=== PATIENT | female | born 1950 | race Caucasian/White ===

== ENCOUNTER 2019-03-24 18:11 | Emergency (ER) | payer OTHER ==
--- NOTE | 2019-03-24 19:52 | RAD REPORT ---
EXAM DESCRIPTION: RAD - Ankle Right 3 View - 03/24/2019 7:35 pm CLINICAL HISTORY: Right ankle pain FINDINGS: No fracture or dislocation is seen. Soft tissue swelling is present
--- NOTE | 2019-03-24 19:55 | RAD REPORT ---
EXAM DESCRIPTION: RAD - Foot Right 3 View - 03/24/2019 7:35 pm CLINICAL HISTORY: Right foot pain FINDINGS: No fracture or dislocation is seen Osteoporosis Soft tissue swelling
--- NOTE | 2019-03-24 20:24 | EDPHYS ---
[facility] Name: Sharmaine Amaya Age: 69 yrs Sex: Female : 1950 Arrival Date: 03/24/2019 Time: 18:14 Bed 19 Private MD: ED Physician Jay Brewster HPI: 03/24 18:50 This 69 yrs old Female presents to ER via Ambulatory with complaints of Foot cp Pain. 18:50 The patient presents with pain, that is acute, swelling, tenderness. The complaints cp affect the right foot. Context: resulted from an unknown cause, the patient can fully bear weight, the patient is able to ambulate, with mild difficulty. 18:50 Onset: The symptoms/episode began/occurred 5 day(s) ago. cp 18:50 Associated signs and symptoms: Pertinent positives: swelling, Pertinent negatives calf cp tenderness, numbness, tingling. Treatment prior to arrival includes: no previous treatment. Historical: - Allergies: 18:19 Demerol; la1 18:19 Morphine; la1 - PMHx: 18:19 None; la1 - Immunization history:: Adult Immunizations up to date. - Social history:: Smoking status: Patient/guardian denies using tobacco. - Ebola Screening: : No symptoms or risks identified at this time. ROS: 19:00 Constitutional: Negative for body aches, chills, fever, poor PO intake. cp 19:00 Eyes: Negative for injury, pain, redness, and discharge. cp 19:00 ENT: Negative for drainage from ear(s), ear pain, sore throat, difficulty swallowing, difficulty handling secretions. 19:00 Cardiovascular: Negative for chest pain, palpitations. 19:00 Respiratory: Negative for cough, shortness of breath, wheezing. 19:00 Abdomen/GI: Negative for abdominal pain, nausea, vomiting, and diarrhea. 19:00 MS/extremity: Positive for pain, swelling, tenderness, of the right foot, Negative for injury or acute deformity, decreased range of motion, paresthesias. 19:00 Neuro: Negative for altered mental status, headache. 19:00 All other systems are negative. Exam: 19:15 Constitutional: The patient appears in no acute distress, alert, awake, cp non-diaphoretic, non-toxic, well developed, well nourished. 19:15 Head/Face: Normocephalic, atraumatic. cp 19:15 Eyes: Periorbital structures: appear normal, Conjunctiva: normal, no exudate, no injection, Lids and lashes: appear normal, bilaterally. 19:15 ENT: External ear(s): are unremarkable, Nose: is normal, Mouth: is normal, Posterior pharynx: Airway: no evidence of obstruction, patent. 19:15 Chest/axilla: Inspection: normal. 19:15 Cardiovascular: Rate: normal. 19:15 Respiratory: the patient does not display signs of respiratory distress, Respirations: normal, no use of accessory muscles, no retractions. 19:15 Abdomen/GI: Inspection: abdomen appears normal. 19:15 Musculoskeletal/extremity: Extremities: grossly normal except: noted in the right ankle and right foot: ecchymosis, pain, swelling, tenderness, There is no evidence of deformity, Perfusion: the extremity is warm, mottled, Calf tenderness, is absent, Sensation intact. 19:15 Skin: cellulitis, is not appreciated. Vital Signs: 18:20 BP 160 / 69; Pulse 75; Resp 16; Temp 97.1; Pulse Ox 98% on R/A; la1 MDM: 18:34 Patient medically screened. cp 20:00 Differential diagnosis: dislocation, closed fracture, contusion, sprain, strain. cp 20:23 Data reviewed: vital signs, nurses notes, radiologic studies, plain films. cp 20:23 Test interpretation: by ED physician or midlevel provider: plain radiologic studies. cp Counseling: I had a detailed discussion with the patient and/or guardian regarding: the historical points, exam findings, and any diagnostic results supporting the discharge/admit diagnosis, radiology results, to return to the emergency department if symptoms worsen or persist or if there are any questions or concerns that arise at home. 03/24 18:45 Order name: XRAY Foot RIGHT 3 View cp 03/24 18:45 Order name: XRAY Ankle RIGHT 3 view cp 03/24 20:21 Order name: Crutches; Complete Time: 20:41 cp 03/24 20:22 Order name: Post-op shoe; Complete Time: 20:41 cp Administered Medications: No medications were administered Disposition: 03/24/19 20:23 Discharged to Home. Impression: Pain in right ankle and joints of right foot. - Condition is Stable. - Discharge Instructions: Foot Sprain, Ankle Pain. - Prescriptions for Ibuprofen 600 mg Oral Tablet - take 1 tablet by ORAL route every 6 hours As needed take with food; 30 tablet. - Medication Reconciliation Form, Thank You Letter, Antibiotic Education, Prescription Opioid Use form. - Follow up: Private Physician; When: 5 - 6 days; Reason: Worsening of condition. - Problem is new. - Symptoms have improved. Addendum: 03/27/2019 13:54 Co-signature as Attending Physician, Jay Brewster MD. r n Signatures: Dispatcher [employer] EDMS Danielle Jenkins RN RN Jay Michaud MD MD rn Attema, Lee RN RN la1 Sabas Driver PA PA cp Corrections: (The following items were deleted from the chart) 03/24 20:21 20:21 Knee Immobilizer ordered. cp cp 20:42 20:23 03/24/2019 20:23 Discharged to Home. Impression: Pain in right ankle and joints aj of right foot. Condition is Stable. Forms are Medication Reconciliation Form, Thank You Letter, Antibiotic Education, Prescription Opioid Use. Follow up: Private Physician; When: 5 - 6 days; Reason: Worsening of condition. Problem is new. Symptoms have improved. cp
--- NOTE | 2019-03-24 20:24 | ER ---
Nurse's Notes [facility] Name: Sharmaine Amaya Age: 69 yrs Sex: Female : 1950 Arrival Date: 03/24/2019 Time: 18:14 Bed 19 Private MD: Diagnosis: Pain in right ankle and joints of right foot Presentation: 03/24 18:20 Presenting complaint:. Presenting complaint: Patient states: My right foot has been la1 swelling on and off for the last 4-5 days. Transition of care: patient was not received from another setting of care. Onset of symptoms was March 24, 2019. Risk Assessment: Do you want to hurt yourself or someone else? Patient reports no desire to harm self or others. Initial Sepsis Screen: Does the patient meet any 2 criteria? No. Patient's initial sepsis screen is negative. Does the patient have a suspected source of infection? No. Patient's initial sepsis screen is negative. Care prior to arrival: None. 18:20 Method Of Arrival: Ambulatory la1 18:20 Acuity: YOKO 4 la1 Historical: - Allergies: 18:19 Demerol; la1 18:19 Morphine; la1 - PMHx: 18:19 None; la1 - Immunization history:: Adult Immunizations up to date. - Social history:: Smoking status: Patient/guardian denies using tobacco. - Ebola Screening: : No symptoms or risks identified at this time. Screenin:48 Abuse screen: Denies threats or abuse. Denies injuries from another. Nutritional aj screening: No deficits noted. Tuberculosis screening: No symptoms or risk factors identified. Fall Risk None identified. Assessment: 18:48 General: Appears in no apparent distress. comfortable, Behavior is calm, cooperative, aj appropriate for age. Pain: Complains of pain in right foot and left foot. Neuro: Level of Consciousness is awake, alert, obeys commands, Oriented to person, place, time, situation, Appropriate for age. Respiratory: Airway is patent Trachea midline Respiratory effort is even, unlabored, Respiratory pattern is regular, symmetrical. Derm: Skin is intact, is healthy with good turgor, Skin is pink, warm \T\ dry. normal, Rash noted that is red, on right leg and left leg. 20:41 Reassessment: Patient appears in no apparent distress at this time. No changes from aj previously documented assessment. Patient and/or family updated on plan of care and expected duration. Pain level reassessed. Patient is alert, oriented x 3, equal unlabored respirations, skin warm/dry/pink. Vital Signs: 18:20 BP 160 / 69; Pulse 75; Resp 16; Temp 97.1; Pulse Ox 98% on R/A; la1 ED Course: 18:14 Patient arrived in ED. as 18:19 Arm band placed on left wrist. la1 18:21 Triage completed. la1 18:25 Sabas Driver PA is PHCP. cp 18:25 Jay Brewster MD is Attending Physician. cp 18:37 Danielle Jenkins, RN is Primary Nurse. aj 18:48 Patient has correct armband on for positive identification. aj 19:36 XRAY Foot RIGHT 3 View In Process Unspecified. EDMS 19:36 XRAY Ankle RIGHT 3 view In Process Unspecified. EDMS 20:41 No provider procedures requiring assistance completed. Patient did not have IV access aj during this emergency room visit. Crutch training done. Ortho shoe applied to right foot. Administered Medications: No medications were administered Outcome: 20:23 Discharge ordered by MD. cp 20:41 Discharged to home ambulatory, with crutches. aj 20:41 Condition: good 20:41 Discharge instructions given to patient, Instructed on discharge instructions, follow up and referral plans. medication usage, crutch walking, Demonstrated understanding of instructions, follow-up care, medications, crutch walking, Prescriptions given X 1. 20:42 Patient left the ED. aj Signatures: Dispatcher [employer] EDMS Danielle Jenkins, RN Brenad Ortiz Lee RN Sabas Sherwood PA PA cp
[2019-03-24 20:47] VITALS: BP 160/69; TEMP 97.1; O2SAT 98
== END 2019-03-24 20:42 | disposition home or self-care (01) ==
LOC: ER 18:11
DX: M25.571 Pain in right ankle and joints of right foot (principal); Z88.6 Allergy status to analgesic agent
CPT/HCPCS: 99283

== ENCOUNTER 2021-03-24 01:25 | Emergency (ER) | payer OTHER ==
[2021-03-24] MEDS ORDERED: NA CHLORIDE 0.9% 500 ML ONE (02:15)
[2021-03-24] MEDS ORDERED: ONDANSETRON 4 MG/2 ML VIAL ONE ×2 (02:15→06:47)
[2021-03-24] MEDS ORDERED: FENTANYL CITR 100 MCG/2 ML ONE ×2 (02:15→06:47)
[2021-03-24] MEDS ORDERED: KETOROLAC 30 MG/ML INJ ONE (02:15)
--- NOTE | 2021-03-24 06:50 | EDPHYS ---
Physician Documentation [facility] Name: Sharmaine Amaya Age: 71 yrs Sex: Female : 1950 Arrival Date: 03/24/2021 Time: 01:32 Bed 4 Private MD: ED Physician Sabas Licona HPI: 03/24 01:53 This 71 yrs old Female presents to ER via EMS with complaints of fall off jessica ladder , right knee pain. 01:53 The patient presents with decreased range of motion, pain. The complaints affect the [facility] right knee. Context: The problem was sustained at home. Onset: The symptoms/episode began/occurred just prior to arrival. Modifying factors: The symptoms are alleviated by elevating leg, remaining still, the symptoms are aggravated by weight bearing, bending knee. Associated signs and symptoms: The patient has no apparent associated signs or symptoms. Treatment prior to arrival includes: no previous treatment. Severity of symptoms: At their worst the symptoms were moderate, in the emergency department the symptoms are unchanged. The patient has not experienced similar symptoms in the past. Historical: - Allergies: 01:43 Demerol; jm8 01:43 Morphine; jm8 01:43 Iodinated Contrast Media - IV Dye; jm8 01:44 Neomycin Sulfate; jm8 01:44 Bacitracin Zinc; jm8 01:44 Polymyxin B Sulfate; jm8 01:44 Gramicidin D; jm8 01:44 BACITRACIN; jm8 01:44 benzalkonium chloride; jm8 01:44 triclosan; jm8 - Home Meds: 01:44 aspirin 81 mg Oral tab 81 mg daily [Active]; jm8 - PMHx: 01:44 None; jm8 - PSHx: 01:44 None; jm8 - Immunization history:: Adult Immunizations up to date, Client reports having NOT received the Covid vaccine. - Social history:: Smoking status: Patient denies any tobacco usage or history of. - Family history:: not pertinent. ROS: 01:53 Constitutional: Negative for fever, chills, and weight loss, Eyes: Negative for injury, jessica pain, redness, and discharge, ENT: Negative for injury, pain, and discharge, Neck: Negative for injury, pain, and swelling, Cardiovascular: Negative for chest pain, palpitations, and edema, Respiratory: Negative for shortness of breath, cough, wheezing, and pleuritic chest pain, Abdomen/GI: Negative for abdominal pain, nausea, vomiting, diarrhea, and constipation, Back: Negative for injury and pain, : Negative for injury, bleeding, discharge, and swelling, Skin: Negative for injury, rash, and discoloration, Neuro: Negative for headache, weakness, numbness, tingling, and seizure, Psych: Negative for depression, anxiety, suicide ideation, homicidal ideation, and hallucinations, Allergy/Immunology: Negative for hives, rash, and allergies, Endocrine: Negative for neck swelling, polydipsia, polyuria, polyphagia, and marked weight changes, Hematologic/Lymphatic: Negative for swollen nodes, abnormal bleeding, and unusual bruising. 01:53 MS/extremity: Positive for decreased range of motion, pain, swelling, tenderness, of the right knee. Exam: 01:53 Constitutional: This is a well developed, well nourished patient who is awake, alert, jessica and in no acute distress. Head/Face: Normocephalic, atraumatic. Eyes: Pupils equal round and reactive to light, extra-ocular motions intact. Lids and lashes normal. Conjunctiva and sclera are non-icteric and not injected. Cornea within normal limits. Periorbital areas with no swelling, redness, or edema. ENT: Nares patent. No nasal discharge, no septal abnormalities noted. Tympanic membranes are normal and external auditory canals are clear. Oropharynx with no redness, swelling, or masses, exudates, or evidence of obstruction, uvula midline. Mucous membranes moist. Neck: Trachea midline, no thyromegaly or masses palpated, and no cervical lymphadenopathy. Supple, full range of motion without nuchal rigidity, or vertebral point tenderness. No Meningismus. Chest/axilla: Normal chest wall appearance and motion. Nontender with no deformity. No lesions are appreciated. Cardiovascular: Regular rate and rhythm with a normal S1 and S2. No gallops, murmurs, or rubs. Normal PMI, no JVD. No pulse deficits. Respiratory: Lungs have equal breath sounds bilaterally, clear to auscultation and percussion. No rales, rhonchi or wheezes noted. No increased work of breathing, no retractions or nasal flaring. Abdomen/GI: Soft, non-tender, with normal bowel sounds. No distension or tympany. No guarding or rebound. No evidence of tenderness throughout. Back: No spinal tenderness. No costovertebral tenderness. Full range of motion. Female : Normal external genitalia. Skin: Warm, dry with normal turgor. Normal color with no rashes, no lesions, and no evidence of cellulitis. Neuro: Awake and alert, GCS 15, oriented to person, place, time, and situation. Cranial nerves II-XII grossly intact. Motor strength 5/5 in all extremities. Sensory grossly intact. Cerebellar exam normal. Normal gait. Psych: Awake, alert, with orientation to person, place and time. Behavior, mood, and affect are within normal limits. 01:53 Musculoskeletal/extremity: ROM: limited passive range of motion, limited active range of motion due to pain, Circulation is intact in all extremities. Sensation intact. Compartment Syndrome exam of affected extremity: is normal. Weight bearing: is unable to bear weight. Vital Signs: 01:38 BP 138 / 70; Pulse 95; Resp 16; Temp 98.3; Pulse Ox 100% ; Weight 56.7 kg; Height 5 ft. jm8 7 in. (170.18 cm); Pain 10/10; 04:31 BP 124 / 66; Pulse 87; Resp 16; Pulse Ox 100% on R/A; ak2 06:45 BP 121 / 77; Pulse 87; Resp 16; Pulse Ox 99% on R/A; jm8 01:38 Body Mass Index 19.58 (56.70 kg, 170.18 cm) 8 MDM: 01:40 Patient medically screened. jessica 01:55 Differential diagnosis: dislocation, closed fracture, contusion. Data reviewed: vital jessica signs, nurses notes, radiologic studies, plain films. Data interpreted: youth nutritional monitor: rate is 95 beats/min, rhythm is regular. Test interpretation: by ED physician or midlevel provider: plain radiologic studies. Counseling: I had a detailed discussion with the patient and/or guardian regarding: the historical points, exam findings, and any diagnostic results supporting the discharge/admit diagnosis, lab results, radiology results. 03/24 02:38 Order name: Knee Right Wo Cont EDHI 03/24 03:13 Order name: Wrist Right 3 View EDHI 03/24 03:13 Order name: Knee Right 2 View EDHI 03/24 01:49 Order name: Ice pack; Complete Time: 01:51 jessica 03/24 05:34 Order name: Knee Immobilizer; Complete Time: 06:44 jessica 03/24 05:34 Order name: Splint - Wrist: COCK UP; Complete Time: 06:44 jessica Administered Medications: 02:04 Drug: NS 0.9% 500 ml Route: IV; Rate: bolus; Site: right antecubital; jm8 02:04 Drug: Ketorolac 30 mg Route: IVP; Site: right antecubital; jm8 02:04 Drug: fentaNYL (PF) 25 mcg Route: IVP; Site: right antecubital; jm8 02:04 Drug: Zofran (Ondansetron) 4 mg Route: IVP; Site: right antecubital; jm8 02:08 Drug: fentaNYL (PF) 25 mcg Route: IVP; Site: right antecubital; jm8 06:44 Drug: Zofran (Ondansetron) 4 mg Route: IVP; Site: left antecubital; jm8 06:45 Drug: fentaNYL (PF) 50 mcg Route: IVP; Site: right antecubital; jm8 Disposition Summary: 03/24/21 05:39 Discharge Ordered Location: Home jessica Problem: new jessica Symptoms: have improved jessica Condition: Fair jessica Diagnosis - Displaced fracture of lateral condyle of right tibia - COMMINUTED DEPRESSED 1.5 jessica CM,COMMINUTED FRACTURE FIBULAR HEAD AND NECK - Sprain of other part of right wrist and hand jessica - Fall (on) (from) unspecified stairs and steps jessica Followup: jessica - With: Private Physician - When: 2 - 3 days - Reason: Recheck today's complaints, Continuance of care, Re-evaluation by your physician Followup: jessica - With: Devendra Franklin MD - When: 2 - 3 days - Reason: Recheck today's complaints, Continuance of care, Re-evaluation by your physician Discharge Instructions: - Discharge Summary Sheet jessica - Tibial and Fibular Fractures jessica - Tibial Fracture, Adult jessica - Tibial Plateau Fracture Treated With ORIF, Care After jessica - Tibial Fracture, Adult, [id number] jessica - Tibial Plateau Fracture Treated With ORIF jessica Forms: - Medication Reconciliation Form jessica - Thank You Letter jessica - Antibiotic Education jessica - Prescription Opioid Use jessica Prescriptions: - Ibuprofen 600 mg Oral Tablet - take 1 tablet by ORAL route every 6 hours As needed take with food; 20 tablet; jessica Refills: 0, Product Selection Permitted - Tramadol 50 mg Oral Tablet - take 1 tablet by ORAL route every 6 hours as needed; 30 tablet; Refills: 0, jessica Product Selection Permitted Signatures: Dispatcher [employer] Sabas Anderson MD MD cha Malcaba, Joseph RN RN jm8 Corrections: (The following items were deleted from the chart) 03:13 01:50 Knee Right 3 View+RAD.[email or web address].[email or web address] ordered. LINDA MCKEON
--- NOTE | 2021-03-24 06:50 | ER ---
Nurse's Notes [facility] Name: Sharmaine Amaya Age: 71 yrs Sex: Female : 1950 Arrival Date: 03/24/2021 Time: 01:32 Bed 4 Private MD: Diagnosis: Displaced fracture of lateral condyle of right tibia-COMMINUTED DEPRESSED 1.5 CM,COMMINUTED FRACTURE FIBULAR HEAD AND NECK;Sprain of other part of right wrist and hand;Fall (on) (from) unspecified stairs and steps Presentation: 03/24 01:38 Chief complaint: EMS states: patient was working in her garage and fell off a 3 step jm8 step stool. States she landed on her right hip and right wrist. Complains of pain in both. Coronavirus screen: Client denies travel out of the [place] in the last 14 days. At this time, the client does not indicate any symptoms associated with coronavirus-19. Ebola Screen: Patient negative for fever greater than or equal to 101.5 degrees Fahrenheit, and additional compatible Ebola Virus Disease symptoms Patient denies exposure to infectious person. Patient denies travel to an Ebola-affected area in the 21 days before illness onset. Initial Sepsis Screen: Does the patient meet any 2 criteria? No. Patient's initial sepsis screen is negative. Does the patient have a suspected source of infection? No. Patient's initial sepsis screen is negative. Risk Assessment: Do you want to hurt yourself or someone else? Patient reports no desire to harm self or others. Onset of symptoms was March 24, 2021 at 00:00. 01:38 Method Of Arrival: EMS: [facility] 01:38 Acuity: YOKO 3 jm8 Triage Assessment: 01:47 General: Appears in no apparent distress. uncomfortable, Behavior is calm, cooperative, jm8 appropriate for age. Pain: Complains of pain in right knee and right wrist Pain currently is 10 out of 10 on a pain scale. Quality of pain is described as aching, crampy, Pain began 2 hours ago. EENT: No deficits noted. No signs and/or symptoms were reported regarding the EENT system. Neuro: No deficits noted. Neuro: Level of Consciousness is awake, alert, obeys commands, Oriented to person, place, time. Cardiovascular: No deficits noted. Respiratory: No deficits noted. Airway is patent Trachea midline Respiratory effort is even, unlabored, Respiratory pattern is regular, symmetrical. GI: No deficits noted. No signs and/or symptoms were reported involving the gastrointestinal system. : No deficits noted. No signs and/or symptoms were reported regarding the genitourinary system. Derm: No deficits noted. No signs and/or symptoms reported regarding the dermatologic system. Musculoskeletal: Bony deformity noted of right knee Swelling present in right knee Reports pain in right knee. Historical: - Allergies: 01:43 Demerol; jm8 01:43 Morphine; jm8 01:43 Iodinated Contrast Media - IV Dye; jm8 01:44 Neomycin Sulfate; jm8 01:44 Bacitracin Zinc; jm8 01:44 Polymyxin B Sulfate; jm8 01:44 Gramicidin D; jm8 01:44 BACITRACIN; jm8 01:44 benzalkonium chloride; jm8 01:44 triclosan; jm8 - Home Meds: 01:44 aspirin 81 mg Oral tab 81 mg daily [Active]; jm8 - PMHx: 01:44 None; jm8 - PSHx: 01:44 None; jm8 - Immunization history:: Adult Immunizations up to date, Client reports having NOT received the Covid vaccine. - Social history:: Smoking status: Patient denies any tobacco usage or history of. - Family history:: not pertinent. Screenin:46 Abuse screen: Denies threats or abuse. Denies injuries from another. Nutritional jm8 screening: No deficits noted. Tuberculosis screening: No symptoms or risk factors identified. Fall Risk None identified. Assessment: 04:31 Reassessment: Patient and/or family updated on plan of care and expected duration. Pain ak2 level reassessed. 08:00 Reassessment: Patient appears in no apparent distress at this time. Patient and/or jl7 family updated on plan of care and expected duration. Pain level reassessed. Neuro: Level of Consciousness is awake, alert, obeys commands, Oriented to person, place, time, situation. Cardiovascular: Patient's skin is warm and dry. Respiratory: Airway is patent Respiratory effort is even, unlabored, Respiratory pattern is regular, symmetrical. Derm: Skin is pink, warm \T\ dry. Vital Signs: 01:38 BP 138 / 70; Pulse 95; Resp 16; Temp 98.3; Pulse Ox 100% ; Weight 56.7 kg; Height 5 ft. jm8 7 in. (170.18 cm); Pain 10/10; 04:31 BP 124 / 66; Pulse 87; Resp 16; Pulse Ox 100% on R/A; ak2 06:45 BP 121 / 77; Pulse 87; Resp 16; Pulse Ox 99% on R/A; jm8 01:38 Body Mass Index 19.58 (56.70 kg, 170.18 cm) jm8 ED Course: 01:32 Patient arrived in ED. mw2 01:40 Sabas Licona MD is Attending Physician. jessica 01:41 Triage completed. jm8 01:46 Patient has correct armband on for positive identification. Bed in low position. Call jm8 light in reach. Side rails up X2. Adult w/ patient. 01:46 Arm band placed on left wrist. jm8 03:46 Wrist Right 3 View In Process Unspecified. EDMS 03:46 Knee Right 2 View In Process Unspecified. EDMS 04:11 Knee Right Wo Cont In Process Unspecified. EDMS 05:34 Devendra Franklin MD is Referral Physician. jessica 08:25 No provider procedures requiring assistance completed. IV discontinued, intact, jl7 bleeding controlled, No redness/swelling at site. Pressure dressing applied. Velcro wrist splint applied to right wrist. knee immobilizer to right knee. Administered Medications: 02:04 Drug: NS 0.9% 500 ml Route: IV; Rate: bolus; Site: right antecubital; jm8 02:04 Drug: Ketorolac 30 mg Route: IVP; Site: right antecubital; jm8 02:04 Drug: fentaNYL (PF) 25 mcg Route: IVP; Site: right antecubital; jm8 02:04 Drug: Zofran (Ondansetron) 4 mg Route: IVP; Site: right antecubital; jm8 02:08 Drug: fentaNYL (PF) 25 mcg Route: IVP; Site: right antecubital; jm8 06:44 Drug: Zofran (Ondansetron) 4 mg Route: IVP; Site: left antecubital; jm8 06:45 Drug: fentaNYL (PF) 50 mcg Route: IVP; Site: right antecubital; jm8 Outcome: 05:39 Discharge ordered by . jessica 08:28 Discharged to home ambulatory, with family. simba 08:28 Condition: stable 08:28 Discharge instructions given to patient, family, Instructed on discharge instructions, follow up and referral plans. medication usage, Demonstrated understanding of instructions, follow-up care, medications. 08:28 Patient left the ED. jl7 Signatures: Dispatcher [employer] EDMS Sabas Licona MD MD cha Leal, Jahala RN RN [id number] Henry Bazan 2 Roly Osman RN RN jm8 Marcial Meehan la2 Corrections: (The following items were deleted from the chart) 02:05 02:04 fentaNYL (PF) 25 mcg IVP in right antecubital roslyn mcgowan
[2021-03-24 08:33] VITALS: TEMP 98.3
[2021-03-24 08:36] VITALS: BP 121/77; O2SAT 99
--- NOTE | 2021-03-24 09:05 | RAD REPORT ---
EXAM DESCRIPTION: RAD - Knee Right 2 View - 03/24/2021 3:46 am CLINICAL HISTORY: PAIN, fall, leg pain COMPARISON: Knee Right Wo Cont dated 03/24/2021 FINDINGS: Oblique fracture is present through the proximal fibula without significant displacement o r angulation. Lateral tibial plateau fracture is present with significant depression of approximately 15 mm. This a ppears to be a comminuted fracture. Medial tibial plateau is intact. No distal femur abnormality.Larg e lipohemarthrosis present. No foreign body or soft tissue abnormality. IMPRESSION: Comminuted lateral tibial plateau depressed fracture. Proximal fibula fracture without significant distraction or angulation deformity. Large lipohemarthrosis
--- NOTE | 2021-03-24 09:06 | RAD REPORT ---
EXAM DESCRIPTION: RAD - Wrist Right 3 View - 03/24/2021 3:46 am CLINICAL HISTORY: RT WRIST PAIN S/P FALL COMPARISON: No comparisons FINDINGS: No fracture is identified. There is no dislocation or periosteal reaction noted. Significa nt degenerative changes are present at the trapezium first metacarpal articulation. More mild degener ative changes present between the scaphoid and the trapezium. Radiocarpal joint space is narrowed sli ghtly. No suspicious soft tissue finding. IMPRESSION: Right wrist degenerative change as detailed. No fracture identifiable.
--- NOTE | 2021-03-24 19:56 | RAD REPORT ---
EXAM DESCRIPTION: CT - Knee Right Wo Cont - 03/24/2021 6:52 am CLINICAL HISTORY: The patient is 71 years old and is Female; pain TECHNIQUE: Axial computed tomography images of the right knee without intravenous contrast. Sagitt al and coronal reformatted images were created and reviewed. This CT exam was performed using one o r more of the following dose reduction techniques: automated exposure control, adjustment of the mA and/or kV according to patient size, and/or use of iterative reconstruction technique. COMPARISON: No relevant prior studies available. FINDINGS: Bones/joints: Comminuted fracture in the fibular head and neck, not significantly displa jeff. Large lipohemarthrosis. Comminuted tibial plateau fracture. There is up to 1.5 cm depression in the lateral tibial pl ateau. The fracture lines extend to the medial tibial plateau although are nondepressed medially. No acute fracture in the distal femur or patella. No dislocation. Soft tissues: Soft tissue swelling and edema. IMPRESSION: 1. Comminuted depressed tibial plateau fracture. Large lipohemarthrosis. 2. Comminuted fracture in the fibular head and neck, not significantly displaced. Electronically signed by: Lindsay Allen MD 03/24/2021 4:34 AM CDT Due to temporary technical issues with the PACS/Fluency reporting system, reports are being signed by the in house radiologists without review as a courtesy to insure prompt reporting. The interpreting radiologist is fully responsible for the content of the report.
== END 2021-03-24 08:28 | disposition home or self-care (01) ==
LOC: ER 01:25
DX: S82.831A Other fracture of upper and lower end of right fibula, initial encounter for closed fracture (principal); S82.121A Displaced fracture of lateral condyle of right tibia, initial encounter for closed fracture; S63.91XA Sprain of unspecified part of right wrist and hand, initial encounter; W11.XXXA Fall on and from ladder, initial encounter; Y92.009 Unspecified place in unspecified non-institutional (private) residence as the place of occurrence of the external cause; Z79.82 Long term (current) use of aspirin; Z88.1 Allergy status to other antibiotic agents; Z88.5 Allergy status to narcotic agent; Z88.8 Allergy status to other drugs, medicaments and biological substances; Z91.041 Radiographic dye allergy status
CPT/HCPCS: 73700; 73110; 73560; 96375; 96374; 99284; J3010 ×2; J7040; J2405 ×2

== ENCOUNTER 2023-03-04 16:05 | Emergency (ER) | payer OTHER ==
--- OUTSIDE RECORDS SUMMARY | 2023-03-04 16:10 | XMS REPORT | Continuity of Care Document ---
:1950 Author Organization [facility] t Address [address] [facility] [address] [place] [address] Care Team Providers Name Role Phone System, Pcp Not In Primary Care Physician SHAHNAZ CRISOSTOMO Attending Clinician Unavailable ARI COBURN Attending Clinician Unavailable Noble Bonilla MD Attending Clinician Garrison FERNANDEZ, Yines T Attending Clinician Soraya FERNANDEZ, Perico P Attending Clinician Dayo Martinez MD Attending Clinician Bree FERNANDEZ, Tiffany Vilchis Attending Clinician [phone] DAYO MARTINEZ Attending Clinician Unavailable NOBLE BONILLA Attending Clinician Unavailable Shahnaz Crisostomo MD Attending Clinician SHAHNAZ CRISOSTOMO Attending Clinician Unavailable SHAHNAZ CRISOSTOMO Admitting Clinician Unavailable Payers Payer Name Policy Type Policy Number Effective Date Expiration Date S ource HU[employer]NA FFS [id number] 2019 00:00:00 [employer] MEDICARE [id number] 2019 ADV 00:00:00 Problems Condition Condition Condition Status Onset Resolution Last Treating Co mments Source Name Details Category Date Date Treatment Clinician Date Displaced Displaced Disease Active [facility] lateral of lateral 00:00: Me dical condyle of condyle of 00 Ce nter right right tibia, tibia, initial initial encounter encounter for closed for closed fracture fracture Tibial Tibial Disease Active [facility] plateau plateau 04-07 [facility] fracture fracture 00:00: Medica l 00 Center Closed Closed Disease Active Overview: [facility] displaced displaced 04-06 [facility] fracture fracture 00:00: g of this of of lateral of lateral 00 note Me dicin condyle of condyle of might be e right right different tibia tibia from the original. Assessmen t:DOI - 03/24/21 - R morgan 2 tibial plateauDO S - 04/07/21 - ORIF R morgan 2 tibial plateauPl an:- xray looks great. Good alignment of the knee and joint space maintaine d- okay to start weight bearing on the leg with both crutches. Advance to 1 crutch as feeling better- having difficult y getting around so will defer PT for now.Medic ations: Ca/Vit DWeight Bearing Status: WBATPT / OT: Range of motion exercises and isometric muscles strengthe aparna exercises were demonstra timmy with the patient. RTC: 3 months telephone Radiograp hs at next visit: none Allergies, Adverse Reactions, Alerts Allergy Allergy Status Severity Reaction(s) Onset Inactive Treating Comm ents Source Name Type Date Date Clinician PISTACHI Allergy Active High Hives [facility] O NUT 04-08 00:00: 00 CASHEW Allergy Active High Hives [facility] NUT 04-08 00:00: 00 MANDARIN Allergy Active Itching [facility] ORANGE 04-08 00:00: 00 Cashew Propensi Active Hives [facility] Nut ty to 04-08 [facility] adverse 00:00: Medical reaction 00 Center s Mandarin Propensi Active [facility]ching [facility] [place] [facility] to 04[facility] adverse 00:00: Medical reaction 00 Center s Pistachi Drug Active Hives [facility] o Nut Allergy 04-08 [facility] 00:00: Medical 00 Center Cashew Propensi Active Hives [facility] ty to 04-08 College adverse 00:00: of reaction 00 Medicin s to e drug Iodinate Propensi Active Itching [facility] to 04-08 [place] adverse 00:00: of ic reaction 00 Medicin Agents s to e drug Pistachi Propensi Active Hives [facility] o Nut ty to 04-08 College Extract adverse 00:00: of Skin reaction 00 Medicin Test s to e drug Shrimp Propensi Active Hives 2020- [facility] ty to 04-06 [facility] adverse 00:00: Medical reaction 00 Center s Triclosa Propensi Active Hives, [facility] ty to Swelling 04-06 [facility] adverse 00:00: Medical reaction 00 Center s Meperidi Propensi Active Itching, [facility] ne ty to Rash 04-06 [facility] adverse 00:00: Medical reaction 00 Center s Iodine Propensi Active Hives [facility] ty to 04-06 [facility] adverse 00:00: Medical reaction 00 Center s Morphine Propensi Active Rash [facility] ty to 04-06 [facility] adverse 00:00: Medical reaction 00 Center s Other Propensi Active Cannot [facility] ty to 04-06 use any [facility] adverse 00:00: "fancy" Medical reaction 00 cream; Center s okay with plain petrolium jellyCann ot have neosporin and polyspori n but bacitraci n is okay Poison Propensi Active Other (See [facility] ty to Comments) 04-06 [facility] Extract adverse 00:00: Medical reaction 00 Center s IODINE Allergy Active High Hives 2020- [facility] 04-[facility] 00:[facility]: Medical 00 Center SHRIMP Allergy Active High Hives 2020- [facility] 04-[facility] 00:[facility]: Medical 00 Center Iodine Propensi Active Hives 2020- [facility] ty to 04-06 [place] adverse 00:00: of reaction 00 Medicin s to e drug Meperidi Propensi Active Rash [facility] ne ty to 04-06 College adverse 00:00: of reaction 00 Medicin s to e drug TRICLOSA Allergy Active High Hives 2020- [facility] 04-06 [facility] 00:00: Medical 00 Center Morphine Propensi Active Rash [facility] ty to 7 College adverse 00:00: of reaction 00 Medicin s to e drug OTHER Allergy Active [facility] 04-06 [facility] 00:00: Medical 00 [place] POISON Allergy Active Other [facility] QUYNH 04-06 [facility] EXTRACT 00:00: Medical 00 [place] Poison Propensi Active Other [facility] Quyn[facility] ty to 04-06 reaction( College adverse 00:00: s): Other of reaction 00 (See Medicin s to Comments) e substanc e Shrimp Propensi Active Hives [facility] ty to 04-06 College adverse 00:00: of reaction 00 Medicin s to e food MEPERIDI Allergy Active Low Itching [facility] 04-06 [facility] 00:00: Medical 00 [place] Triclosa Propensi Active Swelling [facility] ty to 04-06 College adverse 00:00: of reaction 00 Medicin s to e drug MORPHINE Allergy Active Low Rash [facility] 04-06 [facility] 00:00: Medical 00 [place] NO KNOWN Allergy Active [facility] ALLERGIE S Social History Social Habit Start Date Stop Date Quantity Comments Source History [facility] Alcohol Std Drinks of Med icine History [facility] ge Alcohol Binge of Medicine History [facility] ge Alcohol Comment of Medici ne Gender identity [facility] alth Sexual orientation [facility] History of Social 2023-02-22 2023-02-22 [facility] function 00:00:00 00:00:00 Exposure to 2023-02-11 2023-02-21 Not sure [facility] SARS-CoV-2 (event) 00:00:00 05:50:00 History [facility] 2021-12-06 2021-12-06 1 [facility] ge Alcohol Frequency 00:00:00 00:00:00 of Medi cine Alcohol intake 2021-04-08 2021-04-08 Ex-drinker [facility] 00:[facility]:00 00:00:00 (finding) [facility] Tobacco use and 2021-04-06 2021-04-06 Smokeless tobacco [facility] exposure 00:00:00 00:00:00 non-user of Medicine Sex Assigned At [address] [facility] 00:00:00 00:00:00 Medical [place] Smoking Status Start Date Stop Date Source Never smoked tobacco [facility] ege of Medicine Medications Ordered Filled Start Stop Current Ordering Indication Dosage Frequency Signature Comments Components Source Medication Medication Date Date Medication? Clinician (SIG) Name Name Aspirin 81 Yes 81mg Take 81 mg B ayl[facility] MG tablet 3-28 by mouth. Colle ge 13:44: of 58 Medicin e Aspirin 81 2020-09 Yes 81mg Take 81 mg B [facility] MG tablet 0-18 by mouth. Colle ge 16:03: of 05 Medicin e Aspirin 81 2020-09 Yes 81mg Take 81 mg B aylor MG tablet 0-11 by mouth. Colle ge 16:11: of 48 Medicin e HYDROcodone Yes 1{tbl} Take [address] -acetaminop 7-30 tablet by [facility] ag ricci (NORCO 23:08: mouth Medica l 10-325) 16 every 6 Center 10-325 mg (six) per tablet hours as needed for Pain. aspirin 81 Yes 81mg QD Take [address] MG EC 7-30 by mouth [facility] tablet 23:08: daily. [address] BIOTIN ORAL 0 Yes QD Take by [facility] 23:08: daily. [address] ZINC ORAL 0 Yes QD Take by [facility] 23:08: daily. [address] gabapentin Yes 300mg Take 1 [facility] (NEURONTIN) 7-28 capsule by Co llege 300 MG 00:00: mouth 3 of capsule 00 times Medicin daily. e gabapentin Yes 300mg Take 1 [facility] (NEURONTIN) 7-28 capsule by Co llege 300 MG 00:00: mouth 3 of capsule 00 times Medicin daily. e gabapentin Yes 300mg Take 1 [facility] (NEURONTIN) 7-28 capsule by Co llege 300 MG 00:00: mouth 3 of capsule 00 times Medicin daily. e hydrocodone Yes Take 1 [facility] -acetaminop 7-26 tablets by Co llege hen (Intense) 00:00: mouth of 10-325 MG 00 every 4-6 Medic in per tablet hours as e needed. Right tibial plateau fracture hydrocodone Yes Take 1 [facility] -acetaminop 7-26 tablets by Co llege hen (Intense) 00:00: mouth of 10-325 MG 00 every 4-6 Medic in per tablet hours as e needed. Right tibial plateau fracture hydrocodone Yes Take 1 [facility] -acetaminop 7-26 tablets by Co llege hen (NORCO) 00:00: mouth of 10-325 MG 00 every 4-6 Medic in per tablet hours as e needed. Right tibial plateau fracture hydrocodone Yes Take 1 [facility] -acetaminop 7-26 tablets by Co llege hen (NORCO) 00:00: mouth of 10-325 MG 00 every 4-6 Medic in per tablet hours as e needed. Right tibial plateau fracture ibuprofen Yes TAKE 1 [facility] (MOTRIN) 7-14 TABLET BY Colleg e 600 MG 00:00: MOUTH of tablet 00 EVERY 6 Medicin HOURS WITH e FOOD NEEDED FOR PAIN tramadol Yes TAKE 1 [facility] (ULTRAM) 50 7-14 TABLET BY Col lege MG tablet 00:00: MOUTH of 00 EVERY 6 Medicin HOURS e NEEDED ibuprofen Yes TAKE 1 [facility] (MOTRIN) 7-14 TABLET BY Colleg e 600 MG 00:00: MOUTH of tablet 00 EVERY 6 Medicin HOURS WITH e FOOD NEEDED FOR PAIN tramadol Yes TAKE 1 [facility] (ULTRAM) 50 7-14 TABLET BY Col lege MG tablet 00:00: MOUTH of 00 EVERY 6 Medicin HOURS e NEEDED ibuprofen Yes TAKE 1 [facility] (MOTRIN) 7-14 TABLET BY Colleg e 600 MG 00:00: MOUTH of tablet 00 EVERY 6 Medicin HOURS WITH e FOOD NEEDED FOR PAIN tramadol Yes TAKE 1 [facility] (ULTRAM) 50 7-14 TABLET BY Col lege MG tablet 00:00: MOUTH of 00 EVERY 6 Medicin HOURS e NEEDED Vital Signs Vital Name Observation Time Observation Value Comments Source HEIGHT 2021-04-07 21:25:00 170.2 cm WEIGHT 2021-04-07 21:25:00 55.929 kg HEIGHT 2021-04-07 07:50:00 170.2 cm WEIGHT 2021-04-07 07:50:00 58.968 kg HEIGHT 2021-04-06 15:00:00 170.2 cm WEIGHT 2021-04-06 15:00:00 58.968 kg Systolic blood 2023-02-22 14:35:00 145 mm[Hg] [facility] pressure Diastolic blood 2023-02-22 14:35:00 76 mm[Hg] [facility] pressure Heart rate 2023-02-22 14:35:00 80 /min [facility] Body temperature 2023-02-22 14:35:00 36.78 [facility] Respiratory rate 2023-02-22 14:35:00 18 /min [facility] Oxygen saturation in 2023-02-22 14:35:00 98 /min [facility] Arterial blood by Pulse oximetry Body height 2023-02-21 06:05:00 157.5 cm [facility] Body weight 2023-02-21 06:05:00 53.071 kg [facility] BMI 2023-02-21 06:05:00 21.40 kg/m2 [facility] Systolic blood 2023-02-22 14:35:00 145 mm[Hg] [facility] pressure Diastolic blood 2023-02-22 14:35:00 76 mm[Hg] [facility] pressure Heart rate 2023-02-22 14:35:00 80 /min [facility] Body temperature 2023-02-22 14:35:00 36.78 [facility] Del [facility] Respiratory rate 2023-02-22 14:35:00 18 /min [facility] Oxygen saturation in 2023-02-22 14:35:00 98 /min [facility] Arterial blood by Pulse oximetry Body height 2023-02-21 06:05:00 157.5 cm [facility] Body weight 2023-02-21 06:05:00 53.071 kg [facility] BMI 2023-02-21 06:05:00 21.40 kg/m2 [facility] Body height 2021-12-06 18:45:00 170.2 cm [facility] Body weight 2021-12-06 18:45:00 55.792 kg [facility] BMI 2021-12-06 18:45:00 19.26 kg/m2 [facility] HEIGHT 2021-04-07 21:25:00 170.2 cm WEIGHT 2021-04-07 21:25:00 55.929 kg HEIGHT 2021-04-07 07:50:00 170.2 cm WEIGHT 2021-04-07 07:50:00 58.968 kg HEIGHT 2021-04-06 15:00:00 170.2 cm WEIGHT 2021-04-06 15:00:00 58.968 kg Procedures Procedure Date / Time Performed Performing Clinician [facility] e URINE DRUG SCREEN 2023-02-22 02:10:00 Noble Bonilla [facility] URINALYSIS W/REFLEX TO 2023-02-22 02:10:00 Noble Bonilla [facility] URINE CULTURE URINALYSIS 2023-02-22 02:10:00 Noble Bonilla claire URINE CULTURE COLLECTION 2023-02-22 02:10:00 Noble Bonilla [facility] KIT CONSULT CLINICAL CASE 2023-02-21 14:25:23 [facility] (RN/SW) A CT HEAD W/O CONTRAST 2023-02-21 10:01:32 Noble Bonilla [facility] BASIC METABOLIC PANEL 2023-02-21 08:21:00 Noble Bonilla [facility] CBC/DIFF 2023-02-21 08:21:00 Noble Bonilla [facility] CBC 2023-02-21 08:21:00 Noble Bonilla [facility] Plan of Care Planned Activity Planned Date Details Comments Source Future Scheduled 2023-05-[address] [facility] Test 00:00:00 (Season Ended) [code Medical Center = Influenza Vaccine (Season Ended)] Future Scheduled 2022-09-[address] [facility] Test 00:00:00 (12+) [code = Medical Center DEPRESSION SCREENING (12+)] Future Scheduled 2022-09-11 FALLS RISK SCREENING [facility] Test 00:00:00 [code = FALLS RISK Medical C enter SCREENING] Future Scheduled 2022-04-[address] [facility] Test 00:00:00 Counseling and Medical Cente r Screening (12+) [code = Tobacco Cessation Counseling and Screening (12+)] Future Scheduled 2021-12-06 Screening for [facility] Test 14:27:22 osteoporosis of Medicine (procedure) [code = 693362347] Future Scheduled 2021-12-06 Pneumococcal 65+ (1 [facility] Test 14:27:22 of 1 - PPSV23) [code of Medi cine = Pneumococcal 65+ (1 of 1 - PPSV23)] Future Scheduled 2021-12-06 MEDICARE AWV [facility] Test 14:27:22 (Initial) [code = of Medicin e MEDICARE AWV (Initial)] Future Scheduled 2021-12-06 FLU VACCINE > 6 Postponed from [facility] College Test 14:27:22 MONTHS [code = FLU 04/11/2021 of Medici ne VACCINE > 6 MONTHS] (Postpone Reason: Patient declined today) Future Scheduled 2021-12-06 FALL SCREEN [code = [facility] Test 14:27:22 FALL SCREEN] of Medicine Future Scheduled 2021-12-06 Screening for [facility] Test 14:27:22 malignant neoplasm of of Med icine colon (procedure) [code = 130813069] Future Scheduled 2021-12-06 Screening for [facility] Col [facility]ge Test 14:27:22 malignant neoplasm of of Med icine breast (procedure) [code = 198050648] Future Scheduled 2021-12-06 COVID-19 Vaccine (1) [facility] [employer] Test 14:27:22 [code = COVID-19 of Medicine Vaccine (1)] Future Scheduled 2021-12-06 TETANUS SHOT (ADULT) [employer] [facility] Test 14:27:22 [code = TETANUS SHOT of Medi cine (ADULT)] Future Scheduled 2021-12-06 Hepatitis C screening [employer] Test 14:27:22 (procedure) [code = of Medic ine 610837668] Future Scheduled 2021-12-06 ZOSTER VACCINE (1 of [employer] [facility] Test 14:27:22 2) [code = ZOSTER of Medicin e VACCINE (1 of 2)] Future Scheduled 2021-12-06 ORT - XR ANKLE RIGHT Ordered: [employer] [facility] Test 13:47:40 3V (CHARGE ONLY) 12/06/2021 of Medicine [code = 64441] Future Scheduled 2021-12-06 ORT - XR FOOT RIGHT 3 Ordered: [employer] Test 13:47:40 V (CHARGE ONLY) [code 12/06/2021 of Med icine = 81771] Future Scheduled 2021-06-28 Screening for [facility] Test 22:21:39 malignant neoplasm of of Med icine colon (procedure) [code = 128943243] Future Scheduled 2021-06-28 Screening for [facility] Test 22:21:39 malignant neoplasm of of Med icine breast (procedure) [code = 264744956] Future Scheduled 2021-06-28 COVID-19 Vaccine (1) [employer] Test 22:21:39 [code = COVID-19 of Medicine Vaccine (1)] Future Scheduled 2021-06-28 TETANUS SHOT (ADULT) [employer] Test 22:21:39 [code = TETANUS SHOT of Medi cine (ADULT)] Future Scheduled 2021-06-28 Hepatitis C screening [facility] Test 22:21:39 (procedure) [code = of Medic ine 600130482] Future Scheduled 2021-06-28 ZOSTER VACCINE (1 of [employer] Test 22:21:39 2) [code = ZOSTER of Medicin e VACCINE (1 of 2)] Future Scheduled 2021-06-28 Screening for [facility] Test 22:21:39 osteoporosis of Medicine (procedure) [code = 231918781] Future Scheduled 2021-06-28 PNEUMOVAX >=65 [facility] Test 22:21:39 (PPSV23) [code = of Medicine PNEUMOVAX >=65 (PPSV23)] Future Scheduled 2021-06-28 MEDICARE AWV [facility] Ro [facility] Test 22:21:39 (Initial) [code = of Medicin e MEDICARE AWV (Initial)] Future Scheduled 2021-06-28 FLU VACCINE > 6 [facility] C [facility] Test 22:21:39 MONTHS [code = FLU of Medici ne VACCINE > 6 MONTHS] Future Scheduled 2021-06-28 FALL SCREEN [code = [facility] Test 22:21:39 FALL SCREEN] of Medicine Future Scheduled 2021-06-21 Screening for [facility] Test 22:32:31 malignant neoplasm of of Med icine colon (procedure) [code = 979272287] Future Scheduled 2021-06-21 Screening for [facility] Test 22:32:31 malignant neoplasm of of Med icine breast (procedure) [code = 691832705] Future Scheduled 2021-06-21 COVID-19 Vaccine (1) [employer] [facility] Test 22:32:31 [code = COVID-19 of Medicine Vaccine (1)] Future Scheduled 2021-06-21 TETANUS SHOT (ADULT) [employer] Test 22:32:31 [code = TETANUS SHOT of Medi cine (ADULT)] Future Scheduled 2021-06-21 Hepatitis C screening [facility] Test 22:32:31 (procedure) [code = of Medic ine 647432122] Future Scheduled 2021-06-21 ZOSTER VACCINE (1 of [employer] Test 22:32:31 2) [code = ZOSTER of Medicin e VACCINE (1 of 2)] Future Scheduled 2021-06-21 Screening for [facility] Test 22:32:31 osteoporosis of Medicine (procedure) [code = 444735935] Future Scheduled 2021-06-21 PNEUMOVAX >=65 [facility] Test 22:32:31 (PPSV23) [code = of Medicine PNEUMOVAX >=65 (PPSV23)] Future Scheduled 2021-06-21 MEDICARE AWV [facility] Ro [facility]ge Test 22:32:31 (Initial) [code = of Medicin e MEDICARE AWV (Initial)] Future Scheduled 2021-06-21 FLU VACCINE > 6 [facility] C [facility]lege Test 22:32:31 MONTHS [code = FLU of Medici ne VACCINE > 6 MONTHS] Future Scheduled 2021-06-21 FALL SCREEN [code = [facility] Test 22:32:31 FALL SCREEN] of Medicine Future Scheduled 2021-06-21 ORT - XR KNEE RIGHT Ordered: [facility] Test 16:13:03 3V (CHARGE ONLY) 06/21/2021 of Medicine [code = 80920] Future Scheduled 2021-04-06 Screening for [facility] Test 08:08:52 malignant neoplasm of of Med icine colon (procedure) [code = 364886203] Future Scheduled 2021-04-06 Screening for [facility] Test 08:08:52 malignant neoplasm of of Med icine breast (procedure) [code = 922241162] Future Scheduled 2021-04-06 COVID-19 Vaccine (1) [employer] [facility] [employer] Test 08:08:52 [code = COVID-19 of Medicine Vaccine (1)] Future Scheduled 2021-04-06 TETANUS SHOT (ADULT) [facility] Test 08:08:52 [code = TETANUS SHOT of Medi cine (ADULT)] Future Scheduled 2021-04-06 Hepatitis C screening [facility] Test 08:08:52 (procedure) [code = of Medic ine 993681949] Future Scheduled 2021-04-06 ZOSTER VACCINE (1 of [facility] Test 08:08:52 2) [code = ZOSTER of Medicin e VACCINE (1 of 2)] Future Scheduled 2021-04-06 FALL SCREEN [code = [facility] [place] Test 08:08:52 FALL SCREEN] of Medicine Future Scheduled 2021-04-06 Screening for [facility] Test 08:08:52 osteoporosis of Medicine (procedure) [code = 699821437] Future Scheduled 2021-04-06 PNEUMOVAX >=65 [facility] Test 08:08:52 (PPSV23) [code = of Medicine PNEUMOVAX >=65 (PPSV23)] Future Scheduled 2021-04-06 MEDICARE AWV [facility] Ro [facility]ge Test 08:08:52 (Initial) [code = of Medicin e MEDICARE AWV (Initial)] Future Scheduled 2021-04-06 FLU VACCINE > 6 [facility] C [facility]lege Test 08:08:52 MONTHS [code = FLU of Medici ne VACCINE > 6 MONTHS] Future Scheduled 2020-09-[address] [facility] Test 00:00:00 WELLNESS (YEAR 2 or Medical Center FIRST YEAR if no IPPE) [code = MEDICARE ANNUAL WELLNESS (YEAR 2 or FIRST YEAR if no IPPE)] Future Scheduled 2014 PNEUMOCOCCAL 65+ YRS [facility] Test 00:00:00 (1 - PCV) [code = Medical Ce nter PNEUMOCOCCAL 65+ YRS (1 - PCV)] Future Scheduled 1999 SHINGLES VACCINES ([address] [facility] Test 00:00:00 of 2) [code = Medical Center SHINGLES VACCINES (1 of 2)] Future Scheduled 1968-02-07 DTAP/TDAP/TD [facility]ACCINES [facility] Test 00:00:00 (1 - Tdap) [code = Medical C enter DTAP/TDAP/TD VACCINES (1 - Tdap)] Future Scheduled 1967 HEPATITIS C [facility]CRE[facility]ING [facility] 00:00:00 [code = HEPATITIS C Medical Center SCREENING] Future Scheduled 1950 COVID-19 VACCINE (#1) [facility] Test 00:00:00 [code = COVID-[address] VACCINE (#1)] Future Scheduled [address] [facility] Test 00:00:00 [facility] [code = 898928993] Future Scheduled [address] [facility] Test 00:00:00 (combo) [code = CT Medical C enter Colonography (combo)] Future Scheduled [address] [facility] Test 00:00:00 malignant neoplasm of Medica l Center colon (procedure) [code = 813532565] Future Scheduled [address] [facility] Test 00:00:00 malignant neoplasm of Medica l Center colon (procedure) [code = 460487436] Future Scheduled 1950 DXA SCAN [code = DXA [facility] Test 00:00:00 SCAN] [facility] Future Scheduled [address] [facility] Test 00:00:00 malignant neoplasm of Medica l Center colon (procedure) [code = 758901622] Future Scheduled [address] [facility] Test 00:00:00 malignant neoplasm of Medica l Center colon (procedure) [code = 083931987] Future Scheduled 1950 Sigmoidoscopy [code = [facility] Test 00:00:[facility] End Encounter Admission Attending Care Care Encounter Source Date/Time Date/Time Type Type Clinicians Facility Department ID 2021-06-20 Outpatient MARGARET CRISOSTOMO Surgery [id number] [facility] 06:18:23 SHAHNAZ 2023-04-03 2023-04-03 Outpatient [facility] [id number] [place] 00:00:00 00:00:00 [facility] 2023-02-21 2023-02-22 Emergency Noble Bonilla [id number] [place] 06:07:00 15:25:00 Riddhi Ji [facility] [id number] [facility] .[id number] Dayo Martinez [id number] Alberto-Tiffany Tierney 2023-02-21 2023-02-22 Emergency [facility] [id number] [place] 06:07:00 15:25:00 [facility] 2023-02-21 2023-02-21 Emergency [facility] [id number] [place] 09:18:00 10:01:38 Health 2023-02-21 2023-02-21 Emergency [facility] [id number] [place] 00:00:00 00:00:[address] [facility] 2023-02-21 2023-02-21 Emergency SANTHAKUMAR [facility] [id number] [place] 00:00:00 00:00:00 , NOBLE cortes 2021-12-06 2021-12-06 Office BRIANNA Crisostomo [id number] [facility] 14:50:00 15:35:46 Visit Shahnaz Mckenzie AMBULATOR [id number] College Y [id number] of [id number] Medi dharmesh 600 e 2021-12-06 2021-12-06 Outpatient [facility] [id number] [facility] 13:50:07 13:50:07 Colleg e of Medicin e 2021-06-28 2021-06-28 Office BRIANNA CRISOSTOMO [id number] [facility] 15:24:40 16:39:54 Visit SHAHNAZ AMBULATOR [id number] College Y [id number] of [id number] Medi dharmesh 600 e 2021-06-21 2021-06-22 Office MICHAEL [facility] [id number] [facility] 15:10:04 07:51:31 Visit SHAHNAZ AMBULATOR [id number] College Y [id number] of [id number] Medi dharmesh 600 e 2021-06-21 2021-06-21 Outpatient [facility] [id number] [facility] 16:14:19 16:14:19 Colleg e of Medicin e 2021-04-26 2021-04-26 Outpatient MIKE CRISOSTOMO [facility] [id number] [facility] 16:19:58 16:19:58 SHAHNAZ Graham e [facility] Medicin e 2021-04-07 2021-04-07 Outpatient [facility] [id number] [facility] 07:07:00 23:59:00 [facility] [employer] 2021-04-07 2021-04-07 Outpatient [facility] [id number] [facility] 00:00:00 07:06:00 [employer] 2021-04-05 2021-04-06 Office MIKE CRISOSTOMO [id number] [facility] 15:58:40 07:54:27 Visit SHAHNAZ AMBULATOR [id number] College Y [id number] of [id number] Medi dharmesh 600 e 2021-04-06 2021-04-06 Outpatient [facility] [id number] [facility] 00:00:00 00:00:00 2021-04-06 2021-04-06 Outpatient [facility] [id number] [facility] 00:00:00 00:00:00 Results Test Description Test Time Test Comments Results Result Comments Source CBC W/PLT COUNT & AUTO DIFFERENTIAL 2021-04-09 05:48:00 Test Item Value Reference Range Interpretation Comme nts WHITE BLOOD CELL COUNT (BEAKER) (test code = 775) 7.2 K/ L 3.5- 10.5 RED BLOOD CELL COUNT (BEAKER) (test code = 761) 3.09 M/ L 3.93-5 .22 L HEMOGLOBIN (BEAKER) (test code = 410) 5.9 GM/DL 11.2-15.7 LL HEMATOCRIT (BEAKER) (test code = 411) 21.4 % 34.1-44.9 L MEAN CORPUSCULAR VOLUME (BEAKER) (test code = 753) 69.3 fL 79. 4-94.8 L MEAN CORPUSCULAR HEMOGLOBIN (BEAKER) (test code = 751) 19.1 pg 25.6-32.2 L MEAN CORPUSCULAR HEMOGLOBIN CONC (BEAKER) (test code = 27.6 GM/DL 32.2-35.5 L 752) RED CELL DISTRIBUTION WIDTH (BEAKER) (test code = 412) 22.3 % 11.7-14.4 H PLATELET COUNT (BEAKER) (test code = 756) 379 K/CU MM 150-450 MEAN PLATELET VOLUME (BEAKER) (test code = 754) 9.7 fL 9.4-12 .3 NUCLEATED RED BLOOD CELLS (BEAKER) (test code = 413) 0 /100 WBC 0 -0 NEUTROPHILS RELATIVE PERCENT (BEAKER) (test code = 429) 67 % LYMPHOCYTES RELATIVE PERCENT (BEAKER) (test code = 430) 17 % MONOCYTES RELATIVE PERCENT (BEAKER) (test code = 431) 10 % EOSINOPHILS RELATIVE PERCENT (BEAKER) (test code = 432) 4 % BASOPHILS RELATIVE PERCENT (BEAKER) (test code = 437) 1 % NEUTROPHILS ABSOLUTE COUNT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
[2023-03-04 16:38] LABS: Absolute Lymphocytes (CBC) 0.7 K/uL (0.7-4.9); Lymphocytes % 8.9 % (15.3-44.8); MCV 89.5 fL (80-100); MPV 8.4 fL (7.6-11.3); RBC Red Blood Cell Count 3.69 M/uL (3.86-4.86)
[2023-03-04 16:50] LABS: Albumin 3.5 g/dL (3.4-5.0); Bilirubin Total 0.5 mg/dL (0.2-1.0)
--- NOTE | 2023-03-04 18:10 | ER ---
Nurse's Notes [facility] Name: Sharamine Amaya Age: 73 yrs Sex: Female : 1950 Arrival Date: 03/04/2023 Time: 16:05 Bed 17 Private MD: Diagnosis: Heat exhaustion, unspecified;Dehydration Presentation: 03/04 16:17 Chief complaint: EMS states: toned out to patient home for heat exhaustion. Coronavirus ld1 screen: At this time, the client does not indicate any symptoms associated with coronavirus-19. Ebola Screen: No symptoms or risks identified at this time. Initial Sepsis Screen: Does the patient meet any 2 criteria? No. Patient's initial sepsis screen is negative. Does the patient have a suspected source of infection? No. Patient's initial sepsis screen is negative. Risk Assessment: Do you want to hurt yourself or someone else? Patient reports no desire to harm self or others. Onset of symptoms was March 04, 2023 at 16:18. 16:17 Method Of Arrival: EMS: [facility] ld1 16:17 Acuity: YOKO 3 ld1 Triage Assessment: 16:18 General: Appears in no apparent distress. uncomfortable, Behavior is anxious. Pain: ld1 Denies pain. EENT: No signs and/or symptoms were reported regarding the EENT system. Neuro: Level of Consciousness is awake, alert, obeys commands, Oriented to person, place, time, situation. Cardiovascular: Capillary refill < 3 seconds Patient's skin is warm and dry. Respiratory: Airway is patent Respiratory effort is even, unlabored. GI: Abdomen is flat, non-distended. : No signs and/or symptoms were reported regarding the genitourinary system. Derm: No signs and/or symptoms reported regarding the dermatologic system. Musculoskeletal: No signs and/or symptoms reported regarding the musculoskeletal system. Historical: - Allergies: 16:18 BACITRACIN; ld1 16:18 Bacitracin Zinc; ld1 16:18 benzalkonium chloride; ld1 16:18 Demerol; ld1 16:18 Gramicidin D; ld1 16:18 Iodinated Contrast Media - IV Dye; ld1 16:18 Morphine; ld1 16:18 Neomycin Sulfate; ld1 16:18 Polymyxin B Sulfate; ld1 16:18 triclosan; ld1 - PMHx: 16:18 Hallucinations; ld1 - PSHx: 16:18 None; ld1 - Immunization history:: Adult Immunizations up to date, Client reports receiving the 2nd dose of the Covid vaccine. - Social history:: Smoking status: Patient denies any tobacco usage or history of. Patient/guardian denies using alcohol. Screenin:20 [facility] ED Fall Risk Assessment (Adult) History of falling in the last 3 months, ld1 including since admission No falls in past 3 months (0 pts). Abuse screen: Denies threats or abuse. Denies injuries from another. Nutritional screening: No deficits noted. Tuberculosis screening: No symptoms or risk factors identified. Assessment: 16:20 Reassessment: See triage assessment. ld1 18:10 Reassessment: Pt sat in bathroom for 30 minutes. Came out without urine - states "I ld1 peed a lot but not in the cup. I don't want yall to test my urine." Notified ERP. Patient denies pain at this time. Patient states symptoms have improved. Vital Signs: 16:17 BP 133 / 60; Pulse 91; Resp 18; Temp 98.8(O); Pulse Ox 96% on R/A; Weight 48.53 kg; ld1 Height 5 ft. 2 in. ; Pain 0/10; 18:10 BP 126 / 66; Pulse 88; Resp 18; Pulse Ox 99% on R/A; Pain 0/10; ld1 16:17 Body Mass Index 19.57 (48.53 kg, 157.48 cm) ld1 16:17 Pain Scale: Adult ld1 18:10 Pain Scale: Adult ld1 ED Course: 16:12 Patient arrived in ED. ld1 16:17 Kate Shook, CLAUDIA is Primary Nurse. ld1 16:17 Sbaas Driver PA is PHCP. cp 16:17 Sabas Licona MD is Attending Physician. cp 16:17 Venita Hunter FNP-C is PHCP. cp 16:18 Triage completed. ld1 16:18 Arm band placed on right wrist. ld1 16:20 Patient has correct armband on for positive identification. Placed in gown. Bed in low ld1 position. Call light in reach. Side rails up X2. hall monitor on. Pulse ox on. NIBP on. Door closed. Noise minimized. Warm blanket given. 16:20 No provider procedures requiring assistance completed. Maintain EMS IV. Dressing ld1 intact. Good blood return noted. Site clean \\T\\ dry. Gauge \\T\\ site: 20G RAC. 16:29 CMP Sent. ld1 16:29 CBC with Diff Sent. ld1 18:11 IV discontinued, intact, bleeding controlled, No redness/swelling at site. ld1 Administered Medications: 16:29 Drug: NS 0.9% IV 1000 ml Route: IV; Rate: 75 ml/hr; Site: right antecubital; ld1 Medication: 16:20 VIS not applicable for this client. ld1 Outcome: 18:10 Discharge ordered by . tyra 18:11 Discharged to home ambulatory. ld1 18:11 Condition: stable 18:11 Discharge instructions given to patient, Instructed on discharge instructions, follow up and referral plans. Demonstrated understanding of instructions, follow-up care. 18:16 Patient left the ED. ld1 Signatures: Venita Hunter, TINWARE LITHOGRAPH PRESS OPERATOR-C TINWARE LITHOGRAPH PRESS OPERATOR-Csnw Sabas Driver PA PA cp Sims, Lauren, RN RN ld1
--- NOTE | 2023-03-04 18:10 | EDPHYS ---
Physician Documentation [facility] Name: Sharmaine Amaya Age: 73 yrs Sex: Female : 1950 Arrival Date: 03/04/2023 Time: 16:05 Bed 17 Private MD: ED Physician Sabas Licona HPI: 03/04 16:22 This 73 yrs old Female presents to ER via EMS with complaints of Heat Exposure. snw 16:22 pt went outdoors because she saw someone in her home. Wandered around in the heat for a snw long while. Got too hot.. Historical: - Allergies: 16:18 BACITRACIN; ld1 16:18 Bacitracin Zinc; ld1 16:18 benzalkonium chloride; ld1 16:18 Demerol; ld1 16:18 Gramicidin D; ld1 16:18 Iodinated Contrast Media - IV Dye; ld1 16:18 Morphine; ld1 16:18 Neomycin Sulfate; ld1 16:18 Polymyxin B Sulfate; ld1 16:18 triclosan; ld1 - PMHx: 16:18 Hallucinations; ld1 - PSHx: 16:18 None; ld1 - Immunization history:: Adult Immunizations up to date, Client reports receiving the 2nd dose of the Covid vaccine. - Social history:: Smoking status: Patient denies any tobacco usage or history of. Patient/guardian denies using alcohol. ROS: 16:21 Eyes: Negative for injury, pain, redness, and discharge, ENT: Negative for injury, snw pain, and discharge, Neck: Negative for injury, pain, and swelling, Cardiovascular: Negative for chest pain, palpitations, and edema, Respiratory: Negative for shortness of breath, cough, wheezing, and pleuritic chest pain, Abdomen/GI: Negative for abdominal pain, nausea, vomiting, diarrhea, and constipation, Back: Negative for injury and pain, : Negative for injury, bleeding, discharge, and swelling, MS/Extremity: Negative for injury and deformity, Skin: Negative for injury, rash, and discoloration, Neuro: Negative for headache, weakness, numbness, tingling, and seizure. 16:21 Constitutional: Positive for poor PO intake. 16:21 Psych: Positive for visual hallucinations. Exam: 16:19 Head/Face: Normocephalic, atraumatic. Eyes: Pupils equal round and reactive to light, snw extra-ocular motions intact. Lids and lashes normal. Conjunctiva and sclera are non-icteric and not injected. Cornea within normal limits. Periorbital areas with no swelling, redness, or edema. ENT: Nares patent. No nasal discharge, no septal abnormalities noted. Tympanic membranes are normal and external auditory canals are clear. Oropharynx with no redness, swelling, or masses, exudates, or evidence of obstruction, uvula midline. Mucous membranes moist. Neck: Trachea midline, no thyromegaly or masses palpated, and no cervical lymphadenopathy. Supple, full range of motion without nuchal rigidity, or vertebral point tenderness. No Meningismus. Chest/axilla: Normal chest wall appearance and motion. Nontender with no deformity. No lesions are appreciated. Cardiovascular: Regular rate and rhythm with a normal S1 and S2. No gallops, murmurs, or rubs. Normal PMI, no JVD. No pulse deficits. Respiratory: Lungs have equal breath sounds bilaterally, clear to auscultation and percussion. No rales, rhonchi or wheezes noted. No increased work of breathing, no retractions or nasal flaring. Abdomen/GI: Soft, non-tender, with normal bowel sounds. No distension or tympany. No guarding or rebound. No evidence of tenderness throughout. Back: No spinal tenderness. No costovertebral tenderness. Full range of motion. MS/ Extremity: Pulses equal, no cyanosis. Neurovascular intact. Full, normal range of motion. Neuro: Awake and alert, GCS 15, oriented to person, place, time, and situation. Cranial nerves II-XII grossly intact. Motor strength 5/5 in all extremities. Sensory grossly intact. Cerebellar exam normal. Normal gait. 16:19 Constitutional: The patient appears alert, hyperverbal 16:19 Skin: Appearance: hands and feet hyperemic. 16:19 Psych: Behavior/mood is anxious, hyperverbal. Delusions/hallucinations said to have had hallucinations at home so left her house and wandered around outside. Vital Signs: 16:17 BP 133 / 60; Pulse 91; Resp 18; Temp 98.8(O); Pulse Ox 96% on R/A; Weight 48.53 kg; ld1 Height 5 ft. 2 in. ; Pain 0/10; 18:10 BP 126 / 66; Pulse 88; Resp 18; Pulse Ox 99% on R/A; Pain 0/10; ld1 16:17 Body Mass Index 19.57 (48.53 kg, 157.48 cm) ld1 16:17 Pain Scale: Adult ld1 18:10 Pain Scale: Adult ld1 MDM: 16:19 Patient medically screened. snw 18:10 Differential Diagnosis heat exhaustion, medication reaction, toxic effect of snw substances. Data reviewed: vital signs, nurses notes, lab test result(s). Historians other than the Patient: EMS: [facility]. Counseling: I had a detailed discussion with the patient and/or guardian regarding: the historical points, exam findings, and any diagnostic results supporting the discharge/admit diagnosis, lab results, the need for outpatient follow up, for definitive care, to return to the emergency department if symptoms worsen or persist or if there are any questions or concerns that arise at home. Response to treatment: the patient's symptoms have markedly improved after treatment, post hydration per EMS. Special discussion: Based on the history and exam findings, there is no indication for further emergent testing or inpatient evaluation. I discussed with the patient/guardian the need to see the primary care provider for further evaluation of the symptoms. 03/04 16:18 Order name: CBC with Diff; Complete Time: 16:40 snw 03/04 16:18 Order name: CMP; Complete Time: 16:51 snw 03/04 16:18 Order name: IV Saline Lock; Complete Time: 16:21 snw 03/04 16:18 Order name: Labs collected and sent; Complete Time: 16:29 snw Administered Medications: 16:29 Drug: NS 0.9% IV 1000 ml Route: IV; Rate: 75 ml/hr; Site: right antecubital; ld1 Disposition Summary: 03/04/23 18:10 Discharge Ordered Location: Home snw Condition: Stable snw Diagnosis - Heat exhaustion, unspecified snw - Dehydration snw Followup: snw - With: Emergency Department - When: As needed - Reason: Worsening of condition Followup: snw - With: Private Physician - When: 2 - 3 days - Reason: Recheck today's complaints, Continuance of care, Re-evaluation by your physician Discharge Instructions: - Discharge Summary Sheet snw - Dehydration, Elderly snw - Heat Exhaustion snw - Rehydration, Elderly snw - Preventing Heat Exhaustion, Adult snw Forms: - Medication Reconciliation Form snw - Thank You Letter snw - Antibiotic Education snw - Prescription Opioid Use snw Signatures: Dispatcher [employer] EDVenita Cook, SYSTEMS INTEGRATION MANAGER-C SYSTEMS INTEGRATION MANAGER-Csnw Kate Shook RN RN ld1
[2023-03-04 18:24] VITALS: TEMP 98.8
[2023-03-04 18:26] VITALS: BP 126/66; O2SAT 99
== END 2023-03-04 18:16 | disposition home or self-care (01) ==
LOC: ER 16:05
DX: T67.5XXA Heat exhaustion, unspecified, initial encounter (principal); E86.0 Dehydration; Z88.1 Allergy status to other antibiotic agents; Z88.3 Allergy status to other anti-infective agents; Z88.5 Allergy status to narcotic agent; Z88.8 Allergy status to other drugs, medicaments and biological substances; Z91.041 Radiographic dye allergy status
CPT/HCPCS: 36415; 80053; 85025; 99285

== ENCOUNTER 2023-03-07 04:10 | Emergency (ER) | payer OTHER ==
--- OUTSIDE RECORDS SUMMARY | 2023-03-07 04:14 | XMS REPORT | Continuity of Care Document ---
:1950 Author Organization [facility] t Address [address] [place] [address] Care Team Providers Name Role Phone Pcp, Patient Does Not Have Primary Care Physician Unavailabl e SHAHNAZ CRISOSTOMO Attending Clinician Unavailable ARI COBURN Attending Clinician Unavailable Chad FERNANDEZ, Noble Attending Clinician Garrison FERNANDEZ, Yines T Attending Clinician Soraya FERNANDEZ, Perico P Attending Clinician Kulwant FERNANDEZ, Lottie Attending Clinician Bree FERNANDEZ, Tiffany A Attending Clinician [phone] NOBLE BONILLA Attending Clinician Unavailable Shahnaz Crisostomo MD Attending Clinician SHAHNAZ CRISOSTOMO Attending Clinician Unavailable SHAHNAZ CRISOSTOMO Admitting Clinician Unavailable Payers Payer Name Policy Type Policy Number Effective Date Expiration Date S ource HU[employer] FFS [id number] 2019 00:00:00 [employer] MEDICARE [id number] 2019 ADV 00:00:00 Problems Condition Condition Condition [...] 00 Center Closed Closed Disease Active Overview: [facility] displaced displaced 04-06 [facility] fracture [...] telephone Radiograp hs at next visit: none 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 substance or known or known physiologi physiologi petr petr condition condition Allergies, Adverse Reactions, Alerts Allergy Allergy Status Severity Reaction(s) Onset Inactive Treating Comm ents Source Name Type Date Date Clinician Latex Propensi Active Itching [facility] ty to 02-21 Health adverse 00:00: reaction 00 s to drug Shrimp Propensi Active Palpitations [facility] ty to 02-21 Health adverse 00:00: reaction 00 s to drug Cashew Propensi Active Hives [facility]: Medical reaction 00 Center s Mandarin Propensi Active [facility]ching [facility] adverse 00:[facility]: Medical reaction 00 Center s Pistachi Drug Active Hives [facility] Nut Allergy 04[facility] Center PISTACHI Allergy Active High Hives [facility] O NUT 04-08 00:00: 00 CASHEW Allergy Active High Hives [facility] NUT 04-08 00:00: 00 Cashew Propensi Active Hives 2020-0 [facility] Nut Oil ty to 04-08 [place] adverse 00:00: of reaction 00 Medicin s to e drug Iodinate Propensi Active Itching 2020-0 [facility] to 04-08 [place] Diagnost adverse 00:00: of ic reaction 00 Medicin Agents s to e drug Pistachi Propensi Active Hives 2020-0 [facility] o Nut ty to 04-08 [place] Extract adverse 00:00: of Skin reaction 00 Medicin Test s to e drug MANDARIN Allergy Active Itching 2020-0 [facility] ORANGE 04-08 00:00: 00 IODINE Allergy Active High Hives 2020-[address] [facility] SHRIMP Allergy Active High Hives 2020-[address] [facility] Center TRICLOSA Allergy Active High Hives 2020-[address] [facility] 00 Center OTHER Allergy Active 2020-[address] [facility] 00 Center POISON Allergy Active Other 1-[address] [facility] [address] QUYNH 7-27 [facility] EXTRACT 00:00: Medical 00 Center MEPERIDI Allergy Active Low Itching 1-[address] [facility] [facility] 00[facility] Medical 00 Center MORPHINE Allergy Active Low Rash 1-[address] [facility] 00[facility] 00 Center Shrimp Propensi Active Hives 1-[address] ty to 727 [facility] adverse 00:00: Medical reaction 00 Center s Triclosa Propensi Active Hives, 2020-[address] [facility] ty to Swelling 04-06 [facility] adverse 00:00: Medical reaction 00 Center s Meperidi Propensi Active Itching, 2020-[address] [facility] ne ty to Rash 27 [facility] adverse 00:00: Medical reaction 00 Center s Iodine Propensi Active Hives 1-[address] ty to 727 [facility] adverse 00:00: Medical reaction 00 Center s Morphine Propensi Active Rash 1-[address] ty to 7-27 [facility] adverse 00:00: Medical reaction 00 Center s Other Propensi Active 2020-[address] [facility] [facility] ty to 727 use any [facility] adverse 00:00: "fancy" Medical reaction 00 cream; Center s okay with plain petrolium jellyCann ot have neosporin and polyspori n but bacitraci n is okay Poison Propensi Active Other (See [facility] ty to Comments) 04-06 [facility] Extract adverse 00:00: Medical reaction 00 Center s Iodine Propensi Active Hives [facility] ty to 04-06 College adverse 00:00: of reaction 00 Medicin s to e drug Meperidi Propensi Active Rash [facility] ty to 04-06 College adverse 00:00: of reaction 00 Medicin s to e drug Morphine Propensi Active Rash [facility] ty to 04-06 College adverse 00:00: of reaction 00 Medicin s to e drug Poison Propensi Active Other [facility] ty to 04-06 reaction( College adverse 00:00: s): Other of reaction 00 (See Medicin s to Comments) e substanc e Shrimp Propensi Active Hives [facility] ty to 04-06 College adverse 00:00: of reaction 00 Medicin s to e food Triclosa Propensi Active Swelling [facility] ty to 04-06 [place] adverse 00:00: of reaction 00 Medicin s to e drug NO KNOWN Allergy Active MARGARET ALLERGJONEL S Social History Social Habit Start Date Stop Date Quantity Comments Source Gender identity [facility] alth Sexual orientation [facility] History [facility] ge Alcohol Std Drinks of Med icine History [facility] ge Alcohol Binge of Medicine History [facility] ge Alcohol Comment of Medici ne Exposure to 2023-02-11 2023-02-21 Not sure [facility] SARS-CoV-2 (event) 00:00:00 05:50:00 History of Social 2023-02-21 2023-02-21 [facility] function 00:00:00 00:00:00 History [facility] 2021-12-06 2021-12-06 1 [facility] ge Alcohol Frequency 00:00:00 00:00:00 of Medi cine Alcohol intake 2021-04-08 2021-04-08 Ex-drinker [facility] 00:00:00 00:00:00 (finding) [facility] Tobacco use and 2021-04-06 2021-04-06 Smokeless tobacco [facility] exposure 00:00:00 00:00:00 non-user of Medicine Sex Ass[birth year] At [birth year] [facility] 00:00:00 [facility]:00 [facility] Smoking Status Start Date Stop Date Source Never smoked tobacco [facility] Medications Ordered Filled Start Stop [...] I St -acetaminop 7-30 tablet by Isreal es hen (NORCO 23:08: mouth Medica l 10-325) 16 every 6 Center 10-325 mg (six) per tablet hours as needed for Pain. aspirin 81 Yes 81mg QD Take [address] [facility] EC 7-30 by mouth [facility] tablet 23:08: daily. [address] BIOTIN ORAL 0 Yes QD Take by [facility] 23:08: daily. [address] ZINC ORAL 0 Yes QD Take by [facility] 23:08: daily. [address] HYDROcodone 0 Yes 1{tbl} Take [address] -acetaminop 7-30 tablet by [facility]real [facility] hen (NORCO 23:08: mouth Medica l 10-325) 16 every 6 Center 10-325 mg (six) per tablet hours as needed for Pain. aspirin 81 Yes 81mg QD Take [address] MG EC 7-30 by mouth [facility] tablet 23:08: daily. [address] BIOTIN ORAL 2020-0 Yes QD Take by [facility] 23:08: daily. [address] ZINC ORAL 0 Yes QD Take by [facility] 23:08: daily. [address] gabapentin Yes 300mg Take 1 [facility] [...] [facility] -acetaminop 7-26 tablets by Co manolo ricci ([facility]) 00:00: mouth of 10-325 MG 00 every 4-6 Medic in per tablet hours as e needed. Right tibial plateau fracture hydrocodone Yes Take 1 [facility] -acetaminop 7-26 tablets by [employer] manolo ricci ([facility]) 00:00: mouth of 10-325 MG 00 every 4-6 Medic in per tablet hours as e needed. Right tibial plateau fracture hydrocodone Yes Take 1 [facility] -acetaminop 7-26 tablets by [employer] [place] [employer]eduard ricci ([employer]) 00:00: mouth of 10-325 MG 00 every 4-6 Medic in per tablet hours as e needed. Right tibial plateau fracture hydrocodone Yes Take 1 [facility] -acetaminop 7-26 tablets by Co manolo ricci ([facility]) 00:00: mouth of 10-325 MG 00 every 4-6 Medic in per tablet hours as e needed. Right tibial plateau fracture ibuprofen Yes TAKE 1 [facility] (MOTRIN) 7-14 TABLET BY Colleg e 600 MG 00:00: MOUTH of tablet 00 EVERY 6 Medicin HOURS WITH e FOOD NEEDED FOR PAIN tramadol Yes TAKE 1 [facility] (ULTRAM) 50 7-14 TABLET BY Col lege MG tablet 00:00: MOUTH of 00 EVERY 6 Medicin HOURS e NEEDED ibuprofen Yes TAKE 1 [facility] (MOTRIN) 7-14 TABLET BY [facility] e 600 MG 00:00: MOUTH of tablet 00 EVERY 6 Medicin HOURS WITH e FOOD NEEDED FOR PAIN tramadol Yes TAKE 1 [facility] (ULTRAM) 50 7-14 TABLET BY Col lege MG tablet 00:00: MOUTH of 00 EVERY 6 Medicin HOURS e NEEDED ibuprofen Yes TAKE 1 [facility] (MOTRIN) 7-14 TABLET BY [facility] e 600 MG 00:00: MOUTH of tablet 00 EVERY 6 Medicin HOURS WITH e FOOD NEEDED FOR PAIN tramadol Yes TAKE 1 [facility] (ULTRAM) 50 7-14 TABLET BY Col lege [...] kg Systolic blood 2023-02-22 14:35:00 145 mm[Hg] [facility] pressure Diastolic blood 2023-02-22 14:35:00 76 mm[Hg] [facility] pressure Heart rate 2023-02-22 14:35:00 80 /min [facility] Body temperature 2023-02-22 14:35:00 36.78 [facility] Respiratory rate 2023-02-22 14:35:00 18 /min [facility] Oxygen saturation in 2023-02-22 14:35:00 98 /min [facility] Arterial blood by Pulse oximetry Body height 2023-02-21 06:05:00 157.5 cm [facility] Body weight 2023-02-21 06:05:00 53.071 kg [facility] BMI 2023-02-21 06:05:00 21.40 kg/m2 [facility] Body height 2021-12-06 18:45:00 170[facility] Body weight 2021-12-06 18:45:00 55.792 kg [facility] BMI 2021-12-06 18:45:00 19.26 kg/m2 [facility] HEIGHT 2021-04-07 21:25:00 170.2 cm WEIGHT 2021-04-07 21:25:00 55.929 kg HEIGHT 2021-04-07 07:50:00 170.2 cm WEIGHT 2021-04-07 07:50:00 58.968 kg HEIGHT 2021-04-06 15:00:00 170.2 cm WEIGHT 2021-04-06 15:00:00 58.968 kg Systolic blood 2023-02-22 14:35:00 145 mm[Hg] [facility] pressure Diastolic blood 2023-02-22 14:35:00 76 mm[Hg] [facility] pressure Heart rate 2023-02-22 14:35:00 80 /min [facility] Body temperature 2023-02-22 14:35:00 36.78 [facility] Respiratory rate 2023-02-22 14:35:00 18 /min [facility] Oxygen saturation in 2023-02-22 14:35:00 98 /min [facility] Arterial blood by Pulse oximetry BMI 2023-02-21 06:05:00 21.40 kg/m2 [facility] Body height 2023-02-21 06:05:00 157.5 cm [facility] Body weight 2023-02-21 06:05:00 53.071 kg [facility] Procedures Procedure Date / Time Performed Performing Clinician [facility] e URINE DRUG SCREEN 2023-02-22 02:10:00 Noble Bonilla [facility] URINALYSIS W/REFLEX TO 2023-02-22 02:10:[address] [facility] URINE CULTURE URINALYSIS 2023-02-22 02:10:00 Noble Bonilla [facility] URINE CULTURE COLLECTION 2023-02-22 02:10:00 Noble Bonilla [facility] KIT URINE DRUG SCREEN 2023-02-22 02:10:00 Noble Bonilla [facility] URINALYSIS W/REFLEX TO 2023-02-22 02:10:[address] [facility] URINE CULTURE URINALYSIS 2023-02-22 02:10:00 Noble Bonilla [facility] URINE CULTURE COLLECTION 2023-02-22 02:10:00 Noble Bonilla [facility] KIT CONSULT CLINICAL CASE 2023-02-21 14:25:23 [facility] (RN/SW) A CONSULT CLINICAL CASE 2023-02-21 14:25:23 [facility] (RN/SW) A CT HEAD W/O CONTRAST 2023-02-21 10:01:32 Noble Bonilla [facility] CT HEAD W/O CONTRAST 2023-02-21 10:01:32 Noble Bonilla [facility] CBC/DIFF 2023-02-21 08:21:00 Noble Bonilla [facility] BASIC METABOLIC PANEL 2023-02-21 08:21:00 [facility]illa [facility] CBC 2023-02-21 08:21:00 Noble Bonilla [facility] BASIC METABOLIC PANEL 2023-02-21 08:21:00 Noble Bonilla [facility] CBC/DIFF 2023-02-21 08:21:00 Noble Bonilla [facility] CBC 2023-02-21 08:21:00 Noble Bonilla [facility] Plan of Care Planned Activity Planned Date Details Comments Source Future Scheduled 2023-06-11 I[facility] Influenza [facility] 00:[facility]:00 Seasonal (>/= 19 yrs) [code = IMM Influenza Seasonal (>/= 19 yrs)] Future Scheduled 2023-05-[address] [facility] Test 00:00:00 (Season Ended) [code Medical Center = Influenza Vaccine (Season Ended)] Future Scheduled 2023-05-[address] [facility] Test 00:00:00 (Season Ended) [code Medical Center = Influenza Vaccine (Season Ended)] Future Scheduled 2022-09-[address] [facility] Test 00:00:00 (12+) [code = Medical Center DEPRESSION SCREENING (12+)] Future Scheduled 2022-09-11 FALLS RISK SCREENING [facility] Test 00:00:00 [code = FALLS RISK Medical C enter SCREENING] Future Scheduled 2022-09-[address] [...] Cessation Counseling and Screening (12+)] Future Scheduled 2022-04-[address] [facility] Test 00:00:00 Counseling and Medical Cente r Screening (12+) [code = Tobacco Cessation Counseling and Screening (12+)] Future Scheduled 2021-12-06 ZOSTER VACCINE (1 of [employer] Test 14:27:22 2) [code = ZOSTER of Medicin e VACCINE (1 of 2)] Future Scheduled 2021-12-06 Screening for [facility] Col lege Test 14:27:22 osteoporosis of Medicine (procedure) [code = 030958313] Future Scheduled 2021-12-06 Pneumococcal 65+ (1 [facility] Test 14:27:22 of 1 - PPSV23) [code of Medi cine = Pneumococcal 65+ (1 of 1 - PPSV23)] Future Scheduled 2021-12-06 MEDICARE AWV [facility] Test 14:27:22 (Initial) [code = of Medicin e MEDICARE AWV (Initial)] Future Scheduled 2021-12-06 FLU VACCINE > 6 Postponed from [facility] Test 14:27:22 MONTHS [code = FLU 04/11/2021 of Medici ne VACCINE > 6 MONTHS] (Postpone Reason: Patient declined today) Future Scheduled 2021-12-06 FALL SCREEN [code = [facility] Test 14:27:22 FALL SCREEN] of Medicine Future Scheduled 2021-12-06 Screening for [facility] Col [facility]ge Test 14:27:22 malignant neoplasm of of Med icine colon (procedure) [code = 741018921] Future Scheduled 2021-12-06 Screening for [facility] Col [facility]ge Test 14:27:22 malignant neoplasm of of Med icine breast (procedure) [code = 032209801] Future Scheduled 2021-12-06 COVID-19 Vaccine (1) [employer] Test 14:27:22 [code = COVID-19 of Medicine Vaccine (1)] Future Scheduled 2021-12-06 TETANUS SHOT (ADULT) [employer] Test 14:27:22 [code = TETANUS SHOT of Medi cine (ADULT)] Future Scheduled 2021-12-06 Hepatitis C screening [employer] Test 14:27:22 (procedure) [code = of Medic ine 139474514] Future Scheduled 2021-12-06 ORT - XR ANKLE RIGHT Ordered: [employer] Test 13:47:40 3V (CHARGE ONLY) 12/06/2021 of Medicine [code = 45880] Future Scheduled 2021-12-06 ORT - XR FOOT RIGHT 3 Ordered: [employer] Test 13:47:40 V (CHARGE ONLY) [code 12/06/2021 of Med icine = 19337] Future Scheduled 2021-06-28 Screening for [facility] Test 22:21:39 malignant neoplasm of of Med icine colon (procedure) [code = 068837283] Future Scheduled 2021-06-28 Screening for [facility] Col [facility]ge Test 22:21:39 malignant neoplasm of of Med icine breast (procedure) [code = 666900498] Future Scheduled 2021-06-28 COVID-19 Vaccine (1) [employer] Test 22:21:39 [code = COVID-19 of Medicine Vaccine (1)] Future Scheduled 2021-06-28 TETANUS SHOT (ADULT) [employer] Test 22:21:39 [code = TETANUS SHOT of Medi cine (ADULT)] Future Scheduled 2021-06-28 Hepatitis C screening [employer] Test 22:21:39 (procedure) [code = of Medic ine 469921108] Future Scheduled 2021-06-28 ZOSTER VACCINE (1 of [employer] Test 22:21:39 2) [code = ZOSTER of Medicin e VACCINE (1 of 2)] Future Scheduled 2021-06-28 Screening for [facility] Test 22:21:39 osteoporosis of Medicine (procedure) [code = 808778260] Future Scheduled 2021-06-28 PNEUMOVAX >=65 [facility] Test 22:21:39 (PPSV23) [code = of Medicine PNEUMOVAX >=65 (PPSV23)] Future Scheduled 2021-06-28 MEDICARE AWV [facility] Ro ege Test 22:21:39 (Initial) [code = of Medicin e MEDICARE AWV (Initial)] Future Scheduled 2021-06-28 FLU VACCINE > 6 [facility] C [facility]lege Test 22:21:39 MONTHS [code = FLU of Medici ne VACCINE > 6 MONTHS] Future Scheduled 2021-06-28 FALL SCREEN [code = [facility] [employer] Test 22:21:39 FALL SCREEN] of Medicine Future Scheduled 2021-06-21 Screening for [facility] Test 22:32:31 malignant neoplasm of of Med icine colon (procedure) [code = 791246977] Future Scheduled 2021-06-21 Screening for [facility] Test 22:32:31 malignant neoplasm of of Med icine breast (procedure) [code = 605242040] Future Scheduled 2021-06-21 COVID-19 Vaccine (1) [employer] Test 22:32:31 [code = COVID-19 of Medicine Vaccine (1)] Future Scheduled 2021-06-21 TETANUS SHOT (ADULT) [employer] Test 22:32:31 [code = TETANUS SHOT of Medi cine (ADULT)] Future Scheduled 2021-06-21 Hepatitis C screening [facility] Test 22:32:31 (procedure) [code = of Medic ine 632733615] Future Scheduled 2021-06-21 ZOSTER VACCINE (1 of [employer] Test 22:32:31 2) [code = ZOSTER of Medicin e VACCINE (1 of 2)] Future Scheduled 2021-06-21 Screening for [facility] Test 22:32:31 osteoporosis of Medicine (procedure) [code = 872345662] Future Scheduled 2021-06-21 PNEUMOVAX >=65 [facility] Test 22:32:31 (PPSV23) [code = of Medicine PNEUMOVAX >=65 (PPSV23)] Future Scheduled 2021-06-21 MEDICARE AWV [facility] Ro [facility]ge Test 22:32:31 (Initial) [code = of Medicin e MEDICARE AWV (Initial)] Future Scheduled 2021-06-21 FLU VACCINE > 6 [facility] C [facility]lege Test 22:32:31 MONTHS [code = FLU of Medici ne VACCINE > 6 MONTHS] Future Scheduled 2021-06-21 FALL SCREEN [code = [facility] [employer] Test 22:32:31 FALL SCREEN] of Medicine Future Scheduled 2021-06-21 ORT - XR KNEE RIGHT Ordered: [facility] [employer] Test 16:13:03 3V (CHARGE ONLY) 06/21/2021 of Medicine [code = 75569] Future Scheduled 2021-04-06 Screening for [facility] Test 08:08:52 malignant neoplasm of of Med icine colon (procedure) [code = 207232254] Future Scheduled 2021-04-06 Screening for [facility] Test 08:08:52 malignant neoplasm of of Med icine breast (procedure) [code = 580463642] Future Scheduled 2021-04-06 COVID-19 Vaccine (1) [employer] Test 08:08:52 [code = COVID-19 of Medicine Vaccine (1)] Future Scheduled 2021-04-06 TETANUS SHOT (ADULT) [employer] Test 08:08:52 [code = TETANUS SHOT of Medi cine (ADULT)] Future Scheduled 2021-04-06 Hepatitis C screening [facility] Test 08:08:52 (procedure) [code = of Medic ine 224914138] Future Scheduled 2021-04-06 ZOSTER VACCINE (1 of [employer] Test 08:08:52 2) [code = ZOSTER of Medicin e VACCINE (1 of 2)] Future Scheduled 2021-04-06 FALL SCREEN [code = [facility] [employer] Test 08:08:52 FALL SCREEN] of Medicine Future Scheduled 2021-04-06 Screening for [facility]ge Test 08:08:52 osteoporosis of Medicine (procedure) [code = 524131291] Future Scheduled 2021-04-06 PNEUMOVAX >=65 [facility] Test 08:08:52 (PPSV23) [code = of Medicine PNEUMOVAX >=65 (PPSV23)] Future Scheduled 2021-04-06 MEDICARE AWV [facility] Ro [facility]ge Test 08:08:52 (Initial) [code = of Medicin e MEDICARE AWV (Initial)] Future Scheduled 2021-04-06 FLU VACCINE > 6 [facility] C [facility] Test 08:08:52 MONTHS [code = FLU of Medici ne VACCINE > 6 MONTHS] Future Scheduled 2020-09-[address] [facility] Test 00:00:00 WELLNESS (YEAR 2 or Medical Center FIRST YEAR if no IPPE) [code = MEDICARE ANNUAL WELLNESS (YEAR 2 or FIRST YEAR if no IPPE)] Future Scheduled 2020-09-[address] [facility] Test 00:00:00 WELLNESS (YEAR 2 or Medical Center FIRST YEAR if no IPPE) [code = MEDICARE ANNUAL WELLNESS (YEAR 2 or FIRST YEAR if no IPPE)] Future Scheduled 2014 Imm Pneumococcal 65+ [facility] 00:00:00 (1 - PCV) [code = Imm Pneumococcal 65+ (1 - PCV)] Future Scheduled 2014 PNEUMOCOCCAL 65+ YRS [facility] Test 00:00:00 (1 - PCV) [code = Medical Ce nter PNEUMOCOCCAL 65+ YRS (1 - PCV)] Future Scheduled 2014 PNEUMOCOCCAL 65+ YRS [facility] Test 00:00:00 (1 - PCV) [code = Medical Ce nter PNEUMOCOCCAL 65+ YRS (1 - PCV)] Future Scheduled 1999 [facility] 00:[facility]:00 malignant neoplasm of colon (procedure) [code = 833903271] Future Scheduled 1999 SHINGLES VACCINES ([address] [facility] Test 00:00:00 of 2) [code = Medical Center SHINGLES VACCINES (1 of 2)] Future Scheduled 1999 SHINGLES VACCINES ([address] [facility] Test 00:00:00 of 2) [code = Medical Center SHINGLES VACCINES (1 of 2)] Future Scheduled 1989 Breast Cancer Scrn [facility] Test 00:00:00 (Yearly) [code = Breast Cancer Scrn (Yearly)] Future Scheduled 1968-02-07 DTAP/TDAP/TD [facility]ACCINES [facility] Test 00:00:00 (1 - Tdap) [code = Medical C enter DTAP/TDAP/TD VACCINES (1 - Tdap)] Future Scheduled 1968-02-07 DTAP/TDAP/TD VACCINES [facility] Test 00:00:00 (1 - Tdap) [code = Medical C enter DTAP/TDAP/TD VACCINES (1 - Tdap)] Future Scheduled 1967 HEPATITIS C SCRE[facility]ING [facility] Test 00:00:00 [code = HEPATITIS C Medical Center SCREENING] Future Scheduled 1967 HEPATITIS C [facility]CRE[facility] Test 00:00:00 [code = HEPATITIS C Medical Center SCREENING] Future Scheduled 1950 COVID-19 Vaccine (#1) [facility] 00:[facility]:00 [code = COVID-19 Vaccine (#1)] Future Scheduled 1950 COVID-19 VACCINE (#1) [facility] 00:00:00 [code = COVID-[address] VACCINE (#1)] Future Scheduled 1950 COVID-19 VACCINE (#1) [facility] Test 00:00:00 [code = COVID-[address] VACCINE (#1)] Future Scheduled [address] [facility] [facility] Test 00:00:00 malignant neoplasm of Medica l Center breast (procedure) [code = 169608025] Future Scheduled [address] [facility] Test 00:00:00 (combo) [code = CT Medical C enter Colonography (combo)] Future Scheduled [address] [facility] Test 00:00:00 malignant neoplasm of Medica l Center colon (procedure) [code = 245130576] Future Scheduled [address] [facility] Test 00:00:00 malignant neoplasm of Medica l Center colon (procedure) [code = 517723060] Future Scheduled 1950 DXA SCAN [code = DXA [facility] Test 00:00:00 SCAN] [facility] Future Scheduled [address] [facility] Test 00:00:00 malignant neoplasm of Medica l Center colon (procedure) [code = 819242996] Future Scheduled [address] [facility] Test 00:00:00 malignant neoplasm of Medica l Center colon (procedure) [code = 182406652] Future Scheduled 1950 Sigmoidoscopy [code = [facility] Future Scheduled [address] [facility] Test 00:00:00 malignant neoplasm of Medica l Center breast (procedure) [code = 048848439] Future Scheduled [address] [facility] Test 00:00:00 (combo) [code = CT Medical C enter Colonography (combo)] Future Scheduled [address] [facility] Test 00:00:00 malignant neoplasm of Medica l Center colon (procedure) [code = 574652902] Future Scheduled [address] [facility] Test 00:00:00 malignant neoplasm of Medica l Center colon (procedure) [code = 575596532] Future Scheduled 1949 DXA SCAN [code = DXA [facility] Test 00:00:00 SCAN] [facility] Future Scheduled [address] [facility] Test 00:00:00 malignant neoplasm of Medica l Center colon (procedure) [code = 614991028] Future Scheduled [address] [facility] Test 00:00:00 [facility] colon (procedure) [code = 360630781] Future Scheduled 1950 Sigmoidoscopy [code = [facility] 00:[facility]:00 S[facility]oscopy] [facility] Encounters Start End Encounter Admission Attending Care Care Encounter Source Date/Time Date/Time Type Type Clinicians Facility Department ID 2021-06-20 Outpatient CRISOSTOMO, [facility] Surgery [id number] [facility] 06:18:23 [facility] 2023-04-03 2023-04-03 Outpatient [facility] [id number] [place] 00:00:00 00:00:00 Critical access hospital 2023-02-21 2023-02-22 Emergency Noble Bonilla [id number] .[id number] [place] 06:07:00 15:25:00 Riddhi Ji GENERAL 350.1.13.43 [facility] .2.7.2.6869 Lottie Blum [id number] Tiffany Giron 2023-02-21 2023-02-21 Emergency [facility] [id number] [place] 09:18:00 10:01:38 [facility] 2023-02-21 2023-02-21 Emergency [facility] [id number] [place] 00:00:00 00:00:00 [facility] 2023-02-21 2023-02-21 Emergency CHAD [facility] [id number] [place] 00:00:00 00:00:00 , NOBLE cortes 2021-12-06 2021-12-06 Office MIKE Crisostomo [id number] [facility] 14:50:00 15:35:46 Visit Shahnaz Mckenzie AMBULATOR 350.1.13.21 College Y 0.2.7.2.686 of [id number] Medi dharmesh 600 e 2021-12-06 2021-12-06 Outpatient [facility] [id number] [facility] 13:50:07 13:50:07 [facility] 2021-06-28 2021-06-28 Office MIKE CRISOSTOMO [id number] [facility] 15:24:40 16:39:54 Visit SHAHNAZ AMBULATOR 350.1.13.21 College Y 0.2.7.2.686 of [id number] Medi dharmesh 600 e 2021-06-21 2021-06-22 Office MIKE CRISOSTOMO 1.2.840.114 [id number] [facility] 15:10:04 07:51:31 Visit SHAHNAZ AMBULATOR 350.1.13.21 College Y 0.2.7.2.686 of [id number] Medi dharmesh 600 e 2021-06-21 2021-06-21 Outpatient [facility] [id number] [facility] 16:14:19 16:14:19 [facility] 2021-04-26 2021-04-26 Outpatient MIKE CRISOSTOMO [facility] [id number] [facility] 16:19:58 16:19:58 SHAHNAZ [facility] [employer] [employer] 2021-04-07 2021-04-07 Outpatient [facility] [id number] [facility] 07:07:00 23:59:00 [facility] 2021-04-07 2021-04-07 Outpatient [facility] [id number] [facility] 00:00:00 07:06:00 [facility] 2021-04-05 2021-04-06 Office MIKE CRISOSTOMO [id number] [facility] 15:58:40 07:54:27 Visit SHAHNAZ AMBULATOR 350.1.13.21 College Y 0.2.7.2.686 of [id number] [facility] 600 e 2021-04-06 2021-04-06 Outpatient [facility] [id number] [facility] 00:00:00 00:00:00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
--- NOTE | 2023-03-07 04:38 | ER ---
Nurse's Notes [facility] Name: Sharmaine Amaya Age: 73 yrs Sex: Female : 1950 Arrival Date: 03/07/2023 Time: 04:10 Bed 6 Private MD: Diagnosis: Bipolar disorder, unspecified Presentation: 03/07 04:21 Chief complaint: Patient states: my feet hurt I have been standing on them for 3 hours kl outside of my house because I am afraid to go in my house my fijulio Higuera is in halfway in [place]. Coronavirus screen: Vaccine status: Patient reports receiving the 2nd dose of the covid vaccine. Ebola Screen: Patient negative for fever greater than or equal to 101.5 degrees Fahrenheit, and additional compatible Ebola Virus Disease symptoms. Initial Sepsis Screen: Does the patient meet any 2 criteria? No. Patient's initial sepsis screen is negative. Does the patient have a suspected source of infection? No. Patient's initial sepsis screen is negative. Risk Assessment: Do you want to hurt yourself or someone else? Patient reports no desire to harm self or others. 04:21 Method Of Arrival: EMS: [facility] 04:21 Acuity: YOKO 5 kl Triage Assessment: 04:23 General: Appears in no apparent distress. Behavior is calm, cooperative. Pain: kl Complains of pain in right foot and left foot Pain currently is 7 out of 10 on a pain scale. Historical: - Allergies: 04:23 BACITRACIN; kl 04:23 Bacitracin Zinc; kl 04:23 benzalkonium chloride; kl 04:23 Demerol; kl 04:23 Gramicidin D; kl 04:23 Iodinated Contrast Media - IV Dye; kl 04:23 Morphine; kl 04:23 Neomycin Sulfate; kl 04:23 Polymyxin B Sulfate; kl 04:23 triclosan; kl - PMHx: 04:23 Hallucinations; kl - Immunization history:: Adult Immunizations not immunized. - Social history:: Smoking status: Patient denies any tobacco usage or history of. - Family history:: not pertinent. Screenin:09 [facility] ED Fall Risk Assessment (Adult) History of falling in the last 3 months, jb4 including since admission No falls in past 3 months (0 pts) Confusion or Disorientation No (0 pts) Score/Fall Risk Level 0 - 2 = Low Risk Oriented to surroundings, Maintained a safe environment. Abuse screen: Denies threats or abuse. Nutritional screening: No deficits noted. Tuberculosis screening: No symptoms or risk factors identified. Assessment: 04:35 Reassessment: Pt currently refusing blood work. jb4 Vital Signs: 04:21 BP 137 / 69; Pulse 72; Resp 18; Temp 98.1(O); Pulse Ox 100% on R/A; Weight 41.73 kg; kl Height 5 ft. 3 in. ; Pain 7/10; 04:21 Body Mass Index 16.30 (41.73 kg, 160.02 cm) 04:21 Pain Scale: Adult ED Course: 04:17 Patient arrived in ED. ja2 04:18 Sabas Licona MD is Attending Physician. [facility] 04:23 Triage completed. 04:37 Jeffy Baca MD is Referral Physician. [facility] 05:09 Patient has correct armband on for positive identification. Bed in low position. Call jb4 light in reach. Side rails up X 1. 05:09 No provider procedures requiring assistance completed. Patient did not have IV access jb4 during this emergency room visit. Administered Medications: 04:39 Not Given (Patient Refused): NS 0.9% IV 500 ml IV at bolus once jb4 Medication: 05:09 VIS not applicable for this client. jb4 Outcome: 04:37 Discharge ordered by . [facility] 05:08 Discharged to home ambulatory. jb4 05:08 Condition: stable 05:08 Discharge instructions given to patient, Instructed on discharge instructions, follow up and referral plans. Demonstrated understanding of instructions, follow-up care. 05:09 Patient left the ED. jb4 Signatures: Emily Cordero, RN RN Sabas Phillip MD MD cha Bryson, James, RN RN jb4 Alexander, Jessica ja2
--- NOTE | 2023-03-07 04:38 | EDPHYS ---
Physician Documentation [facility] Name: Sharmaine Amaya Age: 73 yrs Sex: Female : 1950 Arrival Date: 03/07/2023 Time: 04:10 Bed 6 Private MD: ED Physician Sabas Licona HPI: 03/07 04:19 This 73 yrs old Female presents to ER via Unassigned with complaints of jessica standing on corner for 3 hrs. 04:19 The patient presents to the emergency department with anxiety, paranoia. Onset: The jessica symptoms/episode began/occurred today, yesterday. Past psychiatric history: Prior diagnosis: no previous psychiatric diagnosis known. Associated signs and symptoms: The patient has no apparent associated signs or symptoms. Severity of symptoms: At their worst the symptoms were mild in the emergency department the symptoms are unchanged. The patient has not experienced similar symptoms in the past. Historical: - Allergies: 04:23 BACITRACIN; kl 04:23 Bacitracin Zinc; kl 04:23 benzalkonium chloride; kl 04:23 Demerol; kl 04:23 Gramicidin D; kl 04:23 Iodinated Contrast Media - IV Dye; kl 04:23 Morphine; kl 04:23 Neomycin Sulfate; kl 04:23 Polymyxin B Sulfate; kl 04:23 triclosan; kl - PMHx: 04:23 Hallucinations; kl - Immunization history:: Adult Immunizations not immunized. - Social history:: Smoking status: Patient denies any tobacco usage or history of. - Family history:: not pertinent. ROS: 04:19 Constitutional: Negative for fever, chills, and weight loss, Eyes: Negative for injury, jessica pain, redness, and discharge, ENT: Negative for injury, pain, and discharge, Neck: Negative for injury, pain, and swelling, Cardiovascular: Negative for chest pain, palpitations, and edema, Respiratory: Negative for shortness of breath, cough, wheezing, and pleuritic chest pain, Abdomen/GI: Negative for abdominal pain, nausea, vomiting, diarrhea, and constipation, Back: Negative for injury and pain, : Negative for injury, bleeding, discharge, and swelling, MS/Extremity: Negative for injury and deformity, Skin: Negative for injury, rash, and discoloration, Neuro: Negative for headache, weakness, numbness, tingling, and seizure, Allergy/Immunology: Negative for hives, rash, and allergies, Endocrine: Negative for neck swelling, polydipsia, polyuria, polyphagia, and marked weight changes, Hematologic/Lymphatic: Negative for swollen nodes, abnormal bleeding, and unusual bruising. 04:19 Psych: Positive for anxiety. Exam: 04:19 Constitutional: This is a well developed, well nourished patient who is awake, alert, jessica and in no acute distress. Head/Face: Normocephalic, atraumatic. Eyes: Pupils equal round and reactive to light, extra-ocular motions intact. Lids and lashes normal. Conjunctiva and sclera are non-icteric and not injected. Cornea within normal limits. Periorbital areas with no swelling, redness, or edema. ENT: Nares patent. No nasal discharge, no septal abnormalities noted. Tympanic membranes are normal and external auditory canals are clear. Oropharynx with no redness, swelling, or masses, exudates, or evidence of obstruction, uvula midline. Mucous membranes moist. Neck: Trachea midline, no thyromegaly or masses palpated, and no cervical lymphadenopathy. Supple, full range of motion without nuchal rigidity, or vertebral point tenderness. No Meningismus. Chest/axilla: Normal chest wall appearance and motion. Nontender with no deformity. No lesions are appreciated. Cardiovascular: Regular rate and rhythm with a normal S1 and S2. No gallops, murmurs, or rubs. Normal PMI, no JVD. No pulse deficits. Respiratory: Lungs have equal breath sounds bilaterally, clear to auscultation and percussion. No rales, rhonchi or wheezes noted. No increased work of breathing, no retractions or nasal flaring. Abdomen/GI: Soft, non-tender, with normal bowel sounds. No distension or tympany. No guarding or rebound. No evidence of tenderness throughout. Back: No spinal tenderness. No costovertebral tenderness. Full range of motion. Female : Normal external genitalia. Skin: Warm, dry with normal turgor. Normal color with no rashes, no lesions, and no evidence of cellulitis. MS/ Extremity: Pulses equal, no cyanosis. Neurovascular intact. Full, normal range of motion. Neuro: Awake and alert, GCS 15, oriented to person, place, time, and situation. Cranial nerves II-XII grossly intact. Motor strength 5/5 in all extremities. Sensory grossly intact. Cerebellar exam normal. Normal gait. Psych: Awake, alert, with orientation to person, place and time. Behavior, mood, and affect are within normal limits. Vital Signs: 04:21 BP 137 / 69; Pulse 72; Resp 18; Temp 98.1(O); Pulse Ox 100% on R/A; Weight 41.73 kg; kl Height 5 ft. 3 in. ; Pain 7/10; 04:21 Body Mass Index 16.30 (41.73 kg, 160.02 cm) 04:21 Pain Scale: Adult kl MDM: 04:18 Patient medically screened. jessica 04:21 Differential diagnosis: acute psychotic break, depression, psychosis secondary to jessica non-compliance. Data reviewed: vital signs, nurses notes. Consideration of Admission/Observation Escalation of care including admission/observation considered. I considered the following discharge prescriptions or medication management in the emergency department Medications were administered in the Emergency Department. See MAR. Test considered but Not performed: CT: no ct head. Historians other than the Patient: EMS: ems see report. Care significantly affected by the following chronic conditions: no hx. Counseling: I had a detailed discussion with the patient and/or guardian regarding: the historical points, exam findings, and any diagnostic results supporting the discharge/admit diagnosis, the need for outpatient follow up, for definitive care, a family practitioner, a psychiatrist. 03/07 04:25 Order name: EKG; Complete Time: 04:26 jessica Administered Medications: 04:39 Not Given (Patient Refused): NS 0.9% IV 500 ml IV at bolus once [email or web address] Disposition Summary: 03/07/23 04:37 Discharge Ordered Location: Home jessica Problem: new jessica Symptoms: have improved jessica Condition: Stable jessica Diagnosis - Bipolar disorder, unspecified jessica Followup: jessica - With: Private Physician - When: 2 - 3 days - Reason: Recheck today's complaints, Continuance of care, Re-evaluation by your physician Followup: jessica - With: - When: 2 - 3 days - Reason: Recheck today's complaints, Re-evaluation by your physician Discharge Instructions: - Discharge Summary Sheet jessica - Nesha jessica - Mixed Bipolar Disorder jessica - Supporting Someone With Bipolar Disorder jessica Forms: - Medication Reconciliation Form jessica - Thank You Letter jessica - Antibiotic Education jessica - Prescription Opioid Use jessica - [email or web address] [facility] Signatures: Dispatcher [employer] EDMS Emily Cordero RN RN kl Anderson, Corey, MD MD cha Bryson, James RN jb4 Corrections: (The following items were deleted from the chart) 04:39 04:25 EKG - Nurse/Tech ordered. [facility] jb4 04:39 04:25 IV Saline Lock ordered. [facility]4 :39 04:25 Labs collected and sent ordered. [place] [id number] :39 04:25 Suicide Screening ([place]) ordered. [facility] jb4 05:00 04:26 PROTIME (+INR)+COAG.LAB.BRZ ordered. EDMS EDMS 05:00 04:26 PTT, ACTIVATED+COAG.LAB.BRZ ordered. EDMS EDMS 05:00 04:26 SALICYLATE+C.LAB.BRZ ordered. EDMS EDMS 05:00 04:26 Urinalysis+U.LAB.BRZ ordered. EDMS EDMS 05:00 04:26 URINE DRUG SCREEN+UC.LAB.BRZ ordered. EDMS EDMS 05:01 04:26 ETHANOL+C.LAB.BRZ ordered. EDMS EDMS 05:02 04:26 ACETAMINOPHEN+C.LAB.BRZ ordered. EDMS EDMS 05:02 04:26 BASIC METABOLIC PANEL+C.LAB.BRZ ordered. EDMS EDMS 05:02 04:26 CBC+H.LAB.BRZ ordered. EDMS EDMS 05:02 04:26 HEPATIC FUNCTION+C.LAB.BRZ ordered. EDMS EDMS
[2023-03-07 05:27] VITALS: BP 137/69; TEMP 98.1; O2SAT 100
== END 2023-03-07 05:09 | disposition home or self-care (01) ==
LOC: ER 04:10
DX: F31.9 Bipolar disorder, unspecified (principal); M79.672 Pain in left foot; M79.671 Pain in right foot; Z88.1 Allergy status to other antibiotic agents; Z88.5 Allergy status to narcotic agent; Z88.8 Allergy status to other drugs, medicaments and biological substances; Z91.041 Radiographic dye allergy status

== ENCOUNTER 2023-04-14 05:18 | Emergency (ER) | payer OTHER ==
--- OUTSIDE RECORDS SUMMARY | 2023-04-14 05:23 | XMS REPORT | Continuity of Care Document ---
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 the or iginal. Psychiatry [facility] 12:12:46-00:00 Psychiatry Brief Note: System Collateral: Chasity (Son - [phone]) Has had hallucinations for 6-8 years. He [...] turn her phone off. Son drove to [place] on February 18 2023 at 1AM due to police finding pt in a public restroom with a trashcan on her head sleeping. Stating that people are bombing her and shooting at her. She stat ed that she wanted to go to the [facility] there and [place] is a previous happy place. Pt only [...] [employer]. 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 She retired from that [...] paternal side Leatha Maier D.O. Attending Physician [facility] Provider ID # [id number] Electronically signed by Leatha Maier DO at 02/21 12:15 PM CDT 2023-02-21 Formatting of this note is different fro m the original. Emergency Medicine [facility] 12:01:00-00:00 System History Chief Complaint Patient [...] Kit ED Course as of 02/22/23 0707 e Feb 21, [address] Head w/o Contrast Non-actionable. [SS] 1105 Hemoglobin(!): 11.3 Chronic and improved. CBC non-actionable. [SS] 1106 Basic Metabolic Panel(!) Non-actionable. [SS] 1500 At the time of sign out patient was pending CT C-spine and psychiatry recs. Patient was signed out to e on-coming team under the supervision of Dr. [...] hallucinations. Work up neg. Neck pain x5d 10/[address] canceled due to decline. [AR] ED Course User Index [AR] Danielle Wilson PA [ED] Cristine Poe, ResidentMD [MA] Donna Schneider NP [MR] Shadia Chambers, DEGREASER [SS] Noble Bonilla MD Consult(s): - Psychiatry Disposition: - Continue to monitor in the emergency departmen t Clinical Impression No diagnosis found. Noble Bonilla MD 02/21/23 8412 2023-02-21 [facility] 08:15:00-:00 I took patient from other si tter [...] different fro m the original. Holly Santos [facility] 07:20:00-00:00 System 02/21/23 0720 Crisis Intervention [...] different fro m the original. Tal Dodson [facility] ::-: No past medical history on file. System Chief Complaint Patient presents with Paranoid Hallucinations Patient alert and oriented a t this time. Pt states that her whole family today. Pt states she was eating at [employer] and her whole family in front of [...] Dodson at 02/09 6:25 AM CDT 2023-02-21 [facility] 05:52:03-00:00 Verified name, , and navarro rgies with patient, ID and officer. Patient drove herself to the police station and said that her sons were killed and her killed himself at [employer]. Sons confirm russell System t she has not been formally diagnoses but has been deteriorating. Responding to internal stimuli. Lead psyche tech notified of need for 1:1 sitter. Escorted patient to Pod F18.
--- NOTE | 2023-04-14 06:04 | ER ---
Nurse's Notes [facility] Name: Sharmaine Amaya Age: 73 yrs Sex: Female : 1950 Arrival Date: 04/14/2023 Time: 05:18 Bed 4 Private MD: Diagnosis: Pain in left leg-sp post surgery , healing well Presentation: 04/14 05:23 Chief complaint: EMS states: She was discharged from [facility] in [place] Yesterday kd3 and She woke up this morning, feeling a bit nauseous so she walked down to her neighbors house to call EMS. She said it scared her because she is not supposed to be feeling this way. Pt refused IV in route and now complains of 7/10 leg pain. Coronavirus screen: Vaccine status: Patient reports being unvaccinated. Ebola Screen: No symptoms or risks identified at this time. Initial Sepsis Screen: Does the patient meet any 2 criteria? No. Patient's initial sepsis screen is negative. Does the patient have a suspected source of infection? No. Patient's initial sepsis screen is negative. Risk Assessment: Do you want to hurt yourself or someone else? Patient reports no desire to harm self or others. Onset of symptoms was April 14, 2023. 05:23 Method Of Arrival: EMS: [facility] kd3 05:23 Acuity: YOKO 4 kd3 Triage Assessment: 05:25 General: Appears unkempt, Behavior is anxious. Pain: Complains of pain in left leg. GI: kd3 Reports nausea. Historical: - Allergies: 05:25 triclosan; kd3 05:25 Polymyxin B Sulfate; kd3 05:25 Neomycin Sulfate; kd3 05:25 Morphine; kd3 05:25 Iodinated Contrast Media - IV Dye; kd3 05:25 Gramicidin D; kd3 05:25 Demerol; kd3 05:25 benzalkonium chloride; kd3 05:25 Bacitracin Zinc; kd3 05:25 BACITRACIN; kd3 - PMHx: 05:25 Hallucinations; kd3 - Immunization history:: Adult Immunizations up to date. - Social history:: Smoking status: Patient denies any tobacco usage or history of. Screenin:30 [facility] ED Fall Risk Assessment (Adult) History of falling in the last 3 months, kd3 including since admission Yes- single mechanical fall (1 pt) Confusion or Disorientation No (0 pts) Intoxicated or Sedated No (0 pts) Impaired Gait Yes (1 pt) Mobility Assist Device Used Yes (1 pt) Altered Elimination No (0 pt) Score/Fall Risk Level 3 or more points = High Risk Maintained a safe environment. Abuse screen: Denies threats or abuse. Denies injuries from another. Nutritional screening: No deficits noted. Tuberculosis screening: No symptoms or risk factors identified. Assessment: 05:31 GI: Abdomen is non-distended. kd3 06:07 General: Awaiting X ray results to discharge . kd3 06:07 Cardiovascular: Patient's skin is warm and dry. Respiratory: Airway is patent Trachea kd3 midline Respiratory effort is even, unlabored, Respiratory pattern is regular, symmetrical. 07:16 Reassessment: Pt states she does not have a phone to call anyone for a ride. Chasity Hunter is person to notify/ next of kin on demographic sheet. Attempted to call. No answer. Left . 07:37 Reassessment: Attempted to call son again. No answer. 08:10 Reassessment: Attempted to call son again. No answer. 08:50 Reassessment: Chasity Hunter called back and states that he is out of town and that she can ss call an uber or taxi to take her home. 09:23 Reassessment: PT DC HOME VIA . bp Vital Signs: 05:30 BP 138 / 69; Pulse 79; Resp 16; Temp 98.5(O); Pulse Ox 98% ; Weight 48.53 kg; kd3 06:07 BP 144 / 69; Pulse 69; Resp 16; Pulse Ox 99% on R/A; kd3 09:23 BP 137 / 71; Pulse 75; Resp 16; Pulse Ox 98% ; bp ED Course: 05:22 Patient arrived in ED. kd3 05:25 Triage completed. kd3 05:25 Arm band placed on right wrist. kd3 05:29 Sabas Licona MD is Attending Physician. [facility] 05:30 Tiffanie Alfaro, CLAUDIA is Primary Nurse. kd3 05:31 Patient has correct armband on for positive identification. Provided Education on: . kd3 06:39 Femur Left XRAY In Process Unspecified. EDMS 09:25 No provider procedures requiring assistance completed. Patient did not have IV access bp during this emergency room visit. Administered Medications: No medications were administered Medication: 05:31 VIS not applicable for this client. kd3 Outcome: 06:03 Discharge ordered by . jessica :25 Discharged to home via wheelchair. bp 09:25 Condition: stable 09:25 Discharge instructions given to patient, Instructed on discharge instructions, follow up and referral plans. Demonstrated understanding of instructions, follow-up care. 09:25 Patient left the ED. bp Signatures: Dispatcher [employer] EDIA Sabas Licona MD MD cha Blanchard, Shelby, RN RN ss Terry Sanchez RN RN bp Tiffanie Alfaro, CLAUDIA RN kd3
--- NOTE | 2023-04-14 06:04 | EDPHYS ---
Physician Documentation [facility] Name: Sharmaine Amaya Age: 73 yrs Sex: Female : 1950 Arrival Date: 04/14/2023 Time: 05:18 Bed 4 Private MD: ANA Physician Sabas Licona HPI: 04/14 05:59 This 73 yrs old Female presents to ER via EMS with complaints of Nausea, Leg Pain. jessica 05:59 The patient presents to the emergency department with nausea, that is mild. Onset: The jessica symptoms/episode began/occurred 2 day(s) ago. Possible causes: recent surgery. The symptoms are aggravated by nothing. Associated signs and symptoms: The patient has no apparent associated signs or symptoms. Severity of symptoms: At their worst the symptoms were mild in the emergency department the symptoms are unchanged. The patient has not experienced similar symptoms in the past. Historical: - Allergies: 05:25 triclosan; kd3 05:25 Polymyxin B Sulfate; kd3 05:25 Neomycin Sulfate; kd3 05:25 Morphine; kd3 05:25 Iodinated Contrast Media - IV Dye; kd3 05:25 Gramicidin D; kd3 05:25 Demerol; kd3 05:25 benzalkonium chloride; kd3 05:25 Bacitracin Zinc; kd3 05:25 BACITRACIN; kd3 - PMHx: 05:25 Hallucinations; kd3 - Immunization history:: Adult Immunizations up to date. - Social history:: Smoking status: Patient denies any tobacco usage or history of. ROS: 06:01 Constitutional: Negative for fever, chills, and weight loss, Eyes: Negative for injury, jessica pain, redness, and discharge, ENT: Negative for injury, pain, and discharge, Neck: Negative for injury, pain, and swelling, Cardiovascular: Negative for chest pain, palpitations, and edema, Respiratory: Negative for shortness of breath, cough, wheezing, and pleuritic chest pain, Abdomen/GI: Negative for abdominal pain, nausea, vomiting, diarrhea, and constipation, Back: Negative for injury and pain, : Negative for injury, bleeding, discharge, and swelling, Skin: Negative for injury, rash, and discoloration, Neuro: Negative for headache, weakness, numbness, tingling, and seizure, Psych: Negative for depression, anxiety, suicide ideation, homicidal ideation, and hallucinations, Allergy/Immunology: Negative for hives, rash, and allergies, Endocrine: Negative for neck swelling, polydipsia, polyuria, polyphagia, and marked weight changes, Hematologic/Lymphatic: Negative for swollen nodes, abnormal bleeding, and unusual bruising. 06:01 MS/extremity: Positive for pain, of the lateral aspect of left thigh. Exam: 06:01 Constitutional: This is a well developed, well nourished patient who is awake, alert, jessica and in no acute distress. Head/Face: Normocephalic, atraumatic. Eyes: Pupils equal round and reactive to light, extra-ocular motions intact. Lids and lashes normal. Conjunctiva and sclera are non-icteric and not injected. Cornea within normal limits. Periorbital areas with no swelling, redness, or edema. ENT: Nares patent. No nasal discharge, no septal abnormalities noted. Tympanic membranes are normal and external auditory canals are clear. Oropharynx with no redness, swelling, or masses, exudates, or evidence of obstruction, uvula midline. Mucous membranes moist. Neck: Trachea midline, no thyromegaly or masses palpated, and no cervical lymphadenopathy. Supple, full range of motion without nuchal rigidity, or vertebral point tenderness. No Meningismus. Chest/axilla: Normal chest wall appearance and motion. Nontender with no deformity. No lesions are appreciated. Cardiovascular: Regular rate and rhythm with a normal S1 and S2. No gallops, murmurs, or rubs. Normal PMI, no JVD. No pulse deficits. Respiratory: Lungs have equal breath sounds bilaterally, clear to auscultation and percussion. No rales, rhonchi or wheezes noted. No increased work of breathing, no retractions or nasal flaring. Abdomen/GI: Soft, non-tender, with normal bowel sounds. No distension or tympany. No guarding or rebound. No evidence of tenderness throughout. Back: No spinal tenderness. No costovertebral tenderness. Full range of motion. Female : Normal external genitalia. Skin: Warm, dry with normal turgor. Normal color with no rashes, no lesions, and no evidence of cellulitis. Neuro: Awake and alert, GCS 15, oriented to person, place, time, and situation. Cranial nerves II-XII grossly intact. Motor strength 5/5 in all extremities. Sensory grossly intact. Cerebellar exam normal. Normal gait. Psych: Awake, alert, with orientation to person, place and time. Behavior, mood, and affect are within normal limits. 06:01 Musculoskeletal/extremity: ROM: intact in all extremities, full active range of motion, full passive range of motion, Circulation is intact in all extremities. Sensation intact. Compartment Syndrome exam of affected extremity: is normal. DVT Exam: negative Homans' sign noted on exam, no appreciated bluish discoloration, no erythema, no increased warmth, pain, swelling, tenderness, healing well. Vital Signs: 05:30 BP 138 / 69; Pulse 79; Resp 16; Temp 98.5(O); Pulse Ox 98% ; Weight 48.53 kg; kd3 06:07 BP 144 / 69; Pulse 69; Resp 16; Pulse Ox 99% on R/A; kd3 09:23 BP 137 / 71; Pulse 75; Resp 16; Pulse Ox 98% ; bp MDM: 05:29 Patient medically screened. [facility] 04/14 05:59 Order name: Femur Left XRAY jessica Administered Medications: No medications were administered Disposition Summary: 04/14/23 06:03 Discharge Ordered Location: Home jessica Problem: new jessica Symptoms: have improved jessica Condition: Stable jessica Diagnosis - Pain in left leg - sp post surgery , healing well jessica Followup: jessica - With: Private Physician - When: 2 - 3 days - Reason: Recheck today's complaints, Continuance of care, Re-evaluation by your physician Discharge Instructions: - Discharge Summary Sheet jessica - Musculoskeletal Pain jessica Forms: - Medication Reconciliation Form jessica - Thank You Letter jessica - Antibiotic Education jessica - Prescription Opioid Use jessica - Patient Portal Instructions jessica Signatures: Dispatcher [employer] Sabas Anderson MD MD cha Doucette, Kyli, RN RN kd3
--- NOTE | 2023-04-14 07:49 | RAD REPORT ---
EXAM DESCRIPTION: RAD - Femur Left - 04/14/2023 6:37 am CLINICAL HISTORY: PAIN COMPARISON: No comparisons FINDINGS: Proximal left femoral hardware is noted. No unexpected hardware finding. Mild soft tissue swelling laterally. Ununited lesser trochanteric fragment.
[2023-04-14 09:30] VITALS: TEMP 98.5
[2023-04-14 09:32] VITALS: BP 137/71; O2SAT 98
== END 2023-04-14 09:25 | disposition home or self-care (01) ==
LOC: ER 05:18
DX: G89.18 Other acute postprocedural pain (principal); Z88.1 Allergy status to other antibiotic agents; Z88.3 Allergy status to other anti-infective agents; Z88.5 Allergy status to narcotic agent; Z88.8 Allergy status to other drugs, medicaments and biological substances; Z91.041 Radiographic dye allergy status
CPT/HCPCS: 99283

== ENCOUNTER 2023-04-26 03:48 | Emergency (ER) | payer OTHER ==
--- OUTSIDE RECORDS SUMMARY | 2023-04-26 03:56 | XMS REPORT | Continuity of Care Document ---
:1950 Author Organization [facility] t Address [address] [facility] [address] [place] [address] Care Team Providers Name Role Phone Pcp, Patient Does Not Have Primary Care Physician Unavailmarco e SHAHNAZ RODRIGUEZ Attending Clinician Unavailable TONEY BOWERS Attending Clinician Unavailable Toney Bowers Attending Clinician ULICES GIL Attending Clinician Unavailable ARI COBURN Attending Clinician Unavailable Chad FERNANDEZ, Noble Attending Clinician Garrison FERNANDEZ, Riddhi T Attending Clinician Soraya FERNANDEZ, Perico Pastrana Attending Clinician Lottie Blum MD Attending Clinician Tiffany Giron MD Attending Clinician [phone] NOBLE BONILLA Attending Clinician Unavailable SHAHNAZ RODRIGUEZ Admitting Clinician Unavailable GENO MERRITT Admitting Clinician Unavailable Geno Merritt Admitting Clinician Payers Payer Name Policy Type Policy Number Effective Date Expiration Date S ource HU[employer]NA MEDICARE [id number] 2019 ADVANTAGE PPO 00:00:00 HUMANA FFS [id number] 2019 00:00:00 HU[employer]NA MEDICARE [id number] 2019 ADV 00:00:00 Problems Condition Condition Condition Status Onset Resolution Last Treating Co mments Source Name Details Category Date Date Treatment Clinician Date FALL FALL Diagnosis Active 2023-03-19 Mem oria Active 03-19 10:56:00 l 03/19/2023 00:00: Edward frankel [address] CLOSED CLOSED Diagnosis Active 2023-04-17 Me moria DISPLACED DISPLACED 03-19 21:48:00 l INTERTROCH INTERTROCH 00:00: He rmann ANTERIC ANTERIC 00 FRACT FRACT Active 03/19/2023 [facility] Displaced Displaced Disease Active [facility] 00:00: Me [...] known physiologi physiologi petr petr condition condition Hypothyroi Hypothyro Problem Active 2023-04-14 Memoria dism idism 05:47:23 l (disorder) (disorder) He rmann Active Problem 04/14/2023 [facility] Schizophre Schizophr Problem Active 2023-04-14 Memoria kelly enia 05:47:23 l (disorder) (disorder) He rmann Active Problem 04/14/2023 [facility] DISPLACED Diagnosis Active 2023-04-17 Memoria INTERTROCH DISPLACED 21:48:00 l ANTERIC INTERTROCH Cassandra nn FRACTURE ANTERIC OF FRACTURE OF Active [facility] ESSENTIAL ESSENTIAL Diagnosis Active 2023-04-17 Memoria (PRIMARY) (PRIMARY) 21:48:00 l HYPERTENSI HYPERTENSI He rmann ON ON Active [facility] Allergies, Adverse Reactions, Alerts Allergy Allergy Status Severity Reaction(s) Onset Inactive Treating Comm ents Source Name Type Date Date Clinician Latex Propensi Active Itching Tristan ty to 6-13 Health adverse 00:00: reaction 00 s to drug Shrimp Propensi Active Palpitations Nesbitt rris ty to 6-13 Health adverse 00:00: reaction 00 s to drug PISTACHI Allergy Active High Hives 2020-0 [facility] O NUT 04-08 00:00: 00 CASHEW Allergy Active High Hives 2020-0 [facility] NUT 04-08 00:00: 00 MANDARIN Allergy Active Itching 2020-0 [facility] ORANGE 04-08 00:00: 00 Cashew Propensi Active Hives 1-[address] [facility] Nut [facility] adverse 00:[facility]: Medical reaction 00 Center s Mandarin Propensi Active Itching 2020-0 [facility] [place] [facility] adverse 00:00: Medical reaction 00 Center s [place] Drug Active Hives 2020-[address] [facility] o Nut Allergy 04-08 [facility] IODINE Allergy Active High Hives 2020-[address] [facility] SHRIMP Allergy Active High Hives 2020-[address] [facility] Center TRICLOSA Allergy Active High Hives 2020-[address] [facility] N 04-06 [facility] OTHER Allergy Active 2020-[address] [facility] POISON Allergy Active Other 2020-[address] [facility] QUYNH 27 [facility] EXTRACT [facility] 00 Center MEPERIDI Allergy Active Low Itching 1-[address] [facility] 7-27 [facility] 00[facility] Center MORPHINE Allergy Active Low Rash 1-[address] [facility] 00[facility] 00 Center Shrimp Propensi Active Hives 2020-[address] [facility] ty to 27 [facility] adverse 00:00: Medical reaction 00 Center s Triclosa Propensi Active Hives, 2020-[address] [facility] n ty to Swelling 04-06 [facility] adverse 00:00: Medical reaction 00 Center s Meperidi Propensi Active Itching, 2020-[address] [facility] ne ty to Rash 04-06 [facility] adverse 00:00: Medical reaction 00 Center s Iodine Propensi Active Hives 1-[address] [facility] [address] ty to 7-27 [facility] adverse 00:00: Medical reaction 00 Center s Morphine Propensi Active Rash 1-[address] [facility] to [facility] [...] adverse 00:00: Medical reaction 00 Center s morphine morphine Active Memori a l Alec Demerol Demerol Active [facility]oria l [place] Other Other Active Memoria Food Food l Allergy< Allergy< Edward n sup>1</s sup>1</s up> up> iodine iodine Active Memoria l [place] NO KNOWN Allergy Active [facility] ALLERGIE S Social History Social Habit Start Date Stop Date Quantity Comments Source Gender identity [facility] alth Sexual orientation [facility] Exposure to 2023-02-11 2023-02-21 Not sure [facility] SARS-CoV-2 (event) 00:00:00 05:50:00 History of Social 2023-02-21 2023-02-21 [facility] function 00:00:00 00:00:00 Alcohol intake 2021-04-08 2021-04-08 Ex-drinker [facility] es 00:00:00 00:00:00 (finding) [facility] Tobacco use and 2021-04-06 2021-04-06 Smokeless tobacco [facility] exposure 00:00[facility]00 00:00:00 non-user [facility] Sex Assigned At [address] [facility] 00:00:00 00:00:00 [facility] Smoking Status Start Date Stop Date Source Tobacco smoking status [facility] Medications Ordered Filled Start Stop Current Ordering Indication Dosage Frequency Signature Comments Components Source Medication Medication Date Date Medication? Clinician (SIG) Name Name gabapentin Yes 100 mg = 1 M emoria 100 mg oral 8 cap, PO, l capsule 18:29: Q8Hnow, # Cassandra nn 00 90 cap, 0 Refill(s), Pharmacy: [facility], 152.4, cm, 03/19/23 13:10:00 CDT, Height, 45.455, kg, 03/19/23 13:10:00 CDT, Weight MiraLax Yes Notes: Memoria 7-18 Dissolve l 14:00: in 8 oz of Alec 00 water or juice. (Same as: Miralax) Senokot S Yes Notes: Memori a 7-18 (Same as l 02:00: Senokot-S) Alec 00 Equiv. to Rosie-Colac e. calcium-vit Yes 1 tab, PO, Memoria woods D 500 7-17 BID, # 60 l mg-400 intl 22:07: tab, 2 Herm pema units oral 00 Refill(s), tablet Pharmacy: [facility], 152.4, cm, 03/19/23 13:10:00 CDT, Height, 45.455, kg, 03/19/23 13:10:00 CDT, Weight gabapentin Yes 100 mg = 1 M emoria 100 mg oral 7-17 cap, PO, l capsule 22:05: Q8Hnow, 0 Cassandra nn 00 Refill(s) haloperidol Yes 5 mg = 1 Me moria 5 mg oral 7-17 tab, PO, l tablet 22:05: Bedtime, # Cassandra nn 00 30 tab, 1 Refill(s), Pharmacy: [facility] 482, 152.4, cm, 03/19/23 13:10:00 CDT, Height, 45.455, kg, 03/19/23 13:10:00 CDT, Weight levothyroxi Yes 50 Memori a ne 50 mcg 7-17 microgram l (0.05 mg) 22:04: = 1 tab, Herm pema oral tablet 00 PO, Q630AM, # 30 tab, 2 Refill(s), Pharmacy: [facility] 482, 152.4, cm, 03/19/23 13:10:00 CDT, Height, 45.455, kg, 03/19/23 13:10:00 CDT, Weight aspirin 81 0 Yes 81 mg = 1 Me moria mg tablet, 7-17 tab, PO, l enteric 22:04: Daily, # Edward n coated 00 30 tab, 2 Refill(s), Pharmacy: [facility] 482, 152.4, cm, 03/19/23 13:10:00 CDT, Height, 45.455, kg, 03/19/23 13:10:00 CDT, Weight lactulose Yes Notes: Memori a 10 g/15 mL 7-17 (Same l oral syrup 18:00: as:Chronul H erm ac) MiraLax No Notes: Memoria 7-17 Dissolve l 14:17: in 8 oz of water or juice. (Same as: Miralax) Dulcolax No Notes: Memoria Laxative 7-17 (Same As: l 14:17: Dulcolax, Bisco-Lax) Fleet Enema No 230 mL, Mem oria Extra 7-17 Route: MN, l 14:17: Drug Form: PRASHANT, Dosing Weight 45.455, kg, ONCE, Start date: 03/27/23 9:17:00 CDT, Stop date: 03/27/23 9:17:00 CDT, 0 Fleet Enema No 133 mL, Mem oria Extra -16 Route: MN, l 23:02: Drug Form: PRASHANT, Dosing Weight 45.455, kg, ONCE, Start date: 03/26/23 18:02:00 CDT, Stop date: 03/26/23 18:02:00 CDT, 0 aspirin Yes Notes: Do Memor ia 7-15 not crush l 14:00: or chew. (Same As: Ecotrin) Haldol Yes Notes: Memoria 7-15 (Same as: l 02:00: Haldol) NS (Bolus) No 1,000 mL, Me moria IV 7-14 1,000 l 22:43: ml/hr, Infuse Over: 1 hr, Route: IV, 1,000, Drug form: INJ, ONCE, Priority: STAT, Dosing Weight 45.455 kg, Start date: 03/24/23 17:43:00 CDT, Stop date: 03/24/23 17:43:00 CDT, 0 hydrOXYzine Yes Notes: Alex ronald hydrochlori 7-14 (Same as: l de 25 mg 12:52: Atarax) Edward n oral tablet 00 Avoid alcohol. carvedilol No Notes: Memor ia 7-14 Give with l 12:51: food. Alec 00 (Same As: Coreg) midodrine Yes Notes: Memori a 7-13 (Same l 20:53: as:Proamat Alec 00 ine) normal No 1,000 mL, Memori a saline 0.9% - 1,000 l (Bolus) IV 17:32: ml/hr, Cassandra nn 00 Infuse Over: 1 hr, Route: IV, 1,000, Drug form: INJ, ONCE, Priority: STAT, Dosing Weight 45.455 kg, Start date: 03/23/23 12:32:00 CDT, Stop date: 03/23/23 12:32:00 CDT, 0 Sodium Yes 250 mL, Memoria Chloride 03-23 Rate: l 0.9% 01:01: TitrateAlec (titrate) 00 Dosing 250 mL Weight 45.455, kg, Route: IV, Total Volume: 250, Start Date: 03/22/23 20:01:00 CDT, Duration: 30 day, Stop date: 04/21/23 20:00:00 CDT, Replace Every: 24 hr, 0 midodrine No Notes: Memori a 7-12 (Same l 23:25: as:Proamat [place] 00 ine) NS (Bolus) No 1,000 mL, Me moria IV -12 1,000 l 23:22: ml/hr, Alec 00 Infuse Over: 1 hr, Route: IV, 1,000, Drug form: INJ, ONCE, Priority: STAT, Dosing Weight 45.455 kg, Start date: 03/22/23 18:22:00 CDT, Stop date: 03/22/23 18:22:00 CDT, 0 Tylenol Yes Notes: Do Memor ia 7-12 not exceed l 17:06: 4 gm/day. Alec 00 (Same as: Tylenol) ceFAZolin No Notes: Memori a (SCIP) + 7-10 (Same As: l sterile 21:00: Ancef, Alec water 20 mL 00 Kefzol) MEDICATION WASTE Product Size: 1000 mg Product Wasted: ___ mg albumin No Notes: Memoria human 5% 7-10 LOT#: l intravenous 14:07: [place] solution 00 ___Mfg:___ ___ (Same as: Albuminar) "blood product derivative " WASTE: F/P - Red; E -Red MEDICATION WASTE Product Size: 25 gm Product Wasted: _0__ gm levothyroxi Yes Notes: Alex ronald ne 7-10 Take 1 l 14:00: hour before or 2 hours after meal; Enteral feeds may interefere with the absorption of this medication .(Same as:Levothr oid, Synthroid) Norvasc No Notes: Memoria 7-10 (Same as: l 14:00: Norvasc) calcium Yes Notes: Memoria carbonate 7-10 500mg l 14:00: elemental 00 calcium = 1250mg calcium carbonate. Contains 500mg elemental calcium. (Same As: OsCal 500) cholecalcif Yes Notes: Alex ronald sallie 7-10 Same as : l 14:00: Vitamin D3 OLANZapine No Notes: Memor ia 7-10 (Same as: l 14:00: ZyPREXA) sertraline No Notes: Memor ia 7-10 (Same as: l 14:00: Zoloft) metoprolol No 2.5 mg, Alex ronald 5 mg/5 ml 7-10 Route: l INJ 13:51: IVP, Drug form: INJ, ONCE, Dosing Weight 45.455, kg, Start date: 03/20/23 8:51:00 CDT, Stop date: 03/20/23 8:51:00 CDT metoprolol No 2.5 mg, Alex ronald 5 mg/5 ml 7-10 Route: l INJ 13:35: IVP, Drug form: INJ, ONCE, Dosing Weight 45.455, kg, Start date: 03/20/23 8:35:00 CDT, Stop date: 03/20/23 8:35:00 CDT metoprolol 0 No 2 mg, Memori a 5 mg/5 ml 7-10 Route: l INJ 13:10: IVP, Drug form: INJ, ONCE, Dosing Weight 45.455, kg, Start date: 03/20/23 8:10:00 CDT, Stop date: 03/20/23 8:10:00 CDT metoprolol 0 No 3 mg, Memori a 5 mg/5 ml 7-10 Route: IV, l INJ 12:52: ONCE, Dosing Weight 45.455, kg, Start date: 03/20/23 7:52:00 CDT, Stop date: 03/20/23 7:52:00 CDT lidocaine No Route: IV, Me moria (ANES) 7-10 Drug form: l 12:39: INJ, ONCE, Stop date: 03/20/23 7:39:00 CDT propofol No Route: IV, Mem oria (ANES) 7-10 Drug form: l 12:39: INJ, ONCE, Stop date: 03/20/23 7:39:00 CDT ondansetron No Route: IV, Memoria (ANES) 7-10 Drug form: l 12:39: INJ, ONCE, Stop date: 03/20/23 7:39:00 CDT dexamethaso No Route: IV, Memoria ne (ANES) 7-10 Drug form: l 12:39: INJ, ONCE, Stop date: 03/20/23 7:39:00 CDT phenylephri No Route: IV, Memoria ne (ANES) 7-10 Drug form: l 12:39: INJ, ONCE, Stop date: 03/20/23 7:39:00 CDT ANES No Notes: Memoria oxyCODONE 5 7-10 (Same as: l mg 12:36: Roxicodone ) release tablet ANES No Notes: Memoria HYDROmorpho 7-10 Same as: l ne 12:36: Dilaudid S No Notes: Memoria naloxone 7-10 Same as l 12:36: Narcan S No Notes: Memoria ondansetron 7-10 (Same as: l 12:36: Zofran) MEDICATION WASTE Product Size: 4 mg Product Wasted: ___ mg glycopyrrol No Route: IV, Memoria ate (ANES) 7-10 Drug form: l 12:29: INJ, ONCE, Stop date: 03/20/23 7:29:00 CDT fentaNYL No Route: IV, Mem oria (ANES) 7-10 Drug form: l 12:19: INJ, ONCE, Stop date: 03/20/23 7:19:00 CDT ceFAZolin No Route: IV, Me moria (ANES) 7-10 Drug form: l 12:19: INJ, ONCE, Stop date: 03/20/23 7:19:00 CDT ePHEDrine No Route: IV, Me moria (ANES) 7-10 Drug form: l 12:19: INJ, ONCE, Stop date: 03/20/23 7:19:00 CDT Lactated No Route: IV, Mem oria Ringers 7-10 Total l Injection 11:30: Volume: Cassandra nn IV (ANE) 1,000, 1000 mL Start date: 03/20/23 6:30:00 CDT, Stop date: 03/20/23 7:30:00 CDT mirtazapine No Notes: Alex ronald 7-10 (Same l 02:00: as:Remeron ) docusate No 100 mg, 1 Alex ronald 7-09 cap, l 22:00: Route: PO, Drug form: CAP, BID, Dosing Weight 45.455, kg, Start date: 03/19/23 17:00:00 CDT, Duration: 30 day, Stop date: 04/18/23 9:00:00 CDT, 0 risperiDONE No Notes: Alex ronald -09 (Same as: l 22:00: Risperdal) famotidine Yes Notes: Memor ia 20 mg oral 03-19 (Same as: l tablet 22:00: Pepcid) ceFAZolin + Yes Notes: Alex ronald sterile 03-19 (Same As: l water 20 mL 17:00: Ancef, Kefzol) MEDICATION WASTE Product Size: 1000 mg Product Wasted: 0___ mg enoxaparin Yes Notes: Memor ia - (Same as: l 17:00: Lovenox) hydrALAZINE Yes Notes: Alex ronald - (Same as: l 16:25: Apresoline ) oxyCODONE 5 No Notes: Alex ronald mg/5 mL 03-19 (Same as: l oral 16:22: 'Roxicodon solution e) bisacodyl No Notes: Memori a 03-19 (Same As: l 16:22: Dulcolax, Bisco-Lax) melatonin Yes Notes: Memori a - (Same as: l 16:22: Melatonin) acetaminoph Yes Notes: Max Memoria en 03-19 acetaminop l 16:21: hen 4000 00 mg/day (4 gm/day). (Same as: Tylenol Extra Strength) gabapentin Yes Notes: Memor ia - (Same as: l 16:21: Neurontin) mirtazapine No 7.5 mg = 1 Memoria 7.5 mg oral 09 tab, PO, l tablet 16:18: Bedtime, # Cassandra nn 00 30 tab, 0 Refill(s) levothyroxi No 25 Memori a ne 25 mcg 03-19 microgram l (0.025 mg) 16:18: = 1 tab, Her lopez oral tablet 00 PO, Daily, # 30 tab, 0 Refill(s) sertraline No 50 mg = 1 Me moria 50 mg oral 7- tab, PO, l tablet 16:17: Daily, # Alec 00 30 tab, 0 Refill(s) risperiDONE No 1 mg = 2 Me moria 0.5 mg oral 7-09 tab, PO, l tablet 16:17: BID, # 120 Cassandra nn 00 tab, 0 Refill(s) OLANZapine No 5 mg = 1 Mem oria 5 mg oral 7-09 tab, PO, l tablet 16:17: Daily, # Alec 00 30 tab, 0 Refill(s) Dilaudid No Notes: Memoria - Same as: l 14:05: Dilaudid Alec 00 HYDROcodone Yes 1{tbl} Take [address] -acetaminop 7-30 tablet by Isreal es hen (NORCO 23:08: mouth Medica l 10-325) 16 every 6 Center 10-325 mg (six) per tablet hours as needed for Pain. aspirin 81 0 Yes 81mg QD Take [address] [facility] 7-30 by [facility] tablet 23:08: daily. [address] BIOTIN ORAL 0 Yes QD Take by [facility] 23:08: daily. [address] ZINC ORAL 0 Yes QD Take by [facility] 23:08: daily. [address] HYDROcodone Yes 1{tbl} Take [address] -acetaminop 7-30 tablet by Isreal es hen (NORCO 23:08: mouth Medica l 10-325) 16 every 6 Center 10-325 mg (six) per tablet hours as needed for Pain. aspirin 81 2020-0 Yes 81mg QD Take [address] [facility] EC 7-30 by [facility] tablet 23:08: daily. [address] BIOTIN ORAL 2020-0 Yes QD Take by [facility] 23:08: daily. [address] ZINC ORAL 2020-0 Yes QD Take by [facility] 23:08: daily. [address] HYDROcodone 2020- Yes 1{tbl} Take [address] -acetaminop 7-30 tablet by Isreal es hen (NORCO 23:08: mouth Medica l 10-325) 16 every 6 Center 10-325 mg (six) per tablet hours as needed for Pain. aspirin 81 2020-0 Yes 81mg QD Take [address] [facility] 7-30 by [facility] tablet 23:08: daily. [address] BIOTIN ORAL 2020-0 Yes QD Take by [facility] 23:08: daily. [address] ZINC ORAL 2020-0 Yes QD Take by [facility] 23:08: daily. [address] HYDROcodone Yes 1{tbl} Take [address] -acetaminop 7-30 tablet by Isreal es hen (NORCO 23:08: mouth Medica l 10-325) 16 every 6 Center 10-325 mg (six) per tablet hours as needed for Pain. aspirin 81 Yes 81mg QD Take [address] [facility] 7-30 by mouth [facility] tablet 23:08: daily. [address] BIOTIN ORAL 0 Yes QD Take by [facility] 23:08: daily. [address] ZINC ORAL 2020-0 Yes QD Take by [facility] 23:08: daily. [address] Vital Signs Vital Name Observation Time Observation Value Comments Source HEIGHT 2021-04-07 21:25:00 170.2 cm WEIGHT 2021-04-07 21:25:00 55.929 kg HEIGHT 2021-04-07 07:50:00 170.2 cm WEIGHT 2021-04-07 07:50:00 58.968 kg HEIGHT 2021-04-06 15:00:00 170.2 cm WEIGHT 2021-04-06 15:00:00 58.968 kg Systolic blood 2023-02-22 14:35:00 145 mm[Hg] [facility] pressure Diastolic blood 2023-02-22 14:35:00 76 mm[Hg] [facility] pressure Heart rate 2023-02-22 14:35:00 80 /min [facility] Body temperature 2023-02-22 14:35:00 36.78 Maria Del Carmen [facility] Respiratory rate 2023-02-22 14:35:00 18 /min [facility] Oxygen saturation in 2023-02-22 14:35:00 98 /min [facility] Arterial blood by Pulse oximetry BMI 2023-02-21 06:05:00 21.40 kg/m2 [facility] Body height 2023-02-21 06:05:00 157.5 cm [facility] Body weight 2023-02-21 06:05:00 53.071 kg [facility] HEIGHT 2021-04-07 21:25:00 170.2 cm WEIGHT 2021-04-07 21:25:00 55.929 kg HEIGHT 2021-04-07 07:50:00 170.2 cm WEIGHT 2021-04-07 07:50:00 58.968 kg HEIGHT 2021-04-06 15:00:00 170.2 cm WEIGHT 2021-04-06 15:00:00 58.968 kg Height 2023-04-11 15:01:00 5 [ft_i] [facility] Weight 2023-04-11 15:01:00 [facility] Heart Rate 2023-04-11 12:46:16 [facility] Systolic (mm Hg) 2023-04-11 12:46:01 Alex rial [place] Diastolic (mm Hg) 2023-04-11 12:46:01 Mem orial [place] Temperature Oral (F) 2023-04-11 12:45:41 97.9 F [facility] Heart Rate 2023-04-10 06:08:16 [facility] Systolic (mm Hg) 2023-04-10 06:07:37 Alex rial [place] Diastolic (mm Hg) 2023-04-10 06:07:37 Mem orial Alec Heart Rate 2023-04-10 06:07:37 [facility] Temperature Oral (F) 2023-04-10 06:07:34 97.7 F [facility] Heart Rate 2023-04-10 00:40:24 [facility] Respitory Rate 2023-04-10 00:40:24 Memori al Alec Systolic (mm Hg) 2023-04-10 00:40:08 Alex rial Alec Diastolic (mm Hg) 2023-04-10 00:40:08 Mem orial Alec Temperature Oral (F) 2023-04-10 00:38:36 98.4 F [facility] Systolic (mm Hg) 2023-04-09 18:02:31 Alex rial Alec Diastolic (mm Hg) 2023-04-09 18:02:31 Mem orial [place] Temperature Oral (F) 2023-04-09 18:02:29 98.2 F [facility] Respitory Rate 2023-04-08 17:50:18 Memori al Alec Respitory Rate 2023-04-08 13:12:04 Memori al [place] Temperature Oral (F) 2023-04-06 01:32:24 97.7 F [facility] Heart Rate 2023-04-03 01:13:01 [facility] Respitory Rate 2023-04-03 01:13:01 Memori al [place] Systolic (mm Hg) 2023-04-03 01:12:50 Alex rial [place] Diastolic (mm Hg) 2023-04-03 01:12:50 Mem orial [place] Heart Rate 2023-04-03 01:12:50 [facility] Temperature Oral (F) 2023-04-03 01:12:17 98 F [facility] Heart Rate 2023-04-02 17:11:14 [facility] Respitory Rate 2023-04-02 17:11:14 Memori al Alec Temperature Oral (F) 2023-04-02 17:11:05 98.2 F [facility] Systolic (mm Hg) 2023-04-02 17:11:01 Alex rial Alec Diastolic (mm Hg) 2023-04-02 17:11:01 Mem orial [place] Respitory Rate 2023-04-02 12:23:27 Memori al [place] Systolic (mm Hg) 2023-04-02 12:23:18 Alex rial [place] Diastolic (mm Hg) 2023-04-02 12:23:18 Mem orial [place] Temperature Oral (F) 2023-04-02 12:22:21 98.2 F [facility] Height 2023-03-19 18:10:00 152.4 cm [facility] Weight 2023-03-19 18:10:00 [facility] BMI Calculated 2023-03-19 18:10:00 Memori al Alec Height 2023-03-19 13:28:00 160.02 cm [facility] BMI Calculated 2023-03-19 13:28:00 Brittney Lehman Weight 2023-03-19 13:28:00 [facility] Systolic blood 2023-02-22 14:35:00 145 mm[Hg] [facility] pressure Diastolic blood 2023-02-22 14:35:00 76 mm[Hg] [facility] pressure Heart rate 2023-02-22 14:35:00 80 /min [facility] Body temperature 2023-02-22 14:35:00 36.78 [facility] Del Carm[facility] Respiratory rate 2023-02-22 14:35:00 18 /min [facility] Oxygen saturation in 2023-02-22 14:35:00 98 /min [facility] Arterial blood by Pulse oximetry Body height 2023-02-21 06:05:00 157.5 cm [facility] Body weight 2023-02-21 06:05:00 53.071 kg [facility] BMI 2023-02-21 06:05:00 21.40 kg/m2 [facility] Procedures Procedure Date / Time Performed Performing Clinician [facility] e URINE DRUG SCREEN 2023-02-22 02:10:00 Noble Bonilla [facility] URINALYSIS W/REFLEX TO 2023-02-22 02:10:00 Noble Bonilla [facility] URINE CULTURE URINALYSIS 2023-02-22 02:10:00 Noble Bonilla [facility] URINE CULTURE COLLECTION 2023-02-22 02:10:00 Noble Bonilla [facility] KIT URINE DRUG SCREEN 2023-02-22 02:10:00 [facility] URINALYS[facility] W/REFLEX TO 2023-02-22 02:10:00 [facility] URINE CULTURE URINALYSIS 2023-02-22 02:10:00 Noble Bonilla [facility] URINE CULTURE COLLECTION 2023-02-22 02:10:00 Noble Bonilla [facility] KIT CONSULT CLINICAL CASE 2023-02-21 14:25:23 Jey Giron [facility] (RN/SW) A CONSULT CLINICAL CASE 2023-02-21 14:25:23 Jey Giron [facility] MANAGEMENT (RN/SW) A CT HEAD W/O CONTRAST 2023-02-21 10:01:[address] [facility] CT HEAD W/O CONTRAST 2023-02-21 10:01:32 Noble Bonilla [facility] Health CBC/DIFF 2023-02-21 08:21:00 [facility] BASIC METABOLIC PANEL 2023-02-21 08:21:00 [facility] CBC 2023-02-21 08:21:00 [facility] BASIC METABOLIC PANEL 2023-02-21 08:21:00 [facility] Bonilla [facility] CBC/DIFF 2023-02-21 08:21:00 Noble Bonilla [facility] CBC 2023-02-21 08:21:00 [facility] Plan of Care Planned Activity Planned [...] (Season Ended)] Future Scheduled 2023-05-12 Influenza Vaccine (#1) [facility] 00:00:00 [code = Influenza Medical Ce nter Vaccine (#1)] Future Scheduled 2023-05-12 Influenza Vaccine (#1) [facility] 00:00:00 [code = Influenza Medical Ce nter Vaccine (#1)] Future Scheduled 2022-09-[address] [...] IPPE)] Future Scheduled 2014 Imm Pneumococcal 65+ (1 [facility] Test 00:00:00 - PCV) [code = Imm [...] - PCV)] Future Scheduled 1999 Screening for malignant [facility] Test 00:00:00 neoplasm of colon (procedure) [code = 915610305] Future Scheduled 1999 SHINGLES VACCINES (1 of [...] 2)] Future Scheduled [address] [facility] Health Test 00:00:00 (Yearly) [code = [...] breast Medical C enter (procedure) [code = 667769270] Future Scheduled 1949 CT Colonography (combo) [facility] Test 00:00:00 [code = CT Colonography [facility] (combo)] Future Scheduled 1949 Screening for malignant [facility] Test 00:00:00 neoplasm of colon Medical Ce nter (procedure) [code = [id number]] Future Scheduled 1949 Screening for malignant [facility] Test 00:00:00 neoplasm of colon Medical Ce nter (procedure) [code = [id number]] Future Scheduled 1949 DXA SCAN [code = DXA [facility] Test 00:00:00 SCAN] [facility] Future Scheduled 1949 Screening for malignant [facility] Test 00:00:00 neoplasm of colon Medical Ce nter (procedure) [code = [id number]] Future Scheduled 1949 Screening for malignant [facility] Test 00:00:00 neoplasm of colon Medical Ce nter (procedure) [code = [id number]] Future Scheduled 1949 Sigmoidoscopy [code = [facility] Future Scheduled 1949 Screening for malignant [facility] 00:00:00 neoplasm of breast Medical C enter (procedure) [code = 954242682] Future Scheduled 1949 CT Colonography (combo) [facility] 00:00:00 [code = CT Colonography [facility] (combo)] Future Scheduled 1949 Screening for malignant [facility] 00:00:00 neoplasm of colon Medical Ce nter (procedure) [code = 209678040] Future Scheduled 1949 Screening for malignant [facility] 00:00:00 neoplasm of colon Medical Ce nter (procedure) [code = 641983152] Future Scheduled 1949 DXA SCAN [code = DXA [facility] 00:00:00 SCAN] [facility] Future Scheduled 1949 Screening for malignant [facility] 00:00:00 neoplasm of colon Medical Ce nter (procedure) [code = 506752258] Future Scheduled 1949 Screening for malignant [facility] 00:00:00 neoplasm of colon Medical Ce nter (procedure) [code = 270840210] Future Scheduled 1949 Sigmoidoscopy [code = [facility] Future Scheduled 1949 Screening for malignant [facility] 00:00:00 neoplasm of breast Medical C enter (procedure) [code = 617778644] Future Scheduled 1949 CT Colonography (combo) [facility] 00:00:00 [code = CT Colonography [facility] (combo)] Future Scheduled 1949 Screening for malignant [facility] 00:00:00 neoplasm of colon Medical Ce nter (procedure) [code = 454616710] Future Scheduled 1949 Screening for malignant [facility] 00:00:00 neoplasm of colon Medical Ce nter (procedure) [code = 149383766] Future Scheduled 1949 DXA SCAN [code = DXA [facility] 00:00:00 SCAN] [facility] Future Scheduled 1949 Screening for malignant [facility] 00:00:00 neoplasm of colon Medical Ce nter (procedure) [code = 259798468] Future Scheduled 1949 Screening for malignant [facility] 00:00:00 neoplasm of colon Medical Ce nter (procedure) [code = 980179852] Future Scheduled 1949 Sigmoidoscopy [code = [facility]] [facility] Future Scheduled 1949 Screening for malignant [facility] 00:00:00 neoplasm of breast Medical C enter (procedure) [code = 884460120] Future Scheduled 1949 CT Colonography (combo) [facility] 00:00:00 [code = CT Colonography [facility] (combo)] Future Scheduled 1949 Screening for malignant [facility] 00:00:00 neoplasm of colon Medical Ce nter (procedure) [code = 022767078] Future Scheduled 1949 Screening for malignant [facility] 00:00:00 neoplasm of colon Medical Ce nter (procedure) [code = 563699242] Future Scheduled 1949 DXA SCAN [code = DXA [facility] 00:00:00 SCAN] [facility] Future Scheduled 1949 Screening for malignant [facility] 00:00:00 neoplasm of colon Medical Ce nter (procedure) [code = 604450951] Future Scheduled 1949 Screening for malignant [facility] 00:00:00 neoplasm of colon Medical Ce nter (procedure) [code = 452602665] Future Scheduled 1949 Sigmoidoscopy [code = [facility] End Encounter Admission Attending Care Care Encounter Source Date/Time Date/Time Type Type Clinicians Facility Department ID 2023-04-04 Outpatient [facility] [id number] [place] 10:20:03 [id number] [facility] 2023-03-21 Outpatient [facility] [id number] [place] 08:01:14 [id number] [facility] 2021-06-20 Outpatient MICHAEL [facility] Surgery [id number] [facility] 06:18:23 SHAHNAZ 2023-03-19 2023-04-12 Inpatient [facility] [id number] [place] 13:26:00 01:40:00 Alec marcin [facility] 2023-03-19 2023-04-11 Inpatient Nuria [facility] [id number] Memoria 10:58:00 20:40:00 TONEY Hamilton 2023-03-19 2023-04-11 Inpatient Nuria [facility] [id number] Memoria 10:58:00 20:40:00 TONEY Hamilton 2023-03-19 2023-04-11 Outpatient Akram, MH9 MH9 [id number] 08:26:00 20:40:00 Jamshaid 00 2023-04-05 2023-04-05 Outpatient [facility] [id number] [place] 10:00:00 10:00:00 Demian [place] 2023-04-03 2023-04-03 Outpatient ALMAS, [facility] [id number] Tristan 00:00:00 00:00:00 [facility] 2023-03-19 2023-03-19 Outpatient Akram, MH9 MH9 [id number] 08:26:00 08:26:00 Jamshaid 00 2023-03-19 2023-03-19 Outpatient Akram, MH9 MH9 [id number] 08:26:00 08:26:00 Jamshaid 00 2023-03-19 2023-03-19 Outpatient Akram, MH9 MH9 [id number] 08:26:00 08:26:00 [facility] 00 2023-02-21 2023-02-22 Emergency Noble Bonilla [facility] [id number] [place] 06:07:00 15:25:00 [place] [id number] [facility] .[id number] Lottie Blum [id number] AlbertoTiffany Tierney 2023-02-21 2023-02-21 Emergency [facility] [id number] [place] 09:18:00 10:01:38 Health 2023-02-21 2023-02-21 Emergency [facility] [id number] [place] 00:00:00 00:00:00 Health 2023-02-21 2023-02-21 Emergency SANTHAKUMAR [facility] [id number] [place] 00:00:00 00:00:00 [facility] 2021-04-06 2021-04-06 Outpatient [facility] [id number] [facility] 00:00:00 00:00:00 2021-04-06 2021-04-06 Outpatient [facility] [id number] SLE 00:00:00 00:00:00 Results Test Description Test Time Test Comments Results Result Comments Source IMMUNOLOGY 2023-04-06 16:51:00 Test Item Value Reference Range Interpretation Comme nts Coronavirus (COVID-19) GREG (test code = Detected 20, 21*ABN*(03/12 04/02 11:51 AM) Coronavirus (COVID-19) GREG) [facility] 16:51:00 Test Item Value Reference Range Interpretation Comments Coronavirus (COVID-19) Detected 17, GREG (test code = 18*ABN*(04/06/23 11:51 Coronavirus (COVID-19) AM) GREG) [facility]cg[facility]rvPKVCZQBYDC8464-[facility] 13:07:00 Test Item Value Reference Range Interpretation Comments Coronavirus (COVID-19) Detected 22, GREG (test code = 23*ABN*(04/04/23 8:07 Coronavirus (COVID-19) AM) GREG) [facility] Center[facility]syqsutFIGCFVLAWQ6130-98-49 18:52:00 Test Item Value Reference Range Interpretation Comments Coronavirus (COVID-19) Detected 24, GREG (test code = 25*ABN*(03/28/23 1:52 Coronavirus (COVID-19) PM) GREG) [facility] HospitalMosjodsEPSKWZFVC2731-45-96 08:33:00 Test Item Value Reference Range Interpretation Comments Potassium Lvl (test code = Potassium 4.3 3.5-5.1 Lvl) [facility] HospitalZzeuptnCSBSXPDDR8327-99-87 08:33:00 Test Item Value Reference Range Interpretation Comments Chloride Lvl (test code = Chloride Lvl) 100 95-109 [facility] HospitalIjaxdmlUSROLGQOX8208-76-03 08:33:00 Test Item Value Reference Range Interpretation Comments CO2 (test code = CO2) 30 24-32 [facility] HospitalTkuqazkNVMCKRIHP1279-93-82 08:33:00 Test Item Value Reference Range Interpretation Comments Calcium Lvl (test code = Calcium Lvl) 9.2 8.5-10.5 [facility] HospitalVfvdqauYOLHDVQLM0920-01-83 08:33:00 Test Item Value Reference Range Interpretation Comments AGAP (test code = AGAP) 9.3 10.0-20.0 [facility] HospitalMreztdgVNDQKIHUD7291-59-17 08:33:00 Test Item Value Reference Range Interpretation Comments eGFR (test code = eGFR) 93 [place] [address]-07-17 08:33:00 Test Item Value Reference Range Interpretation Comments Segs (test code = Segs) 78.2 45.0-75.0 [place] [address]-07-17 08:33:00 Test Item Value Reference Range Interpretation Comments Lymphocytes (test code = Lymphocytes) 10.9 20.0-40.[address]07-17 08:33:00 Test Item Value Reference Range Interpretation Comments Monocytes (test code = Monocytes) 10.1 2.0-12.[address]07-17 08:33:00 Test Item Value Reference Range Interpretation Comments Eosinophils (test code = 0.5 See_Comment [A utomated message] The Eosinophils) system which ge nerated this result tra nsmitted reference range : <=4.0. The reference r vasile was not used to int erpret this result as normal/abnormal . [address]07-17 08:33:00 Test Item Value Reference Range Interpretation Comments Basophils (test code = 0.3 See_Comment [Aut omated message] The Basophils) system which ge nerated this result tra nsmitted reference range : <=1.0. The reference r vasile was not used to int erpret this result as normal/abnormal . [address]07-17 08:33:00 Test Item Value Reference Range Interpretation Comments Neutrophils # (test code = Neutrophils 4.7 1.5-8.1 #) [address]07-17 08:33:00 Test Item Value Reference Range Interpretation Comments Lymphocytes # (test code = Lymphocytes 0.7 1.0-5.5 #) [address]07-17 08:33:00 Test Item Value Reference Range Interpretation Comments Monocytes # (test code 0.6 See_Comment [Aut omated message] The = Monocytes #) system which generated this result tra nsmitted reference range : <=0.8. The reference r vasile was not used to int erpret this result as normal/abnormal . [address]07-17 08:33:00 Test Item Value Reference Range Interpretation Comments WBC (test code = WBC) 6.0 3.7-10.[address]07-17 08:33:00 Test Item Value Reference Range Interpretation Comments RBC (test code = RBC) 2.91 4.20-5.40 [place] [address]-07-17 08:33:00 Test Item Value Reference Range Interpretation Comments Hgb (test code = Hgb) 8.3 12.0-16.0 [place] [address]-07-17 08:33:00 Test Item Value Reference Range Interpretation Comments Hct (test code = Hct) 25.8 36.0-48.0 [place] [address]-07-17 08:33:00 Test Item Value Reference Range Interpretation Comments MCV (test code = MCV) 88.5 80.0-98.0 [place] [address]-07-17 08:33:00 Test Item Value Reference Range Interpretation Comments MCH (test code = MCH) 28.6 pg 27.0-31.0 [place] [address]-07-17 08:33:00 Test Item Value Reference Range Interpretation Comments MCHC (test code = MCHC) 32.3 32.0-36.0 [place] 317483-07-17 08:33:00 Test Item Value Reference Range Interpretation Comments RDW (test code = RDW) 14.8 11.5-14.5 [place] 317483-07-17 08:33:00 Test Item Value Reference Range Interpretation Comments Platelet (test code = Platelet) 252 133-450 [facility]fof[facility]qxVCAMNNFJWO0260-02-64 08:33:00 Test Item Value Reference Range Interpretation Comments MPV (test code = MPV) 7.7 7.4-10.4 [place] [address]-07-17 08:33:00 Test Item Value Reference Range Interpretation Comments Segs (test code = Segs) 78.2 45.0-75.0 [place] [address]-07-17 08:33:00 Test Item Value Reference Range Interpretation Comments Lymphocytes (test code = Lymphocytes) 10.9 20.0-40.0 [place] [address]-07-17 08:33:00 Test Item Value Reference Range Interpretation Comments Monocytes (test code = Monocytes) 10.1 2.0-12.0 [place] [address]-07-17 08:33:00 Test Item Value Reference Range Interpretation Comments Eosinophils (test code = 0.5 See_Comment [A utomated message] The Eosinophils) system which ge nerated this result tra nsmitted reference range : <=4.0. The reference r vasile was not used to int erpret this result as normal/abnormal . [place] [address]-07-17 08:33:00 Test Item Value Reference Range Interpretation Comments Basophils (test code = 0.3 See_Comment [Aut omated message] The Basophils) system which ge nerated this result tra nsmitted reference range : <=1.0. The reference r vasile was not used to int erpret this result as normal/abnormal . [place] [address]-07-17 08:33:00 Test Item Value Reference Range Interpretation Comments Neutrophils # (test code = Neutrophils 4.7 1.5-8.1 #) [place] [address]-07-17 08:33:00 Test Item Value Reference Range Interpretation Comments Lymphocytes # (test code = Lymphocytes 0.7 1.0-5.5 #) [place] [address]-07-17 08:33:00 Test Item Value Reference Range Interpretation Comments Monocytes # (test code 0.6 See_Comment [Aut omated message] The = Monocytes #) system which generated this result tra nsmitted reference range : <=0.8. The reference r vasile was not used to int erpret this result as normal/abnormal . [place] 317483-07-17 08:33:00 Test Item Value Reference Range Interpretation Comments WBC (test code = WBC) 6.0 3.7-10.4 [place] [address]-07-17 08:33:00 Test Item Value Reference Range Interpretation Comments RBC (test code = RBC) 2.91 4.20-5.40 [place] [address]-07-17 08:33:00 Test Item Value Reference Range Interpretation Comments Hgb (test code = Hgb) 8.3 12.0-16.0 [place] [address]-07-17 08:33:00 Test Item Value Reference Range Interpretation Comments Hct (test code = Hct) 25.8 36.0-48.0 [place] [address]-07-17 08:33:00 Test Item Value Reference Range Interpretation Comments MCV (test code = MCV) 88.5 80.0-98.0 [address]07-17 08:33:00 Test Item Value Reference Range Interpretation Comments MCH (test code = MCH) 28.6 pg 27.0-31.0 [place] [address]-07-17 08:33:00 Test Item Value Reference Range Interpretation Comments MCHC (test code = MCHC) 32.3 32.0-36.0 [place] [address]-07-17 08:33:00 Test Item Value Reference Range Interpretation Comments RDW (test code = RDW) 14.8 11.5-14.[address]07-17 08:33:00 Test Item Value Reference Range Interpretation Comments Platelet (test code = Platelet) 252 133-450 [place] [address]-07-17 08:33:00 Test Item Value Reference Range Interpretation Comments MPV (test code = MPV) 7.7 7.4-10.[address]07-17 08:33:00 Test Item Value Reference Range Interpretation Comments Glucose Lvl (test code = Glucose Lvl) 99 70-99 [place] [address]-07-17 08:33:00 Test Item Value Reference Range Interpretation Comments BUN (test code = BUN) 20 7-22 [place] [address]-07-17 08:33:00 Test Item Value Reference Range Interpretation Comments Creatinine Lvl (test code = Creatinine 0.62 0.50-1.40 Lvl) [place] [address]-07-17 08:33:00 Test Item Value Reference Range Interpretation Comments Sodium Lvl (test code = Sodium Lvl) 135 135-145 [place] [address]-07-17 08:33:00 Test Item Value Reference Range Interpretation Comments Potassium Lvl (test code = Potassium 4.3 3.5-5.1 Lvl) [place] [address]-07-17 08:33:00 Test Item Value Reference Range Interpretation Comments Chloride Lvl (test code = Chloride Lvl) 100 95-109 [place] [address]-07-17 08:33:00 Test Item Value Reference Range Interpretation Comments CO2 (test code = CO2) 30 24-32 [place] [address]-07-17 08:33:00 Test Item Value Reference Range Interpretation Comments Calcium Lvl (test code = Calcium Lvl) 9.2 8.5-10.5 [facility]2023-07-17 08:33:00 Test Item Value Reference Range Interpretation Comments AGAP (test code = AGAP) 9.3 10.0-20.0 [place] 643033-07-17 08:33:00 Test Item Value Reference Range Interpretation Comments eGFR (test code = eGFR) 93 [place] 831353-07-17 08:33:00 Test Item Value Reference Range Interpretation Comments Glucose Lvl (test code = Glucose Lvl) 99 70-99 [place] [address]-07-17 08:33:00 Test Item Value Reference Range Interpretation Comments BUN (test code = BUN) 20 - [place] 831353-07-17 08:33:00 Test Item Value Reference Range Interpretation Comments Creatinine Lvl (test code = Creatinine 0.62 0.50-1.40 Lvl) [place] 831353-07-17 08:33:00 Test Item Value Reference Range Interpretation Comments Sodium Lvl (test code = Sodium Lvl) 135 135-145 [place] 643033-07-16 09:32:00 Test Item Value Reference Range Interpretation Comments Glucose Lvl (test code = Glucose Lvl) 97 70-99 [facility]2023-07-16 09:32:00 Test Item Value Reference Range Interpretation Comments BUN (test code = BUN) 21 04-01 [facility]2023-07-16 09:32:00 Test Item Value Reference Range Interpretation Comments Creatinine Lvl (test code = Creatinine 0.62 0.50-1.40 Lvl) [facility]2023-07-16 09:32:00 Test Item Value Reference Range Interpretation Comments Sodium Lvl (test code = Sodium Lvl) 137 135-145 [place] 643033-07-16 09:32:00 Test Item Value Reference Range Interpretation Comments Potassium Lvl (test code = Potassium 4.5 3.5-5.1 Lvl) [place] 643033-07-16 09:32:00 Test Item Value Reference Range Interpretation Comments Chloride Lvl (test code = Chloride Lvl) 104 95-109 [place] 643033-07-16 09:32:00 Test Item Value Reference Range Interpretation Comments CO2 (test code = CO2) 27 24-32 [facility]2023-07-16 09:32:00 Test Item Value Reference Range Interpretation Comments Calcium Lvl (test code = Calcium Lvl) 8.7 8.5-10.5 [place] 643033-07-16 09:32:00 Test Item Value Reference Range Interpretation Comments AGAP (test code = AGAP) 10.5 10.0-20.0 [facility]2023-07-16 09:32:00 Test Item Value Reference Range Interpretation Comments eGFR (test code = eGFR) 94 [facility]ibwqcpVHNVEJULCW9912-00-04 09:32:00 Test Item Value Reference Range Interpretation Comments WBC (test code = WBC) 4.9 3.7-10.4 [place] 317483-07-16 09:32:00 Test Item Value Reference Range Interpretation Comments RBC (test code = RBC) 2.79 4.20-5.40 [facility]oundLwfbmisMEHGCHOJUM0500-79-63 09:32:00 Test Item Value Reference Range Interpretation Comments Hgb (test code = Hgb) 8.1 12.0-16.0 [facility]oundFqztdroESFFQLFONI9878-03-68 09:32:00 Test Item Value Reference Range Interpretation Comments Hct (test code = Hct) 24.8 36.0-48.0 [facility]oundEnhprsmHRRHYLQIDL1089-49-54 09:32:00 Test Item Value Reference Range Interpretation Comments MCV (test code = MCV) 89.1 80.0-98.0 [facility]oundXolwgtaYEGHZFORDI2313-23-59 09:32:00 Test Item Value Reference Range Interpretation Comments MCH (test code = MCH) 29.1 pg 27.0-31.0 [place] 317483-07-16 09:32:00 Test Item Value Reference Range Interpretation Comments MCHC (test code = MCHC) 32.7 32.0-36.0 [place] 317483-07-16 09:32:00 Test Item Value Reference Range Interpretation Comments RDW (test code = RDW) 14.7 11.5-14.5 [place] 317483-07-16 09:32:00 Test Item Value Reference Range Interpretation Comments Platelet (test code = Platelet) 207 133-450 [place] 317483-07-16 09:32:00 Test Item Value Reference Range Interpretation Comments MPV (test code = MPV) 7.9 7.4-10.4 [place] [address]-07-16 09:32:00 Test Item Value Reference Range Interpretation Comments Segs (test code = Segs) 70.2 45.0-75.0 [place] 317483-07-16 09:32:00 Test Item Value Reference Range Interpretation Comments Lymphocytes (test code = Lymphocytes) 14.6 20.0-40.0 [place] [address]-07-16 09:32:00 Test Item Value Reference Range Interpretation Comments Monocytes (test code = Monocytes) 11.9 2.0-12.0 [place] [address]-07-16 09:32:00 Test Item Value Reference Range Interpretation Comments Eosinophils (test code = 2.5 See_Comment [A utomated message] The Eosinophils) system which ge nerated this result tra nsmitted reference range : <=4.0. The reference r vasile was not used to int erpret this result as normal/abnormal . [place] [address]-07-16 09:32:00 Test Item Value Reference Range Interpretation Comments Basophils (test code = 0.8 See_Comment [Aut omated message] The Basophils) system which ge nerated this result tra nsmitted reference range : <=1.0. The reference r vasile was not used to int erpret this result as normal/abnormal . [facility]oundVapucxwQPTAZKQOJL5656-05-14 09:32:00 Test Item Value Reference Range Interpretation Comments Neutrophils # (test code = Neutrophils 3.4 1.5-8.1 #) [place] 317483-07-16 09:32:00 Test Item Value Reference Range Interpretation Comments Lymphocytes # (test code = Lymphocytes 0.7 1.0-5.5 #) [place] [address]-07-16 09:32:00 Test Item Value Reference Range Interpretation Comments Monocytes # (test code 0.6 See_Comment [Aut omated message] The = Monocytes #) system which generated this result tra nsmitted reference range : <=0.8. The reference r vasile was not used to int erpret this result as normal/abnormal . [place] [address]-07-16 09:32:00 Test Item Value Reference Range Interpretation Comments Eosinophils # (test code 0.1 See_Comment [A utomated message] The = Eosinophils #) system AMKAI generated this result tra nsmitted reference range : <=0.5. The reference r vasile was not used to int erpret this result as normal/abnormal . [place] 317483-07-16 09:32:00 Test Item Value Reference Range Interpretation Comments Eosinophils # (test code 0.1 See_Comment [A utomated message] The = Eosinophils #) system AMKAI generated this result tra nsmitted reference range : <=0.5. The reference r vasile was not used to int erpret this result as normal/abnormal . [facility] WELSH0476-06-02 08:40:00 Test Item Value Reference Range Interpretation Comments Glucose Lvl (test code = Glucose Lvl) 92 70-99 [facility] OBBYU9357[facility]04-74 08:40:00 Test Item Value Reference Range Interpretation Comments BUN (test code = BUN) 24 7-22 [facility] TTXKF5167-80-76 08:40:00 Test Item Value Reference Range Interpretation Comments Creatinine Lvl (test code = Creatinine 0.59 0.50-1.40 Lvl) [facility] PYHPW3954-43-61 08:40:00 Test Item Value Reference Range Interpretation Comments Sodium Lvl (test code = Sodium Lvl) 139 135-145 [facility] APYKZ4621-71-69 08:40:00 Test Item Value Reference Range Interpretation Comments Potassium Lvl (test code = Potassium 4.3 3.5-5.1 Lvl) [facility] MJGER9062-38-69 08:40:00 Test Item Value Reference Range Interpretation Comments Chloride Lvl (test code = Chloride Lvl) 108 95-109 [facility] XEFIP1920-73-30 08:40:00 Test Item Value Reference Range Interpretation Comments CO2 (test code = CO2) 28 24-32 [facility] TCXAM3964-84-06 08:40:00 Test Item Value Reference Range Interpretation Comments AGAP (test code = AGAP) 7.3 10.0-20.0 [facility] LAXHD5658-50-62 08:40:00 Test Item Value Reference Range Interpretation Comments Calcium Lvl (test code = Calcium Lvl) 8.7 8.5-10.5 [facility]2023-07-15 08:40:00 Test Item Value Reference Range Interpretation Comments eGFR (test code = eGFR) 94 [place] [address]-07-15 08:40:00 Test Item Value Reference Range Interpretation Comments Segs (test code = Segs) 67.2 45.0-75.0 [place] [address]-07-15 08:40:00 Test Item Value Reference Range Interpretation Comments Lymphocytes (test code = Lymphocytes) 18.0 20.0-40.0 [place] [address]-07-15 08:40:00 Test Item Value Reference Range Interpretation Comments Monocytes (test code = Monocytes) 10.3 2.0-12.0 [place] [address]-07-15 08:40:00 Test Item Value Reference Range Interpretation Comments Eosinophils (test code = 3.7 See_Comment [A utomated message] The Eosinophils) system which ge nerated this result tra nsmitted reference range : <=4.0. The reference r vasile was not used to int erpret this result as normal/abnormal . [place] [address]-07-15 08:40:00 Test Item Value Reference Range Interpretation Comments Basophils (test code = 0.8 See_Comment [Aut omated message] The Basophils) system which ge nerated this result tra nsmitted reference range : <=1.0. The reference r vasile was not used to int erpret this result as normal/abnormal . [place] [address]-07-15 08:40:00 Test Item Value Reference Range Interpretation Comments Neutrophils # (test code = Neutrophils 3.0 1.5-8.1 #) [place] [address]-07-15 08:40:00 Test Item Value Reference Range Interpretation Comments Lymphocytes # (test code = Lymphocytes 0.8 1.0-5.5 #) [address]07-15 08:40:00 Test Item Value Reference Range Interpretation Comments Monocytes # (test code 0.5 See_Comment [Aut omated message] The = Monocytes #) system which generated this result tra nsmitted reference range : <=0.8. The reference r vasile was not used to int erpret this result as normal/abnormal . [place] [address]-07-15 08:40:00 Test Item Value Reference Range Interpretation Comments Eosinophils # (test code 0.2 See_Comment [A utomated message] The = Eosinophils #) system whic h generated this result tra nsmitted reference range : <=0.5. The reference r vasile was not used to int erpret this result as normal/abnormal . [facility]oundKmjqhuhXSAJPHOFJU6372-34-87 08:40:00 Test Item Value Reference Range Interpretation Comments Sed Rate (test code = 81 See_Comment [Auto mated message] The Sed Rate) system which ge nerated this result transmit timmy reference range : <=20. The reference range was not used to interpr et this result as katja l/abnormal. [facility]oundNmfqubqDUYOGAZQSK3904-73-20 08:40:00 Test Item Value Reference Range Interpretation Comments WBC (test code = WBC) 4.5 3.7-10.4 [facility]oundDoahnhzPEILVFOWWU4877-19-40 08:40:00 Test Item Value Reference Range Interpretation Comments RBC (test code = RBC) 3.07 4.20-5.40 [facility]oundLarpyazVXIUUVSZQM8061-09-75 08:40:00 Test Item Value Reference Range Interpretation Comments Hgb (test code = Hgb) 9.0 12.0-16.0 [facility]oundZdawdzdDTNKYPCQIL3109-37-52 08:40:00 Test Item Value Reference Range Interpretation Comments Hct (test code = Hct) 27.2 36.0-48.0 [facility]oundOuxpxspAYUQCYVYBH6268-34-11 08:40:00 Test Item Value Reference Range Interpretation Comments MCV (test code = MCV) 88.5 80.0-98.0 [facility]oundEvinzzgQBOSOOORTQ3702-59-04 08:40:00 Test Item Value Reference Range Interpretation Comments MCH (test code = MCH) 29.2 pg 27.0-31.0 [facility]oundWgzhfylMBEMWWUXWC0626-35-94 08:40:00 Test Item Value Reference Range Interpretation Comments MCHC (test code = MCHC) 33.0 32.0-36.0 [facility]oundAxtakkvHWXOYZCNMO2689-59-69 08:40:00 Test Item Value Reference Range Interpretation Comments RDW (test code = RDW) 15.2 11.5-14.5 [facility]oundZshsdtqNXCYBQLLPO3739-54-67 08:40:00 Test Item Value Reference Range Interpretation Comments Platelet (test code = Platelet) 176 133-450 [facility]oundVlmrdpxTPDEREDNCI3406-06-49 08:40:00 Test Item Value Reference Range Interpretation Comments MPV (test code = MPV) 7.6 7.4-10.4 [facility]oundRogcdnePJKLXBDEJC5565-61-70 08:40:00 Test Item Value Reference Range Interpretation Comments Sed Rate (test code = 81 See_Comment [Auto mated message] The Sed Rate) system which ge nerated this result transmit timmy reference range : <=20. The reference range was not used to interpr et this result as katja l/abnormal. [facility]2023-07-15 03:41:00 Test Item Value Reference Range Interpretation Comments Folate Lvl (test code = Folate Lvl) 9.5 [facility]2023-07-15 03:41:00 Test Item Value Reference Range Interpretation Comments Vitamin B12 Lvl (test code = Vitamin 427 B12 Lvl) [facility] HospitalYwxkbocBZDNTBKZL9491-46-81 03:41:00 Test Item Value Reference Range Interpretation Comments Folate Lvl (test code = Folate Lvl) 9.5 [facility] HospitalNjhzhdrGJLKPIRQQ9479-36-38 03:41:00 Test Item Value Reference Range Interpretation Comments Vitamin B12 Lvl (test code = Vitamin 905 669-1919 B12 Lvl) [facility] CenterBdhwiceFJFIBBCLFU3158-71-24 03:41:00 Test Item Value Reference Range Interpretation Comments ARIES (test code = ARIES) POSITIVE [place] 781993-07-15 03:41:00 Test Item Value Reference Range Interpretation Comments Treponemal Ab (test code Non-Reactive = Treponemal Ab) *NA*(03/24/23 10:41 PM) [place] 781993-07-15 03:41:00 Test Item Value Reference Range Interpretation Comments ARIES Titer (test code = ARIES Titer) 1:80 [place] [address]-07-15 03:41:00 Test Item Value Reference Range Interpretation Comments ARIES Pattern (test code = ARIES Cytoplasmic Pattern) [place] 781993-07-15 03:41:00 Test Item Value Reference Range Interpretation Comments DNA Ab (DS) (test code = DNA Ab (DS)) no gt [facility] CenterDxdpkbxTQXDQKPSBV1917-42-13 03:41:00 Test Item Value Reference Range Interpretation Comments Sm Ab (test code = Sm Ab) <1.0 NEG [facility] CenterMwwnluiSCCGCMHBSV2977-26-25 03:41:00 Test Item Value Reference Range Interpretation Comments SM/CIRCULAR KNITTER HELPER (test code = SM/CIRCULAR KNITTER HELPER) <1.0 NEG [facility] CenterKpapkcuAQMFPHHXMA8130-30-01 03:41:00 Test Item Value Reference Range Interpretation Comments CIRCULAR KNITTER HELPER Ab (test code = CIRCULAR KNITTER HELPER Ab) <1.0 NEG [place] [address]-07-15 03:41:00 Test Item Value Reference Range Interpretation Comments Antichromatin Ab (test code = <1.0 NEG Antichromatin Ab) [place] [address]-07-15 03:41:00 Test Item Value Reference Range Interpretation Comments SS-A (Ro) Ab (test code = SS-A (Ro) <1.0 NEG Ab) [place] [address]-07-15 03:41:00 Test Item Value Reference Range Interpretation Comments SS-B (La) Ab (test code = SS-B (La) <1.0 NEG Ab) [facility] CenterLhdrnaiXBPIVNYHBG3542-98-56 03:41:00 Test Item Value Reference Range Interpretation Comments SCL- 70 Ab (test code = SCL- 70 Ab) <1.0 NEG [place] 781993-07-15 03:41:00 Test Item Value Reference Range Interpretation Comments DANIELLE-1 Ab (test code = DANIELLE-1 Ab) <1.0 NEG [place] [address]-07-15 03:41:00 Test Item Value Reference Range Interpretation Comments Centromere B Ab (test code = <1.0 NEG Centromere B Ab) [facility] CenterAxzgcraQKNGAHVLNQ9148-00-24 03:41:00 Test Item Value Reference Range Interpretation Comments Ribosomal P Protein Antibody (test <1.0 NEG code = Ribosomal P Protein Antibody) [place] [address]-07-15 03:41:00 Test Item Value Reference Range Interpretation Comments ARIES Interp (test code = ARIES Interp) SEE NOTE [facility] CenterSvirdlrQHJSPJFHSP3718-42-96 03:41:00 Test Item Value Reference Range Interpretation Comments ARIES (test code = ARIES) POSITIVE [place] [address]-07-15 03:41:00 Test Item Value Reference Range Interpretation Comments Treponemal Ab (test code Non-Reactive = Treponemal Ab) *NA*(03/24/23 10:41 PM) [facility] CenterCjaaorcBSVAUOADMK3741-27-18 03:41:00 Test Item Value Reference Range Interpretation Comments ARIES Titer (test code = ARIES Titer) 1:80 [place] [address]-07-15 03:41:00 Test Item Value Reference Range Interpretation Comments ARIES Pattern (test code = ARIES Cytoplasmic Pattern) [place] 781993-07-15 03:41:00 Test Item Value Reference Range Interpretation Comments DNA Ab (DS) (test code = DNA Ab (DS)) no gt [facility] CenterUthagymCBDECUJGJF3489-96-64 03:41:00 Test Item Value Reference Range Interpretation Comments Sm Ab (test code = Sm Ab) <1.0 NEG [place] [address]-07-15 03:41:00 Test Item Value Reference Range Interpretation Comments SM/CIRCULAR KNITTER HELPER (test code = SM/CIRCULAR KNITTER HELPER) <1.0 NEG [place] 781993-07-15 03:41:00 Test Item Value Reference Range Interpretation Comments CIRCULAR KNITTER HELPER Ab (test code = CIRCULAR KNITTER HELPER Ab) <1.0 NEG [place] [address]-07-15 03:41:00 Test Item Value Reference Range Interpretation Comments Antichromatin Ab (test code = <1.0 NEG Antichromatin Ab) [facility] CenterXhufxliANRTRPLHCF6083-32-29 03:41:00 Test Item Value Reference Range Interpretation Comments SS-A (Ro) Ab (test code = SS-A (Ro) <1.0 NEG Ab) [place] [address]1993-07-15 03:41:00 Test Item Value Reference Range Interpretation Comments SS-B (La) Ab (test code = SS-B (La) <1.0 NEG Ab) [facility] CenterRmfwephKOKETYDCIB9751-85-08 03:41:00 Test Item Value Reference Range Interpretation Comments SCL- 70 Ab (test code = SCL- 70 Ab) <1.0 NEG [place] [address]-07-15 03:41:00 Test Item Value Reference Range Interpretation Comments DANIELLE-1 Ab (test code = DANIELLE-1 Ab) <1.0 NEG [place] [address]-07-15 03:41:00 Test Item Value Reference Range Interpretation Comments Centromere B Ab (test code = <1.0 NEG Centromere B Ab) [place] [address]-07-15 03:41:00 Test Item Value Reference Range Interpretation Comments Ribosomal P Protein Antibody (test <1.0 NEG code = Ribosomal P Protein Antibody) [facility] HospitalDqutyuiROXUCDKKGH4183-86-86 03:41:00 Test Item Value Reference Range Interpretation Comments ARIES Interp (test code = ARIES Interp) SEE NOTE [facility] HospitalBeeorzgQXBNBSZXOQ3033-44-32 23:11:00 Test Item Value Reference Range Interpretation Comments HIV Ag/Ab 4th Gen Negative 2*NA*(03/24/23 (test code = HIV 6:11 PM) Ag/Ab 4th Gen) [facility] HospitalUozgpajLQOINUPIDE3262-96-64 23:11:00 Test Item Value Reference Range Interpretation Comments C-REACTIVE PROTEIN (test code = 94.3 C-REACTIVE PROTEIN) [facility] HospitalRpsejouSFYTCZAKOR4179-74-78 23:11:00 Test Item Value Reference Range Interpretation Comments HIV Ag/Ab 4th Gen Negative 3*NA*(03/24/23 (test code = HIV 6:11 PM) Ag/Ab 4th Gen) [facility] HospitalBqyvsiwTIMUHKAGFM9138-91-87 23:11:00 Test Item Value Reference Range Interpretation Comments C-REACTIVE PROTEIN (test code = 94.3 C-REACTIVE PROTEIN) [facility] HospitalWzinvgiLRGQZABUE3021-22-41 15:29:00 Test Item Value Reference Range Interpretation Comments T3 Free (test code = T3 Free) 1.42 2.18-3.98 [facility] HospitalAbcdwsaQBAFGMXVJK3345-80-66 09:34:00 Test Item Value Reference Range Interpretation Comments Eosinophils # (test code 0.1 See_Comment [A utomated message] The = Eosinophils #) system [facility] h generated this result tra nsmitted reference range : <=0.5. The reference r vasile was not used to int erpret this result as normal/abnormal . [facility] IULPF3349-93-33 09:48:00 Test Item Value Reference Range Interpretation Comments Total Protein (test code = Total 5.9 6.4-8.4 Protein) [facility] HospitalB[facility] VEIGD7694-50-42 09:48:00 Test Item Value Reference Range Interpretation Comments Albumin Lvl (test code = Albumin Lvl) 2.6 3.5-5.0 [facility] JMWNG5992-48-20 09:48:00 Test Item Value Reference Range Interpretation Comments ALT (test code = ALT) 32 See_Comment [Auto mated message] The system which ge nerated this result transmit timmy reference range : <=65. The reference range was not used to interpr et this result as katja l/abnormal. [facility] YRCWH0152-45-97 09:48:00 Test Item Value Reference Range Interpretation Comments AST (test code = AST) 46 See_Comment [Auto mated message] The system which ge nerated this result transmit timmy reference range : <=37. The reference range was not used to interpr et this result as katja l/abnormal. [facility] OELOR4078-99-40 09:48:00 Test Item Value Reference Range Interpretation Comments Alk Phos (test code = Alk Phos) 98 39-136 [facility] [employer] RWSOW0510-69-94 09:48:00 Test Item Value Reference Range Interpretation Comments Bili Total (test code = Bili Total) 0.5 0.2-1.3 [facility] PRMFH6831-96-33 09:48:00 Test Item Value Reference Range Interpretation Comments B/C Ratio (test code = B/C Ratio) 30 1 6-25 [facility] XKARJ8443-23-99 09:48:00 Test Item Value Reference Range Interpretation Comments Globulin (test code = Globulin) 3.3 2.7-4.2 [facility] ACOFJ5094-78-88 09:48:00 Test Item Value Reference Range Interpretation Comments A/G Ratio (test code = A/G Ratio) 0.8 1 0.7-1.6 [place] [address]-07-13 09:48:00 Test Item Value Reference Range Interpretation Comments Total Protein (test code = Total 5.9 6.4-8.4 Protein) [place] [address]-07-13 09:48:00 Test Item Value Reference Range Interpretation Comments Albumin Lvl (test code = Albumin Lvl) 2.6 3.5-5.0 [place] [address]-07-13 09:48:00 Test Item Value Reference Range Interpretation Comments ALT (test code = ALT) 32 See_Comment [Auto mated message] The system which ge nerated this result transmit timmy reference range : <=65. The reference range was not used to interpr et this result as katja l/abnormal. [facility] SystemFepcophBOKNMBILR2046-12-92 09:48:00 Test Item Value Reference Range Interpretation Comments AST (test code = AST) 46 See_Comment [Auto mated message] The system which ge nerated this result transmit timmy reference range : <=37. The reference range was not used to interpr et this result as katja l/abnormal. [place]EbgqzwwDVONRYQUI8208-42-05 09:48:00 Test Item Value Reference Range Interpretation Comments Alk Phos (test code = Alk Phos) 98 39-136 [facility] JpydbenDESVJAMTT0722-54-73 09:48:00 Test Item Value Reference Range Interpretation Comments Bili Total (test code = Bili Total) 0.5 0.2-1.3 [facility] VrwxprwVUZOVMXRW1344-17-42 09:48:00 Test Item Value Reference Range Interpretation Comments B/C Ratio (test code = B/C Ratio) 30 1 6-25 [facility] BmqnrydLELLJKZDR1062-42-55 09:48:00 Test Item Value Reference Range Interpretation Comments Globulin (test code = Globulin) 3.3 2.7-4.2 [facility] OqlqowtWEEZCMDCM5330-03-57 09:48:00 Test Item Value Reference Range Interpretation Comments A/G Ratio (test code = A/G Ratio) 0.8 1 0.7-1.6 [facility] [employer]CARDIAC JAOYXVX2449-83-82 04:40:00 Test Item Value Reference Range Interpretation Comments HS Troponin I (test code = HS Troponin 6 I) [facility] OyqdsydCODOTUSHV8878-16-07 04:40:00 Test Item Value Reference Range Interpretation Comments HS Troponin I (test code = HS Troponin 6 I) [facility] [employer] QUFJPTM2476-70-85 23:23:00 Test Item Value Reference Range Interpretation Comments RBC product (test code Product available = RBC product) 6(03/22/23 6:23 PM) [employer] QNMKQOY2182-53-92 23:23:00 Test Item Value Reference Range Interpretation Comments RBC product (test code Product available = RBC product) 5(03/22/23 6:23 PM) [employer] MPMAD5114-14-37 10:22:00 Test Item Value Reference Range Interpretation Comments B/C Ratio (test code = B/C Ratio) 27 1 6-25 [employer] EWKYX3509-37-59 10:22:00 Test Item Value Reference Range Interpretation Comments Total Protein (test code = Total 5.7 6.4-8.4 Protein) [facility]2023-07-12 10:22:00 Test Item Value Reference Range Interpretation Comments Albumin Lvl (test code = Albumin Lvl) 2.6 3.5-5.0 [facility]2023-07-12 10:22:00 Test Item Value Reference Range Interpretation Comments Globulin (test code = Globulin) 3.1 2.7-4.2 [facility]2023-07-12 10:22:00 Test Item Value Reference Range Interpretation Comments A/G Ratio (test code = A/G Ratio) 0.8 1 0.7-1.6 [facility]2023-07-12 10:22:00 Test Item Value Reference Range Interpretation Comments ALT (test code = ALT) 26 See_Comment [Auto mated message] The system which ge nerated this result transmit timmy reference range : <=65. The reference range was not used to interpr et this result as katja l/abnormal. [facility]2023-07-12 10:22:00 Test Item Value Reference Range Interpretation Comments AST (test code = AST) 39 See_Comment [Auto mated message] The system which ge nerated this result transmit timmy reference range : <=37. The reference range was not used to interpr et this result as katja l/abnormal. [facility]2023-07-12 10:22:00 Test Item Value Reference Range Interpretation Comments Alk Phos (test code = Alk Phos) 67 39-136 [facility]2023-07-12 10:22:00 Test Item Value Reference Range Interpretation Comments Bili Total (test code = Bili Total) 0.3 0.2-1.3 [facility] UKHYGOJ6537-61-65 13:10:00 Test Item Value Reference Range Interpretation Comments RBC product (test code Product available = RBC product) (03/21/23 8:10 AM) [facility]2023-07-11 08:28:00 Test Item Value Reference Range Interpretation Comments B/C Ratio (test code = B/C Ratio) 26 1 6-25 [facility]2023-07-11 08:28:00 Test Item Value Reference Range Interpretation Comments Total Protein (test code = Total 5.8 6.4-8.4 Protein) [address]07-11 08:28:00 Test Item Value Reference Range Interpretation Comments Albumin Lvl (test code = Albumin Lvl) 2.9 3.5-5.0 [place] [address]-07-11 08:28:00 Test Item Value Reference Range Interpretation Comments Globulin (test code = Globulin) 2.9 2.7-4.2 [place] [address]-07-11 08:28:00 Test Item Value Reference Range Interpretation Comments A/G Ratio (test code = A/G Ratio) 1.0 1 0.7-1.[address]07-11 08:28:00 Test Item Value Reference Range Interpretation Comments ALT (test code = ALT) 17 See_Comment [Auto mated message] The system which ge nerated this result transmit timmy reference range : <=65. The reference range was not used to interpr et this result as katja l/abnormal. [facility] [id number] 08:28:00 Test Item Value Reference Range Interpretation Comments AST (test code = AST) 15 See_Comment [Auto mated message] The system which ge nerated this result transmit timmy reference range : <=37. The reference range was not used to interpr et this result as katja l/abnormal. [place] [address]-07-11 08:28:00 Test Item Value Reference Range Interpretation Comments Alk Phos (test code = Alk Phos) 56 39-136 [facility] [id number] 08:28:00 Test Item Value Reference Range Interpretation Comments Bili Total (test code = Bili Total) 0.8 0.2-1.3 [place] [address]-07-11 08:28:00 Test Item Value Reference Range Interpretation Comments Basophils # (test code 0.1 See_Comment [Aut omated message] The = Basophils #) system which generated this result tra nsmitted reference range : <=0.2. The reference r vasile was not used to int erpret this result as normal/abnormal . [facility] HospitalZvbubthVSWTYVLJSH4420-41-19 08:28:00 Test Item Value Reference Range Interpretation Comments Basophils # (test code 0.1 See_Comment [Aut omated message] The = Basophils #) system which generated this result tra nsmitted reference range : <=0.2. The reference r vasile was not used to int erpret this result as normal/abnormal . [facility] DBOKCDV7506-95-20 14:08:00 Test Item Value Reference Range Interpretation Comments RBC product (test code Product available = RBC product) (03/20/23 9:08 AM) [facility] HospitalTeianynHBYEALMZZ1956-77-81 13:41:00 Test Item Value Reference Range Interpretation Comments TSH (test code = TSH) 6.450 0.360-3.740 [facility] HospitalOcasqlhJFAVPCZFA2199-98-20 13:41:00 Test Item Value Reference Range Interpretation Comments T4 Free (test code = T4 Free) 0.83 0.76-1.46 [facility]oundRcweabsLCCDPSERGC4700-18-85 13:41:00 Test Item Value Reference Range Interpretation Comments RBC Morph (test code = Normal (03/20/23 8:41 RBC Morph) AM) [facility]oundYgohlynKVTIOGZXLP9711-31-58 13:41:00 Test Item Value Reference Range Interpretation Comments Plt Morph (test code = Normal (03/20/23 8:41 Plt Morph) AM) [facility]oundFbhofwnGHAEDVEYYO7100-26-19 13:41:00 Test Item Value Reference Range Interpretation Comments RBC Morph (test code = Normal (03/20/23 8:41 RBC Morph) AM) [facility]oundGxkycygDOPCUXWFJO5311-38-84 13:41:00 Test Item Value Reference Range Interpretation Comments Plt Morph (test code = Normal (03/20/23 8:41 Plt Morph) AM) [facility]2023-07-10 10:50:00 Test Item Value Reference Range Interpretation Comments Glucose POC (test code = Glucose POC) 94 70-99 [facility] RRHSB4922-67-80 21:04:00 Test Item Value Reference Range Interpretation Comments Vitamin D, 25-OH, Total (test code = 32 Vitamin D, 25-OH, Total) [facility] HospitalUfcioquUFPNSJOAA1238-52-58 21:04:00 Test Item Value Reference Range Interpretation Comments Vitamin D, 25-OH, Total (test code = 32 30-100 Vitamin D, 25-OH, Total) [facility] HospitalItnboofVESQYSOHO1318-16-83 21:04:00 Test Item Value Reference Range Interpretation Comments PTH Intact (test code = PTH Intact) 55.2 18.4-80.1 [facility] ElodiaannPARATHYROID DGXAWQF0288-88-95 21:04:00 Test Item Value Reference Range Interpretation Comments PTH Intact (test code = PTH Intact) 55.2 18.4-80.1 [facility] UlnowwtDFKPDR1596-19-00 17:25:57 Test Item Value Reference Range Interpretation Comments RADRPT (test code PROCEDURE INFORMATION: Exam: = RADRPT) XR Chest Exam date and time: 03/19/2023 10:58 AM Age: 73 years old Clinical indication: /fall TECHNIQUE: Imaging protocol: Radiologic exam of the chest. Views: 1 view. COMPARISON: No relevant prior studies available. FINDINGS: Lungs: Mild decreased lung volumes. Left basilar opacities. Scattered pleuroparenchymal scarring.Pleural spaces: No pleural effusion. No pneumothorax. Heart/Mediastinum: Heart size is mildly enlarged. Vasculature is congested. Bones/joints: No acute osseous abnormalities. IMPRESSION: Mild cardiomegaly with pulmonary venous congestion.Left basilar opacities may represent atelectasis and/or consolidation. Matthew Curry MD On 03/19/2023 12:24:50; [id number] [facility] [employer] [id number] 15:53:00 Test Item Value Reference Range Interpretation Comments ABO/Rh (test code = ABO/Rh) A NEG [facility] [employer] RCXPTZQ4047-74-90 15:53:00 Test Item Value Reference Range Interpretation Comments Antibody Scrn (test Positive 8(03/19/23 code = Antibody Scrn) 10:53 AM) [facility] [employer] [id number] 15:53:00 Test Item Value Reference Range Interpretation Comments AB Int (test code = AB Int) Anti-D [facility] [employer] BCTLYUW6296-83-34 15:53:00 Test Item Value Reference Range Interpretation Comments ABO/Rh (test code = ABO/Rh) A NEG [employer] PUOOHHK9118-40-85 15:53:00 Test Item Value Reference Range Interpretation Comments Antibody Scrn (test Positive 7(03/19/23 code = Antibody Scrn) 10:53 AM) [employer] SKMAEPE8563-19-16 15:53:00 Test Item Value Reference Range Interpretation Comments AB Int (test code = AB Int) Anti-D [facility]oundZnlxqxiEUFMCRMYJQ8161-35-72 15:52:00 Test Item Value Reference Range Interpretation Comments PT (test code = PT) 12.6 s 12.0-14.7 [facility]oundKlqhrhqRVHQFQBQWS8431-03-73 15:52:00 Test Item Value Reference Range Interpretation Comments PTT (test code = PTT) 31.7 s 22.9-35.8 [facility]oundOhgtbgvKSKICBYYCK3911-20-83 15:52:00 Test Item Value Reference Range Interpretation Comments INR (test code = INR) 0.94 1 0.87-1.13 [facility]oundXjcwyilUPXVDAXPWA3215-61-44 15:52:00 Test Item Value Reference Range Interpretation Comments PT (test code = PT) 12.6 s 12.0-14.7 [facility]oundQaxqpykEEJYPTUVEX7231-69-78 15:52:00 Test Item Value Reference Range Interpretation Comments PTT (test code = PTT) 31.7 s 22.9-35.8 [facility]oundVcmpohcJLKCWPBETX3990-25-72 15:52:00 Test Item Value Reference Range Interpretation Comments INR (test code = INR) 0.94 1 0.87-1.13 [place] [id number] 15:47:07 Test Item Value Reference Range Interpretation Comments RADRPT (test code = PROCEDURE INFORMATION: RADRPT) Exam: XR Left Ankle Exam date and time: 03/19/2023 9:46 AM Age: 73 years old Clinical indication: /fall TECHNIQUE: Imaging protocol: Radiologic exam of the left ankle. Views: 3 or more views. AP Oblique Lateral COMPARISON: Left foot this date FINDINGS: AP, oblique and cross-table lateral images. Generalized osteopenia. Slight chronic deformity of the distal tibia likely secondary to healed fracture. No acute fracture. Normal ankle mortise. IMPRESSION: No acute osseous abnormality. Nahum Butler MD On 03/19/2023 10:45:46; [id number] [place] [id number] 15:44:40 Test Item Value Reference Range Interpretation Comments RADRPT (test code = PROCEDURE INFORMATION: RADRPT) Exam: XR Left Foot Exam date and time: 03/19/2023 9:49 AM Age: 73 years old Clinical indication: /fall TECHNIQUE: Imaging protocol: Radiologic exam of the left foot. Views: 3 or more views. AP Oblique Lateral COMPARISON: ANKLE 3 VIEWS DX, LEFT 03/19/2023 9:44 AM FINDINGS: AP, oblique and rotated lateral images, three views. Generalized osteopenia. No fracture or dislocation. IMPRESSION: No acute abnormality. Nahum Butler MD On 03/19/2023 10:44:04; [id number] [facility] [id number] 15:42:07 Test Item Value Reference Range Interpretation Comments RADRPT (test code PROCEDURE INFORMATION: Exam: = RADRPT) XR Left Femur Exam date and time: 03/19/2023 9:42 AM Age: 73 years old Clinical indication: /fall TECHNIQUE: Imaging protocol: Radiologic exam of the left femur. Views: 2 views. COMPARISON: HIP 2-3 VIEWS UNI DX, LEFT 03/19/2023 9:32 AM FINDINGS: Bones/joints: Acute comminuted intertrochanteric fracture of the proximal left femur. Major fracture fragments are in near anatomic alignment. The acetabulum is unremarkable. Tricompartmental degenerative changes of the knee. No knee fracture. Soft tissues: There are no radio-opaque foreign bodies. Notes: If there is further concern, recommend follow-up radiographs or MRI for complete assessment. IMPRESSION: Acute comminuted intertrochanteric fracture of the proximal left femur.Omer Almeida MD On 03/19/2023 10:40:51; [id number] [facility] [id number] 15:35:52 Test Item Value Reference Range Interpretation Comments RADRPT (test code PROCEDURE INFORMATION: Exam: = RADRPT) XR Left Hip Exam date and time: 03/19/2023 9:32 AM Age: 73 years old Clinical indication: /fall TECHNIQUE: Imaging protocol: Radiologic exam of the left hip. Views: 2 or 3 views hip with pelvis when performed. AP 1 view pelvis with 2 views hip COMPARISON: No relevant prior studies available. FINDINGS: Bones/joints: Acute comminuted intertrochanteric fracture of the proximal left femur. Major fracture fragments are in near anatomic alignment. The acetabulum is unremarkable. The visualized sacroiliac joint and symphysis pubis are unremarkable. Soft tissues: There are no radio-opaque foreign bodies. Notes: If there is further concern, recommend follow-up radiographs or MRI for complete assessment. IMPRESSION: Acute comminuted intertrochanteric fracture of the proximal left femur.Omer Almeida MD On 03/19/2023 10:34:32; [id number] [facility]2023-07-09 13:35:00 Test Item Value Reference Range Interpretation Comments Gluc POC Comment 1 (test code Notified RN/MD = Gluc POC Comment 1) [facility]2023-07-09 13:35:00 Test Item Value Reference Range Interpretation Comments Gluc POC Comment 2 (test code = Cleaned Meter Gluc POC Comment 2) [facility] W/PLT COUNT & AUTO [id number] 05:48:00 Test Item Value Reference Range Interpretation Comments WHITE BLOOD CELL COUNT (BEAKER) 7.2 K/ L 3.5-10.5 (test code = 775) RED BLOOD CELL COUNT (BEAKER) 3.09 M/ L 3.93-5.22 L (test code = 761) HEMOGLOBIN (BEAKER) (test code = 5.9 GM/DL 11.2-15.7 LL 410) HEMATOCRIT (BEAKER) (test code = 21.4 % 34.1-44.9 L 411) MEAN CORPUSCULAR VOLUME (BEAKER) 69.3 fL 79.4-94.8 L (test code = 753) MEAN CORPUSCULAR HEMOGLOBIN 19.1 pg 25.6-32.2 L (BEAKER) (test code = 751) MEAN CORPUSCULAR HEMOGLOBIN CONC 27.6 GM/DL 32.2-35.5 L (BEAKER) (test code = 752) RED CELL DISTRIBUTION WIDTH 22.3 % 11.7-14.4 H (BEAKER) (test code = 412) PLATELET COUNT (BEAKER) (test 379 K/CU MM 150-450 code = 756) MEAN PLATELET VOLUME (BEAKER) 9.7 fL 9.4-12.3 (test code = 754) NUCLEATED RED BLOOD CELLS 0 /100 WBC 0-0 (BEAKER) (test code = 413) NEUTROPHILS RELATIVE PERCENT 67 % (BEAKER) (test code = 429) LYMPHOCYTES RELATIVE PERCENT 17 % (BEAKER) (test code = 430) MONOCYTES RELATIVE PERCENT 10 % (BEAKER) (test code = 431) EOSINOPHILS RELATIVE PERCENT 4 % (BEAKER) (test code = 432) BASOPHILS RELATIVE PERCENT 1 % (BEAKER) (test code = 437) NEUTROPHILS ABSOLUTE COUNT 4.84 K/ L 1.56-6.13 (BEAKER) (test code = 670) LYMPHOCYTES ABSOLUTE COUNT 1.25 K/ L 1.18-3.74 (BEAKER) (test code = 414) MONOCYTES ABSOLUTE COUNT (BEAKER) 0.75 K/ L 0.24-0.36 H (test code = 415) EOSINOPHILS ABSOLUTE COUNT 0.27 K/ L 0.04-0.36 (BEAKER) (test code = 416) BASOPHILS ABSOLUTE COUNT (BEAKER) 0.04 K/ L 0.01-0.08 (test code = 417) IMMATURE GRANULOCYTES-RELATIVE 0 % 0-1 PERCENT (BEAKER) (test code = 2801) BASIC METABOLIC [id number] 05:45:00 Test Item Value Reference Range Interpretation [...] S NOT APPLICABLE FOR DIALYSIS PATIEN TS. [employer] ID - WERNER [id number] 10:10:00 Test Item Value Reference Range Interpretation Comments FERRITIN (BEAKER) (test code = 55.09 ng/mL 5.00-275.00 361) [employer] ID - KAREN WVITAMIN B12 AND [id number] 10:10:00 Test Item Value Reference Range Interpretation Comments VITAMIN B12 671 pg/mL 213-816 (BEAKER) (test code = 774) FOLATE (BEAKER) 10.50 ng/mL See_Comment [Automated message] (test code = 362) The system which generated this result transmitted ref erence range: >=7.00. The reference range was not used to interpr et this result as normal/abnormal . [employer] ID - KAREN WIRON, TIBC, % SAT. (WITHOUT FERRITIN)2021-04-08 09:39:00 Test Item Value Reference Range Interpretation Comments IRON (BEAKER) (test code = 547) 11.0 ug/dL 40.0-160.0 L TOTAL IRON BINDING CAPACITY 309 ug/dL 250-450 (BEAKER) (test code = 769) IRON % SATURATION (2) (BEAKER) 4 % 20-55 L (test code = 2590) [employer] ID - KAREN WCBC W/PLT COUNT & AUTO [id number] 07:58:00 Test Item Value Reference Range Interpretation [...] (BEAKER) (test code = 2801) BASIC METABOLIC [id number] 05:49:00 Test Item Value Reference Range Interpretation [...] S NOT APPLICABLE FOR DIALYSIS PATIEN TS. [employer] ID - BSCBC W/PLT COUNT & AUTO [id number] 05:21:00 Test Item Value Reference Range Interpretation [...] 2801) FL, FLUORO, NON-SPECIFIC, UP TO 1 [id number] 12:45:00Reason for exam:- >ORIF Tibial Plateau Right [facility] : 1950 Sex: FFluoroscopic unit utilized for a procedure performed in the OR. No interpretation was requested. Refer tothe operative report for findings. Refer to PACS for patient radiation dose information.BASIC METABOLIC [id number] 09:58:00 Test Item Value Reference Range Interpretation [...] S NOT APPLICABLE FOR DIALYSIS PATIEN TS. [employer] ID - CANDIS [id number] 09:45:00 Test Item Value Reference Range Interpretation Comments HEMOGLOBIN (BEAKER) (test code = 6.1 GM/DL 11.2-15.7 L 410) [employer] ID - [id number]-COV2/RT-PCR ([facility])2021-04-07 09:25:00 Test Item Value Reference Range Interpretation Comments SARS-COV2/RT-PCR Negative Negative The SARS-Co V-2 target (test code = 1869945) nuclei c acids are not detected in [...] by their healthcareprovider. Results from [facility] Xpert Xpress SARS-CoV-2/Flu/RSV test should be [...] of the Act.Fact Sheet for Healthcare Providers:https ://www.[employer]/Documents/Xpert%20Xpress%20SARS%20CoV-2/Fact%20Sheets/302-390 2%30RRAL-FRZ-5%20HEALTHCARE%20PROVIDERS%20FACT%20SHEET.pdfFact Sheet for Healthcare Patients:https://www.[employer]/Docum ents/Xpert%20Xpress%20SARS%20Cov-2/Fact%20Sheets/302-3801%25HTHV-KAQ-0%20PATIENT %20FACT%20SHEET.pdf History and Physical Notes Date/Time Note Provider Source 2023-04-12 01:40:00-00:00 Geno Merritt MD: [facility] PERFORM, MODIFYEvent Display: History and PhysicalAuthored Date: [id number] and Physical Primary Team Name:Team Contact Info:PCP Contact info:Family contact info: Code Status: None Specified=FULL CODE Chief Complaint: Slip and fall on wet floor at hotel, hit left hip and hand with pain to both. AAOx4, PMSx4, no LOC, denies hitting head, no thinners. BGL: 94. History of Present Illness: 73-year-old white female with history of hypertension, schizophrenia, came after an accidental fall from a hotel.According to the patient, she fell on the bathroom floor after slipping on wet floor. She fell on her left hip. She was not able to get up. She has severe pain on the left hip.She was brought to the emergency room. She was found to have left intertrochanteric fracture. She has received nerve block in the emergency room. Review of Systems: Constitutional: No Fever, No Chills, No sweats, No weakness. Eye: No recent visual problem, No icterus, No discharge. Ear/Nose/Mouth/Throat: No decreased hearing, No ear pain, No nasal congestion, No sore throat. Respiratory: No shortness of breath, No cough, No sputum production, No hemoptysis. Cardiovascular: No chest pain, No palpitations, No bradycardia, No tachycardia. Gastrointestinal: No Nausea, No vomiting, No diarrhea, No constipation, No heartburn. Genitourinary: No dysuria, No hematuria, No change in urine stream, No urethral discharge. Hematology/Lymphatics: No bruising tendency, No bleeding tendency, No swollen lymph glands. Endocrine: No excessive thirst, No polyuria, No cold intolerance. Immunologic: Not immunocompromised, No recurrent fevers, No recurrent infections. Musculoskeletal: No deformity, No back pain, No neck pain, No muscle pain. Integumentary: No rash, No pruritus, No abrasions, No breakdown. Neurologic: Alert and oriented X4, No abnormal balance, No confusion, No numbness. Psychiatric: No anxiety, No depression, No jeannine, Not suicidal. All other systems are negative Problem List/Past Medical History: hypertension, schizophrenia Procedure/Surgical History: None Family History: Father and history of diabetes, CVA Social History: Electronic Cigarette/Vaping Electronic Cigarette Use: Never. Tobacco Use: Never smoker. Tobacco smoke exposure: None. Did the Patient Smoke Cigarettes Anytime During the Last 365 Days? No. Cessation Counseling Provided? No. Denies smoking, drinks wine occasionally, denies any drug use. She was currently living in a motel. Allergies: iodine morphine Home Medications: levothyroxine 25 mcg (0.025 mg) oral tablet, 25 microgram= 1 tab, PO, Daily mirtazapine 7.5 mg oral tablet, 7.5 mg= 1 tab, PO, Bedtime OLANZapine 5 mg oral tablet, 5 mg= 1 tab, PO, Daily risperiDONE 0.5 mg oral tablet, 1 mg= 2 tab, PO, BID sertraline 50 mg oral tablet, 50 mg= 1 tab, PO, Daily Physical Exam: Vitals and Measurements T: 98 F (Temporal Artery) HR: 70 (Peripheral) RR: 16 BP: 141/72 SpO2: 95% WT: 45.455 kg BMI: 17.75 General: Alert and orientedx3, mild distress. Eye: Pupils are equal, round and reactive to light, Extraocular movements are intact, Normal conjunctiva, Vision unchanged. HENT: Normocephalic, Tympanic membranes are clear, Normal hearing, Oral mucosa is moist, No pharyngeal erythema. Neck: Supple, Non-tender, No carotid bruit, No jugular venous distention, No lymphadenopathy, No thyromegaly. Respiratory: Lungs are clear to auscultation, Respirations are non-labored, Breath sounds are equal, Symmetrical chest wall expansion, No chest wall tenderness. Cardiovascular: Normal rate, Regular rhythm, No murmur, No gallop, Good pulses equal in all extremities, No edema. Gastrointestinal: Soft, Non-tender, Non-distended, Normal bowel sounds, No organomegaly. Genitourinary: No costovertebral angle tenderness, No inguinal tenderness, No urethral discharge, No lesions. Lymphatics: No lymphadenopathy neck, axilla, groin. Musculoskeletal Normal range of motion. Normal strength. Normal gait. Integumentary: Warm, Intact, Moist, No pallor, No rash. Neurologic: Alert, Oriented, Normal sensory, Normal motor function (power 5/5 bl), No focal deficits, Cranial Nerves II-XII are grossly intact, Gag reflex normal, Normal deep tendon reflexes. Cognition and Speech: Oriented, Speech clear and coherent, Functional cognition intact. Psychiatric: Cooperative, Appropriate mood and affect, Normal judgment, Non-suicidal. Pertinent Labs: 24hr Labs03/19 1052Sodium Lvl 141 Potassium Lvl 4.0 Chloride Lvl 109 CO2 30 AGAP 6.0 LGlucose Lvl 99 Creatinine Lvl 0.67 BUN 17 B/C Ratio 25 Total Protein 6.7 Albumin Lvl 3.4 LGlobulin 3.3 A/G Ratio 1.0 Calcium Lvl 8.9 ALT 27 AST 25 Alk Phos 81 Bili Total 0.4 eGFR 92 03/19 0835POC Performing Locatio See Note Glucose POC 94 Imaging Studies (last 72 hours) Ankle 3 views DX03/19/2023 10:47 Impression:No acute osseous abnormality. Nahum Butler MD On 03/19/2023 10:45:46; [id number] Foot series DX03/19/2023 10:44 Impression:No acute abnormality. Nahum Butler MD On 03/19/2023 10:44:04; [id number] Femur series DX03/19/2023 10:42 Impression:Acute comminuted intertrochanteric fracture of the proximal left femur. Omer Almeida MD On 03/19/2023 10:40:51; [id number] Hip 2/3 views uni w pelvis DX03/19/2023 10:35 Impression:Acute comminuted intertrochanteric fracture of the proximal left femur. Omer Almeida MD On 03/19/2023 10:34:32; [id number] Assessment/Plan: 1. Fall, accidental (W19.XXXA) monitor 2. Closed displaced intertrochanteric fracture of left femur (S72.142A) Ortho consulted, prn pain meds, will get nerve block by ansesthesia, monitor Ordered: Admit/Condition, 03/19/23 10:58:00 CDT, Status: Inpatient, Acute, Expected LOS: 2 Midnights, Geno Merritt MD, Zhanna FERNANDEZ Review/Approve Yes, Closed displaced intertrochanteric fracture of left femur | HTN (hypertension) 3. HTN (hypertension) (I10) give prn IV meds. Ordered: Admit/Condition, 03/19/23 10:58:00 CDT, Status: Inpatient, Acute, Expected LOS: 2 Midnights, Geno Merritt MD, Zhanna FERNANDEZ Review/Approve Yes, Closed displaced intertrochanteric fracture of left femur | HTN (hypertension) 4. Schizophrenia (F20.9) Resume home medication 5. Moderate malnutrition (E44.0) Dietary consult is placed Prophylaxis Famotidine, DVT prophylaxis per Ortho Disposition Admit inpatient, monitor closely.Geno Merritt MDElectronically Signed: 03/19/23 17:45 2023-04-12 01:40:00-00:00 Geno Merritt MD: [facility] PERFORMEvent Display: History and PhysicalAuthored Date: [id number] STATUS: Full codeDiscussed with the patient, RN, her son on phone, answered all questions.Geno Merritt MDElectronically Signed: 03/19/23 17:46 Notes Date/Time Note Provider Source 2023-03-19 PROCEDURE INFORMATION: [facility] 10:48:00-00:00 Exam: XR Chest Exam date and time: 03/19/2023 10:58 AM Age: 73 years old Clinical indication: /fall TECHNIQUE: Imaging protocol: Radiologic exam of the chest. Views: 1 view. COMPARISON: No relevant prior studies available. FINDINGS: Lungs: Mild decreased lung volumes. Left basilar opacities. Scattered pleuroparenchymal scarring. Pleural spaces: No pleural effusion. No pneumoth orax. Heart/Mediastinum: Heart size is mildly enlarged . Vasculature is congested. Bones/joints: No acute osseous abnormalities. IMPRESSION: Mild cardiomegaly with pulmonary venous congesti on. Left basilar opacities may represent atelectasis and/or consolidation. Matthew Curry MD On 03/19/2023 12:24:50; [id number]__ [id number] PROCEDURE INFORMATION: [facility] 09:51:00-00:00 Exam: XR Left Hip Exam date and time: 03/19/2023 9:32 AM Age: 73 years old Clinical indication: /fall TECHNIQUE: Imaging protocol: Radiologic exam of the left hi p. Views: 2 or 3 views hip with pelvis when perform ed. AP 1 view pelvis with 2 views hip COMPARISON: No relevant prior studies available. FINDINGS: Bones/joints: Acute comminuted intertroc hanteric fracture of the proximal left femur. Major fracture fragments are in n ear anatomic alignment. The acetabulum is unremarkable. The visualized sacroiliac joint and symphysis pubis are unremarkable. Soft tissues: There are no radio-opaque foreign bodies. Notes: If there is further concern, benny mmend follow-up radiographs or MRI for complete assessment. IMPRESSION: Acute comminuted intertrochanteric fracture of t he proximal left femur. Omer Almeida MD On 03/19/2023 10:34:32; [id number] 2023-03-19 PROCEDURE INFORMATION: [facility] 09:51:00-00:00 Exam: XR Left Ankle Exam date and time: 03/19/2023 9:46 AM Age: 73 years old Clinical indication: /fall TECHNIQUE: Imaging protocol: Radiologic exam of the left an kle. Views: 3 or more views. AP Oblique Lateral COMPARISON: Left foot this date FINDINGS: AP, oblique and cross-table lateral images. Generalized osteopenia. Slight chronic deformity of the distal tibia li filippo secondary to healed fracture. No acute fracture. Normal ankle mortise. IMPRESSION: No acute osseous abnormality. Nahum Butler MD On 03/19/2023 10:45:46; VR-G [id number]__[id number] 2023-03-19 PROCEDURE INFORMATION: [facility] 09:51:00-00:00 Exam: XR Left Femur Exam date and time: 03/19/2023 9:42 AM Age: 73 years old Clinical indication: /fall TECHNIQUE: Imaging protocol: Radiologic exam of the left fe mur. Views: 2 views. COMPARISON: HIP 2-3 VIEWS UNI DX, LEFT 03/19/2023 9:32 AM FINDINGS: Bones/joints: Acute comminuted intertroc hanteric fracture of the proximal left femur. Major fracture fragments are in n ear anatomic alignment. The acetabulum is unremarkable. Tricompartmental degenerative c hanges of the knee. No knee fracture. Soft tissues: There are no radio-opaque foreign bodies. Notes: If there is further concern, benny mmend follow-up radiographs or MRI for complete assessment. IMPRESSION: Acute comminuted intertrochanteric fracture of t he proximal left femur. Omer Almeida MD On 03/19/2023 10:40:51; [id number] 2023-03-19 PROCEDURE INFORMATION: [facility] 09:51:00-00:00 Exam: XR Left Foot Exam date and time: 03/19/2023 9:49 AM Age: 73 years old Clinical indication: /fall TECHNIQUE: Imaging protocol: Radiologic exam of the left fo ot. Views: 3 or more views. AP Oblique Lateral COMPARISON: ANKLE 3 VIEWS DX, LEFT 03/19/2023 9:44 AM FINDINGS: AP, oblique and rotated lateral images, three v iews. Generalized osteopenia. No fracture or dislocation. IMPRESSION: No acute abnormality. Nahum Butler MD On 03/19/2023 10:44:04; VR-G [id number]__[id number] 2023-02-22 Formatting of this note might be differe nt from the original. Matt Alo Parry [facility] 14:40:51-00:00 OPC#[id number] System 2023-02-22 Formatting of this note might be differe nt from the original. Sridevi Peña [facility] 14:37:00-00:00 Assumed care of client, in room asleep, monitoring ongoing. Olivia TAYLOR System 2023-02-22 [facility] 13:10:13-00:00 Patient sitting in room awak e. Patient remains safe on unit, respirations present and unlabored. No acute s/s of distress noted at this time. System Electronically signed by Michelle Wilcox at 0 02/22/2023 1:10 PM CDT 2023-02-22 [facility] 11:12:00-00:00 UNIT ADMIT: Received patient from triage/YKOO 2 area. Pt presented to EC with CC of paranoia and bizarre behavior [...] different fro m the original. Gavin Miranda [facility] 08:00:00-00:00 System 02/22/23 0800 Crisis Intervention Contact Initiated Rounds Subjective Pt. is resting in a chair with a sitt er at the door Plan PRN Gavin Miranda 2023-02-22 [facility] 07:52:15-00:00 SW emailed Daytime WOT to [facility] [address] for transfer of pt to [facility] via constables at 0751hrs. System Matt Parry LMSW #[id number] 2023-02-22 Formatting of this note might be differe nt from the original. Psychiatry [facility] 06:32:53-00:00 Pt can be moved over to pod E pending cosign on medclear note and pending pt changing into green scrubs. System Janis Watson MD, PGY-2 2023-02-22 [facility] 06:23:17-00:00 D2D completed with [facility]. Pt accepted. System Janis Watson MD, PGY-2 2023-02-22 Formatting of this note might be differe nt from the original. Peg Vilchis Ирина [facility] 06:18:21-00:00 Pt agreed to remove jewelry, but still refused to remove the inner wear. System Electronically signed by Peg Gifford at 6:20 AM CDT 2023-02-22 Formatting of this note might be differe nt from the original. Michael Tello [facility] 06:16:48-00:00 Report given to Glenn TAYLOR from [facility] System Electronically signed by Michael Tello at 02/09 6:17 AM CDT 2023-02-22 Formatting of this note might be differe nt from the original. Devendra Torres [facility] 05:19:27-00:00 Went to relocate patient to POD E as ordered. Patient refused to remove her jeweries and inner dressings. After prolonged attempts to encourage patient, there was no success. (DR. RODRIGUEZ) notified. System Electronically signed by Devendra Torres at 2022 5:22 AM CDT 2023-02-22 Formatting of this note is different fro m the original. Nurse Practitioner [facility] 04:45:33-00:00 MEDICAL STABILITY FOR PSYCHIATRIC DISPOSITION [...] finger stick blood glucose) No Disposition/placement in [facility] for non-psychiatric reasons No greater [...] be differe nt from the original. Psychiatry [facility] 04:45:14-00:00 Received doc to doc call [...] once [place], [id number] 2023-02-21 Formatting of this note is different maxwell amaro the original. Emergency Medicine [facility] 23:03:57-00:00 I have assumed care of [...] Transfer to psych facility Elda Mcintosh MD, MSEd Perico Lira MD 02/26/23 1950 2023-02-21 [facility] 21:54:30-00:[address] due to r efusing to take off jewelry and not lying flat on her back. System Electronically signed by Michael Tello at 02/09 9:55 PM CDT 2023-02-21 [facility] 20:50:06-00:00 Pt refusing to do covid swab . Informed pt the reason behind the test and importance, pt states she does not have covid and recently got tested negative System Millicent Tello RN Electronically signed by Michael Tello at 02/09 8:52 PM CDT 2023-02-21 Formatting of this note is different fro m the original. Manoj Garcia [facility] 20:01:00-00:00 System 02/21/232000 Crisis Intervention Contact Initiated Rounds Subjective Patient sitting d own in blue chair resting in BT [id number] area with no distress, aggression or intervention [...] different fro m the original. Diana Andrea [facility] 18:40:44-00:00 SW received consult for phong [...] if needed, please re-consult. Diana Mercado LCSW #[id number] Social Work Case Management II EC BT Ext. [id number]/ 2023-02-21 Formatting of this note is different from the or iginal. [facility] 15:09:26-00:00 [facility]Nr[facility] System Initial [...] that she was hiding out in a [employer] because she was concerned for her safety. She mentioned she was at [employer] from 11p last night to 5a this [...] Maier. Of most concern, son drove to [place] on February 18 because police called to say that she was found in a public restroom with a trashcan on her head. 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 She helped [...] for: HAVIGM, HCV No components found for: ISIASECQ89 No results found for: FOLATE No results [...] her granddaughter . She stayed at a [facility] overnight for fear that pipe bomb s were in her car. Over the weekend, she was found in [place] sleeping in a public restroom with a [...] falls. Signature: Obed Giron MD Psychiatry Faculty [id number] 2023-02-21 Formatting of this note is different from the or iginal. Psychiatry [facility] 12:12:46-00:00 Psychiatry Brief Note: System Collateral: Chasity (Son - [phone]) Has had hallucinations for 6-8 years. He [...] turn her phone off. Son drove to [place] on February 18 2023 at 1AM due to police finding pt in a public restroom with a trashcan on her head sleeping. Stating that people are bombing her and shooting at her. She stat ed that she wanted to go to the [facility] there and [place] is a previous happy place. Pt only [...] [employer]. 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 She retired from that [...] side Leatha Maier D.O. Attending Physician [facility] Provider ID # [id number] Electronically signed by Leatha Maier DO at 02/21 12:15 PM CDT 2023-02-21 Formatting of this note is different fro m the original. Emergency Medicine [facility] 12:01:00-00:00 System History Chief Complaint Patient [...] MonFeb 22, 2023 033 WBC(!): 6 [MA] 0337 Nitrate: Negative [MA] 0337 Leukocyte(!): trace [MA] 0705 PP. Relocate order. Will be transfer. 73 h/o schizophrenia, here E DO? Aud hallucinations. Work up neg. Neck pain x5d 10/[address] canceled due to decline. [AR] ED Course User Index [AR] Danielle Wilson, PA [ED] Cristine Poe, ResidentMD [MA] Donna Schneider, MANAGER OUTREACH [MR] Shadia Chambers, MANAGER OUTREACH [SS] Noble Bonilla MD Consult(s): - Psychiatry Disposition: - Continue to monitor in the emergency departmen t Clinical Impression No diagnosis found. Noble Bonilla MD 02/21/23 [id number] 2023-02-21 [facility] 08:15:00-00:00 I took patient from other si [...] is different fro m the original. Holly Danielle [facility] 07:20:00-00:00 System 02/21/23 0720 Crisis Intervention [...] different fro m the original. Tal Dodson [facility] 06:13:22-00:00 No past medical history on file. System Chief Complaint Patient presents with Paranoid Hallucinations Patient alert and oriented a t this time. Pt states that her whole family today. Pt states she was eating at [employer] and her whole family in front of [...] Dodson at 02/09 6:25 AM CDT 2023-02-21 [facility] 05:52:03-00:00 Verified name, , and navarro rgies with patient, ID and officer. Patient drove herself to the police station and said that her sons were killed and her killed himself at [employer]. Sons confirm russell System t she has not been formally diagnoses but has been deteriorating. Responding to internal stimuli. Lead psyche tech notified of need for 1:1 sitter. Escorted patient to Pod F18.
[2023-04-26 04:34] LABS: RBC Red Blood Cell Count 3.31 M/uL (3.86-4.86)
[2023-04-26 04:35] LABS: Absolute Lymphocytes (CBC) 1.1 K/uL (0.7-4.9); Hematocrit 29.1 % (36.0-45.0); Lymphocytes % 19.3 % (15.3-44.8); MPV 7.4 fL (7.6-11.3); Platelets 266 thou/uL (152-406)
[2023-04-26 04:39] LABS: Protime INR 1.06
[2023-04-26 05:01] LABS: ALT/SGPT 20 U/L (13-56); AST/SGOT 19 U/L (15-37); Albumin 3.7 g/dL (3.4-5.0); Alkaline Phosphatase 167 U/L (45-117); BUN Blood Urea Nitrogen 30 mg/dL (7-18); Bicarbonate 29 mEq/L (21-32); Bilirubin Direct 0.1 mg/dL (0-0.2); Bilirubin Indirect, Calculated 0.2 mg/dL (0.2-0.8); Bilirubin Total 0.3 mg/dL (0.2-1.0); Glomerular Filtration Rate 41 ml/min (=/>90); Glucose Level 111 mg/dL (74-106); Potassium 3.3 mEq/L (3.5-5.1); Protein, Total 6.9 g/dL (6.4-8.2); Sodium Level 136 mEq/L (136-145)
--- NOTE | 2023-04-26 05:36 | EDPHYS ---
Physician Documentation [facility] Name: Sharmaine Amaya Age: 73 yrs Sex: Female : 1950 Arrival Date: 04/26/2023 Time: 03:48 Bed 7 Private MD: ED Physician Sabas Licona HPI: 04/26 03:58 This 73 yrs old Female presents to ER via EMS with complaints of left leg sp4 pain. 05:01 73-year-old female with past medical history of schizophrenia presents for complaint of sp4 acute left lower extremity pain and concern for DVT. Patient was apparently on the way to [facility] for acute psychosis at which time she developed discomfort in the left lower extremity and was brought here by EMS for evaluation of the discomfort. Patient has history of recent left femoral repair at [facility] on March 14.. 05:07 [facility] has requested evaluation to rule out DVT in the left lower sp4 extremity. And thus patient was brought here by EMS. . Historical: - Allergies: 03:57 BACITRACIN; rv 03:57 Bacitracin Zinc; rv 03:57 benzalkonium chloride; rv 03:57 Demerol; rv 03:57 Gramicidin D; rv 03:57 Iodinated Contrast Media - IV Dye; rv 03:57 Morphine; rv 03:57 Neomycin Sulfate; rv 03:57 Polymyxin B Sulfate; rv 03:57 triclosan; rv - PMHx: 03:57 Hallucinations; rv - Immunization history:: Adult Immunizations up to date. - Social history:: Smoking status: unknown. - Family history:: not pertinent. ROS: 05:07 Constitutional: Negative for fever, chills, and weight loss, Eyes: Negative for injury, sp4 pain, redness, and discharge, ENT: Negative for injury, pain, and discharge, MS/Extremity: Negative for injury and deformity, positive for left lower extremity pain and discomfort associated with recent surgery. 05:07 All other systems are negative. Exam: 05:07 Constitutional: This is a well developed, well nourished patient who is awake, alert, sp4 and in no acute distress. Patient has pressured speech and verbal derailment with tangential thought process Head/Face: Normocephalic, atraumatic. Eyes: Pupils equal round and reactive to light, extra-ocular motions intact. Lids and lashes normal. Conjunctiva and sclera are not injected. Cornea within normal limits. Periorbital areas with no swelling, redness, or edema. ENT: Nares patent. No nasal discharge, no septal abnormalities noted. Tympanic membranes are normal and external auditory canals are clear. Oropharynx with no redness, swelling, or masses, exudates, or evidence of obstruction, uvula midline. Mucous membranes moist. Neck: Trachea midline, no thyromegaly or masses palpated, and no cervical lymphadenopathy. Supple, full range of motion without nuchal rigidity, or vertebral point tenderness. Chest/axilla: Normal chest wall appearance and motion. Nontender with no deformity. No lesions are appreciated. Cardiovascular: Regular rate and rhythm with a normal S1 and S2. No gallops, murmurs, or rubs. Normal PMI, no JVD. No pulse deficits. Respiratory: Lungs have equal breath sounds bilaterally, clear to auscultation and percussion. No rales, rhonchi or wheezes noted. No increased work of breathing, no retractions or nasal flaring. Abdomen/GI: Soft, non-tender, with normal bowel sounds. No distension or tympany. No guarding or rebound. No evidence of tenderness throughout. Back: No spinal tenderness. No costovertebral tenderness. Skin: Warm, dry with normal turgor. Normal color with no rashes, no lesions, and no evidence of cellulitis. MS/ Extremity: Pulses equal, no cyanosis. Neurovascular intact. Full, normal range of motion. There is left lower extremity lateral thigh postoperative scar and healing stages from recent left femoral repair. There is a second scar just above left lateral thigh. Also in healing stages. There is mild left foot swelling, intact peripheral pulses. Neuro: Awake and alert, GCS 15, oriented to person, place, time, and situation. Cranial nerves II-XII grossly intact. Motor strength 5/5 in all extremities. Sensory grossly intact. Psych: Awake, alert, with orientation to person, place and time. Behavior, mood, and affect are within normal limits 05:07 ECG was reviewed by the Attending Physician. EKG 0 4:32 AM rate is normal sinus sp4 rhythm, there is LVH, there is muscle tremor artifact, no ST elevation or depression. Sinus rhythm at the rate of 77 Vital Signs: 03:55 BP 134 / 59; Pulse 92; Resp 18; Temp 97.9; Pulse Ox 99% ; Weight 47.63 kg; rv 04:48 BP 144 / 75; Pulse 65; Resp 16; Pulse Ox 99% on R/A; kd3 06:55 BP 160 / 70; Pulse 98; Resp 19; Pulse Ox 100% ; kd3 07:53 BP 156 / 73; Pulse 71; Pulse Ox 99% on R/A; ap3 MDM: 05:01 ED course: TECHNIQUE: Spectral analysis and color/grayscale sonographic images of the sp4 left leg were obtained utilizing a high-frequency linear array transducer supplemented with color Doppler, compression and augmentation techniques. FINDINGS: Common femoral: normal Greater saphenous: normal Superficial femoral: normal Popliteal: normal Calf Veins: normal IMPRESSION: No sonographic evidence for left lower extremity deep venous thrombosis.. 05:07 ED course: Old record review - x-ray from 04/14/2023 - EXAM DESCRIPTION: RAD - Femur Left sp4 - 04/14/2023 6:37 am CLINICAL HISTORY: PAIN COMPARISON: No comparisons FINDINGS: Proximal left femoral hardware is noted. No unexpected hardware finding. Mild soft tissue swelling laterally. Ununited lesser trochanteric fragment. . 05:07 Differential Diagnosis altered mental status, sepsis, flu. Data reviewed: vital signs, sp4 nurses notes, EMS record, old medical records, lab test result(s), EKG, radiologic studies, ultrasound. Consideration of Admission/Observation Patient was admitted/placed on observation. Escalation of care including admission/observation considered. 05:31 ED course: Patient was evaluated in the emergency room and left lower extremity DVT was sp4 ruled out with ultrasound. Blood work is positive for mild hypokalemia potassium 3.3 otherwise unremarkable. Will give patient p.o. potassium supplementation. Patient at this time is medically cleared for admission to [facility] from our point of view patient is stable and she may be transported with a police escort. . 05:36 Patient medically screened. sp4 06:30 ED course: I was informed by the day. The patient has NADIR and she now requires transfer sp4 warranted to [facility] or other psychiatric hospital.. Patient's NADIR states that she has been hallucinating and wandering the streets and she is a danger to herself. At this time we will pursue transfer warrant. . 07:08 Transition of care: After a detail discussion of the patient's case, care is sp4 transferred to Sabas Licona MD. 04/26 04:00 Order name: Acetaminophen; Complete Time: 05:16 sp4 04/26 04:00 Order name: Basic Metabolic Panel; Complete Time: 05:16 sp4 04/26 04:00 Order name: CBC with Diff; Complete Time: 05:01 sp4 04/26 04:00 Order name: ETOH Level; Complete Time: : sp4 04/26 04:00 Order name: Hepatic Function; Complete Time: : sp4 04/26 04:00 Order name: PT-INR; Complete Time: 05: sp4 04/26 04:00 Order name: Ptt, Activated; Complete Time: 05: sp4 04/26 04:00 Order name: Salicylate; Complete Time: 05:16 sp4 04/26 04:00 Order name: Extremity Venous Uni [place] [id number] 04/26 04:00 Order name: EKG; Complete Time: 04: sp4 04/26 04:00 Order name: EKG - Nurse/Tech; Complete Time: 04:39 sp4 04/26 04:00 Order name: IV Saline Lock; Complete Time: 04:17 sp4 04/26 04:00 Order name: Labs collected and sent; Complete Time: : sp4 04/26 04:00 Order name: Suicide Screening (Randall); Complete Time: :17 sp4 EC:07 Rate is 77 beats/min. Rhythm is regular, Sinus Rhythm. QRS [place] is Normal. NH interval sp4 is normal. QRS interval is normal. No Q waves. T waves are Normal. No ST changes noted. Clinical impression: No evidence of ischemia. Interpreted by me. Administered Medications: 06:27 Drug: Potassium Chloride PO 40 mEq Route: PO; kd3 06:56 Follow up: Response: No adverse reaction kd3 Disposition Summary: 04/26/23 07:45 Discharge Ordered Location: Home jessica Problem: new(04/26/23 07:45) jessica Symptoms: have improved(04/26/23 07:45) jessica Condition: Stable(04/26/23 07:45) jessica Diagnosis - Schizophrenia, unspecified jessica Followup: jessica - With: Private Physician - When: 2 - 3 days - Reason: Recheck today's complaints, Continuance of care, Re-evaluation by your physician Followup: jessica - With: Jeffy Baca MD - When: 2 - 3 days - Reason: Recheck today's complaints, Re-evaluation by your physician Discharge Instructions: - Discharge Summary Sheet jessica - Schizophrenia jessica - Supporting Someone With Schizophrenia jessica - Managing Schizophrenia jessica Forms: - Medication Reconciliation Form jessica - Thank You Letter jessica - Antibiotic Education jessica - Prescription Opioid Use jessica - Patient Portal Instructions jessica - Leadership Thank You Letter jessica Signatures: Dispatcher [employer] Sabas Anderson MD MD cha Vicente, Ronaldo RN RN rv Tiffanie Alfaro RN RN kd3 Gage Robert MD MD sp4 Corrections: (The following items were deleted from the chart) 07:44 05:36 [facility] Attending sp4 [facility] 07:44 05:36 Psych Facility sp4 [facility] 07:44 05:36 Higher level of care sp4 [facility] 07:44 05:36 Stable sp4 [facility] 07:44 05:36 new sp4 [facility] 07:44 05:36 have improved sp4 [facility] 07:44 05:36 Unspecified psychosis not due to a substance or known physiological condition sp4 [facility] 07:44 05:36 Chronic paranoid schizophrenia with recent exacerbation, anxiety about health, jessica left lower extremity postoperative swelling subacute, postoperative left lower extremity pain and discomfort, history of left femoral repair sp4
--- NOTE | 2023-04-26 05:36 | ER ---
Nurse's Notes [facility] Name: Sharmaine Amaya Age: 73 yrs Sex: Female : 1950 Arrival Date: 04/26/2023 Time: 03:48 Bed 7 Private MD: Diagnosis: Schizophrenia, unspecified Presentation: 04/26 03:55 Chief complaint: EMS states: PT IS ON NADIR, HAS A BED WAITING IN [facility]. TODAY rv COMPLAINED OF LEFT UPPER LEG PAIN. SWELLING OF THE LEFT FOOT NOTED. Coronavirus screen: At this time, the client does not indicate any symptoms associated with coronavirus-19. Ebola Screen: No symptoms or risks identified at this time. Initial Sepsis Screen: Does the patient meet any 2 criteria? No. Patient's initial sepsis screen is negative. Does the patient have a suspected source of infection? No. Patient's initial sepsis screen is negative. Risk Assessment: Do you want to hurt yourself or someone else? Patient reports no desire to harm self or others. Onset of symptoms was April 26, 2023. 03:55 Method Of Arrival: EMS: [facility] rv 03:55 Acuity: YOKO 2 rv Triage Assessment: 03:57 General: Appears ill, Behavior is cooperative. Pain: Complains of pain in left leg. rv Neuro: Level of Consciousness is awake, alert, obeys commands. Cardiovascular: Capillary refill < 3 seconds. Respiratory: Airway is patent. GI: No signs and/or symptoms were reported involving the gastrointestinal system. : No signs and/or symptoms were reported regarding the genitourinary system. Derm: Musculoskeletal: Swelling present in left foot. Historical: - Allergies: 03:57 BACITRACIN; rv 03:57 Bacitracin Zinc; rv 03:57 benzalkonium chloride; rv 03:57 Demerol; rv 03:57 Gramicidin D; rv 03:57 Iodinated Contrast Media - IV Dye; rv 03:57 Morphine; rv 03:57 Neomycin Sulfate; rv 03:57 Polymyxin B Sulfate; rv 03:57 triclosan; rv - PMHx: 03:57 Hallucinations; rv - Immunization history:: Adult Immunizations up to date. - Social history:: Smoking status: unknown. - Family history:: not pertinent. Screenin:59 [facility] ED Fall Risk Assessment (Adult) History of falling in the last 3 months, rv including since admission No falls in past 3 months (0 pts) Confusion or Disorientation No (0 pts) Intoxicated or Sedated No (0 pts) Impaired Gait Yes (1 pt) Mobility Assist Device Used No (0 pt) Altered Elimination No (0 pt) Score/Fall Risk Level 0 - 2 = Low Risk Oriented to surroundings, Maintained a safe environment, Educated pt \T\ family on fall prevention, incl call for assistance when getting out of bed, Assessed \T\ reinforced patient's understanding of fall precautions, Provided non-skid footwear, Hourly rounding (assess needs \T\ fall precautionary measures) done, Used ambulatory aids as needed (educated on \T\ assisted with), Used gait belt as appropriate. Abuse screen: Denies threats or abuse. Denies injuries from another. Nutritional screening: No deficits noted. Tuberculosis screening: No symptoms or risk factors identified. Assessment: 06:55 General: Appears comfortable, Behavior is cooperative. Neuro: Level of Consciousness is kd3 awake, alert, obeys commands, Oriented to person, place, time, situation. Respiratory: Airway is patent Trachea midline Respiratory effort is even, unlabored, Respiratory pattern is regular, symmetrical. 07:40 Reassessment: patient denies SI or HI at this time. patient states she feels safe, and ap3 wishes to go home. provider notified. . 10:00 Reassessment: Patient appears in no apparent distress at this time. Patient is alert, nj1 oriented x 3, equal unlabored respirations, skin warm/dry/pink. Vital Signs: 03:55 BP 134 / 59; Pulse 92; Resp 18; Temp 97.9; Pulse Ox 99% ; Weight 47.63 kg; rv 04:48 BP 144 / 75; Pulse 65; Resp 16; Pulse Ox 99% on R/A; kd3 06:55 BP 160 / 70; Pulse 98; Resp 19; Pulse Ox 100% ; kd3 07:53 BP 156 / 73; Pulse 71; Pulse Ox 99% on R/A; ap3 ED Course: 03:50 Patient arrived in ED. rv1 03:55 Nate Bertrand RN is Primary Nurse. rv 03:57 Triage completed. rv 03:58 Gage Robert MD is Attending Physician. sp4 03:58 Arm band placed on right wrist. rv 03:59 Patient has correct armband on for positive identification. Bed in low position. Call rv light in reach. Side rails up X 1. Client placed on continuous cardiac and pulse oximetry monitoring. NIBP monitoring applied. 03:59 No provider procedures requiring assistance completed. rv 04:17 Inserted saline lock: 20 gauge in right antecubital area, using aseptic technique. rv Blood collected. 04:30 Extremity Venous Uni Ltd US In Process Unspecified. EDMS 07:15 Attending Physician role handed off by Gage Robert MD [facility] 07:15 Sabas Licona MD is Attending Physician. jessica 07:44 Jeffy Baca MD is Referral Physician. [facility] 07:52 Provided Education on: safe discharge instructions. ap3 07:53 IV discontinued, intact, bleeding controlled, No redness/swelling at site. Pressure ap3 dressing applied. Administered Medications: 06:27 Drug: Potassium Chloride PO 40 mEq Route: PO; kd3 06:56 Follow up: Response: No adverse reaction kd3 Medication: 07:52 VIS not applicable for this client. ap3 Outcome: 05:36 ER care complete, transfer ordered by . sp4 07:45 Discharge ordered by . [facility] 07:52 Condition: good ap3 10:00 Discharged to home nj1 10:00 Instructed on discharge instructions, follow up and referral plans. 10:02 Patient left the ED. ap3 Signatures: Dispatcher [employer] [facility] Sabas Licona MD MD cha Prokisch, Amanda RN RN ap3 Nate Bertrand, RN RN Tiffanie Keys RN RN kd3 Elba Moore rv1 Gage Robert MD MD sp4 Gale Ann RN RN nj1
[2023-04-26] MEDS ORDERED: POTASSIUM CL SA 10 MEQ TAB PO ONE (06:30)
[2023-04-26 10:36] VITALS: TEMP 97.9
[2023-04-26 10:43] VITALS: BP 156/73; O2SAT 99
--- NOTE | 2023-04-26 11:55 | RAD REPORT ---
EXAM DESCRIPTION: US - Extremity Venous Uni Ltd - 04/26/2023 4:28 am CLINICAL HISTORY: 73 years Female left leg pain COMPARISON: None TECHNIQUE: Spectral analysis and color/grayscale sonographic images of the left leg were obtained ut ilizing a high-frequency linear array transducer supplemented with color Doppler, compression and aug mentation techniques. FINDINGS: Common femoral: normal Greater saphenous: normal Superficial femoral: normal Popliteal: normal Calf Veins: normal IMPRESSION: No sonographic evidence for left lower extremity deep venous thrombosis. Electronically signed by: Arleen Oliva MD 04/26/2023 4:40 AM CDT Due to temporary technical issues with the PACS/Fluency reporting system, reports are being signed by the in house radiologist without review as a courtesy to ensure prompt reporting. The interpreting r adiologist is fully responsible for the content of the report.
--- NOTE | 2023-04-26 18:26 | EKG ---
Test Date: 2023-04-26 Test Time: 04:32:00 Lens Cementer: RV MEASUREMENT RESULTS: Intervals: Rate: 77 VT: 158 QRSD: 76 QT: 424 QTc: 479 [place]: P: 111 VT: 158 QRS: 21 T: 81 INTERPRETIVE STATEMENTS: Normal sinus rhythm Minimal voltage criteria for LVH, may be normal variant Nonspecific ST and T wave abnormality Abnormal ECG Compared to ECG 03/17/2015 14:21:20 Left ventricular hypertrophy now present ST (T wave) deviation now present Electronically Signed On 04-26-23 18:24:44 CDT by Ildefonso Knox
== END 2023-04-26 10:02 | disposition home or self-care (01) ==
LOC: ER 03:48
DX: F20.9 Schizophrenia, unspecified (principal); M79.605 Pain in left leg; Z88.1 Allergy status to other antibiotic agents; Z88.5 Allergy status to narcotic agent; Z88.8 Allergy status to other drugs, medicaments and biological substances; Z91.041 Radiographic dye allergy status
CPT/HCPCS: 36415; 80048; 80076; 80143; 80179; 82077; 85025; 85610; 85730; 93005; 93971

== ENCOUNTER 2023-06-15 23:39 | Emergency (ER) | payer OTHER ==
--- OUTSIDE RECORDS SUMMARY | 2023-06-15 23:48 | XMS REPORT | Continuity of Care Document ---
:[address] [facility] t Address [address] [facility] [address] [place] [address] Care Team Providers Name Role Phone Pcp, Patient Does Not Have Primary Care Physician Unavailmarco e SHAHNAZ RODRIGUEZ Attending Clinician Unavailable Brice Carias DO Attending Clinician TONEY BOWERS Attending Clinician Unavailable Toney Bowers Attending Clinician ULICES GIL Attending Clinician Unavailable ARI WEBBER Attending Clinician Unavailable Noble Bonilla MD Attending Clinician Garrison FERNANDEZ, Yines T Attending Clinician Perico Lira MD Attending Clinician Lottie Blum MD Attending Clinician Tiffany Giron MD Attending Clinician [phone] NOBLE BONILLA Attending Clinician Unavailable SHAHNAZ RODRIGUEZ Admitting Clinician Unavailable DO BRICE CARIAS Admitting Clinician Unavailable GENO MERRITT Admitting Clinician Unavailable Geno Merritt Admitting Clinician Payers Payer Name Policy Type Policy Number Effective Date Expiration Date S ource [employer] MEDICARE [id number] 2019 ADVANTAGE PPO 00:00:00 [employer]NA FFS [id number] 2019 00:00:00 [employer]NA MEDICARE [id number] 2019 ADV 00:00:00 Problems Condition Condition Condition Status Onset Resolution Last Treating Co mments Source Name Details Category Date Date Treatment Clinician Date FALL FALL Diagnosis Active 2023-03-19 Mem oria Active 03-19 10:56:00 l 03/19/2023 00:00: Edward frankel [place] [id number] [facility] CLOSED CLOSED Diagnosis Active 2023-04-17 Me moria DISPLACED DISPLACED 03-19 21:48:00 l INTERTROCH INTERTROCH 00:00: He rmann ANTERIC ANTERIC 00 FRACT FRACT Active 03/19/2023 [facility] Displaced Displaced Disease Active [facility] lateral of lateral 00:00: Me dical condyle of condyle of 00 Ce nter right right tibia, tibia, initial initial encounter encounter for closed for closed fracture fracture Tibial Tibial Disease Active [facility] fracture fracture 00:[facility]: Medica l 00 Center 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 substance or known or known physiologi physiologi petr petr condition condition Hypothyroi Hypothyro Problem Active 2023-04-14 Memoria dism idism 05:47:23 l (disorder) (disorder) He rmann Active Problem 04/14/2023 Schizophre Schizophr Problem Active 2023-04-14 Memoria kelly enia 05:47:23 l (disorder) (disorder) He rmann Active Problem 04/14/2023 DISPLACED DISPLACED Diagnosis Active 2023-04-17 Memoria INTERTROCH INTERTROCH 21:48:00 l ANTERIC ANTERIC [place] FRACTURE FRACTURE OF OF Active [facility] ESSENTIAL ESSENTIAL Diagnosis Active 2023-04-17 Memoria (PRIMARY) (PRIMARY) 21:48:00 l HYPERTENSI HYPERTENSI He rmann ON ON Active [facility] Allergies, Adverse Reactions, Alerts Allergy Allergy Status Severity Reaction(s) Onset Inactive Treating Comm ents Source Name Type Date Date Clinician Meperidi Propensi Active Hives Method i ne ty to [facility] adverse 00:00: Hospita reaction 00 l s to drug Morphine Propensi Active Hives Method i ty to [facility] adverse 00:00: Hospita reaction 00 l s to drug Latex Propensi Active Itching 2022-0 Tristan ty to 6-13 Health adverse 00:00: reaction 00 s to drug Shrimp Propensi Active Palpitations Ghosh rris ty to 6 Health adverse 00:00: reaction 00 s to drug Cashew Propensi Active Hives 2020-[address] [facility] Nut [facility] to 04[facility] adverse 00:00: Medical reaction 00 Center s Mandarin Propensi Active Itching 2020- [facility] [place] [facility] adverse 00:00: Medical reaction 00 [facility] [place] [facility] Active Hives 2020-[address] [facility] [address] o Nut Allergy 04-08 [facility] 00:[facility]: Medical 00 Center PISTACHI Allergy Active High Hives 2020-0 [facility] O NUT 04-08 00:00: 00 CASHEW Allergy Active High Hives 2020-0 [facility] NUT 04-08 00:00: 00 MANDARIN Allergy Active Itching 2020-0 [facility] ORANGE 04-08 00:00: 00 Shrimp Propensi Active Hives 2020-[address] [facility] ty to 04-06 [facility] adverse 00:00: Medical reaction 00 [facility] Triclosa Propensi Active Hives, 2020-[address] [facility] ty to Swelling 04-06 [facility] adverse 00:00: Medical reaction 00 Center s Meperidi Propensi Active Itching, 2020-[address] [facility] ty to Rash 04-06 [facility] adverse 00:00: Medical reaction 00 Center s Iodine Propensi Active Hives 2020-[address] [facility] ty to 7 [facility] adverse 00:00: Medical reaction 00 Center s Morphine Propensi Active Rash 2020-[address] [facility] ty to 7 [facility] adverse 00:00: Medical reaction 00 Center s Other Propensi Active 2020- Cannot [facility] ty to 7 use any [facility] adverse 00:00: "fancy" Medical [...] Allergy Active High Hives [facility] Center OTHER Allergy Active [facility] POISON Allergy Active Other [facility] QUYNH 04-[facility] EXTRACT 00:00: Medical 00 Center MEPERIDI Allergy Active Low Itching [facility] 00:[facility]: Medical [facility] Center MORPHINE Allergy Active Low Rash [facility] morphine morphine Active Memori a l [place] Demerol Demerol Active Memoria l Alec Other Other Active Memoria Food Food l Allergy< Allergy< Edward n sup>1</s sup>1</s up> up> iodine iodine Active Memoria l [place] NO KNOWN Allergy Active [facility] ALLERGIE S Social History Social Habit Start Date Stop Date Quantity Comments Source Sexual orientation [facility] Gender identity [facility] History of Social 2023-04-30 2023-04-[address] function 00:00:00 00:00:00 Hospital Exposure to 2023-02-11 2023-02-21 Not sure [facility] SARS-CoV-2 (event) 00:00:00 05:50:00 Alcohol intake 2021-04-08 2021-04-08 Ex-drinker [facility] Tobacco use and 2021-04-06 2021-04-[address] [facility] exposure 00:00:00 00:00:00 tobacco non-user [facility] Sex Assigned At [address] [facility] 00:[facility] Smoking Status Start Date Stop Date Source Tobacco smoking consumption unknown [facility] Tobacco smoking status [facility] Medications Ordered Filled Start Stop Current Ordering Indication Dosage Frequency Signature Comments Components Source Medication Medication Date Date Medication? Clinician (SIG) Name Name gabapentin Yes 100 mg = 1 M emoria 100 mg oral 8-01 cap, PO, l capsule 18:29: Q8Hnow, # Cassandra nn 00 90 cap, 0 Refill(s), Pharmacy: [facility], 152.4, cm, 03/19/23 13:10:00 CDT, Height, 45.455, kg, 03/19/23 13:10:00 CDT, Weight gabapentin Yes 100 mg = 1 M emoria 100 mg oral 8-01 cap, PO, l capsule 18:29: Q8Hnow, # Cassandra nn 00 90 cap, 0 Refill(s), Pharmacy: [facility] 482, 152.4, cm, 03/19/23 13:10:00 CDT, Height, 45.455, kg, 03/19/23 13:10:00 CDT, Weight gabapentin Yes 100 mg = 1 M emoria 100 mg oral 8-01 cap, PO, l capsule 18:29: Q8Hnow, # Cassandra nn 00 90 cap, 0 Refill(s), Pharmacy: [facility] 482, 152.4, cm, 03/19/23 13:10:00 CDT, Height, 45.455, kg, 03/19/23 13:10:00 CDT, Weight MiraLax Yes Notes: Memoria 7-18 Dissolve l 14:00: in 8 oz of [place] 00 water or juice. (Same as: Miralax) MiraLax Yes Notes: Memoria 7-18 Dissolve l 14:00: in 8 oz of [place] 00 water or juice. (Same as: Miralax) MiraLax Yes Notes: Memoria 7-18 Dissolve l 14:00: in 8 oz of Alec 00 water or juice. (Same as: Miralax) Senokot S Yes Notes: Memori a 7-18 (Same as l 02:00: Senokot-S) Alec 00 Equiv. to Rosie-Colac e. Senokot S 2023-0 Yes Notes: Memori a 7-18 (Same as l 02:00: Senokot-S) Clymer 00 Equiv. to Rosie-Colac e. Senokot S 2022-0 Yes Notes: Memori a 7-18 (Same as l 02:00: Senokot-S) [place] 00 Equiv. to Rosie-Colac e. calcium-vit 0 Yes 1 tab, PO, Memoria woods D 500 7-17 BID, # 60 l mg-400 intl 22:07: tab, 2 Herm pema units oral 00 Refill(s), tablet Pharmacy: [facility] 482, 152.4, cm, 03/19/23 13:10:00 CDT, Height, 45.455, kg, 03/19/23 13:10:00 CDT, Weight calcium-vit 0 Yes 1 tab, PO, Memoria woods D 500 7-17 BID, # 60 l mg-400 intl 22:07: tab, 2 Herm pema units oral 00 Refill(s), tablet Pharmacy: [facility] 482, 152.4, cm, 03/19/23 13:10:00 CDT, Height, 45.455, kg, 03/19/23 13:10:00 CDT, Weight calcium-vit 0 Yes 1 tab, PO, Memoria woods D 500 7-17 BID, # 60 l mg-400 intl 22:07: tab, 2 Herm pema units oral 00 Refill(s), tablet Pharmacy: [facility] 482, 152.4, cm, 03/19/23 13:10:00 CDT, Height, 45.455, kg, 03/19/23 13:10:00 CDT, Weight gabapentin Yes 100 mg = 1 M emoria 100 mg oral 7-17 cap, PO, l capsule 22:05: Q8Hnow, 0 Cassandra nn 00 Refill(s) haloperidol 0 Yes 5 mg = 1 Me moria 5 mg oral 7-17 tab, PO, l tablet 22:05: Bedtime, # Cassandra nn 00 30 tab, 1 Refill(s), Pharmacy: [facility] 482, 152.4, cm, 03/19/23 13:10:00 CDT, Height, 45.455, kg, 03/19/23 13:10:00 CDT, Weight gabapentin 2022-0 Yes 100 mg = 1 M emoria 100 mg oral 7-17 cap, PO, l capsule 22:05: Q8Hnow, 0 Cassandra nn 00 Refill(s) haloperidol 2022-0 Yes 5 mg = 1 Me moria 5 mg oral 7-17 tab, PO, l tablet 22:05: Bedtime, # Cassandra nn 00 30 tab, 1 Refill(s), Pharmacy: [facility] 482, 152.4, cm, 03/19/23 13:10:00 CDT, Height, 45.455, kg, 03/19/23 13:10:00 CDT, Weight gabapentin 2022-0 Yes 100 mg = 1 M emoria 100 mg oral 7-17 cap, PO, l capsule 22:05: Q8Hnow, 0 Cassandra nn 00 Refill(s) haloperidol 2022-0 Yes 5 mg = 1 Me moria 5 mg oral 7-17 tab, PO, l tablet 22:05: Bedtime, # Cassandra nn 00 30 tab, 1 Refill(s), Pharmacy: [facility] 482, 152.4, cm, 03/19/23 13:10:00 CDT, Height, 45.455, kg, 03/19/23 13:10:00 CDT, Weight levothyroxi 2022-0 Yes 50 Memori a ne 50 mcg 7-17 microgram l (0.05 mg) 22:04: = 1 tab, Herm pema oral tablet 00 PO, Q630AM, # 30 tab, 2 Refill(s), Pharmacy: [facility] 482, 152.4, cm, 03/19/23 13:10:00 CDT, Height, 45.455, kg, 03/19/23 13:10:00 CDT, Weight aspirin 81 3-0 Yes 81 mg = 1 Me moria mg tablet, 7-17 tab, PO, l enteric 22:04: Daily, # Edward n coated 00 30 tab, 2 Refill(s), Pharmacy: [facility] 482, 152.4, cm, 03/19/23 13:10:00 CDT, Height, 45.455, kg, 03/19/23 13:10:00 CDT, Weight levothyroxi 2022-0 Yes 50 Memori a ne 50 mcg 7-17 microgram l (0.05 mg) 22:04: = 1 tab, Herm pema oral tablet 00 PO, Q630AM, # 30 tab, 2 Refill(s), Pharmacy: [facility] 482, 152.4, cm, 03/19/23 13:10:00 CDT, Height, 45.455, kg, 03/19/23 13:10:00 CDT, Weight aspirin 81 2022-0 Yes 81 mg = 1 Me moria mg tablet, 7-17 tab, PO, l enteric 22:04: Daily, # Edward n coated 00 30 tab, 2 Refill(s), Pharmacy: [facility] 482, 152.4, cm, 03/19/23 13:10:00 CDT, Height, 45.455, kg, 03/19/23 13:10:00 CDT, Weight levothyroxi 2022-0 Yes 50 Memori a ne 50 mcg 7-17 microgram l (0.05 mg) 22:04: = 1 tab, Herm pema oral tablet 00 PO, Q630AM, # 30 tab, 2 Refill(s), Pharmacy: [facility] 482, 152.4, cm, 03/19/23 13:10:00 CDT, Height, 45.455, kg, 03/19/23 13:10:00 CDT, Weight aspirin 81 2022-0 Yes 81 mg = 1 Me moria mg tablet, 7-17 tab, PO, l enteric 22:04: Daily, # Edward n coated 00 30 tab, 2 Refill(s), Pharmacy: [facility] 482, 152.4, cm, 03/19/23 13:10:00 CDT, Height, 45.455, kg, 03/19/23 13:10:00 CDT, Weight lactulose 0 Yes Notes: Memori a 10 g/15 mL 7-17 (Same l oral syrup 18:00: as:Chronul H erm ac) lactulose 2022-0 Yes Notes: Memori a 10 g/15 mL 7-17 (Same l oral syrup 18:00: as:Chronul H erm ac) lactulose Yes Notes: Memori a 10 g/15 mL 7-17 (Same l oral syrup 18:00: as:Chron ac) MiraLax No Notes: Memoria 7-17 Dissolve l 14:17: in 8 oz of [place] 00 water or juice. (Same as: Miralax) Dulcolax No Notes: Memoria Laxative 7-17 (Same As: l 14:17: Dulcolax, Alec 00 Bisco-Lax) Fleet Enema No 230 mL, Mem oria Extra 7-17 Route: NM, l 14:17: Drug Form: [place] 00 PRASHANT, Dosing Weight 45.455, kg, ONCE, Start date: 03/27/23 9:17:00 CDT, Stop date: 03/27/23 9:17:00 CDT, 0 MiraLax No Notes: Memoria 7-17 Dissolve l 14:17: in 8 oz of Alec 00 water or juice. (Same as: Miralax) Dulcolax No Notes: Memoria Laxative 7-17 (Same As: l 14:17: Dulcolax, Alec 00 Bisco-Lax) Fleet Enema No 230 mL, Mem oria Extra 7-17 Route: NM, l 14:17: Drug Form: [place] 00 PRASHANT, Dosing Weight 45.455, kg, ONCE, Start date: 03/27/23 9:17:00 CDT, Stop date: 03/27/23 9:17:00 CDT, 0 MiraLax No Notes: Memoria 7-17 Dissolve l 14:17: in 8 oz of [place] 00 water or juice. (Same as: Miralax) Dulcolax No Notes: Memoria Laxative 7-17 (Same As: l 14:17: Dulcolax, [place] 00 Bisco-Lax) Fleet Enema No 230 mL, Mem oria Extra 7-17 Route: NM, l 14:17: Drug Form: Alec 00 PRASHANT, Dosing Weight 45.455, kg, ONCE, Start date: 03/27/23 9:17:00 CDT, Stop date: 03/27/23 9:17:00 CDT, 0 Fleet Enema No 133 mL, Mem oria Extra 7-16 Route: NM, l 23:02: Drug Form: Alec 00 PRASHANT, Dosing Weight 45.455, kg, ONCE, Start date: 03/26/23 18:02:00 CDT, Stop date: 03/26/23 18:02:00 CDT, 0 Fleet Enema No 133 mL, Mem oria Extra 7-16 Route: NM, l 23:02: Drug Form: [place] PRASHANT, Dosing Weight 45.455, kg, ONCE, Start date: 03/26/23 18:02:00 CDT, Stop date: 03/26/23 18:02:00 CDT, 0 Fleet Enema No 133 mL, Mem oria Extra 7-16 Route: NM, l 23:02: Drug Form: Alec PRASHANT, Dosing Weight 45.455, kg, ONCE, Start date: 03/26/23 18:02:00 CDT, Stop date: 03/26/23 18:02:00 CDT, 0 aspirin Yes Notes: Do Memor ia 7-15 not crush l 14:00: or chew. Alec 00 (Same As: Ecotrin) aspirin Yes Notes: Do Memor ia 7-15 not crush l 14:00: or chew. Alec 00 (Same As: Ecotrin) aspirin Yes Notes: Do Memor ia 7-15 not crush l 14:00: or chew. Clymer 00 (Same As: Ecotrin) Haldol Yes Notes: Memoria 7-15 (Same as: l 02:00: Haldol) Haldol Yes Notes: Memoria 7-15 (Same as: l 02:00: Haldol) Haldol Yes Notes: Memoria 7-15 (Same as: l 02:00: Haldol) Alec 00 NS (Bolus) No 1,000 mL, Me moria IV 7-14 1,000 l 22:43: ml/hr, Infuse Over: 1 hr, Route: IV, 1,000, Drug form: INJ, ONCE, Priority: STAT, Dosing Weight 45.455 kg, Start date: 03/24/23 17:43:00 CDT, Stop date: 03/24/23 17:43:00 CDT, 0 NS (Bolus) No 1,000 mL, Me moria IV 7-14 1,000 l 22:43: ml/hr, Infuse Over: 1 hr, Route: IV, 1,000, Drug form: INJ, ONCE, Priority: STAT, Dosing Weight 45.455 kg, Start date: 03/24/23 17:43:00 CDT, Stop date: 03/24/23 17:43:00 CDT, 0 NS (Bolus) No 1,000 mL, Me moria IV 7-14 1,000 l 22:43: ml/hr, Infuse Over: 1 hr, Route: IV, 1,000, Drug form: INJ, ONCE, Priority: STAT, Dosing Weight 45.455 kg, Start date: 03/24/23 17:43:00 CDT, Stop date: 03/24/23 17:43:00 CDT, 0 hydrOXYzine Yes Notes: Alex ronald hydrochlori 7-14 (Same as: l de 25 mg 12:52: Atarax) Edward n oral tablet 00 Avoid alcohol. hydrOXYzine Yes Notes: Alex ronald hydrochlori 7-14 (Same as: l de 25 mg 12:52: Atarax) Edward n oral tablet 00 Avoid alcohol. hydrOXYzine Yes Notes: Alex ronald hydrochlori 7-14 (Same as: l de 25 mg 12:52: Atarax) Edward n oral tablet 00 Avoid alcohol. carvedilol No Notes: Memor ia 7-14 Give with l 12:51: food. Alec 00 (Same As: Coreg) carvedilol No Notes: Memor ia 7-14 Give with l 12:51: food. (Same As: Coreg) carvedilol No Notes: Memor ia 7-14 Give with l 12:51: food. Cly[place] 00 (Same As: Coreg) midodrine Yes Notes: Memori a 7-13 (Same l 20:53: as:Proamat Alec 00 ine) midodrine Yes Notes: Memori a 7-13 (Same l 20:53: as:Proamat [place] 00 ine) midodrine Yes Notes: Memori a 7-13 (Same l 20:53: as:Proamat [place] 00 ine) normal No 1,000 mL, Memori a saline 0.9% 7-13 1,000 l (Bolus) IV 17:32: ml/hr, Cassandra nn 00 Infuse Over: 1 hr, Route: IV, 1,000, Drug form: INJ, ONCE, Priority: STAT, Dosing Weight 45.455 kg, Start date: 03/23/23 12:32:00 CDT, Stop date: 03/23/23 12:32:00 CDT, 0 normal No 1,000 mL, Memori a saline 0.9% 7-13 1,000 l (Bolus) IV 17:32: ml/hr, Cassandra nn 00 Infuse Over: 1 hr, Route: IV, 1,000, Drug form: INJ, ONCE, Priority: STAT, Dosing Weight 45.455 kg, Start date: 03/23/23 12:32:00 CDT, Stop date: 03/23/23 12:32:00 CDT, 0 normal No 1,000 mL, Memori a saline 0.9% 7-13 1,000 l (Bolus) IV 17:32: ml/hr, Cassandra nn 00 Infuse Over: 1 hr, Route: IV, 1,000, Drug form: INJ, ONCE, Priority: STAT, Dosing Weight 45.455 kg, Start date: 03/23/23 12:32:00 CDT, Stop date: 03/23/23 12:32:00 CDT, 0 Sodium 2022-0 Yes 250 mL, Memoria Chloride 7-13 Rate: l 0.9% 01:01: Titrate, Alec (titrate) 00 Dosing 250 mL Weight 45.455, kg, Route: IV, Total Volume: 250, Start Date: 03/22/23 20:01:00 CDT, Duration: 30 day, Stop date: 04/21/23 20:00:00 CDT, Replace Every: 24 hr, 0 Sodium 2023-0 Yes 250 mL, Memoria Chloride 7-13 Rate: l 0.9% 01:01: Titrate, Alec (titrate) 00 Dosing 250 mL Weight 45.455, kg, Route: IV, Total Volume: 250, Start Date: 03/22/23 20:01:00 CDT, Duration: 30 day, Stop date: 04/21/23 20:00:00 CDT, Replace Every: 24 hr, 0 Sodium 3-0 Yes 250 mL, Memoria Chloride 7-13 Rate: l 0.9% 01:01: Titrate, Alec (titrate) 00 Dosing 250 mL Weight 45.455, kg, Route: IV, Total Volume: 250, Start Date: 03/22/23 20:01:00 CDT, Duration: 30 day, Stop date: 04/21/23 20:00:00 CDT, Replace Every: 24 hr, 0 midodrine No Notes: Memori a 7-12 (Same l 23:25: as:Proamat [place] 00 ine) midodrine No Notes: Memori a 7-12 (Same l 23:25: as:Proamat [place] 00 ine) midodrine No Notes: Memori a 7-12 (Same l 23:25: as:Proamat Alec 00 ine) NS (Bolus) No 1,000 mL, Me moria IV 7-12 1,000 l 23:22: ml/hr, [place] 00 Infuse Over: 1 hr, Route: IV, 1,000, Drug form: INJ, ONCE, Priority: STAT, Dosing Weight 45.455 kg, Start date: 03/22/23 18:22:00 CDT, Stop date: 03/22/23 18:22:00 CDT, 0 NS (Bolus) No 1,000 mL, Me moria IV 7-12 1,000 l 23:22: ml/hr, Cly[place] 00 Infuse Over: 1 hr, Route: IV, 1,000, Drug form: INJ, ONCE, Priority: STAT, Dosing Weight 45.455 kg, Start date: 03/22/23 18:22:00 CDT, Stop date: 03/22/23 18:22:00 CDT, 0 NS (Bolus) No 1,000 mL, Me moria IV 7-12 1,000 l 23:22: ml/hr, [place] 00 Infuse Over: 1 hr, Route: IV, 1,000, Drug form: INJ, ONCE, Priority: STAT, Dosing Weight 45.455 kg, Start date: 03/22/23 18:22:00 CDT, Stop date: 03/22/23 18:22:00 CDT, 0 Tylenol Yes Notes: Do Memor ia 7-12 not exceed l 17:06: 4 gm/day. Clymer (Same as: Tylenol) Tylenol Yes Notes: Do Memor ia 7-12 not exceed l 17:06: 4 gm/day. Alec 00 (Same as: Tylenol) Tylenol Yes Notes: Do Memor ia 7-12 not exceed l 17:06: 4 gm/day. Alec 00 (Same as: Tylenol) ceFAZolin No Notes: Memori a (SCIP) + 7-10 (Same As: l sterile 21:00: Ancef, [place] water 20 mL 00 Kefzol) MEDICATION WASTE Product Size: 1000 mg Product Wasted: ___ mg ceFAZolin No Notes: Memori a (SCIP) + 7-10 (Same As: l sterile 21:00: Ancef, [place] water 20 mL 00 Kefzol) MEDICATION WASTE Product Size: 1000 mg Product Wasted: ___ mg ceFAZolin No Notes: Memori a (SCIP) + 7-10 (Same As: l sterile 21:00: Ancef, Alec water 20 mL 00 Kefzol) MEDICATION WASTE Product Size: 1000 mg Product Wasted: ___ mg albumin No Notes: Memoria human 5% 7-10 LOT#: l intravenous 14:07: Clymer solution 00 ___Mfg:___ ___ (Same as: Albuminar) "blood product derivative " WASTE: F/P - Red; E -Red MEDICATION WASTE Product Size: 25 gm Product Wasted: _0__ gm albumin No Notes: Joy human 5% 7-10 LOT#: l intravenous 14:07: Alec solution 00 ___Mfg:___ ___ (Same as: Albuminar) "blood product derivative " WASTE: F/P - Red; E -Red MEDICATION WASTE Product Size: 25 gm Product Wasted: _0__ gm albumin No Notes: Memyfn human 5% 7-10 LOT#: l intravenous 14:07: Alec solution 00 ___Mfg:___ ___ (Same as: Albuminar) [...] Memoria carbonate 7-10 500mg l 14:00: elemental Clymer 00 calcium = 1250mg calcium carbonate. Contains 500mg elemental calcium. (Same As: OsCal 500) cholecalcif Yes Notes: Alex ronald sallie 7-10 Same as : l 14:00: Vitamin D3 OLANZapine No Notes: Memor ia 7-10 (Same as: l 14:00: ZyPREXA) sertraline No Notes: Memor ia 7-10 (Same as: l 14:00: Zoloft) levothyroxi Yes Notes: Alex ronald ne 7-10 Take 1 l 14:00: hour Alec 00 before or 2 hours after meal; Enteral feeds may interefere with the absorption of this medication .(Same as:Levothr oid, Synthroid) Norvasc No Notes: Memoria 7-10 (Same as: l 14:00: Norvasc) Clymer 00 calcium Yes Notes: Memoria carbonate 7-10 500mg l 14:00: elemental Alec 00 calcium = 1250mg calcium carbonate. Contains 500mg elemental calcium. (Same As: OsCal 500) cholecalcif Yes Notes: Alex ronald sallie 7-10 Same as : l 14:00: Vitamin D3 OLANZapine No Notes: Memor ia 7-10 (Same as: l 14:00: ZyPREXA) levothyroxi Yes Notes: Alex ronald ne 7-10 Take 1 l 14:00: hour Clymer 00 before or 2 hours after meal; Enteral feeds may interefere with the absorption of this medication .(Same as:Levothr oid, Synthroid) sertraline No Notes: Memor ia 7-10 (Same as: l 14:00: Zoloft) Norvasc No Notes: Memoria 7-10 (Same as: l 14:00: Norvasc) calcium Yes Notes: Memoria carbonate 7-10 500mg l 14:00: elemental calcium = 1250mg calcium carbonate. Contains 500mg [...] 7-10 Route: l INJ 13:51: IVP, Drug Alec 00 form: INJ, ONCE, Dosing Weight 45.455, kg, Start date: 03/20/23 8:51:00 CDT, Stop date: 03/20/23 8:51:00 CDT metoprolol 2023-0 No 2.5 mg, Alex ronald 5 mg/5 ml 7-10 Route: l INJ 13:51: IVP, Drug Clymer form: INJ, ONCE, Dosing Weight 45.455, kg, Start date: 03/20/23 8:51:00 CDT, Stop date: 03/20/23 8:51:00 CDT metoprolol 2023-0 No 2.5 mg, Alex ronald 5 mg/5 ml 7-10 Route: l INJ 13:51: IVP, Drug [place] 00 form: INJ, ONCE, Dosing Weight 45.455, kg, Start date: 03/20/23 8:51:00 CDT, Stop date: 03/20/23 8:51:00 CDT metoprolol 2023-0 No 2.5 mg, Alex ronald 5 mg/5 ml 7-10 Route: l INJ 13:35: IVP, Drug Cly[place] 00 form: INJ, ONCE, Dosing Weight 45.455, kg, Start date: 03/20/23 8:35:00 CDT, Stop date: 03/20/23 8:35:00 CDT metoprolol 2023-0 No 2.5 mg, Alex ronald 5 mg/5 ml 7-10 Route: l INJ 13:35: IVP, Drug Alec 00 form: INJ, ONCE, Dosing Weight 45.455, kg, Start date: 03/20/23 8:35:00 CDT, Stop date: 03/20/23 8:35:00 CDT metoprolol 2023-0 No 2.5 mg, Alex ronald 5 mg/5 ml 7-10 Route: l INJ 13:35: IVP, Drug Cly[place] 00 form: INJ, ONCE, Dosing Weight 45.455, kg, Start date: 03/20/23 8:35:00 CDT, Stop date: 03/20/23 8:35:00 CDT metoprolol 2023-0 No 2 mg, Memori a 5 mg/5 ml 7-10 Route: l INJ 13:10: IVP, Drug [place] 00 form: INJ, ONCE, Dosing Weight 45.455, kg, Start date: 03/20/23 8:10:00 CDT, Stop date: 03/20/23 8:10:00 CDT metoprolol 2023-0 No 2 mg, Memori a 5 mg/5 ml 7-10 Route: l INJ 13:10: IVP, Drug form: INJ, ONCE, Dosing Weight 45.455, kg, Start date: 03/20/23 8:10:00 CDT, Stop date: 03/20/23 8:10:00 CDT metoprolol 2023-0 No 2 mg, Memori a 5 mg/5 ml 7-10 Route: l INJ 13:10: IVP, Drug form: INJ, ONCE, Dosing Weight 45.455, kg, Start date: 03/20/23 8:10:00 CDT, Stop date: 03/20/23 8:10:00 CDT metoprolol 2023-0 No 3 mg, Memori a 5 mg/5 ml 7-10 Route: IV, l INJ 12:52: ONCE, Dosing Weight 45.455, kg, Start date: 03/20/23 7:52:00 CDT, Stop date: 03/20/23 7:52:00 CDT metoprolol 2023-0 No 3 mg, Memori a 5 mg/5 ml 7-10 Route: IV, l INJ 12:52: ONCE, Dosing Weight 45.455, kg, Start date: 03/20/23 7:52:00 CDT, Stop date: 03/20/23 7:52:00 CDT metoprolol 2023-0 No 3 mg, Memori a 5 mg/5 ml 7-10 Route: IV, l INJ 12:52: ONCE, Dosing Weight 45.455, kg, Start date: 03/20/23 7:52:00 CDT, Stop date: 03/20/23 7:52:00 CDT lidocaine 2023-0 No Route: IV, Me moria (ANES) 7-10 Drug form: l 12:39: INJ, ONCE, Stop date: 03/20/23 7:39:00 CDT propofol 3-0 No Route: IV, Mem oria (ANES) 7-10 Drug form: l 12:39: INJ, ONCE, Stop date: 03/20/23 7:39:00 CDT ondansetron 2022-0 No Route: IV, Memoria (ANES) 7-10 Drug form: l 12:39: INJ, ONCE, Stop date: 03/20/23 7:39:00 CDT dexamethaso 2022-0 No Route: IV, Memoria ne (ANES) 7-10 Drug form: l 12:39: INJ, ONCE, Stop date: 03/20/23 7:39:00 CDT phenylephri 2022-0 No Route: IV, Memoria ne (ANES) 7-10 Drug form: l 12:39: INJ, ONCE, Stop date: 03/20/23 7:39:00 CDT lidocaine 2022-0 No Route: IV, Me moria (ANES) 7-10 Drug form: l 12:39: INJ, ONCE, Stop date: 03/20/23 7:39:00 CDT propofol 2022-0 No Route: IV, Mem oria (ANES) 7-10 Drug form: l 12:39: INJ, ONCE, Stop date: 03/20/23 7:39:00 CDT ondansetron 2022-0 No Route: IV, Memoria (ANES) 7-10 Drug form: l 12:39: INJ, ONCE, Stop date: 03/20/23 7:39:00 CDT dexamethaso 2022-0 No Route: IV, Memoria ne (ANES) 7-10 Drug form: l 12:39: INJ, ONCE, Stop date: 03/20/23 7:39:00 CDT phenylephri 2022-0 No Route: IV, Memoria ne (ANES) 7-10 Drug form: l 12:39: INJ, ONCE, Stop date: 03/20/23 7:39:00 CDT lidocaine 2022-0 No Route: IV, Me moria (ANES) 7-10 [...] l mg 12:36: Roxicodone ) release tablet S No Notes: [facility] HYDROmorpho 7-10 Same as: l ne 12:36: Dilaudid No Notes: [facility] naloxone 7-10 Same as l 12:36: Narcan No Notes: [facility] ondansetron 7-10 (Same as: l 12:36: Zofran) MEDICATION WASTE Product Size: 4 mg Product Wasted: ___ mg ANES No Notes: [facility] oxyCODONE 5 7-10 (Same as: l mg 12:36: Roxicodone immediate ) release tablet No Notes: [facility] HYDROmorpho 7-10 Same as: l ne 12:36: Dilaudid No Notes: [facility] naloxone 7-10 Same as l 12:36: Narcan No Notes: [facility] ondansetron 7-10 (Same as: l 12:36: Zofran) MEDICATION WASTE Product Size: 4 mg Product Wasted: ___ mg ANES No Notes: [facility] oxyCODONE 5 7-10 (Same as: l mg 12:36: Roxicodone ) release tablet ANES No Notes: [facility] HYDROmorpho 7-10 Same as: l ne 12:36: Dilaudid No Notes: [facility] naloxone 7-10 Same as l 12:36: Narcan S No Notes: [facility] ondansetron 7-10 (Same as: l 12:36: Zofran) MEDICATION WASTE Product Size: 4 mg Product Wasted: ___ mg glycopyrrol No Route: IV, Memoria ate (ANES) 7-10 Drug form: l 12:29: INJ, ONCE, Stop date: 03/20/23 7:29:00 CDT glycopyrrol No Route: IV, Memoria ate (ANES) 7-10 Drug form: l 12:29: INJ, ONCE, Stop date: 03/20/23 7:29:00 CDT glycopyrrol No Route: IV, Memoria ate (ANES) [...] INJ, ONCE, Stop date: 03/20/23 7:19:00 CDT fentaNYL No Route: IV, Mem oria (ANES) 7-10 Drug form: l 12:19: INJ, ONCE, Stop date: 03/20/23 7:19:00 CDT ceFAZolin 2022-0 No Route: IV, Me moria (ANES) 7-10 Drug form: l 12:19: INJ, ONCE, Stop date: 03/20/23 7:19:00 CDT ePHEDrine 2022-0 No Route: IV, Me moria (ANES) 7-10 Drug form: l 12:19: INJ, ONCE, Stop date: 03/20/23 7:19:00 CDT fentaNYL 2022-0 No Route: IV, Mem oria (ANES) 7-10 Drug form: l 12:19: INJ, ONCE, Stop date: 03/20/23 7:19:00 CDT ceFAZolin 2022-0 No Route: IV, Me moria (ANES) 7-10 Drug form: l 12:19: INJ, ONCE, Stop date: 03/20/23 7:19:00 CDT ePHEDrine 2022-0 No Route: IV, Me moria (ANES) 7-10 Drug form: l 12:19: INJ, ONCE, Stop date: 03/20/23 7:19:00 CDT Lactated 2022-0 No Route: IV, Mem oria Ringers 7-10 Total l Injection 11:30: Volume: Cassandra nn IV (ANES) 00 1,000, 1000 mL Start date: 03/20/23 6:30:00 CDT, Stop date: 03/20/23 7:30:00 CDT Lactated 2022-0 No Route: IV, Mem oria Ringers 7-10 Total l Injection 11:30: Volume: Cassandra nn IV (ANES) 00 1,000, 1000 mL Start date: 03/20/23 6:30:00 CDT, Stop date: 03/20/23 7:30:00 CDT Lactated 2022-0 No Route: IV, Mem oria Ringers 7-10 Total l Injection 11:30: Volume: Cassandra nn IV (ANES) 00 1,000, 1000 mL Start date: 03/20/23 6:30:00 CDT, Stop date: 03/20/23 7:30:00 CDT mirtazapine 2022-0 No Notes: Alex ronald 7-10 (Same l 02:00: as:Remeron ) mirtazapine 2022-0 No Notes: Alex ronald 7-10 (Same l 02:00: as:Remeron ) mirtazapine 2022-0 No Notes: Alex ronald 7-10 (Same l 02:00: as:Remeron ) docusate 0 No 100 mg, 1 Alex ronald 7-09 cap, l 22:00: Route: PO, Drug form: CAP, BID, Dosing Weight 45.455, kg, Start date: 03/19/23 17:00:00 CDT, Duration: 30 day, Stop date: 04/18/23 9:00:00 CDT, 0 risperiDONE 2022-0 No Notes: Alex ronald 7-09 (Same as: l 22:00: Risperdal) famotidine 0 Yes Notes: Memor ia 20 mg oral 7- (Same as: l tablet 22:00: Pepcid) docusate 0 No 100 mg, 1 Alex ronald 7-09 cap, l 22:00: Route: PO, Drug form: CAP, BID, Dosing Weight 45.455, kg, Start date: 03/19/23 17:00:00 CDT, Duration: 30 day, Stop date: 04/18/23 9:00:00 CDT, 0 risperiDONE 2022-0 No Notes: Alex ronald 7-09 (Same as: l 22:00: Risperdal) famotidine 2022-0 Yes Notes: Memor ia 20 mg oral 7- (Same as: l tablet 22:00: Pepcid) docusate 0 No 100 mg, 1 Alex ronald 7-09 cap, l 22:00: Route: PO, Drug form: CAP, BID, Dosing Weight 45.455, kg, Start date: 03/19/23 17:00:00 CDT, Duration: 30 day, Stop date: 04/18/23 9:00:00 CDT, 0 risperiDONE 2022-0 No Notes: Alex ronald 7-09 (Same as: l 22:00: Risperdal) famotidine Yes Notes: Memor ia 20 mg oral 7- (Same as: l tablet 22:00: Pepcid) ceFAZolin + 2022-0 Yes Notes: Alex ronald sterile 7- (Same As: l water 20 mL 17:00: Ancef, Herm pema Kefzol) MEDICATION WASTE Product Size: 1000 mg Product Wasted: 0___ mg enoxaparin 2022-0 Yes Notes: Memor ia 7- (Same as: l 17:00: Lovenox) ceFAZolin + 2022-0 Yes Notes: Alex ronald sterile 7- (Same As: l water 20 mL 17:00: Ancef, Herm pema 00 Kefzol) MEDICATION WASTE Product Size: 1000 mg Product Wasted: 0___ mg enoxaparin 2022-0 Yes Notes: Memor ia 7- (Same as: l 17:00: Lovenox) ceFAZolin + 2022-0 Yes Notes: Alex ronald sterile 7- (Same As: l water 20 mL 17:00: Ancef, Herm pema 00 Kefzol) MEDICATION WASTE Product Size: 1000 mg Product Wasted: 0___ mg enoxaparin 2022-0 Yes Notes: Memor ia 7-09 (Same as: l 17:00: Lovenox) hydrALAZINE 2022- Yes Notes: Alex ronald 7-09 (Same as: l 16:25: Apresoline ) hydrALAZINE 2022-0 Yes Notes: Alex ronald 7-09 (Same as: l 16:25: Apresoline ) hydrALAZINE 2022-0 Yes Notes: Alex ronald 7-09 (Same as: l 16:25: Apresoline ) oxyCODONE 5 No Notes: Alex ronald mg/5 mL 7- (Same as: l oral 16:22: 'Roxicodon [place] solution 00 e) bisacodyl No Notes: Memori a 7- (Same As: l 16:22: Dulcolax, [place] 00 Bisco-Lax) melatonin Yes Notes: Memori a 7- (Same as: l 16:22: Melatonin) [place] 00 oxyCODONE 5 No Notes: Alex ronald mg/5 mL 03-19 (Same as: l oral 16:22: 'Roxicodon [place] solution 00 e) bisacodyl No Notes: Memori a 7- (Same As: l 16:22: Dulcolax, [place] 00 Bisco-Lax) melatonin Yes Notes: Memori a 7- (Same as: l 16:22: Melatonin) [place] 00 oxyCODONE 5 No Notes: Alex ronlad mg/5 mL 03-19 (Same as: l oral 16:22: 'Roxicodon [place] solution 00 e) bisacodyl No Notes: Memori a 7- (Same As: l 16:22: Dulcolax, [place] 00 Bisco-Lax) melatonin Yes Notes: Memori a 7- (Same as: l 16:22: Melatonin) [place] 00 acetaminoph Yes Notes: Max Memoria en 7-09 acetaminop l 16:21: hen 4000 Alec 00 mg/day (4 gm/day). (Same as: Tylenol Extra Strength) gabapentin Yes Notes: Memor ia 7- (Same as: l 16:21: Neurontin) Alec 00 acetaminoph Yes Notes: Max [facility]oria en 7-09 acetaminop l 16:21: hen 4000 Alec 00 mg/day (4 gm/day). (Same as: Tylenol Extra Strength) gabapentin Yes Notes: Memor ia 7- (Same as: l 16:21: Neurontin) [place] 00 acetaminoph Yes Notes: Max [facility]oria en 7-09 acetaminop l 16:21: hen 4000 [place] 00 mg/day (4 gm/day). (Same as: Tylenol Extra Strength) gabapentin Yes Notes: Memor ia 7- (Same as: l 16:21: Neurontin) Alec 00 mirtazapine 3-0 No 7.5 mg = 1 Memoria 7.5 mg oral 7-09 tab, PO, l tablet 16:18: Bedtime, # Cassandra nn 00 30 tab, 0 Refill(s) levothyroxi 3-0 No 25 Memori a ne 25 mcg 7-09 microgram l (0.025 mg) 16:18: = 1 tab, Her lopez oral tablet 00 PO, Daily, # 30 tab, 0 Refill(s) mirtazapine 3-0 No 7.5 mg = 1 Memoria 7.5 mg oral 7-09 tab, PO, l tablet 16:18: Bedtime, # Cassandra nn 00 30 tab, 0 Refill(s) levothyroxi 3-0 No 25 Memori a ne 25 mcg 7-09 microgram l (0.025 mg) 16:18: = 1 tab, Her lopez oral tablet 00 PO, Daily, # 30 tab, 0 Refill(s) mirtazapine 3-0 No 7.5 mg = 1 Memoria 7.5 mg oral 7-09 tab, PO, l tablet 16:18: Bedtime, # Cassandra nn 00 30 tab, 0 Refill(s) levothyroxi 3-0 No 25 Memori a ne 25 mcg 7-09 microgram l (0.025 mg) 16:18: = 1 tab, Her lopez oral tablet 00 PO, Daily, # 30 tab, 0 Refill(s) sertraline 3-0 No 50 mg = 1 Me moria 50 mg oral 7-09 tab, PO, l tablet 16:17: Daily, # [place] 00 30 tab, 0 Refill(s) risperiDONE 3-0 No 1 mg = 2 Me moria 0.5 mg oral 7-09 tab, PO, l tablet 16:17: BID, # 120 Cassandra nn 00 tab, 0 Refill(s) OLANZapine 3-0 No 5 mg = 1 Mem oria 5 mg oral 7-09 tab, PO, l tablet 16:17: Daily, # [place] 00 30 tab, 0 Refill(s) sertraline 3-0 No 50 mg = 1 Me moria 50 mg oral 7-09 tab, PO, l tablet 16:17: Daily, # Alec 00 30 tab, 0 Refill(s) risperiDONE 2022-0 No 1 mg = 2 Me moria 0.5 mg oral 7-09 tab, PO, l tablet 16:17: BID, # 120 Cassandra nn 00 tab, 0 Refill(s) OLANZapine 2022-0 No 5 mg = 1 Mem oria 5 mg oral 7-09 tab, PO, l tablet 16:17: Daily, # [place] 00 30 tab, 0 Refill(s) sertraline 0 No 50 mg = 1 Me moria 50 mg oral 7-09 tab, PO, l tablet 16:17: Daily, # Alec 00 30 tab, 0 Refill(s) risperiDONE 2022-0 No 1 mg = 2 Me moria 0.5 mg oral 7-09 tab, PO, l tablet 16:17: BID, # 120 Cassandra nn 00 tab, 0 Refill(s) OLANZapine 2022-0 No 5 mg = 1 Mem oria 5 mg oral 7-09 tab, PO, l tablet 16:17: Daily, # Alec 00 30 tab, 0 Refill(s) Dilaudid 2022-0 No Notes: Memoria 7-09 Same as: l 14:05: Dilaudid Alec 00 Dilaudid 2022-0 No Notes: Memoria 7-09 Same as: l 14:05: Dilaudid [place] 00 Dilaudid 2022-0 No Notes: Memoria 7-09 Same as: l 14:05: Dilaudid Alec 00 HYDROcodone Yes 1{tbl} Take [address] -acetaminop 7-30 tablet by Isreal ricci ([facility] 23:08: mouth Medica l 10-325) 16 every 6 Center 10-325 mg (six) per tablet hours as needed for Pain. aspirin 81 Yes 81mg QD Take [address] [facility] 7-[facility] tablet 23:08: daily. [address] BIOTIN ORAL 0 Yes QD Take [facility]:08: daily. [address] ZINC ORAL Yes QD Take by [facility] 23:08: daily. [address] HYDROcodone Yes 1{tbl} Take [address] -acetaminop 7-30 tablet by Isreal es hen ([facility] 23:08: mouth Medica l 10-325) 16 every 6 Center 10-325 mg (six) per tablet hours as needed for Pain. aspirin 81 2020-0 Yes 81mg QD Take [address] MG EC 7-30 by [facility] tablet 23:08: daily. [address] BIOTIN ORAL 2020-0 Yes QD Take [facility] 23:08: daily. [address] ZINC ORAL 2020-0 Yes QD Take by [facility]:08: daily. [address] HYDROcodone 2020-0 Yes 1{tbl} Take [address] -acetaminop 7-30 tablet by Isreal es hen ([facility] 23:08: mouth Medica l 10-325) 16 every 6 Center 10-325 mg (six) per tablet hours as needed for Pain. aspirin 81 2020-0 Yes 81mg QD Take [address] [facility] EC 7-30 [facility] tablet 23:08: daily. [address] BIOTIN ORAL 2020-0 Yes QD Take [facility]:08: daily. [address] ZINC ORAL 2020-0 Yes QD Take [facility]:08: daily. [address] HYDROcodone 2020-0 Yes 1{tbl} Take [address] -acetaminop 7-30 tablet by Isreal es hen ([facility] 23:08: mouth Medica l 10-325) 16 every 6 Center 10-325 mg (six) per tablet hours as needed for Pain. aspirin 81 2020-0 Yes 81mg QD Take [address] MG EC 7-30 by [facility] tablet 23:08: daily. [address] BIOTIN ORAL 2020-0 Yes QD Take by [facility] 23:08: daily. [address] ZINC ORAL 2020-0 Yes QD Take [facility]:08: daily. [address] HYDROcodone 2020-0 Yes 1{tbl} Take [address] -acetaminop 7-30 tablet by Isreal es hen ([facility] 23:08: mouth Medica l 10-325) 16 every 6 Center 10-325 mg (six) per tablet hours as needed for Pain. aspirin 81 0 Yes 81mg QD Take [address] [facility] EC 7-30 by [facility] tablet 23:08: daily. [address] BIOTIN ORAL 2020-0 Yes QD Take by [facility] 23:08: daily. [address] ZINC ORAL 0 Yes QD Take by [facility] 23:08: daily. [address] Vital Signs Vital Name Observation Time Observation Value Comments Source HEIGHT 2021-04-07 21:25:00 170.2 cm WEIGHT 2021-04-07 21:25:00 55.929 kg HEIGHT 2021-04-07 07:50:00 170.2 cm WEIGHT 2021-04-07 07:50:00 58.968 kg HEIGHT 2021-04-06 15:00:00 170.2 cm WEIGHT 2021-04-06 15:00:00 58.968 kg Systolic blood 2023-02-22 14:35:00 145 mm[Hg] [facility] pressure Diastolic blood 2023-02-22 14:35:00 76 mm[Hg] [facility] Heart rate 2023-02-22 14:35:00 80 /min [facility] Body temperature 2023-02-22 14:35:00 36.78 Maria Del Carmen [facility] Respiratory rate 2023-02-22 14:35:00 18 /min [facility] Oxygen saturation in 2023-02-22 14:35:00 98 /min [facility] Arterial blood by Pulse oximetry Body height 2023-02-21 06:05:00 157.5 cm [facility] Body weight 2023-02-21 06:05:00 53.071 kg [facility] BMI 2023-02-21 06:05:00 21.40 kg/m2 [facility] HEIGHT 2021-04-07 21:25:00 170.2 cm WEIGHT 2021-04-07 21:25:00 55.929 kg HEIGHT 2021-04-07 07:50:00 170.2 cm WEIGHT 2021-04-07 07:50:00 58.968 kg HEIGHT 2021-04-06 15:00:00 170.2 cm WEIGHT 2021-04-06 15:00:00 58.968 kg Systolic blood 2023-05-02 03:14:00 119 mm[Hg] [facility] pressure Diastolic blood 2023-05-02 03:14:00 82 mm[Hg] [facility] pressure Heart rate 2023-05-02 03:14:00 80 /min [facility] Body temperature 2023-05-02 03:14:00 36.67 Maria Del Carmen [facility] Respiratory rate 2023-05-02 03:14:00 17 /min [facility] Oxygen saturation in 2023-05-02 03:14:00 98 /min [facility] Arterial blood by Pulse oximetry Body height 2023-04-29 11:20:00 170.2 cm [facility] Body weight 2023-04-29 11:20:00 48.535 kg [facility] BMI 2023-04-29 11:20:00 16.76 kg/m2 [facility] Height 2023-04-11 15:01:00 5 [ft_i] [facility] Weight 2023-04-11 15:01:00 [facility] Heart Rate 2023-04-11 12:46:16 [facility] Systolic (mm Hg) 2023-04-11 12:46:01 Alex rial Alec Diastolic (mm Hg) 2023-04-11 12:46:01 Mem orial [place] Temperature Oral (F) 2023-04-11 12:45:41 97.9 [facility] Heart Rate 2023-04-10 06:08:16 [facility] [place] Systolic (mm Hg) 2023-04-10 06:07:37 Alex rial [place] Diastolic (mm Hg) 2023-04-10 06:07:37 Mem orial [place] Heart Rate 2023-04-10 06:07:37 [facility] [place] Temperature Oral (F) 2023-04-10 06:07:34 97.7 F [facility] [place] Heart Rate 2023-04-10 00:40:24 [facility] Respitory Rate 2023-04-10 00:40:24 Memori al [place] Systolic (mm Hg) 2023-04-10 00:40:08 Alex rial [place] Diastolic (mm Hg) 2023-04-10 00:40:08 Mem orial Alec Temperature Oral (F) 2023-04-10 00:38:36 98.4 F [facility] [place] Systolic (mm Hg) 2023-04-09 18:02:31 Alex rial Alec Diastolic (mm Hg) 2023-04-09 18:02:31 Mem orial Alec Temperature Oral (F) 2023-04-09 18:02:29 98.2 F [facility] Respitory Rate 2023-04-08 17:50:18 Memori al Alec Respitory Rate 2023-04-08 13:12:04 Memori al [place] Temperature Oral (F) 2023-04-06 01:32:24 97.7 F [facility] Heart Rate 2023-04-03 01:13:01 [facility] [place] Respitory Rate 2023-04-03 01:13:01 Memori al Alec Systolic (mm Hg) 2023-04-03 01:12:50 Alex rial [place] Diastolic (mm Hg) 2023-04-03 01:12:50 Mem orial Alec Heart Rate 2023-04-03 01:12:50 [facility] Temperature Oral (F) 2023-04-03 01:12:17 98 F [facility] [place] Heart Rate 2023-04-02 17:11:14 [facility] [place] Respitory Rate 2023-04-02 17:11:14 Memori al [place] Temperature Oral (F) 2023-04-02 17:11:05 98.2 F [facility] Systolic (mm Hg) 2023-04-02 17:11:01 Alex rial [place] Diastolic (mm Hg) 2023-04-02 17:11:01 Mem orial [place] Respitory Rate 2023-04-02 12:23:27 Memori al [place] Systolic (mm Hg) 2023-04-02 12:23:18 Alex rial [place] Diastolic (mm Hg) 2023-04-02 12:23:18 Mem orial Alec Temperature Oral (F) 2023-04-02 12:22:21 98.2 F [facility] [place] Height 2023-03-19 18:10:00 152.4 cm [facility] [place] Weight 2023-03-19 18:10:00 [facility] BMI Calculated 2023-03-19 18:10:00 Memori al Alec Height 2023-03-19 13:28:00 160.02 cm [facility] BMI Calculated 2023-03-19 13:28:00 Brittney Lehman Weight 2023-03-19 13:28[facility] 2023-02-22 14:35:00 145 mm[Hg] [facility] pressure Diastolic blood 2023-02-22 14:35:00 76 mm[Hg] [facility] pressure Heart rate 2023-02-22 14:35:00 80 /min [facility] Body temperature 2023-02-22 14:35:00 36.78 [facility] Del Carmen [facility] Respiratory rate 2023-02-22 14:35:00 18 /min [facility] Oxygen saturation in 2023-02-22 14:35:00 98 /min [facility] Arterial blood by Pulse oximetry Body height 2023-02-21 06:05:00 157.5 cm [facility] Body weight 2023-02-21 06:05:00 53.071 kg [facility] BMI 2023-02-21 06:05:00 21.40 kg/m2 [facility] Procedures Procedure Date / Time Performing Clinician Source Performed URINE CULTURE 2023-04-29 18:03:00 [facility] URINE DRUGS OF ABUSE 2023-04-29 16:46:00 [facility] SCREEN URINALYSIS SCREEN AND 2023-04-29 16:46:00 Carias, [facility] MICROSCOPY, WITH REFLEX TO CULTURE ECG ED PRELIMINARY 2023-04-29 14:59:55 CariasBrice sykes [facility] INTERPRETATION ESTIMATED GFR 2023-04-29 12:14:00 [facility] COVID-19 QUALITATIVE 2023-04-29 12:14:00 [facility] RT-PCR CBC WITH PLATELET AND 2023-04-29 12:14:00 Carias, [facility] DIFFERENTIAL COMPREHENSIVE METABOLIC 2023-04-29 12:14:00 Brice Carias [facility] PANEL THYROID STIMULATING 2023-04-29 12:14:00 [facility] H[facility] T4, FREE 2023-04-29 12:14:00 Aretha [facility] ALCOHOL LEVEL, BLOOD 2023-04-29 12:14:00 [facility] ACETAMINOPHEN LEVEL 2023-04-29 12:14:00 [facility] SALICYLATE LEVEL 2023-04-29 12:14:00 Aretha [facility] ECG 12-LEAD 2023-04-29 11:49:49 Aretha [facility] URINE DRUG SCREEN 2023-02-22 02:10:00 Ghislaine Bonillahin [facility] URINALYSIS W/REFLEX TO 2023-02-22 02:10:00 [facility] CULTURE URINALYSIS 2023-02-22 02:10:00 Noble Bonilla Tristan [facility] URINE CULTURE COLLECTION 2023-02-22 02:10:00 Ghislaine Bonillahin [facility] KIT URINE DRUG SCREEN 2023-02-22 02:10:00 [employer] [facility] URINALYSIS W/REFLEX TO 2023-02-22 02:10:00 [employer] [facility] [employer] URINE CULTURE URINALYSIS 2023-02-22 02:10:00 Ghislaine Bonillahin [facility] URINE CULTURE COLLECTION 2023-02-22 02:10:00 [employer] [facility] KIT CONSULT CLINICAL CASE 2023-02-21 14:25:23 Kun Giron [facility] MANAGEMENT (RN/SW) Tiffany Vilchis CONSULT CLINICAL CASE 2023-02-21 14:25:23 Kun Giron [facility] MANAGEMENT (RN/SW) Tiffany Vilchis CT HEAD W/O CONTRAST 2023-02-21 10:01:32 Noble Bonilla [facility] CT HEAD W/O CONTRAST 2023-02-21 10:01:32 Noble Bonilla [facility] CBC/DIFF 2023-02-21 08:21:00 Noble Bonilla [facility] BASIC METABOLIC PANEL 2023-02-21 08:21:00 [facility] CBC 2023-02-21 08:21:00 [facility] BASIC METABOLIC PANEL 2023-02-21 08:21:00 [facility] CBC/DIFF 2023-02-21 08:21:00 Noble Bonilla [facility] CBC 2023-02-21 08:21:00 Noble Bonilla [facility] Plan of Care Planned Activity Planned [...] [facility] 00:[facility]:00 2) [code = SHINGLES [facility] VACCINES (1 of 2)] Future Scheduled 1999 Screening for malignant [facility] Test 00:00:00 neoplasm of colon (procedure) [code = 091492489] Future Scheduled 1999 SHINGLES VACCINES (1 of [...] 2)] Future Scheduled 1989 Breast Cancer Scrn [facility] Test 00:00:00 (Yearly) [code = Breast [...] [facility] 00:[facility]:00 [code = COVID-[address] VACCINE (#1)] Future Scheduled 1949 COVID-19 Vaccine (#1) [facility] 00:00:00 [code = COVID-19 Vaccine (#1)] Future Scheduled 1949 COVID-19 VACCINE (#1[facility]00 [code = COVID-[address] VACCINE (#1)] Future Scheduled 1949 COVID-19 VACCINE (#1) [facility] 00:00:00 [code = COVID-[address] VACCINE (#1)] Future Scheduled 1949 COVID-19 VACCINE (#1) [facility] 00:00:00 [code = COVID-[address] VACCINE (#1)] Future Scheduled 1949 COVID-19 VACCINE (#1) [facility] 00:00:00 [code = COVID-[address] VACCINE (#1)] Future Scheduled 1949 Screening for malignant [facility] 00:00:00 neoplasm of breast Medical C enter (procedure) [code = 869807784] Future Scheduled 1949 CT Colonography (combo) [facility] 00:00:00 [code = CT Colonography [facility] (combo)] Future Scheduled 1949 Screening for malignant [facility] 00:00:00 neoplasm of colon Medical Ce nter (procedure) [code = 656685699] Future Scheduled 1949 Screening for malignant [facility] Test 00:00:00 neoplasm of colon Medical Ce [facility]ter (procedure) [code = 151418995] Future Scheduled 1949 DXA SCAN [code = DXA [facility] 00:00:00 SCAN] [facility] Future Scheduled 1949 Screening for malignant [facility] Test 00:00:00 neoplasm of colon Medical Ce [facility]ter (procedure) [code = 017413794] Future Scheduled 1949 Screening for malignant [facility] Test 00:00:00 neoplasm of colon Medical Ce [facility]ter (procedure) [code = 954706743] Future Scheduled 1949 Sigmoidoscopy [code = [facility] Screening for malignant [facility] 00:00:00 neoplasm of breast Medical C enter (procedure) [code = 446649150] Future Scheduled 1949 CT Colonography (combo) [facility] 00:00:00 [code = CT Colonography [facility] (combo)] Future Scheduled 1949 Screening for malignant [facility] 00:00:00 neoplasm of colon Medical Ce [facility]ter (procedure) [code = 618159776] Future Scheduled 1949 Screening for malignant [facility] Test 00:00:00 neoplasm of colon Medical Ce nter (procedure) [code = 516989166] Future Scheduled 1949 DXA SCAN [code = DXA [facility] 00:00:00 SCAN] [facility] Future Scheduled 1949 Screening for malignant [facility] Test 00:00:00 neoplasm of colon Medical Ce [facility]ter (procedure) [code = 458069483] Future Scheduled 1949 Screening for malignant [facility] 00:00:00 neoplasm of colon Medical Ce nter (procedure) [code = 613566166] Future Scheduled 1949 Sigmoidoscopy [code = [facility] Screening for malignant [facility] 00:00:00 neoplasm of breast Medical C enter (procedure) [code = 421257758] Future Scheduled 1949 CT Colonography (combo) [facility] Test 00:00:00 [code = CT Colonography [facility] (combo)] Future Scheduled 1949 Screening for malignant [facility] Test 00:00:00 neoplasm of colon Medical Ce nter (procedure) [code = 373295677] Future Scheduled 1949 Screening for malignant [facility] Test 00:00:00 neoplasm of colon Medical Ce nter (procedure) [code = 479803745] Future Scheduled 1949 DXA SCAN [code = DXA [facility] Test 00:00:00 SCAN] [facility] Future Scheduled 1949 Screening for malignant [facility] Test 00:00:00 neoplasm of colon Medical Ce nter (procedure) [code = 601261784] Future Scheduled 1949 Screening for malignant [facility] Test 00:00:00 neoplasm of colon Medical Ce nter (procedure) [code = 741970818] Future Scheduled 1949 Sigmoidoscopy [code = [facility] 00:[facility] Sigmoidoscopy] [facility] Future Scheduled 1949 Screening for malignant [facility] Test 00:00:00 neoplasm of breast Medical C enter (procedure) [code = 203276746] Future Scheduled 1949 CT Colonography (combo) [facility] Test 00:00:00 [code = CT Colonography [facility] (combo)] Future Scheduled 1949 Screening for malignant [facility] 00:00:00 neoplasm of colon Medical Ce nter (procedure) [code = [id number]] Future Scheduled 1949 Screening for malignant [facility] 00:00:00 neoplasm of colon [facility] (procedure) [code = [id number]] Future Scheduled 1949 DXA SCAN [code = DXA [facility] Test 00:00:00 SCAN] [facility] Future Scheduled 1949 Screening for malignant [facility] 00:00:00 neoplasm of colon [facility] (procedure) [code = [id number]] Future Scheduled 1949 Screening for malignant [facility] 00:00:00 neoplasm of colon [facility] (procedure) [code = [id number]] Future Scheduled 1949 Sigmoidoscopy [code = [facility] Screening for malignant [facility] 00:00:00 neoplasm of breast Medical C enter (procedure) [code = [id number]] Future Scheduled 1950 CT Colonography (combo) [facility] 00:00:00 [code = CT Colonography [facility] (combo)] Future Scheduled 1949 Screening for malignant [facility] 00:00:00 neoplasm of colon Medical Ce nter (procedure) [code = 534362727] Future Scheduled 1949 Screening for malignant [facility] 00:00:00 neoplasm of colon Medical Ce nter (procedure) [code = 838541158] Future Scheduled 1949 DXA SCAN [code = DXA [facility] Test 00:00:00 SCAN] [facility] Future Scheduled 1949 Screening for malignant [facility] 00:00:00 neoplasm of colon Medical Ce nter (procedure) [code = 475964209] Future Scheduled 1949 Screening for malignant [facility] 00:00:00 neoplasm of colon Medical Ce nter (procedure) [code = 077014065] Future Scheduled 1949 Sigmoidoscopy [code = [facility]] Medical Cent[facility] r Encounters Start End Encounter Admission Attending Care Care Encounter Source Date/Time Date/Time Type Type Clinicians Facility Department ID 2023-04-04 Outpatient [facility] [id number] [place] 10:20:03 [id number] [facility] 2023-03-21 Outpatient [facility] [id number] [place] 08:01:14 [id number] [facility] 2021-06-20 Outpatient MARGARET RODRIGUEZ Surgery [id number] [facility] 06:18:23 SHAHNAZ 2023-05-26 2023-05-26 Outpatient MORGAN MORA [id number] [place] 10:21:20 10:21:20 [id number] Hermilo 2023-04-29 2023-05-01 Emergency Aretha, [id number] [facility] 06:30:00 22:44:00 Brice Ralph [id number] [id number] [id number] l .8 2023-04-29 2023-05-01 [place] [id number] [place] 00:00:00 00:00:[address] 2023-03-19 2023-04-12 Inpatient [facility] [id number] [place] 13:26:00 01:40:[address] 2023-03-19 2023-04-12 Inpatient [facility] [id number] [place] 13:26:00 01:40:[address] 2023-03-19 2023-04-11 Inpatient E [facility] [id number] [place] 10:58:00 20:40:[address] [place] 2023-03-19 2023-04-11 Inpatient E AKRAM, [facility] 7500 [place] 10:58:00 20:40:00 [facility] Alec Potter Memoria l 2023-03-19 2023-04-11 Outpatient Akram, 9 MH9 [id number] 08:26:00 20:40[facility] 2023-04-05 Outpatient [facility] [id number] [place] 10:00:00 10:00:00 Demian [place] 2023-04-03 2023-04-03 Outpatient [facility] [id number] [place] 00:00:00 00:00:00 [facility] 2023-03-19 2023-03-19 Outpatient Akram, MH9 MH9 [id number] 08:26:00 08:26:00 Jamshaid 00 2023-03-19 2023-03-19 Outpatient Akram, MH9 MH9 [id number] 08:26:00 08:26:00 Jamshaid 2023-03-19 2023-03-19 Outpatient Akram, MH9 MH9 [id number] 08:26:00 08:26:00 Jamshaid 00 2023-02-21 2023-02-22 Emergency Noble Bonilla JAMAAL BURCIAGA 1.2 .[id number] [place] 06:07:00 15:25:00 Riddhi Ji [facility] [id number] On license of [facility] .[id number] Lottie Blum [id number] LionedwinaTiffany Tierney A 2023-02-21 2023-02-21 Emergency [facility] [id number] [place] 09:18:00 10:01:38 Health 2023-02-21 2023-02-21 Emergency [facility] [id number] [place] 00:00:00 00:00:00 Health 2023-02-21 2023-02-21 Emergency [facility] [id number] [place] 00:00:00 00:00:00 , NOBLE Arciniega h 2021-04-06 2021-04-06 Outpatient [facility] [id number] [place] 00:00:00 00:00:00 2021-04-06 2021-04-06 Outpatient [facility] [id number] [facility] 00:00:00 00:00:00 Results Test Description Test Time Test Comments Results Result Comments Source Urine culture 2023-05-01 00:57:00 Test Item Value Reference Range Interpretation Comme nts Urine culture isolate Mixed kelsey 10-4 Sp ecimen InformationSpecimen (test code = 84013-0) col/cc Source : UrineSpecimen Site: Clean catch [address]2023-08-20 11:57:16 Test Item Value Reference Range Interpretation Comments Ventricular rate (test 81 code = 253) Atrial rate (test code = 81 255) NM interval (test code = 154 266) QRSD interval (test code 74 = 260) QT interval (test code = 412 264) QTC interval (test code 478 = 265) P axis 1 (test code = 75 267) QRS axis 1 (test code = 23 268) T wave axis (test code = 73 270) EKG impression (test Normal sinus code = 273) rhythm-Normal ECG-No previous ECGs available-Electronica lly Signed By Gera Webber MD ([id number]) on 04/30/2023 6:57:11 AM Art HpbgudrwCIPD-LnV-6 (COVID-19) RNA [Presence] in Respiratory specimen by GREG with probe cspiqwjvj6949-74-92 08:41:44 Test Item Value Reference Range Interpretation Comments SARS-CoV-2 (COVID-19) RNA Not detected [Presence] in Respiratory specimen by GREG with probe detection (test code = 50818-6) Whether patient is employed in a Unknown healthcare setting (test code = 73833-1) Whether the patient has symptoms Unknown related to condition of interest (test code = 24549-3) Whether the patient was Unknown hospitalized for condition of interest (test code = 95071-5) Whether the patient was admitted Unknown to intensive care unit (ICU) for condition of interest (test code = 09372-5) Whether patient resides in a Unknown congregate care setting (test code = 83694-0) status (test code = Unknown 03234-7) Date and time of symptom onset Unknown (test code = 92508-7) FERNANDO WARREN BOKGEIIUVLOLJG4451-20-14 16:51:00 Test Item Value Reference Range Interpretation Comments Coronavirus (COVID-19) Detected 20, GREG (test code = 21*ABN*(04/06/23 11:51 Coronavirus (COVID-19) AM) GREG) [facility] 16:51:00 Test Item Value Reference Range Interpretation Comments Coronavirus (COVID-19) Detected 17, GREG (test code = 18*ABN*(04/06/23 11:51 Coronavirus (COVID-19) AM) GREG) [facility]ztbzbqUFHXFAASJA0607-11-06 16:51:00 Test Item Value Reference Range Interpretation Comments Coronavirus (COVID-19) Detected 20, GREG (test code = 21*ABN*(04/06/23 11:51 Coronavirus (COVID-19) AM) GREG) [facility]tvrxygVMXKIDPNRD4031-95-19 16:51:00 Test Item Value Reference Range Interpretation Comments Coronavirus (COVID-19) Detected 17, GREG (test code = 18*ABN*(04/06/23 11:51 Coronavirus (COVID-19) AM) GREG) [facility]qgtnnnVYTNUHUGUT7798-62-31 16:51:00 Test Item Value Reference Range Interpretation Comments Coronavirus (COVID-19) Detected 20, GREG (test code = 21*ABN*(04/06/23 11:51 Coronavirus (COVID-19) AM) GREG) [place] 260243-07-27 16:51:00 Test Item Value Reference Range Interpretation Comments Coronavirus (COVID-19) Detected 17, GREG (test code = 18*ABN*(04/06/23 11:51 Coronavirus (COVID-19) AM) GREG) [place] [address]-07-25 13:07:00 Test Item Value Reference Range Interpretation Comments Coronavirus (COVID-19) Detected 22, GREG (test code = 23*ABN*(04/04/23 8:07 Coronavirus (COVID-19) AM) GREG) [place] [address]-07-25 13:07:00 Test Item Value Reference Range Interpretation Comments Coronavirus (COVID-19) Detected 22, GREG (test code = 23*ABN*(04/04/23 8:07 Coronavirus (COVID-19) AM) GREG) [facility] 13:07:00 Test Item Value Reference Range Interpretation Comments Coronavirus (COVID-19) Detected 22, GREG (test code = 23*ABN*(04/04/23 8:07 Coronavirus (COVID-19) AM) GREG) [facility]GsglrmlVIMHVOEVSZ9199-23-46 18:52:00 Test Item Value Reference Range Interpretation Comments Coronavirus (COVID-19) Detected 24, GREG (test code = 25*ABN*(03/28/23 1:52 Coronavirus (COVID-19) PM) GREG) [facility]xeamdbLGHKWQIVIO1046-62-46 18:52:00 Test Item Value Reference Range Interpretation Comments Coronavirus (COVID-19) Detected 24, GREG (test code = 25*ABN*(03/28/23 1:52 Coronavirus (COVID-19) PM) GREG) [place] 260243-07-18 18:52:00 Test Item Value Reference Range Interpretation Comments Coronavirus (COVID-19) Detected 24, GREG (test code = 25*ABN*(03/28/23 1:52 Coronavirus (COVID-19) PM) GREG) [place] 933583-07-17 08:33:00 Test Item Value Reference Range Interpretation Comments Potassium Lvl (test code = Potassium 4.3 3.5-5.1 Lvl) [facility]ULXL3430[facility]17-70 08:33:00 Test Item Value Reference Range Interpretation Comments Chloride Lvl (test code = Chloride Lvl) 100 95-109 [facility]PkhwdgqYPIYQZLOR9311-10-20 08:33:00 Test Item Value Reference Range Interpretation Comments CO2 (test code = CO2) 30 24-32 [place] 933583-07-17 08:33:00 Test Item Value Reference Range Interpretation Comments Calcium Lvl (test code = Calcium Lvl) 9.2 8.5-10.5 [facility] CenterFjvpinuCDXGVTPHS5582-77-75 08:33:00 Test Item Value Reference Range Interpretation Comments AGAP (test code = AGAP) 9.3 10.0-20.0 [facility] CenterMfkpbnxOIVHYWRAZ4663-53-90 08:33:00 Test Item Value Reference Range Interpretation Comments eGFR (test code = eGFR) 93 [facility]bl[facility]qepQOGWNKKSSJ7544-99-06 08:33:00 Test Item Value Reference Range Interpretation Comments Segs (test code = Segs) 78.2 45.0-75.0 [facility] HospitalDtzngdpCNYTKODNIH8974-82-97 08:33:00 Test Item Value Reference Range Interpretation Comments Lymphocytes (test code = Lymphocytes) 10.9 20.0-40.0 [place] 713283-07-17 08:33:00 Test Item Value Reference Range Interpretation Comments Monocytes (test code = Monocytes) 10.1 2.0-12.0 [place] 713283-07-17 08:33:00 Test Item Value Reference Range Interpretation Comments Eosinophils (test code = Eosinophils) 0.5 <=4.0 [place] [address]-07-17 08:33:00 Test Item Value Reference Range Interpretation Comments Basophils (test code = Basophils) 0.3 <=1.0 [place] [address]-07-17 08:33:00 Test Item Value Reference Range Interpretation Comments Neutrophils # (test code = Neutrophils 4.7 1.5-8.1 #) [facility] HospitalUnwvjgwGIAPGXOOEL8632-47-64 08:33:00 Test Item Value Reference Range Interpretation Comments Lymphocytes # (test code = Lymphocytes 0.7 1.0-5.5 #) [facility] HospitalSpdivncNGNTNTGWCG5766-95-80 08:33:00 Test Item Value Reference Range Interpretation Comments Monocytes # (test code = Monocytes #) 0.6 <=0.8 [place] 713283-07-17 08:33:00 Test Item Value Reference Range Interpretation Comments WBC (test code = WBC) 6.0 3.7-10.4 [facility] HospitalIfbkojfWVYWFHNNQT6429-96-91 08:33:00 Test Item Value Reference Range Interpretation Comments RBC (test code = RBC) 2.91 4.20-5.40 [facility] HospitalLfgpsjiMOJVRFMXSD5074-91-57 08:33:00 Test Item Value Reference Range Interpretation Comments Hgb (test code = Hgb) 8.3 12.0-16.0 [place] 713283-07-17 08:33:00 Test Item Value Reference Range Interpretation Comments Hct (test code = Hct) 25.8 36.0-48.0 [facility] HospitalKnqfnfcAIYDZGUQJP3699-18-31 08:33:00 Test Item Value Reference Range Interpretation Comments MCV (test code = MCV) 88.5 80.0-98.0 [facility] HospitalLcawxfcZPYZYWUXEX1617-65-60 08:33:00 Test Item Value Reference Range Interpretation Comments MCH (test code = MCH) 28.6 pg 27.0-31.0 [facility] HospitalQyhiahbIUBZGSGKUN5677-44-44 08:33:00 Test Item Value Reference Range Interpretation Comments MCHC (test code = MCHC) 32.3 32.0-36.0 [facility] HospitalLgueglpYNFHOQPXIY4360-18-75 08:33:00 Test Item Value Reference Range Interpretation Comments RDW (test code = RDW) 14.8 11.5-14.5 [place] 713283-07-17 08:33:00 Test Item Value Reference Range Interpretation Comments Platelet (test code = Platelet) 252 133-450 [facility] HospitalSutpnrzIAGDETXKZL0972-54-89 08:33:00 Test Item Value Reference Range Interpretation Comments MPV (test code = MPV) 7.7 7.4-10.4 [place] 713283-07-17 08:33:00 Test Item Value Reference Range Interpretation Comments Segs (test code = Segs) 78.2 45.0-75.0 [place] [address]-07-17 08:33:00 Test Item Value Reference Range Interpretation Comments Lymphocytes (test code = Lymphocytes) 10.9 20.0-40.0 [place] [address]-07-17 08:33:00 Test Item Value Reference Range Interpretation Comments Monocytes (test code = Monocytes) 10.1 2.0-12.0 [place] [address]-07-17 08:33:00 Test Item Value Reference Range Interpretation Comments Eosinophils (test code = Eosinophils) 0.5 <=4.0 [place] [address]-07-17 08:33:00 Test Item Value Reference Range Interpretation Comments Basophils (test code = Basophils) 0.3 <=1.0 [place] [address]-07-17 08:33:00 Test Item Value Reference Range Interpretation Comments Neutrophils # (test code = Neutrophils 4.7 1.5-8.1 #) [place] [address]-07-17 08:33:00 Test Item Value Reference Range Interpretation Comments Lymphocytes # (test code = Lymphocytes 0.7 1.0-5.5 #) [place] [address]-07-17 08:33:00 Test Item Value Reference Range Interpretation Comments Monocytes # (test code = Monocytes #) 0.6 <=0.8 [place] [address]-07-17 08:33:00 Test Item Value Reference Range Interpretation Comments WBC (test code = WBC) 6.0 3.7-10.4 [place] [address]-07-17 08:33:00 Test Item Value Reference Range Interpretation Comments RBC (test code = RBC) 2.91 4.20-5.40 [place] [address]-07-17 08:33:00 Test Item Value Reference Range Interpretation Comments Hgb (test code = Hgb) 8.3 12.0-16.0 [place] [address]-07-17 08:33:00 Test Item Value Reference Range Interpretation Comments Hct (test code = Hct) 25.8 36.0-48.0 [place] [address]-07-17 08:33:00 Test Item Value Reference Range Interpretation Comments MCV (test code = MCV) 88.5 80.0-98.0 [place] [address]-07-17 08:33:00 Test Item Value Reference Range Interpretation Comments MCH (test code = MCH) 28.6 pg 27.0-31.0 [place] [address]-07-17 08:33:00 Test Item Value Reference Range Interpretation Comments MCHC (test code = MCHC) 32.3 32.0-36.0 [place] [address]-07-17 08:33:00 Test Item Value Reference Range Interpretation Comments RDW (test code = RDW) 14.8 11.5-14.5 [place] [address]-07-17 08:33:00 Test Item Value Reference Range Interpretation Comments Platelet (test code = Platelet) 252 133-450 [place] [address]-07-17 08:33:00 Test Item Value Reference Range Interpretation Comments MPV (test code = MPV) 7.7 7.4-10.4 [place] 255623-07-17 08:33:00 Test Item Value Reference Range Interpretation Comments Glucose Lvl (test code = Glucose Lvl) 99 70-99 [place] 255623-07-17 08:33:00 Test Item Value Reference Range Interpretation Comments BUN (test code = BUN) 20 7-22 [place] 255623-07-17 08:33:00 Test Item Value Reference Range Interpretation Comments Creatinine Lvl (test code = Creatinine 0.62 0.50-1.40 Lvl) [place] 255623-07-17 08:33:00 Test Item Value Reference Range Interpretation Comments Sodium Lvl (test code = Sodium Lvl) 135 135-145 [place] 255623-07-17 08:33:00 Test Item Value Reference Range Interpretation Comments Potassium Lvl (test code = Potassium 4.3 3.5-5.1 Lvl) [place] 255623-07-17 08:33:00 Test Item Value Reference Range Interpretation Comments Chloride Lvl (test code = Chloride Lvl) 100 95-109 [place] 255623-07-17 08:33:00 Test Item Value Reference Range Interpretation Comments CO2 (test code = CO2) 30 24-32 [place] 255623-07-17 08:33:00 Test Item Value Reference Range Interpretation Comments Calcium Lvl (test code = Calcium Lvl) 9.2 8.5-10.5 [place] 255623-07-17 08:33:00 Test Item Value Reference Range Interpretation Comments AGAP (test code = AGAP) 9.3 10.0-20.0 [facility] 08:33:00 Test Item Value Reference Range Interpretation Comments eGFR (test code = eGFR) 93 [place] [address]-07-17 08:33:00 Test Item Value Reference Range Interpretation Comments Glucose Lvl (test code = Glucose Lvl) 99 70-99 [place] [address]-07-17 08:33:00 Test Item Value Reference Range Interpretation Comments BUN (test code = BUN) 20 7-22 [place] [address]-07-17 08:33:00 Test Item Value Reference Range Interpretation Comments Creatinine Lvl (test code = Creatinine 0.62 0.50-1.40 Lvl) [place] [address]-07-17 08:33:00 Test Item Value Reference Range Interpretation Comments Sodium Lvl (test code = Sodium Lvl) 135 135-145 [place] [address]-07-17 08:33:00 Test Item Value Reference Range Interpretation Comments Potassium Lvl (test code = Potassium 4.3 3.5-5.1 Lvl) [facility]eqgueiIOULSWPQN6568-61-49 08:33:00 Test Item Value Reference Range Interpretation Comments Chloride Lvl (test code = Chloride Lvl) 100 95-109 [place] 933583-07-17 08:33:00 Test Item Value Reference Range Interpretation Comments CO2 (test code = CO2) 30 24-32 [place] [address]-07-17 08:33:00 Test Item Value Reference Range Interpretation Comments Calcium Lvl (test code = Calcium Lvl) 9.2 8.5-10.5 [place] [address]-07-17 08:33:00 Test Item Value Reference Range Interpretation Comments AGAP (test code = AGAP) 9.3 10.0-20.0 [place] [address]-07-17 08:33:00 Test Item Value Reference Range Interpretation Comments eGFR (test code = eGFR) 93 [place] [address]-07-17 08:33:00 Test Item Value Reference Range Interpretation Comments Segs (test code = Segs) 78.2 45.0-75.0 [place] [address]-07-17 08:33:00 Test Item Value Reference Range Interpretation Comments Lymphocytes (test code = Lymphocytes) 10.9 20.0-40.0 [place] [address]-07-17 08:33:00 Test Item Value Reference Range Interpretation Comments Monocytes (test code = Monocytes) 10.1 2.0-12.0 [place] [address]-07-17 08:33:00 Test Item Value Reference Range Interpretation Comments Eosinophils (test code = 0.5 See_Comment [A utomated message] The Eosinophils) system which ge nerated this result tra nsmitted reference range : <=4.0. The reference r vasile was not used to int erpret this result as normal/abnormal . [address]07-17 08:33:00 Test Item Value Reference Range Interpretation Comments Basophils (test code = 0.3 See_Comment [Aut omated message] The Basophils) system which ge nerated this result tra nsmitted reference range : <=1.0. The reference r vasile was not used to int erpret this result as normal/abnormal . [place] [address]-07-17 08:33:00 Test Item Value Reference Range Interpretation Comments Neutrophils # (test code = Neutrophils 4.7 1.5-8.1 #) [place] [address]-07-17 08:33:00 Test Item Value Reference Range Interpretation Comments Lymphocytes # (test code = Lymphocytes 0.7 1.0-5.5 #) [place] [address]-07-17 08:33:00 Test Item Value Reference Range Interpretation Comments Monocytes # (test code 0.6 See_Comment [Aut omated message] The = Monocytes #) system which generated this result tra nsmitted reference range : <=0.8. The reference r vasile was not used to int erpret this result as normal/abnormal . [place] [address]-07-17 08:33:00 Test Item Value Reference Range Interpretation Comments WBC (test code = WBC) 6.0 3.7-10.4 [place] [address]-07-17 08:33:00 Test Item Value Reference Range Interpretation Comments RBC (test code = RBC) 2.91 4.20-5.40 [place] [address]-07-17 08:33:00 Test Item Value Reference Range Interpretation Comments Hgb (test code = Hgb) 8.3 12.0-16.0 [place] [address]-07-17 08:33:00 Test Item Value Reference Range Interpretation Comments Hct (test code = Hct) 25.8 36.0-48.0 [place] [address]-07-17 08:33:00 Test Item Value Reference Range Interpretation Comments MCV (test code = MCV) 88.5 80.0-98.0 [place] [address]-07-17 08:33:00 Test Item Value Reference Range Interpretation Comments MCH (test code = MCH) 28.6 pg 27.0-31.0 [place] [address]-07-17 08:33:00 Test Item Value Reference Range Interpretation Comments MCHC (test code = MCHC) 32.3 32.0-36.0 [place] [address]-07-17 08:33:00 Test Item Value Reference Range Interpretation Comments RDW (test code = RDW) 14.8 11.5-14.5 [place] [address]-07-17 08:33:00 Test Item Value Reference Range Interpretation Comments Platelet (test code = Platelet) 252 133-450 [place] [address]-07-17 08:33:00 Test Item Value Reference Range Interpretation Comments MPV (test code = MPV) 7.7 7.4-10.4 [place] [address]-07-17 08:33:00 Test Item Value Reference Range Interpretation Comments Segs (test code = Segs) 78.2 45.0-75.0 [place] [address]-07-17 08:33:00 Test Item Value Reference Range Interpretation Comments Lymphocytes (test code = Lymphocytes) 10.9 20.0-40.0 [place] [address]-07-17 08:33:00 Test Item Value Reference Range Interpretation Comments Monocytes (test code = Monocytes) 10.1 2.0-12.0 [place] [address]-07-17 08:33:00 Test Item Value Reference Range Interpretation Comments Eosinophils (test code = 0.5 See_Comment [A utomated message] The Eosinophils) system which ge nerated this result tra nsmitted reference range : <=4.0. The reference r vasile was not used to int erpret this result as normal/abnormal . [facility]xrpdvoWTLMBXOZUP2897-19-76 08:33:00 Test Item Value Reference Range Interpretation Comments Basophils (test code = 0.3 See_Comment [Aut omated message] The Basophils) system which ge nerated this result tra nsmitted reference range : <=1.0. The reference r vasile was not used to int erpret this result as normal/abnormal . [facility] HospitalKzlujxaQHLGAKVUFI2698-95-65 08:33:00 Test Item Value Reference Range Interpretation Comments Neutrophils # (test code = Neutrophils 4.7 1.5-8.1 #) [facility] HospitalTozwzwyNJKJULSWRG4541-86-76 08:33:00 Test Item Value Reference Range Interpretation Comments Lymphocytes # (test code = Lymphocytes 0.7 1.0-5.5 #) [facility] HospitalFhlfjqlRZUVCLTKCV2010-02-42 08:33:00 Test Item Value Reference Range Interpretation Comments Monocytes # (test code 0.6 See_Comment [Aut omated message] The = Monocytes #) system which generated this result tra nsmitted reference range : <=0.8. The reference r vasile was not used to int erpret this result as normal/abnormal . [facility] HospitalMapaqupFKVFSINSXE4355-57-55 08:33:00 Test Item Value Reference Range Interpretation Comments WBC (test code = WBC) 6.0 3.7-10.4 [facility] HospitalYwjuvmqBFRJZRVSLS2987-15-54 08:33:00 Test Item Value Reference Range Interpretation Comments RBC (test code = RBC) 2.91 4.20-5.40 [facility] HospitalYcmpcvsIWPAFVHMPC7628-37-35 08:33:00 Test Item Value Reference Range Interpretation Comments Hgb (test code = Hgb) 8.3 12.0-16.0 [place] [address]-07-17 08:33:00 Test Item Value Reference Range Interpretation Comments Hct (test code = Hct) 25.8 36.0-48.0 [place] [address]-07-17 08:33:00 Test Item Value Reference Range Interpretation Comments MCV (test code = MCV) 88.5 80.0-98.0 [place] 713283-07-17 08:33:00 Test Item Value Reference Range Interpretation Comments MCH (test code = MCH) 28.6 pg 27.0-31.0 [place] [address]-07-17 08:33:00 Test Item Value Reference Range Interpretation Comments MCHC (test code = MCHC) 32.3 32.0-36.0 [place] [address]-07-17 08:33:00 Test Item Value Reference Range Interpretation Comments RDW (test code = RDW) 14.8 11.5-14.5 [place] [address]-07-17 08:33:00 Test Item Value Reference Range Interpretation Comments Platelet (test code = Platelet) 252 133-450 [place] [address]-07-17 08:33:00 Test Item Value Reference Range Interpretation Comments MPV (test code = MPV) 7.7 7.4-10.4 [place] [address]-07-17 08:33:00 Test Item Value Reference Range Interpretation Comments Glucose Lvl (test code = Glucose Lvl) 99 70-99 [place] 255623-07-17 08:33:00 Test Item Value Reference Range Interpretation Comments BUN (test code = BUN) 20 7-22 [place] [address]-07-17 08:33:00 Test Item Value Reference Range Interpretation Comments Creatinine Lvl (test code = Creatinine 0.62 0.50-1.40 Lvl) [place] [address]-07-17 08:33:00 Test Item Value Reference Range Interpretation Comments Sodium Lvl (test code = Sodium Lvl) 135 135-145 [place] [address]-07-17 08:33:00 Test Item Value Reference Range Interpretation Comments Potassium Lvl (test code = Potassium 4.3 3.5-5.1 Lvl) [place] [address]-07-17 08:33:00 Test Item Value Reference Range Interpretation Comments Chloride Lvl (test code = Chloride Lvl) 100 95-109 [place] [address]-07-17 08:33:00 Test Item Value Reference Range Interpretation Comments CO2 (test code = CO2) 30 24-32 [place] [address]-07-17 08:33:00 Test Item Value Reference Range Interpretation Comments Calcium Lvl (test code = Calcium Lvl) 9.2 8.5-10.5 [place] [address]-07-17 08:33:00 Test Item Value Reference Range Interpretation Comments AGAP (test code = AGAP) 9.3 10.0-20.0 [facility]2023-07-17 08:33:00 Test Item Value Reference Range Interpretation Comments eGFR (test code = eGFR) 93 [place] [address]-07-17 08:33:00 Test Item Value Reference Range Interpretation Comments Glucose Lvl (test code = Glucose Lvl) 99 70-99 [place] [address]-07-17 08:33:00 Test Item Value Reference Range Interpretation Comments BUN (test code = BUN) 20 7-22 [place] [address]-07-17 08:33:00 Test Item Value Reference Range Interpretation Comments Creatinine Lvl (test code = Creatinine 0.62 0.50-1.40 Lvl) [place] [address]-07-17 08:33:00 Test Item Value Reference Range Interpretation Comments Sodium Lvl (test code = Sodium Lvl) 135 135-145 [place] [address]-07-17 08:33:00 Test Item Value Reference Range Interpretation Comments Potassium Lvl (test code = Potassium 4.3 3.5-5.1 Lvl) [place] 933583-07-17 08:33:00 Test Item Value Reference Range Interpretation Comments Chloride Lvl (test code = Chloride Lvl) 100 95-109 [place] [address]-07-17 08:33:00 Test Item Value Reference Range Interpretation Comments CO2 (test code = CO2) 30 24-32 [place] [address]-07-17 08:33:00 Test Item Value Reference Range Interpretation Comments Calcium Lvl (test code = Calcium Lvl) 9.2 8.5-10.5 [place] [address]-07-17 08:33:00 Test Item Value Reference Range Interpretation Comments AGAP (test code = AGAP) 9.3 10.0-20.0 [place] [address]-07-17 08:33:00 Test Item Value Reference Range Interpretation Comments eGFR (test code = eGFR) 93 [place] 713283-07-17 08:33:00 Test Item Value Reference Range Interpretation Comments Segs (test code = Segs) 78.2 45.0-75.0 [place] [address]-07-17 08:33:00 Test Item Value Reference Range Interpretation Comments Lymphocytes (test code = Lymphocytes) 10.9 20.0-40.0 [place] [address]-07-17 08:33:00 Test Item Value Reference Range Interpretation Comments Monocytes (test code = Monocytes) 10.1 2.0-12.0 [place] [address]-07-17 08:33:00 Test Item Value Reference Range Interpretation Comments Eosinophils (test code = 0.5 See_Comment [A utomated message] The Eosinophils) system which ge nerated this result tra nsmitted reference range : <=4.0. The reference r vasile was not used to int erpret this result as normal/abnormal . [place] [address]-07-17 08:33:00 Test Item Value Reference Range Interpretation Comments Basophils (test code = 0.3 See_Comment [Aut omated message] The Basophils) system which ge nerated this result tra nsmitted reference range : <=1.0. The reference r vasile was not used to int erpret this result as normal/abnormal . [place] 713283-07-17 08:33:00 Test Item Value Reference Range Interpretation Comments Neutrophils # (test code = Neutrophils 4.7 1.5-8.1 #) [place] [address]-07-17 08:33:00 Test Item Value Reference Range Interpretation Comments Lymphocytes # (test code = Lymphocytes 0.7 1.0-5.5 #) [place] [address]-07-17 08:33:00 Test Item Value Reference Range Interpretation Comments Monocytes # (test code 0.6 See_Comment [Aut omated message] The = Monocytes #) system which generated this result tra nsmitted reference range : <=0.8. The reference r vasile was not used to int erpret this result as normal/abnormal . [place] [address]-07-17 08:33:00 Test Item Value Reference Range Interpretation Comments WBC (test code = WBC) 6.0 3.7-10.4 [place] [address]-07-17 08:33:00 Test Item Value Reference Range Interpretation Comments RBC (test code = RBC) 2.91 4.20-5.40 [place] [address]-07-17 08:33:00 Test Item Value Reference Range Interpretation Comments Hgb (test code = Hgb) 8.3 12.0-16.0 [place] [address]-07-17 08:33:00 Test Item Value Reference Range Interpretation Comments Hct (test code = Hct) 25.8 36.0-48.0 [place] [address]-07-17 08:33:00 Test Item Value Reference Range Interpretation Comments MCV (test code = MCV) 88.5 80.0-98.0 [place] [address]-07-17 08:33:00 Test Item Value Reference Range Interpretation Comments MCH (test code = MCH) 28.6 pg 27.0-31.0 [place] [address]-07-17 08:33:00 Test Item Value Reference Range Interpretation Comments MCHC (test code = MCHC) 32.3 32.0-36.0 [place] [address]-07-17 08:33:00 Test Item Value Reference Range Interpretation Comments RDW (test code = RDW) 14.8 11.5-14.5 [place] [address]-07-17 08:33:00 Test Item Value Reference Range Interpretation Comments Platelet (test code = Platelet) 252 133-450 [place] [address]-07-17 08:33:00 Test Item Value Reference Range Interpretation Comments MPV (test code = MPV) 7.7 7.4-10.4 [place] [address]-07-17 08:33:00 Test Item Value Reference Range Interpretation Comments Segs (test code = Segs) 78.2 45.0-75.0 [place] [address]-07-17 08:33:00 Test Item Value Reference Range Interpretation Comments Lymphocytes (test code = Lymphocytes) 10.9 20.0-40.0 [place] [address]-07-17 08:33:00 Test Item Value Reference Range Interpretation Comments Monocytes (test code = Monocytes) 10.1 2.0-12.0 [place] [address]-07-17 08:33:00 Test Item Value Reference Range Interpretation Comments Eosinophils (test code = 0.5 See_Comment [A utomated message] The Eosinophils) system which ge nerated this result tra nsmitted reference range : <=4.0. The reference r vasile was not used to int erpret this result as normal/abnormal . [place] [address]-07-17 08:33:00 Test Item Value Reference Range Interpretation Comments Basophils (test code = 0.3 See_Comment [Aut omated message] The Basophils) system which ge nerated this result tra nsmitted reference range : <=1.0. The reference r vasile was not used to int erpret this result as normal/abnormal . [place] [address]-07-17 08:33:00 Test Item Value Reference Range Interpretation Comments Neutrophils # (test code = Neutrophils 4.7 1.5-8.1 #) [place] 713283-07-17 08:33:00 Test Item Value Reference Range Interpretation Comments Lymphocytes # (test code = Lymphocytes 0.7 1.0-5.5 #) [place] 713283-07-17 08:33:00 Test Item Value Reference Range Interpretation Comments Monocytes # (test code 0.6 See_Comment [Aut omated message] The = Monocytes #) system which generated this result tra nsmitted reference range : <=0.8. The reference r vasile was not used to int erpret this result as normal/abnormal . [place] 713283-07-17 08:33:00 Test Item Value Reference Range Interpretation Comments WBC (test code = WBC) 6.0 3.7-10.4 [place] [address]-07-17 08:33:00 Test Item Value Reference Range Interpretation Comments RBC (test code = RBC) 2.91 4.20-5.40 [place] [address]-07-17 08:33:00 Test Item Value Reference Range Interpretation Comments Hgb (test code = Hgb) 8.3 12.0-16.0 [place] [address]-07-17 08:33:00 Test Item Value Reference Range Interpretation Comments Hct (test code = Hct) 25.8 36.0-48.0 [place] [address]-07-17 08:33:00 Test Item Value Reference Range Interpretation Comments MCV (test code = MCV) 88.5 80.0-98.0 [place] [address]-07-17 08:33:00 Test Item Value Reference Range Interpretation Comments MCH (test code = MCH) 28.6 pg 27.0-31.0 [place] [address]-07-17 08:33:00 Test Item Value Reference Range Interpretation Comments MCHC (test code = MCHC) 32.3 32.0-36.0 [place] [address]-07-17 08:33:00 Test Item Value Reference Range Interpretation Comments RDW (test code = RDW) 14.8 11.5-14.5 [place] [address]-07-17 08:33:00 Test Item Value Reference Range Interpretation Comments Platelet (test code = Platelet) 252 133-450 [place] [address]-07-17 08:33:00 Test Item Value Reference Range Interpretation Comments MPV (test code = MPV) 7.7 7.4-10.4 [place] 255623-07-17 08:33:00 Test Item Value Reference Range Interpretation Comments Glucose Lvl (test code = Glucose Lvl) 99 70-99 [place] 255623-07-17 08:33:00 Test Item Value Reference Range Interpretation Comments BUN (test code = BUN) 20 7-22 [place] 255623-07-17 08:33:00 Test Item Value Reference Range Interpretation Comments Creatinine Lvl (test code = Creatinine 0.62 0.50-1.40 Lvl) [place] 255623-07-17 08:33:00 Test Item Value Reference Range Interpretation Comments Sodium Lvl (test code = Sodium Lvl) 135 135-145 [place] 255623-07-17 08:33:00 Test Item Value Reference Range Interpretation Comments Potassium Lvl (test code = Potassium 4.3 3.5-5.1 Lvl) [place] 255623-07-17 08:33:00 Test Item Value Reference Range Interpretation Comments Chloride Lvl (test code = Chloride Lvl) 100 95-109 [place] [address]-07-17 08:33:00 Test Item Value Reference Range Interpretation Comments CO2 (test code = CO2) 30 24-32 [place] 255623-07-17 08:33:00 Test Item Value Reference Range Interpretation Comments Calcium Lvl (test code = Calcium Lvl) 9.2 8.5-10.5 [place] 255623-07-17 08:33:00 Test Item Value Reference Range Interpretation Comments AGAP (test code = AGAP) 9.3 10.0-20.0 [place] 255623-07-17 08:33:00 Test Item Value Reference Range Interpretation Comments eGFR (test code = eGFR) 93 [place] [address]-07-17 08:33:00 Test Item Value Reference Range Interpretation Comments Glucose Lvl (test code = Glucose Lvl) 99 70-99 [place] [address]-07-17 08:33:00 Test Item Value Reference Range Interpretation Comments BUN (test code = BUN) 20 7-22 [place] [address]-07-17 08:33:00 Test Item Value Reference Range Interpretation Comments Creatinine Lvl (test code = Creatinine 0.62 0.50-1.40 Lvl) [place] [address]-07-17 08:33:00 Test Item Value Reference Range Interpretation Comments Sodium Lvl (test code = Sodium Lvl) 135 135-145 [place] 255623-07-16 09:32:00 Test Item Value Reference Range Interpretation Comments Glucose Lvl (test code = Glucose Lvl) 97 70-99 [place] 255623-07-16 09:32:00 Test Item Value Reference Range Interpretation Comments BUN (test code = BUN) 21 04-01 [place] 255623-07-16 09:32:00 Test Item Value Reference Range Interpretation Comments Creatinine Lvl (test code = Creatinine 0.62 0.50-1.40 Lvl) [place] 255623-07-16 09:32:00 Test Item Value Reference Range Interpretation Comments Sodium Lvl (test code = Sodium Lvl) 137 135-145 [place] 255623-07-16 09:32:00 Test Item Value Reference Range Interpretation Comments Potassium Lvl (test code = Potassium 4.5 3.5-5.1 Lvl) [place] 255623-07-16 09:32:00 Test Item Value Reference Range Interpretation Comments Chloride Lvl (test code = Chloride Lvl) 104 95-109 [place] 255623-07-16 09:32:00 Test Item Value Reference Range Interpretation Comments CO2 (test code = CO2) -32 [place] 255623-07-16 09:32:00 Test Item Value Reference Range Interpretation Comments Calcium Lvl (test code = Calcium Lvl) 8.7 8.5-10.5 [place] 255623-07-16 09:32:00 Test Item Value Reference Range Interpretation Comments AGAP (test code = AGAP) 10.5 10.0-20.0 [id number] 09:32:00 Test Item Value Reference Range Interpretation Comments eGFR (test code = eGFR) 94 [facility] 09:32:00 Test Item Value Reference Range Interpretation Comments WBC (test code = WBC) 4.9 3.7-10.4 [facility]qtEJUTHSAAMD9289-40-33 09:32:00 Test Item Value Reference Range Interpretation Comments RBC (test code = RBC) 2.79 4.20-5.40 [facility]ar[facility]ulINOWRXVABS1696-91-74 09:32:00 Test Item Value Reference Range Interpretation Comments Hgb (test code = Hgb) 8.1 12.0-16.0 [place] 713283-07-16 09:32:00 Test Item Value Reference Range Interpretation Comments Hct (test code = Hct) 24.8 36.0-48.0 [facility]ojkykpWPQABJZEFF2340-08-94 09:32:00 Test Item Value Reference Range Interpretation Comments MCV (test code = MCV) 89.1 80.0-98.0 [place] 713283-07-16 09:32:00 Test Item Value Reference Range Interpretation Comments MCH (test code = MCH) 29.1 pg 27.0-31.0 [place] 713283-07-16 09:32:00 Test Item Value Reference Range Interpretation Comments MCHC (test code = MCHC) 32.7 32.0-36.0 [place] 713283-07-16 09:32:00 Test Item Value Reference Range Interpretation Comments RDW (test code = RDW) 14.7 11.5-14.5 [place] [address]-07-16 09:32:00 Test Item Value Reference Range Interpretation Comments Platelet (test code = Platelet) 207 133-450 [facility]jtrpicBVKENKNOCR1136-38-56 09:32:00 Test Item Value Reference Range Interpretation Comments MPV (test code = MPV) 7.9 7.4-10.4 [place] 713283-07-16 09:32:00 Test Item Value Reference Range Interpretation Comments Segs (test code = Segs) 70.2 45.0-75.0 [place] [address]-07-16 09:32:00 Test Item Value Reference Range Interpretation Comments Lymphocytes (test code = Lymphocytes) 14.6 20.0-40.0 [place] [address]-07-16 09:32:00 Test Item Value Reference Range Interpretation Comments Monocytes (test code = Monocytes) 11.9 2.0-12.0 [place] [address]-07-16 09:32:00 Test Item Value Reference Range Interpretation Comments Eosinophils (test code = Eosinophils) 2.5 <=4.0 [place] [address]-07-16 09:32:00 Test Item Value Reference Range Interpretation Comments Basophils (test code = Basophils) 0.8 <=1.0 [place] [address]-07-16 09:32:00 Test Item Value Reference Range Interpretation Comments Neutrophils # (test code = Neutrophils 3.4 1.5-8.1 #) [place] [address]-07-16 09:32:00 Test Item Value Reference Range Interpretation Comments Lymphocytes # (test code = Lymphocytes 0.7 1.0-5.5 #) [place] [address]-07-16 09:32:00 Test Item Value Reference Range Interpretation Comments Monocytes # (test code = Monocytes #) 0.6 <=0.8 [place] [address]-07-16 09:32:00 Test Item Value Reference Range Interpretation Comments Eosinophils # (test code = Eosinophils 0.1 <=0.5 #) [place] [address]-07-16 09:32:00 Test Item Value Reference Range Interpretation Comments Eosinophils # (test code = Eosinophils 0.1 <=0.5 #) [place] 255623-07-16 09:32:00 Test Item Value Reference Range Interpretation Comments Glucose Lvl (test code = Glucose Lvl) 97 70-99 [place] 255623-07-16 09:32:00 Test Item Value Reference Range Interpretation Comments BUN (test code = BUN) 21 7-22 [place] [address]-07-16 09:32:00 Test Item Value Reference Range Interpretation Comments Creatinine Lvl (test code = Creatinine 0.62 0.50-1.40 Lvl) [place] 255623-07-16 09:32:00 Test Item Value Reference Range Interpretation Comments Sodium Lvl (test code = Sodium Lvl) 137 135-145 [place] 255623-07-16 09:32:00 Test Item Value Reference Range Interpretation Comments Potassium Lvl (test code = Potassium 4.5 3.5-5.1 Lvl) [place] 255623-07-16 09:32:00 Test Item Value Reference Range Interpretation Comments Chloride Lvl (test code = Chloride Lvl) 104 95-109 [place] 255623-07-16 09:32:00 Test Item Value Reference Range Interpretation Comments CO2 (test code = CO2) 27 24-32 [place] 255623-07-16 09:32:00 Test Item Value Reference Range Interpretation Comments Calcium Lvl (test code = Calcium Lvl) 8.7 8.5-10.5 [place] 255623-07-16 09:32:00 Test Item Value Reference Range Interpretation Comments AGAP (test code = AGAP) 10.5 10.0-20.0 [place] 255623-07-16 09:32:00 Test Item Value Reference Range Interpretation Comments eGFR (test code = eGFR) 94 [place] 713283-07-16 09:32:00 Test Item Value Reference Range Interpretation Comments WBC (test code = WBC) 4.9 3.7-10.4 [place] 713283-07-16 09:32:00 Test Item Value Reference Range Interpretation Comments RBC (test code = RBC) 2.79 4.20-5.40 [place] 713283-07-16 09:32:00 Test Item Value Reference Range Interpretation Comments Hgb (test code = Hgb) 8.1 12.0-16.0 [place] [address]-07-16 09:32:00 Test Item Value Reference Range Interpretation Comments Hct (test code = Hct) 24.8 36.0-48.0 [place] 713283-07-16 09:32:00 Test Item Value Reference Range Interpretation Comments MCV (test code = MCV) 89.1 80.0-98.0 [place] [address]-07-16 09:32:00 Test Item Value Reference Range Interpretation Comments MCH (test code = MCH) 29.1 pg 27.0-31.0 [place] 713283-07-16 09:32:00 Test Item Value Reference Range Interpretation Comments MCHC (test code = MCHC) 32.7 32.0-36.0 [place] 713283-07-16 09:32:00 Test Item Value Reference Range Interpretation Comments RDW (test code = RDW) 14.7 11.5-14.5 [place] 713283-07-16 09:32:00 Test Item Value Reference Range Interpretation Comments Platelet (test code = Platelet) 207 133-450 [place] 713283-07-16 09:32:00 Test Item Value Reference Range Interpretation Comments MPV (test code = MPV) 7.9 7.4-10.4 [place] [address]-07-16 09:32:00 Test Item Value Reference Range Interpretation Comments Segs (test code = Segs) 70.2 45.0-75.0 [place] 713283-07-16 09:32:00 Test Item Value Reference Range Interpretation Comments Lymphocytes (test code = Lymphocytes) 14.6 20.0-40.0 [place] 713283-07-16 09:32:00 Test Item Value Reference Range Interpretation Comments Monocytes (test code = Monocytes) 11.9 2.0-12.0 [place] [address]-07-16 09:32:00 Test Item Value Reference Range Interpretation Comments Eosinophils (test code = 2.5 See_Comment [A utomated message] The Eosinophils) system which ge nerated this result tra nsmitted reference range : <=4.0. The reference r vasile was not used to int erpret this result as normal/abnormal . [place] 713283-07-16 09:32:00 Test Item Value Reference Range Interpretation Comments Basophils (test code = 0.8 See_Comment [Aut omated message] The Basophils) system which ge nerated this result tra nsmitted reference range : <=1.0. The reference r vasile was not used to int erpret this result as normal/abnormal . [place] [address]-07-16 09:32:00 Test Item Value Reference Range Interpretation Comments Neutrophils # (test code = Neutrophils 3.4 1.5-8.1 #) [place] 713283-07-16 09:32:00 Test Item Value Reference Range Interpretation Comments Lymphocytes # (test code = Lymphocytes 0.7 1.0-5.5 #) [place] [address]-07-16 09:32:00 Test Item Value Reference Range Interpretation Comments Monocytes # (test code 0.6 See_Comment [Aut omated message] The = Monocytes #) system which generated this result tra nsmitted reference range : <=0.8. The reference r vasile was not used to int erpret this result as normal/abnormal . [place] [address]-07-16 09:32:00 Test Item Value Reference Range Interpretation Comments Eosinophils # (test code 0.1 See_Comment [A utomated message] The = Eosinophils #) system [employer] generated this result tra nsmitted reference range : <=0.5. The reference r vasile was not used to int erpret this result as normal/abnormal . [place] [address]-07-16 09:32:00 Test Item Value Reference Range Interpretation Comments Eosinophils # (test code 0.1 See_Comment [A utomated message] The = Eosinophils #) system [employer] generated this result tra nsmitted reference range : <=0.5. The reference r vasile was not used to int erpret this result as normal/abnormal . [place] 255623-07-16 09:32:00 Test Item Value Reference Range Interpretation Comments Glucose Lvl (test code = Glucose Lvl) 97 70-99 [place] [address]-07-16 09:32:00 Test Item Value Reference Range Interpretation Comments BUN (test code = BUN) 21 7-22 [place] [address]-07-16 09:32:00 Test Item Value Reference Range Interpretation Comments Creatinine Lvl (test code = Creatinine 0.62 0.50-1.40 Lvl) [place] [address]-07-16 09:32:00 Test Item Value Reference Range Interpretation Comments Sodium Lvl (test code = Sodium Lvl) 137 135-145 [place] [address]-07-16 09:32:00 Test Item Value Reference Range Interpretation Comments Potassium Lvl (test code = Potassium 4.5 3.5-5.1 Lvl) [place] [address]-07-16 09:32:00 Test Item Value Reference Range Interpretation Comments Chloride Lvl (test code = Chloride Lvl) 104 95-109 [place] 255623-07-16 09:32:00 Test Item Value Reference Range Interpretation Comments CO2 (test code = CO2) 27 24-32 [place] 255623-07-16 09:32:00 Test Item Value Reference Range Interpretation Comments Calcium Lvl (test code = Calcium Lvl) 8.7 8.5-10.5 [place] 255623-07-16 09:32:00 Test Item Value Reference Range Interpretation Comments AGAP (test code = AGAP) 10.5 10.0-20.0 [place] 255623-07-16 09:32:00 Test Item Value Reference Range Interpretation Comments eGFR (test code = eGFR) 94 [place] 713283-07-16 09:32:00 Test Item Value Reference Range Interpretation Comments WBC (test code = WBC) 4.9 3.7-10.4 [place] 713283-07-16 09:32:00 Test Item Value Reference Range Interpretation Comments RBC (test code = RBC) 2.79 4.20-5.40 [place] [address]-07-16 09:32:00 Test Item Value Reference Range Interpretation Comments Hgb (test code = Hgb) 8.1 12.0-16.0 [place] [address]-07-16 09:32:00 Test Item Value Reference Range Interpretation Comments Hct (test code = Hct) 24.8 36.0-48.0 [place] 713283-07-16 09:32:00 Test Item Value Reference Range Interpretation Comments MCV (test code = MCV) 89.1 80.0-98.0 [place] [address]-07-16 09:32:00 Test Item Value Reference Range Interpretation Comments MCH (test code = MCH) 29.1 pg 27.0-31.0 [place] [address]-07-16 09:32:00 Test Item Value Reference Range Interpretation Comments MCHC (test code = MCHC) 32.7 32.0-36.0 [place] [address]-07-16 09:32:00 Test Item Value Reference Range Interpretation Comments RDW (test code = RDW) 14.7 11.5-14.5 [place] [address]-07-16 09:32:00 Test Item Value Reference Range Interpretation Comments Platelet (test code = Platelet) 207 133-450 [place] 713283-07-16 09:32:00 Test Item Value Reference Range Interpretation Comments MPV (test code = MPV) 7.9 7.4-10.4 [place] [address]-07-16 09:32:00 Test Item Value Reference Range Interpretation Comments Segs (test code = Segs) 70.2 45.0-75.0 [place] 713283-07-16 09:32:00 Test Item Value Reference Range Interpretation Comments Lymphocytes (test code = Lymphocytes) 14.6 20.0-40.0 [place] [address]-07-16 09:32:00 Test Item Value Reference Range Interpretation Comments Monocytes (test code = Monocytes) 11.9 2.0-12.0 [place] [address]-07-16 09:32:00 Test Item Value Reference Range Interpretation Comments Eosinophils (test code = 2.5 See_Comment [A utomated message] The Eosinophils) system which ge nerated this result tra nsmitted reference range : <=4.0. The reference r vasile was not used to int erpret this result as normal/abnormal . [place] 713283-07-16 09:32:00 Test Item Value Reference Range Interpretation Comments Basophils (test code = 0.8 See_Comment [Aut omated message] The Basophils) system which ge nerated this result tra nsmitted reference range : <=1.0. The reference r vasile was not used to int erpret this result as normal/abnormal . [facility] 09:32:00 Test Item Value Reference Range Interpretation Comments Neutrophils # (test code = Neutrophils 3.4 1.5-8.1 #) [place] [address]-07-16 09:32:00 Test Item Value Reference Range Interpretation Comments Lymphocytes # (test code = Lymphocytes 0.7 1.0-5.5 #) [place] 713283-07-16 09:32:00 Test Item Value Reference Range Interpretation Comments Monocytes # (test code 0.6 See_Comment [Aut omated message] The = Monocytes #) system which generated this result tra nsmitted reference range : <=0.8. The reference r vasile was not used to int erpret this result as normal/abnormal . [place] [address]-07-16 09:32:00 Test Item Value Reference Range Interpretation Comments Eosinophils # (test code 0.1 See_Comment [A utomated message] The = Eosinophils #) system [employer] generated this result tra nsmitted reference range : <=0.5. The reference r vasile was not used to int erpret this result as normal/abnormal . [place] 713283-07-16 09:32:00 Test Item Value Reference Range Interpretation Comments Eosinophils # (test code 0.1 See_Comment [A utomated message] The = Eosinophils #) system [employer] generated this result tra nsmitted reference range : <=0.5. The reference r vasile was not used to int erpret this result as normal/abnormal . [facility] [id number] 08:40:00 Test Item Value Reference Range Interpretation Comments Glucose Lvl (test code = Glucose Lvl) 92 70-99 [facility] [id number] 08:40:00 Test Item Value Reference Range Interpretation Comments BUN (test code = BUN) 24 7-22 [facility] [id number] 08:40:00 Test Item Value Reference Range Interpretation Comments Creatinine Lvl (test code = Creatinine 0.59 0.50-1.40 Lvl) [facility] [id number] 08:40:00 Test Item Value Reference Range Interpretation Comments Sodium Lvl (test code = Sodium Lvl) 139 135-145 [facility] [id number] 08:40:00 Test Item Value Reference Range Interpretation Comments Potassium Lvl (test code = Potassium 4.3 3.5-5.1 Lvl) [facility] [id number] 08:40:00 Test Item Value Reference Range Interpretation Comments Chloride Lvl (test code = Chloride Lvl) 108 95-109 [facility] [id number] 08:40:00 Test Item Value Reference Range Interpretation Comments CO2 (test code = CO2) 28 24-32 [facility] [id number] 08:40:00 Test Item Value Reference Range Interpretation Comments AGAP (test code = AGAP) 7.3 10.0-20.0 [place] 255623-07-15 08:40:00 Test Item Value Reference Range Interpretation Comments Calcium Lvl (test code = Calcium Lvl) 8.7 8.5-10.5 [place] 255623-07-15 08:40:00 Test Item Value Reference Range Interpretation Comments eGFR (test code = eGFR) 94 [place] [address]-07-15 08:40:00 Test Item Value Reference Range Interpretation Comments Segs (test code = Segs) 67.2 45.0-75.0 [place] [address]-07-15 08:40:00 Test Item Value Reference Range Interpretation Comments Lymphocytes (test code = Lymphocytes) 18.0 20.0-40.0 [place] [address]-07-15 08:40:00 Test Item Value Reference Range Interpretation Comments Monocytes (test code = Monocytes) 10.3 2.0-12.0 [place] [address]-07-15 08:40:00 Test Item Value Reference Range Interpretation Comments Eosinophils (test code = Eosinophils) 3.7 <=4.0 [place] [address]-07-15 08:40:00 Test Item Value Reference Range Interpretation Comments Basophils (test code = Basophils) 0.8 <=1.0 [place] [address]-07-15 08:40:00 Test Item Value Reference Range Interpretation Comments Neutrophils # (test code = Neutrophils 3.0 1.5-8.1 #) [place] [address]-07-15 08:40:00 Test Item Value Reference Range Interpretation Comments Lymphocytes # (test code = Lymphocytes 0.8 1.0-5.5 #) [place] [address]-07-15 08:40:00 Test Item Value Reference Range Interpretation Comments Monocytes # (test code = Monocytes #) 0.5 <=0.8 [place] [address]-07-15 08:40:00 Test Item Value Reference Range Interpretation Comments Eosinophils # (test code = Eosinophils 0.2 <=0.5 #) [place] [address]-07-15 08:40:00 Test Item Value Reference Range Interpretation Comments Sed Rate (test code = Sed Rate) 81 <=20 [place] [address]-07-15 08:40:00 Test Item Value Reference Range Interpretation Comments WBC (test code = WBC) 4.5 3.7-10.4 [place] [address]-07-15 08:40:00 Test Item Value Reference Range Interpretation Comments RBC (test code = RBC) 3.07 4.20-5.40 [place] [address]-07-15 08:40:00 Test Item Value Reference Range Interpretation Comments Hgb (test code = Hgb) 9.0 12.0-16.0 [place] [address]-07-15 08:40:00 Test Item Value Reference Range Interpretation Comments Hct (test code = Hct) 27.2 36.0-48.0 [place] [address]-07-15 08:40:00 Test Item Value Reference Range Interpretation Comments MCV (test code = MCV) 88.5 80.0-98.0 [place] [address]-07-15 08:40:00 Test Item Value Reference Range Interpretation Comments MCH (test code = MCH) 29.2 pg 27.0-31.0 [place] [address]-07-15 08:40:00 Test Item Value Reference Range Interpretation Comments MCHC (test code = MCHC) 33.0 32.0-36.0 [place] [address]-07-15 08:40:00 Test Item Value Reference Range Interpretation Comments RDW (test code = RDW) 15.2 11.5-14.5 [place] [address]-07-15 08:40:00 Test Item Value Reference Range Interpretation Comments Platelet (test code = Platelet) 176 133-450 [place] 713283-07-15 08:40:00 Test Item Value Reference Range Interpretation Comments MPV (test code = MPV) 7.6 7.4-10.4 [place] [address]-07-15 08:40:00 Test Item Value Reference Range Interpretation Comments Sed Rate (test code = Sed Rate) 81 <=20 [place] 255623-07-15 08:40:00 Test Item Value Reference Range Interpretation Comments Glucose Lvl (test code = Glucose Lvl) 92 70-99 [place] 255623-07-15 08:40:00 Test Item Value Reference Range Interpretation Comments BUN (test code = BUN) 24 7-22 [place] [address]-07-15 08:40:00 Test Item Value Reference Range Interpretation Comments Creatinine Lvl (test code = Creatinine 0.59 0.50-1.40 Lvl) [place] [address]-07-15 08:40:00 Test Item Value Reference Range Interpretation Comments Sodium Lvl (test code = Sodium Lvl) 139 135-145 [place] [address]-07-15 08:40:00 Test Item Value Reference Range Interpretation Comments Potassium Lvl (test code = Potassium 4.3 3.5-5.1 Lvl) [place] [address]-07-15 08:40:00 Test Item Value Reference Range Interpretation Comments Chloride Lvl (test code = Chloride Lvl) 108 95-109 [place] [address]-07-15 08:40:00 Test Item Value Reference Range Interpretation Comments CO2 (test code = CO2) 28 24-32 [place] [address]-07-15 08:40:00 Test Item Value Reference Range Interpretation Comments AGAP (test code = AGAP) 7.3 10.0-20.0 [place] [address]-07-15 08:40:00 Test Item Value Reference Range Interpretation Comments Calcium Lvl (test code = Calcium Lvl) 8.7 8.5-10.5 [place] 255623-07-15 08:40:00 Test Item Value Reference Range Interpretation Comments eGFR (test code = eGFR) 94 [place] [address]-07-15 08:40:00 Test Item Value Reference Range Interpretation Comments Segs (test code = Segs) 67.2 45.0-75.0 [place] [address]-07-15 08:40:00 Test Item Value Reference Range Interpretation Comments Lymphocytes (test code = Lymphocytes) 18.0 20.0-40.0 [place] [address]-07-15 08:40:00 Test Item Value Reference Range Interpretation Comments Monocytes (test code = Monocytes) 10.3 2.0-12.0 [place] [address]-07-15 08:40:00 Test Item Value Reference Range Interpretation Comments Eosinophils (test code = 3.7 See_Comment [A utomated message] The Eosinophils) system which ge nerated this result tra nsmitted reference range : <=4.0. The reference r vasile was not used to int erpret this result as normal/abnormal . [place] 713283-07-15 08:40:00 Test Item Value Reference Range Interpretation Comments Basophils (test code = 0.8 See_Comment [Aut omated message] The Basophils) system which ge nerated this result tra nsmitted reference range : <=1.0. The reference r vasile was not used to int erpret this result as normal/abnormal . [place] [address]-07-15 08:40:00 Test Item Value Reference Range Interpretation Comments Neutrophils # (test code = Neutrophils 3.0 1.5-8.1 #) [place] [address]-07-15 08:40:00 Test Item Value Reference Range Interpretation Comments Lymphocytes # (test code = Lymphocytes 0.8 1.0-5.5 #) [place] [address]-07-15 08:40:00 Test Item Value Reference Range Interpretation Comments Monocytes # (test code 0.5 See_Comment [Aut omated message] The = Monocytes #) system which generated this result tra nsmitted reference range : <=0.8. The reference r vasile was not used to int erpret this result as normal/abnormal . [place] [address]-07-15 08:40:00 Test Item Value Reference Range Interpretation Comments Eosinophils # (test code 0.2 See_Comment [A utomated message] The = Eosinophils #) system whic h generated this result tra nsmitted reference range : <=0.5. The reference r vasile was not used to int erpret this result as normal/abnormal . [place] [address]-07-15 08:40:00 Test Item Value Reference Range Interpretation Comments Sed Rate (test code = 81 See_Comment [Auto mated message] The Sed Rate) system which ge nerated this result transmit timmy reference range : <=20. The reference range was not used to interpr et this result as katja l/abnormal. [place] [address]-07-15 08:40:00 Test Item Value Reference Range Interpretation Comments WBC (test code = WBC) 4.5 3.7-10.4 [place] [address]-07-15 08:40:00 Test Item Value Reference Range Interpretation Comments RBC (test code = RBC) 3.07 4.20-5.40 [place] [address]-07-15 08:40:00 Test Item Value Reference Range Interpretation Comments Hgb (test code = Hgb) 9.0 12.0-16.0 [place] [address]-07-15 08:40:00 Test Item Value Reference Range Interpretation Comments Hct (test code = Hct) 27.2 36.0-48.0 [place] [address]-07-15 08:40:00 Test Item Value Reference Range Interpretation Comments MCV (test code = MCV) 88.5 80.0-98.0 [place] [address]-07-15 08:40:00 Test Item Value Reference Range Interpretation Comments MCH (test code = MCH) 29.2 pg 27.0-31.0 [place] [address]-07-15 08:40:00 Test Item Value Reference Range Interpretation Comments MCHC (test code = MCHC) 33.0 32.0-36.0 [place] [address]-07-15 08:40:00 Test Item Value Reference Range Interpretation Comments RDW (test code = RDW) 15.2 11.5-14.5 [place] [address]-07-15 08:40:00 Test Item Value Reference Range Interpretation Comments Platelet (test code = Platelet) 176 133-450 [place] [address]-07-15 08:40:00 Test Item Value Reference Range Interpretation Comments MPV (test code = MPV) 7.6 7.4-10.4 [place] [address]-07-15 08:40:00 Test Item Value Reference Range Interpretation Comments Sed Rate (test code = 81 See_Comment [Auto mated message] The Sed Rate) system which ge nerated this result transmit timmy reference range : <=20. The reference range was not used to interpr et this result as katja l/abnormal. [facility] [employer] [id number] 08:40:00 Test Item Value Reference Range Interpretation Comments Glucose Lvl (test code = Glucose Lvl) 92 70-99 [place] 255623-07-15 08:40:00 Test Item Value Reference Range Interpretation Comments BUN (test code = BUN) 24 7-22 [place] [address]-07-15 08:40:00 Test Item Value Reference Range Interpretation Comments Creatinine Lvl (test code = Creatinine 0.59 0.50-1.40 Lvl) [place] [address]-07-15 08:40:00 Test Item Value Reference Range Interpretation Comments Sodium Lvl (test code = Sodium Lvl) 139 135-145 [place] [address]-07-15 08:40:00 Test Item Value Reference Range Interpretation Comments Potassium Lvl (test code = Potassium 4.3 3.5-5.1 Lvl) [place] [address]-07-15 08:40:00 Test Item Value Reference Range Interpretation Comments Chloride Lvl (test code = Chloride Lvl) 108 95-109 [place] [address]-07-15 08:40:00 Test Item Value Reference Range Interpretation Comments CO2 (test code = CO2) 28 24-32 [place] [address]-07-15 08:40:00 Test Item Value Reference Range Interpretation Comments AGAP (test code = AGAP) 7.3 10.0-20.0 [place] [address]-07-15 08:40:00 Test Item Value Reference Range Interpretation Comments Calcium Lvl (test code = Calcium Lvl) 8.7 8.5-10.5 [place] [address]-07-15 08:40:00 Test Item Value Reference Range Interpretation Comments eGFR (test code = eGFR) 94 [place] [address]-07-15 08:40:00 Test Item Value Reference Range Interpretation Comments Segs (test code = Segs) 67.2 45.0-75.0 [place] [address]-07-15 08:40:00 Test Item Value Reference Range Interpretation Comments Lymphocytes (test code = Lymphocytes) 18.0 20.0-40.0 [place] [address]-07-15 08:40:00 Test Item Value Reference Range Interpretation Comments Monocytes (test code = Monocytes) 10.3 2.0-12.0 [place] [address]-07-15 08:40:00 Test Item Value Reference Range Interpretation Comments Eosinophils (test code = 3.7 See_Comment [A utomated message] The Eosinophils) system which ge nerated this result tra nsmitted reference range : <=4.0. The reference r vasile was not used to int erpret this result as normal/abnormal . [place] [address]-07-15 08:40:00 Test Item Value Reference Range Interpretation Comments Basophils (test code = 0.8 See_Comment [Aut omated message] The Basophils) system which ge nerated this result tra nsmitted reference range : <=1.0. The reference r vasile was not used to int erpret this result as normal/abnormal . [place] [address]-07-15 08:40:00 Test Item Value Reference Range Interpretation Comments Neutrophils # (test code = Neutrophils 3.0 1.5-8.1 #) [place] [address]-07-15 08:40:00 Test Item Value Reference Range Interpretation Comments Lymphocytes # (test code = Lymphocytes 0.8 1.0-5.5 #) [place] [address]-07-15 08:40:00 Test Item Value Reference Range Interpretation Comments Monocytes # (test code 0.5 See_Comment [Aut omated message] The = Monocytes #) system which generated this result tra nsmitted reference range : <=0.8. The reference r vasile was not used to int erpret this result as normal/abnormal . [place] [address]-07-15 08:40:00 Test Item Value Reference Range Interpretation Comments Eosinophils # (test code 0.2 See_Comment [A utomated message] The = Eosinophils #) system whic h generated this result tra nsmitted reference range : <=0.5. The reference r vasile was not used to int erpret this result as normal/abnormal . [place] [address]-07-15 08:40:00 Test Item Value Reference Range Interpretation Comments Sed Rate (test code = 81 See_Comment [Auto mated message] The Sed Rate) system which ge nerated this result transmit timmy reference range : <=20. The reference range was not used to interpr et this result as katja l/abnormal. [place] [address]-07-15 08:40:00 Test Item Value Reference Range Interpretation Comments WBC (test code = WBC) 4.5 3.7-10.4 [place] [address]-07-15 08:40:00 Test Item Value Reference Range Interpretation Comments RBC (test code = RBC) 3.07 4.20-5.40 [place] [address]-07-15 08:40:00 Test Item Value Reference Range Interpretation Comments Hgb (test code = Hgb) 9.0 12.0-16.0 [place] 713283-07-15 08:40:00 Test Item Value Reference Range Interpretation Comments Hct (test code = Hct) 27.2 36.0-48.0 [place] 713283-07-15 08:40:00 Test Item Value Reference Range Interpretation Comments MCV (test code = MCV) 88.5 80.0-98.0 [place] 713283-07-15 08:40:00 Test Item Value Reference Range Interpretation Comments MCH (test code = MCH) 29.2 pg 27.0-31.0 [place] [address]-07-15 08:40:00 Test Item Value Reference Range Interpretation Comments MCHC (test code = MCHC) 33.0 32.0-36.0 [place] 713283-07-15 08:40:00 Test Item Value Reference Range Interpretation Comments RDW (test code = RDW) 15.2 11.5-14.5 [facility] 08:40:00 Test Item Value Reference Range Interpretation Comments Platelet (test code = Platelet) 176 133-450 [facility]zjlfneDNSRWDYAHV0554-11-17 08:40:00 Test Item Value Reference Range Interpretation Comments MPV (test code = MPV) 7.6 7.4-10.4 [place] 713283-07-15 08:40:00 Test Item Value Reference Range Interpretation Comments Sed Rate (test code = 81 See_Comment [Auto mated message] The Sed Rate) system which ge nerated this result transmit timmy reference range : <=20. The reference range was not used to interpr et this result as katja l/abnormal. [facility]2023-07-15 03:41:00 Test Item Value Reference Range Interpretation Comments Folate Lvl (test code = Folate Lvl) 9.5 [facility]2023-07-15 03:41:00 Test Item Value Reference Range Interpretation Comments Vitamin B12 Lvl (test code = Vitamin 427 B12 Lvl) [facility]1111[facility] 03:41:00 Test Item Value Reference Range Interpretation Comments Folate Lvl (test code = Folate Lvl) 9.5 [facility] CenterNabatgpBNUQGANXA5847-75-14 03:41:00 Test Item Value Reference Range Interpretation Comments Vitamin B12 Lvl (test code = Vitamin 201 744-4827 B12 Lvl) [facility]qdl[facility]koIUHPEMHUIU9139-74-28 03:41:00 Test Item Value Reference Range Interpretation Comments ARIES (test code = ARIES) POSITIVE [place] [address]-07-15 03:41:00 Test Item Value Reference Range Interpretation Comments Treponemal Ab (test code Non-Reactive = Treponemal Ab) *NA*(03/24/23 10:41 PM) [place] [address]-07-15 03:41:00 Test Item Value Reference Range Interpretation Comments ARIES Titer (test code = ARIES Titer) 1:[address]07-15 03:41:00 Test Item Value Reference Range Interpretation Comments ARIES Pattern (test code = ARIES Cytoplasmic Pattern) [place] [address]-07-15 03:41:00 Test Item Value Reference Range Interpretation Comments DNA Ab (DS) (test code = DNA Ab (DS)) no gt [facility] CenterPzbbetmTESNLFERWQ2809-22-80 03:41:00 Test Item Value Reference Range Interpretation Comments Sm Ab (test code = Sm Ab) <1.0 NEG [place] [address]-07-15 03:41:00 Test Item Value Reference Range Interpretation Comments SM/HOROLOGIST (test code = SM/HOROLOGIST) <1.0 NEG [place] [address]-07-15 03:41:00 Test Item Value Reference Range Interpretation Comments HOROLOGIST Ab (test code = HOROLOGIST Ab) <1.0 NEG [place] [address]-07-15 03:41:00 Test Item Value Reference Range Interpretation Comments Antichromatin Ab (test code = <1.0 NEG Antichromatin Ab) [place] [address]-07-15 03:41:00 Test Item Value Reference Range Interpretation Comments SS-A (Ro) Ab (test code = SS-A (Ro) <1.0 NEG Ab) [place] [address]-07-15 03:41:00 Test Item Value Reference Range Interpretation Comments SS-B (La) Ab (test code = SS-B (La) <1.0 NEG Ab) [place] [address]-07-15 03:41:00 Test Item Value Reference Range Interpretation Comments SCL- 70 Ab (test code = SCL- 70 Ab) <1.0 NEG [place] [address]-07-15 03:41:00 Test Item Value Reference Range Interpretation Comments DANIELLE-1 Ab (test code = DAINELLE-1 Ab) <1.0 NEG [place] [address]-07-15 03:41:00 Test Item Value Reference Range Interpretation Comments Centromere B Ab (test code = <1.0 NEG Centromere B Ab) [place] [address]-07-15 03:41:00 Test Item Value Reference Range Interpretation Comments Ribosomal P Protein Antibody (test <1.0 NEG code = Ribosomal P Protein Antibody) [place] [address]-07-15 03:41:00 Test Item Value Reference Range Interpretation Comments ARIES Interp (test code = ARIES Interp) SEE NOTE [place] [address]-07-15 03:41:00 Test Item Value Reference Range Interpretation Comments ARIES (test code = ARIES) POSITIVE [place] [address]-07-15 03:41:00 Test Item Value Reference Range Interpretation Comments Treponemal Ab (test code Non-Reactive = Treponemal Ab) *NA*(03/24/23 10:41 PM) [place] [address]-07-15 03:41:00 Test Item Value Reference Range Interpretation Comments ARIES Titer (test code = ARIES Titer) 1:80 [place] [address]-07-15 03:41:00 Test Item Value Reference Range Interpretation Comments ARIES Pattern (test code = ARIES Cytoplasmic Pattern) [place] [address]-07-15 03:41:00 Test Item Value Reference Range Interpretation Comments DNA Ab (DS) (test code = DNA Ab (DS)) no gt [place] [address]-07-15 03:41:00 Test Item Value Reference Range Interpretation Comments Sm Ab (test code = Sm Ab) <1.0 NEG [place] [address]-07-15 03:41:00 Test Item Value Reference Range Interpretation Comments SM/HOROLOGIST (test code = SM/HOROLOGIST) <1.0 NEG [place] [address]-07-15 03:41:00 Test Item Value Reference Range Interpretation Comments HOROLOGIST Ab (test code = HOROLOGIST Ab) <1.0 NEG [place] [address]-07-15 03:41:00 Test Item Value Reference Range Interpretation Comments Antichromatin Ab (test code = <1.0 NEG Antichromatin Ab) [facility]UwmcwuqMTPQZSCJDH7830-90-27 03:41:00 Test Item Value Reference Range Interpretation Comments SS-A (Ro) Ab (test code = SS-A (Ro) <1.0 NEG Ab) [facility] CenterCtdhomlZAPULDBZTJ0433-47-23 03:41:00 Test Item Value Reference Range Interpretation Comments SS-B (La) Ab (test code = SS-B (La) <1.0 NEG Ab) [facility] CenterUmdxryzUXETVHFAPS8192-43-80 03:41:00 Test Item Value Reference Range Interpretation Comments SCL- 70 Ab (test code = SCL- 70 Ab) <1.0 NEG [facility] CenterJzvgodvGQJQESZVQC3828-60-30 03:41:00 Test Item Value Reference Range Interpretation Comments DANIELLE-1 Ab (test code = DANIELLE-1 Ab) <1.0 NEG [facility] CenterGvvyzhdTSVKTTSTQN2335-87-65 03:41:00 Test Item Value Reference Range Interpretation Comments Centromere B Ab (test code = <1.0 NEG Centromere B Ab) [facility] CenterYqbpxlfBLXTGFPSTP2138-06-48 03:41:00 Test Item Value Reference Range Interpretation Comments Ribosomal P Protein Antibody (test <1.0 NEG code = Ribosomal P Protein Antibody) [facility] CenterWvrdvsiBYOYRBFBDF0437-97-31 03:41:00 Test Item Value Reference Range Interpretation Comments ARIES Interp (test code = ARIES Interp) SEE NOTE [facility]2023-07-15 03:41:00 Test Item Value Reference Range Interpretation Comments Folate Lvl (test code = Folate Lvl) 9.5 [facility]2023-07-15 03:41:00 Test Item Value Reference Range Interpretation Comments Vitamin B12 Lvl (test code = Vitamin 427 B12 Lvl) [facility]GjgpoyfXRYPYAPFQ5966-48-32 03:41:00 Test Item Value Reference Range Interpretation Comments Folate Lvl (test code = Folate Lvl) 9.5 [facility] CenterRdjlbiaOQLNTIHRP9244-69-57 03:41:00 Test Item Value Reference Range Interpretation Comments Vitamin B12 Lvl (test code = Vitamin 338 400-0393 B12 Lvl) [facility] CenterSvfpcvoLMIANFNRCY0824-42-01 03:41:00 Test Item Value Reference Range Interpretation Comments ARIES (test code = ARIES) POSITIVE [facility] CenterKtbbulpVZIIRULKVA1191-55-10 03:41:00 Test Item Value Reference Range Interpretation Comments Treponemal Ab (test code Non-Reactive = Treponemal Ab) *NA*(03/24/23 10:41 PM) [place] [address]-07-15 03:41:00 Test Item Value Reference Range Interpretation Comments ARIES Titer (test code = ARIES Titer) 1:80 [place] [address]-07-15 03:41:00 Test Item Value Reference Range Interpretation Comments ARIES Pattern (test code = ARIES Cytoplasmic Pattern) [place] [address]-07-15 03:41:00 Test Item Value Reference Range Interpretation Comments DNA Ab (DS) (test code = DNA Ab (DS)) no gt [place] [address]-07-15 03:41:00 Test Item Value Reference Range Interpretation Comments Sm Ab (test code = Sm Ab) <1.0 NEG [place] [address]-07-15 03:41:00 Test Item Value Reference Range Interpretation Comments SM/HOROLOGIST (test code = SM/HOROLOGIST) <1.0 NEG [place] [address]-07-15 03:41:00 Test Item Value Reference Range Interpretation Comments HOROLOGIST Ab (test code = HOROLOGIST Ab) <1.0 NEG [place] [address]-07-15 03:41:00 Test Item Value Reference Range Interpretation Comments Antichromatin Ab (test code = <1.0 NEG Antichromatin Ab) [place] [address]-07-15 03:41:00 Test Item Value Reference Range Interpretation Comments SS-A (Ro) Ab (test code = SS-A (Ro) <1.0 NEG Ab) [place] [address]-07-15 03:41:00 Test Item Value Reference Range Interpretation Comments SS-B (La) Ab (test code = SS-B (La) <1.0 NEG Ab) [place] [address]-07-15 03:41:00 Test Item Value Reference Range Interpretation Comments SCL- 70 Ab (test code = SCL- 70 Ab) <1.0 NEG [place] [address]-07-15 03:41:00 Test Item Value Reference Range Interpretation Comments DANIELLE-1 Ab (test code = DANIELLE-1 Ab) <1.0 NEG [place] [address]-07-15 03:41:00 Test Item Value Reference Range Interpretation Comments Centromere B Ab (test code = <1.0 NEG Centromere B Ab) [place] [address]-07-15 03:41:00 Test Item Value Reference Range Interpretation Comments Ribosomal P Protein Antibody (test <1.0 NEG code = Ribosomal P Protein Antibody) [place] [address]-07-15 03:41:00 Test Item Value Reference Range Interpretation Comments ARIES Interp (test code = ARIES Interp) SEE NOTE [place] [address]-07-15 03:41:00 Test Item Value Reference Range Interpretation Comments ARIES (test code = ARIES) POSITIVE [place] [address]-07-15 03:41:00 Test Item Value Reference Range Interpretation Comments Treponemal Ab (test code Non-Reactive = Treponemal Ab) *NA*(03/24/23 10:41 PM) [place] [address]-07-15 03:41:00 Test Item Value Reference Range Interpretation Comments ARIES Titer (test code = ARIES Titer) 1:80 [place] [address]-07-15 03:41:00 Test Item Value Reference Range Interpretation Comments ARIES Pattern (test code = ARIES Cytoplasmic Pattern) [place] [address]-07-15 03:41:00 Test Item Value Reference Range Interpretation Comments DNA Ab (DS) (test code = DNA Ab (DS)) no gt [place] [address]-07-15 03:41:00 Test Item Value Reference Range Interpretation Comments Sm Ab (test code = Sm Ab) <1.0 NEG [place] [address]-07-15 03:41:00 Test Item Value Reference Range Interpretation Comments SM/HOROLOGIST (test code = SM/HOROLOGIST) <1.0 NEG [place] [address]-07-15 03:41:00 Test Item Value Reference Range Interpretation Comments HOROLOGIST Ab (test code = HOROLOGIST Ab) <1.0 NEG [place] [address]-07-15 03:41:00 Test Item Value Reference Range Interpretation Comments Antichromatin Ab (test code = <1.0 NEG Antichromatin Ab) [place] [address]-07-15 03:41:00 Test Item Value Reference Range Interpretation Comments SS-A (Ro) Ab (test code = SS-A (Ro) <1.0 NEG Ab) [place] [address]-07-15 03:41:00 Test Item Value Reference Range Interpretation Comments SS-B (La) Ab (test code = SS-B (La) <1.0 NEG Ab) [facility]SRUTLBTFEH1246[facility] 03:41:00 Test Item Value Reference Range Interpretation Comments SCL- 70 Ab (test code = SCL- 70 Ab) <1.0 NEG [facility] CenterAgzqfvqYHZLAQZSBD1495-01-91 03:41:00 Test Item Value Reference Range Interpretation Comments DANIELLE-1 Ab (test code = DANIELLE-1 Ab) <1.0 NEG [facility] CenterNygtbtsXWLAJAKWOC8128-67-00 03:41:00 Test Item Value Reference Range Interpretation Comments Centromere B Ab (test code = <1.0 NEG Centromere B Ab) [facility] CenterWitovxlBLIETQFNDM1211-09-11 03:41:00 Test Item Value Reference Range Interpretation Comments Ribosomal P Protein Antibody (test <1.0 NEG code = Ribosomal P Protein Antibody) [facility] CenterFvddvarWADMWQCNIC6099-33-66 03:41:00 Test Item Value Reference Range Interpretation Comments ARIES Interp (test code = ARIES Interp) SEE NOTE [facility]2023-07-15 03:41:00 Test Item Value Reference Range Interpretation Comments Folate Lvl (test code = Folate Lvl) 9.5 [facility]2023-07-15 03:41:00 Test Item Value Reference Range Interpretation Comments Vitamin B12 Lvl (test code = Vitamin 427 B12 Lvl) [facility]PrlluyjSPQIZKHJG9013-56-24 03:41:00 Test Item Value Reference Range Interpretation Comments Folate Lvl (test code = Folate Lvl) 9.5 [facility] CenterWypaidlTCGFHXTZY8882-97-21 03:41:00 Test Item Value Reference Range Interpretation Comments Vitamin B12 Lvl (test code = Vitamin 458 336-6609 B12 Lvl) [facility] CenterYrzlhwnQJHDIIWQIP8815-91-82 03:41:00 Test Item Value Reference Range Interpretation Comments ARIES (test code = ARIES) POSITIVE [facility] CenterFfavmkyCLUJEDVEDP3508-09-74 03:41:00 Test Item Value Reference Range Interpretation Comments Treponemal Ab (test code Non-Reactive = Treponemal Ab) *NA*(03/24/23 10:41 PM) [facility] CenterFltftpwWSWKUMAAHU6717-91-24 03:41:00 Test Item Value Reference Range Interpretation Comments ARIES Titer (test code = ARIES Titer) 1:80 [place] [address]-07-15 03:41:00 Test Item Value Reference Range Interpretation Comments ARIES Pattern (test code = ARIES Cytoplasmic Pattern) [place] [address]-07-15 03:41:00 Test Item Value Reference Range Interpretation Comments DNA Ab (DS) (test code = DNA Ab (DS)) no gt [place] [address]-07-15 03:41:00 Test Item Value Reference Range Interpretation Comments Sm Ab (test code = Sm Ab) <1.0 NEG [place] [address]-07-15 03:41:00 Test Item Value Reference Range Interpretation Comments SM/HOROLOGIST (test code = SM/HOROLOGIST) <1.0 NEG [place] [address]-07-15 03:41:00 Test Item Value Reference Range Interpretation Comments HOROLOGIST Ab (test code = HOROLOGIST Ab) <1.0 NEG [place] [address]-07-15 03:41:00 Test Item Value Reference Range Interpretation Comments Antichromatin Ab (test code = <1.0 NEG Antichromatin Ab) [place] [address]-07-15 03:41:00 Test Item Value Reference Range Interpretation Comments SS-A (Ro) Ab (test code = SS-A (Ro) <1.0 NEG Ab) [place] [address]-07-15 03:41:00 Test Item Value Reference Range Interpretation Comments SS-B (La) Ab (test code = SS-B (La) <1.0 NEG Ab) [place] [address]-07-15 03:41:00 Test Item Value Reference Range Interpretation Comments SCL- 70 Ab (test code = SCL- 70 Ab) <1.0 NEG [place] [address]-07-15 03:41:00 Test Item Value Reference Range Interpretation Comments DANIELLE-1 Ab (test code = DANIELLE-1 Ab) <1.0 NEG [place] [address]-07-15 03:41:00 Test Item Value Reference Range Interpretation Comments Centromere B Ab (test code = <1.0 NEG Centromere B Ab) [place] [address]-07-15 03:41:00 Test Item Value Reference Range Interpretation Comments Ribosomal P Protein Antibody (test <1.0 NEG code = Ribosomal P Protein Antibody) [place] [address]-07-15 03:41:00 Test Item Value Reference Range Interpretation Comments ARIES Interp (test code = ARIES Interp) SEE NOTE [facility] CenterCsvdrkiGFSTGQWCMA1771-82-33 03:41:00 Test Item Value Reference Range Interpretation Comments ARIES (test code = ARIES) POSITIVE [place] [address]-07-15 03:41:00 Test Item Value Reference Range Interpretation Comments Treponemal Ab (test code Non-Reactive = Treponemal Ab) *NA*(03/24/23 10:41 PM) [place] [address]-07-15 03:41:00 Test Item Value Reference Range Interpretation Comments ARIES Titer (test code = ARIES Titer) 1:80 [place] [address]-07-15 03:41:00 Test Item Value Reference Range Interpretation Comments ARIES Pattern (test code = ARIES Cytoplasmic Pattern) [place] [address]-07-15 03:41:00 Test Item Value Reference Range Interpretation Comments DNA Ab (DS) (test code = DNA Ab (DS)) no gt [facility] CenterSiuwbkfGCDSJSQYTV4676-99-40 03:41:00 Test Item Value Reference Range Interpretation Comments Sm Ab (test code = Sm Ab) <1.0 NEG [place] [address]-07-15 03:41:00 Test Item Value Reference Range Interpretation Comments SM/HOROLOGIST (test code = SM/HOROLOGIST) <1.0 NEG [place] [address]-07-15 03:41:00 Test Item Value Reference Range Interpretation Comments HOROLOGIST Ab (test code = HOROLOGIST Ab) <1.0 NEG [place] [address]-07-15 03:41:00 Test Item Value Reference Range Interpretation Comments Antichromatin Ab (test code = <1.0 NEG Antichromatin Ab) [place] [address]-07-15 03:41:00 Test Item Value Reference Range Interpretation Comments SS-A (Ro) Ab (test code = SS-A (Ro) <1.0 NEG Ab) [place] [address]-07-15 03:41:00 Test Item Value Reference Range Interpretation Comments SS-B (La) Ab (test code = SS-B (La) <1.0 NEG Ab) [place] [address]-07-15 03:41:00 Test Item Value Reference Range Interpretation Comments SCL- 70 Ab (test code = SCL- 70 Ab) <1.0 NEG [place] 260243-07-15 03:41:00 Test Item Value Reference Range Interpretation Comments DANIELLE-1 Ab (test code = DANIELLE-1 Ab) <1.0 NEG [place] [address]-07-15 03:41:00 Test Item Value Reference Range Interpretation Comments Centromere B Ab (test code = <1.0 NEG Centromere B Ab) [place] [address]-07-15 03:41:00 Test Item Value Reference Range Interpretation Comments Ribosomal P Protein Antibody (test <1.0 NEG code = Ribosomal P Protein Antibody) [facility] CenterRieevwkVGEDHYMKCW2855-43-27 03:41:00 Test Item Value Reference Range Interpretation Comments ARIES Interp (test code = ARIES Interp) SEE NOTE [facility] CenterMjhdicvZKOGETIKVJ0161-89-69 23:11:00 Test Item Value Reference Range Interpretation Comments HIV Ag/Ab 4th Gen Negative 2*NA*(03/24/23 (test code = HIV 6:11 PM) Ag/Ab 4th Gen) [facility] CenterCotdofbVNVWZXBNIX8187-52-53 23:11:00 Test Item Value Reference Range Interpretation Comments C-REACTIVE PROTEIN (test code = 94.3 C-REACTIVE PROTEIN) [facility] CenterPfzdzhaDVIMAURZPE5675-58-39 23:11:00 Test Item Value Reference Range Interpretation Comments HIV Ag/Ab 4th Gen Negative 3*NA*(03/24/23 (test code = HIV 6:11 PM) Ag/Ab 4th Gen) [facility] CenterVxkrcboWFYQYKJBKF9251-21-35 23:11:00 Test Item Value Reference Range Interpretation Comments C-REACTIVE PROTEIN (test code = 94.3 C-REACTIVE PROTEIN) [facility] CenterQpwaplzNRMIOFWXAX7406-53-02 23:11:00 Test Item Value Reference Range Interpretation Comments HIV Ag/Ab 4th Gen Negative 2*NA*(03/24/23 (test code = HIV 6:11 PM) Ag/Ab 4th Gen) [facility] CenterVefefmhZRKXSWZYHE1741-80-25 23:11:00 Test Item Value Reference Range Interpretation Comments C-REACTIVE PROTEIN (test code = 94.3 C-REACTIVE PROTEIN) [facility] CenterXhldokfQNWYCWPTZE2457-64-91 23:11:00 Test Item Value Reference Range Interpretation Comments HIV Ag/Ab 4th Gen Negative 3*NA*(03/24/23 (test code = HIV 6:11 PM) Ag/Ab 4th Gen) [facility] CenterEqktgjyUKRNCZOGQT8309-06-82 23:11:00 Test Item Value Reference Range Interpretation Comments C-REACTIVE PROTEIN (test code = 94.3 C-REACTIVE PROTEIN) [facility] CenterNxyknkbZZESJWMXBS5078-05-45 23:11:00 Test Item Value Reference Range Interpretation Comments HIV Ag/Ab 4th Gen Negative 2*NA*(03/24/23 (test code = HIV 6:11 PM) Ag/Ab 4th Gen) [facility] CenterYhzomdiYQANETGEQS0486-76-99 23:11:00 Test Item Value Reference Range Interpretation Comments C-REACTIVE PROTEIN (test code = 94.3 C-REACTIVE PROTEIN) [facility]rekwusXETTBENEUC7654-49-96 23:11:00 Test Item Value Reference Range Interpretation Comments HIV Ag/Ab 4th Gen Negative 3*NA*(03/24/23 (test code = HIV 6:11 PM) Ag/Ab 4th Gen) [facility] CenterDqoxgflJFEXVBHSCD3641-92-41 23:11:00 Test Item Value Reference Range Interpretation Comments C-REACTIVE PROTEIN (test code = 94.3 C-REACTIVE PROTEIN) [facility] CenterFyxkrpmENIYNERQU2902-26-60 15:29:00 Test Item Value Reference Range Interpretation Comments T3 Free (test code = T3 Free) 1.42 2.18-3.98 [place] [address]-07-14 15:29:00 Test Item Value Reference Range Interpretation Comments T3 Free (test code = T3 Free) 1.42 2.18-3.98 [facility] CenterNchebmdJLKHBIXPL6803-25-70 15:29:00 Test Item Value Reference Range Interpretation Comments T3 Free (test code = T3 Free) 1.42 2.18-3.98 [place] 713283-07-14 09:34:00 Test Item Value Reference Range Interpretation Comments Eosinophils # (test code = Eosinophils 0.1 <=0.5 #) [place] [address]-07-14 09:34:00 Test Item Value Reference Range Interpretation Comments Eosinophils # (test code 0.1 See_Comment [A utomated message] The = Eosinophils #) system whic h generated this result tra nsmitted reference range : <=0.5. The reference r vasile was not used to int erpret this result as normal/abnormal . [facility]HUW[facility]ZPYXB2733-75-95 09:34:00 Test Item Value Reference Range Interpretation Comments Eosinophils # (test code 0.1 See_Comment [A utomated message] The = Eosinophils #) system [employer] h generated this result tra nsmitted reference range : <=0.5. The reference r vasile was not used to int erpret this result as normal/abnormal . [facility] [id number] 09:48:00 Test Item Value Reference Range Interpretation Comments Total Protein (test code = Total 5.9 6.4-8.4 Protein) [place] 255623-07-13 09:48:00 Test Item Value Reference Range Interpretation Comments Albumin Lvl (test code = Albumin Lvl) 2.6 3.5-5.0 [place] 255623-07-13 09:48:00 Test Item Value Reference Range Interpretation Comments ALT (test code = ALT) 32 <=65 [facility] [id number] 09:48:00 Test Item Value Reference Range Interpretation Comments AST (test code = AST) 46 <=37 [facility] [id number] 09:48:00 Test Item Value Reference Range Interpretation Comments Alk Phos (test code = Alk Phos) 98 39-136 [facility] [id number] 09:48:00 Test Item Value Reference Range Interpretation Comments Bili Total (test code = Bili Total) 0.5 0.2-1.3 [place] 255623-07-13 09:48:00 Test Item Value Reference Range Interpretation Comments B/C Ratio (test code = B/C Ratio) 30 1 6-25 [facility] [id number] 09:48:00 Test Item Value Reference Range Interpretation Comments Globulin (test code = Globulin) 3.3 2.7-4.2 [facility] CenterCEDURONNIE [facility] [id number] 09:48:00 Test Item Value Reference Range Interpretation Comments A/G Ratio (test code = A/G Ratio) 0.8 1 0.7-1.6 [place] [address]-07-13 09:48:00 Test Item Value Reference Range Interpretation Comments Total Protein (test code = Total 5.9 6.4-8.4 Protein) [place] [address]-07-13 09:48:00 Test Item Value Reference Range Interpretation Comments Albumin Lvl (test code = Albumin Lvl) 2.6 3.5-5.0 [place] [address]-07-13 09:48:00 Test Item Value Reference Range Interpretation Comments ALT (test code = ALT) 32 <=65 [place] [address]-07-13 09:48:00 Test Item Value Reference Range Interpretation Comments AST (test code = AST) 46 <=37 [place] [address]-07-13 09:48:00 Test Item Value Reference Range Interpretation Comments Alk Phos (test code = Alk Phos) 98 39-136 [place] [address]-07-13 09:48:00 Test Item Value Reference Range Interpretation Comments Bili Total (test code = Bili Total) 0.5 0.2-1.3 [place] [address]-07-13 09:48:00 Test Item Value Reference Range Interpretation Comments B/C Ratio (test code = B/C Ratio) 30 1 6-25 [place] 933583-07-13 09:48:00 Test Item Value Reference Range Interpretation Comments Globulin (test code = Globulin) 3.3 2.7-4.2 [place] [address]-07-13 09:48:00 Test Item Value Reference Range Interpretation Comments A/G Ratio (test code = A/G Ratio) 0.8 1 0.7-1.6 [place] 255623-07-13 09:48:00 Test Item Value Reference Range Interpretation Comments Total Protein (test code = Total 5.9 6.4-8.4 Protein) [place] 255623-07-13 09:48:00 Test Item Value Reference Range Interpretation Comments Albumin Lvl (test code = Albumin Lvl) 2.6 3.5-5.0 [facility] CenterCEDURONNIE [facility] [id number] 09:48:00 Test Item Value Reference Range Interpretation Comments ALT (test code = ALT) 32 See_Comment [Auto mated message] The system which ge nerated this result transmit timmy reference range : <=65. The reference range was not used to interpr et this result as katja l/abnormal. [facility] [id number] 09:48:00 Test Item Value Reference Range Interpretation Comments AST (test code = AST) 46 See_Comment [Auto mated message] The system which ge nerated this result transmit timmy reference range : <=37. The reference range was not used to interpr et this result as katja l/abnormal. [facility] [id number] 09:48:00 Test Item Value Reference Range Interpretation Comments Alk Phos (test code = Alk Phos) 98 39-136 [facility] [id number] 09:48:00 Test Item Value Reference Range Interpretation Comments Bili Total (test code = Bili Total) 0.5 0.2-1.3 [facility] [id number] 09:48:00 Test Item Value Reference Range Interpretation Comments B/C Ratio (test code = B/C Ratio) 30 1 6-25 [facility] [id number] 09:48:00 Test Item Value Reference Range Interpretation Comments Globulin (test code = Globulin) 3.3 2.7-4.2 [facility] [id number] 09:48:00 Test Item Value Reference Range Interpretation Comments A/G Ratio (test code = A/G Ratio) 0.8 1 0.7-1.6 [facility] CenterSiforccXSLOTWAZE0672-08-68 09:48:00 Test Item Value Reference Range Interpretation Comments Total Protein (test code = Total 5.9 6.4-8.4 Protein) [place] [address]-07-13 09:48:00 Test Item Value Reference Range Interpretation Comments Albumin Lvl (test code = Albumin Lvl) 2.6 3.5-5.0 [facility] CenterBzrgtjhNBNLXFQEU6646-79-02 09:48:00 Test Item Value Reference Range Interpretation Comments ALT (test code = ALT) 32 See_Comment [Auto mated message] The system which ge nerated this result transmit timmy reference range : <=65. The reference range was not used to interpr et this result as katja l/abnormal. [facility] CenterVfwtkfzIZPJFYGUH4504-63-66 09:48:00 Test Item Value Reference Range Interpretation Comments AST (test code = AST) 46 See_Comment [Auto mated message] The system which CEL-SCI nerated this result transmit timmy reference range : <=37. The reference range was not used to interpr et this result as katja l/abnormal. [facility] MjnsjsjARPZSGOPT4677-58-22 09:48:00 Test Item Value Reference Range Interpretation Comments Alk Phos (test code = Alk Phos) 98 39-136 [place] [address]-07-13 09:48:00 Test Item Value Reference Range Interpretation Comments Bili Total (test code = Bili Total) 0.5 0.2-1.3 [place] [address]-07-13 09:48:00 Test Item Value Reference Range Interpretation Comments B/C Ratio (test code = B/C Ratio) 30 1 6-25 [place] [address]-07-13 09:48:00 Test Item Value Reference Range Interpretation Comments Globulin (test code = Globulin) 3.3 2.7-4.2 [place] [address]-07-13 09:48:00 Test Item Value Reference Range Interpretation Comments A/G Ratio (test code = A/G Ratio) 0.8 1 0.7-1.6 [place] [address]-07-13 09:48:00 Test Item Value Reference Range Interpretation Comments Total Protein (test code = Total 5.9 6.4-8.4 Protein) [place] [address]-07-13 09:48:00 Test Item Value Reference Range Interpretation Comments Albumin Lvl (test code = Albumin Lvl) 2.6 3.5-5.0 [place] [address]-07-13 09:48:00 Test Item Value Reference Range Interpretation Comments ALT (test code = ALT) 32 See_Comment [Auto mated message] The system which ge nerated this result transmit timmy reference range : <=65. The reference range was not used to interpr et this result as katja l/abnormal. [facility] [id number] 09:48:00 Test Item Value Reference Range Interpretation Comments AST (test code = AST) 46 See_Comment [Auto mated message] The system which ge nerated this result transmit timmy reference range : <=37. The reference range was not used to interpr et this result as katja l/abnormal. [facility] [id number] 09:48:00 Test Item Value Reference Range Interpretation Comments Alk Phos (test code = Alk Phos) 98 39-136 [facility] CenterCEDULUIS [place] [id number] 09:48:00 Test Item Value Reference Range Interpretation Comments Bili Total (test code = Bili Total) 0.5 0.2-1.3 [place] 255623-07-13 09:48:00 Test Item Value Reference Range Interpretation Comments B/C Ratio (test code = B/C Ratio) 30 1 6-25 [place] 255623-07-13 09:48:00 Test Item Value Reference Range Interpretation Comments Globulin (test code = Globulin) 3.3 2.7-4.2 [facility]2023-07-13 09:48:00 Test Item Value Reference Range Interpretation Comments A/G Ratio (test code = A/G Ratio) 0.8 1 0.7-1.6 [place] [address]-07-13 09:48:00 Test Item Value Reference Range Interpretation Comments Total Protein (test code = Total 5.9 6.4-8.4 Protein) [place] [address]-07-13 09:48:00 Test Item Value Reference Range Interpretation Comments Albumin Lvl (test code = Albumin Lvl) 2.6 3.5-5.0 [place] [address]-07-13 09:48:00 Test Item Value Reference Range Interpretation Comments ALT (test code = ALT) 32 See_Comment [Auto mated message] The system which ge nerated this result transmit timmy reference range : <=65. The reference range was not used to interpr et this result as katja l/abnormal. [facility] CenterZxuzunzRABMQZDHN3434-06-39 09:48:00 Test Item Value Reference Range Interpretation Comments AST (test code = AST) 46 See_Comment [Auto mated message] The system which ge nerated this result transmit timmy reference range : <=37. The reference range was not used to interpr et this result as katja l/abnormal. [facility] CenterTaumnmlOVHWFNGHW0869-63-77 09:48:00 Test Item Value Reference Range Interpretation Comments Alk Phos (test code = Alk Phos) 98 39-136 [place] [address]-07-13 09:48:00 Test Item Value Reference Range Interpretation Comments Bili Total (test code = Bili Total) 0.5 0.2-1.3 [place] 933583-07-13 09:48:00 Test Item Value Reference Range Interpretation Comments B/C Ratio (test code = B/C Ratio) 30 1 6-25 [place] [address]-07-13 09:48:00 Test Item Value Reference Range Interpretation Comments Globulin (test code = Globulin) 3.3 2.7-4.2 [facility] CenterOmlpqrxNANGJYRKN9826-12-10 09:48:00 Test Item Value Reference Range Interpretation Comments A/G Ratio (test code = A/G Ratio) 0.8 1 0.7-1.6 [facility] CenterBuz [id number] 04:40:00 Test Item Value Reference Range Interpretation Comments HS Troponin I (test code = HS Troponin 6 I) [facility] CenterZsdebniIKQPZJLIL5662-56-62 04:40:00 Test Item Value Reference Range Interpretation Comments HS Troponin I (test code = HS Troponin 6 I) [facility] [employer] [id number] 04:40:00 Test Item Value Reference Range Interpretation Comments HS Troponin I (test code = HS Troponin 6 I) [facility] WfueoswCECWLNEDZ5751-56-37 04:40:00 Test Item Value Reference Range Interpretation Comments HS Troponin I (test code = HS Troponin 6 I) [facility] Center[facility] [id number] 04:40:00 Test Item Value Reference Range Interpretation Comments HS Troponin I (test code = HS Troponin 6 I) [facility] IuwwhpvSGNSGPCLD1446-92-14 04:40:00 Test Item Value Reference Range Interpretation Comments HS Troponin I (test code = HS Troponin 6 I) [facility] CenterHeidi Shaulis [facility] [id number] 23:23:00 Test Item Value Reference Range Interpretation Comments RBC product (test code Product available = RBC product) 6(03/22/23 6:23 PM) [facility] [id number] 23:23:00 Test Item Value Reference Range Interpretation Comments RBC product (test code Product available = RBC product) 5(03/22/23 6:23 PM) [facility] [employer] [id number] 23:23:00 Test Item Value Reference Range Interpretation Comments RBC product (test code Product available = RBC product) 6(03/22/23 6:23 PM) [facility] [id number] 23:23:00 Test Item Value Reference Range Interpretation Comments RBC product (test code Product available = RBC product) 5(03/22/23 6:23 PM) [facility] [id number] 23:23:00 Test Item Value Reference Range Interpretation Comments RBC product (test code Product available = RBC product) 6(03/22/23 6:23 PM) [facility] [employer] [id number] 23:23:00 Test Item Value Reference Range Interpretation Comments RBC product (test code Product available = RBC product) 5(03/22/23 6:23 PM) [facility] [id number] 10:22:00 Test Item Value Reference Range Interpretation Comments B/C Ratio (test code = B/C Ratio) 27 1 6-25 [facility] [id number] 10:22:00 Test Item Value Reference Range Interpretation Comments Total Protein (test code = Total 5.7 6.4-8.4 Protein) [facility]2023-07-12 10:22:00 Test Item Value Reference Range Interpretation Comments Albumin Lvl (test code = Albumin Lvl) 2.6 3.5-5.0 [facility] [id number] 10:22:00 Test Item Value Reference Range Interpretation Comments Globulin (test code = Globulin) 3.1 2.7-4.2 [facility] [id number] 10:22:00 Test Item Value Reference Range Interpretation Comments A/G Ratio (test code = A/G Ratio) 0.8 1 0.7-1.6 [facility] [id number] 10:22:00 Test Item Value Reference Range Interpretation Comments ALT (test code = ALT) 26 <=65 [facility] [id number] 10:22:00 Test Item Value Reference Range Interpretation Comments AST (test code = AST) 39 <=37 [facility] [id number] 10:22:00 Test Item Value Reference Range Interpretation Comments Alk Phos (test code = Alk Phos) 67 39-136 [facility] [id number] 10:22:00 Test Item Value Reference Range Interpretation Comments Bili Total (test code = Bili Total) 0.3 0.2-1.3 [facility] [id number] 10:22:00 Test Item Value Reference Range Interpretation Comments B/C Ratio (test code = B/C Ratio) 27 1 6-25 [facility] [id number] 10:22:00 Test Item Value Reference Range Interpretation Comments Total Protein (test code = Total 5.7 6.4-8.4 Protein) [facility]2023-07-12 10:22:00 Test Item Value Reference Range Interpretation Comments Albumin Lvl (test code = Albumin Lvl) 2.6 3.5-5.0 [facility]2023-07-12 10:22:00 Test Item Value Reference Range Interpretation Comments Globulin (test code = Globulin) 3.1 2.7-4.2 [facility]2023-07-12 10:22:00 Test Item Value Reference Range Interpretation Comments A/G Ratio (test code = A/G Ratio) 0.8 1 0.7-1.6 [place] 255623-07-12 10:22:00 Test Item Value Reference Range Interpretation Comments ALT (test code = ALT) 26 See_Comment [Auto mated message] The system which ge nerated this result transmit timmy reference range : <=65. The reference range was not used to interpr et this result as katja l/abnormal. [facility]2023-07-12 10:22:00 Test Item Value Reference Range Interpretation Comments AST (test code = AST) 39 See_Comment [Auto mated message] The system which ge nerated this result transmit timmy reference range : <=37. The reference range was not used to interpr et this result as katja l/abnormal. [facility]2023-07-12 10:22:00 Test Item Value Reference Range Interpretation Comments Alk Phos (test code = Alk Phos) 67 39-136 [place] 255623-07-12 10:22:00 Test Item Value Reference Range Interpretation Comments Bili Total (test code = Bili Total) 0.3 0.2-1.3 [place] 255623-07-12 10:22:00 Test Item Value Reference Range Interpretation Comments B/C Ratio (test code = B/C Ratio) 27 1 6-25 [place] 255623-07-12 10:22:00 Test Item Value Reference Range Interpretation Comments Total Protein (test code = Total 5.7 6.4-8.4 Protein) [place] 255623-07-12 10:22:00 Test Item Value Reference Range Interpretation Comments Albumin Lvl (test code = Albumin Lvl) 2.6 3.5-5.0 [facility] [id number] 10:22:00 Test Item Value Reference Range Interpretation Comments Globulin (test code = Globulin) 3.1 2.7-4.2 [facility] [id number] 10:22:00 Test Item Value Reference Range Interpretation Comments A/G Ratio (test code = A/G Ratio) 0.8 1 0.7-1.6 [facility] [id number] 10:22:00 Test Item Value Reference Range Interpretation Comments ALT (test code = ALT) 26 See_Comment [Auto mated message] The system which ge nerated this result transmit timmy reference range : <=65. The reference range was not used to interpr et this result as katja l/abnormal. [facility] [id number] 10:22:00 Test Item Value Reference Range Interpretation Comments AST (test code = AST) 39 See_Comment [Auto mated message] The system which ge nerated this result transmit timmy reference range : <=37. The reference range was not used to interpr et this result as katja l/abnormal. [facility] [id number] 10:22:00 Test Item Value Reference Range Interpretation Comments Alk Phos (test code = Alk Phos) 67 39-136 [facility] [id number] 10:22:00 Test Item Value Reference Range Interpretation Comments Bili Total (test code = Bili Total) 0.3 0.2-1.3 [facility] [id number] 13:10:00 Test Item Value Reference Range Interpretation Comments RBC product (test code Product available = RBC product) (03/21/23 8:10 AM) [facility] [employer] [id number] 13:10:00 Test Item Value Reference Range Interpretation Comments RBC product (test code Product available = RBC product) (03/21/23 8:10 AM) [facility] [employer] [id number] 13:10:00 Test Item Value Reference Range Interpretation Comments RBC product (test code Product available = RBC product) (03/21/23 8:10 AM) [facility] [id number] 08:28:00 Test Item Value Reference Range Interpretation Comments B/C Ratio (test code = B/C Ratio) 26 1 6-25 [place] 255623-07-11 08:28:00 Test Item Value Reference Range Interpretation Comments Total Protein (test code = Total 5.8 6.4-8.4 Protein) [place] 255623-07-11 08:28:00 Test Item Value Reference Range Interpretation Comments Albumin Lvl (test code = Albumin Lvl) 2.9 3.5-5.0 [place] 255623-07-11 08:28:00 Test Item Value Reference Range Interpretation Comments Globulin (test code = Globulin) 2.9 2.7-4.2 [place] 255623-07-11 08:28:00 Test Item Value Reference Range Interpretation Comments A/G Ratio (test code = A/G Ratio) 1.0 1 0.7-1.6 [place] 255623-07-11 08:28:00 Test Item Value Reference Range Interpretation Comments ALT (test code = ALT) 17 <=65 [place] 255623-07-11 08:28:00 Test Item Value Reference Range Interpretation Comments AST (test code = AST) 15 <=37 [place] 255623-07-11 08:28:00 Test Item Value Reference Range Interpretation Comments Alk Phos (test code = Alk Phos) 56 39-136 [facility]2023-07-11 08:28:00 Test Item Value Reference Range Interpretation Comments Bili Total (test code = Bili Total) 0.8 0.2-1.3 [place] 713283-07-11 08:28:00 Test Item Value Reference Range Interpretation Comments Basophils # (test code = Basophils #) 0.1 <=0.2 [place] [address]-07-11 08:28:00 Test Item Value Reference Range Interpretation Comments Basophils # (test code = Basophils #) 0.1 <=0.2 [place] 255623-07-11 08:28:00 Test Item Value Reference Range Interpretation Comments B/C Ratio (test code = B/C Ratio) 26 1 6-25 [place] 255623-07-11 08:28:00 Test Item Value Reference Range Interpretation Comments Total Protein (test code = Total 5.8 6.4-8.4 Protein) [address]07-11 08:28:00 Test Item Value Reference Range Interpretation Comments Albumin Lvl (test code = Albumin Lvl) 2.9 3.5-5.0 [place] [address]-07-11 08:28:00 Test Item Value Reference Range Interpretation Comments Globulin (test code = Globulin) 2.9 2.7-4.2 [place] [address]-07-11 08:28:00 Test Item Value Reference Range Interpretation Comments A/G Ratio (test code = A/G Ratio) 1.0 1 0.7-1.[address]07-11 08:28:00 Test Item Value Reference Range Interpretation Comments ALT (test code = ALT) 17 See_Comment [Auto mated message] The system which ge nerated this result transmit timmy reference range : <=65. The reference range was not used to interpr et this result as katja l/abnormal. [place] [address]-07-11 08:28:00 Test Item Value Reference Range Interpretation Comments AST (test code = AST) 15 See_Comment [Auto mated message] The system which ge nerated this result transmit timmy reference range : <=37. The reference range was not used to interpr et this result as katja l/abnormal. [place] [address]-07-11 08:28:00 Test Item Value Reference Range Interpretation Comments Alk Phos (test code = Alk Phos) 56 39-136 [place] [address]-07-11 08:28:00 Test Item Value Reference Range Interpretation Comments Bili Total (test code = Bili Total) 0.8 0.2-1.3 [place] [address]-07-11 08:28:00 Test Item Value Reference Range Interpretation Comments Basophils # (test code 0.1 See_Comment [Aut omated message] The = Basophils #) system which generated this result tra nsmitted reference range : <=0.2. The reference r vasile was not used to int erpret this result as normal/abnormal . [place] [address]-07-11 08:28:00 Test Item Value Reference Range Interpretation Comments Basophils # (test code 0.1 See_Comment [Aut omated message] The = Basophils #) system which generated this result tra nsmitted reference range : <=0.2. The reference r vasile was not used to int erpret this result as normal/abnormal . [place] 255623-07-11 08:28:00 Test Item Value Reference Range Interpretation Comments B/C Ratio (test code = B/C Ratio) 26 1 6-25 [place] [address]-07-11 08:28:00 Test Item Value Reference Range Interpretation Comments Total Protein (test code = Total 5.8 6.4-8.4 Protein) [place] 255623-07-11 08:28:00 Test Item Value Reference Range Interpretation Comments Albumin Lvl (test code = Albumin Lvl) 2.9 3.5-5.0 [place] [address]-07-11 08:28:00 Test Item Value Reference Range Interpretation Comments Globulin (test code = Globulin) 2.9 2.7-4.2 [place] [address]-07-11 08:28:00 Test Item Value Reference Range Interpretation Comments A/G Ratio (test code = A/G Ratio) 1.0 1 0.7-1.6 [place] [address]-07-11 08:28:00 Test Item Value Reference Range Interpretation Comments ALT (test code = ALT) 17 See_Comment [Auto mated message] The system which ge nerated this result transmit timmy reference range : <=65. The reference range was not used to interpr et this result as katja l/abnormal. [facility] [id number] 08:28:00 Test Item Value Reference Range Interpretation Comments AST (test code = AST) 15 See_Comment [Auto mated message] The system which ge nerated this result transmit timmy reference range : <=37. The reference range was not used to interpr et this result as katja l/abnormal. [place] 255623-07-11 08:28:00 Test Item Value Reference Range Interpretation Comments Alk Phos (test code = Alk Phos) 56 39-136 [place] [address]-07-11 08:28:00 Test Item Value Reference Range Interpretation Comments Bili Total (test code = Bili Total) 0.8 0.2-1.3 [facility]iv[facility]rbOEMEEGBSWK2362-27-24 08:28:00 Test Item Value Reference Range Interpretation Comments Basophils # (test code 0.1 See_Comment [Aut omated message] The = Basophils #) system which generated this result tra nsmitted reference range : <=0.2. The reference r vasile was not used to int erpret this result as normal/abnormal . [facility] AustinTnxgmplLFCMVWJWNX2182-44-28 08:28:00 Test Item Value Reference Range Interpretation Comments Basophils # (test code 0.1 See_Comment [Aut omated message] The = Basophils #) system which generated this result tra nsmitted reference range : <=0.2. The reference r vasile was not used to int erpret this result as normal/abnormal . [facility] [employer]2023-07-10 14:08:00 Test Item Value Reference Range Interpretation Comments RBC product (test code Product available = RBC product) (03/20/23 9:08 AM) [facility] [employer]2023-07-10 14:08:00 Test Item Value Reference Range Interpretation Comments RBC product (test code Product available = RBC product) (03/20/23 9:08 AM) [facility] 14:08:00 Test Item Value Reference Range Interpretation Comments RBC product (test code Product available = RBC product) (03/20/23 9:08 AM) [facility] CenterMfvsftlZWCNZIRIF0883-10-23 13:41:00 Test Item Value Reference Range Interpretation Comments TSH (test code = TSH) 6.450 0.360-3.740 [facility] CenterLkaaqfxVAUXPLCXW3095-17-74 13:41:00 Test Item Value Reference Range Interpretation Comments T4 Free (test code = T4 Free) 0.83 0.76-1.46 [facility] CenterFlfmxkyYDZEFEGZKF1960-34-31 13:41:00 Test Item Value Reference Range Interpretation Comments RBC Morph (test code = Normal (03/20/23 8:41 RBC Morph) AM) [facility] CenterRmtloqsGJMUSOKTZX9373-02-49 13:41:00 Test Item Value Reference Range Interpretation Comments Plt Morph (test code = Normal (03/20/23 8:41 Plt Morph) AM) [facility] CenterIljrrvtJBAUTXEZWC1403-78-04 13:41:00 Test Item Value Reference Range Interpretation Comments RBC Morph (test code = Normal (03/20/23 8:41 RBC Morph) AM) [facility] HospitalAwbiomcQFIOEFFZDM4639-52-41 13:41:00 Test Item Value Reference Range Interpretation Comments Plt Morph (test code = Normal (03/20/23 8:41 Plt Morph) AM) [facility] CenterQzrkensMJHHOMAVG1287-46-84 13:41:00 Test Item Value Reference Range Interpretation Comments TSH (test code = TSH) 6.450 0.360-3.740 [facility] CenterYzpokiuNBLBDZVZW5091-62-70 13:41:00 Test Item Value Reference Range Interpretation Comments T4 Free (test code = T4 Free) 0.83 0.76-1.46 [facility] HospitalBkjghfzXAUBBNXDZQ5828-55-68 13:41:00 Test Item Value Reference Range Interpretation Comments RBC Morph (test code = Normal (03/20/23 8:41 RBC Morph) AM) [facility] HospitalEvuwborQRETSWVEQI9797-34-28 13:41:00 Test Item Value Reference Range Interpretation Comments Plt Morph (test code = Normal (03/20/23 8:41 Plt Morph) AM) [facility] HospitalOdmhmdzFOVMKQBVDB8622-02-89 13:41:00 Test Item Value Reference Range Interpretation Comments RBC Morph (test code = Normal (03/20/23 8:41 RBC Morph) AM) [facility] HospitalHsdddsrINHIQHNNBE7456-93-27 13:41:00 Test Item Value Reference Range Interpretation Comments Plt Morph (test code = Normal (03/20/23 8:41 Plt Morph) AM) [facility] CenterAcgurjbDGBXOQRRX3832-74-28 13:41:00 Test Item Value Reference Range Interpretation Comments TSH (test code = TSH) 6.450 0.360-3.740 [facility] CenterTjkwfdgKTWCCOYWB4800-31-39 13:41:00 Test Item Value Reference Range Interpretation Comments T4 Free (test code = T4 Free) 0.83 0.76-1.46 [facility] HospitalUktqnkzLTKHSOPWCJ5051-16-73 13:41:00 Test Item Value Reference Range Interpretation Comments RBC Morph (test code = Normal (03/20/23 8:41 RBC Morph) AM) [facility] HospitalXvhmlaoTRDNFPJFEG2685-63-35 13:41:00 Test Item Value Reference Range Interpretation Comments Plt Morph (test code = Normal (03/20/23 8:41 Plt Morph) AM) [facility] HospitalXgztrfrFFRYBJSLLG3477-14-25 13:41:00 Test Item Value Reference Range Interpretation Comments RBC Morph (test code = Normal (03/20/23 8:41 RBC Morph) AM) [facility] HospitalKacouuiBIMFQACYPE4215-19-16 13:41:00 Test Item Value Reference Range Interpretation Comments Plt Morph (test code = Normal (03/20/23 8:41 Plt Morph) AM) [place] 398023-07-10 10:50:00 Test Item Value Reference Range Interpretation Comments Glucose POC (test code = Glucose POC) 94 70-99 [place] 398023-07-10 10:50:00 Test Item Value Reference Range Interpretation Comments Glucose POC (test code = Glucose POC) 94 70-99 [facility]2023-07-10 10:50:00 Test Item Value Reference Range Interpretation Comments Glucose POC (test code = Glucose POC) 94 70-99 [facility]2023-07-09 21:04:00 Test Item Value Reference Range Interpretation Comments Vitamin D, 25-OH, Total (test code = 32 Vitamin D, 25-OH, Total) [facility] CenterCfstblgPVJWQYDHW7566-11-13 21:04:00 Test Item Value Reference Range Interpretation Comments Vitamin D, 25-OH, Total (test code = 32 30-100 Vitamin D, 25-OH, Total) [facility] CenterAuqmcevVBIIPAFOX4091-08-58 21:04:00 Test Item Value Reference Range Interpretation Comments PTH Intact (test code = PTH Intact) 55.2 18.4-80.1 [facility]RO[facility] HGTCNIL1081-74-30 21:04:00 Test Item Value Reference Range Interpretation Comments PTH Intact (test code = PTH Intact) 55.2 18.4-80.1 [facility]2023-07-09 21:04:00 Test Item Value Reference Range Interpretation Comments Vitamin D, 25-OH, Total (test code = 32 Vitamin D, 25-OH, Total) [facility] CenterAuvmmjtOFTGIXEIH8398-39-98 21:04:00 Test Item Value Reference Range Interpretation Comments Vitamin D, 25-OH, Total (test code = 32 30-100 Vitamin D, 25-OH, Total) [facility] CenterGmquwgxJRPVFFYBO4050-47-18 21:04:00 Test Item Value Reference Range Interpretation Comments PTH Intact (test code = PTH Intact) 55.2 18.4-80.1 [facility] FallsROID OEXJRJJ4121-36-50 21:04:00 Test Item Value Reference Range Interpretation Comments PTH Intact (test code = PTH Intact) 55.2 18.4-80.1 [facility] CenterannCHEM OOOHF6961-43-76 21:04:00 Test Item Value Reference Range Interpretation Comments Vitamin D, 25-OH, Total (test code = 32 Vitamin D, 25-OH, Total) [facility] CenterOielhlbUYMICQGTJ4891-28-95 21:04:00 Test Item Value Reference Range Interpretation Comments Vitamin D, 25-OH, Total (test code = 32 30-100 Vitamin D, 25-OH, Total) [facility] AustinLajneqfEBCZJURKB4967-60-11 21:04:00 Test Item Value Reference Range Interpretation Comments PTH Intact (test code = PTH Intact) 55.2 18.4-80.1 [facility] CenterannPARATHYROID WNGWQLH7252-77-31 21:04:00 Test Item Value Reference Range Interpretation Comments PTH Intact (test code = PTH Intact) 55.2 18.4-80.1 [facility] AustinWxddgjxNZJHSC4422-42-27 17:25:57 Test Item Value Reference Range Interpretation [...] Matthew Curry MD On 03/19/2023 12:24:50; [id number] [place] [id number] 17:25:57 Test Item Value Reference Range Interpretation [...] Matthew Curry MD On 03/19/2023 12:24:50; [id number] [facility] AustinZcunjewQMFOYL1493-10-98 17:25:57 Test Item Value Reference Range Interpretation [...] Matthew Curry MD On 03/19/2023 12:24:50; [id number] [employer] [id number] 15:53:00 Test Item Value Reference Range Interpretation Comments ABO/Rh (test code = ABO/Rh) A NEG [employer] FGHSKVM0064-17-73 15:53:00 Test Item Value Reference Range Interpretation Comments Antibody Scrn (test Positive 8(03/19/23 code = Antibody Scrn) 10:53 AM) [employer] [id number] 15:53:00 Test Item Value Reference Range Interpretation Comments AB Int (test code = AB Int) Anti-D [employer] KUQOWZW9769-28-07 15:53:00 Test Item Value Reference Range Interpretation Comments ABO/Rh (test code = ABO/Rh) A NEG [employer] [id number] 15:53:00 Test Item Value Reference Range Interpretation Comments Antibody Scrn (test Positive 7(03/19/23 code = Antibody Scrn) 10:53 AM) [facility] [employer] [id number] 15:53:00 Test Item Value Reference Range Interpretation Comments AB Int (test code = AB Int) Anti-D [facility] CenterCEDUBioMarCare Technologies [id number] 15:53:00 Test Item Value Reference Range Interpretation Comments ABO/Rh (test code = ABO/Rh) A NEG [facility] [employer] [id number] 15:53:00 Test Item Value Reference Range Interpretation Comments Antibody Scrn (test Positive 8(03/19/23 code = Antibody Scrn) 10:53 AM) [facility] [employer] [id number] 15:53:00 Test Item Value Reference Range Interpretation Comments AB Int (test code = AB Int) Anti-D [facility] CenterCEDUBioMarCare Technologies YBWPFHA6554-06-10 15:53:00 Test Item Value Reference Range Interpretation Comments ABO/Rh (test code = ABO/Rh) A NEG [facility] [employer] [id number] 15:53:00 Test Item Value Reference Range Interpretation Comments Antibody Scrn (test Positive 7(03/19/23 code = Antibody Scrn) 10:53 AM) [facility] [employer] [id number] 15:53:00 Test Item Value Reference Range Interpretation Comments AB Int (test code = AB Int) Anti-D [facility] CenterFlutura Solutions [id number] 15:53:00 Test Item Value Reference Range Interpretation Comments ABO/Rh (test code = ABO/Rh) A NEG [facility] [employer] [id number] 15:53:00 Test Item Value Reference Range Interpretation Comments Antibody Scrn (test Positive 8(03/19/23 code = Antibody Scrn) 10:53 AM) [facility] [employer] [id number] 15:53:00 Test Item Value Reference Range Interpretation Comments AB Int (test code = AB Int) Anti-D [facility] [employer] EJTMHZG7736-04-55 15:53:00 Test Item Value Reference Range Interpretation Comments ABO/Rh (test code = ABO/Rh) A NEG [facility] [employer] [id number] 15:53:00 Test Item Value Reference Range Interpretation Comments Antibody Scrn (test Positive 7(03/19/23 code = Antibody Scrn) 10:53 AM) [facility] ATSEOLJ9976-51-97 15:53:00 Test Item Value Reference Range Interpretation Comments AB Int (test code = AB Int) Anti-D [facility] HospitalWoppksiSRPDTDRARP8343-38-38 15:52:00 Test Item Value Reference Range Interpretation Comments PT (test code = PT) 12.6 s 12.0-14.7 [facility] HospitalSpirfqmZRFGVYGPVH1706-20-59 15:52:00 Test Item Value Reference Range Interpretation Comments PTT (test code = PTT) 31.7 s 22.9-35.8 [facility] HospitalAngqwlrVJINXMUGAY3242-45-02 15:52:00 Test Item Value Reference Range Interpretation Comments INR (test code = INR) 0.94 1 0.87-1.13 [facility] HospitalZyzscoqJRBFKTUQXI9009-96-78 15:52:00 Test Item Value Reference Range Interpretation Comments PT (test code = PT) 12.6 s 12.0-14.7 [facility] HospitalAhgpmeePUWJJCDQFF6083-13-34 15:52:00 Test Item Value Reference Range Interpretation Comments PTT (test code = PTT) 31.7 s 22.9-35.8 [facility] HospitalRfgxewbNWCLBQWNNQ1281-83-20 15:52:00 Test Item Value Reference Range Interpretation Comments INR (test code = INR) 0.94 1 0.87-1.13 [facility] HospitalZngytmzCXXQPJZTZX4037-07-48 15:52:00 Test Item Value Reference Range Interpretation Comments PT (test code = PT) 12.6 s 12.0-14.7 [facility] HospitalCozaqnlEJIEJQYYJP1111-10-65 15:52:00 Test Item Value Reference Range Interpretation Comments PTT (test code = PTT) 31.7 s 22.9-35.8 [facility] HospitalXpqfzdjUMUDERIOMB4891-48-82 15:52:00 Test Item Value Reference Range Interpretation Comments INR (test code = INR) 0.94 1 0.87-1.13 [facility] HospitalWodrhpdUKOQFMVYME2710-81-85 15:52:00 Test Item Value Reference Range Interpretation Comments PT (test code = PT) 12.6 s 12.0-14.7 [facility] HospitalAwhazvuPBQMLGJFOL3415-76-58 15:52:00 Test Item Value Reference Range Interpretation Comments PTT (test code = PTT) 31.7 s 22.9-35.8 [facility] HospitalKhfdaaeSKMMQHAERH8276-51-21 15:52:00 Test Item Value Reference Range Interpretation Comments INR (test code = INR) 0.94 1 0.87-1.13 [facility] HospitalRfiqnxuRQPMKQDIBF3202-95-02 15:52:00 Test Item Value Reference Range Interpretation Comments PT (test code = PT) 12.6 s 12.0-14.7 [place] 713283-07-09 15:52:00 Test Item Value Reference Range Interpretation Comments PTT (test code = PTT) 31.7 s 22.9-35.8 [facility] HospitalRoivogoBUDEJZHWKR8402-36-78 15:52:00 Test Item Value Reference Range Interpretation Comments INR (test code = INR) 0.94 1 0.87-1.13 [facility] HospitalKzyopbqITYNHZUXID5006-77-81 15:52:00 Test Item Value Reference Range Interpretation Comments PT (test code = PT) 12.6 s 12.0-14.7 [place] [address]-07-09 15:52:00 Test Item Value Reference Range Interpretation Comments PTT (test code = PTT) 31.7 s 22.9-35.8 [facility] HospitalBkjbwspZMYEOEMODZ3633-99-06 15:52:00 Test Item Value Reference Range Interpretation Comments INR (test code = INR) 0.94 1 0.87-1.13 [place] [id number] 15:47:07 Test Item Value Reference Range Interpretation [...] Nahum Butler MD On 03/19/2023 10:45:46; [id number] [place] [id number] 15:47:07 Test Item Value Reference Range Interpretation [...] Nahum Butler MD On 03/19/2023 10:45:46; [id number] [facility]FhbpsodMXFPEG2512-85-36 15:47:07 Test Item Value Reference Range Interpretation [...] Nahum Butler MD On 03/19/2023 10:45:46; [id number] [facility] HospitalScqfdxkOVITMC0243-78-04 15:44:40 Test Item Value Reference Range Interpretation [...] Nahum Butler MD On 03/19/2023 10:44:04; [id number] [facility] CampusMqtsdgwCYTVEU5370-94-98 15:44:40 Test Item Value Reference Range Interpretation [...] Nahum Butler MD On 03/19/2023 10:44:04; [id number] [facility] CampusMhlqvqrIIDVMM1645-02-37 15:44:40 Test Item Value Reference Range Interpretation [...] Nahum Butler MD On 03/19/2023 10:44:04; [id number] [facility] CampusKrowuxdCQXAPK2835-94-35 15:42:07 Test Item Value Reference Range Interpretation [...] left femur.Omer Almeida MD On 03/19/2023 10:40:51; [id number] [facility] AustinIelsgkzBJJAAF6075-32-86 15:42:07 Test Item Value Reference Range Interpretation [...] comminuted intertrochanteric fracture of the proximal left femur.Oemr Almeida MD On 03/19/2023 10:40:51; [id number] [facility] CampusPmfzyhzJFYQRK3884-85-78 15:42:07 Test Item Value Reference Range Interpretation [...] left femur.Omer Almeida MD On 03/19/2023 10:40:51; [id number] [facility] [id number] 15:35:52 Test Item Value Reference Range Interpretation [...] left femur.Omer Almeida MD On 03/19/2023 10:34:32; [id number] [facility] [id number] 15:35:52 Test Item Value Reference Range Interpretation [...] left femur.Omer Almeida MD On 03/19/2023 10:34:32; [id number] [facility] [id number] 15:35:52 Test Item Value Reference Range Interpretation [...] left femur.Omer Almeida MD On 03/19/2023 10:34:32; [id number] [facility]2023-07-09 13:35:00 Test Item Value Reference Range Interpretation Comments Gluc POC Comment 1 (test code Notified RN/MD = Gluc POC Comment 1) [facility]2023-07-09 13:35:00 Test Item Value Reference Range Interpretation Comments Gluc POC Comment 2 (test code = Cleaned Meter Gluc POC Comment 2) [facility]2023-07-09 13:35:00 Test Item Value Reference Range Interpretation Comments Gluc POC Comment 1 (test code Notified RN/MD = Gluc POC Comment 1) [place] [id number] 13:35:00 Test Item Value Reference Range Interpretation Comments Gluc POC Comment 2 (test code = Cleaned Meter Gluc POC Comment 2) [place] [id number] 13:35:00 Test Item Value Reference Range Interpretation Comments Gluc POC Comment 1 (test code Notified RN/MD = Gluc POC Comment 1) [place] 398023-07-09 13:35:00 Test Item Value Reference Range Interpretation Comments Gluc POC Comment 2 (test code = Cleaned Meter Gluc POC Comment 2) [facility] W/PLT COUNT & AUTO [id number] 05:48:00 Test Item Value Reference Range Interpretation [...] (BEAKER) (test code = 2801) BASIC METABOLIC [id number] 05:45:00 Test Item Value Reference Range Interpretation [...] S NOT APPLICABLE FOR DIALYSIS PATIEN TS. Analytical Sciences Director ID Breanna CALDERA [id number] 10:10:00 Test Item Value Reference Range Interpretation Comments FERRITIN (BEAKER) (test code = 55.09 ng/mL 5.00-275.00 361) Analytical Sciences Director ID Breanna JONES WVITAMIN B12 AND [id number] 10:10:00 Test Item Value Reference Range Interpretation Comments VITAMIN B12 671 pg/mL 213-816 (BEAKER) (test code = 774) FOLATE (BEAKER) 10.50 ng/mL See_Comment [Automated message] (test code = 362) The system which generated this result transmitted ref erence range: >=7.00. The reference range was not used to interpr et this result as normal/abnormal . Analytical Sciences Director ID - KAREN BOUCHERRON, TIBC, % SAT. (WITHOUT FERRITIN)2021-04-08 09:39:00 Test Item Value Reference Range Interpretation Comments IRON (BEAKER) (test code = 547) 11.0 ug/dL 40.0-160.0 L TOTAL IRON BINDING CAPACITY 309 ug/dL 250-450 (BEAKER) (test code = 769) IRON % SATURATION (2) (BEAKER) 4 % 20-55 L (test code = 2597) Analytical Sciences Director TONIA JONES [facility] W/PLT COUNT & AUTO [id number] 07:58:00 Test Item Value Reference Range Interpretation [...] (BEAKER) (test code = 2801) BASIC METABOLIC [id number] 05:49:00 Test Item Value Reference Range Interpretation [...] S NOT APPLICABLE FOR DIALYSIS PATIEN TS. Analytical Sciences Director ID - BSCBC W/PLT COUNT & AUTO [id number] 05:21:00 Test Item Value Reference Range Interpretation [...] 2801) FL, FLUORO, NON-SPECIFIC, UP TO 1 [id number] 12:45:00Reason for exam:- >ORIF Tibial Plateau Right [facility] CENTERName: IRAJLAURA FABBY : 1950 Sex: FFluoroscopic unit utilized for a procedure performed in the OR. No interpretation was requested. Refer tothe operative report for findings. Refer to PACS for patient radiation dose information.BASIC METABOLIC [id number] 09:58:00 Test Item Value Reference Range Interpretation [...] S NOT APPLICABLE FOR DIALYSIS PATIEN TS. Analytical Sciences Director ID - CANDIS [id number] 09:45:00 Test Item Value Reference Range Interpretation Comments HEMOGLOBIN (BEAKER) (test code = 6.1 GM/DL 11.2-15.7 L 410) Analytical Sciences Director ID - 6000SARS-COV2/RT-PCR ([facility])2021-04-07 09:25:00 Test Item Value Reference Range Interpretation Comments SARS-COV2/RT-PCR Negative Negative The SARS-Co V-2 target (test code = 7395331) nuclei c acids are not detected in [...] Xpress SARS-CoV-2/Flu/RSV by their healthcareprovider. Results from [facility] Xpert Xpress SARS-CoV-2/Flu/RSV test should be [...] of the Act.Fact Sheet for Healthcare Providers:https ://www.[employer] Simple/Documents/Xpert%20Xpress%20SARS%20CoV-2/Fact%20Sheets/302-390 2%95MNQB-SQN-1%20HEALTHCARE%20PROVIDERS%20FACT%20SHEET.pdfFact Sheet for Healthcare Patients:https://www.[employer] Simple/Docum ents/Xpert%20Xpress%20SARS%20Cov-2/Fact%20Sheets/302-3801%54OQMB-MKA-5%20PATIENT %20FACT%20SHEET.pdf History and Physical Notes Date/Time Note Provider Source 2023-04-12 01:40:00 [id number]:40:00Geno Merritt [facility] Tristan Maier MD: PERFORM, MODIFYEvent Display: History and PhysicalAuthored Date: [id number] and Physical Primary Team Name:Team Contact Info:PCP [...] femur. Omer Almeida MD On 03/19/2023 10:40:51; [id number] Hip 2/3 views uni w pelvis DX03/19/2023 10:35 Impression:Acute comminuted intertrochanteric fracture of the proximal left femur. Omer Almeida MD On 03/19/2023 10:34:32; [id number] Assessment/Plan: 1. Fall, accidental (W19.XXXA) monitor 2. [...] Status: Inpatient, Acute, Expected LOS: 2 Midnights, Jaffri, Sayyed Tristan Ali MD, Admit MD Review/Approve Yes, Closed displaced intertrochanteric fracture of left femur | HTN (hypertension) 4. Schizophrenia (F20.9) Resume home medication 5. Moderate malnutrition (E44.0) Dietary consult is placed Prophylaxis Famotidine, DVT prophylaxis per Ortho Disposition Admit inpatient, monitor closely.Geno Merritt MDElectronically Signed: 03/19/23 17:2017195-7Nprhsqk and physicalLNHistory and physicalTXTAVAvailable for patient kztu64953-7Akynnfy and physicalLNGrove Hill Memorial HospitalPbfyawfu4129-16-37J82:47:23 2023-04-12 01:40:00 [id number]:40:00Geno Merritt [facility] Tristan Maier MD: PERFORMEvent Display: History and PhysicalAuthored Date: [id number] STATUS: Full codeDiscussed with the patient, RN, her son on phone, answered all questions.Geno Merritt MDElectronically Signed: 03/19/23 17:4635817-9Uskomdx and physicalLNHistory and physicalTXTAVAvailable for patient ykuq90066-2Ddwxgit and physicalMer[facility]2023-08-04T05:47:23 2023-04-12 01:40:00 1557-40-89I60:40:00Geno Merritt [facility] Darrion FERNANDEZ: PERFORM, MODIFYEvent Display: History and PhysicalAuthored Date: [id number] and Physical Primary Team Name:Team Contact Info:PCP Contact info:Family contact info: Code Status: None Specified=FULL CODE Chief Complaint: Slip and fall on wet floor at [facility], hit left hip and hand with pain [...] femur. Omer Almeida MD On 03/19/2023 10:40:51; [id number] Hip 2/3 views uni w pelvis DX03/19/2023 10:35 Impression:Acute comminuted intertrochanteric fracture of the proximal left femur. Omer Almeida MD On 03/19/2023 10:34:32; [id number] Assessment/Plan: 1. Fall, accidental (W19.XXXA) monitor 2. [...] inpatient, monitor closely.Geno Merritt MDElectronically Signed: 03/19/23 17:5114468-5Xhyyuzg and physicalLNHistory and physicalTXTAVAvailable for patient jvyu78806-5Fkomvxw and physicalLNGrove Hill Memorial HospitalQozcfwjg7040-07-17R09:47:23 2023-04-12 01:40:00 8203-97-23R04:40:00Geno Merritt [facility] Tristan Maier MD: PERFORMEvent Display: History and PhysicalAuthored Date: [id number] STATUS: Full codeDiscussed with the patient, RN, her son on phone, answered all questions.Geno Merritt MDElectronically Signed: 03/19/23 17:2643903-9Mjvsnte and physicalLNHistory and physicalTXTAVAvailable for patient srds35039-9Dldfcvb and physicalLNMHIECampbellton-Graceville HospitalMqaimwmu4008-42-01I38:47:23
[2023-06-16 00:34] LABS: SARS-CoV-2 Antigen Rapid Res Negative (Negative)
--- NOTE | 2023-06-16 00:40 | ER ---
Nurse's Notes [facility] Name: Sharmaine Amaya Age: 73 yrs Sex: Female : 1950 Arrival Date: 06/15/2023 Time: 23:39 Bed IW1 Private MD: Diagnosis: Noninfective gastroenteritis and colitis, unspecified Presentation: 06/16 00:04 Chief complaint: Patient states: has been sick for the last 5 days with night sweats, cm10 nausea, diarrhea. Coronavirus screen: Vaccine status: Patient reports being unvaccinated. Client denies travel out of the [place] in the last 14 days. Ebola Screen: Patient denies travel to an Ebola-affected area in the 21 days before illness onset. No symptoms or risks identified at this time. Initial Sepsis Screen: Does the patient meet any 2 criteria? No. Patient's initial sepsis screen is negative. Does the patient have a suspected source of infection? No. Patient's initial sepsis screen is negative. Risk Assessment: Do you want to hurt yourself or someone else? Patient reports no desire to harm self or others. Onset of symptoms was June 16, 2023. 00:04 Method Of Arrival: Ambulatory cm10 00:04 Method Of Arrival: EMS: [facility] cm10 00:04 Acuity: YOKO 4 cm10 Historical: - Allergies: 00:07 BACITRACIN; cm10 00:07 Bacitracin Zinc; cm10 00:07 benzalkonium chloride; cm10 00:07 Demerol; cm10 00:07 Gramicidin D; cm10 00:07 Iodinated Contrast Media - IV Dye; cm10 00:07 Morphine; cm10 00:07 Neomycin Sulfate; cm10 00:07 Polymyxin B Sulfate; cm10 00:07 triclosan; cm10 - PMHx: 00:07 Hallucinations; cm10 - Immunization history:: Adult Immunizations. - Social history:: Smoking status: unknown. Screenin:34 [facility] ED Fall Risk Assessment (Adult) History of falling in the last 3 months, cm10 including since admission No falls in past 3 months (0 pts) Confusion or Disorientation No (0 pts) Intoxicated or Sedated No (0 pts) Impaired Gait No (0 pts) Mobility Assist Device Used No (0 pt) Altered Elimination No (0 pt) Score/Fall Risk Level 0 - 2 = Low Risk Oriented to surroundings, Maintained a safe environment, Hourly rounding (assess needs \T\ fall precautionary measures) done. Abuse screen: Denies threats or abuse. Denies injuries from another. Nutritional screening: No deficits noted. Tuberculosis screening: No symptoms or risk factors identified. Assessment: 00:33 General: Appears in no apparent distress. comfortable, Behavior is calm, cooperative. cm10 Pain: Denies pain. Neuro: No deficits noted. Level of Consciousness is awake, alert, obeys commands, Oriented to person, place, time, situation. Cardiovascular: No deficits noted. Respiratory: No deficits noted. Airway is patent Respiratory effort is even, unlabored, Respiratory pattern is symmetrical. GI: Reports diarrhea, nausea, vomiting. : No deficits noted. No signs and/or symptoms were reported regarding the genitourinary system. EENT: No signs and/or symptoms were reported regarding the EENT system. Derm: No deficits noted. No signs and/or symptoms reported regarding the dermatologic system. Skin is intact, Skin is pink, warm \T\ dry. Musculoskeletal: No deficits noted. No signs and/or symptoms reported regarding the musculoskeletal system. Vital Signs: 00:04 BP 136 / 67; Pulse 83; Resp 16 S; Temp 98.1; Pulse Ox 100% on R/A; Weight 44.91 kg (R); cm10 Height 5 ft. 6 in. ; 00:04 Body Mass Index 15.98 (44.91 kg, 167.64 cm) cm10 ED Course: 06/15 23:42 Patient arrived in ED. ag3 23:46 Salome Suarez PA-C is PHCP. sb4 23:46 Gage Robert MD is Attending Physician. sb4 10 00:07 Triage completed. cm10 00:08 Arm band placed on Patient placed in waiting room. cm10 00:34 Patient has correct armband on for positive identification. Provided Education on: ER cm10 process and procedures. . 00:34 No provider procedures requiring assistance completed. Patient did not have IV access cm10 during this emergency room visit. Administered Medications: No medications were administered Medication: 00:34 VIS not applicable for this client. cm10 Outcome: 00:39 Discharge ordered by . sb4 00:56 Discharged to home ambulatory, cm10 00:56 Condition: good 00:56 Discharge instructions given to patient, Instructed on discharge instructions, follow up and referral plans. Demonstrated understanding of instructions, follow-up care, 00:56 Patient left the ED. cm10 Signatures: Padmini Davison Sophia, PA-C PA-C sb4 Caroline Velez, RN RN cm10
--- NOTE | 2023-06-16 00:40 | EDPHYS ---
Physician Documentation [facility] Name: Sharmaine Amaya Age: 73 yrs Sex: Female : 1950 Arrival Date: 06/15/2023 Time: 23:39 Bed IW1 Private MD: ED Physician Gage Robert HPI: 06/16 00:36 This 73 yrs old Female presents to ER via EMS with complaints of Flu Symptoms. sb4 00:36 Onset: The symptoms/episode began/occurred 4 day(s) ago. Associated signs and symptoms: sb4 Pertinent positives: diarrhea, fever, chills, Pertinent negatives: chest pain, shortness of breath. Modifying factors: The patient symptoms are alleviated by nothing, the patient symptoms are aggravated by nothing. The patient has not experienced similar symptoms in the past. The patient has been recently seen at the [facility] Emergency Department, a couple of weeks ago. Historical: - Allergies: 00:07 BACITRACIN; cm10 00:07 Bacitracin Zinc; cm10 00:07 benzalkonium chloride; cm10 00:07 Demerol; cm10 00:07 Gramicidin D; cm10 00:07 Iodinated Contrast Media - IV Dye; cm10 00:07 Morphine; cm10 00:07 Neomycin Sulfate; cm10 00:07 Polymyxin B Sulfate; cm10 00:07 triclosan; cm10 - PMHx: 00:07 Hallucinations; cm10 - Immunization history:: Adult Immunizations. - Social history:: Smoking status: unknown. ROS: 00:36 Respiratory: Negative for shortness of breath, cough, wheezing, and pleuritic chest sb4 pain, 00:36 Constitutional: Positive for body aches, chills, fever, 00:36 Abdomen/GI: Positive for nausea, vomiting, and diarrhea, 00:36 All other systems are negative, Exam: 00:36 Constitutional: This is a well developed, well nourished patient who is awake, alert, sb4 and in no acute distress. Head/Face: Normocephalic, atraumatic. Eyes: Extra-ocular motions intact. Periorbital areas with no swelling, redness, or edema. ENT: Mucous membranes moist. Skin: Warm, dry with normal turgor. Normal color with no rashes, no lesions, and no evidence of cellulitis. MS/ Extremity: Pulses equal, no cyanosis. Neurovascular intact. Full, normal range of motion. Neuro: Awake and alert, GCS 15, oriented to person, place, time, and situation. Motor strength 5/5 in all extremities. Sensory grossly intact. Vital Signs: 00:04 BP 136 / 67; Pulse 83; Resp 16 S; Temp 98.1; Pulse Ox 100% on R/A; Weight 44.91 kg (R); cm10 Height 5 ft. 6 in. ; 00:04 Body Mass Index 15.98 (44.91 kg, 167.64 cm) cm10 MDM: 06/15 23:52 Patient medically screened. sb4 06/16 00:36 Differential diagnosis: viral Infection, bacterial infection, URI. Data reviewed: vital sb4 signs, nurses notes, lab test result(s), and as a result, I will discharge patient. Counseling: I had a detailed discussion with the patient and/or guardian regarding the historical points, exam findings, and any diagnostic results supporting the discharge/admit diagnosis, lab results, to return to the emergency department if symptoms worsen or persist or if there are any questions or concerns that arise at home. 06/16 00:09 Order name: Flu; Complete Time: 00:39 cm10 06/16 00:09 Order name: SARS RAPID; Complete Time: 00:35 cm10 Administered Medications: No medications were administered Disposition: 04:32 Co-signature as Attending Physician, Gage Robert MD I agree with the assessment sp4 and plan of care. I reviewed the patient's care provided by the Advanced Practice Provider and agree with the diagnosis and treatment plan. Disposition Summary: 06/16/23 00:39 Discharge Ordered Notes: Location: Home sb4 Problem: an ongoing problem sb4 Symptoms: are unchanged sb4 Condition: Stable sb4 Diagnosis - Noninfective gastroenteritis and colitis, unspecified sb4 Followup: sb4 - With: Emergency Department - When: As needed - Reason: Trouble breathing, Worsening of condition Discharge Instructions: - Discharge Summary Sheet sb4 - Viral Gastroenteritis, Adult sb4 Forms: - Medication Reconciliation Form sb4 - Thank You Letter sb4 - Antibiotic Education sb4 - Prescription Opioid Use sb4 - Patient Portal Instructions sb4 - Leadership Thank You Letter sb4 Signatures: Dispatcher [employer] Salome Dyer, TAL PARADA sb4 Gage Robert MD MD sp4 Caroline Velez RN RN cm10
[2023-06-16 01:04] VITALS: BP 136/67; TEMP 98.1; O2SAT 100
== END 2023-06-16 00:56 | disposition home or self-care (01) ==
LOC: ER 23:39
DX: K52.9 Noninfective gastroenteritis and colitis, unspecified (principal); Z20.822 Contact with and (suspected) exposure to COVID-19; Z88.1 Allergy status to other antibiotic agents; Z88.3 Allergy status to other anti-infective agents; Z88.5 Allergy status to narcotic agent; Z88.8 Allergy status to other drugs, medicaments and biological substances; Z91.041 Radiographic dye allergy status
CPT/HCPCS: 36415; 87804; 87811; 99283

== ENCOUNTER 2023-06-21 03:02 | Emergency (ER) | payer OTHER ==
--- OUTSIDE RECORDS SUMMARY | 2023-06-21 03:08 | XMS REPORT | Continuity of Care Document ---
:1950 Author Organization [facility] t Address [address] [facility] [address] [place] [address] Care Team Providers Name Role Phone Asked, No Pcp Primary Care Physician Unavailable SHAHNAZ RODRIGUEZ Attending Clinician Unavailable Brice Carias DO Attending Clinician Toney Fraire Attending Clinician ULICES GIL Attending Clinician Unavailable ARI WEBBER Attending Clinician Unavailable Chad FERNANDEZ, Stephan Attending Clinician Garrison FERNANDEZ, Yines T Attending Clinician Perico Lira MD Attending Clinician Lottie Blum MD Attending Clinician Tiffany Giron MD Attending Clinician [phone] STEPHAN BONILLA Attending Clinician Unavailable SHAHNAZ RODRIGUEZ Admitting Clinician Unavailable DO BRICE CARIAS Admitting Clinician Unavailable Geno Morales Admitting Clinician Payers Payer Name Policy Type Policy Number Effective Date Expiration Date S alicja [employer]NA MEDICARE [id number] 2019 ADVANTAGE PPO 00:00:00 HU[employer]NA FFS [id number] 2019 00:00:00 [employer]NA MEDICARE [id number] 2019 ADV 00:00:00 Problems Condition Condition Condition Status Onset Resolution Last Treating Co mments Source Name Details Category Date Date Treatment Clinician Date FALL FALL Diagnosis Active 2023-03-19 Mem oria Active 03-19 10:56:00 l 03/19/2023 00:00: Edward frankel [place] [id number] [facility] CLOSED CLOSED Diagnosis Active 2023-04-17 Me franca DISPLACED DISPLACED 03-19 21:48:00 l INTERTROCH INTERTROCH 00:00: He rmann ANTERIC ANTERIC 00 FRACT FRACT Active 03/19/2023 [facility] Displaced Displaced Disease Active [facility] fracture [...] (disorder) (disorder) He rmann Active Problem 04/14/[address] [facility] Schizophre Schizophr Problem Active 2023-04-14 Memoria kelly enia 05:47:23 l (disorder) (disorder) He rmann Active Problem 04/14/[address] [facility] DISPLACED DISPLACED Diagnosis Active 2023-04-17 Memoria INTERTROCH INTERTROCH 21:48:00 l ANTERIC ANTERIC [place] FRACTURE FRACTURE OF OF Active [facility] ESSENTIAL ESSENTIAL Diagnosis Active 2023-04-17 Memoria (PRIMARY) (PRIMARY) 21:48:00 l HYPERTENSI HYPERTENSI He rmann ON ON Active [facility] Allergies, Adverse Reactions, Alerts Allergy Allergy Status Severity Reaction(s) Onset Inactive Treating Comm ents Source Name Type Date Date Clinician Meperidi Propensi Active Method i ne ty to [facility] adverse 00:00: Hospita reaction 00 l s to drug Morphine Propensi Active [facility] Method i ty to [facility] [facility] adverse 00:00: Hospita reaction 00 l s to drug Latex Propensi Active Itching 2022-0 Tristan ty to 6-13 [facility] adverse 00:00: reaction 00 s to drug Shrimp Propensi Active Palpitations 2022-0 Ghosh rris ty to 6-13 Health adverse 00:00: [...] Propensi Active [facility] reaction [facility] [place] [facility] Active Hives 2020-[address] [facility] [address] [facility] Nut [facility]ergy [facility] IODINE Allergy Active High Hives 2020-[address] [facility] SHRIMP Allergy Active High Hives 2020-[address] [facility] Center TRICLOSA Allergy Active High Hives 1-[address] [facility] OTHER Allergy Active 2020-[address] [facility] 00:[facility] Center POISON Allergy Active Other 2020-[address] [facility] [address] [facility] -[facility] EXTRACT 00:00: Medical 00 Center MEPERIDI Allergy Active Low Itching 1-[address] [facility] [facility] 00:00: Medical [...] 00 Center s Iodine Propensi Active Hives 2021-[address] [facility] [address] [facility] to [facility] adverse [...] Poison Propensi Active Other (See [facility] to Comments) [facility] Extract adverse 00:00: Medical reaction 00 Center s NO KNOWN Allergy Active [facility] S morphine morphine Active Memori a l Alec Demerol Demerol Active Memoria l [place] Other Other Active Memoria Food Food l Allergy< Allergy< Edward n sup>1</s sup>1</s up> up> iodine iodine Active Memoria l Alec Social History Social Habit Start Date Stop Date Quantity Comments Source Gender identity [facility] Sexual orientation [facility] History of Social 2023-04-30 2023-04-[address] function 00:00:00 00:00:00 Hospital Exposure to 2023-02-11 2023-02-21 Not sure [facility] SARS-CoV-2 (event) 00:00:00 05:50:00 Alcohol intake 2021-04-08 2021-04-08 Ex-drinker [facility] 00:00:00 00:00:00 (finding) [facility] Center Tobacco use and 2021-04-06 2021-04-[address] [facility] [address] [facility] exposure 00:00:00 00:00:00 tobacco non-user [facility] Sex Assigned At [address] [facility] 00:00:00 00:00:00 [facility] Center Smoking Status Start Date Stop Date Source Tobacco smoking consumption unknown [facility] Tobacco smoking status [facility] Medications Ordered Filled Start Stop Current Ordering Indication Dosage Frequency Signature Comments Components Source Medication Medication Date Date Medication? Clinician (SIG) Name Name gabapentin Yes 100 mg = 1 M emoria 100 mg oral 04-11 cap, PO, l capsule 18:29: Q8Hnow, # Cassandra nn 00 90 cap, 0 Refill(s), Pharmacy: [facility], 152.4, cm, 03/19/23 13:10:00 CDT, Height, 45.455, kg, 03/19/23 13:10:00 CDT, Weight MiraLax 0 Yes Notes: Memoria 7-18 Dissolve l 14:00: in 8 oz of [place] 00 water or juice. (Same as: Miralax) Senokot S Yes Notes: Memori a 7-18 (Same as l 02:00: Senokot-S) [place] 00 Equiv. to Rosie-Colac e. calcium-vit Yes 1 tab, PO, Memoria woods D 500 7-17 BID, # 60 l mg-400 intl 22:07: tab, 2 Herm pema units oral 00 Refill(s), tablet Pharmacy: [facility], 152.4, cm, 03/19/23 13:10:00 [...] nn 00 30 tab, 1 Refill(s), Pharmacy: [facility], 152.4, cm, 03/19/23 13:10:00 CDT, Height, 45.455, kg, 03/19/23 13:10:00 CDT, Weight levothyroxi Yes 50 Memori a ne 50 mcg 7-17 microgram l (0.05 mg) 22:04: = 1 tab, Herm pema oral tablet 00 PO, Q630AM, # 30 tab, 2 Refill(s), Pharmacy: [facility], 152.4, cm, 03/19/23 13:10:00 CDT, Height, 45.455, kg, 03/19/23 13:10:00 CDT, Weight aspirin 81 2023-0 Yes 81 mg = 1 Me moria mg tablet, 7-17 tab, PO, l enteric 22:04: Daily, # Edward n coated 00 30 tab, 2 Refill(s), Pharmacy: [facility], 152.4, cm, 03/19/23 13:10:00 CDT, Height, 45.455, kg, 03/19/23 13:10:00 CDT, Weight lactulose Yes Notes: Memori a 10 g/15 mL -17 (Same l oral syrup 18:00: as:Chronul H erm ac) MiraLax No Notes: Memoria 7-17 Dissolve l 14:17: in 8 oz of water or juice. (Same as: Miralax) Dulcolax No Notes: Memoria Laxative -17 (Same As: l 14:17: Dulcolax, Bisco-Lax) Fleet Enema No 230 mL, Mem oria Extra 17 Route: [place], l 14:17: Drug Form: PRASHANT, Dosing Weight 45.455, kg, ONCE, Start date: 03/27/23 9:17:00 CDT, Stop date: 03/27/23 9:17:00 CDT, 0 Fleet Enema No 133 mL, Mem oria Extra -16 Route: [place], l 23:02: Drug Form: [place] 00 PRASHANT, Dosing Weight 45.455, kg, ONCE, [...] 0 hydrOXYzine Yes Notes: Alex ronald hydrochlori -14 (Same as: l de 25 mg 12:52: Atarax) Edward n oral tablet 00 Avoid alcohol. carvedilol No Notes: Memor ia - Give with l 12:51: food. Alec 00 (Same As: Coreg) midodrine Yes Notes: Memori a - (Same l 20:53: as:Proamat Alec 00 ine) normal No 1,000 mL, Memori a saline 0.9% 03-23 1,000 l (Bolus) IV 17:32: ml/hr, Cassandra nn 00 Infuse Over: 1 hr, Route: IV, 1,000, Drug form: INJ, ONCE, Priority: STAT, Dosing Weight 45.455 kg, Start date: 03/23/23 12:32:00 CDT, Stop date: 03/23/23 12:32:00 CDT, 0 Sodium Yes 250 mL, Memoria Chloride 03-23 Rate: l 0.9% 01:01: Titrate, [place] (titrate) 00 Dosing 250 mL Weight 45.455, kg, Route: IV, Total Volume: 250, Start Date: 03/22/23 20:01:00 CDT, Duration: 30 day, Stop date: 04/21/23 20:00:00 CDT, Replace Every: 24 hr, 0 midodrine No Notes: Memori a -12 (Same l 23:25: as:Proamat [place] 00 ine) NS (Bolus) No 1,000 mL, Me moria IV 03-22 1,000 l 23:22: ml/hr, Alec 00 Infuse Over: 1 hr, Route: IV, 1,000, Drug form: INJ, ONCE, Priority: STAT, Dosing Weight 45.455 kg, Start date: 03/22/23 18:22:00 CDT, Stop date: 03/22/23 18:22:00 CDT, 0 Tylenol Yes Notes: Do Memor ia 7-12 not exceed l 17:06: 4 gm/day. [place] 00 (Same as: Tylenol) ceFAZolin No Notes: [...] CDT, Stop date: 03/20/23 8:51:00 CDT metoprolol 2022-0 No 2.5 mg, Alex ronald 5 mg/5 ml 7-10 Route: l INJ 13:35: IVP, Drug form: INJ, ONCE, Dosing Weight 45.455, kg, Start date: 03/20/23 8:35:00 CDT, Stop date: 03/20/23 8:35:00 CDT metoprolol 2022-0 No 2 mg, Memori a 5 mg/5 ml 7-10 Route: l INJ 13:10: IVP, Drug form: INJ, ONCE, Dosing Weight 45.455, kg, Start date: 03/20/23 8:10:00 CDT, Stop date: 03/20/23 8:10:00 CDT metoprolol 2022-0 No 3 mg, Memori a 5 mg/5 ml 7-10 Route: IV, l INJ 12:52: ONCE, Dosing Weight 45.455, kg, Start date: 03/20/23 7:52:00 CDT, Stop date: 03/20/23 7:52:00 CDT lidocaine 2022-0 No Route: IV, Me moria (ANES) 7-10 Drug form: l 12:39: INJ, ONCE, Stop date: 03/20/23 7:39:00 CDT propofol 2022-0 No Route: IV, Mem oria (ANES) 7-10 Drug form: l 12:39: INJ, ONCE, Stop date: 03/20/23 7:39:00 CDT ondansetron 0 No Route: IV, Memoria (ANES) 7-10 Drug form: l 12:39: INJ, ONCE, Stop date: 03/20/23 7:39:00 CDT dexamethaso 0 No Route: IV, Memoria ne (ANES) 7-10 Drug form: l 12:39: INJ, ONCE, Stop date: 03/20/23 7:39:00 CDT phenylephri 0 No Route: IV, Memoria ne (ANES) 7-10 [...] 7-10 (Same l 02:00: as:Remeron ) docusate 2023-0 No 100 mg, 1 Alex ronald - cap, l 22:00: Route: PO, Drug form: CAP, BID, Dosing Weight 45.455, kg, Start date: 03/19/23 17:00:00 CDT, Duration: 30 day, Stop date: 04/18/23 9:00:00 CDT, 0 risperiDONE No Notes: Alex ronald - (Same as: l 22:00: Risperdal) famotidine Yes [...] (Same as: l oral 16:22: 'Roxicodon solution 00 e) bisacodyl No Notes: Memori a - (Same As: l 16:22: Dulcolax, Bisco-Lax) melatonin Yes Notes: Memori a - (Same as: l 16:22: Melatonin) acetaminoph Yes Notes: Max Memoria en 03-19 acetaminop l 16:21: hen 4000 mg/day (4 gm/day). (Same as: Tylenol Extra Strength) gabapentin Yes Notes: Memor ia - (Same as: l 16:21: Neurontin) mirtazapine No 7.5 mg = 1 Memoria 7.5 mg oral 03-19 tab, PO, l tablet 16:18: Bedtime, # Cassandra nn 00 30 tab, 0 Refill(s) levothyroxi No 25 Memori a ne 25 mcg 7- microgram l (0.025 mg) 16:18: = 1 tab, Her lopez oral tablet 00 PO, Daily, # 30 tab, 0 Refill(s) sertraline No 50 mg = 1 Me moria 50 mg oral 7-09 tab, PO, l tablet 16:17: Daily, # [place] 00 30 tab, 0 Refill(s) risperiDONE No 1 mg = 2 Me moria 0.5 mg oral 7-09 tab, PO, l tablet 16:17: BID, # 120 Cassandra nn 00 tab, 0 Refill(s) OLANZapine No 5 mg = 1 Mem oria 5 mg oral 7-09 tab, PO, l tablet 16:17: Daily, # [place] 00 30 tab, 0 Refill(s) Dilaudid No Notes: Memoria 03-19 Same as: l 14:05: Dilaudid Alec 00 HYDROcodone Yes 1{tbl} Take [address] -acetaminop 7-30 tablet by Isreal es hen (NORCO 23:08: mouth Medica l 10-325) 16 every 6 Center 10-325 mg (six) per tablet hours as needed for Pain. aspirin 81 Yes 81mg QD Take [address] [facility] EC 7-30 by mouth [facility] tablet 23:08: daily. [address] BIOTIN ORAL Yes QD Take by [facility] 23:08: daily. [address] ZINC ORAL 0 Yes QD Take by [facility] 23:08: daily. [address] HYDROcodone Yes 1{tbl} Take [address] -acetaminop 7-30 tablet by Isreal es hen (NORCO 23:08: mouth Medica l 10-325) 16 every 6 Center 10-325 mg (six) per tablet hours as needed for Pain. aspirin 81 Yes 81mg QD Take [address] [facility] EC 7-30 by mouth [facility] tablet 23:08: daily. [address] BIOTIN ORAL 0 Yes QD Take by [facility] 23:08: daily. [address] ZINC ORAL 2020-0 Yes QD Take by [facility] 23:08: daily. [address] HYDROcodone 2020-0 Yes 1{tbl} Take [address] -acetaminop 7-30 tablet by Isreal es hen (NORCO 23:08: mouth Medica l 10-325) 16 every 6 Center 10-325 mg (six) per tablet hours as needed for Pain. aspirin 81 2020-0 Yes 81mg QD Take [address] [facility] EC 7-30 by mouth [facility] tablet 23:08: daily. [address] BIOTIN ORAL 2020-0 Yes QD Take by [facility] 23:08: daily. [address] ZINC ORAL 2020-0 Yes QD Take by [facility] 23:08: daily. [address] HYDROcodone 2020-0 Yes 1{tbl} Take [address] -acetaminop 7-30 tablet by Isreal es hen (NORKS 23:08: mouth Medica l 10-325) 16 every 6 Center 10-325 mg (six) per tablet hours as needed for Pain. aspirin 81 2020-0 Yes 81mg QD Take [address] MG EC 7-30 by mouth [facility] tablet 23:08: daily. [address] BIOTIN ORAL 2020-0 Yes QD Take by [facility] 23:08: daily. [address] ZINC ORAL 2020-0 Yes QD Take by [facility] 23:08: daily. [address] HYDROcodone 2020-0 Yes 1{tbl} Take [address] -acetaminop 7-30 tablet by Isreal es hen (NORCO 23:08: mouth Medica l 10-325) 16 every 6 Center 10-325 mg (six) per tablet hours as needed for Pain. aspirin 81 2020-0 Yes 81mg QD Take [address] [facility] EC 7-30 by mouth [facility] tablet 23:08: daily. [address] BIOTIN ORAL 2020-0 Yes QD Take by [facility] 23:08: daily. [address] ZINC ORAL 2020-0 Yes QD Take by [facility] 23:08: daily. [address] HYDROcodone Yes 1{tbl} Take [address] -acetaminop 7-30 tablet by Isreal ricci (NORCO 23:08: mouth Medica l 10-325) 16 every 6 Center 10-325 mg (six) per tablet hours as needed for Pain. aspirin 81 Yes 81mg QD Take [address] MG EC 7-30 by mouth [facility] tablet 23:08: daily. [address] BIOTIN ORAL Yes QD Take by [facility] 23:08: daily. [address] ZINC ORAL Yes QD Take by [facility] 23:08: daily. [address] Vital Signs Vital Name Observation Time Observation Value Comments Source HEIGHT 2021-04-07 21:25:00 170.2 cm WEIGHT 2021-04-07 21:25:00 55.929 kg HEIGHT 2021-04-07 07:50:00 170.2 cm WEIGHT 2021-04-07 07:50:00 58.968 kg HEIGHT 2021-04-06 15:00:00 170.2 cm WEIGHT 2021-04-06 15:00:00 58.968 kg Systolic blood 2023-02-22 14:35:00 145 mm[Hg] [facility] pressure Diastolic blood 2023-02-22 14:35:00 76 mm[facility]Hg[facility] Heart rate 2023-02-22 14:35:00 80 /min [facility] Body temperature 2023-02-22 14:35:00 36.78 Maria Del Carmen [facility] Respiratory rate 2023-02-22 14:35:00 18 /min [facility] Oxygen saturation in 2023-02-22 14:35:00 98 /min [facility] Arterial blood by Pulse oximetry Body height 2023-02-21 06:05:00 157.5 cm [facility] Body weight 2023-02-21 06:05:00 53.071 kg [facility] BMI 2023-02-21 06:05:00 21.40 kg/m2 [facility] HEIGHT 2021-04-07 21:25:00 170.2 cm WEIGHT 2021-04-07 21:25:00 55.929 kg HEIGHT 2021-04-07 07:50:00 170.2 cm WEIGHT 2021-04-07 07:50:00 58.968 kg HEIGHT 2021-04-06 15:00:00 170.2 cm WEIGHT 2021-04-06 15:00:00 58.968 kg Systolic blood 2023-05-02 03:14:00 119 mm[Hg] [facility] pressure Diastolic blood 2023-05-02 03:14:00 82 mm[Hg] [facility] [place] [place] pressure Heart rate 2023-05-02 03:14:00 80 /min [facility] Body temperature 2023-05-02 03:14:00 36.67 Maria Del Carmen [facility] Respiratory rate 2023-05-02 03:14:00 17 /min [facility] Oxygen saturation in 2023-05-02 03:14:00 98 /min [facility] Arterial blood by Pulse oximetry Body height 2023-04-29 11:20:00 170.2 cm [facility] Body weight 2023-04-29 11:20:00 48.535 kg [facility] BMI 2023-04-29 11:20:00 16.76 kg/m2 [facility] Height 2023-04-11 15:01:00 5 [ft_i] [facility] [place] Weight 2023-04-11 15:01:00 [facility] [place] Heart Rate 2023-04-11 12:46:16 [facility] [place] Systolic (mm Hg) 2023-04-11 12:46:01 Alex rial [place] Diastolic (mm Hg) 2023-04-11 12:46:01 Mem orial [place] Temperature Oral (F) 2023-04-11 12:45:41 97.9 F [facility] Heart Rate 2023-04-10 06:08:16 [facility]c Systolic (mm Hg) 2023-04-10 06:07:37 Alex rial Alec Diastolic (mm Hg) 2023-04-10 06:07:37 Mem orial [place] Heart Rate 2023-04-10 06:07:37 [facility] Alec Temperature Oral (F) 2023-04-10 06:07:34 97.7 F [facility] Heart Rate 2023-04-10 00:40:24 [facility] Respitory Rate 2023-04-10 00:40:24 Memori al [place] Systolic (mm Hg) 2023-04-10 00:40:08 Alex rial Alec Diastolic (mm Hg) 2023-04-10 00:40:08 Mem orial [place] Temperature Oral (F) 2023-04-10 00:38:36 98.4 F [facility] [place] Systolic (mm Hg) 2023-04-09 18:02:31 Alex rial Alec Diastolic (mm Hg) 2023-04-09 18:02:31 Mem orial [place] Temperature Oral (F) 2023-04-09 18:02:29 98.2 F [facility] Respitory Rate 2023-04-08 17:50:18 Memori al Alec Respitory Rate 2023-04-08 13:12:04 Memori al [place] Temperature Oral (F) 2023-04-06 01:32:24 97.7 F [facility] [place] Heart Rate 2023-04-03 01:13:01 [facility] [place] Respitory Rate 2023-04-03 01:13:01 Memori al Alec Systolic (mm Hg) 2023-04-03 01:12:50 Alex rial [place] Diastolic (mm Hg) 2023-04-03 01:12:50 Mem orial [place] Heart Rate 2023-04-03 01:12:50 [facility] [place] Temperature Oral (F) 2023-04-03 01:12:17 98 F [facility] Alec Heart Rate 2023-04-02 17:11:14 [facility] Respitory Rate 2023-04-02 17:11:14 Memori al Alec Temperature Oral (F) 2023-04-02 17:11:05 98.2 F [facility] [place] Systolic (mm Hg) 2023-04-02 17:11:01 Alex rial [place] Diastolic (mm Hg) 2023-04-02 17:11:01 Mem orial Alec Respitory Rate 2023-04-02 12:23:27 Memori al [place] Systolic (mm Hg) 2023-04-02 12:23:18 Alex rial [place] Diastolic (mm Hg) 2023-04-02 12:23:18 Mem orial [place] Temperature Oral (F) 2023-04-02 12:22:21 98.2 F [facility] [place] Height 2023-03-19 18:10:00 152.4 cm Livan Michael Weight 2023-03-19 18:10:00 Livan Michael BMI Calculated 2023-03-19 18:10:00 Brittney Lehman Height 2023-03-19 13:28:00 160.02 cm Livan Michael BMI Calculated 2023-03-19 13:28:00 Brittney Lehman Weight 2023-03-19 13:28:[facility] 2023-02-22 14:35:00 145 mm[Hg] [facility] pressure Diastolic blood 2023-02-22 14:35:00 76 mm[Hg] [facility] Health pressure Heart rate 2023-02-22 14:35:00 80 /min [facility] Body temperature 2023-02-22 14:35:00 36.78 [facility] Del [facility] Respiratory rate 2023-02-22 14:35:00 18 /min [facility] Oxygen saturation in 2023-02-22 14:35:00 98 /min [facility] Arterial blood by Pulse oximetry Body height 2023-02-21 06:05:00 157.5 cm [facility] Body weight 2023-02-21 06:05:00 53.071 kg [facility] BMI 2023-02-21 06:05:00 21.40 kg/m2 [facility] Procedures Procedure Date / Time Performing Clinician Source Performed URINE CULTURE 2023-04-29 18:03:00 Brice Carias [facility] URINE DRUGS OF ABUSE 2023-04-29 16:46:00 CariasBrice sykes [facility] SCREEN URINALYSIS SCREEN AND 2023-04-29 16:46:00 CariasBrice sykes [facility] MICROSCOPY, WITH REFLEX TO CULTURE ECG ED PRELIMINARY 2023-04-29 14:59:55 Brice Carias [facility] INTERPRETATION COVID-19 QUALITATIVE 2023-04-29 12:14:00 CariasBrice sykes [facility] RT-PCR CBC WITH PLATELET AND 2023-04-29 12:14:00 CariasBrice sykes [facility] DIFFERENTIAL COMPREHENSIVE METABOLIC 2023-04-29 12:14:00 [facility]YROID STIMULATING 2023-04-29 12:14:00 Aretha [facility] HORMONE T4, FREE 2023-04-29 12:14:00 Aretha [facility] ALCOHOL LEVEL, BLOOD 2023-04-29 12:14:00 Aretha [facility] ACETAMINOPHEN LEVEL 2023-04-29 12:14:00 Aretha [facility] SALICYLATE LEVEL 2023-04-29 12:14:00 Aretha [facility] ESTIMATED GFR 2023-04-29 12:14:00 Aretha [facility] ECG 12-LEAD 2023-04-29 11:49:49 Aretha [facility] URINE DRUG SCREEN 2023-02-22 02:10:00 Stephan Bonilla [facility] URINALYSIS W/REFLEX TO 2023-02-22 02:10:[address] [facility] URINE CULTURE URINALYSIS 2023-02-22 02:10:00 Stephan Bonilla [facility] URINE CULTURE COLLECTION 2023-02-22 02:10:00 Ghislaine Bonillahin [facility] KIT URINE DRUG SCREEN 2023-02-22 02:10:00 Ghislaine Bonillahin [facility] URINALYSIS W/REFLEX TO 2023-02-22 02:10[facility]00 [facility] UR[facility]AL[facility]IS 2023-02-22 02:10:00 Stephan Bonilla [facility] URINE CULTURE COLLECTION 2023-02-22 02:10:00 Ghislaine Bonillahin [facility] KIT CONSULT CLINICAL CASE 2023-02-21 14:25:23 Kun [facility] MANAGEMENT (RN/SW) Tiffany Vilchis CONSULT CLINICAL CASE 2023-02-21 14:25:23 Kun Giron [facility] MANAGEMENT (RN/SW) Tiffany Vilchis CT HEAD W/O CONTRAST 2023-02-21 10:01:32 Stephan Bonilla [facility] CT HEAD W/O CONTRAST 2023-02-21 10:01:32 Stephan Bonilla [facility] Health CBC/DIFF 2023-02-21 08:21:00 Stephan Bonilla [facility] BASIC METABOLIC PANEL 2023-02-21 08:21:00 [facility] CBC 2023-02-21 08:21:00 Stephan Bonilla [facility] BASIC METABOLIC PANEL 2023-02-21 08:21:00 Stephan Bonilla [facility] CBC/DIFF 2023-02-21 08:21:00 [facility] CBC 2023-02-21 08:21:00 Stephan Bonilla [facility] Plan of Care Planned Activity Planned Date [...] Scheduled 2014 Imm Pneumococcal 65+ (1 Tristan [facility] Test 00:00:00 - PCV) [code = Imm [...] 00:00:00 neoplasm of colon (procedure) [code = 159499952] Future Scheduled 1999 SHINGLES VACCINES (1 of [...] 2)] Future Scheduled 1989 Breast Cancer Scrn [facility] Test 00:00:00 (Yearly) [code = Breast [...] SCREENING] Future Scheduled 1950 COVID-19 Vaccine (#1) Ghosh [...] breast Medical C enter (procedure) [code = 691275124] Future Scheduled 1949 CT Colonography (combo) [facility] Test 00:00:00 [code = CT Colonography [facility] (combo)] Future Scheduled 1949 Screening for malignant [facility] Test 00:00:00 neoplasm of colon Medical Ce nter (procedure) [code = 529452046] Future Scheduled 1949 Screening for malignant [facility] Test 00:00:00 neoplasm of colon Medical Ce nter (procedure) [code = 147796920] Future Scheduled 1950 DXA SCAN [code = DXA [facility] Test 00:00:00 SCAN] [facility] Future Scheduled 1949 Screening for malignant [facility] Test 00:00:00 neoplasm of colon Medical Ce nter (procedure) [code = 330296850] Future Scheduled 1949 Screening for malignant [facility] Test 00:00:00 neoplasm of colon Medical Ce nter (procedure) [code = 431892472] Future Scheduled 1950 Sigmoidoscopy [code = [facility] Test 00:[facility]:00 Sigmoidoscopy] [facility] Future Scheduled 1949 Screening for malignant [facility] Test 00:00:00 neoplasm of breast Medical C enter (procedure) [code = 040868053] Future Scheduled 1949 CT Colonography (combo) [facility] Test 00:00:00 [code = CT Colonography [facility] (combo)] Future Scheduled 1949 Screening for malignant [facility] Test 00:00:00 neoplasm of colon Medical Ce nter (procedure) [code = 088302086] Future Scheduled 1949 Screening for malignant [facility] Test 00:00:00 neoplasm of colon Medical Ce nter (procedure) [code = 127184598] Future Scheduled 1950 DXA SCAN [code = DXA [facility] Test 00:00:00 SCAN] [facility] Future Scheduled 1949 Screening for malignant [facility] Test 00:00:00 neoplasm of colon Medical Ce nter (procedure) [code = 443431751] Future Scheduled 1949 Screening for malignant [facility] Test 00:00:00 neoplasm of colon Medical Ce nter (procedure) [code = 572708412] Future Scheduled 1950 Sigmoidoscopy [code = [facility] Test 00:00:00 Sigmoidoscopy] [facility] Cent[facility] r Future Scheduled 1949 Screening for malignant [facility] Test 00:00:00 neoplasm of breast Medical C enter (procedure) [code = 099600261] Future Scheduled 1950 CT Colonography (combo) [facility] 00:00:00 [code = CT Colonography [facility] (combo)] Future Scheduled 1949 Screening for malignant [facility] 00:00:00 neoplasm of colon Medical Ce nter (procedure) [code = 701375358] Future Scheduled 1949 Screening for malignant [facility] 00:00:00 neoplasm of colon Medical Ce nter (procedure) [code = 728465785] Future Scheduled 1949 DXA SCAN [code = DXA [facility] 00:00:00 SCAN] [facility] Future Scheduled 1949 Screening for malignant [facility] 00:00:00 neoplasm of colon Medical Ce nter (procedure) [code = 238317609] Future Scheduled 1949 Screening for malignant [facility] 00:00:00 neoplasm of colon Medical Ce nter (procedure) [code = 864013706] Future Scheduled 1949 Sigmoidoscopy [code = [facility]] [facility] Future Scheduled 1949 Screening for malignant [facility] 00:00:00 neoplasm of breast Medical C enter (procedure) [code = 106940611] Future Scheduled 1949 CT Colonography (combo) [facility] 00:00:00 [code = CT Colonography [facility] (combo)] Future Scheduled 1949 Screening for malignant [facility] 00:00:00 neoplasm of colon Medical Ce nter (procedure) [code = 500822795] Future Scheduled 1949 Screening for malignant [facility] 00:00:00 neoplasm of colon Medical Ce nter (procedure) [code = 181198769] Future Scheduled 1949 DXA SCAN [code = DXA [facility] 00:00:00 SCAN] [facility] Future Scheduled 1949 Screening for malignant [facility] 00:00:00 neoplasm of colon Medical Ce nter (procedure) [code = 275544762] Future Scheduled 1949 Screening for malignant [facility] 00:00:00 neoplasm of colon Medical Ce nter (procedure) [code = 961499506] Future Scheduled 1949 Sigmoidoscopy [facility]code = [facility] Screening for malignant [facility] 00:00:00 neoplasm of breast Medical C enter (procedure) [code = 698861071] Future Scheduled 1949 CT Colonography (combo) [facility] 00:00:00 [code = CT Colonography [facility] (combo)] Future Scheduled 1949 Screening for malignant [facility] 00:00:00 neoplasm of colon Medical Ce nter (procedure) [code = 393242792] Future Scheduled 1949 Screening for malignant [facility] 00:00:00 neoplasm of colon Medical Ce nter (procedure) [code = 034142154] Future Scheduled 1949 DXA SCAN [code = DXA [facility] 00:00:00 SCAN] [facility] Future Scheduled 1949 Screening for malignant [facility] 00:00:00 neoplasm of colon Medical Ce nter (procedure) [code = 544497580] Future Scheduled 1949 Screening for malignant [facility] 00:00:00 neoplasm of colon Medical Ce nter (procedure) [code = 662368546] Future Scheduled 1949 Sigmoidoscopy [code = [facility]] [facility] r Future Scheduled 1949 Screening for malignant [facility] 00:00:00 neoplasm of breast Medical C enter (procedure) [code = 996847180] Future Scheduled 1949 CT Colonography (combo) [facility] 00:00:00 [code = CT Colonography [facility] (combo)] Future Scheduled 1949 Screening for malignant [facility] 00:00:00 neoplasm of colon Medical Ce nter (procedure) [code = 781320956] Future Scheduled 1949 Screening for malignant [facility] 00:00:00 neoplasm of colon Medical Ce nter (procedure) [code = 577975383] Future Scheduled 1949 DXA SCAN [code = DXA [facility] 00:00:00 SCAN] [facility] Future Scheduled 1949 Screening for malignant [facility] 00:00:00 neoplasm of colon Medical Ce nter (procedure) [code = 129581451] Future Scheduled 1949 Screening for malignant [facility] 00:00:00 neoplasm of colon Medical Ce nter (procedure) [code = 371455241] Future Scheduled 1949 Sigmoidoscopy [code = [facility] Start End Encounter Admission Attending Care Care Encounter Source Date/Time Date/Time Type Type Clinicians Facility Department ID 2023-04-04 Outpatient [facility] [id number] [place] 10:20:03 [id number] [facility] 2023-03-21 Outpatient [facility] [id number] [place] 08:01:14 [id number] [facility] 2021-06-20 Outpatient MICHAEL [facility] Surgery [id number] [facility] 06:18:23 SHAHNAZ 2023-05-26 2023-05-26 Outpatient [facility] [id number] [place] 10:21:20 10:21:20 [id number] F Hermilo 2023-04-29 2023-05-01 Emergency Carias, 1.2.840.1 [id number] Methodi 06:30:00 22:44:00 Brice Ralph [id number] 3.430.2.7 Hospit a .3.195164 l .8 2023-04-29 2023-05-01 Emergency Carias, 1.2.840.1 [id number] Methodi 06:30:00 22:44:00 Brice Ralph [id number] 3.430.2.7 Hospit a .3.679049 l .8 2023-03-19 2023-04-12 Inpatient JONEL [facility] [id number] Joy 13:26:00 01:40:[address] 2023-03-19 2023-04-11 Outpatient Zainjean Red [facility] [id number] 08:26:00 20:40:00 Toney 00 2023-04-05 2023-04-05 Outpatient ANGIE [facility] [id number] [place] 10:00:00 10:00:00 Demian [place] 2023-04-03 2023-04-03 Outpatient WEBBER, [facility] [id number] [place] 00:00[facility] 2023-03-20 Outpatient JUNIOR-Q [facility] [id number] [place] 06:45:00 06:45:00 Demian [place] 2023-03-19 2023-03-19 Outpatient Akram, MH9 [id number] 08:26:00 08:26:00 Jamshaid 00 2023-03-19 2023-03-19 Outpatient Akram, MH9 MH9 [id number] 08:26:00 08:26:00 Jamshaid 00 2023-03-19 2023-03-19 Outpatient Akram, MH9 MH9 [id number] 08:26:00 08:26:00 [facility] 00 2023-02-21 2023-02-22 Emergency Stephan Bonilla 1.2 .840.114 [id number] Kun 06:07:00 15:25:00 [place] [id number] [facility] .2.7.2.6869 Lottie Blum [id number] AlbertoTiffany Tierney 2023-02-21 2023-02-21 Emergency [facility] [id number] [place] 09:18:00 10:01:38 [facility] 2023-02-21 2023-02-21 Emergency [facility] [id number] [place] 00:00:00 00:00:00 [facility] 2023-02-21 2023-02-21 Emergency [facility] [id number] [place] 00:00:00 00:00:00 STEPHAN 2021-04-06 2021-04-06 Outpatient [facility] [id number] SLE 00:00:00 00:00:00 2021-04-06 2021-04-06 Outpatient [facility] [id number] SLE 00:00:00 00:00:00 Results Test Description Test Time Test Comments Results Result Comments Source Urine culture 2023-05-01 00:57:00 Test Item Value Reference Range Interpretation Comme nts Urine culture isolate Mixed kelsey 10-4 Sp ecimen InformationSpecimen (test code = 90233-2) col/cc Source : UrineSpecimen Site: Clean catch [facility] [id number] 00:57:00 Test Item Value Reference Range Interpretation Comments Urine culture Mixed kelsey Specimen isolate (test 10-4 col/cc InformationSpe cimen code = 10792-2) Source: Urin eSpecimen Site: Clean cat [facility] 12 [id number] 11:57:16 Test Item Value Reference Range Interpretation Comments Ventricular rate (test 81 code = 253) Atrial rate (test code = 81 255) [place] interval (test code = 154 266) QRSD [...] available-Electronica lly Signed By Gera Webber MD ([id number]) on 04/30/2023 6:57:11 AM [place] [address] [id number] 11:57:16 Test Item Value Reference Range Interpretation Comments Ventricular rate (test 81 code = 253) Atrial rate (test code = 81 255) [place] interval (test code = 154 266) QRSD [...] available-Electronica lly Signed By Gera Webber MD ([id number]) on 04/30/2023 6:57:11 [facility] [Presence] in Respiratory specimen by GREG with probe [id number] 08:41:44 Test Item Value Reference Range Interpretation Comments SARS-CoV-2 (COVID-19) RNA Not detected [Presence] in Respiratory specimen by GREG with probe detection (test code = 44006-4) Whether patient is employed in a Unknown healthcare setting (test code = 82755-0) Whether the patient has symptoms Unknown related to condition of interest (test code = 40020-6) Whether the patient was Unknown hospitalized for condition of interest (test code = 91664-7) Whether the patient was admitted Unknown to intensive care unit (ICU) for condition of interest (test code = 59080-6) Whether patient resides in a Unknown congregate care setting (test code = 30267-3) status (test code = Unknown 56097-0) Date and time of symptom onset Unknown (test code = 63337-8) FERNANDO WARREN [id number] 16:51:00 Test Item Value Reference Range Interpretation Comments Coronavirus (COVID-19) Detected 20, GREG (test code = 21*ABN*(04/06/23 11:51 Coronavirus (COVID-19) AM) GREG) [id number] 16:51:00 Test Item Value Reference Range Interpretation Comments Coronavirus (COVID-19) Detected 17, GREG (test code = 18*ABN*(04/06/23 11:51 Coronavirus (COVID-19) AM) GREG) [id number] 13:07:00 Test Item Value Reference Range Interpretation Comments Coronavirus (COVID-19) Detected 22, GREG (test code = 23*ABN*(04/04/23 8:07 Coronavirus (COVID-19) AM) GREG) [facility]GW3755[facility]47-13 18:52:00 Test Item Value Reference Range Interpretation Comments Coronavirus (COVID-19) Detected 24, GREG (test code = 25*ABN*(03/28/23 1:52 Coronavirus (COVID-19) PM) GREG) [facility]lo[facility]NUQPQPS2352-08-55 08:33:00 Test Item Value Reference Range Interpretation Comments Potassium Lvl (test code = Potassium 4.3 3.5-5.1 Lvl) [facility] CenterWtwczxbFQPJNPXSS4826-34-27 08:33:00 Test Item Value Reference Range Interpretation Comments Chloride Lvl (test code = Chloride Lvl) 100 95-109 [facility] CenterEzydfmjQTUEGJXAL6077-53-16 08:33:00 Test Item Value Reference Range Interpretation Comments CO2 (test code = CO2) 30 24-32 [facility] CenterZmaokmwTUTSRRXKR3993-50-23 08:33:00 Test Item Value Reference Range Interpretation Comments Calcium Lvl (test code = Calcium Lvl) 9.2 8.5-10.5 [place] 407083-07-17 08:33:00 Test Item Value Reference Range Interpretation Comments AGAP (test code = AGAP) 9.3 10.0-20.0 [place] 407083-07-17 08:33:00 Test Item Value Reference Range Interpretation Comments eGFR (test code = eGFR) 93 [facility]UscpctkIHXWPCFMWF1213-17-99 08:33:00 Test Item Value Reference Range Interpretation Comments Segs (test code = Segs) 78.2 45.0-75.0 [place] 583923-07-17 08:33:00 Test Item Value Reference Range Interpretation Comments Lymphocytes (test code = Lymphocytes) 10.9 20.0-40.0 [place] 583923-07-17 08:33:00 Test Item Value Reference Range Interpretation Comments Monocytes (test code = Monocytes) 10.1 2.0-12.0 [facility] PasoCicywtpRHHPSBEOXL1122-49-18 08:33:00 Test Item Value Reference Range Interpretation Comments Eosinophils (test code = Eosinophils) 0.5 <=4.0 [place] 583923-07-17 08:33:00 Test Item Value Reference Range Interpretation Comments Basophils (test code = Basophils) 0.3 <=1.0 [place] [address]-07-17 08:33:00 Test Item Value Reference Range Interpretation Comments Neutrophils # (test code = Neutrophils 4.7 1.5-8.1 #) [facility] PasoRcmvafuQATCPYPBWX0465-70-75 08:33:00 Test Item Value Reference Range Interpretation Comments Lymphocytes # (test code = Lymphocytes 0.7 1.0-5.5 #) [place] [address]-07-17 08:33:00 Test Item Value Reference Range Interpretation Comments Monocytes # (test code = Monocytes #) 0.6 <=0.8 [place] [address]-07-17 08:33:00 Test Item Value Reference Range Interpretation Comments WBC (test code = WBC) 6.0 3.7-10.4 [place] [address]-07-17 08:33:00 Test Item Value Reference Range Interpretation Comments RBC (test code = RBC) 2.91 4.20-5.40 [place] [address]-07-17 08:33:00 Test Item Value Reference Range Interpretation Comments Hgb (test code = Hgb) 8.3 12.0-16.0 [place] [address]-07-17 08:33:00 Test Item Value Reference Range Interpretation Comments Hct (test code = Hct) 25.8 36.0-48.0 [place] [address]-07-17 08:33:00 Test Item Value Reference Range Interpretation Comments MCV (test code = MCV) 88.5 80.0-98.0 [place] [address]-07-17 08:33:00 Test Item Value Reference Range Interpretation Comments MCH (test code = MCH) 28.6 pg 27.0-31.0 [place] [address]-07-17 08:33:00 Test Item Value Reference Range Interpretation Comments MCHC (test code = MCHC) 32.3 32.0-36.0 [place] [address]-07-17 08:33:00 Test Item Value Reference Range Interpretation Comments RDW (test code = RDW) 14.8 11.5-14.5 [place] [address]-07-17 08:33:00 Test Item Value Reference Range Interpretation Comments Platelet (test code = Platelet) 252 133-450 [facility] PasoQcayuudZXBJFBJHPR0040-65-81 08:33:00 Test Item Value Reference Range Interpretation Comments MPV (test code = MPV) 7.7 7.4-10.4 [place] [address]-07-17 08:33:00 Test Item Value Reference Range Interpretation Comments Segs (test code = Segs) 78.2 45.0-75.0 [place] [address]-07-17 08:33:00 Test Item Value Reference Range Interpretation Comments Lymphocytes (test code = Lymphocytes) 10.9 20.0-40.0 [place] [address]-07-17 08:33:00 Test Item Value Reference Range Interpretation Comments Monocytes (test code = Monocytes) 10.1 2.0-12.0 [place] [address]-07-17 08:33:00 Test Item Value Reference Range Interpretation Comments Eosinophils (test code = Eosinophils) 0.5 <=4.0 [place] [address]-07-17 08:33:00 Test Item Value Reference Range Interpretation Comments Basophils (test code = Basophils) 0.3 <=1.0 [place] [address]-07-17 08:33:00 Test Item Value Reference Range Interpretation Comments Neutrophils # (test code = Neutrophils 4.7 1.5-8.1 #) [place] [address]-07-17 08:33:00 Test Item Value Reference Range Interpretation Comments Lymphocytes # (test code = Lymphocytes 0.7 1.0-5.5 #) [place] [address]-07-17 08:33:00 Test Item Value Reference Range Interpretation Comments Monocytes # (test code = Monocytes #) 0.6 <=0.8 [place] [address]-07-17 08:33:00 Test Item Value Reference Range Interpretation Comments WBC (test code = WBC) 6.0 3.7-10.4 [place] [address]-07-17 08:33:00 Test Item Value Reference Range Interpretation Comments RBC (test code = RBC) 2.91 4.20-5.40 [place] [address]-07-17 08:33:00 Test Item Value Reference Range Interpretation Comments Hgb (test code = Hgb) 8.3 12.0-16.0 [place] [address]-07-17 08:33:00 Test Item Value Reference Range Interpretation Comments Hct (test code = Hct) 25.8 36.0-48.0 [place] [address]-07-17 08:33:00 Test Item Value Reference Range Interpretation Comments MCV (test code = MCV) 88.5 80.0-98.0 [place] [address]-07-17 08:33:00 Test Item Value Reference Range Interpretation Comments MCH (test code = MCH) 28.6 pg 27.0-31.0 [place] [address]-07-17 08:33:00 Test Item Value Reference Range Interpretation Comments MCHC (test code = MCHC) 32.3 32.0-36.0 [place] [address]-07-17 08:33:00 Test Item Value Reference Range Interpretation Comments RDW (test code = RDW) 14.8 11.5-14.5 [place] [address]-07-17 08:33:00 Test Item Value Reference Range Interpretation Comments Platelet (test code = Platelet) 252 133-450 [place] [address]-07-17 08:33:00 Test Item Value Reference Range Interpretation Comments MPV (test code = MPV) 7.7 7.4-10.4 [place] [address]-07-17 08:33:00 Test Item Value Reference Range Interpretation Comments Glucose Lvl (test code = Glucose Lvl) 99 70-99 [place] [address]-07-17 08:33:00 Test Item Value Reference Range Interpretation Comments BUN (test code = BUN) 20 7-22 [place] [address]-07-17 08:33:00 Test Item Value Reference Range Interpretation Comments Creatinine Lvl (test code = Creatinine 0.62 0.50-1.40 Lvl) [place] [address]-07-17 08:33:00 Test Item Value Reference Range Interpretation Comments Sodium Lvl (test code = Sodium Lvl) 135 135-145 [place] [address]-07-17 08:33:00 Test Item Value Reference Range Interpretation Comments Potassium Lvl (test code = Potassium 4.3 3.5-5.1 Lvl) [place] [address]-07-17 08:33:00 Test Item Value Reference Range Interpretation Comments Chloride Lvl (test code = Chloride Lvl) 100 95-109 [place] 445053-07-17 08:33:00 Test Item Value Reference Range Interpretation Comments CO2 (test code = CO2) 30 24-32 [place] 445053-07-17 08:33:00 Test Item Value Reference Range Interpretation Comments Calcium Lvl (test code = Calcium Lvl) 9.2 8.5-10.5 [place] 445053-07-17 08:33:00 Test Item Value Reference Range Interpretation Comments AGAP (test code = AGAP) 9.3 10.0-20.0 [place] [address]-07-17 08:33:00 Test Item Value Reference Range Interpretation Comments eGFR (test code = eGFR) 93 [place] 407083-07-17 08:33:00 Test Item Value Reference Range Interpretation Comments Glucose Lvl (test code = Glucose Lvl) 99 70-99 [place] 407083-07-17 08:33:00 Test Item Value Reference Range Interpretation Comments BUN (test code = BUN) 20 7-22 [facility]yotmfwPJGUGAGLJ4809-73-23 08:33:00 Test Item Value Reference Range Interpretation Comments Creatinine Lvl (test code = Creatinine 0.62 0.50-1.40 Lvl) [facility] CenterUykxbngPXCBJZKWZ7800-58-98 08:33:00 Test Item Value Reference Range Interpretation Comments Sodium Lvl (test code = Sodium Lvl) 135 135-145 [place] 445053-07-16 09:32:00 Test Item Value Reference Range Interpretation Comments Glucose Lvl (test code = Glucose Lvl) 97 70-99 [facility]2023-07-16 09:32:00 Test Item Value Reference Range Interpretation Comments BUN (test code = BUN) 21 7- [place] 445053-07-16 09:32:00 Test Item Value Reference Range Interpretation Comments Creatinine Lvl (test code = Creatinine 0.62 0.50-1.40 Lvl) [place] 445053-07-16 09:32:00 Test Item Value Reference Range Interpretation Comments Sodium Lvl (test code = Sodium Lvl) 137 135-145 [place] 445053-07-16 09:32:00 Test Item Value Reference Range Interpretation Comments Potassium Lvl (test code = Potassium 4.5 3.5-5.1 Lvl) [place] 445053-07-16 09:32:00 Test Item Value Reference Range Interpretation Comments Chloride Lvl (test code = Chloride Lvl) 104 95-109 [place] 445053-07-16 09:32:00 Test Item Value Reference Range Interpretation Comments CO2 (test code = CO2) 27 24-32 [place] 445053-07-16 09:32:00 Test Item Value Reference Range Interpretation Comments Calcium Lvl (test code = Calcium Lvl) 8.7 8.5-10.5 [place] 445053-07-16 09:32:00 Test Item Value Reference Range Interpretation Comments AGAP (test code = AGAP) 10.5 10.0-20.0 [place] 445053-07-16 09:32:00 Test Item Value Reference Range Interpretation Comments eGFR (test code = eGFR) 94 [facility] PasoUzometfORKPSMFINW6196-36-94 09:32:00 Test Item Value Reference Range Interpretation Comments WBC (test code = WBC) 4.9 3.7-10.4 [place] [address]-07-16 09:32:00 Test Item Value Reference Range Interpretation Comments RBC (test code = RBC) 2.79 4.20-5.40 [place] [address]-07-16 09:32:00 Test Item Value Reference Range Interpretation Comments Hgb (test code = Hgb) 8.1 12.0-16.0 [place] [address]-07-16 09:32:00 Test Item Value Reference Range Interpretation Comments Hct (test code = Hct) 24.8 36.0-48.0 [place] [address]-07-16 09:32:00 Test Item Value Reference Range Interpretation Comments MCV (test code = MCV) 89.1 80.0-98.0 [place] [address]-07-16 09:32:00 Test Item Value Reference Range Interpretation Comments MCH (test code = MCH) 29.1 pg 27.0-31.0 [place] [address]-07-16 09:32:00 Test Item Value Reference Range Interpretation Comments MCHC (test code = MCHC) 32.7 32.0-36.0 [place] [address]-07-16 09:32:00 Test Item Value Reference Range Interpretation Comments RDW (test code = RDW) 14.7 11.5-14.5 [place] [address]-07-16 09:32:00 Test Item Value Reference Range Interpretation Comments Platelet (test code = Platelet) 207 133-450 [place] [address]-07-16 09:32:00 Test Item Value Reference Range Interpretation Comments MPV (test code = MPV) 7.9 7.4-10.4 [place] [address]-07-16 09:32:00 Test Item Value Reference Range Interpretation Comments Segs (test code = Segs) 70.2 45.0-75.0 [place] [address]-07-16 09:32:00 Test Item Value Reference Range Interpretation Comments Lymphocytes (test code = Lymphocytes) 14.6 20.0-40.[address]07-16 09:32:00 Test Item Value Reference Range Interpretation Comments Monocytes (test code = Monocytes) 11.9 2.0-12.0 [place] [address]-07-16 09:32:00 Test Item Value Reference Range Interpretation Comments Eosinophils (test code = Eosinophils) 2.5 <=4.0 [place] [address]-07-16 09:32:00 Test Item Value Reference Range Interpretation Comments Basophils (test code = Basophils) 0.8 <=1.0 [place] [address]-07-16 09:32:00 Test Item Value Reference Range Interpretation Comments Neutrophils # (test code = Neutrophils 3.4 1.5-8.1 #) [address]07-16 09:32:00 Test Item Value Reference Range Interpretation Comments Lymphocytes # (test code = Lymphocytes 0.7 1.0-5.5 #) [place] [address]-07-16 09:32:00 Test Item Value Reference Range Interpretation Comments Monocytes # (test code = Monocytes #) 0.6 <=0.8 [place] [address]-07-16 09:32:00 Test Item Value Reference Range Interpretation Comments Eosinophils # (test code = Eosinophils 0.1 <=0.5 #) [address]07-16 09:32:00 Test Item Value Reference Range Interpretation Comments Eosinophils # (test code = Eosinophils 0.1 <=0.5 #) [place] [address]-07-15 08:40:00 Test Item Value Reference Range Interpretation Comments Glucose Lvl (test code = Glucose Lvl) 92 70-99 [place] 445053-07-15 08:40:00 Test Item Value Reference Range Interpretation Comments BUN (test code = BUN) 24 7-22 [place] [address]-07-15 08:40:00 Test Item Value Reference Range Interpretation Comments Creatinine Lvl (test code = Creatinine 0.59 0.50-1.40 Lvl) [place] [address]-07-15 08:40:00 Test Item Value Reference Range Interpretation Comments Sodium Lvl (test code = Sodium Lvl) 139 135-145 [place] [address]-07-15 08:40:00 Test Item Value Reference Range Interpretation Comments Potassium Lvl (test code = Potassium 4.3 3.5-5.1 Lvl) [place] [address]-07-15 08:40:00 Test Item Value Reference Range Interpretation Comments Chloride Lvl (test code = Chloride Lvl) 108 95-109 [place] [address]-07-15 08:40:00 Test Item Value Reference Range Interpretation Comments CO2 (test code = CO2) 28 24-32 [place] [address]-07-15 08:40:00 Test Item Value Reference Range Interpretation Comments AGAP (test code = AGAP) 7.3 10.0-20.[address]07-15 08:40:00 Test Item Value Reference Range Interpretation Comments Calcium Lvl (test code = Calcium Lvl) 8.7 8.5-10.5 [place] [address]-07-15 08:40:00 Test Item Value Reference Range Interpretation Comments eGFR (test code = eGFR) 94 [place] 583923-07-15 08:40:00 Test Item Value Reference Range Interpretation Comments Segs (test code = Segs) 67.2 45.0-75.0 [place] [address]-07-15 08:40:00 Test Item Value Reference Range Interpretation Comments Lymphocytes (test code = Lymphocytes) 18.0 20.0-40.0 [place] [address]-07-15 08:40:00 Test Item Value Reference Range Interpretation Comments Monocytes (test code = Monocytes) 10.3 2.0-12.0 [place] [address]-07-15 08:40:00 Test Item Value Reference Range Interpretation Comments Eosinophils (test code = Eosinophils) 3.7 <=4.0 [place] [address]-07-15 08:40:00 Test Item Value Reference Range Interpretation Comments Basophils (test code = Basophils) 0.8 <=1.0 [place] [address]-07-15 08:40:00 Test Item Value Reference Range Interpretation Comments Neutrophils # (test code = Neutrophils 3.0 1.5-8.1 #) [place] [address]-07-15 08:40:00 Test Item Value Reference Range Interpretation Comments Lymphocytes # (test code = Lymphocytes 0.8 1.0-5.5 #) [place] [address]-07-15 08:40:00 Test Item Value Reference Range Interpretation Comments Monocytes # (test code = Monocytes #) 0.5 <=0.8 [place] 583923-07-15 08:40:00 Test Item Value Reference Range Interpretation Comments Eosinophils # (test code = Eosinophils 0.2 <=0.5 #) [facility] PasoJyouvdbNSDWULXKUI0057-20-56 08:40:00 Test Item Value Reference Range Interpretation Comments Sed Rate (test code = Sed Rate) 81 <=20 [place] 583923-07-15 08:40:00 Test Item Value Reference Range Interpretation Comments WBC (test code = WBC) 4.5 3.7-10.4 [place] 583923-07-15 08:40:00 Test Item Value Reference Range Interpretation Comments RBC (test code = RBC) 3.07 4.20-5.40 [place] 583923-07-15 08:40:00 Test Item Value Reference Range Interpretation Comments Hgb (test code = Hgb) 9.0 12.0-16.0 [facility] PasoFvnwtwqRNWPOZKNQH9676-01-92 08:40:00 Test Item Value Reference Range Interpretation Comments Hct (test code = Hct) 27.2 36.0-48.0 [facility] PasoSiakgnqILSNFKKWCL1026-74-31 08:40:00 Test Item Value Reference Range Interpretation Comments MCV (test code = MCV) 88.5 80.0-98.0 [place] 583923-07-15 08:40:00 Test Item Value Reference Range Interpretation Comments MCH (test code = MCH) 29.2 pg 27.0-31.0 [facility] PasoLzzjfwtDSQTNSQMXH8492-87-84 08:40:00 Test Item Value Reference Range Interpretation Comments MCHC (test code = MCHC) 33.0 32.0-36.0 [facility] PasoUvviopoPJYKNWZIGC9513-72-13 08:40:00 Test Item Value Reference Range Interpretation Comments RDW (test code = RDW) 15.2 11.5-14.5 [facility] PasoFxxfrarSXKIZYFJQE3259-68-29 08:40:00 Test Item Value Reference Range Interpretation Comments Platelet (test code = Platelet) 176 133-450 [facility] PasoNrqkcxjZREOMSBTOD4719-45-95 08:40:00 Test Item Value Reference Range Interpretation Comments MPV (test code = MPV) 7.6 7.4-10.4 [facility] PasoBwbrrtlKILFDKKATK5311-61-92 08:40:00 Test Item Value Reference Range Interpretation Comments Sed Rate (test code = Sed Rate) 81 <=20 [facility]2023-07-15 03:41:00 Test Item Value Reference Range Interpretation Comments Folate Lvl (test code = Folate Lvl) 9.5 [facility]2023-07-15 03:41:00 Test Item Value Reference Range Interpretation Comments Vitamin B12 Lvl (test code = Vitamin 427 B12 Lvl) [facility]PhfqkpqUVSLPDELV8364-75-99 03:41:00 Test Item Value Reference Range Interpretation Comments Folate Lvl (test code = Folate Lvl) 9.5 [facility] CenterJrcblwqBYMETRQRV1419-91-19 03:41:00 Test Item Value Reference Range Interpretation Comments Vitamin B12 Lvl (test code = Vitamin 888 978-1969 B12 Lvl) [facility]icsKfetkqmANDTNKNAAI1738-71-27 03:41:00 Test Item Value Reference Range Interpretation Comments ARIES (test code = ARIES) POSITIVE [place] [address]-07-15 03:41:00 Test Item Value Reference Range Interpretation Comments Treponemal Ab (test code Non-Reactive = Treponemal Ab) *NA*(03/24/23 10:41 PM) [place] [address]-07-15 03:41:00 Test Item Value Reference Range Interpretation Comments ARIES Titer (test code = ARIES Titer) 1:80 [place] [address]-07-15 03:41:00 Test Item Value Reference Range Interpretation Comments ARIES Pattern (test code = ARIES Cytoplasmic Pattern) [place] 432363-07-15 03:41:00 Test Item Value Reference Range Interpretation Comments DNA Ab (DS) (test code = DNA Ab (DS)) no gt [place] [address]-07-15 03:41:00 Test Item Value Reference Range Interpretation Comments Sm Ab (test code = Sm Ab) <1.0 NEG [place] [address]-07-15 03:41:00 Test Item Value Reference Range Interpretation Comments SM/FISCAL SERVICES DIRECTOR (test code = SM/FISCAL SERVICES DIRECTOR) <1.0 NEG [place] [address]-07-15 03:41:00 Test Item Value Reference Range Interpretation Comments FISCAL SERVICES DIRECTOR Ab (test code = FISCAL SERVICES DIRECTOR Ab) <1.0 NEG [place] [address]-07-15 03:41:00 Test Item Value Reference Range Interpretation Comments Antichromatin Ab (test code = <1.0 NEG Antichromatin Ab) [place] [address]-07-15 03:41:00 Test Item Value Reference Range Interpretation Comments SS-A (Ro) Ab (test code = SS-A (Ro) <1.0 NEG Ab) [place] [address]-07-15 03:41:00 Test Item Value Reference Range Interpretation Comments SS-B (La) Ab (test code = SS-B (La) <1.0 NEG Ab) [place] [address]-07-15 03:41:00 Test Item Value Reference Range Interpretation Comments SCL- 70 Ab (test code = SCL- 70 Ab) <1.0 NEG [place] [address]-07-15 03:41:00 Test Item Value Reference Range Interpretation Comments DANIELLE-1 Ab (test code = DANIELLE-1 Ab) <1.0 NEG [place] [address]-07-15 03:41:00 Test Item Value Reference Range Interpretation Comments Centromere B Ab (test code = <1.0 NEG Centromere B Ab) [place] [address]-07-15 03:41:00 Test Item Value Reference Range Interpretation Comments Ribosomal P Protein Antibody (test <1.0 NEG code = Ribosomal P Protein Antibody) [place] [address]-07-15 03:41:00 Test Item Value Reference Range Interpretation Comments ARIES Interp (test code = ARIES Interp) SEE NOTE [place] [address]-07-15 03:41:00 Test Item Value Reference Range Interpretation Comments ARIES (test code = ARIES) POSITIVE [place] [address]-07-15 03:41:00 Test Item Value Reference Range Interpretation Comments Treponemal Ab (test code Non-Reactive = Treponemal Ab) *NA*(03/24/23 10:41 PM) [place] [address]-07-15 03:41:00 Test Item Value Reference Range Interpretation Comments ARIES Titer (test code = ARIES Titer) 1:80 [place] [address]-07-15 03:41:00 Test Item Value Reference Range Interpretation Comments ARIES Pattern (test code = ARIES Cytoplasmic Pattern) [place] [address]-07-15 03:41:00 Test Item Value Reference Range Interpretation Comments DNA Ab (DS) (test code = DNA Ab (DS)) no gt [facility]icsRdgxtfqMFCXSIRYUI7859-63-83 03:41:00 Test Item Value Reference Range Interpretation Comments Sm Ab (test code = Sm Ab) <1.0 NEG [place] 432363-07-15 03:41:00 Test Item Value Reference Range Interpretation Comments SM/FISCAL SERVICES DIRECTOR (test code = SM/FISCAL SERVICES DIRECTOR) <1.0 NEG [facility] CenterQfkijpeSJJOWQEDVR9555-38-97 03:41:00 Test Item Value Reference Range Interpretation Comments FISCAL SERVICES DIRECTOR Ab (test code = FISCAL SERVICES DIRECTOR Ab) <1.0 NEG [facility] CenterLbrmjekYLIGFWHGXQ7556-09-32 03:41:00 Test Item Value Reference Range Interpretation Comments Antichromatin Ab (test code = <1.0 NEG Antichromatin Ab) [facility]icsOynrrdsZDLGUHZMTI2370-12-13 03:41:00 Test Item Value Reference Range Interpretation Comments SS-A (Ro) Ab (test code = SS-A (Ro) <1.0 NEG Ab) [facility]icsVzcqujcQBXXGMUIIE1798-49-52 03:41:00 Test Item Value Reference Range Interpretation Comments SS-B (La) Ab (test code = SS-B (La) <1.0 NEG Ab) [facility]icsSnxwytnLKCCPRNYYR6334-62-73 03:41:00 Test Item Value Reference Range Interpretation Comments SCL- 70 Ab (test code = SCL- 70 Ab) <1.0 NEG [facility]icsSmjcpteUOKFTMEIEV2175-85-25 03:41:00 Test Item Value Reference Range Interpretation Comments DANIELLE-1 Ab (test code = DANIELLE-1 Ab) <1.0 NEG [facility]icsAitazrlPELZGHBBCP5758-78-18 03:41:00 Test Item Value Reference Range Interpretation Comments Centromere B Ab (test code = <1.0 NEG Centromere B Ab) [facility]icsKnveutwMTQDHZJYQP9008-41-27 03:41:00 Test Item Value Reference Range Interpretation Comments Ribosomal P Protein Antibody (test <1.0 NEG code = Ribosomal P Protein Antibody) [facility]icsUddjanlPHWHLBSAHU5244-47-71 03:41:00 Test Item Value Reference Range Interpretation Comments ARIES Interp (test code = ARIES Interp) SEE NOTE [facility]icsUybrlrkEUAKVFHQWM4485-23-78 23:11:00 Test Item Value Reference Range Interpretation Comments HIV Ag/Ab 4th Gen Negative 2*NA*(03/24/23 (test code = HIV 6:11 PM) Ag/Ab 4th Gen) [facility] CenterBnhikniTRDNKYZFQX5563-98-98 23:11:00 Test Item Value Reference Range Interpretation Comments C-REACTIVE PROTEIN (test code = 94.3 C-REACTIVE PROTEIN) [facility] CenterDrelobfCMEQEGSLFC3439-66-90 23:11:00 Test Item Value Reference Range Interpretation Comments HIV Ag/Ab 4th Gen Negative 3*NA*(03/24/23 (test code = HIV 6:11 PM) Ag/Ab 4th Gen) [facility] CenterBxbsawlRWMZPBYRXK3864-98-75 23:11:00 Test Item Value Reference Range Interpretation Comments C-REACTIVE PROTEIN (test code = 94.3 C-REACTIVE PROTEIN) [place] 407083-07-14 15:29:00 Test Item Value Reference Range Interpretation Comments T3 Free (test code = T3 Free) 1.42 2.18-3.98 [place] 583923-07-14 09:34:00 Test Item Value Reference Range Interpretation Comments Eosinophils # (test code = Eosinophils 0.1 <=0.5 #) [facility]2023-07-13 09:48:00 Test Item Value Reference Range Interpretation Comments Total Protein (test code = Total 5.9 6.4-8.4 Protein) [facility]2023-07-13 09:48:00 Test Item Value Reference Range Interpretation Comments Albumin Lvl (test code = Albumin Lvl) 2.6 3.5-5.0 [place] 445053-07-13 09:48:00 Test Item Value Reference Range Interpretation Comments ALT (test code = ALT) 32 <=65 [place] 445053-07-13 09:48:00 Test Item Value Reference Range Interpretation Comments AST (test code = AST) 46 <=37 [place] 445053-07-13 09:48:00 Test Item Value Reference Range Interpretation Comments Alk Phos (test code = Alk Phos) 98 39-136 [place] 445053-07-13 09:48:00 Test Item Value Reference Range Interpretation Comments Bili Total (test code = Bili Total) 0.5 0.2-1.3 [place] 445053-07-13 09:48:00 Test Item Value Reference Range Interpretation Comments B/C Ratio (test code = B/C Ratio) 30 1 6-25 [facility]annCHEM AGUUK8189-97-81 09:48:00 Test Item Value Reference Range Interpretation Comments Globulin (test code = Globulin) 3.3 2.7-4.2 [facility]annCHEM OYOBG8979-92-95 09:48:00 Test Item Value Reference Range Interpretation Comments A/G Ratio (test code = A/G Ratio) 0.8 1 0.7-1.6 [facility] HospitalOtzrgsfWUDNYSEYW8195-05-94 09:48:00 Test Item Value Reference Range Interpretation Comments Total Protein (test code = Total 5.9 6.4-8.4 Protein) [facility] CenterZjssmimYDLHLZKTY4588-92-77 09:48:00 Test Item Value Reference Range Interpretation Comments Albumin Lvl (test code = Albumin Lvl) 2.6 3.5-5.0 [facility] HospitalUrviqsuXHJFNOUYO7599-31-24 09:48:00 Test Item Value Reference Range Interpretation Comments ALT (test code = ALT) 32 <=65 [facility] HospitalMtvmoruLKALDJURP9831-23-72 09:48:00 Test Item Value Reference Range Interpretation Comments AST (test code = AST) 46 <=37 [facility] HospitalPvkigpmXLDCTMYWS9434-32-65 09:48:00 Test Item Value Reference Range Interpretation Comments Alk Phos (test code = Alk Phos) 98 39-136 [facility] CenterZyifcfkJMQFFBWZV9314-00-42 09:48:00 Test Item Value Reference Range Interpretation Comments Bili Total (test code = Bili Total) 0.5 0.2-1.3 [facility] CenterMpckryrWZGNICBFM9110-51-32 09:48:00 Test Item Value Reference Range Interpretation Comments B/C Ratio (test code = B/C Ratio) 30 1 6-25 [facility] HospitalNvvqghpRIMEHVTIB4287-40-48 09:48:00 Test Item Value Reference Range Interpretation Comments Globulin (test code = Globulin) 3.3 2.7-4.2 [facility] HospitalWvdsbxqUBTFCUWFO9069-84-40 09:48:00 Test Item Value Reference Range Interpretation Comments A/G Ratio (test code = A/G Ratio) 0.8 1 0.7-1.6 [facility]annCARDIAC GRWLDEC4371-54-86 04:40:00 Test Item Value Reference Range Interpretation Comments HS Troponin I (test code = HS Troponin 6 I) [facility] CenterQfinafbIFBZVVGUM3731-14-76 04:40:00 Test Item Value Reference Range Interpretation Comments HS Troponin I (test code = HS Troponin 6 I) [facility] GPZSPTE3232-50-81 23:23:00 Test Item Value Reference Range Interpretation Comments RBC product (test code Product available = RBC product) 6(03/22/23 6:23 PM) [facility] [id number] 23:23:00 Test Item Value Reference Range Interpretation Comments RBC product (test code Product available = RBC product) 5(03/22/23 6:23 PM) [facility] [employer] [id number] 10:22:00 Test Item Value Reference Range Interpretation Comments B/C Ratio (test code = B/C Ratio) 27 1 6-25 [facility] HospitalMobilio YAAQV2520-84-49 10:22:00 Test Item Value Reference Range Interpretation Comments Total Protein (test code = Total 5.7 6.4-8.4 Protein) [facility] GPNYI9163-36-36 10:22:00 Test Item Value Reference Range Interpretation Comments Albumin Lvl (test code = Albumin Lvl) 2.6 3.5-5.0 [facility] [employer] [id number] 10:22:00 Test Item Value Reference Range Interpretation Comments Globulin (test code = Globulin) 3.1 2.7-4.2 [facility] [employer] [id number] 10:22:00 Test Item Value Reference Range Interpretation Comments A/G Ratio (test code = A/G Ratio) 0.8 1 0.7-1.6 [facility] [employer] [id number] 10:22:00 Test Item Value Reference Range Interpretation Comments ALT (test code = ALT) 26 <=65 [facility] [employer] [id number] 10:22:00 Test Item Value Reference Range Interpretation Comments AST (test code = AST) 39 <=37 [facility] [employer] [id number] 10:22:00 Test Item Value Reference Range Interpretation Comments Alk Phos (test code = Alk Phos) 67 39-136 [facility] [employer] [id number] 10:22:00 Test Item Value Reference Range Interpretation Comments Bili Total (test code = Bili Total) 0.3 0.2-1.3 [facility] RKAHSVX7943-09-70 13:10:00 Test Item Value Reference Range Interpretation Comments RBC product (test code Product available = RBC product) (03/21/23 8:10 AM) [facility]2023-07-11 08:28:00 Test Item Value Reference Range Interpretation Comments B/C Ratio (test code = B/C Ratio) 26 1 6-25 [place] 445053-07-11 08:28:00 Test Item Value Reference Range Interpretation Comments Total Protein (test code = Total 5.8 6.4-8.4 Protein) [facility]2023-07-11 08:28:00 Test Item Value Reference Range Interpretation Comments Albumin Lvl (test code = Albumin Lvl) 2.9 3.5-5.0 [facility]2023-07-11 08:28:00 Test Item Value Reference Range Interpretation Comments Globulin (test code = Globulin) 2.9 2.7-4.2 [facility]2023-07-11 08:28:00 Test Item Value Reference Range Interpretation Comments A/G Ratio (test code = A/G Ratio) 1.0 1 0.7-1.6 [facility]2023-07-11 08:28:00 Test Item Value Reference Range Interpretation Comments ALT (test code = ALT) 17 <=65 [facility]2023-07-11 08:28:00 Test Item Value Reference Range Interpretation Comments AST (test code = AST) 15 <=37 [facility]2023-07-11 08:28:00 Test Item Value Reference Range Interpretation Comments Alk Phos (test code = Alk Phos) 56 39-136 [facility]2023-07-11 08:28:00 Test Item Value Reference Range Interpretation Comments Bili Total (test code = Bili Total) 0.8 0.2-1.3 [facility]XqckrkePJEXOPLUWI7174-87-30 08:28:00 Test Item Value Reference Range Interpretation Comments Basophils # (test code = Basophils #) 0.1 <=0.2 [place] 583923-07-11 08:28:00 Test Item Value Reference Range Interpretation Comments Basophils # (test code = Basophils #) 0.1 <=0.2 [facility] OMSYKCL7427-83-19 14:08:00 Test Item Value Reference Range Interpretation Comments RBC product (test code Product available = RBC product) (03/20/23 9:08 AM) [facility] CenterZforyivHTCNOOORA4783-41-86 13:41:00 Test Item Value Reference Range Interpretation Comments TSH (test code = TSH) 6.450 0.360-3.740 [facility] CenterPkifsdpUHOIDXQCN3660-92-03 13:41:00 Test Item Value Reference Range Interpretation Comments T4 Free (test code = T4 Free) 0.83 0.76-1.46 [facility] PasoAohrtobHFAOCIRFYC2112-46-86 13:41:00 Test Item Value Reference Range Interpretation Comments RBC Morph (test code = Normal (03/20/23 8:41 RBC Morph) AM) [facility] PasoSxjydwsMROBCGKRLQ3118-06-72 13:41:00 Test Item Value Reference Range Interpretation Comments Plt Morph (test code = Normal (03/20/23 8:41 Plt Morph) AM) [facility] PasoXpbeucuHNULIUOYPS4423-78-63 13:41:00 Test Item Value Reference Range Interpretation Comments RBC Morph (test code = Normal (03/20/23 8:41 RBC Morph) AM) [facility] PasoVugujslCLGNMLPCTK3451-43-35 13:41:00 Test Item Value Reference Range Interpretation Comments Plt Morph (test code = Normal (03/20/23 8:41 Plt Morph) AM) [facility]2023-07-10 10:50:00 Test Item Value Reference Range Interpretation Comments Glucose POC (test code = Glucose POC) 94 70-99 [facility]2023-07-09 21:04:00 Test Item Value Reference Range Interpretation Comments Vitamin D, 25-OH, Total (test code = 32 Vitamin D, 25-OH, Total) [facility] CenterBmrotbtWEETIBAQR2804-39-46 21:04:00 Test Item Value Reference Range Interpretation Comments Vitamin D, 25-OH, Total (test code = 32 30-100 Vitamin D, 25-OH, Total) [facility] CenterIqhjkfaPMMNNIQDS3891-55-29 21:04:00 Test Item Value Reference Range Interpretation Comments PTH Intact (test code = PTH Intact) 55.2 18.4-80.1 [facility] CenterPARATHYROID PUPUPGI8141-53-68 21:04:00 Test Item Value Reference Range Interpretation Comments PTH Intact (test code = PTH Intact) 55.2 18.4-80.1 [facility] HospitalUjfmkunALTXVW6696-43-69 17:25:57 Test Item Value Reference Range Interpretation [...] Matthew Curry MD On 03/19/2023 12:24:50; [id number] [facility] [employer] [id number] 15:53:00 Test Item Value Reference Range Interpretation Comments ABO/Rh (test code = ABO/Rh) A NEG POKKT TGPHDWX5258-18-67 15:53:00 Test Item Value Reference Range Interpretation Comments Antibody Scrn (test Positive 8(03/19/23 code = Antibody Scrn) 10:53 AM) POKKT LRXCAMN0512-03-05 15:53:00 Test Item Value Reference Range Interpretation Comments AB Int (test code = AB Int) Anti-D POKKT [id number] 15:53:00 Test Item Value Reference Range Interpretation Comments ABO/Rh (test code = ABO/Rh) A NEG POKKT UOFMGJD8662-17-11 15:53:00 Test Item Value Reference Range Interpretation Comments Antibody Scrn (test Positive 7(03/19/23 code = Antibody Scrn) 10:53 AM) POKKT LNPMPNF2737-60-25 15:53:00 Test Item Value Reference Range Interpretation Comments AB Int (test code = AB Int) Anti-D [employer]UqcjbcbUVJJXXHATI2082-95-95 15:52:00 Test Item Value Reference Range Interpretation Comments PT (test code = PT) 12.6 s 12.0-14.7 [facility] PasoBdlfwsiFMMWMIYCPE2439-78-87 15:52:00 Test Item Value Reference Range Interpretation Comments PTT (test code = PTT) 31.7 s 22.9-35.8 [facility] PasoPkiteriIMNAKPQOUY7859-80-52 15:52:00 Test Item Value Reference Range Interpretation Comments INR (test code = INR) 0.94 1 0.87-1.13 [facility] PasoCpdiiecSRSHQYUYWX4073-21-35 15:52:00 Test Item Value Reference Range Interpretation Comments PT (test code = PT) 12.6 s 12.0-14.7 [facility] PasoNamognpJTIPWEEJMA3872-99-87 15:52:00 Test Item Value Reference Range Interpretation Comments PTT (test code = PTT) 31.7 s 22.9-35.8 [facility] PasoXezkoeoRNCHPPASSQ0845-80-49 15:52:00 Test Item Value Reference Range Interpretation Comments INR (test code = INR) 0.94 1 0.87-1.13 [place] 09251023-07-09 15:47:07 Test Item Value Reference Range Interpretation [...] Nahum Butler MD On 03/19/2023 10:45:46; [id number] [facility] LancasterUdqqfmyGEVFVB6056-18-49 15:44:40 Test Item Value Reference Range Interpretation [...] Nahum Butler MD On 03/19/2023 10:44:04; [id number] [facility] CenterLzstfuaDCUHET9865-85-54 15:42:07 Test Item Value Reference Range Interpretation [...] left femur.Omer Almeida MD On 03/19/2023 10:40:51; [id number] [facility] CenterVnolosiRMMHHH7993-46-02 15:35:52 Test Item Value Reference Range Interpretation [...] left femur.Omer Almeida MD On 03/19/2023 10:34:32; [id number] [facility]2023-07-09 13:35:00 Test Item Value Reference Range Interpretation Comments Gluc POC Comment 1 (test code Notified RN/MD = Gluc POC Comment 1) [facility]2023-07-09 13:35:00 Test Item Value Reference Range Interpretation Comments Gluc POC Comment 2 (test code = Cleaned Meter Gluc POC Comment 2) [facility] W/PLT COUNT & AUTO [id number] 05:48:00 Test Item Value Reference Range Interpretation [...] (BEAKER) (test code = 2801) BASIC METABOLIC [id number] 05:45:00 Test Item Value Reference Range Interpretation [...] S NOT APPLICABLE FOR DIALYSIS PATIEN TS. In Home Nanny ID - WERNER GGPNASPUT2614-09-29 10:10:00 Test Item Value Reference Range Interpretation Comments FERRITIN (BEAKER) (test code = 55.09 ng/mL 5.00-275.00 361) In Home Nanny ID - KAREN WVITAMIN B12 AND JNUCRN4077-14-30 10:10:00 Test Item Value Reference Range Interpretation Comments VITAMIN B12 671 pg/mL 213-816 (BEAKER) (test code = 774) FOLATE (BEAKER) 10.50 ng/mL See_Comment [Automated message] (test code = 362) The system which generated this result transmitted ref erence range: >=7.00. The reference range was not used to interpr et this result as normal/abnormal . In Home Nanny ID - KAREN MARTINEZ, TIBC, % SAT. (WITHOUT FERRITIN)2021-04-08 09:39:00 Test Item Value Reference Range Interpretation Comments IRON (BEAKER) (test code = 547) 11.0 ug/dL 40.0-160.0 L TOTAL IRON BINDING CAPACITY 309 ug/dL 250-450 (BEAKER) (test code = 769) IRON % SATURATION (2) (BEAKER) 4 % 20-55 L (test code = 2590) In Home Nanny ID - KAREN WCBC W/PLT COUNT & AUTO YJXATBSEANLT9219-07-16 07:58:00 Test Item Value Reference Range Interpretation [...] (BEAKER) (test code = 2801) BASIC METABOLIC [id number] 05:49:00 Test Item Value Reference Range Interpretation [...] S NOT APPLICABLE FOR DIALYSIS PATIEN TS. In Home Nanny ID - BSCBC W/PLT COUNT & AUTO [id number] 05:21:00 Test Item Value Reference Range Interpretation [...] 2801) FL, FLUORO, NON-SPECIFIC, UP TO 1 [id number] 12:45:00Reason for exam:- >ORIF Tibial Plateau Right [facility]YA : 1950 Sex: FFluoroscopic unit utilized for a procedure performed in the OR. No interpretation was requested. Refer tothe operative report for findings. Refer to PACS for patient radiation dose information.BASIC METABOLIC [id number] 09:58:00 Test Item Value Reference Range Interpretation [...] S NOT APPLICABLE FOR DIALYSIS PATIEN TS. In Home Nanny ID - CANDIS PKCZOKDALUY8452-86-79 09:45:00 Test Item Value Reference Range Interpretation Comments HEMOGLOBIN (BEAKER) (test code = 6.1 GM/DL 11.2-15.7 L 410) In Home Nanny ID - 6000SARS-COV2/RT-PCR ([facility])2021-04-07 09:25:00 Test Item Value Reference Range Interpretation Comments SARS-COV2/RT-PCR Negative Negative The SARS-Co V-2 target (test code = 4851154) nuclei c acids are not detected in [...] Xpress SARS-CoV-2/Flu/RSV by their healthcareprovider. Results from [facility] Xpert Xpress SARS-CoV-2/Flu/RSV test should be correlated [...] of the Act.Fact Sheet for Healthcare Providers:https ://www.[employer].com/Documents/Xpert%20Xpress%20SARS%20CoV-2/Fact%20Sheets/302-390 2%24WQZT-VVN-6%20HEALTHCARE%20PROVIDERS%20FACT%20SHEET.pdfFact Sheet for Healthcare Patients:https://www.[employer]/Docum ents/Xpert%20Xpress%20SARS%20Cov-2/Fact%20Sheets/3023801%68WWUF-LHI-1%20PATIENT %20FACT%20SHEET.pdf
--- NOTE | 2023-06-21 03:20 | ER ---
Nurse's Notes [facility] Name: Sharmaine Amaya Age: 73 yrs Sex: Female : 1950 Arrival Date: 06/21/2023 Time: 03:02 Bed 13 Private MD: Diagnosis: Edema, unspecified;Weakness Presentation: 06/21 03:09 Chief complaint: EMS states: PD called reporting patient appeared dehydrated pt in no kl alexander distress. Coronavirus screen: Vaccine status: Patient reports being unvaccinated. Ebola Screen: Patient negative for fever greater than or equal to 101.5 degrees Fahrenheit, and additional compatible Ebola Virus Disease symptoms. Initial Sepsis Screen: Does the patient meet any 2 criteria? No. Patient's initial sepsis screen is negative. Does the patient have a suspected source of infection? No. Patient's initial sepsis screen is negative. Risk Assessment: Do you want to hurt yourself or someone else? Patient reports no desire to harm self or others. Onset of symptoms. 03:09 Method Of Arrival: Ambulatory kl 03:09 Acuity: YOKO 4 kl Triage Assessment: 03:11 General: Appears in no apparent distress. comfortable, Behavior is cooperative. Pain: kl Denies pain. Neuro: Level of Consciousness is awake, alert, obeys commands, Gait is steady, Speech is normal, Facial symmetry appears normal. Cardiovascular: No deficits noted. Respiratory: No deficits noted. GI: No deficits noted. No signs and/or symptoms were reported involving the gastrointestinal system. : No deficits noted. No signs and/or symptoms were reported regarding the genitourinary system. Derm: No deficits noted. No signs and/or symptoms reported regarding the dermatologic system. Musculoskeletal: No deficits noted. No signs and/or symptoms reported regarding the musculoskeletal system. Injury Description:. Historical: - Allergies: 03:10 BACITRACIN; kl 03:10 benzalkonium chloride; kl 03:10 Demerol; kl 03:10 Gramicidin D; kl 03:10 Iodinated Contrast Media - IV Dye; kl 03:10 Morphine; kl 03:10 Neomycin Sulfate; kl 03:10 Polymyxin B Sulfate; kl 03:10 triclosan; kl - PMHx: 03:10 Hallucinations; kl - Immunization history:: Adult Immunizations unknown. - Social history:: Smoking status: Reported history of juuling and/or vaping. - Family history:: not pertinent. Screenin:[address] [facility] ED Fall Risk Assessment (Adult) History of falling in the last 3 months, jw7 including since admission No falls in past 3 months (0 pts) Score/Fall Risk Level 0 - 2 = Low Risk Oriented to surroundings, Maintained a safe environment. Abuse screen: Denies threats or abuse. Denies injuries from another. Nutritional screening: No deficits noted. Tuberculosis screening: No symptoms or risk factors identified. Assessment: 04:03 Reassessment: Patient appears in no apparent distress at this time. Patient and/or family updated on plan of care and expected duration. Pain level reassessed. Vital Signs: 03:32 BP 159 / 86; Pulse 90; Resp 16 S; Temp 98.2(O); Pulse Ox 98% on R/A; jw7 04:04 BP 156 / 68; Pulse 84; Resp 18; Pulse Ox 96% on R/A; ED Course: 03:04 Patient arrived in ED. mesfin 03:04 Sabas Licona MD is Attending Physician. jessica 03:10 Triage completed. 03:31 Vi Muñiz, RN is Primary Nurse. jw7 03:31 Patient has correct armband on for positive identification. Bed in low position. Call jw7 light in reach. Side rails up X2. 03:31 Arm band placed on. jw7 03:31 No provider procedures requiring assistance completed. Patient did not have IV access jw7 during this emergency room visit. 04:03 No apparent distress. Resting quietly. Appears to be sleeping. Administered Medications: No medications were administered Medication: 03:31 VIS not applicable for this client. jw7 Outcome: 03:20 Discharge ordered by . jessica 04:03 Discharged to home ambulatory, 04:03 Condition: stable 04:03 Discharge instructions given to patient, Instructed on discharge instructions, Demonstrated understanding of instructions, 04:05 Patient left the ED. Signatures: Emily Cordero RN RN Sabas Phillip MD MD cha Waits, Jodi, RN RN jwMarcelina
--- NOTE | 2023-06-21 03:20 | EDPHYS ---
Physician Documentation [facility] Name: Sharmaine Amaya Age: 73 yrs Sex: Female : 1950 Arrival Date: 06/21/2023 Time: 03:02 Bed 13 Private MD: ED Physician Sabas Licona HPI: 06/21 03:13 This 73 yrs old Female presents to ER via Ambulatory with complaints of got jessica scared, le swelling. 03:13 The patient presents with swelling. The complaints affect the right leg and left leg. jessica Context: The problem was sustained at an unknown site. Onset: The symptoms/episode began/occurred just prior to arrival. Modifying factors: The symptoms are alleviated by nothing. the symptoms are aggravated by nothing. Associated signs and symptoms: The patient has no apparent associated signs or symptoms. got scare vat home, walking in the rain. Treatment prior to arrival includes: no previous treatment. Severity of symptoms: At their worst the symptoms were mild in the emergency department the symptoms are unchanged. Historical: - Allergies: 03:10 BACITRACIN; kl 03:10 benzalkonium chloride; kl 03:10 Demerol; kl 03:10 Gramicidin D; kl 03:10 Iodinated Contrast Media - IV Dye; kl 03:10 Morphine; kl 03:10 Neomycin Sulfate; kl 03:10 Polymyxin B Sulfate; kl 03:10 triclosan; kl - PMHx: 03:10 Hallucinations; kl - Immunization history:: Adult Immunizations unknown. - Social history:: Smoking status: Reported history of juuling and/or vaping. - Family history:: not pertinent. ROS: 03:13 Constitutional: Negative for fever, chills, and weight loss, Eyes: Negative for injury, jessica pain, redness, and discharge, ENT: Negative for injury, pain, and discharge, Neck: Negative for injury, pain, and swelling, Cardiovascular: Negative for chest pain, palpitations, and edema, Respiratory: Negative for shortness of breath, cough, wheezing, and pleuritic chest pain, Abdomen/GI: Negative for abdominal pain, nausea, vomiting, diarrhea, and constipation, Back: Negative for injury and pain, : Negative for injury, bleeding, discharge, and swelling, Skin: Negative for injury, rash, and discoloration, Neuro: Negative for headache, weakness, numbness, tingling, and seizure, Psych: Negative for depression, anxiety, suicide ideation, homicidal ideation, and hallucinations, Allergy/Immunology: Negative for hives, rash, and allergies, Endocrine: Negative for neck swelling, polydipsia, polyuria, polyphagia, and marked weight changes, Hematologic/Lymphatic: Negative for swollen nodes, abnormal bleeding, and unusual bruising, 03:13 MS/extremity: Positive for swelling, warmth, of the right leg and left leg, Exam: 03:13 Constitutional: This is a well developed, well nourished patient who is awake, alert, jessica and in no acute distress. Head/Face: Normocephalic, atraumatic. Eyes: Pupils equal round and reactive to light, extra-ocular motions intact. Lids and lashes normal. Conjunctiva and sclera are non-icteric and not injected. Cornea within normal limits. Periorbital areas with no swelling, redness, or edema. ENT: Nares patent. No nasal discharge, no septal abnormalities noted. Tympanic membranes are normal and external auditory canals are clear. Oropharynx with no redness, swelling, or masses, exudates, or evidence of obstruction, uvula midline. Mucous membranes moist. Neck: Trachea midline, no thyromegaly or masses palpated, and no cervical lymphadenopathy. Supple, full range of motion without nuchal rigidity, or vertebral point tenderness. No Meningismus. Chest/axilla: Normal chest wall appearance and motion. Nontender with no deformity. No lesions are appreciated. Cardiovascular: Regular rate and rhythm with a normal S1 and S2. No gallops, murmurs, or rubs. Normal PMI, no JVD. No pulse deficits. Respiratory: Lungs have equal breath sounds bilaterally, clear to auscultation and percussion. No rales, rhonchi or wheezes noted. No increased work of breathing, no retractions or nasal flaring. Abdomen/GI: Soft, non-tender, with normal bowel sounds. No distension or tympany. No guarding or rebound. No evidence of tenderness throughout. Back: No spinal tenderness. No costovertebral tenderness. Full range of motion. Female : Normal external genitalia. Skin: Warm, dry with normal turgor. Normal color with no rashes, no lesions, and no evidence of cellulitis. Neuro: Awake and alert, GCS 15, oriented to person, place, time, and situation. Cranial nerves II-XII grossly intact. Motor strength 5/5 in all extremities. Sensory grossly intact. Cerebellar exam normal. Normal gait. Psych: Awake, alert, with orientation to person, place and time. Behavior, mood, and affect are within normal limits. 03:13 Musculoskeletal/extremity: Extremities: all appear grossly normal, with no appreciated pain with palpation, ROM: intact in all extremities, full active range of motion, full passive range of motion, Circulation is intact in all extremities. Sensation intact. Compartment Syndrome exam of affected extremity: is normal. DVT Exam: no pain, no tenderness, negative Homans' sign noted on exam, no appreciated bluish discoloration, no erythema, no increased warmth, swelling, Vital Signs: 03:32 BP 159 / 86; Pulse 90; Resp 16 S; Temp 98.2(O); Pulse Ox 98% on R/A; jw7 04:04 BP 156 / 68; Pulse 84; Resp 18; Pulse Ox 96% on R/A; kl MDM: 03:04 Patient medically screened. jessica 03:18 Differential diagnosis: contusion. Differential Diagnosis altered mental status, jessica sepsis, flu. Data reviewed: vital signs, nurses notes, old medical records. Consideration of Admission/Observation Escalation of care including admission/observation considered. I considered the following discharge prescriptions or medication management in the emergency department Medications were administered in the Emergency Department. See MAR. Test considered but Not performed: Labs: no labs, no cp , no n/v, no abd pain. Administered Medications: No medications were administered Disposition Summary: 06/21/23 03:20 Discharge Ordered Notes: Location: Home jessica Problem: new jessica Symptoms: have improved jessica Condition: Stable jessica Diagnosis - Edema, unspecified jessica - Weakness jessica Followup: jessica - With: Private Physician - When: 2 - 3 days - Reason: Recheck today's complaints, Continuance of care, Re-evaluation by your physician Discharge Instructions: - Discharge Summary Sheet jessica - Edema jessica - Weakness jessica - Fatigue jessica - Edema, [id number] jessica - Weakness, [id number] jessica - Deconditioning jessica - Peripheral Edema jessica Forms: - Medication Reconciliation Form jessica - Thank You Letter jessica - Antibiotic Education jessica - Prescription Opioid Use jessica - Patient Portal Instructions jessica - Leadership Thank You Letter jessica Signatures: Emily Cordero RN RN Sabas Phillip MD MD cha
[2023-06-21 04:08] VITALS: TEMP 98.2
[2023-06-21 04:09] VITALS: BP 156/68; O2SAT 96
== END 2023-06-21 04:05 | disposition home or self-care (01) ==
LOC: ER 03:02
DX: R60.9 Edema, unspecified (principal); R53.1 Weakness; Z88.1 Allergy status to other antibiotic agents; Z88.3 Allergy status to other anti-infective agents; Z88.5 Allergy status to narcotic agent; Z88.8 Allergy status to other drugs, medicaments and biological substances; Z91.041 Radiographic dye allergy status

== ENCOUNTER 2023-08-09 07:53 | Emergency (ER) | payer OTHER ==
--- OUTSIDE RECORDS SUMMARY | 2023-08-09 08:08 | XMS REPORT | Continuity of Care Document ---
:1950 Author Organization [facility] t Address [address] [facility] [address] [place] [address] Care Team Providers Name Role Phone Asked, No Pcp Primary Care Physician Unavailable SHAHNAZ RODRIGUEZ Attending Clinician Unavailable Brice Carias DO Attending Clinician TONEY BOWERS Attending Clinician Unavailable Toney Bowers Attending Clinician ULICES GIL Attending Clinician Unavailable ARI WEBBER Attending Clinician Unavailable Noble Bonilla MD Attending Clinician Garrison FERANNDEZ, Yjadei T Attending Clinician Perico Lira MD Attending Clinician Dayo Martinez MD Attending Clinician Tiffany Giron MD Attending Clinician [phone] DAYO MARTINEZ Attending Clinician Unavailable NOBLE BONILLA Attending Clinician Unavailable SHAHNAZ RODRIGUEZ Admitting Clinician Unavailable DO BRICE CARIAS Admitting Clinician Unavailable GENO MERRITT Admitting Clinician Unavailable Geno Merritt Admitting Clinician Payers Payer Name Policy Type Policy Number Effective Date Expiration Date S ource [employer]NA MEDICARE [id number] 2019 ADVANTAGE PPO 00:00:00 HU[employer]NA FFS [id number] 2019 00:00:00 HU[employer]NA MEDICARE [id number] 2019 ADV 00:00:00 Problems Condition Condition Condition Status Onset Resolution Last Treating Co mments Source Name Details Category Date Date Treatment Clinician Date FALL FALL Diagnosis Active 2023-03-19 Mem oria Active 03-19 10:56:00 l 03/19/2023 00:00: Edward frankel [place] [id number] Hospital CLOSED CLOSED Diagnosis Active 2023-04-17 Me moria DISPLACED DISPLACED 03-19 21:48:00 l INTERTROCH INTERTROCH 00:00: He rmann ANTERIC ANTERIC 00 FRACT FRACT Active 03/19/2023 [facility] Displaced Displaced Disease Active [facility] lateral of lateral 00:00: Me dical condyle of condyle of 00 Ce nter right right tibia, tibia, initial initial encounter encounter for closed for closed fracture fracture Tibial Tibial Disease Active [facility] fracture fracture 00:[facility]: Medica l 00 Center Hypothyroi Hypothyro Problem Active 2023-04-14 Memoria dism idism 05:47:23 l (disorder) (disorder) He rmann Active Problem 04/14/2023 [facility] Schizophre Schizophr Problem Active 2023-04-14 Memoria kelly enia 05:47:23 l (disorder) (disorder) He rmann Active Problem 04/14/2023 [facility] DISPLACED DISPLACED Diagnosis Active 2023-04-17 Memoria INTERTROCH INTERTROCH 21:48:00 l ANTERIC ANTERIC [place] FRACTURE FRACTURE OF OF Active [facility] ESSENTIAL Diagnosis Active 2023-04-17 Memoria (PRIMARY) ESSENTIAL 21:48:00 l HYPERTENSI (PRIMARY) Her lopez ON HYPERTENSI ON Active [facility] 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 substance or known or known physiologi physiologi petr petr condition condition Allergies, Adverse Reactions, Alerts Allergy Allergy Status Severity Reaction(s) Onset Inactive Treating Comm ents Source Name Type Date Date Clinician Anali Edmond Active Hives Method i ne ty to 8-[facility] adverse 00:00: Hospita reaction 00 l s to drug Morphine Propensi Active Hives Method i ty to 8-19 st adverse 00:00: Hospita reaction 00 l [...] Propensi Active [facility] 2020-0 [facility] [place] [facility] adverse 00:00: Medical reaction 00 [place] [facility] Active Hives 2020-0 [facility] [...] Active Rash 2020-[address] [facility] ty to [facility] adverse 00:00: Medical reaction 00 Center s Other Propensi Active 2020-[address] [facility] ty to 7 use any [facility] adverse 00:00: "fancy" Medical reaction 00 cream; Center s okay with plain petrolium jellyCann ot have neosporin and polyspori n but bacitraci n is okay Poison Propensi Active Other (See [facility] to Comments) [facility] Extract adverse 00:00: Medical reaction 00 Center s IODINE Allergy Active High Hives [facility] Center SHRIMP Allergy Active High Hives [facility] Center TRICLOSA Allergy Active High Hives [facility] Medical [facility] Center OTHER Allergy Active [facility] Center POISON Allergy Active Other [facility] EXTRACT 00:00: Medical 00 Center MEPERIDI Allergy Active Low Itching [facility] Medical [facility] Center MORPHINE Allergy Active Low Rash [facility] morphine morphine Active Memori a l [place] Demerol Demerol Active Memoria l [place] Other Other Active Memoria Food Food l Allergy< Allergy< Edward n sup>1</s sup>1</s up> up> iodine iodine Active Memoria l Alce NO KNOWN Allergy Active [facility] Social History Social Habit Start Date Stop Date Quantity Comments Source Gender identity [facility] Sexual orientation [facility] History of Social 2023-04-30 2023-04-[address] function 00:00:00 00:00:00 Hospital Exposure to 2023-02-11 2023-02-21 Not sure [facility] SARS-CoV-2 (event) 00:00:00 05:50:00 Alcohol intake 2021-04-08 2021-04-08 Ex-drinker [facility] St Isreal es 00:00:00 00:00:00 (finding) Medical [place] Tobacco use and 2021-04-06 2021-04-[address] [facility] exposure 00:00:00 00:00:00 tobacco non-user [facility] Sex Assigned At [address] 00:00[facility]00 Medical Center Smoking Status Start Date Stop Date Source Tobacco smoking consumption unknown [facility] Tobacco smoking status [facility] [place] Medications Ordered Filled Start Stop Current Ordering Indication Dosage Frequency Signature Comments Components Source Medication Medication Date Date Medication? Clinician (SIG) Name Name gabapentin 2023-0 Yes 100 mg = 1 M emoria 100 mg oral 8-01 cap, PO, l capsule 18:29: Q8Hnow, # Cassandra nn 00 90 cap, 0 Refill(s), Pharmacy: [facility], 152.4, cm, 03/19/23 13:10:00 CDT, Height, 45.455, kg, 03/19/23 13:10:00 CDT, Weight gabapentin 2023-0 Yes 100 mg = 1 M emoria 100 mg oral 8-01 cap, PO, l capsule 18:29: Q8Hnow, # Cassandra nn 00 90 cap, 0 Refill(s), Pharmacy: [facility] 482, 152.4, cm, 03/19/23 13:10:00 CDT, Height, 45.455, kg, 03/19/23 13:10:00 CDT, Weight gabapentin 3-0 Yes 100 mg = 1 M emoria 100 mg oral 8-01 cap, PO, l capsule 18:29: Q8Hnow, # Cassandra nn 00 90 cap, 0 Refill(s), Pharmacy: [facility] 482, 152.4, cm, 03/19/23 13:10:00 CDT, Height, 45.455, kg, 03/19/23 13:10:00 CDT, Weight gabapentin 2023-0 Yes 100 mg = 1 M emoria 100 mg oral 8-01 cap, PO, l capsule 18:29: Q8Hnow, # Cassandra nn 00 90 cap, 0 Refill(s), Pharmacy: [facility] 482, 152.4, cm, 03/19/23 13:10:00 CDT, Height, 45.455, kg, 03/19/23 13:10:00 CDT, Weight gabapentin 2023-0 Yes 100 mg = 1 M emoria 100 mg oral 8-01 cap, PO, l capsule 18:29: Q8Hnow, # Cassandra nn 00 90 cap, 0 Refill(s), Pharmacy: [facility] 482, 152.4, cm, 03/19/23 13:10:00 CDT, Height, 45.455, kg, 03/19/23 13:10:00 CDT, Weight MiraLax Yes Notes: Memoria 7-18 Dissolve l 14:00: in 8 oz of [place] 00 water or juice. (Same as: Miralax) [...] 00 Equiv. to Rosie-Colac e. Senokot S Yes Notes: Memori a 7-18 (Same as l 02:00: Senokot-S) [place] 00 Equiv. to Rosie-Colac e. Senokot S 2022-0 Yes Notes: Memori a 7-18 (Same as l 02:00: Senokot-S) [place] 00 Equiv. to Rosie-Colac e. Senokot S 0 Yes Notes: Memori a 7-18 (Same as l 02:00: Senokot-S) [place] 00 Equiv. to Rosie-Colac e. Senokot S Yes Notes: Memori a 7-18 (Same as l 02:00: Senokot-S) Alec 00 Equiv. to Rosie-Colac e. calcium-vit Yes 1 tab, PO, Memoria woods D 500 7-17 BID, # 60 l mg-400 intl 22:07: tab, 2 Herm pema units oral 00 Refill(s), tablet Pharmacy: [facility], 152.4, cm, 03/19/23 13:10:00 CDT, Height, 45.455, kg, 03/19/23 13:10:00 CDT, Weight calcium-vit 2022-0 Yes 1 tab, PO, Memoria woods D 500 7-17 BID, # 60 l mg-400 intl 22:07: tab, 2 Herm pema units oral 00 Refill(s), tablet Pharmacy: [facility] 482, 152.4, cm, 03/19/23 13:10:00 CDT, Height, 45.455, kg, 03/19/23 13:10:00 CDT, Weight calcium-vit 2022-0 Yes 1 tab, PO, Memoria woods D 500 7-17 BID, # 60 l mg-400 intl 22:07: tab, 2 Herm pema units oral 00 Refill(s), tablet Pharmacy: [facility] 482, 152.4, cm, 03/19/23 13:10:00 CDT, Height, 45.455, kg, 03/19/23 13:10:00 CDT, Weight calcium-vit 2022-0 Yes 1 tab, PO, Memoria woods D 500 7-17 BID, # 60 l mg-400 intl 22:07: tab, 2 Herm pema units oral 00 Refill(s), tablet Pharmacy: [facility] 482, 152.4, cm, 03/19/23 13:10:00 CDT, Height, 45.455, kg, 03/19/23 13:10:00 CDT, Weight calcium-vit 2022-0 Yes 1 tab, PO, Memoria woods D 500 7-17 BID, # 60 l mg-400 intl 22:07: tab, 2 Herm pema units oral 00 Refill(s), tablet Pharmacy: [facility] 482, 152.4, cm, 03/19/23 13:10:00 CDT, Height, [...] nn 00 30 tab, 1 Refill(s), Pharmacy: [facility] 482, 152.4, cm, 03/19/23 13:10:00 CDT, Height, 45.455, kg, 03/19/23 13:10:00 CDT, Weight gabapentin 3-0 Yes 100 mg = 1 M emoria 100 mg oral 7-17 cap, PO, l capsule 22:05: Q8Hnow, 0 Cassandra nn 00 Refill(s) haloperidol 2023-0 Yes 5 mg = 1 Me moria 5 mg oral 7-17 tab, PO, l tablet 22:05: Bedtime, # Cassandra nn 00 30 tab, 1 Refill(s), Pharmacy: [facility] 482, 152.4, cm, 03/19/23 13:10:00 CDT, Height, 45.455, kg, 03/19/23 13:10:00 CDT, Weight gabapentin 3-0 Yes 100 mg = 1 M emoria 100 mg oral 7-17 cap, PO, l capsule 22:05: Q8Hnow, 0 Cassandra nn 00 Refill(s) haloperidol 2023-0 Yes 5 mg = 1 Me moria 5 mg oral 7-17 tab, PO, l tablet 22:05: Bedtime, # Cassandra nn 00 30 tab, 1 Refill(s), Pharmacy: [facility] 482, 152.4, cm, 03/19/23 13:10:00 CDT, Height, 45.455, kg, 03/19/23 13:10:00 CDT, Weight gabapentin 2023-0 Yes 100 mg = 1 M emoria 100 mg oral 7-17 cap, PO, l capsule 22:05: Q8Hnow, 0 Cassandra nn 00 Refill(s) haloperidol 2023-0 Yes 5 mg = 1 Me moria 5 mg oral 7-17 tab, PO, l tablet 22:05: Bedtime, # Cassandra nn 00 30 tab, 1 Refill(s), Pharmacy: [facility] 482, 152.4, cm, 03/19/23 13:10:00 [...] nn 00 30 tab, 1 Refill(s), Pharmacy: [facility] 482, 152.4, cm, 03/19/23 13:10:00 CDT, Height, 45.455, kg, 03/19/23 13:10:00 CDT, Weight levothyroxi 0 Yes 50 Memori a ne 50 mcg 7-17 microgram l (0.05 mg) 22:04: = 1 tab, Herm pema oral tablet 00 PO, Q630AM, # 30 tab, 2 Refill(s), Pharmacy: [facility] 482, 152.4, cm, 03/19/23 13:10:00 CDT, Height, 45.455, kg, 03/19/23 13:10:00 CDT, Weight aspirin 81 2022-0 Yes 81 mg = 1 Me moria mg tablet, 7-17 tab, PO, l enteric 22:04: Daily, # Edward n coated 00 30 tab, 2 Refill(s), Pharmacy: [facility] 482, 152.4, cm, 03/19/23 13:10:00 CDT, Height, 45.455, kg, 03/19/23 13:10:00 CDT, Weight levothyroxi 0 Yes 50 Memori a ne 50 mcg 7-17 microgram l (0.05 mg) 22:04: = 1 tab, Herm pema oral tablet 00 PO, Q630AM, # 30 tab, 2 Refill(s), Pharmacy: [facility] 482, 152.4, cm, 03/19/23 13:10:00 CDT, Height, 45.455, kg, 03/19/23 13:10:00 CDT, Weight aspirin 81 2022-0 Yes 81 mg = 1 Me moria mg tablet, 7-17 tab, PO, l enteric 22:04: Daily, # Edward n coated 00 30 tab, 2 Refill(s), Pharmacy: [facility] 482, 152.4, cm, 03/19/23 13:10:00 CDT, Height, 45.455, kg, 03/19/23 13:10:00 CDT, Weight levothyroxi 2023-0 Yes 50 Memori a ne 50 mcg 7-17 microgram l (0.05 mg) 22:04: = 1 tab, Herm pema oral tablet 00 PO, Q630AM, # 30 tab, 2 Refill(s), Pharmacy: [facility] 482, 152.4, cm, 03/19/23 13:10:00 CDT, Height, 45.455, kg, 03/19/23 13:10:00 CDT, Weight aspirin 81 2023-0 Yes 81 mg = 1 Me moria mg tablet, 7-17 tab, PO, l enteric 22:04: Daily, # Edward n coated 00 30 tab, 2 Refill(s), Pharmacy: [facility] 2, 152.4, cm, 03/19/23 13:10:00 CDT, Height, 45.455, kg, 03/19/23 13:10:00 CDT, Weight levothyroxi 2022-0 Yes 50 Memori a ne 50 mcg 7-17 microgram l (0.05 mg) 22:04: = 1 tab, Herm pema oral tablet 00 PO, Q630AM, # 30 tab, 2 Refill(s), Pharmacy: [facility] 482, 152.4, cm, 03/19/23 13:10:00 CDT, Height, 45.455, kg, 03/19/23 13:10:00 CDT, Weight aspirin 81 3-0 Yes 81 mg = 1 Me moria mg tablet, 7-17 tab, PO, l enteric 22:04: Daily, # Edward n coated 00 30 tab, 2 Refill(s), Pharmacy: [facility] 482, 152.4, cm, 03/19/23 13:10:00 CDT, Height, 45.455, kg, 03/19/23 13:10:00 CDT, Weight levothyroxi 2023-0 Yes 50 Memori a ne 50 mcg 7-17 microgram l (0.05 mg) 22:04: = 1 tab, Herm pema oral tablet 00 PO, Q630AM, # 30 tab, 2 Refill(s), Pharmacy: [facility] 482, 152.4, cm, 03/19/23 13:10:00 CDT, Height, 45.455, kg, 03/19/23 13:10:00 CDT, Weight aspirin 81 2022-0 Yes 81 mg = 1 Me moria mg tablet, 7-17 tab, PO, l enteric 22:04: Daily, # Edward n coated 00 30 tab, 2 Refill(s), Pharmacy: [facility] 482, 152.4, cm, 03/19/23 13:10:00 CDT, Height, 45.455, kg, 03/19/23 13:10:00 CDT, Weight lactulose Yes Notes: Memori a 10 g/15 mL 7-17 (Same l oral syrup 18:00: as:Chron ) lactulose Yes Notes: Memori a 10 g/15 mL 7-17 (Same l oral syrup 18:00: as:Chron ac) lactulose Yes Notes: Memori a 10 g/15 mL 7-17 (Same l oral syrup 18:00: as:Chron ac) lactulose Yes Notes: Memori a 10 g/15 mL 7-17 (Same l oral syrup 18:00: as:Chron ) lactulose Yes Notes: Memori a 10 g/15 mL 7-17 (Same l oral syrup 18:00: as:Chron ac) MiraLax No Notes: Memoria 7-17 Dissolve l 14:17: in 8 oz of water or juice. (Same as: Miralax) Dulcolax No Notes: Memoria Laxative 7-17 (Same As: l 14:17: Dulcolax, Bisco-Lax) Fleet Enema No 230 mL, Mem oria Extra 7-17 Route: HI, l 14:17: Drug Form: Alec 00 PRASHANT, Dosing Weight 45.455, kg, ONCE, Start date: 03/27/23 9:17:00 CDT, Stop date: 03/27/23 9:17:00 CDT, 0 MiraLax No Notes: Memoria 7-17 Dissolve l 14:17: in 8 oz of Alec 00 water or juice. (Same as: Miralax) Dulcolax No Notes: Memoria Laxative 7-17 (Same As: l 14:17: Dulcolax, [place] 00 Bisco-Lax) Fleet Enema No 230 mL, Mem oria Extra 7-17 Route: HI, l 14:17: Drug Form: [place] 00 PRASHANT, Dosing Weight 45.455, kg, ONCE, Start date: 03/27/23 9:17:00 CDT, Stop date: 03/27/23 9:17:00 CDT, 0 MiraLax No Notes: Memoria 7-17 Dissolve l 14:17: in 8 oz of [place] 00 water or juice. (Same as: Miralax) Dulcolax No Notes: Memoria Laxative 7-17 (Same As: l 14:17: Dulcolax, [place] 00 Bisco-Lax) Fleet Enema No 230 mL, Mem oria Extra 7-17 Route: HI, l 14:17: Drug Form: Alec 00 PRASHANT, [...] 230 mL, Mem oria Extra 7-17 Route: HI, l 14:17: Drug Form: [place] 00 PRASHANT, Dosing Weight 45.455, kg, ONCE, Start date: 03/27/23 9:17:00 CDT, Stop date: 03/27/23 9:17:00 CDT, 0 MiraLax 2022-0 No Notes: Memoria -17 Dissolve l 14:17: in 8 oz of [place] water or juice. (Same as: Miralax) Dulcolax 2022-0 No Notes: Memoria Laxative 03-27 (Same As: l 14:17: Dulcolax, [place] 00 Bisco-Lax) Fleet Enema 2022-0 No 230 mL, Mem oria Extra 17 Route: HI, l 14:17: Drug Form: [place] 00 PRASHANT, Dosing Weight 45.455, kg, ONCE, Start date: 03/27/23 9:17:00 CDT, Stop date: 03/27/23 9:17:00 CDT, 0 Fleet Enema 2022-0 No 133 mL, Mem oria Extra -16 Route: HI, l 23:02: Drug Form: Alec 00 PRASHANT, Dosing Weight 45.455, kg, ONCE, Start date: 03/26/23 18:02:00 CDT, Stop date: 03/26/23 18:02:00 CDT, 0 Fleet Enema 2022-0 No 133 mL, Mem oria Extra -16 Route: HI, l 23:02: Drug Form: Alec 00 PRASHANT, Dosing Weight 45.455, kg, ONCE, Start date: 03/26/23 18:02:00 CDT, Stop date: 03/26/23 18:02:00 CDT, 0 Fleet Enema 2022-0 No 133 mL, Mem oria Extra 7-16 Route: HI, l 23:02: Drug Form: [place] 00 PRASHANT, Dosing Weight 45.455, kg, ONCE, Start date: 03/26/23 18:02:00 CDT, Stop date: 03/26/23 18:02:00 CDT, 0 Fleet Enema 2022-0 No 133 mL, Mem oria Extra 7-16 Route: HI, l 23:02: Drug Form: [place] 00 PRASHANT, Dosing Weight 45.455, kg, ONCE, Start date: 03/26/23 18:02:00 CDT, Stop date: 03/26/23 18:02:00 CDT, 0 Fleet Enema No 133 mL, Mem oria Extra 16 Route: HI, l 23:02: Drug Form: [place] PRASHANT, Dosing Weight 45.455, kg, ONCE, Start date: 03/26/23 18:02:00 CDT, Stop date: 03/26/23 18:02:00 CDT, 0 aspirin Yes Notes: Do Memor ia 7-15 not crush l 14:00: or chew. [place] 00 (Same As: Ecotrin) aspirin Yes Notes: Do Memor ia 7-15 not crush l 14:00: or chew. [place] 00 (Same As: Ecotrin) aspirin Yes Notes: Do Memor ia 7-15 not crush l 14:00: or chew. [place] 00 (Same As: Ecotrin) aspirin Yes Notes: Do Memor ia 7-15 not crush l 14:00: or chew. Alec 00 (Same As: Ecotrin) aspirin Yes Notes: Do Memor ia 7-15 not crush l 14:00: or chew. [place] 00 (Same As: Ecotrin) Haldol Yes Notes: Memoria 7-15 (Same as: l 02:00: Haldol) Haldol Yes Notes: Memoria 7-15 (Same as: l 02:00: Haldol) Haldol Yes Notes: Memoria 7-15 (Same as: l 02:00: Haldol) Haldol Yes Notes: Memoria 7-15 (Same as: l 02:00: Haldol) Haldol Yes Notes: Memoria 7-15 (Same as: l 02:00: Haldol) NS (Bolus) No 1,000 mL, Me moria IV 14 1,000 l 22:43: ml/hr, Infuse Over: 1 hr, Route: IV, 1,000, Drug form: INJ, ONCE, Priority: STAT, Dosing Weight 45.455 kg, Start date: 03/24/23 17:43:00 CDT, Stop date: 03/24/23 17:43:00 CDT, 0 NS (Bolus) 0 No 1,000 mL, Me moria IV 7-14 1,000 l 22:43: ml/hr, [place] 00 Infuse Over: 1 hr, Route: IV, 1,000, Drug form: INJ, ONCE, Priority: STAT, Dosing Weight 45.455 kg, Start date: 03/24/23 17:43:00 CDT, Stop date: 03/24/23 17:43:00 CDT, 0 NS (Bolus) 0 No 1,000 mL, Me moria IV 7-14 1,000 l 22:43: ml/hr, Alec 00 Infuse Over: 1 hr, Route: IV, 1,000, Drug form: INJ, ONCE, Priority: STAT, Dosing Weight 45.455 kg, Start date: 03/24/23 17:43:00 CDT, Stop date: 03/24/23 17:43:00 CDT, 0 NS (Bolus) 0 No 1,000 mL, Me moria IV 7-14 1,000 l 22:43: ml/hr, Alec 00 Infuse Over: 1 hr, Route: IV, 1,000, Drug form: INJ, ONCE, Priority: STAT, Dosing Weight 45.455 kg, Start date: 03/24/23 17:43:00 CDT, Stop date: 03/24/23 17:43:00 CDT, 0 NS (Bolus) 0 No 1,000 mL, Me moria IV 7-14 1,000 l 22:43: ml/hr, Alec 00 Infuse Over: 1 hr, [...] ia 7-14 Give with l 12:51: food. [place] 00 (Same As: Coreg) carvedilol No Notes: Memor ia 7-14 Give with l 12:51: food. Alec 00 (Same As: Coreg) carvedilol No Notes: Memor ia 7-14 Give with l 12:51: food. Alec 00 (Same As: Coreg) carvedilol No Notes: Memor ia 7-14 Give with l 12:51: food. [place] 00 (Same As: Coreg) carvedilol No Notes: Memor ia 7-14 Give with l 12:51: food. Alec (Same As: Coreg) midodrine Yes Notes: Memori a 7-13 (Same l 20:53: as:Proamat [place] 00 ine) midodrine Yes Notes: Memori a 7-13 (Same l 20:53: as:Proamat Alec 00 ine) midodrine Yes Notes: Memori a 7-13 (Same l 20:53: as:Proamat Alec 00 ine) midodrine Yes Notes: Memori a 7-13 (Same l 20:53: as:Proamat [place] 00 ine) midodrine Yes Notes: Memori a 7-13 (Same l 20:53: as:Proamat [place] 00 ine) normal No 1,000 mL, Memori a saline 0.9% 7-13 1,000 l (Bolus) IV 17:32: ml/hr, Cassandra nn 00 Infuse Over: 1 hr, Route: IV, 1,000, Drug form: INJ, ONCE, Priority: STAT, Dosing Weight 45.455 kg, Start date: 03/23/23 12:32:00 CDT, Stop date: 03/23/23 12:32:00 CDT, 0 normal 2023-0 No 1,000 mL, Memori a saline 0.9% 7-13 1,000 l (Bolus) IV 17:32: ml/hr, Cassandra nn 00 Infuse Over: 1 hr, Route: IV, 1,000, Drug form: INJ, ONCE, Priority: STAT, Dosing Weight 45.455 kg, Start date: 03/23/23 12:32:00 CDT, Stop date: 03/23/23 12:32:00 CDT, 0 normal 2023-0 No 1,000 mL, Memori a saline 0.9% 7-13 1,000 l (Bolus) IV 17:32: ml/hr, Cassandra nn 00 Infuse Over: 1 hr, Route: IV, 1,000, Drug form: INJ, ONCE, Priority: STAT, Dosing Weight 45.455 kg, Start date: 03/23/23 12:32:00 CDT, Stop date: 03/23/23 12:32:00 CDT, 0 normal 2023-0 No 1,000 mL, Memori a saline 0.9% 7-13 1,000 l (Bolus) IV 17:32: ml/hr, Cassandra nn 00 Infuse Over: 1 hr, Route: IV, 1,000, Drug form: INJ, ONCE, Priority: STAT, Dosing Weight 45.455 kg, Start date: 03/23/23 12:32:00 CDT, Stop date: 03/23/23 12:32:00 CDT, 0 normal 2023-0 No 1,000 mL, Memori a saline 0.9% 7-13 1,000 l (Bolus) IV 17:32: ml/hr, Cassandra nn 00 Infuse Over: 1 hr, Route: IV, 1,000, Drug form: INJ, ONCE, Priority: STAT, Dosing Weight 45.455 kg, Start date: 03/23/23 12:32:00 CDT, Stop date: 03/23/23 12:32:00 CDT, 0 Sodium 2023-0 Yes 250 mL, Memoria Chloride 7-13 Rate: l 0.9% 01:01: Titrate [place] (titrate) 00 Dosing 250 mL Weight 45.455, kg, Route: IV, Total Volume: 250, Start Date: 03/22/23 20:01:00 CDT, Duration: 30 day, Stop date: 04/21/23 20:00:00 CDT, Replace Every: 24 hr, 0 Sodium 2023-0 Yes 250 mL, Memoria Chloride 7-13 Rate: l 0.9% 01:01: Titrate, [place] (titrate) 00 Dosing 250 mL Weight 45.455, [...] Memoria Chloride 7-13 Rate: l 0.9% 01:01: Titrate [place] (titrate) 00 Dosing 250 mL Weight 45.455, kg, Route: IV, Total Volume: 250, Start Date: 03/22/23 20:01:00 CDT, Duration: 30 day, Stop date: 04/21/23 20:00:00 CDT, Replace Every: 24 hr, 0 Sodium 2023-0 Yes 250 mL, Memoria Chloride 7-13 Rate: l 0.9% 01:01: Titrate, [place] (titrate) 00 Dosing 250 mL Weight 45.455, kg, Route: IV, Total Volume: 250, Start Date: 03/22/23 20:01:00 CDT, Duration: 30 day, Stop date: 04/21/23 20:00:00 CDT, Replace Every: 24 hr, 0 midodrine No Notes: Memori a 7-12 (Same l 23:25: as:Proamat [place] 00 ine) midodrine No Notes: Memori a 7-12 (Same l 23:25: as:Proamat [place] 00 ine) midodrine No Notes: Memori a 7-12 (Same l 23:25: as:Proamat [place] 00 ine) midodrine No Notes: Memori a 7-12 (Same l 23:25: as:Proamat Alec 00 ine) midodrine No Notes: Memori a 7-12 (Same l 23:25: as:Proamat [place] 00 ine) NS (Bolus) No 1,000 mL, Me moria IV 7-12 1,000 l 23:22: ml/hr, Alec 00 Infuse Over: 1 hr, Route: IV, 1,000, Drug form: INJ, ONCE, Priority: STAT, Dosing Weight 45.455 kg, Start date: 03/22/23 18:22:00 CDT, Stop date: 03/22/23 18:22:00 CDT, 0 NS (Bolus) No 1,000 mL, Me moria IV 7-12 1,000 l 23:22: ml/hr, Alec 00 Infuse Over: 1 hr, Route: IV, 1,000, Drug form: INJ, ONCE, Priority: STAT, Dosing Weight 45.455 kg, Start date: 03/22/23 18:22:00 CDT, Stop date: 03/22/23 18:22:00 CDT, 0 NS (Bolus) No 1,000 mL, Me moria IV 7-12 1,000 l 23:22: ml/hr, Alec 00 Infuse Over: 1 hr, Route: IV, 1,000, Drug form: INJ, ONCE, Priority: STAT, Dosing Weight 45.455 kg, Start date: 03/22/23 18:22:00 CDT, Stop date: 03/22/23 18:22:00 CDT, 0 NS (Bolus) No 1,000 mL, Me moria IV 7-12 1,000 l 23:22: ml/hr, Alec 00 Infuse Over: 1 hr, Route: IV, 1,000, Drug form: INJ, ONCE, Priority: STAT, Dosing Weight 45.455 kg, Start date: 03/22/23 18:22:00 CDT, Stop date: 03/22/23 18:22:00 CDT, 0 NS (Bolus) No 1,000 mL, Me moria IV 7-12 1,000 l 23:22: ml/hr, [place] 00 Infuse Over: 1 hr, Route: IV, 1,000, Drug form: INJ, ONCE, Priority: STAT, Dosing Weight 45.455 kg, Start date: 03/22/23 18:22:00 CDT, Stop date: 03/22/23 18:22:00 CDT, 0 Tylenol Yes Notes: Do Memor ia 7-12 not exceed l 17:06: 4 gm/day. (Same as: Tylenol) Tylenol Yes Notes: Do Memor ia 7-12 not exceed l 17:06: 4 gm/day. (Same as: Tylenol) Tylenol Yes Notes: Do Memor ia 7-12 not exceed l 17:06: 4 gm/day. (Same as: Tylenol) Tylenol Yes Notes: Do Memor ia 7-12 not exceed l 17:06: 4 gm/day. (Same as: Tylenol) Tylenol Yes Notes: Do Memor ia 7-12 not exceed l 17:06: 4 gm/day. (Same as: Tylenol) ceFAZolin No Notes: Memori a (SCIP) + 7-10 (Same As: l sterile 21:00: Ancef, [place] water 20 mL 00 Kefzol) MEDICATION WASTE Product Size: 1000 mg Product Wasted: ___ mg ceFAZolin No Notes: Memori a (SCIP) + 7-10 (Same As: l sterile 21:00: Ancef, [place] water 20 mL 00 Kefzol) MEDICATION WASTE Product Size: 1000 mg Product Wasted: ___ mg ceFAZolin No Notes: Memori a (SCIP) + 7-10 (Same As: l sterile 21:00: Ancef, [place] water 20 mL 00 Kefzol) MEDICATION WASTE Product Size: 1000 mg Product Wasted: ___ mg ceFAZolin No Notes: Memori a (SCIP) + 7-10 (Same As: l sterile 21:00: Ancef, [place] water 20 mL 00 Kefzol) MEDICATION WASTE Product Size: 1000 mg Product Wasted: ___ mg ceFAZolin No Notes: Memori a (SCIP) + 7-10 (Same As: l sterile 21:00: Ancef, [place] water 20 mL 00 Kefzol) MEDICATION WASTE Product Size: 1000 mg Product Wasted: ___ mg albumin No Notes: Nealoria human 5% 7-10 LOT#: l intravenous 14:07: [place] solution 00 ___Mfg:___ ___ (Same as: Albuminar) "blood product derivative " WASTE: F/P - Red; E -Red MEDICATION WASTE Product Size: 25 gm Product Wasted: _0__ gm albumin No Notes: Joy human 5% 7-10 LOT#: l intravenous 14:07: Alec solution ___Mfg:___ ___ (Same as: Albuminar) "blood product derivative " WASTE: F/P - Red; E -Red MEDICATION WASTE Product Size: 25 gm Product Wasted: _0__ gm albumin No Notes: Memoria human 5% 7-10 LOT#: l intravenous 14:07: [place] solution 00 ___Mfg:___ ___ (Same as: Albuminar) "blood product derivative " WASTE: F/P - Red; E -Red MEDICATION WASTE Product Size: 25 gm Product Wasted: _0__ gm albumin No Notes: Memoria human 5% 7-10 LOT#: l intravenous 14:07: Alec solution 00 ___Mfg:___ ___ (Same as: Albuminar) "blood product derivative " WASTE: F/P - Red; E -Red MEDICATION WASTE Product Size: 25 gm Product Wasted: _0__ gm albumin No Notes: Memoria human 5% 7-10 LOT#: l intravenous 14:07: [place] solution 00 ___Mfg:___ ___ (Same as: Albuminar) "blood product derivative " WASTE: F/P - Red; E -Red MEDICATION WASTE Product Size: 25 gm Product Wasted: _0__ gm levothyroxi Yes Notes: Alex ronald ne 7-10 Take 1 l 14:00: hour [place] 00 before or 2 hours after meal; Enteral feeds may interefere with the absorption of this medication .(Same as:Levothr oid, Synthroid) Norvasc No Notes: Memoria 7-10 (Same as: l 14:00: Norvasc) calcium Yes Notes: Memoria carbonate 7-10 500mg l 14:00: elemental [place] 00 calcium = 1250mg calcium carbonate. Contains [...] Memoria 7-10 (Same as: l 14:00: Norvasc) [place] 00 calcium Yes Notes: Memoria carbonate 7-10 500mg l 14:00: elemental [place] 00 calcium = 1250mg calcium carbonate. Contains 500mg elemental calcium. (Same As: OsCal 500) cholecalcif Yes Notes: Alex ronald sallie 7-10 Same as : l 14:00: Vitamin D3 Alec OLANZapine No Notes: Memor ia 7-10 (Same as: l 14:00: ZyPREXA) Alec levothyroxi Yes Notes: Alex ronald ne 7-10 Take 1 l 14:00: hour [place] 00 before or 2 hours after meal; Enteral feeds may interefere with the absorption of this medication .(Same as:Levothr oid, Synthroid) sertraline No Notes: Memor ia 7-10 (Same as: l 14:00: Zoloft) Alec 00 Norvasc No Notes: Memoria 7-10 (Same as: l 14:00: Norvasc) Alec 00 calcium Yes Notes: Memoria carbonate 7-10 500mg l 14:00: elemental Alec 00 calcium = 1250mg calcium carbonate. Contains 500mg elemental calcium. (Same As: OsCal 500) cholecalcif Yes Notes: Alex ronald sallei 7-10 Same as : l 14:00: Vitamin D3 [place] 00 OLANZapine No Notes: Memor ia 7-10 (Same as: l 14:00: ZyPREXA) [place] 00 sertraline No Notes: Memor ia 7-10 (Same as: l 14:00: Zoloft) [place] 00 levothyroxi Yes Notes: Alex ronald ne 7-10 Take 1 l 14:00: hour [place] 00 before or 2 hours after meal; Enteral feeds may interefere with the absorption of this medication .(Same as:Levothr oid, Synthroid) Norvasc No Notes: Memoria 7-10 (Same as: l 14:00: Norvasc) Alec 00 calcium Yes Notes: Memoria carbonate 7-10 500mg l 14:00: elemental [place] 00 calcium = 1250mg calcium carbonate. Contains [...] Memoria 7-10 (Same as: l 14:00: Norvasc) [place] 00 calcium Yes Notes: Memoria carbonate 7-10 500mg l 14:00: elemental [place] 00 calcium = 1250mg calcium carbonate. Contains [...] 7-10 Route: l INJ 13:51: IVP, Drug [place] 00 form: INJ, ONCE, Dosing Weight 45.455, [...] 7-10 Route: l INJ 13:35: IVP, Drug [place] 00 form: INJ, ONCE, Dosing Weight 45.455, [...] 7-10 Route: l INJ 13:10: IVP, Drug [place] 00 form: INJ, ONCE, Dosing Weight 45.455, kg, Start date: 03/20/23 8:10:00 CDT, Stop date: 03/20/23 8:10:00 CDT metoprolol 2023-0 No 2 mg, Memori a 5 mg/5 ml 7-10 Route: l INJ 13:10: IVP, Drug Alec 00 form: INJ, ONCE, Dosing Weight 45.455, kg, Start date: 03/20/23 8:10:00 CDT, Stop date: 03/20/23 8:10:00 CDT metoprolol 2023-0 No 2 mg, Memori a 5 mg/5 ml 7-10 Route: l INJ 13:10: IVP, Drug Alec 00 form: INJ, ONCE, [...] ONCE, Stop date: 03/20/23 7:39:00 CDT lidocaine No Route: IV, Me moria [...] 7-10 (Same as: l mg 12:36: Roxicodone Alec immediate 00 ) release tablet No Notes: Memoria HYDROmorpho 7-10 Same as: l ne 12:36: Dilaudid Alec No Notes: Memoria naloxone 7-10 Same as l 12:36: Narcan Alec No Notes: Memoria ondansetron 7-10 (Same as: l 12:36: Zofran) Alec 00 MEDICATION WASTE Product Size: 4 mg Product Wasted: ___ mg No Notes: Memoria oxyCODONE 5 7-10 (Same as: l mg 12:36: Roxicodone Alec immediate 00 ) release tablet No Notes: Memoria HYDROmorpho 7-10 Same as: l ne 12:36: Dilaudid [place] No Notes: Memoria naloxone 7-10 Same as l 12:36: Narcan [place] No Notes: Memoria ondansetron 7-10 (Same as: l 12:36: Zofran) [place] 00 MEDICATION WASTE Product Size: 4 mg Product Wasted: ___ mg No Notes: Memoria oxyCODONE 5 7-10 (Same as: l mg 12:36: Roxicodone [place] immediate ) release tablet No Notes: Memoria HYDROmorpho 7-10 Same as: l ne 12:36: Dilaudid Alec No Notes: Memoria naloxone 7-10 Same as l 12:36: Narcan Alec No Notes: Memoria ondansetron 7-10 (Same as: l 12:36: Zofran) Alec 00 MEDICATION WASTE Product Size: 4 mg Product Wasted: ___ mg No Notes: Memoria oxyCODONE 5 7-10 (Same as: l mg 12:36: Roxicodone Alec immediate 00 ) release tablet No Notes: Memoria HYDROmorpho 7-10 Same as: l ne 12:36: Dilaudid ANES No Notes: Memoria naloxone 7-10 Same as l 12:36: Narcan ANES No Notes: Memoria ondansetron 7-10 (Same as: [...] ONCE, Stop date: 03/20/23 7:29:00 CDT glycopyrrol 0 No Route: IV, Memoria ate (ANES) 7-10 Drug form: l 12:29: INJ, ONCE, Stop date: 03/20/23 7:29:00 CDT glycopyrrol 0 No Route: IV, Memoria ate (ANES) 7-10 Drug form: l 12:29: INJ, ONCE, Stop date: 03/20/23 7:29:00 CDT fentaNYL 2022-0 No Route: IV, Mem [...] ONCE, Stop date: 03/20/23 7:19:00 CDT fentaNYL 2023-0 No Route: IV, Mem oria (ANES) 7-10 Drug form: l 12:19: INJ, ONCE, Stop date: 03/20/23 7:19:00 CDT ceFAZolin No Route: IV, Me moria (ANES) 7-10 Drug form: l 12:19: INJ, ONCE, Stop date: 03/20/23 7:19:00 CDT ePHEDrine No Route: IV, Me moria (ANES) 7-10 Drug form: l 12:19: INJ, ONCE, Stop date: 03/20/23 7:19:00 CDT Lactated 0 No Route: IV, Mem oria Ringers 7-10 Total l Injection 11:30: Volume: Cassandra nn IV (ANES) 00 1,000, 1000 mL Start date: 03/20/23 6:30:00 CDT, Stop date: 03/20/23 7:30:00 CDT Lactated 0 No Route: IV, Mem oria Ringers 7-10 Total l Injection 11:30: Volume: Cassandra nn IV (ANES) 00 1,000, 1000 mL Start date: 03/20/23 6:30:00 CDT, Stop date: 03/20/23 7:30:00 CDT Lactated 0 No Route: IV, Mem oria Ringers 7-10 Total l Injection 11:30: Volume: Cassandra nn IV (ANES) 00 1,000, 1000 mL Start date: 03/20/23 6:30:00 CDT, Stop date: 03/20/23 7:30:00 CDT Lactated 0 No Route: IV, Mem oria Ringers 7-10 Total l Injection 11:30: Volume: Cassandra nn IV (ANES) 00 1,000, 1000 mL Start date: 03/20/23 6:30:00 CDT, Stop date: 03/20/23 7:30:00 CDT Lactated 0 No Route: IV, Mem oria Ringers 7-10 Total l Injection 11:30: Volume: Cassandra nn IV (ANES) 00 1,000, 1000 mL Start date: 03/20/23 6:30:00 CDT, Stop date: 03/20/23 7:30:00 CDT mirtazapine 0 No Notes: Alex ronald 7-10 (Same l 02:00: as:Remeron ) mirtazapine 0 No Notes: Alex ronald 7-10 (Same l 02:00: as:Remeron [place] 00 ) mirtazapine 0 No Notes: Alex ronald 7-10 (Same l 02:00: as:Remeron ) mirtazapine No Notes: Alex ronald 7-10 (Same l 02:00: as:Remeron Alec 00 ) mirtazapine No Notes: Alex ronald 7-10 (Same [...] Yes Notes: Memor ia 20 mg oral 7-09 (Same as: l tablet 22:00: Pepcid) docusate No 100 mg, 1 Alex ronald 7-09 cap, l 22:00: Route: PO, Drug form: CAP, BID, Dosing Weight 45.455, kg, Start date: 03/19/23 17:00:00 CDT, Duration: 30 day, Stop date: 04/18/23 9:00:00 CDT, 0 risperiDONE 2022-0 No Notes: Alex ronald 7-09 (Same as: l 22:00: Risperdal) famotidine 0 Yes Notes: Memor ia 20 mg oral 7-09 (Same as: l tablet 22:00: Pepcid) docusate No 100 mg, 1 Alex ronald 7-09 cap, l 22:00: Route: PO, Drug form: CAP, BID, Dosing Weight 45.455, kg, Start date: 03/19/23 17:00:00 CDT, Duration: 30 day, Stop date: 04/18/23 9:00:00 CDT, 0 risperiDONE 2022-0 No Notes: Alex ronald 7-09 (Same as: l 22:00: Risperdal) famotidine Yes Notes: Memor ia 20 mg oral 7-09 (Same as: l tablet 22:00: Pepcid) docusate No 100 mg, 1 Alex ronald 7-09 cap, l 22:00: Route: PO, Drug form: CAP, BID, Dosing Weight 45.455, kg, Start date: 03/19/23 17:00:00 CDT, Duration: 30 day, Stop date: 04/18/23 9:00:00 CDT, 0 risperiDONE 2022-0 No Notes: Alex ronald 7-09 (Same as: l 22:00: Risperdal) famotidine Yes Notes: Memor ia 20 mg oral 7-09 (Same as: l tablet 22:00: Pepcid) docusate No 100 mg, 1 Alex ronald 7-09 cap, l 22:00: Route: PO, Drug form: CAP, BID, Dosing Weight 45.455, kg, Start date: 03/19/23 17:00:00 CDT, Duration: 30 day, Stop date: 04/18/23 9:00:00 CDT, 0 risperiDONE 2022-0 No Notes: Alex ronald 7-09 (Same as: l 22:00: Risperdal) famotidine Yes Notes: Memor ia 20 mg oral 7-09 (Same as: l tablet 22:00: Pepcid) ceFAZolin + Yes Notes: Alex ronald sterile 7-09 (Same As: l water 20 mL 17:00: Ancef, Kefzol) MEDICATION WASTE Product Size: 1000 mg Product Wasted: 0___ mg enoxaparin 2023-0 Yes Notes: Memor ia 7-09 (Same as: l 17:00: Lovenox) [place] 00 ceFAZolin + 2023-0 Yes Notes: Alex ronald sterile 7- (Same As: l water 20 mL 17:00: Ancef, Herm pema 00 Kefzol) MEDICATION WASTE Product Size: 1000 mg Product Wasted: 0___ mg enoxaparin 2023-0 Yes Notes: Memor ia 7- (Same as: l 17:00: Lovenox) [place] 00 ceFAZolin + 2023-0 Yes Notes: Alex ronald sterile 7- (Same As: l water 20 mL 17:00: Ancef, Herm pema 00 Kefzol) MEDICATION WASTE Product Size: 1000 mg Product Wasted: 0___ mg enoxaparin 2023-0 Yes Notes: Memor ia 7- (Same as: l 17:00: Lovenox) Alec 00 ceFAZolin + 2023-0 Yes Notes: Alex ronald sterile 7- (Same As: l water 20 mL 17:00: Ancef, Herm pema 00 Kefzol) MEDICATION WASTE Product Size: 1000 mg Product Wasted: 0___ mg enoxaparin 2023-0 Yes Notes: Memor ia 7- (Same as: l 17:00: Lovenox) [place] 00 ceFAZolin + 2023-0 Yes Notes: Alex ronald sterile 7- (Same As: l water 20 mL 17:00: Ancef, Herm pema 00 Kefzol) MEDICATION WASTE Product Size: 1000 mg Product Wasted: 0___ mg enoxaparin 2023-0 Yes Notes: Memor ia 7- (Same as: l 17:00: Lovenox) [place] 00 hydrALAZINE 2023-0 Yes Notes: Alex ronald 7- (Same as: l 16:25: Apresoline [place] 00 ) hydrALAZINE 2023-0 Yes Notes: Alex ronald 7- (Same as: l 16:25: Apresoline [place] 00 ) hydrALAZINE 2023-0 Yes Notes: Alex ronald 7- (Same as: l 16:25: Apresoline Alec 00 ) hydrALAZINE Yes Notes: Alex ronald 7-09 (Same as: l 16:25: Apresoline [place] 00 ) hydrALAZINE Yes Notes: Alex ronald 7-09 (Same as: l 16:25: Apresoline Alec 00 ) oxyCODONE 5 No Notes: Alex ronald mg/5 mL 7-09 (Same as: l oral 16:22: 'Roxicodon Alec solution 00 e) bisacodyl No Notes: Memori a 7-09 (Same As: l 16:22: Dulcolax, [place] 00 Bisco-Lax) melatonin Yes Notes: Memori a 7-09 (Same as: l 16:22: Melatonin) [place] 00 oxyCODONE 5 No Notes: Alex ronald mg/5 mL 7-09 (Same as: l oral 16:22: 'Roxicodon Alec solution 00 e) bisacodyl No Notes: Memori a 7-09 (Same As: l 16:22: Dulcolax, [place] 00 Bisco-Lax) melatonin Yes Notes: Memori a 7-09 (Same as: l 16:22: Melatonin) [place] 00 oxyCODONE 5 No Notes: Alex ronald mg/5 mL 7-09 (Same as: l oral 16:22: 'Roxicodon Alec solution 00 e) bisacodyl No Notes: Memori a 7-09 (Same As: l 16:22: Dulcolax, [place] 00 B[place]-Lax) melatonin Yes Notes: Memori a 7-09 (Same as: l 16:22: Melatonin) Alec 00 oxyCODONE 5 No Notes: Alex ronald mg/5 mL 7-09 (Same as: l oral 16:22: 'Roxicodon Alec solution 00 e) bisacodyl No Notes: Memori a 7-09 (Same As: l 16:22: Dulcolax, Alec 00 [place]-Lax) melatonin Yes Notes: Memori a 7-09 (Same as: l 16:22: Melatonin) [place] 00 oxyCODONE 5 No Notes: Alex ronald mg/5 mL 03-19 (Same as: l oral 16:22: 'Roxicodon [place] solution 00 e) bisacodyl No Notes: Memori a 03-19 (Same As: l 16:22: Dulcolax, [place] 00 Bisco-Lax) melatonin Yes Notes: Memori a 03-19 (Same as: l 16:22: Melatonin) Alec 00 acetaminoph Yes Notes: Max Memoria en 7- acetaminop l 16:21: hen 4000 Alec 00 mg/day (4 gm/day). (Same as: Tylenol Extra Strength) gabapentin Yes Notes: Memor ia 7 (Same as: l 16:21: Neurontin) acetaminoph Yes Notes: Max Memoria en 7- acetaminop l 16:21: hen 4000 [place] 00 mg/day (4 gm/day). (Same as: Tylenol Extra Strength) gabapentin Yes Notes: Memor ia 7- (Same as: l 16:21: Neurontin) [place] 00 acetaminoph Yes Notes: Max Memoria en 7-09 acetaminop l 16:21: hen 4000 [place] 00 mg/day (4 gm/day). (Same as: Tylenol Extra Strength) acetaminoph Yes Notes: Max Memoria en 7-09 acetaminop l 16:21: hen 4000 Alec 00 mg/day (4 gm/day). (Same as: Tylenol Extra Strength) gabapentin Yes Notes: Memor ia 7- (Same as: l 16:21: Neurontin) Alec 00 gabapentin Yes Notes: Memor ia 7-09 (Same as: l 16:21: Neurontin) Alec acetaminoph Yes Notes: Max Memoria en 7-09 acetaminop l 16:21: hen 4000 Alec 00 mg/day (4 gm/day). (Same as: Tylenol Extra Strength) gabapentin Yes Notes: Memor ia 7- (Same as: l 16:21: Neurontin) [place] 00 mirtazapine 2023-0 No 7.5 mg = 1 Memoria 7.5 mg oral 7-09 tab, PO, l tablet 16:18: Bedtime, # Cassandra nn 00 30 tab, 0 Refill(s) levothyroxi 2023-0 No 25 Memori a ne 25 mcg 7-09 microgram l (0.025 mg) 16:18: = 1 tab, Her lopez oral tablet 00 PO, Daily, # 30 tab, 0 Refill(s) mirtazapine 2023-0 No 7.5 mg = 1 Memoria 7.5 mg oral 7-09 tab, PO, l tablet 16:18: Bedtime, # Cassandra nn 00 30 tab, 0 Refill(s) levothyroxi 2023-0 No 25 Memori a ne 25 mcg 7-09 microgram l (0.025 mg) 16:18: = 1 tab, Her lopez oral tablet 00 PO, Daily, # 30 tab, 0 Refill(s) mirtazapine 2023-0 No 7.5 mg = 1 Memoria 7.5 mg oral 7-09 tab, PO, l tablet 16:18: Bedtime, # Cassandra nn 00 30 tab, 0 Refill(s) levothyroxi 2023-0 No 25 Memori a ne 25 mcg 7-09 microgram l (0.025 mg) 16:18: = 1 tab, Her lopez oral tablet 00 PO, Daily, # 30 tab, 0 Refill(s) mirtazapine 2023-0 No 7.5 mg = 1 Memoria 7.5 mg oral 7-09 tab, PO, l tablet 16:18: Bedtime, # Cassandra nn 00 30 tab, 0 Refill(s) levothyroxi 2023-0 No 25 Memori a ne 25 mcg 7-09 microgram l (0.025 mg) 16:18: = 1 tab, Her lopez oral tablet 00 PO, Daily, # 30 tab, 0 Refill(s) mirtazapine 2023-0 No 7.5 mg = 1 Memoria 7.5 mg oral 7-09 tab, PO, l tablet 16:18: Bedtime, # Cassandra nn 00 30 tab, 0 Refill(s) levothyroxi 2023-0 No 25 Memori a ne 25 mcg 7-09 microgram l (0.025 mg) 16:18: = 1 tab, Her lopez oral tablet 00 PO, Daily, # 30 tab, 0 Refill(s) sertraline 2023-0 No 50 mg = 1 Me moria 50 mg oral 7-09 tab, PO, l tablet 16:17: Daily, # [place] 00 30 tab, 0 Refill(s) risperiDONE 2023-0 No 1 mg = 2 Me moria 0.5 mg oral 7-09 tab, PO, l tablet 16:17: BID, # 120 Cassandra nn 00 tab, 0 Refill(s) OLANZapine 2023-0 No 5 mg = 1 Mem oria 5 mg oral 7-09 tab, PO, l tablet 16:17: Daily, # [place] 00 30 tab, 0 Refill(s) sertraline 2023-0 No 50 mg = 1 Me moria 50 mg oral 7-09 tab, PO, l tablet 16:17: Daily, # [place] 00 30 tab, 0 Refill(s) risperiDONE 2023-0 No 1 mg = 2 Me moria 0.5 mg oral 7-09 tab, PO, l tablet 16:17: BID, # 120 Cassandra nn 00 tab, 0 Refill(s) OLANZapine 2023-0 No 5 mg = 1 Mem oria 5 mg oral 7-09 tab, PO, l tablet 16:17: Daily, # Alec 00 30 tab, 0 Refill(s) sertraline 2023-0 No 50 mg = 1 Me moria 50 mg oral 7-09 tab, PO, l tablet 16:17: Daily, # [place] 00 30 tab, 0 Refill(s) risperiDONE 2023-0 No 1 mg = 2 Me moria 0.5 mg oral 7-09 tab, PO, l tablet 16:17: BID, # 120 Cassandra nn 00 tab, 0 Refill(s) OLANZapine 2023-0 No 5 mg = 1 Mem oria 5 mg oral 7-09 tab, PO, l tablet 16:17: Daily, # Alec 00 30 tab, 0 Refill(s) sertraline 2023-0 No 50 mg = 1 Me moria 50 mg oral 7-09 tab, PO, l tablet 16:17: Daily, # [place] 00 30 tab, 0 Refill(s) risperiDONE 2023-0 No 1 mg = 2 Me moria 0.5 mg oral 7-09 tab, PO, l tablet 16:17: BID, # 120 Cassandra nn 00 tab, 0 Refill(s) OLANZapine No 5 mg = 1 Mem oria 5 mg oral 7-09 tab, PO, l tablet 16:17: Daily, # Alec 00 30 tab, 0 Refill(s) sertraline No 50 mg = 1 Me moria 50 mg oral 7-09 tab, PO, l tablet 16:17: Daily, # [place] 00 30 tab, 0 Refill(s) risperiDONE No 1 mg = 2 Me moria 0.5 mg oral 7-09 tab, PO, l tablet 16:17: BID, # 120 Cassandra nn 00 tab, 0 Refill(s) OLANZapine No 5 mg = 1 Mem oria 5 mg oral 7-09 tab, PO, l tablet 16:17: Daily, # Alec 00 30 tab, 0 Refill(s) Dilaudid No Notes: Memoria 7- Same as: l 14:05: Dilaudid [place] 00 Dilaudid No Notes: Memoria 7-09 Same as: l 14:05: Dilaudid Alec 00 Dilaudid No Notes: Memoria 7- Same as: l 14:05: Dilaudid [place] 00 Dilaudid No Notes: Memoria 7- Same as: l 14:05: Dilaudid [place] 00 Dilaudid No Notes: Memoria 7- Same as: l 14:05: Dilaudid [place] 00 HYDROcodone Yes 1{tbl} Take [address] -acetaminop 7-30 tablet by Isreal ricci ([facility] 23:08: mouth [facility] 10-325) 16 every 6 Center 10-325 mg (six) per tablet hours as needed for Pain. aspirin 81 Yes 81mg QD Take [address] [facility] 7-[facility] 23:08: daily. [address] BIOTIN ORAL Yes QD Take [facility]: daily. [address] ZINC ORAL 2021-0 Yes QD [facility]: daily. [address] HYDROcodone 2020-0 Yes 1{tbl} Take [address] -acetaminop 7-30 tablet by Isreal es hen ([facility] 23:08: mouth Medica l 10-325) 16 every 6 Center 10-325 mg (six) per tablet hours as needed for Pain. aspirin 81 2020-0 Yes 81mg QD Take [address] [facility] EC 7-30 by [facility] tablet 23:08: daily. [address] BIOTIN ORAL 2020-0 Yes QD Take [facility]: daily. [address] ZINC ORAL 2020-0 Yes QD Take [facility]: daily. [address] HYDROcodone 2020-0 Yes 1{tbl} Take [address] -acetaminop 7-30 tablet by Isreal es hen ([facility] 23:08: mouth Medica [facility] 10-325) 16 every 6 Center 10-325 mg (six) per tablet hours as needed for Pain. aspirin 81 2020-0 Yes 81mg QD Take [address] MG EC 7-30 [facility] tablet 23:08: daily. [address] BIOTIN ORAL 2020-0 Yes QD Take [facility]: daily. [address] ZINC ORAL 2020-0 Yes QD Take [facility]: daily. [address] HYDROcodone 2020-0 Yes 1{tbl} Take [address] -acetaminop 7-30 tablet by Isreal es hen ([facility] 23:08: mouth Medica [facility] 10-325) 16 every 6 Center 10-325 mg (six) per tablet hours as needed for Pain. aspirin 81 2020-0 Yes 81mg QD Take [address] MG EC 7-30 [facility] tablet 23:08: daily. [address] BIOTIN ORAL 2020-0 Yes QD Take [facility]:08: daily. [address] ZINC ORAL 2020-0 Yes QD [facility]: daily. [address] HYDROcodone 2020-0 Yes 1{tbl} Take [address] -acetaminop 7-30 tablet by Isreal es hen ([facility] 23:08: mouth Medica [facility] 10-325) 16 every 6 Center 10-325 mg (six) per tablet hours as needed for Pain. aspirin 81 2020-0 Yes 81mg QD Take [address] MG EC 7-30 [facility] 23:08: daily. [address] BIOTIN ORAL 2020-0 Yes QD Take [facility]:08: daily. [address] ZINC ORAL 2020-0 Yes QD Take [facility]:08: daily. [address] HYDROcodone 2020-0 Yes 1{tbl} Take [address] -acetaminop 7-30 tablet by Isreal es hen ([facility] 23:08: mouth Medica [facility] 10-325) 16 every 6 Center 10-325 mg (six) per tablet hours as needed for Pain. aspirin 81 2020-0 Yes 81mg QD Take [address] MG EC 7-30 [facility] tablet 23:08: daily. [address] BIOTIN ORAL 2020-0 Yes QD Take [facility]:08: daily. [address] ZINC ORAL 2020-0 Yes QD Take [facility]:08: daily. [address] HYDROcodone 2020-0 Yes 1{tbl} Take [address] -acetaminop 7-30 tablet by Isreal es hen ([facility] 23:08: mouth Medica l 10-325) 16 every 6 Center 10-325 mg (six) per tablet hours as needed for Pain. aspirin 81 2020-0 Yes 81mg QD Take [address] MG EC 7-30 by [facility] tablet 23:08: daily. [address] BIOTIN ORAL 2020-0 Yes QD Take by [facility]:08: daily. [address] ZINC ORAL 2020-0 Yes QD [facility]:08: daily. [address] Vital Signs Vital Name Observation Time [...] 2023-02-22 14:35:00 80 /min [facility] Systolic blood 2023-02-22 14:35:00 [...] [facility] Arterial blood by Pulse oximetry Body temperature 2023-02-22 14:35:00 36.78 [facility] Respiratory rate 2023-02-22 14:35:00 18 /min [facility] Oxygen saturation in 2023-02-22 14:35:00 98 /min [facility] Arterial blood by Pulse oximetry Body height 2023-02-21 06:05:00 157.5 cm [facility] Body weight 2023-02-21 06:05:00 53.071 kg [facility] BMI 2023-02-21 06:05:00 21.40 kg/m2 [facility] Body height 2023-02-21 06:05:00 157.5 cm [facility] Body weight 2023-02-21 06:05:00 53.071 kg [facility] BMI 2023-02-21 06:05:00 21.40 kg/m2 [facility] Systolic blood 2023-02-22 14:35:00 145 mm[Hg] [facility] pressure Diastolic blood 2023-02-22 14:35:00 76 mm[Hg] [facility] pressure Heart rate 2023-02-22 14:35:00 80 /min [facility] Systolic blood 2023-02-22 14:35:00 [...] Health Arterial blood by Pulse oximetry Body temperature 2023-02-22 14:35:00 36.78 [facility] Respiratory rate 2023-02-22 14:35:00 18 /min [facility] Oxygen saturation in 2023-02-22 14:35:00 98 /min [facility] Arterial blood by Pulse oximetry Body height 2023-02-21 06:05:00 157.5 cm [facility] Body weight 2023-02-21 06:05:00 53.071 kg [facility] BMI 2023-02-21 06:05:00 21.40 kg/m2 [facility] Body height 2023-02-21 06:05:00 157.5 cm [facility] Body weight 2023-02-21 06:05:00 53.071 kg [facility] BMI 2023-02-21 06:05:00 21.40 kg/m2 [facility] HEIGHT 2021-04-07 21:25:00 170.2 cm WEIGHT 2021-04-07 21:25:00 55.929 kg HEIGHT 2021-04-07 07:50:00 170.2 cm WEIGHT 2021-04-07 07:50:00 58.968 kg HEIGHT 2021-04-06 15:00:00 170.2 cm WEIGHT 2021-04-06 15:00:00 58.968 kg Systolic blood 2023-05-02 03:14:00 119 mm[Hg] [facility] pressure Diastolic blood 2023-05-02 03:14:00 82 mm[Hg] [facility] pressure Heart rate 2023-05-02 03:14:00 80 /min [facility] Body temperature 2023-05-02 03:14:00 36.67 [facility] Respiratory rate 2023-05-02 03:14:00 17 /[facility] Oxygen saturation in 2023-05-02 03:14:00 98 /min [facility] Arterial blood by Pulse oximetry Body height 2023-04-29 11:20:00 170.2 cm [facility] Body weight 2023-04-29 11:20:00 48.535 kg [facility] BMI 2023-04-29 11:20:00 16.76 kg/m2 [facility] Height 2023-04-11 15:01:00 5 [ft_i] [facility] Weight 2023-04-11 15:01:00 [facility] Heart Rate 2023-04-11 12:46:16 [facility] Systolic (mm Hg) 2023-04-11 12:46:01 [facility] [place] Diastolic (mm Hg) 2023-04-11 12:46:01 [facility] Temperature Oral (F) 2023-04-11 12:45:41 97.9 F [facility] [place] Heart Rate 2023-04-10 06:08:16 [facility] [place] Systolic (mm Hg) 2023-04-10 06:07:37 [facility] [place] Diastolic (mm Hg) 2023-04-10 06:07:37 [facility] Heart Rate 2023-04-10 06:07:37 [facility] Temperature Oral (F) 2023-04-10 06:07:34 97.7 F [facility] [place] Heart Rate 2023-04-10 00:40:24 [facility] [place] Respitory Rate 2023-04-10 00:40:24 [facility] [place] Systolic (mm Hg) 2023-04-10 00:40:08 [facility] [place] Diastolic (mm Hg) 2023-04-10 00:40:08 [facility] [place] Temperature Oral (F) 2023-04-10 00:38:36 98.4 F [facility] Systolic (mm Hg) 2023-04-09 18:02:31 [facility] Diastolic (mm Hg) 2023-04-09 18:02:31 [facility] Temperature Oral (F) 2023-04-09 18:02:29 98.2 F [facility] Respitory Rate 2023-04-08 17:50:18 [facility] Respitory Rate 2023-04-08 13:12:04 [facility] Temperature Oral (F) 2023-04-06 01:32:24 97.7 F [facility] Heart Rate 2023-04-03 01:13:01 [facility] [place] Respitory Rate 2023-04-03 01:13:01 [facility] Systolic (mm Hg) 2023-04-03 01:12:50 [facility] Diastolic (mm Hg) 2023-04-03 01:12:50 [facility] [place] Heart Rate 2023-04-03 01:12:50 [facility] Temperature Oral (F) 2023-04-03 01:12:17 98 F [facility] Heart Rate 2023-04-02 17:11:14 [facility] [place] Respitory Rate 2023-04-02 17:11:14 [facility] Temperature Oral (F) 2023-04-02 17:11:05 98.2 F [facility] [place] Systolic (mm Hg) 2023-04-02 17:11:01 [facility] [place] Diastolic (mm Hg) 2023-04-02 17:11:01 [facility] [place] Respitory Rate 2023-04-02 12:23:27 [facility] Systolic (mm Hg) 2023-04-02 12:23:18 [facility] [facility] [place] Diastolic (mm Hg) 2023-04-02 12:23:18 [facility] [place] Temperature Oral (F) 2023-04-02 12:22:21 98.2 F [facility] [place] Height 2023-03-19 18:10:00 152.4 cm [facility] [place] Weight 2023-03-19 18:10:00 [facility] [place] BMI Calculated 2023-03-19 18:10:00 [facility] [place] Height 2023-03-19 13:28:00 160.02 cm [facility] [place] BMI Calculated 2023-03-19 13:28:00 [facility] Weight 2023-03-19 13:28:00 [facility] Systolic blood 2023-02-22 14:35:00 145 mm[Hg] [facility] pressure Diastolic blood 2023-02-22 14:35:00 76 mm[Hg] [facility] Heart rate 2023-02-22 14:35:00 80 /min [facility] Body temperature 2023-02-22 14:35:00 36.78 [facility] Respiratory rate 2023-02-22 14:35:00 18 /min [facility] Oxygen saturation in 2023-02-22 14:35:00 98 /min [facility] Arterial blood by Pulse oximetry Body height 2023-02-21 06:05:00 157.5 cm [facility] Body weight 2023-02-21 06:05:00 53.071 kg [facility] BMI 2023-02-21 06:05:00 21.40 kg/m2 [facility] Procedures Procedure Date / Time Performing Clinician Source Performed URINE CULTURE 2023-04-29 18:[facility] 2023-04-29 16:46:00 Carias, [facility] SCREEN URINALYSIS SCREEN AND 2023-04-29 16:46:00 Carias, [facility] MICROSCOPY, WITH REFLEX TO CULTURE ECG ED PRELIMINARY 2023-04-29 14:59:55 Aretha [facility] INTERPRETATION COVID-19 QUALITATIVE 2023-04-29 12:14:00 Carias, [facility] RT-PCR CBC WITH PLATELET AND 2023-04-29 12:14:00 Carias, [facility] DIFFERENTIAL COMPREHENSIVE METABOLIC 2023-04-29 12:14:00 CariasBrice sykes [facility] PANEL THYROID STIMULATING 2023-04-29 12:14:00 Carias, [facility] HORMONE T4, FREE 2023-04-29 12:14:00 [facility] ALCOHOL LEV[facility], BLOOD 2023-04-29 12:14:00 Carias, [facility] ACETAMINOPHEN LEVEL 2023-04-29 12:14:00 [facility] SALICYLATE LEV[facility] 2023-04-29 12:14:00 Carias, [facility] ESTIMATED GFR 2023-04-29 12:14:00 Aretha [facility] ECG 12-LEAD 2023-04-29 11:49:49 Aretha [facility] URINE DRUG SCREEN 2023-02-22 02:10:00 Noble Bonilla [employer] URINALYSIS W/REFLEX TO 2023-02-22 02:10:00 Noble Bonilla [facility] URINE CULTURE URINALYSIS 2023-02-22 02:10:00 Noble Bonilla [facility] URINE CULTURE COLLECTION 2023-02-22 02:10:00 Noble Bonilla [employer] KIT URINE DRUG SCREEN 2023-02-22 02:10:00 Ghislaine Bonillahin [employer] URINALYSIS W/REFLEX TO 2023-02-22 02:10:00 Noble Bonilla [facility] URINE CULTURE URINALYSIS 2023-02-22 02:10:00 Chad Noble [facility] URINE CULTURE COLLECTION 2023-02-22 02:10:00 Chad Noble [employer] KIT URINE DRUG SCREEN 2023-02-22 02:10:00 Ghislaine Bonillahin [employer] URINALYSIS W/REFLEX TO 2023-02-22 02:10:00 Ghislaine Bonillahin [facility] URINE CULTURE URINALYSIS 2023-02-22 02:10:00 Ghislaine Bonillahin [facility] URINE CULTURE COLLECTION 2023-02-22 02:10:00 [facility] [employer] KIT CONSULT CLINICAL CASE 2023-02-21 14:25:23 [facility] MANAGEMENT (RN/SW) Tiffany Vilchis CONSULT CLINICAL CASE 2023-02-21 14:25:23 Kun Giron [facility] MANAGEMENT (RN/SW) Tiffany Vilchis CONSULT CLINICAL CASE 2023-02-21 14:25:23 Kun [facility] MANAGEMENT (RN/SW) Tiffany Vilchis CT HEAD W/O CONTRAST 2023-02-21 10:01:32 Noble Bonilla [facility] CT HEAD W/O CONTRAST 2023-02-21 10:01:32 Noble Bonilla [facility] HEAD W/O CONTRAST 2023-02-21 10:01:32 [facility] BASIC METABOLIC PANEL 2023-02-21 08:21:00 Noble Bonilla [facility] CBC/DIFF 2023-02-21 08:21:00 Noble Bonilla ealth CBC 2023-02-21 08:21:00 Noble Bonilla ealt CBC/DIFF 2023-02-21 08:21:00 Noble Bonilla ealt BASIC METABOLIC PANEL 2023-02-21 08:21:00 Noble Bonilla [facility] CBC 2023-02-21 08:21:00 Noble Bonilla ealt BASIC METABOLIC PANEL 2023-02-21 08:21:00 Noble Bonilla [facility] CBC/DIFF 2023-02-21 08:21:00 Noble Bonilla [facility] CBC 2023-02-21 08:21:00 Noble Bonilla H ealt Plan of Care Planned Activity Planned Date [...] Scheduled 2014 Imm Pneumococcal 65+ (1 Tristan [facility] Test 00:00:00 - PCV) [code = Imm [...] PCV)] Future Scheduled 1999 Screening for malignant [facility] Test 00:00:00 neoplasm of colon (procedure) [code = 626894470] Future Scheduled 1999 SHINGLES VACCINES (1 of [...] 2)] Future Scheduled 1989 Breast Cancer Scrn [facility] Health Test 00:00:00 (Yearly) [code = Breast [...] breast Medical C enter (procedure) [code = 673504805] Future Scheduled 1949 CT Colonography (combo) [facility] Test 00:00:00 [code = CT Colonography [facility] (combo)] Future Scheduled 1949 Screening for malignant [facility] Test 00:00:00 neoplasm of colon Medical Ce nter (procedure) [code = 944980257] Future Scheduled 1949 Screening for malignant [facility] Test 00:00:00 neoplasm of colon Medical Ce nter (procedure) [code = 963953736] Future Scheduled 1949 DXA SCAN [code = DXA [facility] Test 00:00:00 SCAN] [facility] Future Scheduled 1949 Screening for malignant [facility] Test 00:00:00 neoplasm of colon Medical Ce nter (procedure) [code = 353824951] Future Scheduled 1949 Screening for malignant [facility] Test 00:00:00 neoplasm of colon Medical Ce nter (procedure) [code = 359287046] Future Scheduled 1949 [facility]oidoscopy [facility]] [facility] Future Scheduled 1949 Screening for malignant [facility] Test 00:00:00 neoplasm of breast Medical C enter (procedure) [code = 660794464] Future Scheduled 1949 CT Colonography (combo) [facility] Test 00:00:00 [code = CT Colonography [facility] (combo)] Future Scheduled 1949 Screening for malignant [facility] Test 00:00:00 neoplasm of colon Medical Ce nter (procedure) [code = 421664607] Future Scheduled 1949 Screening for malignant [facility] Test 00:00:00 neoplasm of colon Medical Ce nter (procedure) [code = 938083435] Future Scheduled 1949 DXA SCAN [code = DXA [facility] Test 00:00:00 SCAN] [facility] Future Scheduled 1949 Screening for malignant [facility] Test 00:00:00 neoplasm of colon Medical Ce nter (procedure) [code = 156697637] Future Scheduled 1949 Screening for malignant [facility] Test 00:00:00 neoplasm of colon Medical Ce nter (procedure) [code = 622520974] Future Scheduled 1949 Sigmoidoscopy [facility]code [facility] 00:[facility] Screening for malignant [facility] Test 00:00:00 neoplasm of breast Medical C enter (procedure) [code = 599324522] Future Scheduled 1949 CT Colonography (combo) [facility] Test 00:00:00 [code = CT Colonography [facility] (combo)] Future Scheduled 1949 Screening for malignant [facility] Test 00:00:00 neoplasm of colon Medical Ce nter (procedure) [code = 918046922] Future Scheduled 1949 Screening for malignant [facility] Test 00:00:00 neoplasm of colon Medical Ce nter (procedure) [code = 969870452] Future Scheduled 1949 DXA SCAN [code = DXA [facility] Test 00:00:00 SCAN] [facility] Future Scheduled 1949 Screening for malignant [facility] Test 00:00:00 neoplasm of colon Medical Ce nter (procedure) [code = 356821578] Future Scheduled 1949 Screening for malignant [facility] Test 00:00:00 neoplasm of colon Medical Ce nter (procedure) [code = 855765542] Future Scheduled 1949 Sigmoidoscopy [facility]code = [facility] Test 00:00:00 S[facility]oscopy] [facility] Future Scheduled 1949 Screening for malignant [facility] Test 00:00:00 neoplasm of breast Medical C enter (procedure) [code = 981733395] Future Scheduled 1949 CT Colonography (combo) [facility] Test 00:00:00 [code = CT Colonography [facility] (combo)] Future Scheduled 1949 Screening for malignant [facility] Test 00:00:00 neoplasm of colon Medical Ce nter (procedure) [code = 935713943] Future Scheduled 1949 Screening for malignant [facility] Test 00:00:00 neoplasm of colon Medical Ce nter (procedure) [code = 464353037] Future Scheduled 1949 DXA SCAN [code = DXA [facility] Test 00:00:00 SCAN] [facility] Future Scheduled 1949 Screening for malignant [facility] Test 00:00:00 neoplasm of colon Medical Ce nter (procedure) [code = 253932123] Future Scheduled 1949 Screening for malignant [facility] Test 00:00:00 neoplasm of colon Medical Ce nter (procedure) [code = 000289850] Future Scheduled 1949 Sigmoidoscopy [facility]code = [facility] Test 00:00:00 S[facility]oscopy] [facility] Future Scheduled 1949 Screening for malignant [facility] Test 00:00:00 neoplasm of breast Medical C enter (procedure) [code = 964006656] Future Scheduled 1949 CT Colonography (combo) [facility] Test 00:00:00 [code = CT Colonography [facility] (combo)] Future Scheduled 1949 Screening for malignant [facility] Test 00:00:00 neoplasm of colon Medical Ce nter (procedure) [code = 489812656] Future Scheduled 1949 Screening for malignant [facility] Test 00:00:00 neoplasm of colon Medical Ce nter (procedure) [code = 283353936] Future Scheduled 1949 DXA SCAN [code = DXA [facility] Test 00:00:00 SCAN] [facility] Future Scheduled 1949 Screening for malignant [facility] Test 00:00:00 neoplasm of colon Medical Ce nter (procedure) [code = 083446605] Future Scheduled 1949 Screening for malignant [facility] Test 00:00:00 neoplasm of colon Medical Ce nter (procedure) [code = 367460600] Future Scheduled 1949 Sigmoidoscopy [facility]code = [facility] Test 00:00:00 Sigmoidoscopy] [facility] Future Scheduled 1949 Screening for malignant [facility] Test 00:00:00 neoplasm of breast Medical C enter (procedure) [code = 570410012] Future Scheduled 1949 CT Colonography (combo) [facility] Test 00:00:00 [code = CT Colonography [facility] (combo)] Future Scheduled 1949 Screening for malignant [facility] Test 00:00:00 neoplasm of colon Medical Ce nter (procedure) [code = 468319673] Future Scheduled 1949 Screening for malignant [facility] Test 00:00:00 neoplasm of colon Medical Ce nter (procedure) [code = 108977719] Future Scheduled 1949 DXA SCAN [code = DXA [facility] Test 00:00:00 SCAN] [facility] Future Scheduled 1949 Screening for malignant [facility] Test 00:00:00 neoplasm of colon Medical Ce nter (procedure) [code = 212950211] Future Scheduled 1949 Screening for malignant [facility] Test 00:00:00 neoplasm of colon Medical Ce nter (procedure) [code = 308394749] Future Scheduled 1949 Sigmoidoscopy [code = [facility] Test 00:00:00 S[facility]oscopy] [facility] Future Scheduled 1949 Screening for malignant [facility] Test 00:00:00 neoplasm of breast Medical C enter (procedure) [code = 024654970] Future Scheduled 1949 CT Colonography (combo) [facility] Test 00:00:00 [code = CT Colonography [facility] (combo)] Future Scheduled 1949 Screening for malignant [facility] Test 00:00:00 neoplasm of colon Medical Ce nter (procedure) [code = 008353611] Future Scheduled 1949 Screening for malignant [facility] Test 00:00:00 neoplasm of colon Medical Ce nter (procedure) [code = 226606729] Future Scheduled 1949 DXA SCAN [code = DXA [facility] Test 00:00:00 SCAN] [facility] Future Scheduled 1949 Screening for malignant [facility] Test 00:00:00 neoplasm of colon Medical Ce nter (procedure) [code = 904508635] Future Scheduled 1949 Screening for malignant [facility] Test 00:00:00 neoplasm of colon Medical Ce nter (procedure) [code = 234139300] Future Scheduled 1949 Sigmoidoscopy [facility]code [facility] Test 00:00:00 S[facility]oscopy] [facility] Cent[facility] Encounters Start End Encounter Admission Attending Care Care Encounter Source Date/Time Date/Time Type Type Clinicians Facility Department ID 2023-04-04 Outpatient [facility] [id number] [place] 10:20:03 [id number] Health 2023-03-21 Outpatient [facility] [id number] [place] 08:01:14 [id number] [facility] 2021-06-20 Outpatient MICHAEL, SLE Surgery [id number] SLE 06:18:23 SHAHNAZ 2023-05-26 2023-05-26 Outpatient [facility] [id number] [place] 10:21:20 10:21:20 [id number] F Hermilo 2023-04-29 2023-05-01 Emergency Carias, 2.840.1 [id number] Method 06:30:00 22:44:00 Brice Ralph [id number] 3.430.2.7 Hospit a .[id number] l .8 2023-04-29 2023-05-01 Emergency [facility] [id number] 628 [place] 00:00:00 00:00:00 Brice Ralph [address] 2023-03-19 2023-04-[address] [facility] [id number] Memoria 13:26:00 01:40:[address] 2023-03-19 2023-04-[address] [facility] [id number] Memoria 13:26:00 01:40:[address] 2023-03-19 2023-04-11 Inpatient E [facility] MED [id number] Memoria 10:58:00 20:40:00 [facility] 00 l Alec Potter Memoria l 2023-03-19 2023-04-11 Inpatient E [facility] [place] MED [id number] Memoria 10:58:00 20:40:00 [facility] Alec Potter Memoria 2023-03-19 2023-04-11 Outpatient [facility] [id number] 08:26:00 20:40:00 Jamshaid 00 2023-04-05 2023-04-05 [facility] [id number] [place] 10:00:00 10:00:00 Demian [place] 2023-04-03 2023-04-03 Outpatient [facility] [id number] [place] 00:00:00 00:00:00 [facility] 2023-03-20 2023-03-20 Outpatient JASONQ [facility] [id number] [place] 06:45:00 06:45:00 Demian [place] 2023-03-19 2023-03-19 Outpatient Akram, MH9 [id number] 08:26:00 08:26:00 Jamshaid 00 2023-03-19 2023-03-19 Outpatient Akjean, LIO9 MH9 [id number] 08:26:00 08:26:00 Jamshaid 2023-03-19 2023-03-19 Outpatient Akram, LIO9 MH9 [id number] 08:26:00 [facility]23-[facility] 2023-02-22 Emergency Noble BonillaB 1.2 .[id number] Kun 06:07:00 15:25:00 [place] [id number] [facility] .2.7.2.6869 Dayo Martinez [id number] Tiffany Giron 2023-02-21 2023-02-22 Emergency [facility] [id number] [place] 06:07:00 15:25:00 [facility] 2023-02-21 2023-02-21 Emergency [facility] [id number] Tr[place] 09:18:00 10:01:38 [facility] 2023-02-21 2023-02-21 Emergency [facility] [id number] [place] 00:00:00 00:00:00 [facility] 2023-02-21 2023-02-21 Emergency [facility] [id number] Kun 00:00:00 00:00:00 [place] 2021-04-06 2021-04-06 Outpatient [facility] [id number] SLE 00:00:00 00:00:00 2021-04-06 2021-04-06 Outpatient [facility] [id number] SLE 00:00:00 00:00:00 Results Test Description Test Time Test Comments Results Result Comments Source Urine culture 2023-05-01 00:57:00 Test Item Value Reference Range Interpretation Comme nts Urine culture isolate Mixed kelsey 10-4 Sp ecimen InformationSpecimen (test code = 32103-3) col/cc Source : UrineSpecimen Site: Clean catch [facility] [id number] 00:57:00 Test Item Value Reference Range Interpretation Comments Urine culture Mixed kelsey Specimen isolate (test 10-4 col/cc [facility] code [facility] 86501-1) Source: Urin eSpecimen Site: Clean cat [facility] [id number] 00:57:00 Test Item Value Reference Range Interpretation Comments Urine culture Mixed kelsey Specimen isolate (test 10-4 col/cc InformationSpe [facility] code = 17097-4) Source: Urin eSpecimen Site: Clean cat [facility] 12 [id number] 11:57:16 Test Item Value Reference Range Interpretation Comments Ventricular rate (test 81 code = 253) Atrial rate (test code = 81 255) HI interval (test code = 154 266) QRSD [...] available-Electronica lly Signed By Gera Webber MD ([id number]) on 04/30/2023 6:57:11 AM [place] [address] [id number] 11:57:16 Test Item Value Reference Range Interpretation Comments Ventricular rate (test 81 code = 253) Atrial rate (test code = 81 255) HI interval (test code = 154 266) QRSD [...] available-Electronica lly Signed By Gera Webber MD ([id number]) on 04/30/2023 6:57:11 AM [facility] 12 [id number] 11:57:16 Test Item Value Reference Range Interpretation Comments Ventricular rate (test 81 code = 253) Atrial rate (test code = 81 255) HI interval (test code = 154 266) QRSD [...] available-Electronica lly Signed By Gera Webber MD ([id number]) on 04/30/2023 6:57:11 AM [facility] Interpretation - Not an [id number] 14:59:55Brice Carias DO 05/06/2023 8:26 [facility] ED Preliminary Interpretation - Not an Order Performed by: Brice Carias DOAuthorized by: Brice Carias DO ECG reviewed by ED Physician in the absence of a vehicle trimmer: yes Interpretation: Interpretation: normal Rate: ECG rate: 80 ECG rate assessment: normal Rhythm: Rhythm: sinus rhythm Ectopy: Ectopy: none QRS: QRS axis: Normal QRS intervals: NormalConduction: Conduction: normal ST segments: ST segments: NormalT waves: T waves: amomchZYLU-XmJ-7 (COVID-19) RNA [Presence] in Respiratory specimen by GREG with probe [id number] 08:41:44 Test Item Value Reference Range Interpretation Comments SARS-CoV-2 (COVID-19) RNA Not detected [Presence] in Respiratory specimen by GREG with probe detection (test code = 51553-7) Whether patient is employed in a Unknown healthcare setting (test code = 37979-4) Whether the patient has symptoms Unknown related to condition of interest (test code = 14422-5) Whether the patient was Unknown hospitalized for condition of interest (test code = 51343-0) Whether the patient was admitted Unknown to intensive care unit (ICU) for condition of interest (test code = 62062-4) Whether patient resides in a Unknown congregate care setting (test code = 78143-9) status (test code = Unknown 11054-5) Date and time of symptom onset Unknown (test code = 33215-8) [facility]2023-07-27 16:51:00 Test Item Value Reference Range Interpretation Comments Coronavirus (COVID-19) Detected 20, GREG (test code = 21*ABN*(04/06/23 11:51 Coronavirus (COVID-19) AM) GREG) [id number] 16:51:00 Test Item Value Reference Range Interpretation Comments Coronavirus (COVID-19) Detected 17, GREG (test code = 18*ABN*(04/06/23 11:51 Coronavirus (COVID-19) AM) GREG) [facility] [id number] 16:51:00 Test Item Value Reference Range Interpretation Comments Coronavirus (COVID-19) Detected 20, GREG (test code = 21*ABN*(04/06/23 11:51 Coronavirus (COVID-19) AM) GREG) [facility] [id number] 16:51:00 Test Item Value Reference Range Interpretation Comments Coronavirus (COVID-19) Detected 17, GREG (test code = 18*ABN*(04/06/23 11:51 Coronavirus (COVID-19) AM) GREG) [facility] [id number] 16:51:00 Test Item Value Reference Range Interpretation Comments Coronavirus (COVID-19) Detected 20, GREG (test code = 21*ABN*(04/06/23 11:51 Coronavirus (COVID-19) AM) GREG) [facility] [id number] 16:51:00 Test Item Value Reference Range Interpretation Comments Coronavirus (COVID-19) Detected 17, GREG (test code = 18*ABN*(04/06/23 11:51 Coronavirus (COVID-19) AM) GREG) [facility] [id number] 16:51:00 Test Item Value Reference Range Interpretation Comments Coronavirus (COVID-19) Detected 20, GREG (test code = 21*ABN*(04/06/23 11:51 Coronavirus (COVID-19) AM) GREG) [facility] [id number] 16:51:00 Test Item Value Reference Range Interpretation Comments Coronavirus (COVID-19) Detected 17, GREG (test code = 18*ABN*(04/06/23 11:51 Coronavirus (COVID-19) AM) GREG) [facility] [id number] 16:51:00 Test Item Value Reference Range Interpretation Comments Coronavirus (COVID-19) Detected 20, GREG (test code = 21*ABN*(04/06/23 11:51 Coronavirus (COVID-19) AM) GREG) [facility] [id number] 16:51:00 Test Item Value Reference Range Interpretation Comments Coronavirus (COVID-19) Detected 17, GREG (test code = 18*ABN*(04/06/23 11:51 Coronavirus (COVID-19) AM) GREG) [facility] [id number] 13:07:00 Test Item Value Reference Range Interpretation Comments Coronavirus (COVID-19) Detected 22, GREG (test code = 23*ABN*(04/04/23 8:07 Coronavirus (COVID-19) AM) GREG) [facility] [id number] 13:07:00 Test Item Value Reference Range Interpretation Comments Coronavirus (COVID-19) Detected 22, GREG (test code = 23*ABN*(04/04/23 8:07 Coronavirus (COVID-19) AM) GREG) [facility] [id number] 13:07:00 Test Item Value Reference Range Interpretation Comments Coronavirus (COVID-19) Detected 22, GREG (test code = 23*ABN*(04/04/23 8:07 Coronavirus (COVID-19) AM) GREG) [facility] [id number] 13:07:00 Test Item Value Reference Range Interpretation Comments Coronavirus (COVID-19) Detected 22, GREG (test code = 23*ABN*(04/04/23 8:07 Coronavirus (COVID-19) AM) GREG) [facility] [id number] 13:07:00 Test Item Value Reference Range Interpretation Comments Coronavirus (COVID-19) Detected 22, GREG (test code = 23*ABN*(04/04/23 8:07 Coronavirus (COVID-19) AM) GREG) [facility] [id number] 18:52:00 Test Item Value Reference Range Interpretation Comments Coronavirus (COVID-19) Detected 24, GREG (test code = 25*ABN*(03/28/23 1:52 Coronavirus (COVID-19) PM) GREG) [facility] [id number] 18:52:00 Test Item Value Reference Range Interpretation Comments Coronavirus (COVID-19) Detected 24, GREG (test code = 25*ABN*(03/28/23 1:52 Coronavirus (COVID-19) PM) GREG) [facility] [id number] 18:52:00 Test Item Value Reference Range Interpretation Comments Coronavirus (COVID-19) Detected 24, GREG (test code = 25*ABN*(03/28/23 1:52 Coronavirus (COVID-19) PM) GREG) [facility] [id number] 18:52:00 Test Item Value Reference Range Interpretation Comments Coronavirus (COVID-19) Detected 24, GREG (test code = 25*ABN*(03/28/23 1:52 Coronavirus (COVID-19) PM) GREG) [facility] [id number] 18:52:00 Test Item Value Reference Range Interpretation Comments Coronavirus (COVID-19) Detected 24, GREG (test code = 25*ABN*(03/28/23 1:52 Coronavirus (COVID-19) PM) GREG) [id number] 08:33:00 Test Item Value Reference Range Interpretation Comments Potassium Lvl (test code = Potassium 4.3 3.5-5.1 Lvl) [facility]1249[facility]54 08:33:00 Test Item Value Reference Range Interpretation Comments Chloride Lvl (test code = Chloride Lvl) 100 95-109 [facility] HospitalNzockgnSUUQTPDSO0055-47-30 08:33:00 Test Item Value Reference Range Interpretation Comments CO2 (test code = CO2) 30 24-32 [facility] HospitalUmcniixBBLWOJTSL4648-82-18 08:33:00 Test Item Value Reference Range Interpretation Comments Calcium Lvl (test code = Calcium Lvl) 9.2 8.5-10.5 [facility] HospitalIfvkkfiSLAXUQABZ3925-43-62 08:33:00 Test Item Value Reference Range Interpretation Comments AGAP (test code = AGAP) 9.3 10.0-20.0 [facility] HospitalIlxgwjgNSOBMQDWI7661-19-17 08:33:00 Test Item Value Reference Range Interpretation Comments eGFR (test code = eGFR) 93 [facility]6924[facility]-40 08:33:00 Test Item Value Reference Range Interpretation Comments Segs (test code = Segs) 78.2 45.0-75.0 [place] [address]-07-17 08:33:00 Test Item Value Reference Range Interpretation Comments Lymphocytes (test code = Lymphocytes) 10.9 20.0-40.0 [place] [address]-07-17 08:33:00 Test Item Value Reference Range Interpretation Comments Monocytes (test code = Monocytes) 10.1 2.0-12.0 [place] [address]-07-17 08:33:00 Test Item Value Reference Range Interpretation Comments Eosinophils (test code = Eosinophils) 0.5 <=4.0 [place] [address]-07-17 08:33:00 Test Item Value Reference Range Interpretation Comments Basophils (test code = Basophils) 0.3 <=1.0 [place] [address]-07-17 08:33:00 Test Item Value Reference Range Interpretation Comments Neutrophils # (test code = Neutrophils 4.7 1.5-8.1 #) [place] 783853-07-17 08:33:00 Test Item Value Reference Range Interpretation Comments Lymphocytes # (test code = Lymphocytes 0.7 1.0-5.5 #) [place] [address]-07-17 08:33:00 Test Item Value Reference Range Interpretation Comments Monocytes # (test code = Monocytes #) 0.6 <=0.8 [place] [address]-07-17 08:33:00 Test Item Value Reference Range Interpretation Comments WBC (test code = WBC) 6.0 3.7-10.4 [place] [address]-07-17 08:33:00 Test Item Value Reference Range Interpretation Comments RBC (test code = RBC) 2.91 4.20-5.40 [place] [address]-07-17 08:33:00 Test Item Value Reference Range Interpretation Comments Hgb (test code = Hgb) 8.3 12.0-16.0 [place] [address]-07-17 08:33:00 Test Item Value Reference Range Interpretation Comments Hct (test code = Hct) 25.8 36.0-48.0 [place] [address]-07-17 08:33:00 Test Item Value Reference Range Interpretation Comments MCV (test code = MCV) 88.5 80.0-98.0 [place] [address]-07-17 08:33:00 Test Item Value Reference Range Interpretation Comments MCH (test code = MCH) 28.6 pg 27.0-31.0 [place] 783853-07-17 08:33:00 Test Item Value Reference Range Interpretation Comments MCHC (test code = MCHC) 32.3 32.0-36.0 [place] 783853-07-17 08:33:00 Test Item Value Reference Range Interpretation Comments RDW (test code = RDW) 14.8 11.5-14.5 [place] 783853-07-17 08:33:00 Test Item Value Reference Range Interpretation Comments Platelet (test code = Platelet) 252 133-450 [place] 783853-07-17 08:33:00 Test Item Value Reference Range Interpretation Comments MPV (test code = MPV) 7.7 7.4-10.4 [place] 783853-07-17 08:33:00 Test Item Value Reference Range Interpretation Comments Segs (test code = Segs) 78.2 45.0-75.0 [place] 783853-07-17 08:33:00 Test Item Value Reference Range Interpretation Comments Lymphocytes (test code = Lymphocytes) 10.9 20.0-40.0 [place] 783853-07-17 08:33:00 Test Item Value Reference Range Interpretation Comments Monocytes (test code = Monocytes) 10.1 2.0-12.0 [place] [address]-07-17 08:33:00 Test Item Value Reference Range Interpretation Comments Eosinophils (test code = Eosinophils) 0.5 <=4.0 [place] [address]-07-17 08:33:00 Test Item Value Reference Range Interpretation Comments Basophils (test code = Basophils) 0.3 <=1.0 [place] [address]-07-17 08:33:00 Test Item Value Reference Range Interpretation Comments Neutrophils # (test code = Neutrophils 4.7 1.5-8.1 #) [place] 783853-07-17 08:33:00 Test Item Value Reference Range Interpretation Comments Lymphocytes # (test code = Lymphocytes 0.7 1.0-5.5 #) [facility]265[facility] 08:33:00 Test Item Value Reference Range Interpretation Comments Monocytes # (test code = Monocytes #) 0.6 <=0.8 [place] [address]-07-17 08:33:00 Test Item Value Reference Range Interpretation Comments WBC (test code = WBC) 6.0 3.7-10.4 [facility]QmqllkcRRWWNRUCQO1662-27-96 08:33:00 Test Item Value Reference Range Interpretation Comments RBC (test code = RBC) 2.91 4.20-5.40 [facility]TznokbrTNFLLHLSCM1202-00-74 08:33:00 Test Item Value Reference Range Interpretation Comments Hgb (test code = Hgb) 8.3 12.0-16.0 [place] 783853-07-17 08:33:00 Test Item Value Reference Range Interpretation Comments Hct (test code = Hct) 25.8 36.0-48.0 [place] 783853-07-17 08:33:00 Test Item Value Reference Range Interpretation Comments MCV (test code = MCV) 88.5 80.0-98.0 [facility]AthkhzyWFVYILXUZM8950-96-68 08:33:00 Test Item Value Reference Range Interpretation Comments MCH (test code = MCH) 28.6 pg 27.0-31.0 [facility]IaqzaknDHPEWFEJKN0371-03-41 08:33:00 Test Item Value Reference Range Interpretation Comments MCHC (test code = MCHC) 32.3 32.0-36.0 [facility] CenterWceddlaYLJMVHKEQL9592-77-97 08:33:00 Test Item Value Reference Range Interpretation Comments RDW (test code = RDW) 14.8 11.5-14.5 [place] 783853-07-17 08:33:00 Test Item Value Reference Range Interpretation Comments Platelet (test code = Platelet) 252 133-450 [place] 783853-07-17 08:33:00 Test Item Value Reference Range Interpretation Comments MPV (test code = MPV) 7.7 7.4-10.4 [place] 137583-07-17 08:33:00 Test Item Value Reference Range Interpretation Comments Glucose Lvl (test code = Glucose Lvl) 99 70-99 [place] 137583-07-17 08:33:00 Test Item Value Reference Range Interpretation Comments BUN (test code = BUN) 20 7- [place] 137583-07-17 08:33:00 Test Item Value Reference Range Interpretation Comments Creatinine Lvl (test code = Creatinine 0.62 0.50-1.40 Lvl) [place] 137583-07-17 08:33:00 Test Item Value Reference Range Interpretation Comments Sodium Lvl (test code = Sodium Lvl) 135 135-145 [place] 137583-07-17 08:33:00 Test Item Value Reference Range Interpretation Comments Potassium Lvl (test code = Potassium 4.3 3.5-5.1 Lvl) [place] 137583-07-17 08:33:00 Test Item Value Reference Range Interpretation Comments Chloride Lvl (test code = Chloride Lvl) 100 95-109 [place] 137583-07-17 08:33:00 Test Item Value Reference Range Interpretation Comments CO2 (test code = CO2) 30 24-32 [place] 137583-07-17 08:33:00 Test Item Value Reference Range Interpretation Comments Calcium Lvl (test code = Calcium Lvl) 9.2 8.5-10.5 [place] 137583-07-17 08:33:00 Test Item Value Reference Range Interpretation Comments AGAP (test code = AGAP) 9.3 10.0-20.0 [place] 137583-07-17 08:33:00 Test Item Value Reference Range Interpretation Comments eGFR (test code = eGFR) 93 [place] 405823-07-17 08:33:00 Test Item Value Reference Range Interpretation Comments Glucose Lvl (test code = Glucose Lvl) 99 70-99 [place] [address]-07-17 08:33:00 Test Item Value Reference Range Interpretation Comments BUN (test code = BUN) 20 7- [place] [address]-07-17 08:33:00 Test Item Value Reference Range Interpretation Comments Creatinine Lvl (test code = Creatinine 0.62 0.50-1.40 Lvl) [place] 405823-07-17 08:33:00 Test Item Value Reference Range Interpretation Comments Sodium Lvl (test code = Sodium Lvl) 135 135-145 [place] [address]-07-17 08:33:00 Test Item Value Reference Range Interpretation Comments Potassium Lvl (test code = Potassium 4.3 3.5-5.1 Lvl) [place] [address]-07-17 08:33:00 Test Item Value Reference Range Interpretation Comments Chloride Lvl (test code = Chloride Lvl) 100 95-109 [place] [address]-07-17 08:33:00 Test Item Value Reference Range Interpretation Comments CO2 (test code = CO2) 30 24-32 [place] [address]-07-17 08:33:00 Test Item Value Reference Range Interpretation Comments Calcium Lvl (test code = Calcium Lvl) 9.2 8.5-10.5 [place] [address]-07-17 08:33:00 Test Item Value Reference Range Interpretation Comments AGAP (test code = AGAP) 9.3 10.0-20.0 [place] [address]-07-17 08:33:00 Test Item Value Reference Range Interpretation Comments eGFR (test code = eGFR) 93 [place] 137583-07-17 08:33:00 Test Item Value Reference Range Interpretation Comments Glucose Lvl (test code = Glucose Lvl) 99 70-99 [place] 137583-07-17 08:33:00 Test Item Value Reference Range Interpretation Comments BUN (test code = BUN) 20 7-22 [place] [address]-07-17 08:33:00 Test Item Value Reference Range Interpretation Comments Segs (test code = Segs) 78.2 45.0-75.0 [place] [address]-07-17 08:33:00 Test Item Value Reference Range Interpretation Comments Creatinine Lvl (test code = Creatinine 0.62 0.50-1.40 Lvl) [place] [address]-07-17 08:33:00 Test Item Value Reference Range Interpretation Comments Sodium Lvl (test code = Sodium Lvl) 135 135-145 [place] 137583-07-17 08:33:00 Test Item Value Reference Range Interpretation Comments Potassium Lvl (test code = Potassium 4.3 3.5-5.1 Lvl) [place] 137583-07-17 08:33:00 Test Item Value Reference Range Interpretation Comments Chloride Lvl (test code = Chloride Lvl) 100 95-109 [facility]2023-07-17 08:33:00 Test Item Value Reference Range Interpretation Comments CO2 (test code = CO2) 30 24-32 [facility] BBEXK1009-27-77 08:33:00 Test Item Value Reference Range Interpretation Comments Calcium Lvl (test code = Calcium Lvl) 9.2 8.5-10.5 [facility] ZADCX1359-77-17 08:33:00 Test Item Value Reference Range Interpretation Comments AGAP (test code = AGAP) 9.3 10.0-20.0 [facility]2023-07-17 08:33:00 Test Item Value Reference Range Interpretation Comments eGFR (test code = eGFR) 93 [place] 405823-07-17 08:33:00 Test Item Value Reference Range Interpretation Comments Glucose Lvl (test code = Glucose Lvl) 99 70-99 [place] 405823-07-17 08:33:00 Test Item Value Reference Range Interpretation Comments BUN (test code = BUN) 20 7-22 [facility]RSKZVX0521-40-04 08:33:00 Test Item Value Reference Range Interpretation Comments Lymphocytes (test code = Lymphocytes) 10.9 20.0-40.0 [place] [address]-07-17 08:33:00 Test Item Value Reference Range Interpretation Comments Creatinine Lvl (test code = Creatinine 0.62 0.50-1.40 Lvl) [facility]kbwoaqWSNGRTHCG1345-68-15 08:33:00 Test Item Value Reference Range Interpretation Comments Sodium Lvl (test code = Sodium Lvl) 135 135-145 [place] 405823-07-17 08:33:00 Test Item Value Reference Range Interpretation Comments Potassium Lvl (test code = Potassium 4.3 3.5-5.1 Lvl) [place] 405823-07-17 08:33:00 Test Item Value Reference Range Interpretation Comments Chloride Lvl (test code = Chloride Lvl) 100 95-109 [place] [address]-07-17 08:33:00 Test Item Value Reference Range Interpretation Comments CO2 (test code = CO2) 30 24-32 [place] 405823-07-17 08:33:00 Test Item Value Reference Range Interpretation Comments Calcium Lvl (test code = Calcium Lvl) 9.2 8.5-10.5 [facility] HospitalWqczvieMOVHJBJMG9857-37-84 08:33:00 Test Item Value Reference Range Interpretation Comments AGAP (test code = AGAP) 9.3 10.0-20.0 [place] 405823-07-17 08:33:00 Test Item Value Reference Range Interpretation Comments eGFR (test code = eGFR) 93 [facility]znzywLBVGDUTQKU5411-84-66 08:33:00 Test Item Value Reference Range Interpretation Comments Segs (test code = Segs) 78.2 45.0-75.0 [place] 783853-07-17 08:33:00 Test Item Value Reference Range Interpretation Comments Lymphocytes (test code = Lymphocytes) 10.9 20.0-40.0 [place] 783853-07-17 08:33:00 Test Item Value Reference Range Interpretation Comments Monocytes (test code = Monocytes) 10.1 2.0-12.0 [place] 783853-07-17 08:33:00 Test Item Value Reference Range Interpretation Comments Monocytes (test code = Monocytes) 10.1 2.0-12.0 [place] [address]-07-17 08:33:00 Test Item Value Reference Range Interpretation Comments Eosinophils (test code = Eosinophils) 0.5 <=4.0 [place] 783853-07-17 08:33:00 Test Item Value Reference Range Interpretation Comments Basophils (test code = Basophils) 0.3 <=1.0 [facility]uvbpxhTYKLPXUNRK2016-22-79 08:33:00 Test Item Value Reference Range Interpretation Comments Neutrophils # (test code = Neutrophils 4.7 1.5-8.1 #) [place] 783853-07-17 08:33:00 Test Item Value Reference Range Interpretation Comments Lymphocytes # (test code = Lymphocytes 0.7 1.0-5.5 #) [place] [address]-07-17 08:33:00 Test Item Value Reference Range Interpretation Comments Monocytes # (test code = Monocytes #) 0.6 <=0.8 [place] [address]-07-17 08:33:00 Test Item Value Reference Range Interpretation Comments WBC (test code = WBC) 6.0 3.7-10.4 [place] 783853-07-17 08:33:00 Test Item Value Reference Range Interpretation Comments RBC (test code = RBC) 2.91 4.20-5.40 [place] [address]-07-17 08:33:00 Test Item Value Reference Range Interpretation Comments Hgb (test code = Hgb) 8.3 12.0-16.0 [place] [address]-07-17 08:33:00 Test Item Value Reference Range Interpretation Comments Hct (test code = Hct) 25.8 36.0-48.0 [place] [address]-07-17 08:33:00 Test Item Value Reference Range Interpretation Comments Eosinophils (test code = 0.5 See_Comment [A utomated message] The Eosinophils) system which ge nerated this result tra nsmitted reference range : <=4.0. The reference r vasile was not used to int erpret this result as normal/abnormal . [place] [address]-07-17 08:33:00 Test Item Value Reference Range Interpretation Comments MCV (test code = MCV) 88.5 80.0-98.0 [place] [address]-07-17 08:33:00 Test Item Value Reference Range Interpretation Comments MCH (test code = MCH) 28.6 pg 27.0-31.0 [place] [address]-07-17 08:33:00 Test Item Value Reference Range Interpretation Comments MCHC (test code = MCHC) 32.3 32.0-36.0 [place] [address]-07-17 08:33:00 Test Item Value Reference Range Interpretation Comments RDW (test code = RDW) 14.8 11.5-14.5 [place] [address]-07-17 08:33:00 Test Item Value Reference Range Interpretation Comments Platelet (test code = Platelet) 252 133-450 [place] [address]-07-17 08:33:00 Test Item Value Reference Range Interpretation Comments MPV (test code = MPV) 7.7 7.4-10.4 [place] [address]-07-17 08:33:00 Test Item Value Reference Range Interpretation Comments Segs (test code = Segs) 78.2 45.0-75.0 [place] [address]-07-17 08:33:00 Test Item Value Reference Range Interpretation Comments Lymphocytes (test code = Lymphocytes) 10.9 20.0-40.0 [place] [address]-07-17 08:33:00 Test Item Value Reference Range Interpretation Comments Monocytes (test code = Monocytes) 10.1 2.0-12.0 [address]07-17 08:33:00 Test Item Value Reference Range Interpretation Comments Eosinophils (test code = Eosinophils) 0.5 <=4.0 [place] [address]-07-17 08:33:00 Test Item Value Reference Range Interpretation Comments Basophils (test code = 0.3 See_Comment [Aut omated message] The Basophils) system which ge nerated this result tra nsmitted reference range : <=1.0. The reference r vasile was not used to int erpret this result as normal/abnormal . [address]07-17 08:33:00 Test Item Value Reference Range Interpretation Comments Basophils (test code = Basophils) 0.3 <=1.0 [place] [address]-07-17 08:33:00 Test Item Value Reference Range Interpretation Comments Neutrophils # (test code = Neutrophils 4.7 1.5-8.1 #) [place] [address]-07-17 08:33:00 Test Item Value Reference Range Interpretation Comments Lymphocytes # (test code = Lymphocytes 0.7 1.0-5.5 #) [place] [address]-07-17 08:33:00 Test Item Value Reference Range Interpretation Comments Monocytes # (test code = Monocytes #) 0.6 <=0.8 [place] [address]-07-17 08:33:00 Test Item Value Reference Range Interpretation Comments WBC (test code = WBC) 6.0 3.7-10.4 [place] [address]-07-17 08:33:00 Test Item Value Reference Range Interpretation Comments RBC (test code = RBC) 2.91 4.20-5.40 [place] [address]-07-17 08:33:00 Test Item Value Reference Range Interpretation Comments Hgb (test code = Hgb) 8.3 12.0-16.0 [place] [address]-07-17 08:33:00 Test Item Value Reference Range Interpretation Comments Hct (test code = Hct) 25.8 36.0-48.0 [address]07-17 08:33:00 Test Item Value Reference Range Interpretation Comments MCV (test code = MCV) 88.5 80.0-98.0 [address]07-17 08:33:00 Test Item Value Reference Range Interpretation Comments MCH (test code = MCH) 28.6 pg 27.0-31.0 [place] [address]-07-17 08:33:00 Test Item Value Reference Range Interpretation Comments Neutrophils # (test code = Neutrophils 4.7 1.5-8.1 #) [address]07-17 08:33:00 Test Item Value Reference Range Interpretation Comments MCHC (test code = MCHC) 32.3 32.0-36.0 [address]07-17 08:33:00 Test Item Value Reference Range Interpretation Comments RDW (test code = RDW) 14.8 11.5-14.5 [place] [address]-07-17 08:33:00 Test Item Value Reference Range Interpretation Comments Platelet (test code = Platelet) 252 133-450 [place] [address]-07-17 08:33:00 Test Item Value Reference Range Interpretation Comments MPV (test code = MPV) 7.7 7.4-10.4 [place] [address]-07-17 08:33:00 Test Item Value Reference Range Interpretation Comments Lymphocytes # (test code = Lymphocytes 0.7 1.0-5.5 #) [place] [address]-07-17 08:33:00 Test Item Value Reference Range Interpretation Comments Monocytes # (test code 0.6 See_Comment [Aut omated message] The = Monocytes #) system which generated this result tra nsmitted reference range : <=0.8. The reference r vasile was not used to int erpret this result as normal/abnormal . [address]07-17 08:33:00 Test Item Value Reference Range Interpretation Comments WBC (test code = WBC) 6.0 3.7-10.4 [place] [address]-07-17 08:33:00 Test Item Value Reference Range Interpretation Comments RBC (test code = RBC) 2.91 4.20-5.40 [place] [address]-07-17 08:33:00 Test Item Value Reference Range Interpretation Comments Hgb (test code = Hgb) 8.3 12.0-16.0 [place] [address]-07-17 08:33:00 Test Item Value Reference Range Interpretation Comments Hct (test code = Hct) 25.8 36.0-48.0 [place] [address]-07-17 08:33:00 Test Item Value Reference Range Interpretation Comments MCV (test code = MCV) 88.5 80.0-98.0 [place] [address]-07-17 08:33:00 Test Item Value Reference Range Interpretation Comments MCH (test code = MCH) 28.6 pg 27.0-31.0 [place] [address]-07-17 08:33:00 Test Item Value Reference Range Interpretation Comments MCHC (test code = MCHC) 32.3 32.0-36.0 [place] 783853-07-17 08:33:00 Test Item Value Reference Range Interpretation Comments RDW (test code = RDW) 14.8 11.5-14.5 [place] 783853-07-17 08:33:00 Test Item Value Reference Range Interpretation Comments Platelet (test code = Platelet) 252 133-450 [facility]fnlWZGIHEBBWU5127-[facility]-29 08:33:00 Test Item Value Reference Range Interpretation Comments MPV (test code = MPV) 7.7 7.4-10.4 [place] [address]-07-17 08:33:00 Test Item Value Reference Range Interpretation Comments Segs (test code = Segs) 78.2 45.0-75.0 [place] [address]-07-17 08:33:00 Test Item Value Reference Range Interpretation Comments Lymphocytes (test code = Lymphocytes) 10.9 20.0-40.0 [place] [address]-07-17 08:33:00 Test Item Value Reference Range Interpretation Comments Monocytes (test code = Monocytes) 10.1 2.0-12.0 [place] [address]-07-17 08:33:00 Test Item Value Reference Range Interpretation Comments Eosinophils (test code = 0.5 See_Comment [A utomated message] The Eosinophils) system which ge nerated this result tra nsmitted reference range : <=4.0. The reference r vasile was not used to int erpret this result as normal/abnormal . [place] [address]-07-17 08:33:00 Test Item Value Reference Range Interpretation Comments Basophils (test code = 0.3 See_Comment [Aut omated message] The Basophils) system which ge nerated this result tra nsmitted reference range : <=1.0. The reference r vasile was not used to int erpret this result as normal/abnormal . [place] [address]-07-17 08:33:00 Test Item Value Reference Range Interpretation Comments Neutrophils # (test code = Neutrophils 4.7 1.5-8.1 #) [place] [address]-07-17 08:33:00 Test Item Value Reference Range Interpretation Comments Lymphocytes # (test code = Lymphocytes 0.7 1.0-5.5 #) [place] [address]-07-17 08:33:00 Test Item Value Reference Range Interpretation Comments Monocytes # (test code 0.6 See_Comment [Aut omated message] The = Monocytes #) system which generated this result tra nsmitted reference range : <=0.8. The reference r vasile was not used to int erpret this result as normal/abnormal . [place] [address]-07-17 08:33:00 Test Item Value Reference Range Interpretation Comments WBC (test code = WBC) 6.0 3.7-10.4 [place] [address]-07-17 08:33:00 Test Item Value Reference Range Interpretation Comments RBC (test code = RBC) 2.91 4.20-5.40 [place] [address]-07-17 08:33:00 Test Item Value Reference Range Interpretation Comments Hgb (test code = Hgb) 8.3 12.0-16.0 [place] [address]-07-17 08:33:00 Test Item Value Reference Range Interpretation Comments Hct (test code = Hct) 25.8 36.0-48.0 [place] [address]-07-17 08:33:00 Test Item Value Reference Range Interpretation Comments MCV (test code = MCV) 88.5 80.0-98.0 [place] [address]-07-17 08:33:00 Test Item Value Reference Range Interpretation Comments MCH (test code = MCH) 28.6 pg 27.0-31.0 [place] [address]-07-17 08:33:00 Test Item Value Reference Range Interpretation Comments MCHC (test code = MCHC) 32.3 32.0-36.0 [place] [address]-07-17 08:33:00 Test Item Value Reference Range Interpretation Comments RDW (test code = RDW) 14.8 11.5-14.5 [place] [address]-07-17 08:33:00 Test Item Value Reference Range Interpretation Comments Platelet (test code = Platelet) 252 133-450 [place] [address]-07-17 08:33:00 Test Item Value Reference Range Interpretation Comments MPV (test code = MPV) 7.7 7.4-10.4 [place] [address]-07-17 08:33:00 Test Item Value Reference Range Interpretation Comments Glucose Lvl (test code = Glucose Lvl) 99 70-99 [place] [address]-07-17 08:33:00 Test Item Value Reference Range Interpretation Comments BUN (test code = BUN) 20 7-22 [place] [address]-07-17 08:33:00 Test Item Value Reference Range Interpretation Comments Creatinine Lvl (test code = Creatinine 0.62 0.50-1.40 Lvl) [place] [address]-07-17 08:33:00 Test Item Value Reference Range Interpretation Comments Sodium Lvl (test code = Sodium Lvl) 135 135-145 [place] 137583-07-17 08:33:00 Test Item Value Reference Range Interpretation Comments Potassium Lvl (test code = Potassium 4.3 3.5-5.1 Lvl) [place] [address]-07-17 08:33:00 Test Item Value Reference Range Interpretation Comments Chloride Lvl (test code = Chloride Lvl) 100 95-109 [place] [address]-07-17 08:33:00 Test Item Value Reference Range Interpretation Comments CO2 (test code = CO2) 30 24-32 [place] [address]-07-17 08:33:00 Test Item Value Reference Range Interpretation Comments Calcium Lvl (test code = Calcium Lvl) 9.2 8.5-10.5 [place] [address]-07-17 08:33:00 Test Item Value Reference Range Interpretation Comments AGAP (test code = AGAP) 9.3 10.0-20.0 [place] 137583-07-17 08:33:00 Test Item Value Reference Range Interpretation Comments eGFR (test code = eGFR) 93 [place] [address]-07-17 08:33:00 Test Item Value Reference Range Interpretation Comments Glucose Lvl (test code = Glucose Lvl) 99 70-99 [place] [address]-07-17 08:33:00 Test Item Value Reference Range Interpretation Comments BUN (test code = BUN) 20 7-22 [place] [address]-07-17 08:33:00 Test Item Value Reference Range Interpretation Comments Creatinine Lvl (test code = Creatinine 0.62 0.50-1.40 Lvl) [place] [address]-07-17 08:33:00 Test Item Value Reference Range Interpretation Comments Sodium Lvl (test code = Sodium Lvl) 135 135-145 [place] [address]-07-17 08:33:00 Test Item Value Reference Range Interpretation Comments Potassium Lvl (test code = Potassium 4.3 3.5-5.1 Lvl) [place] [address]-07-17 08:33:00 Test Item Value Reference Range Interpretation Comments Chloride Lvl (test code = Chloride Lvl) 100 95-109 [place] [address]-07-17 08:33:00 Test Item Value Reference Range Interpretation Comments CO2 (test code = CO2) 30 24-32 [place] [address]-07-17 08:33:00 Test Item Value Reference Range Interpretation Comments Calcium Lvl (test code = Calcium Lvl) 9.2 8.5-10.5 [place] [address]-07-17 08:33:00 Test Item Value Reference Range Interpretation Comments AGAP (test code = AGAP) 9.3 10.0-20.0 [place] [address]-07-17 08:33:00 Test Item Value Reference Range Interpretation Comments eGFR (test code = eGFR) 93 [place] 783853-07-17 08:33:00 Test Item Value Reference Range Interpretation Comments Segs (test code = Segs) 78.2 45.0-75.0 [place] [address]-07-17 08:33:00 Test Item Value Reference Range Interpretation Comments Lymphocytes (test code = Lymphocytes) 10.9 20.0-40.0 [place] [address]-07-17 08:33:00 Test Item Value Reference Range Interpretation Comments Monocytes (test code = Monocytes) 10.1 2.0-12.0 [place] [address]-07-17 08:33:00 Test Item Value Reference Range Interpretation Comments Eosinophils (test code = 0.5 See_Comment [A utomated message] The Eosinophils) system which ge nerated this result tra nsmitted reference range : <=4.0. The reference r vasile was not used to int erpret this result as normal/abnormal . [place] [address]-07-17 08:33:00 Test Item Value Reference Range Interpretation Comments Basophils (test code = 0.3 See_Comment [Aut omated message] The Basophils) system which ge nerated this result tra nsmitted reference range : <=1.0. The reference r vasile was not used to int erpret this result as normal/abnormal . [place] [address]-07-17 08:33:00 Test Item Value Reference Range Interpretation Comments Neutrophils # (test code = Neutrophils 4.7 1.5-8.1 #) [place] [address]-07-17 08:33:00 Test Item Value Reference Range Interpretation Comments Lymphocytes # (test code = Lymphocytes 0.7 1.0-5.5 #) [place] [address]-07-17 08:33:00 Test Item Value Reference Range Interpretation Comments Monocytes # (test code 0.6 See_Comment [Aut omated message] The = Monocytes #) system which generated this result tra nsmitted reference range : <=0.8. The reference r vasile was not used to int erpret this result as normal/abnormal . [place] [address]-07-17 08:33:00 Test Item Value Reference Range Interpretation Comments WBC (test code = WBC) 6.0 3.7-10.4 [place] [address]-07-17 08:33:00 Test Item Value Reference Range Interpretation Comments RBC (test code = RBC) 2.91 4.20-5.40 [place] [address]-07-17 08:33:00 Test Item Value Reference Range Interpretation Comments Hgb (test code = Hgb) 8.3 12.0-16.0 [facility] 08:33:00 Test Item Value Reference Range Interpretation Comments Hct (test code = Hct) 25.8 36.0-48.0 [facility]NPOTJJXHQR3728[facility]15-06 08:33:00 Test Item Value Reference Range Interpretation Comments MCV (test code = MCV) 88.5 80.0-98.0 [place] 783853-07-17 08:33:00 Test Item Value Reference Range Interpretation Comments MCH (test code = MCH) 28.6 pg 27.0-31.0 [place] 783853-07-17 08:33:00 Test Item Value Reference Range Interpretation Comments MCHC (test code = MCHC) 32.3 32.0-36.0 [facility]XjfhbjnZGKSKVFBYP4621-04-98 08:33:00 Test Item Value Reference Range Interpretation Comments RDW (test code = RDW) 14.8 11.5-14.5 [facility]SntwvgoGSLBQAVSEP5624-14-84 08:33:00 Test Item Value Reference Range Interpretation Comments Platelet (test code = Platelet) 252 133-450 [facility]PblmfyuJYRTFEMJCC3932-17-46 08:33:00 Test Item Value Reference Range Interpretation Comments MPV (test code = MPV) 7.7 7.4-10.4 [facility]GqvskqkVJFVPSLCAL8134-91-81 08:33:00 Test Item Value Reference Range Interpretation Comments Segs (test code = Segs) 78.2 45.0-75.0 [facility] CenterGbzdkmmQPCHVCGDZA1922-10-25 08:33:00 Test Item Value Reference Range Interpretation Comments Lymphocytes (test code = Lymphocytes) 10.9 20.0-40.0 [place] [address]-07-17 08:33:00 Test Item Value Reference Range Interpretation Comments Monocytes (test code = Monocytes) 10.1 2.0-12.0 [place] [address]-07-17 08:33:00 Test Item Value Reference Range Interpretation Comments Eosinophils (test code = 0.5 See_Comment [A utomated message] The Eosinophils) system which ge nerated this result tra nsmitted reference range : <=4.0. The reference r vasile was not used to int erpret this result as normal/abnormal . [address]07-17 08:33:00 Test Item Value Reference Range Interpretation Comments Basophils (test code = 0.3 See_Comment [Aut omated message] The Basophils) system which ge nerated this result tra nsmitted reference range : <=1.0. The reference r vasile was not used to int erpret this result as normal/abnormal . [place] [address]-07-17 08:33:00 Test Item Value Reference Range Interpretation Comments Neutrophils # (test code = Neutrophils 4.7 1.5-8.1 #) [place] [address]-07-17 08:33:00 Test Item Value Reference Range Interpretation Comments Lymphocytes # (test code = Lymphocytes 0.7 1.0-5.5 #) [place] [address]-07-17 08:33:00 Test Item Value Reference Range Interpretation Comments Monocytes # (test code 0.6 See_Comment [Aut omated message] The = Monocytes #) system which generated this result tra nsmitted reference range : <=0.8. The reference r vasile was not used to int erpret this result as normal/abnormal . [place] 783853-07-17 08:33:00 Test Item Value Reference Range Interpretation Comments WBC (test code = WBC) 6.0 3.7-10.4 [place] [address]-07-17 08:33:00 Test Item Value Reference Range Interpretation Comments RBC (test code = RBC) 2.91 4.20-5.40 [place] [address]-07-17 08:33:00 Test Item Value Reference Range Interpretation Comments Hgb (test code = Hgb) 8.3 12.0-16.0 [place] [address]-07-17 08:33:00 Test Item Value Reference Range Interpretation Comments Hct (test code = Hct) 25.8 36.0-48.0 [place] [address]-07-17 08:33:00 Test Item Value Reference Range Interpretation Comments MCV (test code = MCV) 88.5 80.0-98.0 [place] [address]-07-17 08:33:00 Test Item Value Reference Range Interpretation Comments MCH (test code = MCH) 28.6 pg 27.0-31.0 [place] [address]-07-17 08:33:00 Test Item Value Reference Range Interpretation Comments MCHC (test code = MCHC) 32.3 32.0-36.0 [place] [address]-07-17 08:33:00 Test Item Value Reference Range Interpretation Comments RDW (test code = RDW) 14.8 11.5-14.5 [place] [address]-07-17 08:33:00 Test Item Value Reference Range Interpretation Comments Platelet (test code = Platelet) 252 133-450 [place] [address]-07-17 08:33:00 Test Item Value Reference Range Interpretation Comments MPV (test code = MPV) 7.7 7.4-10.4 [place] 137583-07-17 08:33:00 Test Item Value Reference Range Interpretation Comments Glucose Lvl (test code = Glucose Lvl) 99 70-99 [place] 137583-07-17 08:33:00 Test Item Value Reference Range Interpretation Comments BUN (test code = BUN) 20 7-22 [place] 137583-07-17 08:33:00 Test Item Value Reference Range Interpretation Comments Creatinine Lvl (test code = Creatinine 0.62 0.50-1.40 Lvl) [place] 137583-07-17 08:33:00 Test Item Value Reference Range Interpretation Comments Sodium Lvl (test code = Sodium Lvl) 135 135-145 [place] 137583-07-17 08:33:00 Test Item Value Reference Range Interpretation Comments Potassium Lvl (test code = Potassium 4.3 3.5-5.1 Lvl) [place] 137583-07-17 08:33:00 Test Item Value Reference Range Interpretation Comments Chloride Lvl (test code = Chloride Lvl) 100 95-109 [place] 137583-07-17 08:33:00 Test Item Value Reference Range Interpretation Comments CO2 (test code = CO2) 30 24-32 [place] 137583-07-17 08:33:00 Test Item Value Reference Range Interpretation Comments Calcium Lvl (test code = Calcium Lvl) 9.2 8.5-10.5 [place] 137583-07-17 08:33:00 Test Item Value Reference Range Interpretation Comments AGAP (test code = AGAP) 9.3 10.0-20.0 [facility] [place]2023-07-17 08:33:00 Test Item Value Reference Range Interpretation Comments eGFR (test code = eGFR) 93 [facility] 08:33:00 Test Item Value Reference Range Interpretation Comments Glucose Lvl (test code = Glucose Lvl) 99 70-99 [place] 405823-07-17 08:33:00 Test Item Value Reference Range Interpretation Comments BUN (test code = BUN) 20 7-22 [place] 405823-07-17 08:33:00 Test Item Value Reference Range Interpretation Comments Creatinine Lvl (test code = Creatinine 0.62 0.50-1.40 Lvl) [facility]feITDNLVTZG8612[facility] 08:33:00 Test Item Value Reference Range Interpretation Comments Sodium Lvl (test code = Sodium Lvl) 135 135-145 [place] 405823-07-17 08:33:00 Test Item Value Reference Range Interpretation Comments Potassium Lvl (test code = Potassium 4.3 3.5-5.1 Lvl) [facility]GtcsvaxLNHQCIBNC2609-25-97 08:33:00 Test Item Value Reference Range Interpretation Comments Chloride Lvl (test code = Chloride Lvl) 100 95-109 [facility] HospitalLnhvnmyNKQVLVMEY4751-85-14 08:33:00 Test Item Value Reference Range Interpretation Comments CO2 (test code = CO2) 30 24-32 [facility] HospitalCxskkbxETXVRXYON8064-74-53 08:33:00 Test Item Value Reference Range Interpretation Comments Calcium Lvl (test code = Calcium Lvl) 9.2 8.5-10.5 [facility] HospitalZftpefqXFUKXUWBL4812-52-28 08:33:00 Test Item Value Reference Range Interpretation Comments AGAP (test code = AGAP) 9.3 10.0-20.0 [place] 405823-07-17 08:33:00 Test Item Value Reference Range Interpretation Comments eGFR (test code = eGFR) 93 [facility]zjpaofMNMIIMQTKY6434-17-91 08:33:00 Test Item Value Reference Range Interpretation Comments Segs (test code = Segs) 78.2 45.0-75.0 [place] 783853-07-17 08:33:00 Test Item Value Reference Range Interpretation Comments Lymphocytes (test code = Lymphocytes) 10.9 20.0-40.0 [place] [address]-07-17 08:33:00 Test Item Value Reference Range Interpretation Comments Monocytes (test code = Monocytes) 10.1 2.0-12.0 [place] [address]-07-17 08:33:00 Test Item Value Reference Range Interpretation Comments Eosinophils (test code = Eosinophils) 0.5 <=4.0 [place] [address]-07-17 08:33:00 Test Item Value Reference Range Interpretation Comments Basophils (test code = Basophils) 0.3 <=1.0 [place] [address]-07-17 08:33:00 Test Item Value Reference Range Interpretation Comments Neutrophils # (test code = Neutrophils 4.7 1.5-8.1 #) [place] [address]-07-17 08:33:00 Test Item Value Reference Range Interpretation Comments Lymphocytes # (test code = Lymphocytes 0.7 1.0-5.5 #) [address]07-17 08:33:00 Test Item Value Reference Range Interpretation Comments Monocytes # (test code = Monocytes #) 0.6 <=0.8 [place] [address]-07-17 08:33:00 Test Item Value Reference Range Interpretation Comments WBC (test code = WBC) 6.0 3.7-10.4 [place] [address]-07-17 08:33:00 Test Item Value Reference Range Interpretation Comments RBC (test code = RBC) 2.91 4.20-5.40 [place] [address]-07-17 08:33:00 Test Item Value Reference Range Interpretation Comments Hgb (test code = Hgb) 8.3 12.0-16.0 [place] [address]-07-17 08:33:00 Test Item Value Reference Range Interpretation Comments Hct (test code = Hct) 25.8 36.0-48.0 [place] [address]-07-17 08:33:00 Test Item Value Reference Range Interpretation Comments MCV (test code = MCV) 88.5 80.0-98.0 [place] [address]-07-17 08:33:00 Test Item Value Reference Range Interpretation Comments MCH (test code = MCH) 28.6 pg 27.0-31.0 [place] [address]-07-17 08:33:00 Test Item Value Reference Range Interpretation Comments MCHC (test code = MCHC) 32.3 32.0-36.0 [place] 783853-07-17 08:33:00 Test Item Value Reference Range Interpretation Comments RDW (test code = RDW) 14.8 11.5-14.5 [place] [address]-07-17 08:33:00 Test Item Value Reference Range Interpretation Comments Platelet (test code = Platelet) 252 133-450 [facility]LsfpvcnBLSJSLGHMU2321-90-91 08:33:00 Test Item Value Reference Range Interpretation Comments MPV (test code = MPV) 7.7 7.4-10.4 [place] [address]-07-17 08:33:00 Test Item Value Reference Range Interpretation Comments Segs (test code = Segs) 78.2 45.0-75.0 [place] [address]-07-17 08:33:00 Test Item Value Reference Range Interpretation Comments Lymphocytes (test code = Lymphocytes) 10.9 20.0-40.0 [place] 783853-07-17 08:33:00 Test Item Value Reference Range Interpretation Comments Monocytes (test code = Monocytes) 10.1 2.0-12.0 [place] [address]-07-17 08:33:00 Test Item Value Reference Range Interpretation Comments Eosinophils (test code = Eosinophils) 0.5 <=4.0 [place] 783853-07-17 08:33:00 Test Item Value Reference Range Interpretation Comments Basophils (test code = Basophils) 0.3 <=1.0 [place] [address]-07-17 08:33:00 Test Item Value Reference Range Interpretation Comments Neutrophils # (test code = Neutrophils 4.7 1.5-8.1 #) [place] 783853-07-17 08:33:00 Test Item Value Reference Range Interpretation Comments Lymphocytes # (test code = Lymphocytes 0.7 1.0-5.5 #) [place] [address]-07-17 08:33:00 Test Item Value Reference Range Interpretation Comments Monocytes # (test code = Monocytes #) 0.6 <=0.8 [place] [address]-07-17 08:33:00 Test Item Value Reference Range Interpretation Comments WBC (test code = WBC) 6.0 3.7-10.4 [place] [address]-07-17 08:33:00 Test Item Value Reference Range Interpretation Comments RBC (test code = RBC) 2.91 4.20-5.40 [place] [address]-07-17 08:33:00 Test Item Value Reference Range Interpretation Comments Hgb (test code = Hgb) 8.3 12.0-16.0 [place] [address]-07-17 08:33:00 Test Item Value Reference Range Interpretation Comments Hct (test code = Hct) 25.8 36.0-48.0 [place] [address]-07-17 08:33:00 Test Item Value Reference Range Interpretation Comments MCV (test code = MCV) 88.5 80.0-98.0 [place] [address]-07-17 08:33:00 Test Item Value Reference Range Interpretation Comments MCH (test code = MCH) 28.6 pg 27.0-31.0 [place] [address]-07-17 08:33:00 Test Item Value Reference Range Interpretation Comments MCHC (test code = MCHC) 32.3 32.0-36.0 [place] [address]-07-17 08:33:00 Test Item Value Reference Range Interpretation Comments RDW (test code = RDW) 14.8 11.5-14.5 [place] [address]-07-17 08:33:00 Test Item Value Reference Range Interpretation Comments Platelet (test code = Platelet) 252 133-450 [place] 783853-07-17 08:33:00 Test Item Value Reference Range Interpretation Comments MPV (test code = MPV) 7.7 7.4-10.4 [place] 137583-07-17 08:33:00 Test Item Value Reference Range Interpretation Comments Glucose Lvl (test code = Glucose Lvl) 99 70-99 [facility] [place]2023-07-17 08:33:00 Test Item Value Reference Range Interpretation Comments BUN (test code = BUN) 20 7-22 [place] [address]-07-17 08:33:00 Test Item Value Reference Range Interpretation Comments Creatinine Lvl (test code = Creatinine 0.62 0.50-1.40 Lvl) [place] 137583-07-17 08:33:00 Test Item Value Reference Range Interpretation Comments Sodium Lvl (test code = Sodium Lvl) 135 135-145 [place] 137583-07-17 08:33:00 Test Item Value Reference Range Interpretation Comments Potassium Lvl (test code = Potassium 4.3 3.5-5.1 Lvl) [place] 137583-07-17 08:33:00 Test Item Value Reference Range Interpretation Comments Chloride Lvl (test code = Chloride Lvl) 100 95-109 [place] 137583-07-17 08:33:00 Test Item Value Reference Range Interpretation Comments CO2 (test code = CO2) 30 24-32 [place] 137583-07-17 08:33:00 Test Item Value Reference Range Interpretation Comments Calcium Lvl (test code = Calcium Lvl) 9.2 8.5-10.5 [place] 137583-07-17 08:33:00 Test Item Value Reference Range Interpretation Comments AGAP (test code = AGAP) 9.3 10.0-20.0 [place] 137583-07-17 08:33:00 Test Item Value Reference Range Interpretation Comments eGFR (test code = eGFR) 93 [place] [address]-07-17 08:33:00 Test Item Value Reference Range Interpretation Comments Glucose Lvl (test code = Glucose Lvl) 99 70-99 [place] 405823-07-17 08:33:00 Test Item Value Reference Range Interpretation Comments BUN (test code = BUN) 20 - [place] 405823-07-17 08:33:00 Test Item Value Reference Range Interpretation Comments Creatinine Lvl (test code = Creatinine 0.62 0.50-1.40 Lvl) [place] [address]-07-17 08:33:00 Test Item Value Reference Range Interpretation Comments Sodium Lvl (test code = Sodium Lvl) 135 135-145 [place] 137583-07-16 09:32:00 Test Item Value Reference Range Interpretation Comments Glucose Lvl (test code = Glucose Lvl) 97 70-99 [place] 137583-07-16 09:32:00 Test Item Value Reference Range Interpretation Comments BUN (test code = BUN) 21 7- [place] 137583-07-16 09:32:00 Test Item Value Reference Range Interpretation Comments Creatinine Lvl (test code = Creatinine 0.62 0.50-1.40 Lvl) [place] 137583-07-16 09:32:00 Test Item Value Reference Range Interpretation Comments Sodium Lvl (test code = Sodium Lvl) 137 135-145 [place] 137583-07-16 09:32:00 Test Item Value Reference Range Interpretation Comments Potassium Lvl (test code = Potassium 4.5 3.5-5.1 Lvl) [place] 137583-07-16 09:32:00 Test Item Value Reference Range Interpretation Comments Chloride Lvl (test code = Chloride Lvl) 104 95-109 [place] 137583-07-16 09:32:00 Test Item Value Reference Range Interpretation Comments CO2 (test code = CO2) 27 24-32 [place] 137583-07-16 09:32:00 Test Item Value Reference Range Interpretation Comments Calcium Lvl (test code = Calcium Lvl) 8.7 8.5-10.5 [place] 137583-07-16 09:32:00 Test Item Value Reference Range Interpretation Comments AGAP (test code = AGAP) 10.5 10.0-20.0 [place] 137583-07-16 09:32:00 Test Item Value Reference Range Interpretation Comments eGFR (test code = eGFR) 94 [place] 783853-07-16 09:32:00 Test Item Value Reference Range Interpretation Comments WBC (test code = WBC) 4.9 3.7-10.4 [place] [address]-07-16 09:32:00 Test Item Value Reference Range Interpretation Comments RBC (test code = RBC) 2.79 4.20-5.40 [place] [address]-07-16 09:32:00 Test Item Value Reference Range Interpretation Comments Hgb (test code = Hgb) 8.1 12.0-16.0 [place] [address]-07-16 09:32:00 Test Item Value Reference Range Interpretation Comments Hct (test code = Hct) 24.8 36.0-48.0 [place] [address]-07-16 09:32:00 Test Item Value Reference Range Interpretation Comments MCV (test code = MCV) 89.1 80.0-98.0 [place] [address]-07-16 09:32:00 Test Item Value Reference Range Interpretation Comments MCH (test code = MCH) 29.1 pg 27.0-31.0 [facility]uoewyaVDMMCSWHVF9863[facility]99-18 09:32:00 Test Item Value Reference Range Interpretation Comments MCHC (test code = MCHC) 32.7 32.0-36.0 [facility] CenterBaqovluJEUGXLIOUX2318-55-49 09:32:00 Test Item Value Reference Range Interpretation Comments RDW (test code = RDW) 14.7 11.5-14.5 [place] 783853-07-16 09:32:00 Test Item Value Reference Range Interpretation Comments Platelet (test code = Platelet) 207 133-450 [facility]QlurrbvVHDWVOVHKO8804-54-19 09:32:00 Test Item Value Reference Range Interpretation Comments MPV (test code = MPV) 7.9 7.4-10.4 [facility] CenterUveaitsUZJKIOZYMY1490-68-32 09:32:00 Test Item Value Reference Range Interpretation Comments Segs (test code = Segs) 70.2 45.0-75.0 [facility] CenterKiewnioIPMUPGZDJK0974-95-28 09:32:00 Test Item Value Reference Range Interpretation Comments Lymphocytes (test code = Lymphocytes) 14.6 20.0-40.0 [facility] CenterHlwjbuhLSBLXKBDMU7292-00-39 09:32:00 Test Item Value Reference Range Interpretation Comments Monocytes (test code = Monocytes) 11.9 2.0-12.0 [facility] CenterCfajixcKQVJFKGCDO5883-75-29 09:32:00 Test Item Value Reference Range Interpretation Comments Eosinophils (test code = Eosinophils) 2.5 <=4.0 [facility] CenterCfupzrcKCMUYYXOEN3795-93-32 09:32:00 Test Item Value Reference Range Interpretation Comments Basophils (test code = Basophils) 0.8 <=1.0 [place] 783853-07-16 09:32:00 Test Item Value Reference Range Interpretation Comments Neutrophils # (test code = Neutrophils 3.4 1.5-8.1 #) [facility] CenterUkonqtmWILCAIWMWX7363-08-53 09:32:00 Test Item Value Reference Range Interpretation Comments Lymphocytes # (test code = Lymphocytes 0.7 1.0-5.5 #) [facility] CenterMcsgirfEXWPXBDQLX7456-34-23 09:32:00 Test Item Value Reference Range Interpretation Comments Monocytes # (test code = Monocytes #) 0.6 <=0.8 [place] [address]-07-16 09:32:00 Test Item Value Reference Range Interpretation Comments Eosinophils # (test code = Eosinophils 0.1 <=0.5 #) [place] [address]-07-16 09:32:00 Test Item Value Reference Range Interpretation Comments Eosinophils # (test code = Eosinophils 0.1 <=0.5 #) [place] 137583-07-16 09:32:00 Test Item Value Reference Range Interpretation Comments Glucose Lvl (test code = Glucose Lvl) 97 70-99 [place] [address]-07-16 09:32:00 Test Item Value Reference Range Interpretation Comments BUN (test code = BUN) 21 7-22 [place] 137583-07-16 09:32:00 Test Item Value Reference Range Interpretation Comments Creatinine Lvl (test code = Creatinine 0.62 0.50-1.40 Lvl) [place] [address]-07-16 09:32:00 Test Item Value Reference Range Interpretation Comments Sodium Lvl (test code = Sodium Lvl) 137 135-145 [place] [address]-07-16 09:32:00 Test Item Value Reference Range Interpretation Comments Potassium Lvl (test code = Potassium 4.5 3.5-5.1 Lvl) [place] 137583-07-16 09:32:00 Test Item Value Reference Range Interpretation Comments Chloride Lvl (test code = Chloride Lvl) 104 95-109 [place] 137583-07-16 09:32:00 Test Item Value Reference Range Interpretation Comments CO2 (test code = CO2) 27 24-32 [place] [address]-07-16 09:32:00 Test Item Value Reference Range Interpretation Comments Calcium Lvl (test code = Calcium Lvl) 8.7 8.5-10.5 [place] [address]-07-16 09:32:00 Test Item Value Reference Range Interpretation Comments AGAP (test code = AGAP) 10.5 10.0-20.0 [place] [address]-07-16 09:32:00 Test Item Value Reference Range Interpretation Comments eGFR (test code = eGFR) 94 [place] [address]-07-16 09:32:00 Test Item Value Reference Range Interpretation Comments WBC (test code = WBC) 4.9 3.7-10.4 [facility] CenterBjbzyepXPTZPCUGDX7897-90-24 09:32:00 Test Item Value Reference Range Interpretation Comments RBC (test code = RBC) 2.79 4.20-5.40 [place] 783853-07-16 09:32:00 Test Item Value Reference Range Interpretation Comments Hgb (test code = Hgb) 8.1 12.0-16.0 [facility] CenterJnwhzlcWYMAIGXDJK9326-06-51 09:32:00 Test Item Value Reference Range Interpretation Comments Hct (test code = Hct) 24.8 36.0-48.0 [facility] CenterLshjgoqLEDMNTVYYO3252-00-71 09:32:00 Test Item Value Reference Range Interpretation Comments MCV (test code = MCV) 89.1 80.0-98.0 [facility] CenterEjuepsxRMNXZYAPJS3250-90-29 09:32:00 Test Item Value Reference Range Interpretation Comments MCH (test code = MCH) 29.1 pg 27.0-31.0 [facility] CenterQfkdlgaZGRJQBDJLZ0240-75-78 09:32:00 Test Item Value Reference Range Interpretation Comments MCHC (test code = MCHC) 32.7 32.0-36.0 [facility] CenterAiryxphRWWDYRWQFF6787-65-99 09:32:00 Test Item Value Reference Range Interpretation Comments RDW (test code = RDW) 14.7 11.5-14.5 [facility] CenterYqrwzxwUOFWQNLACA2524-96-98 09:32:00 Test Item Value Reference Range Interpretation Comments Platelet (test code = Platelet) 207 133-450 [facility] CenterNmbmcueKRSJNQEYPC5795-89-61 09:32:00 Test Item Value Reference Range Interpretation Comments MPV (test code = MPV) 7.9 7.4-10.4 [place] 783853-07-16 09:32:00 Test Item Value Reference Range Interpretation Comments Segs (test code = Segs) 70.2 45.0-75.0 [facility] CenterNcdbfziUKDLOJDTYC4771-04-46 09:32:00 Test Item Value Reference Range Interpretation Comments Lymphocytes (test code = Lymphocytes) 14.6 20.0-40.0 [facility]28[facility]-78 09:32:00 Test Item Value Reference Range Interpretation Comments Monocytes (test code = Monocytes) 11.9 2.0-12.0 [place] [address]-07-16 09:32:00 Test Item Value Reference Range Interpretation Comments Eosinophils (test code = Eosinophils) 2.5 <=4.0 [place] [address]-07-16 09:32:00 Test Item Value Reference Range Interpretation Comments Basophils (test code = Basophils) 0.8 <=1.0 [place] [address]-07-16 09:32:00 Test Item Value Reference Range Interpretation Comments Neutrophils # (test code = Neutrophils 3.4 1.5-8.1 #) [place] [address]-07-16 09:32:00 Test Item Value Reference Range Interpretation Comments Lymphocytes # (test code = Lymphocytes 0.7 1.0-5.5 #) [place] [address]-07-16 09:32:00 Test Item Value Reference Range Interpretation Comments Monocytes # (test code = Monocytes #) 0.6 <=0.8 [place] [address]-07-16 09:32:00 Test Item Value Reference Range Interpretation Comments Eosinophils # (test code = Eosinophils 0.1 <=0.5 #) [place] [address]-07-16 09:32:00 Test Item Value Reference Range Interpretation Comments Eosinophils # (test code = Eosinophils 0.1 <=0.5 #) [place] 137583-07-16 09:32:00 Test Item Value Reference Range Interpretation Comments Glucose Lvl (test code = Glucose Lvl) 97 70-99 [place] 137583-07-16 09:32:00 Test Item Value Reference Range Interpretation Comments BUN (test code = BUN) 21 7-22 [place] [address]-07-16 09:32:00 Test Item Value Reference Range Interpretation Comments Creatinine Lvl (test code = Creatinine 0.62 0.50-1.40 Lvl) [place] [address]-07-16 09:32:00 Test Item Value Reference Range Interpretation Comments Sodium Lvl (test code = Sodium Lvl) 137 135-145 [place] [address]-07-16 09:32:00 Test Item Value Reference Range Interpretation Comments Potassium Lvl (test code = Potassium 4.5 3.5-5.1 Lvl) [place] [address]-07-16 09:32:00 Test Item Value Reference Range Interpretation Comments Chloride Lvl (test code = Chloride Lvl) 104 95-109 [place] 137583-07-16 09:32:00 Test Item Value Reference Range Interpretation Comments CO2 (test code = CO2) 27 24-32 [place] 137583-07-16 09:32:00 Test Item Value Reference Range Interpretation Comments Calcium Lvl (test code = Calcium Lvl) 8.7 8.5-10.5 [place] 137583-07-16 09:32:00 Test Item Value Reference Range Interpretation Comments AGAP (test code = AGAP) 10.5 10.0-20.0 [place] 137583-07-16 09:32:00 Test Item Value Reference Range Interpretation Comments eGFR (test code = eGFR) 94 [place] 783853-07-16 09:32:00 Test Item Value Reference Range Interpretation Comments WBC (test code = WBC) 4.9 3.7-10.4 [place] [address]-07-16 09:32:00 Test Item Value Reference Range Interpretation Comments RBC (test code = RBC) 2.79 4.20-5.40 [place] [address]-07-16 09:32:00 Test Item Value Reference Range Interpretation Comments Hgb (test code = Hgb) 8.1 12.0-16.0 [place] [address]-07-16 09:32:00 Test Item Value Reference Range Interpretation Comments Hct (test code = Hct) 24.8 36.0-48.0 [place] [address]-07-16 09:32:00 Test Item Value Reference Range Interpretation Comments MCV (test code = MCV) 89.1 80.0-98.0 [place] [address]-07-16 09:32:00 Test Item Value Reference Range Interpretation Comments MCH (test code = MCH) 29.1 pg 27.0-31.0 [place] [address]-07-16 09:32:00 Test Item Value Reference Range Interpretation Comments MCHC (test code = MCHC) 32.7 32.0-36.0 [place] [address]-07-16 09:32:00 Test Item Value Reference Range Interpretation Comments RDW (test code = RDW) 14.7 11.5-14.5 [place] 783853-07-16 09:32:00 Test Item Value Reference Range Interpretation Comments Platelet (test code = Platelet) 207 133-450 [place] 783853-07-16 09:32:00 Test Item Value Reference Range Interpretation Comments MPV (test code = MPV) 7.9 7.4-10.4 [place] 783853-07-16 09:32:00 Test Item Value Reference Range Interpretation Comments Segs (test code = Segs) 70.2 45.0-75.0 [place] 783853-07-16 09:32:00 Test Item Value Reference Range Interpretation Comments Lymphocytes (test code = Lymphocytes) 14.6 20.0-40.0 [place] [address]-07-16 09:32:00 Test Item Value Reference Range Interpretation Comments Monocytes (test code = Monocytes) 11.9 2.0-12.0 [place] 783853-07-16 09:32:00 Test Item Value Reference Range Interpretation Comments Eosinophils (test code = 2.5 See_Comment [A utomated message] The Eosinophils) system which ge nerated this result tra nsmitted reference range : <=4.0. The reference r vasile was not used to int erpret this result as normal/abnormal . [place] 783853-07-16 09:32:00 Test Item Value Reference Range Interpretation Comments Basophils (test code = 0.8 See_Comment [Aut omated message] The Basophils) system which ge nerated this result tra nsmitted reference range : <=1.0. The reference r vasile was not used to int erpret this result as normal/abnormal . [facility]cohBFB[facility]CX[facility]WW[facility] 09:32:00 Test Item Value Reference Range Interpretation Comments Neutrophils # (test code = Neutrophils 3.4 1.5-8.1 #) [place] [address]-07-16 09:32:00 Test Item Value Reference Range Interpretation Comments Lymphocytes # (test code = Lymphocytes 0.7 1.0-5.5 #) [place] [address]-07-16 09:32:00 Test Item Value Reference Range Interpretation Comments Monocytes # (test code 0.6 See_Comment [Aut omated message] The = Monocytes #) system which generated this result tra nsmitted reference range : <=0.8. The reference r vasile was not used to int erpret this result as normal/abnormal . [place] [address]-07-16 09:32:00 Test Item Value Reference Range Interpretation Comments Eosinophils # (test code 0.1 See_Comment [A utomated message] The = Eosinophils #) system [employer] generated this result tra nsmitted reference range : <=0.5. The reference r vasile was not used to int erpret this result as normal/abnormal . [place] [address]-07-16 09:32:00 Test Item Value Reference Range Interpretation Comments Eosinophils # (test code 0.1 See_Comment [A utomated message] The = Eosinophils #) system [employer] generated this result tra nsmitted reference range : <=0.5. The reference r vasile was not used to int erpret this result as normal/abnormal . [place] [address]-07-16 09:32:00 Test Item Value Reference Range Interpretation Comments Glucose Lvl (test code = Glucose Lvl) 97 70-99 [place] [address]-07-16 09:32:00 Test Item Value Reference Range Interpretation Comments BUN (test code = BUN) 21 7-22 [place] [address]-07-16 09:32:00 Test Item Value Reference Range Interpretation Comments Creatinine Lvl (test code = Creatinine 0.62 0.50-1.40 Lvl) [place] [address]-07-16 09:32:00 Test Item Value Reference Range Interpretation Comments Sodium Lvl (test code = Sodium Lvl) 137 135-145 [place] [address]-07-16 09:32:00 Test Item Value Reference Range Interpretation Comments Potassium Lvl (test code = Potassium 4.5 3.5-5.1 Lvl) [place] [address]-07-16 09:32:00 Test Item Value Reference Range Interpretation Comments Chloride Lvl (test code = Chloride Lvl) 104 95-109 [place] [address]-07-16 09:32:00 Test Item Value Reference Range Interpretation Comments CO2 (test code = CO2) 27 24-32 [place] [address]-07-16 09:32:00 Test Item Value Reference Range Interpretation Comments Calcium Lvl (test code = Calcium Lvl) 8.7 8.5-10.5 [facility]2023-07-16 09:32:00 Test Item Value Reference Range Interpretation Comments AGAP (test code = AGAP) 10.5 10.0-20.0 [facility]2023-07-16 09:32:00 Test Item Value Reference Range Interpretation Comments eGFR (test code = eGFR) 94 [facility]ieguNKKSKWIUPN7071[facility]11-43 09:32:00 Test Item Value Reference Range Interpretation Comments WBC (test code = WBC) 4.9 3.7-10.4 [facility]QxhtybuXDFONGKTCP2032-36-86 09:32:00 Test Item Value Reference Range Interpretation Comments RBC (test code = RBC) 2.79 4.20-5.40 [place] 783853-07-16 09:32:00 Test Item Value Reference Range Interpretation Comments Hgb (test code = Hgb) 8.1 12.0-16.0 [place] 783853-07-16 09:32:00 Test Item Value Reference Range Interpretation Comments Hct (test code = Hct) 24.8 36.0-48.0 [facility]PnopaylCAFTAGSHQK8234-16-53 09:32:00 Test Item Value Reference Range Interpretation Comments MCV (test code = MCV) 89.1 80.0-98.0 [facility] CenterQogrbujIGHOCVLYFQ8492-97-56 09:32:00 Test Item Value Reference Range Interpretation Comments MCH (test code = MCH) 29.1 pg 27.0-31.0 [place] 783853-07-16 09:32:00 Test Item Value Reference Range Interpretation Comments MCHC (test code = MCHC) 32.7 32.0-36.0 [place] [address]-07-16 09:32:00 Test Item Value Reference Range Interpretation Comments RDW (test code = RDW) 14.7 11.5-14.5 [facility] CenterKzbwnwrOOCPMZCWRM2951-42-45 09:32:00 Test Item Value Reference Range Interpretation Comments Platelet (test code = Platelet) 207 133-450 [facility] CenterBedlgheMCBILXUXVT3999-94-49 09:32:00 Test Item Value Reference Range Interpretation Comments MPV (test code = MPV) 7.9 7.4-10.4 [place] 783853-07-16 09:32:00 Test Item Value Reference Range Interpretation Comments Segs (test code = Segs) 70.2 45.0-75.0 [place] 783853-07-16 09:32:00 Test Item Value Reference Range Interpretation Comments Lymphocytes (test code = Lymphocytes) 14.6 20.0-40.0 [place] 783853-07-16 09:32:00 Test Item Value Reference Range Interpretation Comments Monocytes (test code = Monocytes) 11.9 2.0-12.0 [place] [address]-07-16 09:32:00 Test Item Value Reference Range Interpretation Comments Eosinophils (test code = 2.5 See_Comment [A utomated message] The Eosinophils) system which ge nerated this result tra nsmitted reference range : <=4.0. The reference r vasile was not used to int erpret this result as normal/abnormal . [place] 783853-07-16 09:32:00 Test Item Value Reference Range Interpretation Comments Basophils (test code = 0.8 See_Comment [Aut omated message] The Basophils) system which ge nerated this result tra nsmitted reference range : <=1.0. The reference r vasile was not used to int erpret this result as normal/abnormal . [facility] CenterTbdpzzhUSRRJAJGZY8146-94-37 09:32:00 Test Item Value Reference Range Interpretation Comments Neutrophils # (test code = Neutrophils 3.4 1.5-8.1 #) [place] 783853-07-16 09:32:00 Test Item Value Reference Range Interpretation Comments Lymphocytes # (test code = Lymphocytes 0.7 1.0-5.5 #) [place] 783853-07-16 09:32:00 Test Item Value Reference Range Interpretation Comments Monocytes # (test code 0.6 See_Comment [Aut omated message] The = Monocytes #) system which generated this result tra nsmitted reference range : <=0.8. The reference r vasile was not used to int erpret this result as normal/abnormal . [place] 783853-07-16 09:32:00 Test Item Value Reference Range Interpretation Comments Eosinophils # (test code 0.1 See_Comment [A utomated message] The = Eosinophils #) system whic h generated this result tra nsmitted reference range : <=0.5. The reference r vasile was not used to int erpret this result as normal/abnormal . [place] 783853-07-16 09:32:00 Test Item Value Reference Range Interpretation Comments Eosinophils # (test code 0.1 See_Comment [A utomated message] The = Eosinophils #) system [employer] generated this result tra nsmitted reference range : <=0.5. The reference r vasile was not used to int erpret this result as normal/abnormal . [place] 137583-07-16 09:32:00 Test Item Value Reference Range Interpretation Comments Glucose Lvl (test code = Glucose Lvl) 97 70-99 [place] [address]-07-16 09:32:00 Test Item Value Reference Range Interpretation Comments BUN (test code = BUN) 21 7-22 [place] [address]-07-16 09:32:00 Test Item Value Reference Range Interpretation Comments Creatinine Lvl (test code = Creatinine 0.62 0.50-1.40 Lvl) [place] 137583-07-16 09:32:00 Test Item Value Reference Range Interpretation Comments Sodium Lvl (test code = Sodium Lvl) 137 135-145 [place] [address]-07-16 09:32:00 Test Item Value Reference Range Interpretation Comments Potassium Lvl (test code = Potassium 4.5 3.5-5.1 Lvl) [place] [address]-07-16 09:32:00 Test Item Value Reference Range Interpretation Comments Chloride Lvl (test code = Chloride Lvl) 104 95-109 [place] [address]-07-16 09:32:00 Test Item Value Reference Range Interpretation Comments CO2 (test code = CO2) 27 24-32 [place] [address]-07-16 09:32:00 Test Item Value Reference Range Interpretation Comments Calcium Lvl (test code = Calcium Lvl) 8.7 8.5-10.5 [place] [address]-07-16 09:32:00 Test Item Value Reference Range Interpretation Comments AGAP (test code = AGAP) 10.5 10.0-20.0 [place] 137583-07-16 09:32:00 Test Item Value Reference Range Interpretation Comments eGFR (test code = eGFR) [address]07-16 09:32:00 Test Item Value Reference Range Interpretation Comments WBC (test code = WBC) 4.9 3.7-10.4 [place] 783853-07-16 09:32:00 Test Item Value Reference Range Interpretation Comments RBC (test code = RBC) 2.79 4.20-5.40 [place] 783853-07-16 09:32:00 Test Item Value Reference Range Interpretation Comments Hgb (test code = Hgb) 8.1 12.0-16.0 [place] [address]-07-16 09:32:00 Test Item Value Reference Range Interpretation Comments Hct (test code = Hct) 24.8 36.0-48.0 [place] 783853-07-16 09:32:00 Test Item Value Reference Range Interpretation Comments MCV (test code = MCV) 89.1 80.0-98.0 [place] 783853-07-16 09:32:00 Test Item Value Reference Range Interpretation Comments MCH (test code = MCH) 29.1 pg 27.0-31.0 [place] 783853-07-16 09:32:00 Test Item Value Reference Range Interpretation Comments MCHC (test code = MCHC) 32.7 32.0-36.0 [facility]FyrxqusGNCNTWPYEE5040-15-03 09:32:00 Test Item Value Reference Range Interpretation Comments RDW (test code = RDW) 14.7 11.5-14.5 [place] 783853-07-16 09:32:00 Test Item Value Reference Range Interpretation Comments Platelet (test code = Platelet) 207 133-450 [place] 783853-07-16 09:32:00 Test Item Value Reference Range Interpretation Comments MPV (test code = MPV) 7.9 7.4-10.4 [place] [address]-07-16 09:32:00 Test Item Value Reference Range Interpretation Comments Segs (test code = Segs) 70.2 45.0-75.0 [place] [address]-07-16 09:32:00 Test Item Value Reference Range Interpretation Comments Lymphocytes (test code = Lymphocytes) 14.6 20.0-40.0 [place] [address]-07-16 09:32:00 Test Item Value Reference Range Interpretation Comments Monocytes (test code = Monocytes) 11.9 2.0-12.0 [place] [address]-07-16 09:32:00 Test Item Value Reference Range Interpretation Comments Eosinophils (test code = Eosinophils) 2.5 <=4.0 [place] 783853-07-16 09:32:00 Test Item Value Reference Range Interpretation Comments Basophils (test code = Basophils) 0.8 <=1.0 [place] [address]-07-16 09:32:00 Test Item Value Reference Range Interpretation Comments Neutrophils # (test code = Neutrophils 3.4 1.5-8.1 #) [place] 783853-07-16 09:32:00 Test Item Value Reference Range Interpretation Comments Lymphocytes # (test code = Lymphocytes 0.7 1.0-5.5 #) [place] 783853-07-16 09:32:00 Test Item Value Reference Range Interpretation Comments Monocytes # (test code = Monocytes #) 0.6 <=0.8 [place] [address]-07-16 09:32:00 Test Item Value Reference Range Interpretation Comments Eosinophils # (test code = Eosinophils 0.1 <=0.5 #) [place] 783853-07-16 09:32:00 Test Item Value Reference Range Interpretation Comments Eosinophils # (test code = Eosinophils 0.1 <=0.5 #) [place] 137583-07-15 08:40:00 Test Item Value Reference Range Interpretation Comments Glucose Lvl (test code = Glucose Lvl) 92 70-99 [place] 137583-07-15 08:40:00 Test Item Value Reference Range Interpretation Comments BUN (test code = BUN) 24 7-22 [place] 137583-07-15 08:40:00 Test Item Value Reference Range Interpretation Comments Creatinine Lvl (test code = Creatinine 0.59 0.50-1.40 Lvl) [place] 137583-07-15 08:40:00 Test Item Value Reference Range Interpretation Comments Sodium Lvl (test code = Sodium Lvl) 139 135-145 [place] 137583-07-15 08:40:00 Test Item Value Reference Range Interpretation Comments Potassium Lvl (test code = Potassium 4.3 3.5-5.1 Lvl) [place] [address]-07-15 08:40:00 Test Item Value Reference Range Interpretation Comments Chloride Lvl (test code = Chloride Lvl) 108 95-109 [place] [address]-07-15 08:40:00 Test Item Value Reference Range Interpretation Comments CO2 (test code = CO2) 28 24-32 [place] [address]-07-15 08:40:00 Test Item Value Reference Range Interpretation Comments AGAP (test code = AGAP) 7.3 10.0-20.0 [place] [address]-07-15 08:40:00 Test Item Value Reference Range Interpretation Comments Calcium Lvl (test code = Calcium Lvl) 8.7 8.5-10.5 [place] 137583-07-15 08:40:00 Test Item Value Reference Range Interpretation Comments eGFR (test code = eGFR) 94 [place] [address]-07-15 08:40:00 Test Item Value Reference Range Interpretation Comments Segs (test code = Segs) 67.2 45.0-75.0 [place] [address]-07-15 08:40:00 Test Item Value Reference Range Interpretation Comments Lymphocytes (test code = Lymphocytes) 18.0 20.0-40.0 [place] [address]-07-15 08:40:00 Test Item Value Reference Range Interpretation Comments Monocytes (test code = Monocytes) 10.3 2.0-12.0 [place] [address]-07-15 08:40:00 Test Item Value Reference Range Interpretation Comments Eosinophils (test code = Eosinophils) 3.7 <=4.0 [place] [address]-07-15 08:40:00 Test Item Value Reference Range Interpretation Comments Basophils (test code = Basophils) 0.8 <=1.0 [place] [address]-07-15 08:40:00 Test Item Value Reference Range Interpretation Comments Neutrophils # (test code = Neutrophils 3.0 1.5-8.1 #) [place] [address]-07-15 08:40:00 Test Item Value Reference Range Interpretation Comments Lymphocytes # (test code = Lymphocytes 0.8 1.0-5.5 #) [place] [address]-07-15 08:40:00 Test Item Value Reference Range Interpretation Comments Monocytes # (test code = Monocytes #) 0.5 <=0.8 [place] 783853-07-15 08:40:00 Test Item Value Reference Range Interpretation Comments Eosinophils # (test code = Eosinophils 0.2 <=0.5 #) [place] 783853-07-15 08:40:00 Test Item Value Reference Range Interpretation Comments Sed Rate (test code = Sed Rate) 81 <=20 [place] [address]-07-15 08:40:00 Test Item Value Reference Range Interpretation Comments WBC (test code = WBC) 4.5 3.7-10.4 [place] 783853-07-15 08:40:00 Test Item Value Reference Range Interpretation Comments RBC (test code = RBC) 3.07 4.20-5.40 [place] 783853-07-15 08:40:00 Test Item Value Reference Range Interpretation Comments Hgb (test code = Hgb) 9.0 12.0-16.0 [place] 783853-07-15 08:40:00 Test Item Value Reference Range Interpretation Comments Hct (test code = Hct) 27.2 36.0-48.0 [place] 783853-07-15 08:40:00 Test Item Value Reference Range Interpretation Comments MCV (test code = MCV) 88.5 80.0-98.0 [facility]ledflxEAKQKGTLKX4495-21-16 08:40:00 Test Item Value Reference Range Interpretation Comments MCH (test code = MCH) 29.2 pg 27.0-31.0 [facility]IkqprefQJETVUDYOL3532-30-16 08:40:00 Test Item Value Reference Range Interpretation Comments MCHC (test code = MCHC) 33.0 32.0-36.0 [place] 783853-07-15 08:40:00 Test Item Value Reference Range Interpretation Comments RDW (test code = RDW) 15.2 11.5-14.5 [place] 783853-07-15 08:40:00 Test Item Value Reference Range Interpretation Comments Platelet (test code = Platelet) 176 133-450 [facility]XcathfiYTGIKSINAI6629-59-57 08:40:00 Test Item Value Reference Range Interpretation Comments MPV (test code = MPV) 7.6 7.4-10.4 [place] 783853-07-15 08:40:00 Test Item Value Reference Range Interpretation Comments Sed Rate (test code = Sed Rate) 81 <=20 [place] [address]-07-15 08:40:00 Test Item Value Reference Range Interpretation Comments Glucose Lvl (test code = Glucose Lvl) 92 70-99 [place] [address]-07-15 08:40:00 Test Item Value Reference Range Interpretation Comments BUN (test code = BUN) 24 7-22 [place] [address]-07-15 08:40:00 Test Item Value Reference Range Interpretation Comments Creatinine Lvl (test code = Creatinine 0.59 0.50-1.40 Lvl) [place] [address]-07-15 08:40:00 Test Item Value Reference Range Interpretation Comments Sodium Lvl (test code = Sodium Lvl) 139 135-145 [place] [address]-07-15 08:40:00 Test Item Value Reference Range Interpretation Comments Potassium Lvl (test code = Potassium 4.3 3.5-5.1 Lvl) [place] [address]-07-15 08:40:00 Test Item Value Reference Range Interpretation Comments Chloride Lvl (test code = Chloride Lvl) 108 95-109 [place] [address]-07-15 08:40:00 Test Item Value Reference Range Interpretation Comments CO2 (test code = CO2) 28 24-32 [place] [address]-07-15 08:40:00 Test Item Value Reference Range Interpretation Comments AGAP (test code = AGAP) 7.3 10.0-20.0 [place] [address]-07-15 08:40:00 Test Item Value Reference Range Interpretation Comments Calcium Lvl (test code = Calcium Lvl) 8.7 8.5-10.5 [place] [address]-07-15 08:40:00 Test Item Value Reference Range Interpretation Comments eGFR (test code = eGFR) 94 [place] [address]-07-15 08:40:00 Test Item Value Reference Range Interpretation Comments Segs (test code = Segs) 67.2 45.0-75.0 [place] [address]-07-15 08:40:00 Test Item Value Reference Range Interpretation Comments Lymphocytes (test code = Lymphocytes) 18.0 20.0-40.0 [place] [address]-07-15 08:40:00 Test Item Value Reference Range Interpretation Comments Monocytes (test code = Monocytes) 10.3 2.0-12.0 [place] [address]-07-15 08:40:00 Test Item Value Reference Range Interpretation Comments Eosinophils (test code = Eosinophils) 3.7 <=4.0 [place] [address]-07-15 08:40:00 Test Item Value Reference Range Interpretation Comments Basophils (test code = Basophils) 0.8 <=1.0 [place] [address]-07-15 08:40:00 Test Item Value Reference Range Interpretation Comments Neutrophils # (test code = Neutrophils 3.0 1.5-8.1 #) [place] [address]-07-15 08:40:00 Test Item Value Reference Range Interpretation Comments Lymphocytes # (test code = Lymphocytes 0.8 1.0-5.5 #) [place] [address]-07-15 08:40:00 Test Item Value Reference Range Interpretation Comments Monocytes # (test code = Monocytes #) 0.5 <=0.8 [place] [address]-07-15 08:40:00 Test Item Value Reference Range Interpretation Comments Eosinophils # (test code = Eosinophils 0.2 <=0.5 #) [place] [address]-07-15 08:40:00 Test Item Value Reference Range Interpretation Comments Sed Rate (test code = Sed Rate) 81 <=20 [place] [address]-07-15 08:40:00 Test Item Value Reference Range Interpretation Comments WBC (test code = WBC) 4.5 3.7-10.4 [place] [address]-07-15 08:40:00 Test Item Value Reference Range Interpretation Comments RBC (test code = RBC) 3.07 4.20-5.40 [place] [address]-07-15 08:40:00 Test Item Value Reference Range Interpretation Comments Hgb (test code = Hgb) 9.0 12.0-16.0 [place] [address]-07-15 08:40:00 Test Item Value Reference Range Interpretation Comments Hct (test code = Hct) 27.2 36.0-48.0 [place] [address]-07-15 08:40:00 Test Item Value Reference Range Interpretation Comments MCV (test code = MCV) 88.5 80.0-98.0 [place] [address]-07-15 08:40:00 Test Item Value Reference Range Interpretation Comments MCH (test code = MCH) 29.2 pg 27.0-31.0 [place] [address]-07-15 08:40:00 Test Item Value Reference Range Interpretation Comments MCHC (test code = MCHC) 33.0 32.0-36.0 [place] [address]-07-15 08:40:00 Test Item Value Reference Range Interpretation Comments RDW (test code = RDW) 15.2 11.5-14.5 [place] [address]-07-15 08:40:00 Test Item Value Reference Range Interpretation Comments Platelet (test code = Platelet) 176 133-450 [place] [address]-07-15 08:40:00 Test Item Value Reference Range Interpretation Comments MPV (test code = MPV) 7.6 7.4-10.4 [place] [address]-07-15 08:40:00 Test Item Value Reference Range Interpretation Comments Sed Rate (test code = Sed Rate) 81 <=20 [place] 137583-07-15 08:40:00 Test Item Value Reference Range Interpretation Comments Glucose Lvl (test code = Glucose Lvl) 92 70-99 [place] 137583-07-15 08:40:00 Test Item Value Reference Range Interpretation Comments BUN (test code = BUN) 24 7-22 [place] [address]-07-15 08:40:00 Test Item Value Reference Range Interpretation Comments Creatinine Lvl (test code = Creatinine 0.59 0.50-1.40 Lvl) [place] 137583-07-15 08:40:00 Test Item Value Reference Range Interpretation Comments Sodium Lvl (test code = Sodium Lvl) 139 135-145 [place] 137583-07-15 08:40:00 Test Item Value Reference Range Interpretation Comments Potassium Lvl (test code = Potassium 4.3 3.5-5.1 Lvl) [place] 137583-07-15 08:40:00 Test Item Value Reference Range Interpretation Comments Chloride Lvl (test code = Chloride Lvl) 108 95-109 [place] 137583-07-15 08:40:00 Test Item Value Reference Range Interpretation Comments CO2 (test code = CO2) 28 24-32 [place] [address]-07-15 08:40:00 Test Item Value Reference Range Interpretation Comments AGAP (test code = AGAP) 7.3 10.0-20.0 [place] [address]-07-15 08:40:00 Test Item Value Reference Range Interpretation Comments Calcium Lvl (test code = Calcium Lvl) 8.7 8.5-10.5 [place] [address]-07-15 08:40:00 Test Item Value Reference Range Interpretation Comments eGFR (test code = eGFR) 94 [place] [address]-07-15 08:40:00 Test Item Value Reference Range Interpretation Comments Segs (test code = Segs) 67.2 45.0-75.0 [place] [address]-07-15 08:40:00 Test Item Value Reference Range Interpretation Comments Lymphocytes (test code = Lymphocytes) 18.0 20.0-40.0 [place] [address]-07-15 08:40:00 Test Item Value Reference Range Interpretation Comments Monocytes (test code = Monocytes) 10.3 2.0-12.0 [place] [address]-07-15 08:40:00 Test Item Value Reference Range Interpretation Comments Eosinophils (test code = 3.7 See_Comment [A utomated message] The Eosinophils) system which ge nerated this result tra nsmitted reference range : <=4.0. The reference r vasile was not used to int erpret this result as normal/abnormal . [place] [address]-07-15 08:40:00 Test Item Value Reference Range Interpretation Comments Basophils (test code = 0.8 See_Comment [Aut omated message] The Basophils) system which ge nerated this result tra nsmitted reference range : <=1.0. The reference r vasile was not used to int erpret this result as normal/abnormal . [place] [address]-07-15 08:40:00 Test Item Value Reference Range Interpretation Comments Neutrophils # (test code = Neutrophils 3.0 1.5-8.1 #) [place] [address]-07-15 08:40:00 Test Item Value Reference Range Interpretation Comments Lymphocytes # (test code = Lymphocytes 0.8 1.0-5.5 #) [place] [address]-07-15 08:40:00 Test Item Value Reference Range Interpretation Comments Monocytes # (test code 0.5 See_Comment [Aut omated message] The = Monocytes #) system which generated this result tra nsmitted reference range : <=0.8. The reference r vasile was not used to int erpret this result as normal/abnormal . [place] 783853-07-15 08:40:00 Test Item Value Reference Range Interpretation Comments Eosinophils # (test code 0.2 See_Comment [A utomated message] The = Eosinophils #) system whic h generated this result tra nsmitted reference range : <=0.5. The reference r vasile was not used to int erpret this result as normal/abnormal . [place] 783853-07-15 08:40:00 Test Item Value Reference Range Interpretation Comments Sed Rate (test code = 81 See_Comment [Auto mated message] The Sed Rate) system which ge nerated this result transmit timmy reference range : <=20. The reference range was not used to interpr et this result as katja l/abnormal. [place] 783853-07-15 08:40:00 Test Item Value Reference Range Interpretation Comments WBC (test code = WBC) 4.5 3.7-10.4 [place] [address]-07-15 08:40:00 Test Item Value Reference Range Interpretation Comments RBC (test code = RBC) 3.07 4.20-5.40 [place] 783853-07-15 08:40:00 Test Item Value Reference Range Interpretation Comments Hgb (test code = Hgb) 9.0 12.0-16.0 [place] [address]-07-15 08:40:00 Test Item Value Reference Range Interpretation Comments Hct (test code = Hct) 27.2 36.0-48.0 [place] [address]-07-15 08:40:00 Test Item Value Reference Range Interpretation Comments MCV (test code = MCV) 88.5 80.0-98.0 [place] [address]-07-15 08:40:00 Test Item Value Reference Range Interpretation Comments MCH (test code = MCH) 29.2 pg 27.0-31.0 [place] [address]-07-15 08:40:00 Test Item Value Reference Range Interpretation Comments MCHC (test code = MCHC) 33.0 32.0-36.0 [place] [address]-07-15 08:40:00 Test Item Value Reference Range Interpretation Comments RDW (test code = RDW) 15.2 11.5-14.5 [place] [address]-07-15 08:40:00 Test Item Value Reference Range Interpretation Comments Platelet (test code = Platelet) 176 133-450 [place] [address]-07-15 08:40:00 Test Item Value Reference Range Interpretation Comments MPV (test code = MPV) 7.6 7.4-10.4 [place] [address]-07-15 08:40:00 Test Item Value Reference Range Interpretation Comments Sed Rate (test code = 81 See_Comment [Auto mated message] The Sed Rate) system which ge nerated this result transmit timmy reference range : <=20. The reference range was not used to interpr et this result as katja l/abnormal. [place] 137583-07-15 08:40:00 Test Item Value Reference Range Interpretation Comments Glucose Lvl (test code = Glucose Lvl) 92 70-99 [place] [address]-07-15 08:40:00 Test Item Value Reference Range Interpretation Comments BUN (test code = BUN) 24 7-22 [place] 137583-07-15 08:40:00 Test Item Value Reference Range Interpretation Comments Creatinine Lvl (test code = Creatinine 0.59 0.50-1.40 Lvl) [place] 137583-07-15 08:40:00 Test Item Value Reference Range Interpretation Comments Sodium Lvl (test code = Sodium Lvl) 139 135-145 [place] [address]-07-15 08:40:00 Test Item Value Reference Range Interpretation Comments Potassium Lvl (test code = Potassium 4.3 3.5-5.1 Lvl) [place] [address]-07-15 08:40:00 Test Item Value Reference Range Interpretation Comments Chloride Lvl (test code = Chloride Lvl) 108 95-109 [place] [address]-07-15 08:40:00 Test Item Value Reference Range Interpretation Comments CO2 (test code = CO2) 28 24-32 [place] [address]-07-15 08:40:00 Test Item Value Reference Range Interpretation Comments AGAP (test code = AGAP) 7.3 10.0-20.0 [place] 137583-07-15 08:40:00 Test Item Value Reference Range Interpretation Comments Calcium Lvl (test code = Calcium Lvl) 8.7 8.5-10.5 [place] 137583-07-15 08:40:00 Test Item Value Reference Range Interpretation Comments eGFR (test code = eGFR) 94 [place] 783853-07-15 08:40:00 Test Item Value Reference Range Interpretation Comments Segs (test code = Segs) 67.2 45.0-75.0 [place] [address]-07-15 08:40:00 Test Item Value Reference Range Interpretation Comments Lymphocytes (test code = Lymphocytes) 18.0 20.0-40.0 [place] [address]-07-15 08:40:00 Test Item Value Reference Range Interpretation Comments Monocytes (test code = Monocytes) 10.3 2.0-12.0 [place] [address]-07-15 08:40:00 Test Item Value Reference Range Interpretation Comments Eosinophils (test code = 3.7 See_Comment [A utomated message] The Eosinophils) system which ge nerated this result tra nsmitted reference range : <=4.0. The reference r vasile was not used to int erpret this result as normal/abnormal . [place] 783853-07-15 08:40:00 Test Item Value Reference Range Interpretation Comments Basophils (test code = 0.8 See_Comment [Aut omated message] The Basophils) system which ge nerated this result tra nsmitted reference range : <=1.0. The reference r vasile was not used to int erpret this result as normal/abnormal . [place] [address]-07-15 08:40:00 Test Item Value Reference Range Interpretation Comments Neutrophils # (test code = Neutrophils 3.0 1.5-8.1 #) [place] [address]-07-15 08:40:00 Test Item Value Reference Range Interpretation Comments Lymphocytes # (test code = Lymphocytes 0.8 1.0-5.5 #) [place] [address]-07-15 08:40:00 Test Item Value Reference Range Interpretation Comments Monocytes # (test code 0.5 See_Comment [Aut omated message] The = Monocytes #) system which generated this result tra nsmitted reference range : <=0.8. The reference r vasile was not used to int erpret this result as normal/abnormal . [facility]:00 Test Item Value Reference Range Interpretation Comments Eosinophils # (test code 0.2 See_Comment [A utomated message] The = Eosinophils #) system whic h generated this result tra nsmitted reference range : <=0.5. The reference r vasile was not used to int erpret this result as normal/abnormal . [place] 783853-07-15 08:40:00 Test Item Value Reference Range Interpretation Comments Sed Rate (test code = 81 See_Comment [Auto mated message] The Sed Rate) system which ge nerated this result transmit timmy reference range : <=20. The reference range was not used to interpr et this result as katja l/abnormal. [facility]kCKPIFHVHSE2278[facility]42-55 08:40:00 Test Item Value Reference Range Interpretation Comments WBC (test code = WBC) 4.5 3.7-10.4 [place] [address]-07-15 08:40:00 Test Item Value Reference Range Interpretation Comments RBC (test code = RBC) 3.07 4.20-5.40 [place] [address]-07-15 08:40:00 Test Item Value Reference Range Interpretation Comments Hgb (test code = Hgb) 9.0 12.0-16.0 [place] [address]-07-15 08:40:00 Test Item Value Reference Range Interpretation Comments Hct (test code = Hct) 27.2 36.0-48.0 [place] [address]-07-15 08:40:00 Test Item Value Reference Range Interpretation Comments MCV (test code = MCV) 88.5 80.0-98.0 [place] [address]-07-15 08:40:00 Test Item Value Reference Range Interpretation Comments MCH (test code = MCH) 29.2 pg 27.0-31.0 [place] 783853-07-15 08:40:00 Test Item Value Reference Range Interpretation Comments MCHC (test code = MCHC) 33.0 32.0-36.0 [place] [address]-07-15 08:40:00 Test Item Value Reference Range Interpretation Comments RDW (test code = RDW) 15.2 11.5-14.5 [place] [address]-07-15 08:40:00 Test Item Value Reference Range Interpretation Comments Platelet (test code = Platelet) 176 133-450 [place] [address]-07-15 08:40:00 Test Item Value Reference Range Interpretation Comments MPV (test code = MPV) 7.6 7.4-10.4 [place] [address]-07-15 08:40:00 Test Item Value Reference Range Interpretation Comments Sed Rate (test code = 81 See_Comment [Auto mated message] The Sed Rate) system which ge nerated this result transmit timmy reference range : <=20. The reference range was not used to interpr et this result as katja l/abnormal. [place] [address]-07-15 08:40:00 Test Item Value Reference Range Interpretation Comments Glucose Lvl (test code = Glucose Lvl) 92 70-99 [place] [address]-07-15 08:40:00 Test Item Value Reference Range Interpretation Comments BUN (test code = BUN) 24 7-22 [place] [address]-07-15 08:40:00 Test Item Value Reference Range Interpretation Comments Creatinine Lvl (test code = Creatinine 0.59 0.50-1.40 Lvl) [place] [address]-07-15 08:40:00 Test Item Value Reference Range Interpretation Comments Sodium Lvl (test code = Sodium Lvl) 139 135-145 [place] [address]-07-15 08:40:00 Test Item Value Reference Range Interpretation Comments Potassium Lvl (test code = Potassium 4.3 3.5-5.1 Lvl) [place] [address]-07-15 08:40:00 Test Item Value Reference Range Interpretation Comments Chloride Lvl (test code = Chloride Lvl) 108 95-109 [place] [address]-07-15 08:40:00 Test Item Value Reference Range Interpretation Comments CO2 (test code = CO2) 28 24-32 [place] [address]-07-15 08:40:00 Test Item Value Reference Range Interpretation Comments AGAP (test code = AGAP) 7.3 10.0-20.0 [place] 137583-07-15 08:40:00 Test Item Value Reference Range Interpretation Comments Calcium Lvl (test code = Calcium Lvl) 8.7 8.5-10.5 [place] 137583-07-15 08:40:00 Test Item Value Reference Range Interpretation Comments eGFR (test code = eGFR) 94 [place] 783853-07-15 08:40:00 Test Item Value Reference Range Interpretation Comments Segs (test code = Segs) 67.2 45.0-75.0 [place] [address]-07-15 08:40:00 Test Item Value Reference Range Interpretation Comments Lymphocytes (test code = Lymphocytes) 18.0 20.0-40.0 [place] [address]-07-15 08:40:00 Test Item Value Reference Range Interpretation Comments Monocytes (test code = Monocytes) 10.3 2.0-12.0 [place] [address]-07-15 08:40:00 Test Item Value Reference Range Interpretation Comments Eosinophils (test code = Eosinophils) 3.7 <=4.0 [place] [address]-07-15 08:40:00 Test Item Value Reference Range Interpretation Comments Basophils (test code = Basophils) 0.8 <=1.0 [place] [address]-07-15 08:40:00 Test Item Value Reference Range Interpretation Comments Neutrophils # (test code = Neutrophils 3.0 1.5-8.1 #) [place] [address]-07-15 08:40:00 Test Item Value Reference Range Interpretation Comments Lymphocytes # (test code = Lymphocytes 0.8 1.0-5.5 #) [place] [address]-07-15 08:40:00 Test Item Value Reference Range Interpretation Comments Monocytes # (test code = Monocytes #) 0.5 <=0.8 [place] [address]-07-15 08:40:00 Test Item Value Reference Range Interpretation Comments Eosinophils # (test code = Eosinophils 0.2 <=0.5 #) [place] [address]-07-15 08:40:00 Test Item Value Reference Range Interpretation Comments Sed Rate (test code = Sed Rate) 81 <=20 [place] [address]-07-15 08:40:00 Test Item Value Reference Range Interpretation Comments WBC (test code = WBC) 4.5 3.7-10.4 [facility]lttdhtCOJGHSKMNG9108-83-73 08:40:00 Test Item Value Reference Range Interpretation Comments RBC (test code = RBC) 3.07 4.20-5.40 [facility]NjgfjczLTXWHIELGQ7789-85-84 08:40:00 Test Item Value Reference Range Interpretation Comments Hgb (test code = Hgb) 9.0 12.0-16.0 [facility] CenterJfvexabPUUWHFUHSS7919-45-10 08:40:00 Test Item Value Reference Range Interpretation Comments Hct (test code = Hct) 27.2 36.0-48.0 [facility] CenterMupacxzHDSGHIAPDA8518-74-50 08:40:00 Test Item Value Reference Range Interpretation Comments MCV (test code = MCV) 88.5 80.0-98.0 [facility] CenterCcovwjjPHMYQBUGMR2240-48-09 08:40:00 Test Item Value Reference Range Interpretation Comments MCH (test code = MCH) 29.2 pg 27.0-31.0 [facility] CenterArdtwrsGMZVVYODAK9742-98-56 08:40:00 Test Item Value Reference Range Interpretation Comments MCHC (test code = MCHC) 33.0 32.0-36.0 [facility] CenterMwenujsBLMNCGRWCI1008-05-81 08:40:00 Test Item Value Reference Range Interpretation Comments RDW (test code = RDW) 15.2 11.5-14.5 [facility] CenterJwgyebiJJIZXDBYHC4534-55-04 08:40:00 Test Item Value Reference Range Interpretation Comments Platelet (test code = Platelet) 176 133-450 [facility] CenterZsvetfbDQNRIMSUUK1080-48-96 08:40:00 Test Item Value Reference Range Interpretation Comments MPV (test code = MPV) 7.6 7.4-10.4 [facility] CenterFmzkykuISCREWFEAM9132-30-88 08:40:00 Test Item Value Reference Range Interpretation Comments Sed Rate (test code = Sed Rate) 81 <=20 [facility]JW8829-62-31 03:41:00 Test Item Value Reference Range Interpretation Comments ARIES (test code = ARIES) POSITIVE [facility]CsvfsvdWJKMHPSUJU3704-27-64 03:41:00 Test Item Value Reference Range Interpretation Comments Treponemal Ab (test code Non-Reactive = Treponemal Ab) *NA*(03/24/23 10:41 PM) [place] [address]-07-15 03:41:00 Test Item Value Reference Range Interpretation Comments ARIES Titer (test code = ARIES Titer) 1:80 [place] [address]-07-15 03:41:00 Test Item Value Reference Range Interpretation Comments ARIES Pattern (test code = ARIES Cytoplasmic Pattern) [place] 305753-07-15 03:41:00 Test Item Value Reference Range Interpretation Comments DNA Ab (DS) (test code = DNA Ab (DS)) [facility]XncnpjrIRELEASDMV3166-93-33 03:41:00 Test Item Value Reference Range Interpretation Comments Sm Ab (test code = Sm Ab) <1.0 NEG [place] [address]-07-15 03:41:00 Test Item Value Reference Range Interpretation Comments SM/COAL UNLOADER (test code = SM/COAL UNLOADER) <1.0 NEG [place] 305753-07-15 03:41:00 Test Item Value Reference Range Interpretation Comments COAL UNLOADER Ab (test code = COAL UNLOADER Ab) <1.0 NEG [place] [address]-07-15 03:41:00 Test Item Value Reference Range Interpretation Comments Antichromatin Ab (test code = <1.0 NEG Antichromatin Ab) [place] [address]-07-15 03:41:00 Test Item Value Reference Range Interpretation Comments SS-A (Ro) Ab (test code = SS-A (Ro) <1.0 NEG Ab) [place] 305753-07-15 03:41:00 Test Item Value Reference Range Interpretation Comments SS-B (La) Ab (test code = SS-B (La) <1.0 NEG Ab) [facility] CenterDfbybnwWVYCMZISRL6185-03-28 03:41:00 Test Item Value Reference Range Interpretation Comments SCL- 70 Ab (test code = SCL- 70 Ab) <1.0 NEG [place] [address]-07-15 03:41:00 Test Item Value Reference Range Interpretation Comments DANIELLE-1 Ab (test code = DANIELLE-1 Ab) <1.0 NEG [place] [address]-07-15 03:41:00 Test Item Value Reference Range Interpretation Comments Centromere B Ab (test code = <1.0 NEG Centromere B Ab) [place] [address]-07-15 03:41:00 Test Item Value Reference Range Interpretation Comments Ribosomal P Protein Antibody (test <1.0 NEG code = Ribosomal P Protein Antibody) [place] [address]-07-15 03:41:00 Test Item Value Reference Range Interpretation Comments ARIES Interp (test code = ARIES Interp) SEE NOTE [facility]2023-07-15 03:41:00 Test Item Value Reference Range Interpretation Comments Folate Lvl (test code = Folate Lvl) 9.5 [facility]2023-07-15 03:41:00 Test Item Value Reference Range Interpretation Comments Vitamin B12 Lvl (test code = Vitamin 427 B12 Lvl) [facility] 03:41:00 Test Item Value Reference Range Interpretation Comments Folate Lvl (test code = Folate Lvl) 9.5 [facility] HospitalPtivatpCKQSWTBNA3318-75-60 03:41:00 Test Item Value Reference Range Interpretation Comments Vitamin B12 Lvl (test code = Vitamin [phone] B12 Lvl) [facility] CenterAysmwceHWZAHGNZUX9031-63-48 03:41:00 Test Item Value Reference Range Interpretation Comments ARIES (test code = ARIES) POSITIVE [place] [address]-07-15 03:41:00 Test Item Value Reference Range Interpretation Comments Treponemal Ab (test code Non-Reactive = Treponemal Ab) *NA*(03/24/23 10:41 PM) [facility] CenterLulvepsFSVAESQWGC7502-21-02 03:41:00 Test Item Value Reference Range Interpretation Comments ARIES Titer (test code = ARIES Titer) 1:80 [place] 305753-07-15 03:41:00 Test Item Value Reference Range Interpretation Comments ARIES Pattern (test code = ARIES Cytoplasmic Pattern) [place] [address]-07-15 03:41:00 Test Item Value Reference Range Interpretation Comments DNA Ab (DS) (test code = DNA Ab (DS)) no gt [facility] CenterJlqmrvtYUWOLJSPZU5267-53-61 03:41:00 Test Item Value Reference Range Interpretation Comments Sm Ab (test code = Sm Ab) <1.0 NEG [place] [address]-07-15 03:41:00 Test Item Value Reference Range Interpretation Comments SM/COAL UNLOADER (test code = SM/COAL UNLOADER) <1.0 NEG [place] [address]-07-15 03:41:00 Test Item Value Reference Range Interpretation Comments COAL UNLOADER Ab (test code = COAL UNLOADER Ab) <1.0 NEG [place] [address]-07-15 03:41:00 Test Item Value Reference Range Interpretation Comments Antichromatin Ab (test code = <1.0 NEG Antichromatin Ab) [place] [address]-07-15 03:41:00 Test Item Value Reference Range Interpretation Comments SS-A (Ro) Ab (test code = SS-A (Ro) <1.0 NEG Ab) [place] [address]-07-15 03:41:00 Test Item Value Reference Range Interpretation Comments SS-B (La) Ab (test code = SS-B (La) <1.0 NEG Ab) [place] [address]-07-15 03:41:00 Test Item Value Reference Range Interpretation Comments SCL- 70 Ab (test code = SCL- 70 Ab) <1.0 NEG [place] [address]-07-15 03:41:00 Test Item Value Reference Range Interpretation Comments DANIELLE-1 Ab (test code = DANIELLE-1 Ab) <1.0 NEG [place] [address]-07-15 03:41:00 Test Item Value Reference Range Interpretation Comments Centromere B Ab (test code = <1.0 NEG Centromere B Ab) [place] [address]-07-15 03:41:00 Test Item Value Reference Range Interpretation Comments Ribosomal P Protein Antibody (test <1.0 NEG code = Ribosomal P Protein Antibody) [place] [address]-07-15 03:41:00 Test Item Value Reference Range Interpretation Comments ARIES Interp (test code = ARIES Interp) SEE NOTE [facility] CenterQecponfQSEQMAPFIQ6993-59-25 03:41:00 Test Item Value Reference Range Interpretation Comments ARIES (test code = ARIES) POSITIVE [place] [address]-07-15 03:41:00 Test Item Value Reference Range Interpretation Comments Treponemal Ab (test code Non-Reactive = Treponemal Ab) *NA*(03/24/23 10:41 PM) [place] [address]-07-15 03:41:00 Test Item Value Reference Range Interpretation Comments ARIES Titer (test code = ARIES Titer) 1:80 [place] [address]-07-15 03:41:00 Test Item Value Reference Range Interpretation Comments ARIES Pattern (test code = ARIES Cytoplasmic Pattern) [facility] CenterQaiordaUREHBNIPNB4969-72-71 03:41:00 Test Item Value Reference Range Interpretation Comments DNA Ab (DS) (test code = DNA Ab (DS)) no gt [facility] CenterHpjxtfeDIFZLTAEPL7346-78-95 03:41:00 Test Item Value Reference Range Interpretation Comments Sm Ab (test code = Sm Ab) <1.0 NEG [place] 305753-07-15 03:41:00 Test Item Value Reference Range Interpretation Comments SM/COAL UNLOADER (test code = SM/COAL UNLOADER) <1.0 NEG [facility] CenterJovkvvrWSFTUVCOMT3187-40-92 03:41:00 Test Item Value Reference Range Interpretation Comments COAL UNLOADER Ab (test code = COAL UNLOADER Ab) <1.0 NEG [place] [address]-07-15 03:41:00 Test Item Value Reference Range Interpretation Comments Antichromatin Ab (test code = <1.0 NEG Antichromatin Ab) [facility] CenterTajpvaiNUVHEKKZKK4130-58-99 03:41:00 Test Item Value Reference Range Interpretation Comments SS-A (Ro) Ab (test code = SS-A (Ro) <1.0 NEG Ab) [facility] CenterThjxvhhIJNJXBTNMB2821-15-52 03:41:00 Test Item Value Reference Range Interpretation Comments SS-B (La) Ab (test code = SS-B (La) <1.0 NEG Ab) [facility] CenterVdvdoenRXQODHSRHU6677-52-47 03:41:00 Test Item Value Reference Range Interpretation Comments SCL- 70 Ab (test code = SCL- 70 Ab) <1.0 NEG [facility] CenterQmivmioIETLVBSEKI0103-55-23 03:41:00 Test Item Value Reference Range Interpretation Comments DANIELLE-1 Ab (test code = DANIELLE-1 Ab) <1.0 NEG [facility] CenterCkxzhxkRMOLOWUEAO3046-66-71 03:41:00 Test Item Value Reference Range Interpretation Comments Centromere B Ab (test code = <1.0 NEG Centromere B Ab) [place] [address]-07-15 03:41:00 Test Item Value Reference Range Interpretation Comments Ribosomal P Protein Antibody (test <1.0 NEG code = Ribosomal P Protein Antibody) [place] 305753-07-15 03:41:00 Test Item Value Reference Range Interpretation Comments ARIES Interp (test code = ARIES Interp) SEE NOTE [facility]2023-07-15 03:41:00 Test Item Value Reference Range Interpretation Comments Folate Lvl (test code = Folate Lvl) 9.5 [facility]2023-07-15 03:41:00 Test Item Value Reference Range Interpretation Comments Vitamin B12 Lvl (test code = Vitamin 427 B12 Lvl) [facility]EgsxfmtJYXAWOUGA5634-56-05 03:41:00 Test Item Value Reference Range Interpretation Comments Folate Lvl (test code = Folate Lvl) 9.5 [facility] HospitalBrtprlxFKZZCTYBP1164-06-99 03:41:00 Test Item Value Reference Range Interpretation Comments Vitamin B12 Lvl (test code = Vitamin [phone] B12 Lvl) [facility] CenterXdyjkjhPFPCOEIUSY1245-16-11 03:41:00 Test Item Value Reference Range Interpretation Comments ARIES (test code = ARIES) POSITIVE [place] 305753-07-15 03:41:00 Test Item Value Reference Range Interpretation Comments Treponemal Ab (test code Non-Reactive = Treponemal Ab) *NA*(03/24/23 10:41 PM) [facility] [facility]LE[facility]NKF4471[facility] 03:41:00 Test Item Value Reference Range Interpretation Comments ARIES Titer (test code = ARIES Titer) 1:80 [place] [address]-07-15 03:41:00 Test Item Value Reference Range Interpretation Comments ARIES Pattern (test code = ARIES Cytoplasmic Pattern) [place] 305753-07-15 03:41:00 Test Item Value Reference Range Interpretation Comments DNA Ab (DS) (test code = DNA Ab (DS)) no gt [facility] CenterUifglgkBRTKRHXGEU3045-23-63 03:41:00 Test Item Value Reference Range Interpretation Comments Sm Ab (test code = Sm Ab) <1.0 NEG [place] [address]-07-15 03:41:00 Test Item Value Reference Range Interpretation Comments SM/COAL UNLOADER (test code = SM/COAL UNLOADER) <1.0 NEG [place] [address]-07-15 03:41:00 Test Item Value Reference Range Interpretation Comments COAL UNLOADER Ab (test code = COAL UNLOADER Ab) <1.0 NEG [place] [address]-07-15 03:41:00 Test Item Value Reference Range Interpretation Comments Antichromatin Ab (test code = <1.0 NEG Antichromatin Ab) [place] [address]-07-15 03:41:00 Test Item Value Reference Range Interpretation Comments SS-A (Ro) Ab (test code = SS-A (Ro) <1.0 NEG Ab) [place] [address]-07-15 03:41:00 Test Item Value Reference Range Interpretation Comments SS-B (La) Ab (test code = SS-B (La) <1.0 NEG Ab) [place] [address]-07-15 03:41:00 Test Item Value Reference Range Interpretation Comments SCL- 70 Ab (test code = SCL- 70 Ab) <1.0 NEG [place] [address]-07-15 03:41:00 Test Item Value Reference Range Interpretation Comments DANIELLE-1 Ab (test code = DANIELLE-1 Ab) <1.0 NEG [place] [address]-07-15 03:41:00 Test Item Value Reference Range Interpretation Comments Centromere B Ab (test code = <1.0 NEG Centromere B Ab) [place] [address]-07-15 03:41:00 Test Item Value Reference Range Interpretation Comments Ribosomal P Protein Antibody (test <1.0 NEG code = Ribosomal P Protein Antibody) [place] [address]-07-15 03:41:00 Test Item Value Reference Range Interpretation Comments ARIES Interp (test code = ARIES Interp) [facility] NOTE [facility] CenterNnmuzftUHCEHOAPUD7235-97-23 03:41:00 Test Item Value Reference Range Interpretation Comments ARIES (test code = ARIES) POSITIVE [place] [address]-07-15 03:41:00 Test Item Value Reference Range Interpretation Comments Treponemal Ab (test code Non-Reactive = Treponemal Ab) *NA*(03/24/23 10:41 PM) [place] [address]-07-15 03:41:00 Test Item Value Reference Range Interpretation Comments ARIES Titer (test code = ARIES Titer) 1:80 [place] [address]-07-15 03:41:00 Test Item Value Reference Range Interpretation Comments ARIES Pattern (test code = ARIES Cytoplasmic Pattern) [place] [address]-07-15 03:41:00 Test Item Value Reference Range Interpretation Comments DNA Ab (DS) (test code = DNA Ab (DS)) no gt [place] [address]-07-15 03:41:00 Test Item Value Reference Range Interpretation Comments Sm Ab (test code = Sm Ab) <1.0 NEG [place] 305753-07-15 03:41:00 Test Item Value Reference Range Interpretation Comments SM/COAL UNLOADER (test code = SM/COAL UNLOADER) <1.0 NEG [place] 305753-07-15 03:41:00 Test Item Value Reference Range Interpretation Comments COAL UNLOADER Ab (test code = COAL UNLOADER Ab) <1.0 NEG [facility] CenterBeqwvajSONBEFQISO1282-72-92 03:41:00 Test Item Value Reference Range Interpretation Comments Antichromatin Ab (test code = <1.0 NEG Antichromatin Ab) [facility] CenterXdvbjdeXEREXARGWA1970-31-11 03:41:00 Test Item Value Reference Range Interpretation Comments SS-A (Ro) Ab (test code = SS-A (Ro) <1.0 NEG Ab) [facility] CenterVoclqawSSKYDGDFED5067-58-64 03:41:00 Test Item Value Reference Range Interpretation Comments SS-B (La) Ab (test code = SS-B (La) <1.0 NEG Ab) [facility] CenterSfhxkemMMRUCKTQGD2818-02-63 03:41:00 Test Item Value Reference Range Interpretation Comments SCL- 70 Ab (test code = SCL- 70 Ab) <1.0 NEG [facility] CenterWkekamcGRFUWARXFL4381-08-40 03:41:00 Test Item Value Reference Range Interpretation Comments DANIELLE-1 Ab (test code = DANIELLE-1 Ab) <1.0 NEG [facility] CenterJxkcdxqGMUUYJERHV9981-24-79 03:41:00 Test Item Value Reference Range Interpretation Comments Centromere B Ab (test code = <1.0 NEG Centromere B Ab) [facility] CenterRhoxivrTRRVLSNSWN1224-15-93 03:41:00 Test Item Value Reference Range Interpretation Comments Ribosomal P Protein Antibody (test <1.0 NEG code = Ribosomal P Protein Antibody) [facility] CenterJmbctidMQSEOSOWPV0784-24-26 03:41:00 Test Item Value Reference Range Interpretation Comments ARIES Interp (test code = ARIES Interp) SEE NOTE [facility]2023-07-15 03:41:00 Test Item Value Reference Range Interpretation Comments Folate Lvl (test code = Folate Lvl) 9.5 [facility]2023-07-15 03:41:00 Test Item Value Reference Range Interpretation Comments Vitamin B12 Lvl (test code = Vitamin 427 B12 Lvl) [facility]FdseuetFNJPZIHTU0312-82-11 03:41:00 Test Item Value Reference Range Interpretation Comments Folate Lvl (test code = Folate Lvl) 9.5 [facility] HospitalJvvdpqzNUXAMJGND4456-66-09 03:41:00 Test Item Value Reference Range Interpretation Comments Vitamin B12 Lvl (test code = Vitamin [phone] B12 Lvl) [facility] CenterPhqvbhsHBFKCYDWEA9209-88-71 03:41:00 Test Item Value Reference Range Interpretation Comments ARIES (test code = ARIES) POSITIVE [place] [address]-07-15 03:41:00 Test Item Value Reference Range Interpretation Comments Treponemal Ab (test code Non-Reactive = Treponemal Ab) *NA*(03/24/23 10:41 PM) [place] [address]-07-15 03:41:00 Test Item Value Reference Range Interpretation Comments ARIES Titer (test code = ARIES Titer) 1:80 [place] [address]-07-15 03:41:00 Test Item Value Reference Range Interpretation Comments ARIES Pattern (test code = ARIES Cytoplasmic Pattern) [place] [address]-07-15 03:41:00 Test Item Value Reference Range Interpretation Comments DNA Ab (DS) (test code = DNA Ab (DS)) no gt [facility] CenterZyckiuoQOZPRMURJU9013-08-49 03:41:00 Test Item Value Reference Range Interpretation Comments Sm Ab (test code = Sm Ab) <1.0 NEG [place] [address]-07-15 03:41:00 Test Item Value Reference Range Interpretation Comments SM/COAL UNLOADER (test code = SM/COAL UNLOADER) <1.0 NEG [place] [address]-07-15 03:41:00 Test Item Value Reference Range Interpretation Comments COAL UNLOADER Ab (test code = COAL UNLOADER Ab) <1.0 NEG [place] [address]-07-15 03:41:00 Test Item Value Reference Range Interpretation Comments Antichromatin Ab (test code = <1.0 NEG Antichromatin Ab) [place] [address]-07-15 03:41:00 Test Item Value Reference Range Interpretation Comments SS-A (Ro) Ab (test code = SS-A (Ro) <1.0 NEG Ab) [place] [address]-07-15 03:41:00 Test Item Value Reference Range Interpretation Comments SS-B (La) Ab (test code = SS-B (La) <1.0 NEG Ab) [place] [address]-07-15 03:41:00 Test Item Value Reference Range Interpretation Comments SCL- 70 Ab (test code = SCL- 70 Ab) <1.0 NEG [place] [address]-07-15 03:41:00 Test Item Value Reference Range Interpretation Comments DANIELLE-1 Ab (test code = ADNIELLE-1 Ab) <1.0 NEG [place] [address]-07-15 03:41:00 Test Item Value Reference Range Interpretation Comments Centromere B Ab (test code = <1.0 NEG Centromere B Ab) [place] [address]-07-15 03:41:00 Test Item Value Reference Range Interpretation Comments Ribosomal P Protein Antibody (test <1.0 NEG code = Ribosomal P Protein Antibody) [place] [address]-07-15 03:41:00 Test Item Value Reference Range Interpretation Comments ARIES Interp (test code = ARIES Interp) [facility] NOTE [facility] CenterDgvkoktWJPAXZSKCJ3609-15-14 03:41:00 Test Item Value Reference Range Interpretation Comments ARIES (test code = ARIES) POSITIVE [place] [address]-07-15 03:41:00 Test Item Value Reference Range Interpretation Comments Treponemal Ab (test code Non-Reactive = Treponemal Ab) *NA*(03/24/23 10:41 PM) [place] [address]-07-15 03:41:00 Test Item Value Reference Range Interpretation Comments ARIES Titer (test code = ARIES Titer) 1:80 [place] [address]-07-15 03:41:00 Test Item Value Reference Range Interpretation Comments ARIES Pattern (test code = ARIES Cytoplasmic Pattern) [place] [address]-07-15 03:41:00 Test Item Value Reference Range Interpretation Comments DNA Ab (DS) (test code = DNA Ab (DS)) no gt [place] [address]-07-15 03:41:00 Test Item Value Reference Range Interpretation Comments Sm Ab (test code = Sm Ab) <1.0 NEG [place] [address]-07-15 03:41:00 Test Item Value Reference Range Interpretation Comments SM/COAL UNLOADER (test code = SM/COAL UNLOADER) <1.0 [address]07-15 03:41:00 Test Item Value Reference Range Interpretation Comments COAL UNLOADER Ab (test code = COAL UNLOADER Ab) <1.0 NEG [facility] CenterOzytfyoWTDPNZNOPT2735-49-97 03:41:00 Test Item Value Reference Range Interpretation Comments Antichromatin Ab (test code = <1.0 NEG Antichromatin Ab) [facility] CenterCxqhbvvVVCPFPIVIS5168-28-02 03:41:00 Test Item Value Reference Range Interpretation Comments SS-A (Ro) Ab (test code = SS-A (Ro) <1.0 NEG Ab) [facility] CenterOmqercpEMCESDYCJI7154-06-03 03:41:00 Test Item Value Reference Range Interpretation Comments SS-B (La) Ab (test code = SS-B (La) <1.0 NEG Ab) [facility] CenterTtadsfcIHZFOUEZOO0110-27-81 03:41:00 Test Item Value Reference Range Interpretation Comments SCL- 70 Ab (test code = SCL- 70 Ab) <1.0 NEG [facility] CenterIwbrnzvNRPRTYMUPT9280-00-76 03:41:00 Test Item Value Reference Range Interpretation Comments DANIELLE-1 Ab (test code = DANIELLE-1 Ab) <1.0 NEG [facility] CenterEobkfhtUKMCSCESZN2364-38-87 03:41:00 Test Item Value Reference Range Interpretation Comments Centromere B Ab (test code = <1.0 NEG Centromere B Ab) [facility] CenterVrayuozIZAEDKNTJP5991-29-28 03:41:00 Test Item Value Reference Range Interpretation Comments Ribosomal P Protein Antibody (test <1.0 NEG code = Ribosomal P Protein Antibody) [facility] CenterGgvmgqgGEYVFSKWOH0206-08-61 03:41:00 Test Item Value Reference Range Interpretation Comments ARIES Interp (test code = ARIES Interp) SEE NOTE [facility]2023-07-15 03:41:00 Test Item Value Reference Range Interpretation Comments Folate Lvl (test code = Folate Lvl) 9.5 [facility]2023-07-15 03:41:00 Test Item Value Reference Range Interpretation Comments Vitamin B12 Lvl (test code = Vitamin 427 B12 Lvl) [facility] HospitalBqjozaoCUEZLGNRQ2839-51-25 03:41:00 Test Item Value Reference Range Interpretation Comments Folate Lvl (test code = Folate Lvl) 9.5 [facility] HospitalJpdvakaMEDHHHEUF3325-80-77 03:41:00 Test Item Value Reference Range Interpretation Comments Vitamin B12 Lvl (test code = Vitamin [phone] B12 Lvl) [facility] CenterXimtxytJVDXOPQBQP8397-71-37 03:41:00 Test Item Value Reference Range Interpretation Comments ARIES (test code = ARIES) POSITIVE [place] [address]753-07-15 03:41:00 Test Item Value Reference Range Interpretation Comments Treponemal Ab (test code Non-Reactive = Treponemal Ab) *NA*(03/24/23 10:41 PM) [place] [address]753-07-15 03:41:00 Test Item Value Reference Range Interpretation Comments ARIES Titer (test code = ARIES Titer) 1:80 [place] [address]-07-15 03:41:00 Test Item Value Reference Range Interpretation Comments ARIES Pattern (test code = ARIES Cytoplasmic Pattern) [place] [address]-07-15 03:41:00 Test Item Value Reference Range Interpretation Comments DNA Ab (DS) (test code = DNA Ab (DS)) no gt [facility] CenterOzaprieEFLLFRGGFY8971-43-03 03:41:00 Test Item Value Reference Range Interpretation Comments Sm Ab (test code = Sm Ab) <1.0 NEG [place] [address]753-07-15 03:41:00 Test Item Value Reference Range Interpretation Comments SM/COAL UNLOADER (test code = SM/COAL UNLOADER) <1.0 NEG [place] [address]-07-15 03:41:00 Test Item Value Reference Range Interpretation Comments COAL UNLOADER Ab (test code = COAL UNLOADER Ab) <1.0 NEG [place] [address]-07-15 03:41:00 Test Item Value Reference Range Interpretation Comments Antichromatin Ab (test code = <1.0 NEG Antichromatin Ab) [place] [address]-07-15 03:41:00 Test Item Value Reference Range Interpretation Comments SS-A (Ro) Ab (test code = SS-A (Ro) <1.0 NEG Ab) [place] [address]-07-15 03:41:00 Test Item Value Reference Range Interpretation Comments SS-B (La) Ab (test code = SS-B (La) <1.0 NEG Ab) [facility] CenterIhbeoswWAMSYEFOPN5367-33-40 03:41:00 Test Item Value Reference Range Interpretation Comments SCL- 70 Ab (test code = SCL- 70 Ab) <1.0 NEG [place] [address]-07-15 03:41:00 Test Item Value Reference Range Interpretation Comments DANIELLE-1 Ab (test code = DANIELLE-1 Ab) <1.0 NEG [place] [address]-07-15 03:41:00 Test Item Value Reference Range Interpretation Comments Centromere B Ab (test code = <1.0 NEG Centromere B Ab) [place] [address]-07-15 03:41:00 Test Item Value Reference Range Interpretation Comments Ribosomal P Protein Antibody (test <1.0 NEG code = Ribosomal P Protein Antibody) [place] [address]-07-15 03:41:00 Test Item Value Reference Range Interpretation Comments ARIES Interp (test code = ARIES Interp) SEE NOTE [place] [address]-07-15 03:41:00 Test Item Value Reference Range Interpretation Comments ARIES (test code = ARIES) POSITIVE [place] [address]-07-15 03:41:00 Test Item Value Reference Range Interpretation Comments Treponemal Ab (test code Non-Reactive = Treponemal Ab) *NA*(03/24/23 10:41 PM) [place] [address]-07-15 03:41:00 Test Item Value Reference Range Interpretation Comments ARISE Titer (test code = ARIES Titer) 1:80 [place] [address]-07-15 03:41:00 Test Item Value Reference Range Interpretation Comments ARIES Pattern (test code = ARIES Cytoplasmic Pattern) [address]07-15 03:41:00 Test Item Value Reference Range Interpretation Comments DNA Ab (DS) (test code = DNA Ab (DS)) no gt [place] [address]-07-15 03:41:00 Test Item Value Reference Range Interpretation Comments Sm Ab (test code = Sm Ab) <1.0 NEG [place] [address]-07-15 03:41:00 Test Item Value Reference Range Interpretation Comments SM/COAL UNLOADER (test code = SM/COAL UNLOADER) <1.0 NEG [place] [address]-07-15 03:41:00 Test Item Value Reference Range Interpretation Comments COAL UNLOADER Ab (test code = COAL UNLOADER Ab) <1.0 NEG [place] [address]-07-15 03:41:00 Test Item Value Reference Range Interpretation Comments Antichromatin Ab (test code = <1.0 NEG Antichromatin Ab) [facility] CenterHacwyvaLHDAMVZOIO9728-95-50 03:41:00 Test Item Value Reference Range Interpretation Comments SS-A (Ro) Ab (test code = SS-A (Ro) <1.0 NEG Ab) [facility] CenterHramtjiLOFAMNPYCO2759-15-90 03:41:00 Test Item Value Reference Range Interpretation Comments SS-B (La) Ab (test code = SS-B (La) <1.0 NEG Ab) [facility] CenterIiijqjvPEQDPUCVBO4322-55-97 03:41:00 Test Item Value Reference Range Interpretation Comments SCL- 70 Ab (test code = SCL- 70 Ab) <1.0 NEG [facility] CenterCozgnfgYKCPROJBLA4596-45-09 03:41:00 Test Item Value Reference Range Interpretation Comments DANIELLE-1 Ab (test code = DANIELLE-1 Ab) <1.0 NEG [place] [address]-07-15 03:41:00 Test Item Value Reference Range Interpretation Comments Centromere B Ab (test code = <1.0 NEG Centromere B Ab) [facility] CenterKggjwgvLQVUKMIDXL2512-10-66 03:41:00 Test Item Value Reference Range Interpretation Comments Ribosomal P Protein Antibody (test <1.0 NEG code = Ribosomal P Protein Antibody) [facility] CenterFoywttuDOZGKTFULF7125-11-32 03:41:00 Test Item Value Reference Range Interpretation Comments ARIES Interp (test code = ARIES Interp) SEE NOTE [facility]2023-07-15 03:41:00 Test Item Value Reference Range Interpretation Comments Folate Lvl (test code = Folate Lvl) 9.5 [facility]2023-07-15 03:41:00 Test Item Value Reference Range Interpretation Comments Vitamin B12 Lvl (test code = Vitamin 427 B12 Lvl) [facility] HospitalQgtodpfOWONNYSPV9135-35-71 03:41:00 Test Item Value Reference Range Interpretation Comments Folate Lvl (test code = Folate Lvl) 9.5 [facility] HospitalIzyovuwGWYRRZYBP3851-49-54 03:41:00 Test Item Value Reference Range Interpretation Comments Vitamin B12 Lvl (test code = Vitamin 204 057-0516 B12 Lvl) [facility] CenterCytkigmNEAQHWKDZQ2793-93-01 03:41:00 Test Item Value Reference Range Interpretation Comments ARIES (test code = ARIES) POSITIVE [place] [address]753-07-15 03:41:00 Test Item Value Reference Range Interpretation Comments Treponemal Ab (test code Non-Reactive = Treponemal Ab) *NA*(03/24/23 10:41 PM) [place] [address]-07-15 03:41:00 Test Item Value Reference Range Interpretation Comments ARIES Titer (test code = ARIES Titer) 1:80 [place] [address]-07-15 03:41:00 Test Item Value Reference Range Interpretation Comments ARIES Pattern (test code = ARIES Cytoplasmic Pattern) [place] [address]753-07-15 03:41:00 Test Item Value Reference Range Interpretation Comments DNA Ab (DS) (test code = DNA Ab (DS)) no gt [place] [address]753-07-15 03:41:00 Test Item Value Reference Range Interpretation Comments Sm Ab (test code = Sm Ab) <1.0 NEG [place] [address]-07-15 03:41:00 Test Item Value Reference Range Interpretation Comments SM/COAL UNLOADER (test code = SM/COAL UNLOADER) <1.0 NEG [place] [address]-07-15 03:41:00 Test Item Value Reference Range Interpretation Comments COAL UNLOADER Ab (test code = COAL UNLOADER Ab) <1.0 NEG [place] [address]-07-15 03:41:00 Test Item Value Reference Range Interpretation Comments Antichromatin Ab (test code = <1.0 NEG Antichromatin Ab) [place] [address]-07-15 03:41:00 Test Item Value Reference Range Interpretation Comments SS-A (Ro) Ab (test code = SS-A (Ro) <1.0 NEG Ab) [place] [address]-07-15 03:41:00 Test Item Value Reference Range Interpretation Comments SS-B (La) Ab (test code = SS-B (La) <1.0 NEG Ab) [place] [address]-07-15 03:41:00 Test Item Value Reference Range Interpretation Comments SCL- 70 Ab (test code = SCL- 70 Ab) <1.0 NEG [place] [address]-07-15 03:41:00 Test Item Value Reference Range Interpretation Comments DANIELLE-1 Ab (test code = DANIELLE-1 Ab) <1.0 NEG [place] [address]-07-15 03:41:00 Test Item Value Reference Range Interpretation Comments Centromere B Ab (test code = <1.0 NEG Centromere B Ab) [place] [address]-07-15 03:41:00 Test Item Value Reference Range Interpretation Comments Ribosomal P Protein Antibody (test <1.0 NEG code = Ribosomal P Protein Antibody) [place] [address]-07-15 03:41:00 Test Item Value Reference Range Interpretation Comments ARIES Interp (test code = ARIES Interp) SEE NOTE [facility] CenterUtnvndpPKZKVIDMMR8307-15-30 23:11:00 Test Item Value Reference Range Interpretation Comments HIV Ag/Ab 4th Gen Negative 2*NA*(03/24/23 (test code = HIV 6:11 PM) Ag/Ab 4th Gen) [place] [address]-07-14 23:11:00 Test Item Value Reference Range Interpretation Comments C-REACTIVE PROTEIN (test code = 94.3 C-REACTIVE PROTEIN) [place] [address]-07-14 23:11:00 Test Item Value Reference Range Interpretation Comments HIV Ag/Ab 4th Gen Negative 3*NA*(03/24/23 (test code = HIV 6:11 PM) Ag/Ab 4th Gen) [facility] CenterDodrowcQNKDPYZZJP2926-99-58 23:11:00 Test Item Value Reference Range Interpretation Comments C-REACTIVE PROTEIN (test code = 94.3 C-REACTIVE PROTEIN) [facility] CenterBsyylryACWQPOOYIS9797-68-20 23:11:00 Test Item Value Reference Range Interpretation Comments HIV Ag/Ab 4th Gen Negative 2*NA*(03/24/23 (test code = HIV 6:11 PM) Ag/Ab 4th Gen) [facility] CenterYyuzjizHOPLJGDJPV7706-66-76 23:11:00 Test Item Value Reference Range Interpretation Comments C-REACTIVE PROTEIN (test code = 94.3 C-REACTIVE PROTEIN) [place] [address]-07-14 23:11:00 Test Item Value Reference Range Interpretation Comments HIV Ag/Ab 4th Gen Negative 3*NA*(03/24/23 (test code = HIV 6:11 PM) Ag/Ab 4th Gen) [facility] CenterMkpgemiYSRRRMGNUL7857-53-06 23:11:00 Test Item Value Reference Range Interpretation Comments C-REACTIVE PROTEIN (test code = 94.3 C-REACTIVE PROTEIN) [facility] CenterYzrjiwzSYUHUCQSZN8842-33-79 23:11:00 Test Item Value Reference Range Interpretation Comments HIV Ag/Ab 4th Gen Negative 2*NA*(03/24/23 (test code = HIV 6:11 PM) Ag/Ab 4th Gen) [facility] CenterGxkllarODQICXXJHA1337-28-58 23:11:00 Test Item Value Reference Range Interpretation Comments C-REACTIVE PROTEIN (test code = 94.3 C-REACTIVE PROTEIN) [facility] CenterPphtsdwSROJJEWMEJ0512-94-13 23:11:00 Test Item Value Reference Range Interpretation Comments HIV Ag/Ab 4th Gen Negative 3*NA*(03/24/23 (test code = HIV 6:11 PM) Ag/Ab 4th Gen) [facility] CenterNbixuejTEIMYFFGXF2687-48-20 23:11:00 Test Item Value Reference Range Interpretation Comments C-REACTIVE PROTEIN (test code = 94.3 C-REACTIVE PROTEIN) [facility] CenterVfyhkjzQGBMBUVFQZ9741-77-52 23:11:00 Test Item Value Reference Range Interpretation Comments HIV Ag/Ab 4th Gen Negative 2*NA*(03/24/23 (test code = HIV 6:11 PM) Ag/Ab 4th Gen) [facility] CenterBkhewpzGKXKKRJQAW2299-69-87 23:11:00 Test Item Value Reference Range Interpretation Comments C-REACTIVE PROTEIN (test code = 94.3 C-REACTIVE PROTEIN) [facility] CenterZctsgdhOZYCKSZUSA3309-67-92 23:11:00 Test Item Value Reference Range Interpretation Comments HIV Ag/Ab 4th Gen Negative 3*NA*(03/24/23 (test code = HIV 6:11 PM) Ag/Ab 4th Gen) [facility] CenterCsrtzuaEZXLNPURYS8241-23-01 23:11:00 Test Item Value Reference Range Interpretation Comments C-REACTIVE PROTEIN (test code = 94.3 C-REACTIVE PROTEIN) [facility] CenterQkymdlnVUFISMBYIE7674-95-44 23:11:00 Test Item Value Reference Range Interpretation Comments HIV Ag/Ab 4th Gen Negative 2*NA*(03/24/23 (test code = HIV 6:11 PM) Ag/Ab 4th Gen) [facility] CenterOkrbgrdDMFRUZVYSD5754-34-37 23:11:00 Test Item Value Reference Range Interpretation Comments C-REACTIVE PROTEIN (test code = 94.3 C-REACTIVE PROTEIN) [facility] CenterOzdsyhvVIISXFPBYX3015-48-50 23:11:00 Test Item Value Reference Range Interpretation Comments HIV Ag/Ab 4th Gen Negative 3*NA*(03/24/23 (test code = HIV 6:11 PM) Ag/Ab 4th Gen) [facility] CenterUecstxvUUBKICFVBE6082-06-25 23:11:00 Test Item Value Reference Range Interpretation Comments C-REACTIVE PROTEIN (test code = 94.3 C-REACTIVE PROTEIN) [place] 405823-07-14 15:29:00 Test Item Value Reference Range Interpretation Comments T3 Free (test code = T3 Free) 1.42 2.18-3.98 [place] 405823-07-14 15:29:00 Test Item Value Reference Range Interpretation Comments T3 Free (test code = T3 Free) 1.42 2.18-3.98 [facility]PavvctmXVHQVWEYX8585-37-16 15:29:00 Test Item Value Reference Range Interpretation Comments T3 Free (test code = T3 Free) 1.42 2.18-3.98 [place] 405823-07-14 15:29:00 Test Item Value Reference Range Interpretation Comments T3 Free (test code = T3 Free) 1.42 2.18-3.98 [facility] HospitalCkeafyyYNHSMWWVZ9445-13-20 15:29:00 Test Item Value Reference Range Interpretation Comments T3 Free (test code = T3 Free) 1.42 2.18-3.98 [place] 783853-07-14 09:34:00 Test Item Value Reference Range Interpretation Comments Eosinophils # (test code = Eosinophils 0.1 <=0.5 #) [place] [address]-07-14 09:34:00 Test Item Value Reference Range Interpretation Comments Eosinophils # (test code 0.1 See_Comment [A utomated message] The = Eosinophils #) system [employer] generated this result tra nsmitted reference range : <=0.5. The reference r vasile was not used to int erpret this result as normal/abnormal . [facility]XiaagauAZHIWACHLZ9260-40-34 09:34:00 Test Item Value Reference Range Interpretation Comments Eosinophils # (test code 0.1 See_Comment [A utomated message] The = Eosinophils #) system [employer] generated this result tra nsmitted reference range : <=0.5. The reference r vasile was not used to int erpret this result as normal/abnormal . [id number]:00 Test Item Value Reference Range Interpretation Comments Eosinophils # (test code = Eosinophils 0.1 <=0.5 #) [facility] 09:34:00 Test Item Value Reference Range Interpretation Comments Eosinophils # (test code = Eosinophils 0.1 <=0.5 #) [place] [address]-07-13 09:48:00 Test Item Value Reference Range Interpretation Comments Total Protein (test code = Total 5.9 6.4-8.4 Protein) [place] [address]-07-13 09:48:00 Test Item Value Reference Range Interpretation Comments Albumin Lvl (test code = Albumin Lvl) 2.6 3.5-5.0 [place] [address]-07-13 09:48:00 Test Item Value Reference Range Interpretation Comments ALT (test code = ALT) 32 <=65 [address]07-13 09:48:00 Test Item Value Reference Range Interpretation Comments AST (test code = AST) 46 <=37 [place] [address]-07-13 09:48:00 Test Item Value Reference Range Interpretation Comments Alk Phos (test code = Alk Phos) 98 39-136 [place] 137583-07-13 09:48:00 Test Item Value Reference Range Interpretation Comments Bili Total (test code = Bili Total) 0.5 0.2-1.3 [place] [address]-07-13 09:48:00 Test Item Value Reference Range Interpretation Comments B/C Ratio (test code = B/C Ratio) 30 1 6-25 [place] [address]-07-13 09:48:00 Test Item Value Reference Range Interpretation Comments Globulin (test code = Globulin) 3.3 2.7-4.2 [place] [address]-07-13 09:48:00 Test Item Value Reference Range Interpretation Comments A/G Ratio (test code = A/G Ratio) 0.8 1 0.7-1.6 [place] [address]-07-13 09:48:00 Test Item Value Reference Range Interpretation Comments Total Protein (test code = Total 5.9 6.4-8.4 Protein) [place] [address]-07-13 09:48:00 Test Item Value Reference Range Interpretation Comments Albumin Lvl (test code = Albumin Lvl) 2.6 3.5-5.0 [place] [address]-07-13 09:48:00 Test Item Value Reference Range Interpretation Comments ALT (test code = ALT) 32 <=65 [address]07-13 09:48:00 Test Item Value Reference Range Interpretation Comments AST (test code = AST) 46 <=37 [address]07-13 09:48:00 Test Item Value Reference Range Interpretation Comments Alk Phos (test code = Alk Phos) 98 39-136 [place] [address]-07-13 09:48:00 Test Item Value Reference Range Interpretation Comments Bili Total (test code = Bili Total) 0.5 0.2-1.[address]07-13 09:48:00 Test Item Value Reference Range Interpretation Comments B/C Ratio (test code = B/C Ratio) 30 1 6-[address]07-13 09:48:00 Test Item Value Reference Range Interpretation Comments Globulin (test code = Globulin) 3.3 2.7-4.[address]07-13 09:48:00 Test Item Value Reference Range Interpretation Comments A/G Ratio (test code = A/G Ratio) 0.8 1 0.7-1.[address]07-13 09:48:00 Test Item Value Reference Range Interpretation Comments Total Protein (test code = Total 5.9 6.4-8.4 Protein) [address]07-13 09:48:00 Test Item Value Reference Range Interpretation Comments Albumin Lvl (test code = Albumin Lvl) 2.6 3.5-5.[address]07-13 09:48:00 Test Item Value Reference Range Interpretation Comments ALT (test code = ALT) 32 See_Comment [Auto mated message] The system which ge nerated this result transmit timmy reference range : <=65. The reference range was not used to interpr et this result as katja l/abnormal. [address]07-13 09:48:00 Test Item Value Reference Range Interpretation Comments AST (test code = AST) 46 See_Comment [Auto mated message] The system which ge nerated this result transmit timmy reference range : <=37. The reference range was not used to interpr et this result as katja l/abnormal. [place] 137583-07-13 09:48:00 Test Item Value Reference Range Interpretation Comments Alk Phos (test code = Alk Phos) 98 39-136 [place] 137583-07-13 09:48:00 Test Item Value Reference Range Interpretation Comments Bili Total (test code = Bili Total) 0.5 0.2-1.3 [place] [address]-07-13 09:48:00 Test Item Value Reference Range Interpretation Comments B/C Ratio (test code = B/C Ratio) 30 1 6-25 [place] [address]-07-13 09:48:00 Test Item Value Reference Range Interpretation Comments Globulin (test code = Globulin) 3.3 2.7-4.2 [place] [address]-07-13 09:48:00 Test Item Value Reference Range Interpretation Comments A/G Ratio (test code = A/G Ratio) 0.8 1 0.7-1.6 [place] [address]-07-13 09:48:00 Test Item Value Reference Range Interpretation Comments Total Protein (test code = Total 5.9 6.4-8.4 Protein) [place] [address]-07-13 09:48:00 Test Item Value Reference Range Interpretation Comments Albumin Lvl (test code = Albumin Lvl) 2.6 3.5-5.0 [place] [address]-07-13 09:48:00 Test Item Value Reference Range Interpretation Comments ALT (test code = ALT) 32 See_Comment [Auto mated message] The system which ge nerated this result transmit timmy reference range : <=65. The reference range was not used to interpr et this result as katja l/abnormal. [place] [address]-07-13 09:48:00 Test Item Value Reference Range Interpretation Comments AST (test code = AST) 46 See_Comment [Auto mated message] The system which ge nerated this result transmit timmy reference range : <=37. The reference range was not used to interpr et this result as katja l/abnormal. [place] [address]-07-13 09:48:00 Test Item Value Reference Range Interpretation Comments Alk Phos (test code = Alk Phos) 98 39-136 [place] [address]-07-13 09:48:00 Test Item Value Reference Range Interpretation Comments Bili Total (test code = Bili Total) 0.5 0.2-1.3 [place] [address]-07-13 09:48:00 Test Item Value Reference Range Interpretation Comments B/C Ratio (test code = B/C Ratio) 30 1 6-25 [place] [address]-07-13 09:48:00 Test Item Value Reference Range Interpretation Comments Globulin (test code = Globulin) 3.3 2.7-4.2 [place] [address]-07-13 09:48:00 Test Item Value Reference Range Interpretation Comments A/G Ratio (test code = A/G Ratio) 0.8 1 0.7-1.6 [place] [address]-07-13 09:48:00 Test Item Value Reference Range Interpretation Comments Total Protein (test code = Total 5.9 6.4-8.4 Protein) [place] [address]-07-13 09:48:00 Test Item Value Reference Range Interpretation Comments Albumin Lvl (test code = Albumin Lvl) 2.6 3.5-5.0 [place] 137583-07-13 09:48:00 Test Item Value Reference Range Interpretation Comments ALT (test code = ALT) 32 See_Comment [Auto mated message] The system which ge nerated this result transmit timmy reference range : <=65. The reference range was not used to interpr et this result as katja l/abnormal. [facility] [id number] 09:48:00 Test Item Value Reference Range Interpretation Comments AST (test code = AST) 46 See_Comment [Auto mated message] The system which ge nerated this result transmit timmy reference range : <=37. The reference range was not used to interpr et this result as katja l/abnormal. [facility] [id number] 09:48:00 Test Item Value Reference Range Interpretation Comments Alk Phos (test code = Alk Phos) 98 39-136 [facility] [id number] 09:48:00 Test Item Value Reference Range Interpretation Comments Bili Total (test code = Bili Total) 0.5 0.2-1.3 [facility] [id number] 09:48:00 Test Item Value Reference Range Interpretation Comments B/C Ratio (test code = B/C Ratio) 30 1 6-25 [facility] [id number] 09:48:00 Test Item Value Reference Range Interpretation Comments Globulin (test code = Globulin) 3.3 2.7-4.2 [facility] [id number] 09:48:00 Test Item Value Reference Range Interpretation Comments A/G Ratio (test code = A/G Ratio) 0.8 1 0.7-1.6 [place] 405823-07-13 09:48:00 Test Item Value Reference Range Interpretation Comments Total Protein (test code = Total 5.9 6.4-8.4 Protein) [place] [address]-07-13 09:48:00 Test Item Value Reference Range Interpretation Comments Albumin Lvl (test code = Albumin Lvl) 2.6 3.5-5.0 [place] 405823-07-13 09:48:00 Test Item Value Reference Range Interpretation Comments ALT (test code = ALT) 32 See_Comment [Auto mated message] The system which ge nerated this result transmit timmy reference range : <=65. The reference range was not used to interpr et this result as katja l/abnormal. [place] 405823-07-13 09:48:00 Test Item Value Reference Range Interpretation Comments AST (test code = AST) 46 See_Comment [Auto mated message] The system which ge nerated this result transmit timmy reference range : <=37. The reference range was not used to interpr et this result as katja l/abnormal. [id number] 09:48:00 Test Item Value Reference Range Interpretation Comments Alk Phos (test code = Alk Phos) 98 39-136 [facility] HospitalHqpnrapPPLTZXAFU2912-90-31 09:48:00 Test Item Value Reference Range Interpretation Comments Bili Total (test code = Bili Total) 0.5 0.2-1.3 [place] [address]-07-13 09:48:00 Test Item Value Reference Range Interpretation Comments B/C Ratio (test code = B/C Ratio) 30 1 6-25 [place] 405823-07-13 09:48:00 Test Item Value Reference Range Interpretation Comments Globulin (test code = Globulin) 3.3 2.7-4.2 [place] [address]-07-13 09:48:00 Test Item Value Reference Range Interpretation Comments A/G Ratio (test code = A/G Ratio) 0.8 1 0.7-1.6 [place] [address]-07-13 09:48:00 Test Item Value Reference Range Interpretation Comments Total Protein (test code = Total 5.9 6.4-8.4 Protein) [place] [address]-07-13 09:48:00 Test Item Value Reference Range Interpretation Comments Albumin Lvl (test code = Albumin Lvl) 2.6 3.5-5.[address]07-13 09:48:00 Test Item Value Reference Range Interpretation Comments ALT (test code = ALT) 32 <=65 [place] [address]-07-13 09:48:00 Test Item Value Reference Range Interpretation Comments AST (test code = AST) 46 <=37 [place] [address]-07-13 09:48:00 Test Item Value Reference Range Interpretation Comments Alk Phos (test code = Alk Phos) 98 39-136 [place] [address]-07-13 09:48:00 Test Item Value Reference Range Interpretation Comments Bili Total (test code = Bili Total) 0.5 0.2-1.3 [place] [address]-07-13 09:48:00 Test Item Value Reference Range Interpretation Comments B/C Ratio (test code = B/C Ratio) 30 1 6-25 [place] [address]-07-13 09:48:00 Test Item Value Reference Range Interpretation Comments Globulin (test code = Globulin) 3.3 2.7-4.2 [place] [address]-07-13 09:48:00 Test Item Value Reference Range Interpretation Comments A/G Ratio (test code = A/G Ratio) 0.8 1 0.7-1.6 [place] [address]-07-13 09:48:00 Test Item Value Reference Range Interpretation Comments Total Protein (test code = Total 5.9 6.4-8.4 Protein) [place] [address]-07-13 09:48:00 Test Item Value Reference Range Interpretation Comments Albumin Lvl (test code = Albumin Lvl) 2.6 3.5-5.0 [place] [address]-07-13 09:48:00 Test Item Value Reference Range Interpretation Comments ALT (test code = ALT) 32 <=65 [place] [address]-07-13 09:48:00 Test Item Value Reference Range Interpretation Comments AST (test code = AST) 46 <=37 [place] 405823-07-13 09:48:00 Test Item Value Reference Range Interpretation Comments Alk Phos (test code = Alk Phos) 98 39-136 [facility] H[id number] 09:48:00 Test Item Value Reference Range Interpretation Comments Bili Total (test code = Bili Total) 0.5 0.2-1.3 [place] [address]-07-13 09:48:00 Test Item Value Reference Range Interpretation Comments B/C Ratio (test code = B/C Ratio) 30 1 6-25 [place] 405823-07-13 09:48:00 Test Item Value Reference Range Interpretation Comments Globulin (test code = Globulin) 3.3 2.7-4.2 [place] 405823-07-13 09:48:00 Test Item Value Reference Range Interpretation Comments A/G Ratio (test code = A/G Ratio) 0.8 1 0.7-1.6 [place] 137583-07-13 09:48:00 Test Item Value Reference Range Interpretation Comments Total Protein (test code = Total 5.9 6.4-8.4 Protein) [place] 137583-07-13 09:48:00 Test Item Value Reference Range Interpretation Comments Albumin Lvl (test code = Albumin Lvl) 2.6 3.5-5.0 [place] 137583-07-13 09:48:00 Test Item Value Reference Range Interpretation Comments ALT (test code = ALT) 32 <=65 [place] 137583-07-13 09:48:00 Test Item Value Reference Range Interpretation Comments AST (test code = AST) 46 <=37 [place] 137583-07-13 09:48:00 Test Item Value Reference Range Interpretation Comments Alk Phos (test code = Alk Phos) 98 39-136 [place] 137583-07-13 09:48:00 Test Item Value Reference Range Interpretation Comments Bili Total (test code = Bili Total) 0.5 0.2-1.3 [facility]2023-07-13 09:48:00 Test Item Value Reference Range Interpretation Comments B/C Ratio (test code = B/C Ratio) 30 1 6-25 [facility] [id number] 09:48:00 Test Item Value Reference Range Interpretation Comments Globulin (test code = Globulin) 3.3 2.7-4.2 [facility]2023-07-13 09:48:00 Test Item Value Reference Range Interpretation Comments A/G Ratio (test code = A/G Ratio) 0.8 1 0.7-1.6 [place] [address]-07-13 09:48:00 Test Item Value Reference Range Interpretation Comments Total Protein (test code = Total 5.9 6.4-8.4 Protein) [facility] HospitalCjjinyfGQGJEYWSG6903-98-50 09:48:00 Test Item Value Reference Range Interpretation Comments Albumin Lvl (test code = Albumin Lvl) 2.6 3.5-5.0 [facility] HospitalEpbdftaPKETBIHOG2597-75-50 09:48:00 Test Item Value Reference Range Interpretation Comments ALT (test code = ALT) 32 <=65 [facility] HospitalKganspaNRITUZBML2780-51-44 09:48:00 Test Item Value Reference Range Interpretation Comments AST (test code = AST) 46 <=37 [facility] HospitalLuxdezdEEAMZBSGI5463-71-44 09:48:00 Test Item Value Reference Range Interpretation Comments Alk Phos (test code = Alk Phos) 98 39-136 [facility] HospitalNseamqnPTYHNVRWE9633-40-41 09:48:00 Test Item Value Reference Range Interpretation Comments Bili Total (test code = Bili Total) 0.5 0.2-1.3 [facility] HospitalEujtqpqKYLREFLCD4533-58-42 09:48:00 Test Item Value Reference Range Interpretation Comments B/C Ratio (test code = B/C Ratio) 30 1 -25 [facility] HospitalDaxjobsSNCZXCLYY6240-34-00 09:48:00 Test Item Value Reference Range Interpretation Comments Globulin (test code = Globulin) 3.3 2.7-4.2 [place] [address]-07-13 09:48:00 Test Item Value Reference Range Interpretation Comments A/G Ratio (test code = A/G Ratio) 0.8 1 0.7-1.6 [facility] [id number] 04:40:00 Test Item Value Reference Range Interpretation Comments HS Troponin I (test code = HS Troponin 6 I) [facility] McallenUjnrcqsVLQCAUGEC1035-77-47 04:40:00 Test Item Value Reference Range Interpretation Comments HS Troponin I (test code = HS Troponin 6 I) [facility] [employer] [id number] 04:40:00 Test Item Value Reference Range Interpretation Comments HS Troponin I (test code = HS Troponin 6 I) [facility] [id number] 04:40:00 Test Item Value Reference Range Interpretation Comments HS Troponin I (test code = HS Troponin 6 I) [facility] [employer] [id number] 04:40:00 Test Item Value Reference Range Interpretation Comments HS Troponin I (test code = HS Troponin 6 I) [facility] [id number] 04:40:00 Test Item Value Reference Range Interpretation Comments HS Troponin I (test code = HS Troponin 6 I) [facility] [employer] [id number] 04:40:00 Test Item Value Reference Range Interpretation Comments HS Troponin I (test code = HS Troponin 6 I) [facility] McallenPulmrfkJOEZFVRYQ2672-74-53 04:40:00 Test Item Value Reference Range Interpretation Comments HS Troponin I (test code = HS Troponin 6 I) [facility] [employer] [id number] 04:40:00 Test Item Value Reference Range Interpretation Comments HS Troponin I (test code = HS Troponin 6 I) [facility] McallenSbcykeaGJAVKRQKJ9836-40-98 04:40:00 Test Item Value Reference Range Interpretation Comments HS Troponin I (test code = HS Troponin 6 I) [facility] [employer] [facility] [id number] 23:23:00 Test Item Value Reference Range Interpretation Comments RBC product (test code Product available = RBC product) 6(03/22/23 6:23 PM) [facility] [employer] [id number] 23:23:00 Test Item Value Reference Range Interpretation Comments RBC product (test code Product available = RBC product) 5(03/22/23 6:23 PM) [facility] [employer] [id number] 23:23:00 Test Item Value Reference Range Interpretation Comments RBC product (test code Product available = RBC product) 6(03/22/23 6:23 PM) [facility] [id number] 23:23:00 Test Item Value Reference Range Interpretation Comments RBC product (test code Product available = RBC product) 5(03/22/23 6:23 PM) [facility] [id number] 23:23:00 Test Item Value Reference Range Interpretation Comments RBC product (test code Product available = RBC product) 6(03/22/23 6:23 PM) [facility] [id number] 23:23:00 Test Item Value Reference Range Interpretation Comments RBC product (test code Product available = RBC product) 5(03/22/23 6:23 PM) [facility] [id number] 23:23:00 Test Item Value Reference Range Interpretation Comments RBC product (test code Product available = RBC product) 6(03/22/23 6:23 PM) [facility] [id number] 23:23:00 Test Item Value Reference Range Interpretation Comments RBC product (test code Product available = RBC product) 5(03/22/23 6:23 PM) [facility] [id number] 23:23:00 Test Item Value Reference Range Interpretation Comments RBC product (test code Product available = RBC product) 6(03/22/23 6:23 PM) [facility] [id number] 23:23:00 Test Item Value Reference Range Interpretation Comments RBC product (test code Product available = RBC product) 5(03/22/23 6:23 PM) [facility] [id number] 10:22:00 Test Item Value Reference Range Interpretation Comments B/C Ratio (test code = B/C Ratio) 27 1 6-25 [facility] [id number] 10:22:00 Test Item Value Reference Range Interpretation Comments Total Protein (test code = Total 5.7 6.4-8.4 Protein) [facility] [id number] 10:22:00 Test Item Value Reference Range Interpretation Comments Albumin Lvl (test code = Albumin Lvl) 2.6 3.5-5.0 [facility] [id number] 10:22:00 Test Item Value Reference Range Interpretation Comments Globulin (test code = Globulin) 3.1 2.7-4.2 [place] 137583-07-12 10:22:00 Test Item Value Reference Range Interpretation Comments A/G Ratio (test code = A/G Ratio) 0.8 1 0.7-1.6 [place] [address]-07-12 10:22:00 Test Item Value Reference Range Interpretation Comments ALT (test code = ALT) 26 <=65 [place] [address]-07-12 10:22:00 Test Item Value Reference Range Interpretation Comments AST (test code = AST) 39 <=37 [place] 137583-07-12 10:22:00 Test Item Value Reference Range Interpretation Comments Alk Phos (test code = Alk Phos) 67 39-136 [place] 137583-07-12 10:22:00 Test Item Value Reference Range Interpretation Comments Bili Total (test code = Bili Total) 0.3 0.2-1.3 [place] [address]-07-12 10:22:00 Test Item Value Reference Range Interpretation Comments B/C Ratio (test code = B/C Ratio) 27 1 6-25 [place] [address]-07-12 10:22:00 Test Item Value Reference Range Interpretation Comments Total Protein (test code = Total 5.7 6.4-8.4 Protein) [place] 137583-07-12 10:22:00 Test Item Value Reference Range Interpretation Comments Albumin Lvl (test code = Albumin Lvl) 2.6 3.5-5.0 [place] [address]-07-12 10:22:00 Test Item Value Reference Range Interpretation Comments Globulin (test code = Globulin) 3.1 2.7-4.2 [place] [address]-07-12 10:22:00 Test Item Value Reference Range Interpretation Comments A/G Ratio (test code = A/G Ratio) 0.8 1 0.7-1.6 [place] [address]-07-12 10:22:00 Test Item Value Reference Range Interpretation Comments ALT (test code = ALT) 26 See_Comment [Auto mated message] The system which ge nerated this result transmit timmy reference range : <=65. The reference range was not used to interpr et this result as katja l/abnormal. [place] [address]-07-12 10:22:00 Test Item Value Reference Range Interpretation Comments AST (test code = AST) 39 See_Comment [Auto mated message] The system which ge nerated this result transmit timmy reference range : <=37. The reference range was not used to interpr et this result as katja l/abnormal. [place] [address]-07-12 10:22:00 Test Item Value Reference Range Interpretation Comments Alk Phos (test code = Alk Phos) 67 39-136 [place] [address]-07-12 10:22:00 Test Item Value Reference Range Interpretation Comments Bili Total (test code = Bili Total) 0.3 0.2-1.[address]07-12 10:22:00 Test Item Value Reference Range Interpretation Comments B/C Ratio (test code = B/C Ratio) 27 1 6-[address]07-12 10:22:00 Test Item Value Reference Range Interpretation Comments Total Protein (test code = Total 5.7 6.4-8.4 Protein) [address]07-12 10:22:00 Test Item Value Reference Range Interpretation Comments Albumin Lvl (test code = Albumin Lvl) 2.6 3.5-5.[address]07-12 10:22:00 Test Item Value Reference Range Interpretation Comments Globulin (test code = Globulin) 3.1 2.7-4.[address]07-12 10:22:00 Test Item Value Reference Range Interpretation Comments A/G Ratio (test code = A/G Ratio) 0.8 1 0.7-1.[address]07-12 10:22:00 Test Item Value Reference Range Interpretation Comments ALT (test code = ALT) 26 See_Comment [Auto mated message] The system which ge nerated this result transmit timmy reference range : <=65. The reference range was not used to interpr et this result as katja l/abnormal. [facility] [id number] 10:22:00 Test Item Value Reference Range Interpretation Comments AST (test code = AST) 39 See_Comment [Auto mated message] The system which ge nerated this result transmit timmy reference range : <=37. The reference range was not used to interpr et this result as katja l/abnormal. [facility] [id number] 10:22:00 Test Item Value Reference Range Interpretation Comments Alk Phos (test code = Alk Phos) 67 39-136 [facility]2023-07-12 10:22:00 Test Item Value Reference Range Interpretation Comments Bili Total (test code = Bili Total) 0.3 0.2-1.3 [place] 137583-07-12 10:22:00 Test Item Value Reference Range Interpretation Comments B/C Ratio (test code = B/C Ratio) 27 1 6-25 [facility]reesJACQU[place] [id number] 10:22:00 Test Item Value Reference Range Interpretation Comments Total Protein (test code = Total 5.7 6.4-8.4 Protein) [facility]reesJACQU[place] [id number] 10:22:00 Test Item Value Reference Range Interpretation Comments Albumin Lvl (test code = Albumin Lvl) 2.6 3.5-5.0 [facility]2023-07-12 10:22:00 Test Item Value Reference Range Interpretation Comments Globulin (test code = Globulin) 3.1 2.7-4.2 [facility]TrustDegreesJACQUEL[place] [id number] 10:22:00 Test Item Value Reference Range Interpretation Comments A/G Ratio (test code = A/G Ratio) 0.8 1 0.7-1.6 [place] 137583-07-12 10:22:00 Test Item Value Reference Range Interpretation Comments ALT (test code = ALT) 26 <=65 [place] 137583-07-12 10:22:00 Test Item Value Reference Range Interpretation Comments AST (test code = AST) 39 <=37 [facility]2023-07-12 10:22:00 Test Item Value Reference Range Interpretation Comments Alk Phos (test code = Alk Phos) 67 39-136 [facility]2023-07-12 10:22:00 Test Item Value Reference Range Interpretation Comments Bili Total (test code = Bili Total) 0.3 0.2-1.3 [facility] [id number] 10:22:00 Test Item Value Reference Range Interpretation Comments B/C Ratio (test code = B/C Ratio) 27 1 6-25 [facility]2023-07-12 10:22:00 Test Item Value Reference Range Interpretation Comments Total Protein (test code = Total 5.7 6.4-8.4 Protein) [facility]2023-07-12 10:22:00 Test Item Value Reference Range Interpretation Comments Albumin Lvl (test code = Albumin Lvl) 2.6 3.5-5.0 [facility]2023-07-12 10:22:00 Test Item Value Reference Range Interpretation Comments Globulin (test code = Globulin) 3.1 2.7-4.2 [facility]2023-07-12 10:22:00 Test Item Value Reference Range Interpretation Comments A/G Ratio (test code = A/G Ratio) 0.8 1 0.7-1.6 [facility]2023-07-12 10:22:00 Test Item Value Reference Range Interpretation Comments ALT (test code = ALT) 26 <=65 [facility]2023-07-12 10:22:00 Test Item Value Reference Range Interpretation Comments AST (test code = AST) 39 <=37 [facility]2023-07-12 10:22:00 Test Item Value Reference Range Interpretation Comments Alk Phos (test code = Alk Phos) 67 39-136 [facility]2023-07-12 10:22:00 Test Item Value Reference Range Interpretation Comments Bili Total (test code = Bili Total) 0.3 0.2-1.3 [facility] [id number] 13:10:00 Test Item Value Reference Range Interpretation Comments RBC product (test code Product available = RBC product) (03/21/23 8:10 AM) [facility] [id number] 13:10:00 Test Item Value Reference Range Interpretation Comments RBC product (test code Product available = RBC product) (03/21/23 8:10 AM) [facility] [id number] 13:10:00 Test Item Value Reference Range Interpretation Comments RBC product (test code Product available = RBC product) (03/21/23 8:10 AM) [facility] [id number] 13:10:00 Test Item Value Reference Range Interpretation Comments RBC product (test code Product available = RBC product) (03/21/23 8:10 AM) [facility] [id number] 13:10:00 Test Item Value Reference Range Interpretation Comments RBC product (test code Product available = RBC product) (03/21/23 8:10 AM) [facility] [id number] 08:28:00 Test Item Value Reference Range Interpretation Comments B/C Ratio (test code = B/C Ratio) 26 1 6-25 [facility]2023-07-11 08:28:00 Test Item Value Reference Range Interpretation Comments Total Protein (test code = Total 5.8 6.4-8.4 Protein) [facility]2023-07-11 08:28:00 Test Item Value Reference Range Interpretation Comments Albumin Lvl (test code = Albumin Lvl) 2.9 3.5-5.0 [facility]2023-07-11 08:28:00 Test Item Value Reference Range Interpretation Comments Globulin (test code = Globulin) 2.9 2.7-4.2 [facility] [id number] 08:28:00 Test Item Value Reference Range Interpretation Comments A/G Ratio (test code = A/G Ratio) 1.0 1 0.7-1.6 [facility]2023-07-11 08:28:00 Test Item Value Reference Range Interpretation Comments ALT (test code = ALT) 17 <=65 [facility] [id number] 08:28:00 Test Item Value Reference Range Interpretation Comments AST (test code = AST) 15 <=37 [facility] [id number] 08:28:00 Test Item Value Reference Range Interpretation Comments Alk Phos (test code = Alk Phos) 56 39-136 [facility]2023-07-11 08:28:00 Test Item Value Reference Range Interpretation Comments Bili Total (test code = Bili Total) 0.8 0.2-1.3 [facility]sa[facility]NIADSYULM6989-14-54 08:28:00 Test Item Value Reference Range Interpretation Comments Basophils # (test code = Basophils #) 0.1 <=0.2 [facility] CenterZkbsdckBVEDHWLNYN7576-58-10 08:28:00 Test Item Value Reference Range Interpretation Comments Basophils # (test code = Basophils #) 0.1 <=0.2 [place] [address]-07-11 08:28:00 Test Item Value Reference Range Interpretation Comments B/C Ratio (test code = B/C Ratio) 26 1 6-25 [place] [address]-07-11 08:28:00 Test Item Value Reference Range Interpretation Comments Total Protein (test code = Total 5.8 6.4-8.4 Protein) [place] [address]-07-11 08:28:00 Test Item Value Reference Range Interpretation Comments Albumin Lvl (test code = Albumin Lvl) 2.9 3.5-5.0 [place] [address]-07-11 08:28:00 Test Item Value Reference Range Interpretation Comments Globulin (test code = Globulin) 2.9 2.7-4.2 [place] [address]-07-11 08:28:00 Test Item Value Reference Range Interpretation Comments A/G Ratio (test code = A/G Ratio) 1.0 1 0.7-1.6 [place] [address]-07-11 08:28:00 Test Item Value Reference Range Interpretation Comments ALT (test code = ALT) 17 See_Comment [Auto mated message] The system which ge nerated this result transmit timmy reference range : <=65. The reference range was not used to interpr et this result as katja l/abnormal. [place] 137583-07-11 08:28:00 Test Item Value Reference Range Interpretation Comments AST (test code = AST) 15 See_Comment [Auto mated message] The system which ge nerated this result transmit timmy reference range : <=37. The reference range was not used to interpr et this result as katja l/abnormal. [place] 137583-07-11 08:28:00 Test Item Value Reference Range Interpretation Comments Alk Phos (test code = Alk Phos) 56 39-136 [place] [address]-07-11 08:28:00 Test Item Value Reference Range Interpretation Comments Bili Total (test code = Bili Total) 0.8 0.2-1.3 [place] 783853-07-11 08:28:00 Test Item Value Reference Range Interpretation Comments Basophils # (test code 0.1 See_Comment [Aut omated message] The = Basophils #) system which generated this result tra nsmitted reference range : <=0.2. The reference r vasile was not used to int erpret this result as normal/abnormal . [place] 783853-07-11 08:28:00 Test Item Value Reference Range Interpretation Comments Basophils # (test code 0.1 See_Comment [Aut omated message] The = Basophils #) system which generated this result tra nsmitted reference range : <=0.2. The reference r vasile was not used to int erpret this result as normal/abnormal . [place] [address]-07-11 08:28:00 Test Item Value Reference Range Interpretation Comments B/C Ratio (test code = B/C Ratio) 26 1 6-25 [place] [address]-07-11 08:28:00 Test Item Value Reference Range Interpretation Comments Total Protein (test code = Total 5.8 6.4-8.4 Protein) [place] [address]-07-11 08:28:00 Test Item Value Reference Range Interpretation Comments Albumin Lvl (test code = Albumin Lvl) 2.9 3.5-5.0 [place] [address]-07-11 08:28:00 Test Item Value Reference Range Interpretation Comments Globulin (test code = Globulin) 2.9 2.7-4.2 [place] [address]-07-11 08:28:00 Test Item Value Reference Range Interpretation Comments A/G Ratio (test code = A/G Ratio) 1.0 1 0.7-1.6 [place] [address]-07-11 08:28:00 Test Item Value Reference Range Interpretation Comments ALT (test code = ALT) 17 See_Comment [Auto mated message] The system which ge nerated this result transmit timmy reference range : <=65. The reference range was not used to interpr et this result as katja l/abnormal. [facility] [id number] 08:28:00 Test Item Value Reference Range Interpretation Comments AST (test code = AST) 15 See_Comment [Auto mated message] The system which ge nerated this result transmit timmy reference range : <=37. The reference range was not used to interpr et this result as katja l/abnormal. [facility] [id number] 08:28:00 Test Item Value Reference Range Interpretation Comments Alk Phos (test code = Alk Phos) 56 39-136 [facility] [id number] 08:28:00 Test Item Value Reference Range Interpretation Comments Bili Total (test code = Bili Total) 0.8 0.2-1.3 [place] 783853-07-11 08:28:00 Test Item Value Reference Range Interpretation Comments Basophils # (test code 0.1 See_Comment [Aut omated message] The = Basophils #) system which generated this result tra nsmitted reference range : <=0.2. The reference r vasile was not used to int erpret this result as normal/abnormal . [id number] 08:28:00 Test Item Value Reference Range Interpretation Comments Basophils # (test code 0.1 See_Comment [Aut omated message] The = Basophils #) system which generated this result tra nsmitted reference range : <=0.2. The reference r vasile was not used to int erpret this result as normal/abnormal . [facility] [id number] 08:28:00 Test Item Value Reference Range Interpretation Comments B/C Ratio (test code = B/C Ratio) 26 1 6-25 [facility] [id number] 08:28:00 Test Item Value Reference Range Interpretation Comments Total Protein (test code = Total 5.8 6.4-8.4 Protein) [facility] [id number] 08:28:00 Test Item Value Reference Range Interpretation Comments Albumin Lvl (test code = Albumin Lvl) 2.9 3.5-5.0 [facility] [id number] 08:28:00 Test Item Value Reference Range Interpretation Comments Globulin (test code = Globulin) 2.9 2.7-4.2 [facility] [employer] [id number] 08:28:00 Test Item Value Reference Range Interpretation Comments A/G Ratio (test code = A/G Ratio) 1.0 1 0.7-1.6 [facility] [id number] 08:28:00 Test Item Value Reference Range Interpretation Comments ALT (test code = ALT) 17 <=65 [facility] [id number] 08:28:00 Test Item Value Reference Range Interpretation Comments AST (test code = AST) 15 <=37 [facility]2023-07-11 08:28:00 Test Item Value Reference Range Interpretation Comments Alk Phos (test code = Alk Phos) 56 39-136 [facility]2023-07-11 08:28:00 Test Item Value Reference Range Interpretation Comments Bili Total (test code = Bili Total) 0.8 0.2-1.3 [place] 783853-07-11 08:28:00 Test Item Value Reference Range Interpretation Comments Basophils # (test code = Basophils #) 0.1 <=0.2 [place] [address]-07-11 08:28:00 Test Item Value Reference Range Interpretation Comments Basophils # (test code = Basophils #) 0.1 <=0.2 [place] 137583-07-11 08:28:00 Test Item Value Reference Range Interpretation Comments B/C Ratio (test code = B/C Ratio) 26 1 6-25 [place] 137583-07-11 08:28:00 Test Item Value Reference Range Interpretation Comments Total Protein (test code = Total 5.8 6.4-8.4 Protein) [place] 137583-07-11 08:28:00 Test Item Value Reference Range Interpretation Comments Albumin Lvl (test code = Albumin Lvl) 2.9 3.5-5.0 [place] 137583-07-11 08:28:00 Test Item Value Reference Range Interpretation Comments Globulin (test code = Globulin) 2.9 2.7-4.2 [facility]2023-07-11 08:28:00 Test Item Value Reference Range Interpretation Comments A/G Ratio (test code = A/G Ratio) 1.0 1 0.7-1.6 [place] 137583-07-11 08:28:00 Test Item Value Reference Range Interpretation Comments ALT (test code = ALT) 17 <=65 [place] 137583-07-11 08:28:00 Test Item Value Reference Range Interpretation Comments AST (test code = AST) 15 <=37 [place] 137583-07-11 08:28:00 Test Item Value Reference Range Interpretation Comments Alk Phos (test code = Alk Phos) 56 39-136 [place] 137583-07-11 08:28:00 Test Item Value Reference Range Interpretation Comments Bili Total (test code = Bili Total) 0.8 0.2-1.3 [facility]DwvdasjSRJODZVQSD3078-24-88 08:28:00 Test Item Value Reference Range Interpretation Comments Basophils # (test code = Basophils #) 0.1 <=0.2 [facility] CenterSzgwmnvTROSMCTYDS9351-34-14 08:28:00 Test Item Value Reference Range Interpretation Comments Basophils # (test code = Basophils #) 0.1 <=0.2 [facility] [id number] 14:08:00 Test Item Value Reference Range Interpretation Comments RBC product (test code Product available = RBC product) (03/20/23 9:08 AM) [facility]2023-07-10 14:08:00 Test Item Value Reference Range Interpretation Comments RBC product (test code Product available = RBC product) (03/20/23 9:08 AM) [facility]2023-07-10 14:08:00 Test Item Value Reference Range Interpretation Comments RBC product (test code Product available = RBC product) (03/20/23 9:08 AM) [facility] [id number] 14:08:00 Test Item Value Reference Range Interpretation Comments RBC product (test code Product available = RBC product) (03/20/23 9:08 AM) [facility]2023-07-10 14:08:00 Test Item Value Reference Range Interpretation Comments RBC product (test code Product available = RBC product) (03/20/23 9:08 AM) [facility]zqxFLRMDFLYQ3692-49-22 13:41:00 Test Item Value Reference Range Interpretation Comments TSH (test code = TSH) 6.450 0.360-3.740 [facility] HospitalFkmuelbUTFZMCXPV2352-32-25 13:41:00 Test Item Value Reference Range Interpretation Comments T4 Free (test code = T4 Free) 0.83 0.76-1.46 [facility]VusxdtxRNOYFXVLYS1362-05-89 13:41:00 Test Item Value Reference Range Interpretation Comments RBC Morph (test code = Normal (03/20/23 8:41 RBC Morph) AM) [facility] CenterPwexhumWPPIJXTTMV2640-89-23 13:41:00 Test Item Value Reference Range Interpretation Comments Plt Morph (test code = Normal (03/20/23 8:41 Plt Morph) AM) [facility] CenterCdivptmKEUMTPKDDZ6986-32-34 13:41:00 Test Item Value Reference Range Interpretation Comments RBC Morph (test code = Normal (03/20/23 8:41 RBC Morph) AM) [facility] CenterZlmdgzdGULREUEDGN4279-01-63 13:41:00 Test Item Value Reference Range Interpretation Comments Plt Morph (test code = Normal (03/20/23 8:41 Plt Morph) AM) [facility] HospitalLvrdvezCUKZSFSEZ9246-06-99 13:41:00 Test Item Value Reference Range Interpretation Comments TSH (test code = TSH) 6.450 0.360-3.740 [facility] HospitalQjkngkxVWARIBNOW6077-02-77 13:41:00 Test Item Value Reference Range Interpretation Comments T4 Free (test code = T4 Free) 0.83 0.76-1.46 [facility] CenterAfdnzagTLCLEZRFPP7783-21-62 13:41:00 Test Item Value Reference Range Interpretation Comments RBC Morph (test code = Normal (03/20/23 8:41 RBC Morph) AM) [facility] CenterWcwautwXKYGIWQHSA6338-97-88 13:41:00 Test Item Value Reference Range Interpretation Comments Plt Morph (test code = Normal (03/20/23 8:41 Plt Morph) AM) [facility] CenterEpqqkxgTYYIUPTCEJ2711-17-10 13:41:00 Test Item Value Reference Range Interpretation Comments RBC Morph (test code = Normal (03/20/23 8:41 RBC Morph) AM) [facility] CenterTpfsttyYPBLPGRTUH8333-53-81 13:41:00 Test Item Value Reference Range Interpretation Comments Plt Morph (test code = Normal (03/20/23 8:41 Plt Morph) AM) [facility] HospitalIhmhprxDBKLSJIHE2464-61-16 13:41:00 Test Item Value Reference Range Interpretation Comments TSH (test code = TSH) 6.450 0.360-3.740 [facility] HospitalRmoborcXNJSDMYMN2971-53-11 13:41:00 Test Item Value Reference Range Interpretation Comments T4 Free (test code = T4 Free) 0.83 0.76-1.46 [facility] CenterEjsrhtyZQLRFZGTVS1506-06-97 13:41:00 Test Item Value Reference Range Interpretation Comments RBC Morph (test code = Normal (03/20/23 8:41 RBC Morph) AM) [facility] CenterKpjcilsHPVFCLPUMS3390-94-43 13:41:00 Test Item Value Reference Range Interpretation Comments Plt Morph (test code = Normal (03/20/23 8:41 Plt Morph) AM) [facility] CenterKsnutqzFCVXBZCMJN1392-48-30 13:41:00 Test Item Value Reference Range Interpretation Comments RBC Morph (test code = Normal (03/20/23 8:41 RBC Morph) AM) [facility] CenterVlxgrteWJDEZJRLMZ4483-41-48 13:41:00 Test Item Value Reference Range Interpretation Comments Plt Morph (test code = Normal (03/20/23 8:41 Plt Morph) AM) [facility] HospitalPtfjpftJCWZDIASL4498-79-60 13:41:00 Test Item Value Reference Range Interpretation Comments TSH (test code = TSH) 6.450 0.360-3.740 [facility] HospitalNubzxriPDIYNSZVW2663-25-68 13:41:00 Test Item Value Reference Range Interpretation Comments T4 Free (test code = T4 Free) 0.83 0.76-1.46 [facility] CenterHszzlqrNNWPSBTCEF0464-97-60 13:41:00 Test Item Value Reference Range Interpretation Comments RBC Morph (test code = Normal (03/20/23 8:41 RBC Morph) AM) [facility] CenterGabhmpgBIKCYXFEXX4015-76-11 13:41:00 Test Item Value Reference Range Interpretation Comments Plt Morph (test code = Normal (03/20/23 8:41 Plt Morph) AM) [facility] CenterVkbbqcsSAVSZXHFVH7563-46-74 13:41:00 Test Item Value Reference Range Interpretation Comments RBC Morph (test code = Normal (03/20/23 8:41 RBC Morph) AM) [facility] CenterBcoqhtpZSSFGHZYYF5133-40-13 13:41:00 Test Item Value Reference Range Interpretation Comments Plt Morph (test code = Normal (03/20/23 8:41 Plt Morph) AM) [facility] HospitalCmixgbsKMVYJMHIE7981-73-85 13:41:00 Test Item Value Reference Range Interpretation Comments TSH (test code = TSH) 6.450 0.360-3.740 [facility] HospitalUteoyrhEOFJASUWS5967-33-50 13:41:00 Test Item Value Reference Range Interpretation Comments T4 Free (test code = T4 Free) 0.83 0.76-1.46 [facility] CenterMusosayBCEDFKKNSO0896-90-32 13:41:00 Test Item Value Reference Range Interpretation Comments RBC Morph (test code = Normal (03/20/23 8:41 RBC Morph) AM) [facility] CenterVktdrzkBRWTGRVSVC7624-10-25 13:41:00 Test Item Value Reference Range Interpretation Comments Plt Morph (test code = Normal (03/20/23 8:41 Plt Morph) AM) [facility] CenterYgygkrjIYQAKVZDTD5106-32-37 13:41:00 Test Item Value Reference Range Interpretation Comments RBC Morph (test code = Normal (03/20/23 8:41 RBC Morph) AM) [facility] CenterHofiandLACJKCPYVZ7945-51-84 13:41:00 Test Item Value Reference Range Interpretation Comments Plt Morph (test code = Normal (03/20/23 8:41 Plt Morph) AM) [facility]2023-07-10 10:50:00 Test Item Value Reference Range Interpretation Comments Glucose POC (test code = Glucose POC) 94 70-99 [place] [address]-07-10 10:50:00 Test Item Value Reference Range Interpretation Comments Glucose POC (test code = Glucose POC) 94 70-99 [facility]2023-07-10 10:50:00 Test Item Value Reference Range Interpretation Comments Glucose POC (test code = Glucose POC) 94 70-99 [facility]2023-07-10 10:50:00 Test Item Value Reference Range Interpretation Comments Glucose POC (test code = Glucose POC) 94 70-99 [facility]2023-07-10 10:50:00 Test Item Value Reference Range Interpretation Comments Glucose POC (test code = Glucose POC) 94 70-99 [facility]2023-07-09 21:04:00 Test Item Value Reference Range Interpretation Comments Vitamin D, 25-OH, Total (test code = 32 Vitamin D, 25-OH, Total) [facility] HospitalZmsrtgsNLIKBCMXT3073-25-56 21:04:00 Test Item Value Reference Range Interpretation Comments Vitamin D, 25-OH, Total (test code = 32 30-100 Vitamin D, 25-OH, Total) [facility] HospitalXmspmhlMCGAHSSOY7283-02-37 21:04:00 Test Item Value Reference Range Interpretation Comments PTH Intact (test code = PTH Intact) 55.2 18.4-80.1 [facility] SVZMFEY9007-45-55 21:04:00 Test Item Value Reference Range Interpretation Comments PTH Intact (test code = PTH Intact) 55.2 18.4-80.1 [facility]2023-07-09 21:04:00 Test Item Value Reference Range Interpretation Comments Vitamin D, 25-OH, Total (test code = 32 Vitamin D, 25-OH, Total) [facility] HospitalZjihbrpNGZXGNCXN3255-10-43 21:04:00 Test Item Value Reference Range Interpretation Comments Vitamin D, 25-OH, Total (test code = 32 30-100 Vitamin D, 25-OH, Total) [facility] HospitalMhqcvcmFSATMCEEQ6090-35-69 21:04:00 Test Item Value Reference Range Interpretation Comments PTH Intact (test code = PTH Intact) 55.2 18.4-80.1 [facility]2023-07-09 21:04:00 Test Item Value Reference Range Interpretation Comments PTH Intact (test code = PTH Intact) 55.2 18.4-80.1 [facility]2023-07-09 21:04:00 Test Item Value Reference Range Interpretation Comments Vitamin D, 25-OH, Total (test code = 32 Vitamin D, 25-OH, Total) [facility] HospitalTyksqjxCIFGNIZSE7079-68-31 21:04:00 Test Item Value Reference Range Interpretation Comments Vitamin D, 25-OH, Total (test code = 32 30-100 Vitamin D, 25-OH, Total) [facility] HospitalBbfpejpLGKZOFXRL4358-59-89 21:04:00 Test Item Value Reference Range Interpretation Comments PTH Intact (test code = PTH Intact) 55.2 18.4-80.1 [facility]2023-07-09 21:04:00 Test Item Value Reference Range Interpretation Comments PTH Intact (test code = PTH Intact) 55.2 18.4-80.1 [facility]2023-07-09 21:04:00 Test Item Value Reference Range Interpretation Comments Vitamin D, 25-OH, Total (test code = 32 Vitamin D, 25-OH, Total) [facility] HospitalAnvpsdbQGAVBWLBF6449-02-43 21:04:00 Test Item Value Reference Range Interpretation Comments Vitamin D, 25-OH, Total (test code = 32 30-100 Vitamin D, 25-OH, Total) [place] 405823-07-09 21:04:00 Test Item Value Reference Range Interpretation Comments PTH Intact (test code = PTH Intact) 55.2 18.4-80.1 [facility]PARATHYRO[facility] MBCIUDM5255-69-83 21:04:00 Test Item Value Reference Range Interpretation Comments PTH Intact (test code = PTH Intact) 55.2 18.4-80.1 [facility]enannCHEM UJOGM1714-05-61 21:04:00 Test Item Value Reference Range Interpretation Comments Vitamin D, 25-OH, Total (test code = 32 Vitamin D, 25-OH, Total) [facility]viewEzugxveDNLFLRZWM7717-67-73 21:04:00 Test Item Value Reference Range Interpretation Comments Vitamin D, 25-OH, Total (test code = 32 30-100 Vitamin D, 25-OH, Total) [facility]viewFlehiucIZDEFNAVE3743-38-60 21:04:00 Test Item Value Reference Range Interpretation Comments PTH Intact (test code = PTH Intact) 55.2 18.4-80.1 [facility]enannPARATHYROID SOKIOEE9945-54-60 21:04:00 Test Item Value Reference Range Interpretation Comments PTH Intact (test code = PTH Intact) 55.2 18.4-80.1 [facility]viewZnxomzpTWMNBR3600-92-14 17:25:57 Test Item Value Reference Range Interpretation [...] Matthew Curry MD On 03/19/2023 12:24:50; [id number] [place] [id number] 17:25:57 Test Item Value Reference Range Interpretation [...] Matthew Curry MD On 03/19/2023 12:24:50; [id number] [facility]KaansxpEBZLMY6343-34-05 17:25:57 Test Item Value Reference Range Interpretation [...] Matthew Curry MD On 03/19/2023 12:24:50; [id number] [facility] HospitalYcnwcjyKBSCEA2186-69-33 17:25:57 Test Item Value Reference Range Interpretation [...] Matthew Curry MD On 03/19/2023 12:24:50; VR-CRM__[id number] [facility]jumlupOUKOUN7875-97-98 17:25:57 Test Item Value Reference Range Interpretation [...] Matthew Curry MD On 03/19/2023 12:24:50; VR-CRM__[id number] [facility] [employer] FUCSHZF6004-30-11 15:53:00 Test Item Value Reference Range Interpretation Comments ABO/Rh (test code = ABO/Rh) A NEG [employer] [id number] 15:53:00 Test Item Value Reference Range Interpretation Comments Antibody Scrn (test Positive 8(03/19/23 code = Antibody Scrn) 10:53 AM) [employer] [id number] 15:53:00 Test Item Value Reference Range Interpretation Comments AB Int (test code = AB Int) Anti-D [employer] [id number] 15:53:00 Test Item Value Reference Range Interpretation Comments ABO/Rh (test code = ABO/Rh) A NEG [employer] [id number] 15:53:00 Test Item Value Reference Range Interpretation Comments Antibody Scrn (test Positive 7(03/19/23 code = Antibody Scrn) 10:53 AM) [employer] [id number] 15:53:00 Test Item Value Reference Range Interpretation Comments AB Int (test code = AB Int) Anti-D [employer] [id number] 15:53:00 Test Item Value Reference Range Interpretation Comments ABO/Rh (test code = ABO/Rh) A NEG [facility] [employer] [id number] 15:53:00 Test Item Value Reference Range Interpretation Comments Antibody Scrn (test Positive 8(03/19/23 code = Antibody Scrn) 10:53 AM) [facility] [employer] [id number] 15:53:00 Test Item Value Reference Range Interpretation Comments AB Int (test code = AB Int) Anti-D [employer] [id number] 15:53:00 Test Item Value Reference Range Interpretation Comments ABO/Rh (test code = ABO/Rh) A NEG [facility] [employer] [id number] 15:53:00 Test Item Value Reference Range Interpretation Comments Antibody Scrn (test Positive 7(03/19/23 code = Antibody Scrn) 10:53 AM) [facility] [employer] [id number] 15:53:00 Test Item Value Reference Range Interpretation Comments AB Int (test code = AB Int) Anti-D [employer] [id number] 15:53:00 Test Item Value Reference Range Interpretation Comments ABO/Rh (test code = ABO/Rh) A NEG [facility] [employer] [id number] 15:53:00 Test Item Value Reference Range Interpretation Comments Antibody Scrn (test Positive 8(03/19/23 code = Antibody Scrn) 10:53 AM) [facility] [employer] [id number] 15:53:00 Test Item Value Reference Range Interpretation Comments AB Int (test code = AB Int) Anti-D [facility] [employer] [id number] 15:53:00 Test Item Value Reference Range Interpretation Comments ABO/Rh (test code = ABO/Rh) A NEG [employer] [id number] 15:53:00 Test Item Value Reference Range Interpretation Comments Antibody Scrn (test Positive 7(03/19/23 code = Antibody Scrn) 10:53 AM) [facility] [employer] [id number] 15:53:00 Test Item Value Reference Range Interpretation Comments AB Int (test code = AB Int) Anti-D [employer] [id number] 15:53:00 Test Item Value Reference Range Interpretation Comments ABO/Rh (test code = ABO/Rh) A NEG [facility] [employer] [id number] 15:53:00 Test Item Value Reference Range Interpretation Comments Antibody Scrn (test Positive 8(03/19/23 code = Antibody Scrn) 10:53 AM) [facility] [employer] [id number] 15:53:00 Test Item Value Reference Range Interpretation Comments AB Int (test code = AB Int) Anti-D [employer] [id number] 15:53:00 Test Item Value Reference Range Interpretation Comments ABO/Rh (test code = ABO/Rh) A NEG [employer] [id number] 15:53:00 Test Item Value Reference Range Interpretation Comments Antibody Scrn (test Positive 7(03/19/23 code = Antibody Scrn) 10:53 AM) [facility] [employer] [id number] 15:53:00 Test Item Value Reference Range Interpretation Comments AB Int (test code = AB Int) Anti-D [employer] [id number] 15:53:00 Test Item Value Reference Range Interpretation Comments ABO/Rh (test code = ABO/Rh) A NEG [employer] [id number] 15:53:00 Test Item Value Reference Range Interpretation Comments Antibody Scrn (test Positive 8(03/19/23 code = Antibody Scrn) 10:53 AM) [facility] [employer] [id number] 15:53:00 Test Item Value Reference Range Interpretation Comments AB Int (test code = AB Int) Anti-D [employer] [id number] 15:53:00 Test Item Value Reference Range Interpretation Comments ABO/Rh (test code = ABO/Rh) A NEG [employer] [id number] 15:53:00 Test Item Value Reference Range Interpretation Comments Antibody Scrn (test Positive 7(03/19/23 code = Antibody Scrn) 10:53 AM) [facility] [employer] [id number] 15:53:00 Test Item Value Reference Range Interpretation Comments AB Int (test code = AB Int) Anti-D [employer] LLCRtwgomzLILJRWTBGE2275-12-99 15:52:00 Test Item Value Reference Range Interpretation Comments PT (test code = PT) 12.6 s 12.0-14.7 [facility]pykvwiKAZPZBMWNQ2274-53-83 15:52:00 Test Item Value Reference Range Interpretation Comments PTT (test code = PTT) 31.7 s 22.9-35.8 [facility] CenterOrzkqakPWDVSLEQPU2174-75-68 15:52:00 Test Item Value Reference Range Interpretation Comments INR (test code = INR) 0.94 1 0.87-1.13 [facility] CenterZrcaxioDZCBBAGDWF1829-43-80 15:52:00 Test Item Value Reference Range Interpretation Comments PT (test code = PT) 12.6 s 12.0-14.7 [facility] CenterOklurroBXWHGYIXUT5827-29-44 15:52:00 Test Item Value Reference Range Interpretation Comments PTT (test code = PTT) 31.7 s 22.9-35.8 [facility] CenterSahsjqyCXUQDLXCDX7428-16-48 15:52:00 Test Item Value Reference Range Interpretation Comments INR (test code = INR) 0.94 1 0.87-1.13 [facility] CenterSbuznuyQXJCDQNBZV3935-66-84 15:52:00 Test Item Value Reference Range Interpretation Comments PT (test code = PT) 12.6 s 12.0-14.7 [facility] CenterMullikiLWRSVOSMHU6852-58-90 15:52:00 Test Item Value Reference Range Interpretation Comments PTT (test code = PTT) 31.7 s 22.9-35.8 [facility] CenterKytpoyoIOELEMCQMC1715-25-12 15:52:00 Test Item Value Reference Range Interpretation Comments INR (test code = INR) 0.94 1 0.87-1.13 [facility] CenterMuamounCJPFQLLCCV3044-94-65 15:52:00 Test Item Value Reference Range Interpretation Comments PT (test code = PT) 12.6 s 12.0-14.7 [facility] CenterWrghlnyZCVSYTQXJY5901-73-42 15:52:00 Test Item Value Reference Range Interpretation Comments PTT (test code = PTT) 31.7 s 22.9-35.8 [facility] CenterBkpjereZVEAWIANSH8955-99-76 15:52:00 Test Item Value Reference Range Interpretation Comments INR (test code = INR) 0.94 1 0.87-1.13 [facility] CenterGjctlcdAYQZWBPLGC3990-60-00 15:52:00 Test Item Value Reference Range Interpretation Comments PT (test code = PT) 12.6 s 12.0-14.7 [place] 783853-07-09 15:52:00 Test Item Value Reference Range Interpretation Comments PTT (test code = PTT) 31.7 s 22.9-35.8 [facility] CenterIpqihggAUJMXRMTKH8351-07-90 15:52:00 Test Item Value Reference Range Interpretation Comments INR (test code = INR) 0.94 1 0.87-1.13 [facility] CenterXkpuegbDMPSPUECHU9873-27-32 15:52:00 Test Item Value Reference Range Interpretation Comments PT (test code = PT) 12.6 s 12.0-14.7 [facility] CenterMohxddtWUTFRCGGIG0703-88-68 15:52:00 Test Item Value Reference Range Interpretation Comments PTT (test code = PTT) 31.7 s 22.9-35.8 [facility] CenterSxudyppPTQUMFASMF2629-20-03 15:52:00 Test Item Value Reference Range Interpretation Comments INR (test code = INR) 0.94 1 0.87-1.13 [facility] CenterWzhbifjZEZMRWXHBS3765-45-80 15:52:00 Test Item Value Reference Range Interpretation Comments PT (test code = PT) 12.6 s 12.0-14.7 [facility] CenterNngjlymOSAGVFCCNG3810-54-51 15:52:00 Test Item Value Reference Range Interpretation Comments PTT (test code = PTT) 31.7 s 22.9-35.8 [facility] CenterFqwkmscPXUHYCCWRB3886-06-03 15:52:00 Test Item Value Reference Range Interpretation Comments INR (test code = INR) 0.94 1 0.87-1.13 [facility] CenterKcjxlbqOXOYYWXOOS8829-65-26 15:52:00 Test Item Value Reference Range Interpretation Comments PT (test code = PT) 12.6 s 12.0-14.7 [facility] CenterMiyppwkIGISRXOLBG0448-31-12 15:52:00 Test Item Value Reference Range Interpretation Comments PTT (test code = PTT) 31.7 s 22.9-35.8 [place] [address]-07-09 15:52:00 Test Item Value Reference Range Interpretation Comments INR (test code = INR) 0.94 1 0.87-1.13 [place] [address]-07-09 15:52:00 Test Item Value Reference Range Interpretation Comments PT (test code = PT) 12.6 s 12.0-14.7 [place] [address]-07-09 15:52:00 Test Item Value Reference Range Interpretation Comments PTT (test code = PTT) 31.7 s 22.9-35.8 [facility] CenterEoftozcUEPPOHJEWV4207-19-03 15:52:00 Test Item Value Reference Range Interpretation Comments INR (test code = INR) 0.94 1 0.87-1.13 [facility] CenterJgvctopTMDBULGNQR9007-47-57 15:52:00 Test Item Value Reference Range Interpretation Comments PT (test code = PT) 12.6 s 12.0-14.7 [facility] CenterNuajoxsVQKGVHMIUM9372-11-95 15:52:00 Test Item Value Reference Range Interpretation Comments PTT (test code = PTT) 31.7 s 22.9-35.8 [facility] CenterTdojcstIKDTPFLEKT9169-82-28 15:52:00 Test Item Value Reference Range Interpretation Comments INR (test code = INR) 0.94 1 0.87-1.13 [place] 87411023-07-09 15:47:07 Test Item Value Reference Range Interpretation [...] Nahum Butler MD On 03/19/2023 10:45:46; VR-GHR__092219 [place] 87411023-07-09 15:47:07 Test Item Value Reference Range Interpretation [...] Nahum Butler MD On 03/19/2023 10:45:46; VR[facility]GHR__092219 [facility]TdwhdlnMZEQCT1712-24-74 15:47:07 Test Item Value Reference Range Interpretation [...] Nahum Butler MD On 03/19/2023 10:45:46; VR[facility]GHR__092219 [facility] HospitalSdqidoxHOYUVD0476-40-39 15:47:07 Test Item Value Reference Range Interpretation [...] Nahum Butler MD On 03/19/2023 10:45:46; VR[facility]GHR__092219 [facility] HospitalRyhczyaFIUWLN2941-71-62 15:47:07 Test Item Value Reference Range Interpretation [...] Nahum Butler MD On 03/19/2023 10:45:46; VR-GHR__092219 [facility]SpmnjgoEEQJBE1888-18-29 15:44:40 Test Item Value Reference Range Interpretation [...] Nahum Butler MD On 03/19/2023 10:44:04; VR-GHR__092219 [facility] CenterQuilffcQCEVJV0265-90-06 15:44:40 Test Item Value Reference Range Interpretation [...] Nahum Butler MD On 03/19/2023 10:44:04; VR-GHR__092219 [facility] CenterYnzemnwRMBQAO7664-59-38 15:44:40 Test Item Value Reference Range Interpretation [...] Nahum Butler MD On 03/19/2023 10:44:04; VR[facility]GHR__092219 [facility] HospitalJslhqzgODFLNK6867-38-14 15:44:40 Test Item Value Reference Range Interpretation [...] Nahum Butler MD On 03/19/2023 10:44:04; VR[facility]GHR__092219 [facility] HospitalXcbuujsZMKTKD5786-32-22 15:44:40 Test Item Value Reference Range Interpretation [...] Nahum Butler MD On 03/19/2023 10:44:04; VR-GHR__092219 [facility] CenterUbpbqiyXPPGUN8966-69-90 15:42:07 Test Item Value Reference Range Interpretation [...] left femur.Omer Almeida MD On 03/19/2023 10:40:51; VR[facility]ZKNII104904 [facility] HospitalZpmegwgJMIXID8607-01-02 15:42:07 Test Item Value Reference Range Interpretation [...] left femur.Omer Almeida MD On 03/19/2023 10:40:51; VR-[id number] [facility] CenterXjhzpsnJEGZMX5507-20-10 15:42:07 Test Item Value Reference Range Interpretation [...] left femur.Omer Almeida MD On 03/19/2023 10:40:51; VR[facility]JKXJT742008 [facility] HospitalNgzjmizNATFPW6484-72-51 15:42:07 Test Item Value Reference Range Interpretation [...] left femur.Omer Almeida MD On 03/19/2023 10:40:51; VR-[id number] [facility] CenterAajhcrtANWIVQ2657-69-30 15:42:07 Test Item Value Reference Range Interpretation [...] left femur.Omer Almeida MD On 03/19/2023 10:40:51; CURTISFHMEA036020 [facility] CenterIowhpevGKGCGJ7987-35-48 15:35:52 Test Item Value Reference Range Interpretation [...] left femur.Omer Almeida MD On 03/19/2023 10:34:32; VR-[id number] [facility] CenterZllkerfRAMBWS2738-20-73 15:35:52 Test Item Value Reference Range Interpretation [...] left femur.Omer Almeida MD On 03/19/2023 10:34:32; VR[facility]BEZBE680526 [facility] HospitalAgezlzaBWAXWZ4283-32-61 15:35:52 Test Item Value Reference Range Interpretation [...] left femur.Omer Almeida MD On 03/19/2023 10:34:32; VR[facility]PYSBA376727 [facility] HospitalXxmyslhBUSHEH2953-71-71 15:35:52 Test Item Value Reference Range Interpretation [...] left femur.Omer Almeida MD On 03/19/2023 10:34:32; VR[facility]RPCFA428777 [facility] HospitalDradtaoKBXCTJ4385-12-24 15:35:52 Test Item Value Reference Range Interpretation [...] left femur.Omer Almeida MD On 03/19/2023 10:34:32; VR-[id number] [place] 222623-07-09 13:35:00 Test Item Value Reference Range Interpretation Comments Gluc POC Comment 1 (test code Notified RN/MD = Gluc POC Comment 1) [place] 222623-07-09 13:35:00 Test Item Value Reference Range Interpretation Comments Gluc POC Comment 2 (test code = Cleaned Meter Gluc POC Comment 2) [place] 222623-07-09 13:35:00 Test Item Value Reference Range Interpretation Comments Gluc POC Comment 1 (test code Notified RN/MD = Gluc POC Comment 1) [place] 222623-07-09 13:35:00 Test Item Value Reference Range Interpretation Comments Gluc POC Comment 2 (test code = Cleaned Meter Gluc POC Comment 2) [place] 222623-07-09 13:35:00 Test Item Value Reference Range Interpretation Comments Gluc POC Comment 1 (test code Notified RN/MD = Gluc POC Comment 1) [place] [address]-07-09 13:35:00 Test Item Value Reference Range Interpretation Comments Gluc POC Comment 2 (test code = Cleaned Meter Gluc POC Comment 2) [place] [address]-07-09 13:35:00 Test Item Value Reference Range Interpretation Comments Gluc POC Comment 1 (test code Notified RN/MD = Gluc POC Comment 1) [place] [address]-07-09 13:35:00 Test Item Value Reference Range Interpretation Comments Gluc POC Comment 2 (test code = Cleaned Meter Gluc POC Comment 2) [place] [address]-07-09 13:35:00 Test Item Value Reference Range Interpretation Comments Gluc POC Comment 1 (test code Notified RN/MD = Gluc POC Comment 1) [facility]2023-07-09 13:35:00 Test Item Value Reference Range Interpretation Comments Gluc POC Comment 2 (test code = Cleaned Meter Gluc POC Comment 2) [facility] W/PLT COUNT & AUTO WJFIPIIMWCCA0359-21-26 05:48:00 Test Item Value Reference Range Interpretation [...] (BEAKER) (test code = 2801) BASIC METABOLIC [id number] 05:45:00 Test Item Value Reference Range Interpretation [...] S NOT APPLICABLE FOR DIALYSIS PATIEN TS. [employer] Truck Driver ID - WERNER DWVPMIYUW0829-94-39 10:10:00 Test Item Value Reference Range Interpretation Comments FERRITIN (BEAKER) (test code = 55.09 ng/mL 5.00-275.00 361) [employer] ID - KAREN WislonVITAMIN B12 AND CLWRCB8328-27-69 10:10:00 Test Item Value Reference Range Interpretation Comments VITAMIN B12 671 pg/mL 213-816 (BEAKER) (test code = 774) FOLATE (BEAKER) 10.50 ng/mL See_Comment [Automated message] (test code = 362) The system which generated this result transmitted ref erence range: >=7.00. The reference range was not used to interpr et this result as normal/abnormal . [employer] ID - KAREN MARTINEZ, TIBC, % SAT. (WITHOUT FERRITIN)2021-04-08 09:39:00 Test Item Value Reference Range Interpretation Comments IRON (BEAKER) (test code = 547) 11.0 ug/dL 40.0-160.0 L TOTAL IRON BINDING CAPACITY 309 ug/dL 250-450 (BEAKER) (test code = 769) IRON % SATURATION (2) (BEAKER) 4 % 20-55 L (test code = 2590) [employer] ID - KAREN WCBC W/PLT COUNT & AUTO PBKWEBKCYCNZ5900-62-09 07:58:00 Test Item Value Reference Range Interpretation [...] (BEAKER) (test code = 2801) BASIC METABOLIC [id number] 05:49:00 Test Item Value Reference Range Interpretation [...] S NOT APPLICABLE FOR DIALYSIS PATIEN TS. [employer] ID - BSCBC W/PLT COUNT & AUTO ZZLOHWABAUWC7503-64-87 05:21:00 Test Item Value Reference Range Interpretation [...] 2801) FL, FLUORO, NON-SPECIFIC, UP TO 1 [id number] 12:45:00Reason for exam:- >ORIF Tibial Plateau Right [facility] : 1950 Sex: FFluoroscopic unit utilized for a procedure performed in the OR. No interpretation was requested. Refer to the operative report for findings. Refer to PACS for patient radiation dose information.BASIC METABOLIC [id number] 09:58:00 Test Item Value Reference Range Interpretation [...] S NOT APPLICABLE FOR DIALYSIS PATIEN TS. [employer] Driver ID - CANDIS HLYIMVOIUSU0172-08-03 09:45:00 Test Item Value Reference Range Interpretation Comments HEMOGLOBIN (BEAKER) (test code = 6.1 GM/DL 11.2-15.7 L 410) [employer] Driver ID - 6000SARS-COV2/RT-PCR ([facility])2021-04-07 09:25:00 Test Item Value Reference Range Interpretation Comments SARS-COV2/RT-PCR Negative Negative The SARS-Co V-2 target (test code = 6816006) nuclei c acids are not detected in [...] Xpress SARS-CoV-2/Flu/RSV by their healthcareprovider. [facility] Xpert Xpress SARS-CoV-2/Flu/RSV test should be [...] of the Act.Fact Sheet for Healthcare Providers:https ://www.[employer]/Documents/Xpert%20Xpress%20SARS%20CoV-2/Fact%20Sheets/302-390 2%64RIEG-EFA-5%20HEALTHCARE%20PROVIDERS%20FACT%20SHEET.pdfFact Sheet for Healthcare Patients:https://www.[employer]/Docum ents/Xpert%20Xpress%20SARS%20Cov-2/Fact%20Sheets/302-0009%28UTST-HOT-5%20PATIENT %20FACT%20SHEET.pdf History and Physical Notes Date/Time Note Provider Source 2023-04-12 01:40:00 9433-05-25F06:40:00Geno Merritt [facility] Tristan Maier MD: PERFORM, MODIFYEvent Display: History and PhysicalAuthored Date: [id number] and Physical Primary Team Name:Team Contact Info:PCP [...] femur. Omer Almeida MD On 03/19/2023 10:40:51; VR-[id number] Hip 2/3 views uni w pelvis DX03/19/2023 10:35 Impression:Acute comminuted intertrochanteric fracture of the proximal left femur. Omer Almeida MD On 03/19/2023 10:34:32; VR-[id number] Assessment/Plan: 1. Fall, accidental (W19.XXXA) monitor 2. Closed displaced intertrochanteric fracture of left femur (S72.142A) Ortho consulted, prn pain meds, will get nerve block by ansesthesia, monitor Ordered: Admit/Condition, 03/19/23 10:58:00 CDT, Status: Inpatient, Acute, Expected LOS: 2 Midnights, Geno Merritt MD, it Review/Approve Yes, Closed displaced intertrochanteric fracture of left femur | HTN (hypertension) 3. HTN (hypertension) (I10) give prn IV meds. Ordered: Admit/Condition, 03/19/23 10:58:00 CDT, Status: Inpatient, Acute, Expected LOS: 2 Midnights, Geno Merritt MD, Admit Review/Approve Yes, Closed displaced intertrochanteric fracture of left femur | HTN (hypertension) 4. Schizophrenia (F20.9) Resume home medication 5. Moderate malnutrition (E44.0) Dietary consult is placed Prophylaxis Famotidine, DVT prophylaxis per Ortho Disposition Admit inpatient, monitor closely.Geno Merritt MDElectronically Signed: 03/19/23 17:8149349-6Tugjkci and physicalLNHistory and physicalTXTAVAvailable for patient zxle33253-6Pzvzxpk and physicalLNMHFlower HospitalNhppkeal3363-86-64Y83:47:23 2023-04-12 01:40:00 5820-51-93K57:40:00Geno Merritt [facility] Tristan Maier MD: PERFORMEvent Display: History and PhysicalAuthored Date: [id number] STATUS: Full codeDiscussed with the patient, RN, her son on phone, answered all questions.Geno Merritt MDElectronically Signed: 03/19/23 17:7224188-6Tjxfxet and physicalLNHistory and physicalTXTAVAvailable for patient dxcj68838-5Cbjqabw and physicalLNNoland Hospital BirminghamNcznambt7318-21-58U70:47:23 2023-04-12 01:40:00 6917-43-69U40:40:00Geno Merritt [facility] Tristan Maier MD: PERFORM, MODIFYEvent Display: History and PhysicalAuthored Date: [id number] and Physical Primary Team Name:Team Contact Info:PCP [...] femur. Omer Almeida MD On 03/19/2023 10:40:51; VR-[id number] Hip 2/3 views uni w pelvis DX03/19/2023 10:35 Impression:Acute comminuted intertrochanteric fracture of the proximal left femur. Omer Almeida MD On 03/19/2023 10:34:32; VR-[id number] Assessment/Plan: 1. Fall, accidental (W19.XXXA) monitor 2. Closed displaced intertrochanteric fracture of left femur (S72.142A) Ortho consulted, prn pain meds, will get nerve block by ansesthesia, monitor Ordered: Admit/Condition, 03/19/23 10:58:00 CDT, Status: Inpatient, Acute, Expected LOS: 2 Midnights, Geno Merritt MD, Admit MD Review/Approve Yes, Closed displaced intertrochanteric fracture of left femur | HTN (hypertension) 3. HTN (hypertension) (I10) give prn IV meds. Ordered: Admit/Condition, 03/19/23 10:58:00 CDT, Status: Inpatient, Acute, Expected LOS: 2 Midnights, Geno Merritt MD, Admit MD Review/Approve Yes, Closed displaced intertrochanteric fracture of left femur | HTN (hypertension) 4. Schizophrenia (F20.9) Resume home medication 5. Moderate malnutrition (E44.0) Dietary consult is placed Prophylaxis Famotidine, DVT prophylaxis per Ortho Disposition Admit inpatient, monitor closely.Geno Merritt MDElectronically Signed: 03/19/23 17:8379953-4Gnhwxrr and physicalLNHistory and physicalTXTAVAvailable for patient pspe77302-8Olotmad and physicalLNNoland Hospital BirminghamTgtjslvs1259-87-66O68:47:23 2023-04-12 01:40:00 1441-62-44H60:40:00Geno Merritt [facility] Tristan Maier MD: PERFORMEvent Display: History and PhysicalAuthored Date: [id number] STATUS: Full codeDiscussed with the patient, RN, her son on phone, answered all questions.Geno Merritt MDElectronically Signed: 03/19/23 17:9461666-7Mouttpd and physicalLNHistory and physicalTXTAVAvailable for patient eyhi56259-9Owgosgl and physicalLNNoland Hospital BirminghamPhbntcns2310-50-38T69:47:23 Notes Date/Time Note Provider Source 2023-03-19 7440-70-44D90:48:00PROCEDURE [facility] 10:48:00 INFORMATION: Exam: XR Chest Exam date Hospital and time: 03/19/2023 10:58 AM Age: 73 [...] consolidation. Matthew Curry MD On 03/19/2023 12:24:50; II-RQQ__[id number] ReportsLNDiagnostic ReportsTXTAVAvailable for patient elfv37792-8Pvahkautnz ReportsLaura Ville 691293-07-09T12:29:00 2023-03-19 9065-34-48O04:48:00PROCEDURE [facility] 10:48:00 INFORMATION: Exam: XR Chest Exam date Hospital and time: 03/19/2023 10:58 AM Age: 73 [...] consolidation. Matthew Curry MD On 03/19/2023 12:24:50; GY-ALB__[id number] ReportsLNDiagnostic ReportsTXTAVAvailable for patient uzfy62663-0Muqmddkjud ReportsACMC Healthcare System2023-07-09T12:29:00 2023-03-19 4941-64-29X59:51:00PROCEDURE [facility] 09:51:00 INFORMATION: Exam: XR Left Hip Exam Hospital date and time: 03/19/2023 9:32 AM Age: [...] left femur.Omer Almeida MD On 03/19/2023 10:34:32; AV-[id number] ReportsLNDiagnostic ReportsTXTAVAvailable for patient gehj93417-5Avxhcbtwjb ReportsSamantha Ville [address]-07-09T10:39:00 2023-03-19 4806-60-29E21:51:00PROCEDURE [facility] 09:51:00 INFORMATION: Exam: XR Left Ankle Exam Hospital date and time: 03/19/2023 9:46 AM Age: [...] abnormality. Nahum Butler MD On 03/19/2023 10:45:46; BY-LZS__[id number] ReportsLNDiagnostic ReportsTXTAVAvailable for patient avqa55078-9Cvqreuhrtd ReportsLaura Ville 691293-07-09T10:50:00 2023-03-19 9369-39-27A77:51:00PROCEDURE [facility] 09:51:00 INFORMATION: Exam: XR Left Femur Exam Hospital date and time: 03/19/2023 9:42 AM Age: [...] left femur.Omer Almeida MD On 03/19/2023 10:40:51; BB-[id number] ReportsLNDiagnostic ReportsTXTAVAvailable for patient wuzv81739-5Cjbiddjfku ReportsLaura Ville 691293-07-09T10:45:00 2023-03-19 0340-02-39J49:51:00PROCEDURE [facility] 09:51:00 INFORMATION: Exam: XR Left Foot Exam Hospital date and time: 03/19/2023 9:49 AM Age: [...] abnormality. Nahum Butler MD On 03/19/2023 10:44:04; ZV-ORJ__[id number] ReportsLNDiagnostic ReportsTXTAVAvailable for patient vcyt45515-4Jvfqxxtplx ReportsACMC Healthcare System2023-07-09T10:48:00 2023-03-19 6584-36-18T39:51:00PROCEDURE [facility] 09:51:00 INFORMATION: Exam: XR Left Hip Exam Hospital date and time: 03/19/2023 9:32 AM Age: [...] left femur.Omer Almeida MD On 03/19/2023 10:34:32; HV-[id number] ReportsLNDiagnostic ReportsTXTAVAvailable for patient dihq69094-0Muhxqdbuvj ReportsL[place] 691293-07-09T10:39:00 2023-03-19 1304-35-36C96:51:00PROCEDURE [facility] 09:51:00 INFORMATION: Exam: XR Left Ankle Exam Hospital date and time: 03/19/2023 9:46 AM Age: [...] abnormality. Nahum Butler MD On 03/19/2023 10:45:46; DW-SBU__[id number] ReportsLNDiagnostic ReportsTXTAVAvailable for patient cbzy23716-0Lbuifefpkn ReportsACMC Healthcare System2023-07-09T10:50:00 2023-03-19 3906-85-37R73:51:00PROCEDURE [facility] 09:51:00 INFORMATION: Exam: XR Left Femur Exam Hospital date and time: 03/19/2023 9:42 AM Age: [...] left femur.Omer Almeida MD On 03/19/2023 10:40:51; HU-[id number] ReportsLNDiagnostic ReportsTXTAVAvailable for patient bfim53420-8Offupufffw ReportsL[place] 691293-07-09T10:45:00 2023-03-19 8660-31-33Q15:51:00PROCEDURE [facility] 09:51:00 INFORMATION: Exam: XR Left Foot Exam Hospital date and time: 03/19/2023 9:49 AM Age: [...] abnormality. Nahum Butler MD On 03/19/2023 10:44:04; WX-BVV__[id number] ReportsLNDiagnostic ReportsTXTAVAvailable for patient tdch61768-6Fqbwlocspv ReportsLNNoland Hospital BirminghamCphpntgr2043-61-36A09:48:00 2023-02-22 1995-82-96K74:40:51Formatting of this [facility] 14:40:51 note might be different from the [facility] original.OPC#[id number] signed by Matt Parry at 02/22/2023 2:41 PM HNI39444-2Qvrhzvmac department HxbnYA9459-36-97X08:41:01Emergency department NoteTXT1.2.840.956933.1.13.43.2.7.2.727 879|[id number] for patient [id number] Gustavo [facility]2525 [facility] Hospit[id number] 11-14-13T14:41:011.2.840.110798.1.72.3.1 5|1.2.840.876456.1.13.43.2.7.2.727879_2 [id number] 2023-02-22 4788-21-63J86:37:00Formatting of this Sridevi pina [facility] 14:37:00 note might be different from the Olivia System original.Assumed care of client, in room asleep, monitoring ongoing. 26511-4Ojudbowua department SfczEA3857-84-29Y44:37:21[facility] NoteTXT1.2.840.052510.1.13.43.2.7.2.727 879|[id number] for patient [id number] Baker RNFirelands Regional Medical Center South Campus2525 [facility] Hospit[id number] 11-14-13T14:37:211.2.840.680684.1.72.3.1 5|1.2.840.886639.1.13.43.2.7.2.727879_2 [id number] 2023-02-22 8612-59-26U59:10:13Formatting of this [facility] 13:10:13 note might be different from the System original.Patient sitting in room awake. Patient remains safe on unit, respirations present and unlabored. No acute s/s of distress noted at this time. 73104-6Jxvhfrgmt department AtxaGK1055-99-37W88:10:30[facility] department NoteTXT1.2.840.194016.1.13.43.2.7.2.727 879|[id number] for patient careFirelands Regional Medical Center South Campus[address] [place], [place] [id number] 11-14-133:10:301.2.840.871965.1.72.3.1 5|1.2.840.898047.1.13.43.2.7.2.727879_2 [id number] 2023-02-22 3326-00-95V40:12:00Formatting of this [facility] 11:12:00 note might be different from the System original.UNIT ADMIT: Received patient from triage/YOKO 2 area. Pt presented to with CC of paranoia and bizarre behavior on initial assessment. Pt A&Ox4, able to identify self by name and . Speech clear, airway intact, respirations even and unlabored. Facial symmetry with no signs of neuro deficits, skin warm dry, intact and color appropriate to ethnicity. Pt denies pain, n/v, diarrhea, fever/chills, numbness to extremities. 95130-9Xdpulgufz department FdjfUJ2121-40-78F21:22:17Emergen department NoteTXT1.2.840.647412.1.13.43.2.7.2.727 879|[id number] for patient [id number] 11-14-13T11:22:171.2.840.109278.1.72.3.1 5|1.2.840.745922.1.13.43.2.7.2.727879_2 [id number] 2023-02-22 5053-84-22P53:00:00Formatting of this Gavin Jan off [facility] 08:00:00 note is different from the original. [employer] System 02/22/23 0800 Crisis Intervention Contact Initiated Rounds Subjective Pt. is resting in a chair with a sitter at the door Plan SUEN Gavin Miranda [id number] Note1.2.840.575967.1.13.43.2.7.4.807920 .02973591-26-15Y89:35:12Flowsheet NoteTXT1.2.840.136117.1.13.43.2.7.2.727 879|[id number] for patient [id number] Janoff [id number] 11-14-13T10:35:121.2.840.942036.1.72.3.1 5|1.2.840.045220.1.13.43.2.7.2.727879_2 [id number] 2023-02-22 9483-95-80U65:52:15Formatting of this [facility] 07:52:15 note might be different from the System original.SW emailed Daytime WOT to [facility] for transfer of pt to [facility] via [employer] at 0751hrs. Matt Parry LMSW #[id number] signed by Matt Parry at 02/22/2023 7:52 AM ZUR51986-8Ieoqqznfh department HionZO2147-31-29X88:52:38Emergency department NoteTXT1.2.840.724711.1.13.43.2.7.2.727 879|[id number] for patient [facility] [place], [place] [address][id number] 11-14-13T07:52:381.2.840.797827.1.72.3.1 5|1.2.840.271866.1.13.43.2.7.2.727879_2 [id number] 2023-02-22 1528-34-91S46:32:53Formatting of this Psychiatry [facility] 06:32:53 note might be different from the System original.Pt can be moved over to pod E pending cosign on medclear note and pending pt changing into green scrubs.Janis Watson MD, PGY-2 [id number] Psych Notes1.2.840.973101.1.13.43.2.7.4.99941 0.13121190-00-52M14:33:19EC Psych NotesTXT1.2.840.005103.1.13.43.2.7.2.72 7879|[id number] for patient carePsychiatryPsychiatry[address] Johns StreetTXTX7705477054USUS202 11-14-13T06:33:191.2.840.004781.1.72.3.1 5|1.2.840.623120.1.13.43.2.7.2.727879_2 [id number] 2023-02-22 2189-54-43X94:23:17Formatting of this [facility] 06:23:17 note might be different from the System original.D2D completed with [place]. Pt accepted.Janis Watson MD, PGY-2 [id number] Psych Notes1.2.840.134178.1.13.43.2.7.4.81305 0.14462687-89-57B62:23:49EC Psych NotesTXT1.2.840.669003.1.13.43.2.7.2.72 7879|[id number] for patient [address]TXTX[address]05477054USUS202 11-14-13T06:23:491.2.840.505169.1.72.3.1 5|1.2.840.132194.1.13.43.2.7.2.727879_2 [id number] 2023-02-22 4460-96-27F73:18:21Formatting of this Peg Vilchis [facility] 06:18:21 note might be different from the System original.Pt agreed to remove jewelry, but still refused to remove the inner wear. 57405-2Eyqdtflnj department HyqcSS3756-48-84V07:20:17Emergency department NoteTXT1.2.840.846760.1.13.43.2.7.2.727 879|[id number] for patient [id number] A [facility]2525 [facility] HospitalLuzyDcupxygXchminpDUZI3885001375VAVP140 11-14-13T06:20:171.2.840.265122.1.72.3.1 5|1.2.840.668393.1.13.43.2.7.2.727879_2 [id number] 2023-02-22 5646-83-75X06:16:48Formatting of this [facility] 06:16:48 note might be different from the System original.Report given to Glenn TAYLOR from [place] [address]24[address]-7Jgwajxepm department JdneYQ5487-47-77S03:17:14[facility] NoteTXT1.2.840.391406.1.13.43.2.7.2.727 879|[id number] for patient [id number] [facility] [place], [place] [address]K[id number] 11-14-13T06:17:141.2.840.594689.1.72.3.1 5|1.2.840.912216.1.13.43.2.7.2.727879_2 [id number] 2023-02-22 0684-77-78Y28:19:27Formatting of this [facility]endra [facility] 05:19:27 note might be different from the System original.Went to relocate patient to POD E as ordered. Patient refused to remove her jeweries and inner dressings. After prolonged attempts to encourage patient, there was no success. (DR. RODRIGUEZ) notified. 04591-9Okwereott department NubrHY9343-48-23I93:22:06Emerb[facility] center department NoteTXT1.2.840.830234.1.13.43.2.7.2.727 879|[id number] for patient [id number] Weskota [facility] Center2525 [facility] Hospital[id number] 11-14-1305:22:061.2.840.161108.1.72.3.1 5|1.2.840.843223.1.13.43.2.7.2.727879_2 [id number] 2023-02-22 5778-44-75U99:45:33Formatting of this Nurse [facility] 04:45:33 note is different from the Sweta amaro original.MEDICAL STABILITY FOR PSYCHIATRIC DISPOSITION NOTEPatients eligible for transfer to the Psychiatric EC:1) Have the capacity to consent and have agreed to voluntary transfer or2) Have a valid signed police packet or3) Have a court approved Emergency Half-Way Order.Excluded patients from transfer to the Psychiatric EC are: Less than 18 years of age, under guardianship without an NADIR, have Delirium or Profound MR, are demented or are in police custody or are unable to perform ADLsPlease indicate if any of the medical conditions are present (Explain any Yes answers):Mental Retardation (Intellectual Disability Disorder) or Autism preventing independent living No Dementia (Neurocognitive Disorder) or other severe cognitive impairment No Altered Mental Status/Delirium No Overdose that has not been medically evaluated, treated and stabilized No Intoxicated patients or those under the influence of alcohol or illicit substances that have not been medically evaluated, treated and stabilized No ETOH or benzodiazepine withdrawal which may include: tremors, sweating, heart rate > 100, BP > 150/100 Hg No Blood sugar over 400 mg/dl or blood sugar less than 50 mg/dl No Hypertensive Emergency No Hypertensive Urgency (BP >180/110); with elevated blood pressure in the last 4 hours No Symptomatic cardiovascular or respiratory problem (ex: chest pain, shortness of breath) that has not been medically evaluated, treated, and stabilized No Abnormal labs and/or vital signs (ex: Na < 130, K < 3.2, WBC > 15,000, CPK > 1500, or CPK > 1000 with elevated Temperature and muscular rigidity, HR< 50 or > 110) No Temperature of 101 F or higher No Unable to move or toilet independently (Wheelchair typically only excluded when safety issues are a concern; Cane or Crutch evaluated on an individual basis for safety; Blindness typically admitted when safety can t be ensured) No Currently on Methadone or Suboxone therapy No Please indicate if the patient requires any of the following interventions (Explain any Yes answers):Isolation (ex: active pulmonary TB, MRSA) No Continuous oxygen or O2 saturation on room air less than 91% with dyspnea and/or tachypnea No Wound or dressing changes, other than for superficial wounds/lesions (ex: kerlix, packing, or wet to dry dressings) No Tracheostomy maintenance and care (self-care patients are acceptable) No Indwelling tubing (ex: urinary catheter, feeding tube, etc ) No IV therapy (ex: heparin lock, peripheral, or central line access) No Suctioning No Medical equipment or assistive device requiring electricity No Medical conditions requiring frequent laboratory monitoring (does not include finger stick blood glucose) No Disposition/placement in extermination inspector care facility for non-psychiatric reasons No greater than 36 weeks gestation No DWAINE requiring CPAP No I evaluated the patient Sharmaine Amaya and conducted a Medical Screening Examination.Current clinical impressions include:1. Unspecified psychosis not due to a substance or known physiological condition New medical / surgical condition(s) diagnosed during this visit include: neck pain.Specific (non psychiatric) medications instructions include: begin: acetaminophen 650 mg every 6 hours PRN.The patient should follow up medically with: Primary Care Provider Primary Care Provider 1-2 week(s) semana(s)Other recommendations: none. The patient reports that her reported fall was in May 2022. Her pain is to her bilateral neck and has been present for 5 days. She declines a CT of her C spine. Low c/f C-spine fracture or spinal cord injury. Pt able to ambulate and move her neck, but is refusing a tactile exam by me. The patient is medically stable at this time for psychiatric disposition.Jaja Balderas 2022 4:45 AM 323776EalOfo for Psych1.2.840.765020.1.13.43.2.7.4.09812 [id number], Reginald P1.2.840.779720.1.13.43.2.7.2.779123Myw zrtJyxoopitQRW2629-55-83Z00:40:39MedClr for PsychTXT1.2.840.964510.1.13.43.2.7.2.72 7879|[id number] for patient careNurse PractitionerNurse PractitionerFirelands Regional Medical Center South Campus[address] [place], [place] [address]Vp[id number] 11-14-13T04:48:011.2.840.090602.1.72.3.1 5|1.2.840.564376.1.13.43.2.7.2.727879_2 [id number] 2023-02-22 7969-22-96Z66:45:14Formatting of this Psychiatry [facility] 04:45:14 note might be different from the System original.Received doc to doc call from JONATHAN Schneider who reported that pt's UA had returned and was not remarkable and that she has continued to refuse the CT of her C-spine. EC team reporting that pt with no neurologic findings, is ambulating without difficulty, refusing CT due to concerns about exposure to radiation, though per nursing notes pt refused it because she did not want to take off her jewelry for the exam. EC team will medically clear pt and cancel the CT of her neck. Relocate order placed for transfer to Pod E and EC psychiatry will become primary once [place], [address] [id number] Psych Notes1.2.840.966430.1.13.43.2.7.4.12023 0.93537001-94-81M84:49:04EC Psych NotesTXT1.2.840.285627.1.13.43.2.7.2.72 7879|[id number] for patient carePsychiatryPsychiatryFirelands Regional Medical Center South Campus2525 Lali Mares[id number] 11-14-13T04:49:041.2.840.045719.1.72.3.1 5|1.2.840.645748.1.13.43.2.7.2.727879_2 [id number] 2023-02-21 4347-08-38O71:03:57Formatting of this Emergency Medicine [facility] 23:03:57 note is different from the original.I System have assumed care of this patient from Dr. Ji with full report. Please refer to the original provider note for full H&P.Per report:73y.o. female with PMH as below, presenting with audito hallucinations- Reporting neck pain due rough ride with policeNo past medical history on file.Temp: [97.8 F (36.6 C)-98.8 F (37.1 C)] 98.1 F (36.7 C)Pulse: [66-136] 102Resp: [17-18] 18BP: (123-184)/(61-95) 184/95Imaging & Labs 1. Indeterminate punctate cortical hyperdensity along the anteriorright cingulate gyrus could be dystrophic calcification or cavernousmalformation. There is no significant mass effect.2. Otherwise, no acute intracranial abnormalities. Chronic findings:1. Mild supratentorial chronic microvascular ischemic change with oldbilateral striatocapsular lacunar infarcts.2. Generalized cerebral volume loss.3. Old subtle small cortical infarcts along the left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
--- NOTE | 2023-08-09 08:12 | ER ---
Nurse's Notes [facility] Name: Sharmaine Amaya Age: 73 yrs Sex: Female : 1950 Arrival Date: 08/09/2023 Time: 07:53 Bed IW1 Private MD: Diagnosis: Diarrhea, unspecified-resolved Presentation: 08/09 07:58 Chief complaint: Patient states: Severe diarrhea 2 night ago. Ebola Screen: Patient ll1 denies travel to an Ebola-affected area in the 21 days before illness onset. Initial Sepsis Screen: Does the patient meet any 2 criteria? No. Patient's initial sepsis screen is negative. Does the patient have a suspected source of infection? Yes: Acute abdominal pain. Risk Assessment: Do you want to hurt yourself or someone else? Patient reports no desire to harm self or others. Onset of symptoms was August 07, 2023. 07:58 Method Of Arrival: Ambulatory [facility] 07:58 Acuity: YOKO 3 ll1 08:05 Coronavirus screen: Vaccine status: Patient reports receiving the 2nd dose of the covid ll1 vaccine. Client denies travel out of the [place] in the last 14 days. At this time, the client does not indicate any symptoms associated with coronavirus-19. Triage Assessment: 08:01 General: Appears in no apparent distress. Behavior is calm, cooperative, appropriate ll1 for age. Pain: Denies pain. Neuro: No deficits noted. Cardiovascular: No deficits noted. GI: Reports diarrhea, 2 nights ago. Historical: - Allergies: 08:00 BACITRACIN; ll1 08:00 benzalkonium chloride; ll1 08:00 Demerol; ll1 08:00 Gramicidin D; ll1 08:00 Iodinated Contrast Media - IV Dye; ll1 08:00 Morphine; ll1 08:00 Neomycin Sulfate; ll1 08:00 Polymyxin B Sulfate; ll1 08:00 triclosan; ll1 - PMHx: 08:00 Hallucinations; Hypothyroidism; ll1 - PSHx: 08:00 Leg SX bianka placement; ll1 - Immunization history:: Adult Immunizations up to date. - Social history:: Smoking status: Patient denies any tobacco usage or history of. Screenin:09 [facility] ED Fall Risk Assessment (Adult) Score/Fall Risk Level 0 - 2 = Low Risk ll1 Oriented to surroundings, Maintained a safe environment, Educated pt \T\ family on fall prevention, incl call for assistance when getting out of bed, Hourly rounding (assess needs \T\ fall precautionary measures) done. Abuse screen: Denies threats or abuse. Nutritional screening: No deficits noted. Tuberculosis screening: No symptoms or risk factors identified. Assessment: 08:46 Reassessment: No changes from previously documented assessment. Patient and/or family ll1 updated on plan of care and expected duration. Pain level reassessed. Patient is alert, oriented x 3, equal unlabored respirations, skin warm/dry/pink. Vital Signs: 08:05 BP 184 / 94; Pulse 70; Resp 17; Temp 98.2; Pulse Ox 96% on R/A; Weight 47.17 kg; Height ll1 5 ft. 6 in. ; Pain 0/10; 08:05 Body Mass Index 16.79 (47.17 kg, 167.64 cm) ll1 08:05 Pain Scale: Adult ll1 ED Course: 07:56 Patient arrived in ED. mg5 07:56 Claudia Gao FNP-C is [facility]. milind 07:56 Ralph Shook DO is Attending Physician. kb 07:59 Triage completed. ll1 08:01 Arm band placed on. ll1 08:09 No provider procedures requiring assistance completed. Patient did not have IV access ll1 during this emergency room visit. 08:10 Patient has correct armband on for positive identification. Bed in low position. ll1 08:46 Provided Education on: n/a. ll1 Administered Medications: 08:45 Drug: Ondansetron Oral Disintegrating Tablet Oral Disintegrating Tablet 4 mg PO once ll1 Route: PO; 08:49 Follow up: Response: No adverse reaction ll1 Medication: 08:10 VIS not applicable for this client. ll1 Outcome: 08:09 Condition: stable ll1 08:11 Discharge ordered by MD. vaz 08:46 Discharged to home ambulatory, ll1 08:46 Discharge instructions given to patient, Instructed on discharge instructions, follow up and referral plans. Demonstrated understanding of instructions, follow-up care, 08:50 Patient left the ED. ll1 Signatures: Claudia Gao FNP-C FNP-Ckb Lewis, Lynsay, RN RN ll1 Gina Mobley mg5
--- NOTE | 2023-08-09 08:12 | EDPHYS ---
Physician Documentation [facility] Name: Sharmaine Amaya Age: 73 yrs Sex: Female : 1950 Arrival Date: 08/09/2023 Time: 07:53 Bed IW1 Private MD: ED Physician Ralph Shook HPI: 08/09 08:09 This 73 yrs old Female presents to ER via Ambulatory with complaints of Pooping A Lot. kb 08:10 Patient is a 73-year-old female who presents for diarrhea that occurred 2 nights ago. kb States she has not had diarrhea since that night. Denies pain, nausea, vomiting, fever. States her friend had the same symptoms and came here, was given a shot so she came to get that same shot.. Historical: - Allergies: 08:00 BACITRACIN; ll1 08:00 benzalkonium chloride; ll1 08:00 Demerol; ll1 08:00 Gramicidin D; ll1 08:00 Iodinated Contrast Media - IV Dye; ll1 08:00 Morphine; ll1 08:00 Neomycin Sulfate; ll1 08:00 Polymyxin B Sulfate; ll1 08:00 triclosan; ll1 - PMHx: 08:00 Hallucinations; Hypothyroidism; ll1 - PSHx: 08:00 Leg SX bianka placement; ll1 - Immunization history:: Adult Immunizations up to date. - Social history:: Smoking status: Patient denies any tobacco usage or history of. ROS: 08:08 Constitutional: Negative for fever, chills, and weight loss, kb 08:08 All other systems are negative, Exam: 08:08 Constitutional: This is a well developed, well nourished patient who is awake, alert, kb and in no acute distress. Head/Face: Normocephalic, atraumatic. ENT: Moist Mucous membranes Cardiovascular: Regular rate Respiratory: Respirations even and unlabored. No increased work of breathing. Talking in full sentences Abdomen/GI: Soft, non-tender. No distention Skin: Warm, dry with normal turgor. Normal color. MS/ Extremity: Pulses equal, no cyanosis. Neurovascular intact. Full, normal range of motion. Neuro: Awake and alert, GCS 15, oriented to person, place, time, and situation. Moves all extremities. Normal gait. Vital Signs: 08:05 BP 184 / 94; Pulse 70; Resp 17; Temp 98.2; Pulse Ox 96% on R/A; Weight 47.17 kg; Height ll1 5 ft. 6 in. ; Pain 0/10; 08:05 Body Mass Index 16.79 (47.17 kg, 167.64 cm) ll1 08:05 Pain Scale: Adult ll1 MDM: 07:57 Patient medically screened. kb 08:08 Differential diagnosis: diarrhea, colitis, diverticulitis, gastroenteritis. Data kb reviewed: vital signs, nurses notes. Test considered but Not performed: Labs: cbc, cmp considered, but pt is asymptomatic and tolerating po intake. CT: ct abd considered, but pt has no abd pain and is asymptomatic at this time. Counseling: I had a detailed discussion with the patient and/or guardian regarding the historical points, exam findings, and any diagnostic results supporting the discharge/admit diagnosis, the need for outpatient follow up, a family practitioner, to return to the emergency department if symptoms worsen or persist or if there are any questions or concerns that arise at home. Administered Medications: 08:45 Drug: Ondansetron Oral Disintegrating Tablet Oral Disintegrating Tablet 4 mg PO once ll1 Route: PO; 08:49 Follow up: Response: No adverse reaction ll1 Disposition: 08:59 I was immediately available on-site in the Emergency Department for consultation in the ms3 care of the patient. Disposition Summary: 08/09/23 08:11 Discharge Ordered Notes: Location: Home kb Condition: Stable kb Diagnosis - Diarrhea, unspecified - resolved kb Followup: kb - With: Emergency Department - When: As needed - Reason: Worsening of condition Followup: kb - With: Private Physician - When: 2 - 3 days - Reason: Recheck today's complaints, Continuance of care, Re-evaluation by your physician Discharge Instructions: - Discharge Summary Sheet kb - Food Choices to Help Relieve Diarrhea, Adult kb - Diarrhea, Adult, Cdej-hr-Xwlx kb Forms: - Medication Reconciliation Form kb - Thank You Letter kb - Antibiotic Education kb - Prescription Opioid Use kb - Patient Portal Instructions kb - Leadership Thank You Letter kb Signatures: Claudia Gao, MODE SCHAFFER-Jessa Hartman RN RN ll1 Ralph Shook, DO ms3
[2023-08-09] MEDS ORDERED: ONDANSETRON 4 MG (ODT) TAB ONE (08:34)
[2023-08-09 09:17] VITALS: BP 184/94; TEMP 98.2; O2SAT 96
== END 2023-08-09 08:50 | disposition home or self-care (01) ==
LOC: ER 07:53
DX: R19.7 Diarrhea, unspecified (principal); Z88.1 Allergy status to other antibiotic agents; Z88.3 Allergy status to other anti-infective agents; Z88.5 Allergy status to narcotic agent; Z88.8 Allergy status to other drugs, medicaments and biological substances; Z91.041 Radiographic dye allergy status
CPT/HCPCS: 99283; Q0162

== ENCOUNTER 2023-08-18 03:02 | Emergency (ER) | payer OTHER ==
--- NOTE | 2023-08-18 03:26 | EDPHYS ---
Physician Documentation [facility] Name: Sharmaine Amaya Age: 73 yrs Sex: Female : 1950 Arrival Date: 08/18/2023 Time: 03:02 Bed 7 Private MD: ED Physician Sabas Licona HPI: 08/18 03:17 This 73 yrs old Female presents to ER via EMS with complaints of lower jessica extremity pain, swelling. 03:17 The patient presents with pain, that is acute. The complaints affect the right foot and jessica left foot. Context: The problem was sustained on a street or driveway. Modifying factors: The symptoms are alleviated by elevation of extremity, the symptoms are aggravated by weight bearing, wearing shoes. Associated signs and symptoms: Pertinent positives: swelling. Severity of symptoms: At their worst the symptoms were mild, in the emergency department the symptoms are unchanged. The patient has experienced similar episodes in the past, multiple times. Historical: - Allergies: 03:08 BACITRACIN; rv 03:08 benzalkonium chloride; rv 03:08 Demerol; rv 03:08 Gramicidin D; rv 03:08 Iodinated Contrast Media - IV Dye; rv 03:08 Morphine; rv 03:08 Neomycin Sulfate; rv 03:08 Polymyxin B Sulfate; rv 03:08 triclosan; rv - PMHx: 03:08 Hallucinations; Hypothyroidism; rv - PSHx: 03:08 Leg SX bianka placement; rv - Immunization history:: Adult Immunizations unknown. - Social history:: Smoking status: unknown. - Family history:: not pertinent. ROS: 03:17 Constitutional: Negative for fever, chills, and weight loss, Eyes: Negative for injury, jessica pain, redness, and discharge, ENT: Negative for injury, pain, and discharge, Neck: Negative for injury, pain, and swelling, Cardiovascular: Negative for chest pain, palpitations, and edema, Respiratory: Negative for shortness of breath, cough, wheezing, and pleuritic chest pain, Abdomen/GI: Negative for abdominal pain, nausea, vomiting, diarrhea, and constipation, Back: Negative for injury and pain, : Negative for injury, bleeding, discharge, and swelling, Skin: Negative for injury, rash, and discoloration, Neuro: Negative for headache, weakness, numbness, tingling, and seizure, Psych: Negative for depression, anxiety, suicide ideation, homicidal ideation, and hallucinations, Allergy/Immunology: Negative for hives, rash, and allergies, Endocrine: Negative for neck swelling, polydipsia, polyuria, polyphagia, and marked weight changes, Hematologic/Lymphatic: Negative for swollen nodes, abnormal bleeding, and unusual bruising, 03:17 MS/extremity: Positive for decreased range of motion, pain, of the right foot and left foot, Exam: 03:17 Constitutional: This is a well developed, well nourished patient who is awake, alert, jessica and in no acute distress. Head/Face: Normocephalic, atraumatic. Eyes: Pupils equal round and reactive to light, extra-ocular motions intact. Lids and lashes normal. Conjunctiva and sclera are non-icteric and not injected. Cornea within normal limits. Periorbital areas with no swelling, redness, or edema. ENT: Nares patent. No nasal discharge, no septal abnormalities noted. Tympanic membranes are normal and external auditory canals are clear. Oropharynx with no redness, swelling, or masses, exudates, or evidence of obstruction, uvula midline. Mucous membranes moist. Neck: Trachea midline, no thyromegaly or masses palpated, and no cervical lymphadenopathy. Supple, full range of motion without nuchal rigidity, or vertebral point tenderness. No Meningismus. Chest/axilla: Normal chest wall appearance and motion. Nontender with no deformity. No lesions are appreciated. Cardiovascular: Regular rate and rhythm with a normal S1 and S2. No gallops, murmurs, or rubs. Normal PMI, no JVD. No pulse deficits. Respiratory: Lungs have equal breath sounds bilaterally, clear to auscultation and percussion. No rales, rhonchi or wheezes noted. No increased work of breathing, no retractions or nasal flaring. Abdomen/GI: Soft, non-tender, with normal bowel sounds. No distension or tympany. No guarding or rebound. No evidence of tenderness throughout. Back: No spinal tenderness. No costovertebral tenderness. Full range of motion. Skin: Warm, dry with normal turgor. Normal color with no rashes, no lesions, and no evidence of cellulitis. Neuro: Awake and alert, GCS 15, oriented to person, place, time, and situation. Cranial nerves II-XII grossly intact. Motor strength 5/5 in all extremities. Sensory grossly intact. Cerebellar exam normal. Normal gait. Psych: Awake, alert, with orientation to person, place and time. Behavior, mood, and affect are within normal limits. 03:17 Musculoskeletal/extremity: ROM: full active range of motion, full passive range of motion, Pulses: noted to be 4+ in the right posterior tibial artery, right dorsalis pedis artery, left posterior tibial artery and left dorsalis pedis artery, Sensation intact. Compartment Syndrome exam of affected extremity: is normal. DVT Exam: negative Homans' sign noted on exam, no appreciated bluish discoloration, no erythema, no increased warmth, pain, swelling, tenderness, Vital Signs: 03:06 BP 130 / 88; Pulse 67; Resp 16; Temp 98; Pulse Ox 100% ; Weight 44.91 kg; Pain 5/10; rv 03:06 Pain Scale: Adult rv MDM: 03:08 Patient medically screened. jessica 03:22 Differential diagnosis: fracture, sprain, arthritis, cellulitis. Data reviewed: vital jessica signs, nurses notes, EMS record, lab test result(s), EKG, radiologic studies. Consideration of Admission/Observation Escalation of care including admission/observation considered. I considered the following discharge prescriptions or medication management in the emergency department Medications were administered in the Emergency Department. See MAR. Test considered but Not performed: Labs: no labs. Care significantly affected by the following chronic conditions: hypothyroid, hallucinations. Counseling: I had a detailed discussion with the patient and/or guardian regarding the historical points, exam findings, and any diagnostic results supporting the discharge/admit diagnosis, the need for outpatient follow up, for definitive care, a family practitioner. 08/18 03:17 Order name: PO challenge; Complete Time: 03:20 jessica Administered Medications: No medications were administered Disposition Summary: 08/18/23 03:26 Discharge Ordered Notes: Location: Home jessica Problem: new jessica Symptoms: have improved jessica Condition: Stable jessica Diagnosis - Pain in right foot jessica - Pain in left foot jessica - Edema, unspecified jessica Followup: jessica - With: Private Physician - When: 2 - 3 days - Reason: Recheck today's complaints, Continuance of care, Re-evaluation by your physician Discharge Instructions: - Discharge Summary Sheet jessica - Edema jessica - Musculoskeletal Pain jessica - Edema, [id number] jessica - Foot Pain jessica - Peripheral Edema jessica Forms: - Medication Reconciliation Form jessica - Thank You Letter jessica - Antibiotic Education jessica - Prescription Opioid Use jessica - Patient Portal Instructions jessica - Leadership Thank You Letter jessica Signatures: Sabas Licona MD MD cha Vicente, Ronaldo RN RN rv
--- NOTE | 2023-08-18 03:26 | ER ---
Nurse's Notes [facility] Name: Sharmaine Amaya Age: 73 yrs Sex: Female : 1950 Arrival Date: 08/18/2023 Time: 03:02 Bed 7 Private MD: Diagnosis: Pain in right foot;Pain in left foot;Edema, unspecified Presentation: 08/18 03:06 Chief complaint: EMS states: PT HAS BEEN WALKING FOR FEW HOURS AND NOW COMPLAINING OF rv LEG PAINS AND BACK PAIN. DENIES TRAUMA. Coronavirus screen: At this time, the client does not indicate any symptoms associated with coronavirus-19. Ebola Screen: No symptoms or risks identified at this time. Initial Sepsis Screen: Does the patient meet any 2 criteria? No. Patient's initial sepsis screen is negative. Does the patient have a suspected source of infection? No. Patient's initial sepsis screen is negative. Risk Assessment: Do you want to hurt yourself or someone else? Patient reports no desire to harm self or others. Onset of symptoms was August 18, 2023. 03:06 Method Of Arrival: EMS: [facility] [place] [place] [facility] rv 03:06 Acuity: YOKO 3 rv Triage Assessment: 03:08 General: Appears unkempt, Behavior is. Pain: Complains of pain in back, right leg and rv left leg. Neuro: Level of Consciousness is awake, alert, Oriented to person, place, time, situation. Cardiovascular: Capillary refill < 3 seconds Patient's skin is warm and dry. Respiratory: Airway is patent Respiratory effort is even, unlabored. GI: No signs and/or symptoms were reported involving the gastrointestinal system. : No signs and/or symptoms were reported regarding the genitourinary system. Derm: Skin is intact. Historical: - Allergies: 03:08 BACITRACIN; rv 03:08 benzalkonium chloride; rv 03:08 Demerol; rv 03:08 Gramicidin D; rv 03:08 Iodinated Contrast Media - IV Dye; rv 03:08 Morphine; rv 03:08 Neomycin Sulfate; rv 03:08 Polymyxin B Sulfate; rv 03:08 triclosan; rv - PMHx: 03:08 Hallucinations; Hypothyroidism; rv - PSHx: 03:08 Leg SX bianka placement; rv - Immunization history:: Adult Immunizations unknown. - Social history:: Smoking status: unknown. - Family history:: not pertinent. Screenin:10 [facility] ED Fall Risk Assessment (Adult) History of falling in the last 3 months, rv including since admission No falls in past 3 months (0 pts) Score/Fall Risk Level 0 - 2 = Low Risk Oriented to surroundings, Maintained a safe environment, Educated pt \T\ family on fall prevention, incl call for assistance when getting out of bed, Assessed \T\ reinforced patient's understanding of fall precautions. Abuse screen: Denies threats or abuse. Denies injuries from another. Nutritional screening: No deficits noted. Tuberculosis screening: No symptoms or risk factors identified. Vital Signs: 03:06 BP 130 / 88; Pulse 67; Resp 16; Temp 98; Pulse Ox 100% ; Weight 44.91 kg; Pain 5/10; rv 03:06 Pain Scale: Adult rv ED Course: 03:06 Patient arrived in ED. rv 03:07 Sabas Licona MD is Attending Physician. jessica 03:08 Triage completed. rv 03:08 Arm band placed on right wrist. rv 03:10 Patient has correct armband on for positive identification. Client placed on continuous rv cardiac and pulse oximetry monitoring. NIBP monitoring applied. 03:10 No provider procedures requiring assistance completed. rv 03:19 Nate Bertrand, RN is Primary Nurse. rv 03:56 Patient did not have IV access during this emergency room visit. vc1 Administered Medications: No medications were administered Medication: 03:10 VIS not applicable for this client. rv Outcome: 03:26 Discharge ordered by . jessica 03:55 Discharged to home via wheelchair, left message with son vc1 03:55 Condition: good 03:55 Discharge instructions given to patient, Instructed on discharge instructions, follow up and referral plans. Demonstrated understanding of instructions, follow-up care, 03:56 Patient left the ED. vc1 Signatures: Sabas Licona MD MD cha Vicente, Ronaldo, RN RN Shira Ortega RN RN vc1
[2023-08-18 04:05] VITALS: BP 130/88; TEMP 98; O2SAT 100
== END 2023-08-18 03:56 | disposition home or self-care (01) ==
LOC: ER 03:02
DX: M79.672 Pain in left foot (principal); M79.671 Pain in right foot; R60.9 Edema, unspecified
CPT/HCPCS: 99283

== ENCOUNTER → 2023-08-30 | Emergency (ER) | payer OTHER ==
--- NOTE | 2023-08-30 13:48 | RAD REPORT ---
EXAM DESCRIPTION: Nate Single View08/30/2023 1:19 pm CLINICAL HISTORY: Chest pain COMPARISON: 2013 FINDINGS: [id number] bilateral reticulonodular opacities within the lungs Heart is mildly enlarged IMPRESSION: Mild to moderate reticulonodular opacities within the lungs may indicate pneumonitis or atypical infection. Follow-up chest x-ray in a couple weeks recommended to assess stability
[2023-08-30 14:14] LABS: Protime INR 0.96
[2023-08-30 14:15] LABS: Specific Gravity 1.026 (1.005-1.030); Transitional Epithelial <5 /HPF (None Seen); Urine Bacteria None Seen /HPF (<20); Urine Bilirubin 1+ (Negative); Urine Blood Negative (Negative); Urine Clarity Turbid (Clear); Urine Color Yellow (Yellow); Urine Glucose TRACE (Negative); Urine Mucus Slight /HPF (None Seen); Urine Protein 1+ (Negative); Urine RBC <5 /HPF (None Seen); Urine Urobilinogen 1+ (Normal); Urine pH 5.5 (5.0-7.0)
[2023-08-30 14:18] LABS: Absolute Lymphocytes (CBC) 0.7 K/uL (0.7-4.9); Hematocrit 38.7 % (36.0-45.0); Lymphocytes % 9.3 % (15.3-44.8); MCV 86.9 fL (80-100); MPV 8.9 fL (7.6-11.3); Platelets 179 thou/uL (152-406); RBC Red Blood Cell Count 4.45 M/uL (3.86-4.86)
[2023-08-30 14:34] LABS: Barbiturates NEGATIVE (NEGATIVE); Benzodiazepines NEGATIVE (NEGATIVE); Cocaine NEGATIVE (NEGATIVE); METHAMPHETAM NEGATIVE (NEGATIVE); Methadone NEGATIVE (NEGATIVE); Opiates NEGATIVE (NEGATIVE); Phencyclidine NEGATIVE (NEGATIVE); THC Cannibis NEGATIVE (NEGATIVE)
[2023-08-30 15:18] LABS: ALT/SGPT 19 U/L (13-56); AST/SGOT 23 U/L (15-37); Albumin 3.5 g/dL (3.4-5.0); Alkaline Phosphatase 75 U/L (45-117); BUN Blood Urea Nitrogen 41 mg/dL (7-18); Bicarbonate 31 mEq/L (21-32); Bilirubin Direct 0.2 mg/dL (0-0.2); Bilirubin Indirect, Calculated 0.4 mg/dL (0.2-0.8); Bilirubin Total 0.6 mg/dL (0.2-1.0); Glomerular Filtration Rate 45 ml/min (=/>90); Glucose Level 103 mg/dL (74-106); Magnesium 1.9 mg/dL (1.6-2.4); Potassium 3.3 mEq/L (3.5-5.1); Sodium Level 145 mEq/L (136-145); Troponin High Sensitivity 21.9 pg/mL (<58.9)
[2023-08-30 15:27] LABS: Blood Morphology Comment NOTED (NOT SEEN); Macrocytosis 1+; Platelet Estimate ADEQ
--- NOTE | 2023-08-30 16:26 | EDPHYS ---
Physician Documentation [facility] Name: Sharmaine Amaya Age: 73 yrs Sex: Female : 1950 Arrival Date: 08/30/2023 Time: 12:49 Bed 3 Private MD: ED Physician Ralph Shook HPI: 08/30 17:28 This 73 yrs old Female presents to ER via EMS with complaints of Altered Mental Status. kb 17:28 Patient is a 73-year-old female who presents for altered mental status. EMS reports the kb son went to check on patient and the patient refused to speak so he called 911 to have her brought in for evaluation. Upon initial exam patient refuses to speak or open her eyes. Patient uncooperative during exam. Patient pulling arms away, closing eyes tight when I try to examine pupils, etc.. Historical: - Allergies: 13:02 BACITRACIN; iw 13:02 benzalkonium chloride; iw 13:02 Demerol; iw 13:02 Gramicidin D; iw 13:02 Iodinated Contrast Media - IV Dye; iw 13:02 Morphine; iw 13:02 Neomycin Sulfate; iw 13:02 Polymyxin B Sulfate; iw 13:02 triclosan; iw - PMHx: 13:02 Hallucinations; Hypothyroidism; iw - PSHx: 13:02 Leg SX bianka placement; iw ROS: 17:28 Constitutional: Negative for fever, chills, and weight loss, kb 17:28 Unable to obtain ROS due to patient being uncooperative, Exam: 17:28 Constitutional: This is a well developed, well nourished patient who is awake, alert, kb and in no acute distress. Head/Face: Normocephalic, atraumatic. ENT: Moist Mucous membranes Cardiovascular: Regular rate Respiratory: Respirations even and unlabored. No increased work of breathing. Talking in full sentences Abdomen/GI: Soft, non-tender. No distention Skin: Warm, dry with normal turgor. Normal color. Vital Signs: 12:59 BP 166 / 69; Pulse 59; Resp 16; Temp 97.9; Pulse Ox 99% on R/A; iw 14:44 BP 159 / 64; Pulse 61; Resp 16; Pulse Ox 100% ; iw 19:00 vc1 19:00 Pt refuses vitals vc1 MDM: 13:05 Patient medically screened. kb 17:28 Differential Diagnosis: electrolyte abnormality, hypoglycemia, overdose, UTI. Data kb reviewed: vital signs, nurses notes. Consideration of Admission/Observation Escalation of care including admission/observation considered. admission considered for AMS, but pt is now awake, alert and oriented. Pt at baseline . Counseling: I had a detailed discussion with the patient and/or guardian regarding the historical points, exam findings, and any diagnostic results supporting the discharge/admit diagnosis, lab results, radiology results, the need for outpatient follow up, a family practitioner, to return to the emergency department if symptoms worsen or persist or if there are any questions or concerns that arise at home. Refusal of service: The patient/guardian displays adequate decision making capability and despite a detailed discussion of alternatives, benefits, risks, and consequences refuses: CT Scan. ED course: Pt now awake and alert. Pt got up to bedside commode without assist. Pt eating and drinking. Has no complaints. Pt stable for discharge. 17:39 Historians other than the Patient: EMS: [facility] [place] [facility]. kb 08/30 13:10 Order name: Acetaminophen; Complete Time: 15:31 kb 08/30 13:10 Order name: Basic Metabolic Panel; Complete Time: 15:31 kb 08/30 13:10 Order name: CBC with Diff; Complete Time: 15:31 kb 08/30 13:10 Order name: ETOH Level; Complete Time: 14:15 kb 08/30 13:10 Order name: Hepatic Function; Complete Time: 15:31 kb 08/30 13:10 Order name: PT-INR; Complete Time: 14:17 kb 08/30 13:10 Order name: Ptt, Activated; Complete Time: 14:17 kb 08/30 13:10 Order name: Salicylate; Complete Time: 14:31 kb 08/30 13:10 Order name: Urinalysis w/ reflexes; Complete Time: 14:17 kb 08/30 13:10 Order name: Urine Drug Screen; Complete Time: 14:41 kb 08/30 13:10 Order name: Magnesium; Complete Time: 15:31 kb 08/30 13:10 Order name: Troponin High Sensitivity; Complete Time: 15:31 kb 08/30 15:27 Order name: Manual Differential; Complete Time: 15:31 EDMS 08/30 13:10 Order name: Chest Single View XRAY; Complete Time: 13:48 kb 08/30 13:10 Order name: EKG; Complete Time: 13:11 kb 08/30 13:10 Order name: EKG - Nurse/Tech; Complete Time: 13:40 kb 08/30 13:10 Order name: IV Saline Lock; Complete Time: 13:40 kb 08/30 13:10 Order name: Labs collected and sent; Complete Time: 15:01 kb 08/30 13:10 Order name: Cardiac monitoring; Complete Time: 13:40 kb 08/30 13:10 Order name: NPO; Complete Time: 13:16 kb 08/30 13:10 Order name: O2 Per Protocol; Complete Time: 13:16 kb 08/30 13:10 Order name: O2 Sat Monitoring; Complete Time: 13:16 kb 08/30 14:05 Order name: Labs - recollect needed: re collect green top; Complete Time: 14:50 bd 08/30 16:22 Order name: PO challenge; Complete Time: 17:03 kb Administered Medications: No medications were administered Disposition: 19:51 I was immediately available on-site in the Emergency Department for consultation in the ms3 care of the patient. Disposition Summary: 08/30/23 16:25 Discharge Ordered Notes: Location: Home kb Condition: Stable kb Diagnosis - Altered mental status, unspecified - resolved kb Followup: kb - With: Emergency Department - When: As needed - Reason: Worsening of condition Followup: kb - With: Private Physician - When: 2 - 3 days - Reason: Recheck today's complaints, Continuance of care, Re-evaluation by your physician Discharge Instructions: - Discharge Summary Sheet kb - Managing Bipolar Disorder kb Forms: - Medication Reconciliation Form kb - Thank You Letter kb - Antibiotic Education kb - Prescription Opioid Use kb - Patient Portal Instructions kb - Leadership Thank You Letter kb Signatures: Dispatcher [employer] EDMS Claudia Gao, HAND SCRAPER-C HAND SCRAPER-Staci Garcia Irene, CLAUDIA RN iw Ralph Shook DO DO ms3 Corrections: (The following items were deleted from the chart) 15:01 13:10 Suicide Screening ([place]) ordered. kb iw 16:15 13:11 Head Brain Wo Cont+CT.RAD.BRZ ordered. EDMS EDMS
--- NOTE | 2023-08-30 16:26 | ER ---
Nurse's Notes [facility] Name: Sharmaine Amyaa Age: 73 yrs Sex: Female : 1950 Arrival Date: 08/30/2023 Time: 12:49 Bed 3 Private MD: Diagnosis: Altered mental status, unspecified-resolved Presentation: 08/30 12:59 Chief complaint: EMS states: pt refusing to respond verbally, was found by son this iw morning, not speaking, not cooperating, EMS reports BS of 57 , started a D10 drip, BS up to 98 , pt still refuses to speak, attempting to hit staff when trying to place in gown. Coronavirus screen: At this time, the client does not indicate any symptoms associated with coronavirus-19. Ebola Screen: Patient negative for fever greater than or equal to 101.5 degrees Fahrenheit, and additional compatible Ebola Virus Disease symptoms Patient denies exposure to infectious person. Patient denies travel to an Ebola-affected area in the 21 days before illness onset. No symptoms or risks identified at this time. 12:59 Method Of Arrival: EMS: [facility] [place] [facility] iw 12:59 Acuity: YOKO 3 iw 12:59 Onset of symptoms was August 30, 2023. iw Historical: - Allergies: 13:02 BACITRACIN; iw 13:02 benzalkonium chloride; iw 13:02 Demerol; iw 13:02 Gramicidin D; iw 13:02 Iodinated Contrast Media - IV Dye; iw 13:02 Morphine; iw 13:02 Neomycin Sulfate; iw 13:02 Polymyxin B Sulfate; iw 13:02 triclosan; iw - PMHx: 13:02 Hallucinations; Hypothyroidism; iw - PSHx: 13:02 Leg SX bianka placement; iw Screenin:31 [facility] ED Fall Risk Assessment (Adult) Score/Fall Risk Level 3 or more points = High iw Risk. Abuse screen: Denies threats or abuse. Denies injuries from another. Nutritional screening: Difficulty chewing/swallowing?. Tuberculosis screening: No symptoms or risk factors identified. Assessment: 13:30 Reassessment: pt now opening her eyes , states she needs to use the potty, requesting iw the potty chair be raised up higher , unable to get chair up higher, after verbal encouragement pt agrees to use BSC in low position. 13:58 Reassessment: pt able to get to BSC and back into bed without assistance. iw 17:30 Reassessment: Patient appears in no apparent distress at this time. Patient and/or iw family updated on plan of care and expected duration. Pain level reassessed. pt sitting up eating. 19:15 Reassessment: Spoke on the phone with son, gave discharge instruction. Son will come vc1 and pick her up from the lobby. 19:33 Reassessment: No changes from previously documented assessment. Patient and/or family vc1 updated on plan of care and expected duration. Pain level reassessed. General: Behavior is uncooperative. Neuro: Level of Consciousness is awake, Oriented to person, place, situation. Vital Signs: 12:59 BP 166 / 69; Pulse 59; Resp 16; Temp 97.9; Pulse Ox 99% on R/A; iw 14:44 BP 159 / 64; Pulse 61; Resp 16; Pulse Ox 100% ; iw 19:00 vc1 19:00 Pt refuses vitals vc1 ED Course: 12:58 Patient arrived in ED. iw 13:01 Triage completed. iw 13:02 Arm band placed on. iw 13:05 Claudia Gao FNP-C is [facility]. kb 13:05 Ralph Shook DO is Attending Physician. kb 13:20 Chest Single View XRAY In Process Unspecified. EDMS 13:20 Gisselle Mercado, RN is Primary Nurse. iw 13:33 Maintain EMS IV. Dressing intact. Good blood return noted. Site clean \T\ dry. Gauge \T\ iw site: 20 LAC. 13:56 Radiology exam delayed due to pt refusing CT scan. ls3 19:06 No provider procedures requiring assistance completed. IV discontinued, intact, iw bleeding controlled, No redness/swelling at site. Pressure dressing applied. Administered Medications: No medications were administered Medication: 13:34 VIS not applicable for this client. iw Outcome: 16:25 Discharge ordered by . kb 19:32 Discharged to home via wheelchair, vc1 19:32 Condition: improved 19:32 Discharge instructions given to Son Instructed on discharge instructions, Demonstrated understanding of instructions, follow-up care, 19:35 Patient left the ED. vc1 Signatures: Dispatcher [employer] EDFL Claudia Gao FNP-C FNP-Gisselle Turpin, RN RN iw Artur Bhatti ls3 Shira Ortega RN RN vc1 Corrections: (The following items were deleted from the chart) 13:32 12:59 BP 166 / 69; juanito solomon
[2023-08-30 19:51] VITALS: BP 159/64; TEMP 97.9; O2SAT 100
--- NOTE | 2023-09-01 15:14 | EKG ---
Test Date: 2023-08-30 Test Time: 13:33:38 Mammographer: SOSA MEASUREMENT RESULTS: Intervals: Rate: 64 NC: 160 QRSD: 78 QT: 476 QTc: 491 [place]: P: 88 NC: 160 QRS: 81 T: 79 INTERPRETIVE STATEMENTS: Normal sinus rhythm Normal ECG Compared to ECG 04/26/2023 04:32:00 Left ventricular hypertrophy no longer present ST (T wave) deviation no longer present Electronically Signed On 09-01-23 15:09:46 SOIL EXPERT by Ildefonso Knox
== END ==
LOC: ER 12:49
DX: R41.82 Altered mental status, unspecified (principal); Z88.1 Allergy status to other antibiotic agents; Z88.3 Allergy status to other anti-infective agents; Z88.5 Allergy status to narcotic agent; Z88.8 Allergy status to other drugs, medicaments and biological substances; Z91.041 Radiographic dye allergy status
CPT/HCPCS: 36415; 71045; 80048; 80076; 80143; 80179; 80307; 81001; 82077; 83735; 84484; 85025; 85610; 85730; 93005; 99283

== ENCOUNTER 2023-09-21 11:07 | Inpatient (IN) | payer OTHER ==
[2023-09-21] MEDS ORDERED: NA CHLORIDE 0.9% 1,000 ML ONE (12:04)
[2023-09-21 12:11] LABS: Absolute Lymphocytes (CBC) 0.4 K/uL (0.7-4.9); Hematocrit 42.3 % (36.0-45.0); Lymphocytes % 4.4 % (15.3-44.8); MCV 88.4 fL (80-100); MPV 8.9 fL (7.6-11.3); Platelets 234 thou/uL (152-406); RBC Red Blood Cell Count 4.79 M/uL (3.86-4.86)
--- NOTE | 2023-09-21 12:20 | RAD REPORT ---
EXAM DESCRIPTION: Nate Single View09/21/2023 12:07 pm CLINICAL HISTORY: sob COMPARISON: August 2023 FINDINGS: The lungs are moderately hyperaerated. The lungs appear clear of acute infiltrate. The heart is normal size IMPRESSION: No acute abnormalities displayed
[2023-09-21 12:33] LABS: SARS-CoV-2 Antigen Rapid Res Negative (Negative)
[2023-09-21 12:35] LABS: Protime INR 1.09
[2023-09-21 13:23] LABS: Bilirubin Direct 0.5 mg/dL (0-0.2); Bilirubin Indirect, Calculated 0.6 mg/dL (0.2-0.8); Bilirubin Total 1.1 mg/dL (0.2-1.0); Magnesium 2.2 mg/dL (1.6-2.4); Potassium 3.6 mEq/L (3.5-5.1); Protein, Total 7.5 g/dL (6.4-8.2)
[2023-09-21 13:24] LABS: Troponin High Sensitivity 70.5 pg/mL (<58.9)
[2023-09-21] MEDS ORDERED: CEFEPIME 1 GM/VIAL ONE (13:30)
[2023-09-21] MEDS ORDERED: NA CHLORIDE 0.9% 100 ML ONE (13:30)
--- NOTE | 2023-09-21 13:33 | ER ---
Nurse's Notes [facility] Name: Sharmaine Amaya Age: 73 yrs Sex: Female : 1950 Arrival Date: 09/21/2023 Time: 11:07 Bed 3 Private MD: Diagnosis: Lactic acidosis, dehydration, possible sepsis Presentation: 09/21 11:30 Chief complaint: EMS states: patients son called EMS due to patient being "on the ko1 toilet for a day and could not get up", she is weak and short of breath. Coronavirus screen: At this time, the client does not indicate any symptoms associated with coronavirus-19. Ebola Screen: No symptoms or risks identified at this time. Initial Sepsis Screen: Does the patient meet any 2 criteria? No. Patient's initial sepsis screen is negative. Does the patient have a suspected source of infection? No. Patient's initial sepsis screen is negative. Risk Assessment: Do you want to hurt yourself or someone else? Patient reports no desire to harm self or others. Onset of symptoms is unknown. 11:30 Method Of Arrival: EMS: [facility] ko1 11:30 Acuity: YOKO 2 ko1 Triage Assessment: 11:30 General: Appears ill, unkempt, emaciated, malnourished, cachectic. ko1 Historical: - Allergies: 12:12 BACITRACIN; ld1 12:12 benzalkonium chloride; ld1 12:12 Demerol; ld1 12:12 Gramicidin D; ld1 12:12 Iodinated Contrast Media - IV Dye; ld1 12:12 Morphine; ld1 12:12 Neomycin Sulfate; ld1 12:12 Polymyxin B Sulfate; ld1 12:12 triclosan; ld1 - PMHx: 12:12 Hallucinations; Hypothyroidism; ld1 - PSHx: 12:12 Leg SX bianka placement; ld1 - Immunization history:: Adult Immunizations up to date. - Social history:: Smoking status: unknown. Screenin:13 [facility] ED Fall Risk Assessment (Adult) History of falling in the last 3 months, ld1 including since admission No falls in past 3 months (0 pts). Abuse screen: Denies threats or abuse. Denies injuries from another. Nutritional screening: No deficits noted. Tuberculosis screening: No symptoms or risk factors identified. Assessment: 12:00 Reassessment: Straight cath inserted, no urine return. Notified ERP at this time. ld1 12:10 Reassessment: Notified ERP and charge nurse that we needed IV access due to 4 missed ld1 attempts. 12:13 General: Appears in no apparent distress. uncomfortable, Behavior is cooperative. Pain: ld1 Denies pain. Neuro: Level of Consciousness is confused, Oriented to none. Cardiovascular: Capillary refill < 3 seconds. Respiratory: Airway is patent Respiratory effort is even, unlabored. GI: Abdomen is flat, non-distended. : No signs and/or symptoms were reported regarding the genitourinary system. unable to received urine. Pt dry and reports not drinking water in days. EENT: No signs and/or symptoms were reported regarding the EENT system. Derm: No signs and/or symptoms reported regarding the dermatologic system. Musculoskeletal: No signs and/or symptoms reported regarding the musculoskeletal system. 12:15 Reassessment: Pt cool to touch, rectal temperature taken. Warm blankets provided. PO ld1 fluids administered. 14:00 Reassessment: No changes from previously documented assessment. Patient and/or family ld1 updated on plan of care and expected duration. Pain level reassessed. 15:35 Reassessment: No changes from previously documented assessment. Patient and/or family ld1 updated on plan of care and expected duration. Pain level reassessed. Vital Signs: 11:24 BP 79 / 51; Pulse 91; ld1 12:00 BP 77 / 53; Pulse 78; ld1 12:03 Weight 36.74 kg; ld1 12:53 Temp 90.7(R); cm10 13:03 BP 108 / 63; Pulse 74; Resp 18; Pulse Ox 100% ; ko1 13:27 BP 112 / 65; Pulse 69; Resp 18; Pulse Ox 100% on R/A; ld1 15:31 BP 122 / 69; Pulse 79; Resp 16; Pulse Ox 100% on R/A; ld1 17:25 BP 120 / 64; Pulse 80; Resp 15; Temp 98.5(TE); Pulse Ox 99% on R/A; ko1 17:49 Temp 97.9(R); ld1 ED Course: 11:11 Patient arrived in ED. ld1 11:11 Guillermo Webber MD is Attending Physician. sp3 11:20 Missed attempt(s): 24 gauge in left wrist. ld1 11:30 Patient placed in an exam room, on a stretcher, on teletypesetter monitor, on pulse oximetry, ko1 Patient notified of wait time. 11:32 Missed attempt(s): 22 gauge in left forearm. ld1 11:35 Repositioned patient. Cleaned of incontinence. Linen changed. ld1 11:40 Straight cath inserted, using sterile technique, No urine obtained. Notified ERP. ld1 11:41 Missed attempt(s): 24 gauge in left hand. ld1 12:00 Warm blanket given. Pillow given. Bear hugger applied to patient. ld1 12:00 PO fluids given. ld1 12:08 XRAY Chest (1 view) In Process Unspecified. EDMS 12:13 Kate Shook, CLAUDIA is Primary Nurse. ld1 12:13 No provider procedures requiring assistance completed. ld1 12:13 Patient has correct armband on for positive identification. Placed in gown. Bed in low ld1 position. Call light in reach. Side rails up X2. gambling monitor on. Pulse ox on. NIBP on. Door closed. Noise minimized. Warm blanket given. 12:17 Missed attempt(s): 22 gauge in right antecubital area. zm 12:17 Inserted saline lock: 24 gauge in right wrist, using aseptic technique. Blood collected.zm 12:53 Thermoregulation: warm blanket given to patient. Josep blanket applied. cm10 13:02 Triage completed. ko1 13:31 Arsalan Faith MD is Hospitalizing Provider. sp3 15:19 CT Head Brain wo Cont In Process Unspecified. EDMS 15:22 CT Abd/Pelvis - Without Contrast In Process Unspecified. EDMS 15:32 PO fluids given. ld1 17:25 Patient admitted, IV remains in place. ko1 17:25 Provided Education on: na. ko1 Administered Medications: 12:08 Drug: NS 0.9% IV (30 ml/kg) 30 ml/kg IV at bolus once; Sepsis Protocol Route: IV; Rate: ld1 bolus; Site: right wrist; 13:36 Drug: Cefepime IVPB 1 grams IVPB at 200 ml/hr once over 30 mins; (mix in NS 100 mL) ld1 Route: IVPB; Rate: 200 ml/hr; Infused Over: 30 mins; Site: left jugular; Medication: 17:25 VIS not applicable for this client. ko1 Outcome: 13:33 Decision to Hospitalize by Provider. sp3 17:25 Admitted to Tele accompanied by tech, via stretcher, room 408, with chart, ko1 17:25 Condition: improved 17:25 Instructed on the need for admit, 18:36 Patient left the ED. ld1 Signatures: Dispatcher [employer] EDMS Kate Shook RN RN ld1 Guillermo Webber MD MD sp3 Luz Velez Kathy, RN RN ko1 Caroline Velez RN RN cm10 Corrections: (The following items were deleted from the chart) 17:27 17:25 BP 120 / 64; Pulse 80bpm; Resp 15bpm; Pulse Ox 99% RA; ko1 ko1
--- NOTE | 2023-09-21 13:33 | EDPHYS ---
Physician Documentation [facility] Name: Sharmaine Amaya Age: 73 yrs Sex: Female : 1950 Arrival Date: 09/21/2023 Time: 11:07 Bed 3 Private MD: ED Physician Guillermo Webber HPI: 09/21 11:16 This 73 yrs old Female presents to ER via Unassigned with complaints of sp3 weakness/dyspnea. 11:16 73-year-old female with history of hypothyroidism, psychiatric history presents via EMS sp3 for chief complaint generalized weakness and mild shortness of breath while sitting "on the toilet". Patient states that she has been "on the toilet for a day" and has been feeling this way. Patient's son activated EMS to her home after which patient was transported here. Patient was incontinent of urine but there is no reports of seizure history or any other neurological changes. Patient minimally communicative and therefore review of systems, history and physical are severely limited. This is similar to her prior presentation in August 2023 here at this facility.. Historical: - Allergies: 12:12 BACITRACIN; ld1 12:12 benzalkonium chloride; ld1 12:12 Demerol; ld1 12:12 Gramicidin D; ld1 12:12 Iodinated Contrast Media - IV Dye; ld1 12:12 Morphine; ld1 12:12 Neomycin Sulfate; ld1 12:12 Polymyxin B Sulfate; ld1 12:12 triclosan; ld1 - PMHx: 12:12 Hallucinations; Hypothyroidism; ld1 - PSHx: 12:12 Leg SX bianka placement; ld1 - Immunization history:: Adult Immunizations up to date. - Social history:: Smoking status: unknown. ROS: 11:19 Unable to obtain ROS due to patient being uncooperative, sp3 Exam: 11:19 Head/Face: Normocephalic, atraumatic. Eyes: Pupils equal round and reactive to light, sp3 extra-ocular motions intact. Lids and lashes normal. Conjunctiva and sclera are non-icteric and not injected. Cornea within normal limits. Periorbital areas with no swelling, redness, or edema. ENT: Nares patent. No nasal discharge, no septal abnormalities noted. External auditory canals are clear. Oropharynx with no redness, swelling, or masses, exudates, or evidence of obstruction, uvula midline. Mucous membranes moist. Neck: Trachea midline, no thyromegaly or masses palpated, and no cervical lymphadenopathy. Supple, full range of motion without nuchal rigidity, or vertebral point tenderness. No Meningismus. Chest/axilla: Normal chest wall appearance and motion. Nontender with no deformity. No lesions are appreciated. Cardiovascular: Regular rate and rhythm with a normal S1 and S2. No gallops, murmurs, or rubs. Normal PMI, no JVD. No pulse deficits. Respiratory: Lungs have equal breath sounds bilaterally, clear to auscultation and percussion. No rales, rhonchi or wheezes noted. No increased work of breathing, no retractions or nasal flaring. Abdomen/GI: Soft, non-tender, with normal bowel sounds. No distension or tympany. No guarding or rebound. No evidence of tenderness throughout. Back: No spinal tenderness. No costovertebral tenderness. Full range of motion. Skin: Warm, dry with normal turgor. Normal color with no rashes, no lesions, and no evidence of cellulitis. MS/ Extremity: Pulses equal, no cyanosis. Neurovascular intact. Full, normal range of motion. Psych: Awake, alert, with orientation to person, place and time. Behavior, mood, and affect are within normal limits. 11:19 Neuro: Patient globally weak with grossly no neurological deficits. She is speaking when she gets asked questions. She has no complaints currently except "being weak", Vital Signs: 11:24 BP 79 / 51; Pulse 91; ld1 12:00 BP 77 / 53; Pulse 78; ld1 12:03 Weight 36.74 kg; ld1 12:53 Temp 90.7(R); cm10 13:03 BP 108 / 63; Pulse 74; Resp 18; Pulse Ox 100% ; ko1 13:27 BP 112 / 65; Pulse 69; Resp 18; Pulse Ox 100% on R/A; ld1 15:31 BP 122 / 69; Pulse 79; Resp 16; Pulse Ox 100% on R/A; ld1 17:25 BP 120 / 64; Pulse 80; Resp 15; Temp 98.5(TE); Pulse Ox 99% on R/A; ko1 17:49 Temp 97.9(R); ld1 MDM: 11:11 Patient medically screened. sp3 11:20 Data reviewed: vital signs, nurses notes, EMS record, old medical records, lab test sp3 result(s), EKG, radiologic studies. ED course: 73-year-old female with generalized weakness, resolved dyspnea who presents to the ED via EMS. Differential diagnosis is broad and includes failure to thrive, UTI, other infection, electrolyte abnormality among others. I am not highly suspicious for acute coronary syndrome, vascular compromise, or any other pathology. Patient does not meet sepsis criteria currently but we will continue to reevaluate. Workup will include chest x-ray, urine analysis, laboratory values, EKG and general supportive care.. 12:34 ED course: Blood pressure continues to be low and we have given sepsis bolus of normal sp3 saline. WBC count is normal however there is a left shift. Lactate is 11.0. Given these findings we will continue IV hydration and admit patient. Will also start prophylactic antibiotics given left shift.. 13:30 ED course: Electrolytes reviewed. Patient is hypothermic at 90.7 and Josep hugger has sp3 been applied as well. Vital signs are improved with blood pressure 112/65 and heart rate at 70. Patient will be admitted to hospital service at this time.. 09/21 11:13 Order name: Basic Metabolic Panel; Complete Time: 13:30 sp3 09/21 11:13 Order name: CBC with Diff; Complete Time: 15:45 sp3 09/21 11:13 Order name: LFT's; Complete Time: 13:30 sp3 09/21 11:13 Order name: Magnesium; Complete Time: 13:30 sp3 09/21 11:13 Order name: NT PRO-BNP; Complete Time: 13:30 sp3 09/21 11:13 Order name: PT-INR; Complete Time: 12:59 sp3 09/21 11:13 Order name: Troponin HS; Complete Time: 13:30 sp3 09/21 11:13 Order name: UAM sp3 09/21 11:13 Order name: Flu; Complete Time: 12:59 sp3 09/21 11:13 Order name: SARS RAPID; Complete Time: 12:35 sp3 09/21 11:13 Order name: AMMONIA; Complete Time: 12:29 sp3 09/21 11:56 Order name: Blood Culture Adult (2) ko1 09/21 11:56 Order name: Lactate w/ 2H reflex if indic.; Complete Time: 12:35 [facility] 09/21 14:19 Order name: CBC Smear Scan; Complete Time: 15:45 [facility] 09/21 14:53 Order name: CK; Complete Time: 15:45 [facility] 09/21 14:53 Order name: TSH; Complete Time: 15:45 [facility] 09/21 14:53 Order name: T4 Free; Complete Time: 15:45 [facility] 09/21 15:45 Order name: Lactate Sepsis 2 HR Follow-up; Complete Time: 15:49 [facility] 09/21 15:51 Order name: Lab Add On [facility] 09/21 15:53 Order name: Liver (Hepatic) Function [facility] 09/21 16:37 Order name: CBC with Automated Diff [facility] 09/21 16:37 Order name: CBC with Automated Diff [facility] 09/21 16:37 Order name: Comprehensive Metabolic Panel [facility] 09/21 16:37 Order name: Comprehensive Metabolic Panel [facility] 09/21 16:38 Order name: ABG Arterial Blood Gas [facility] 09/21 11:13 Order name: XRAY Chest (1 view); Complete Time: 12:29 [facility] 09/21 14:53 Order name: CT Head Brain wo Cont [facility] 09/21 14:53 Order name: CT Abd/Pelvis - Without Contrast [facility] 09/21 16:37 Order name: Echo with Doppler [facility] 09/21 11:13 Order name: EKG; Complete Time: 11:14 [facility] 09/21 16:37 Order name: CONS Physician Consult [facility] 09/21 11:13 Order name: Cardiac monitoring; Complete Time: 11:19 [facility] 09/21 11:13 Order name: EKG - Nurse/Tech; Complete Time: 12:12 [facility] 09/21 11:13 Order name: IV Saline Lock; Complete Time: 12:03 [facility] 09/21 11:13 Order name: Labs collected and sent; Complete Time: 12:04 [facility] 09/21 11:13 Order name: O2 Per Protocol; Complete Time: 11:19 3 09/21 11:13 Order name: O2 Sat Monitoring; Complete Time: 11:19 [facility] 09/21 11:13 Order name: Cath: For UA; Complete Time: 12:09 [facility] 09/21 11:57 Order name: IV Saline Lock - Large Bore; Complete Time: 12:49 sp3 09/21 12:22 Order name: Labs - recollect needed: recollect light green top please; Complete Time: em1 12:39 Administered Medications: 12:08 Drug: NS 0.9% IV (30 ml/kg) 30 ml/kg IV at bolus once; Sepsis Protocol Route: IV; Rate: ld1 bolus; Site: right wrist; 13:36 Drug: Cefepime IVPB 1 grams IVPB at 200 ml/hr once over 30 mins; (mix in NS 100 mL) ld1 Route: IVPB; Rate: 200 ml/hr; Infused Over: 30 mins; Site: left jugular; Disposition Summary: 09/21/23 13:33 Hospitalization Ordered Notes: Hospitalization Status: Inpatient Admission sp3 Provider: Arsalan Faith3 Location: Telemetry/MedSurg (Inpatient) sp3 Condition: Stable sp3 Problem: an acute exacerbation sp3 Symptoms: have worsened sp3 Bed/Room Type: Standard sp3 Room Assignment: 408(09/21/23 16:45) em1 Diagnosis - Lactic acidosis, dehydration, possible sepsis sp3 Forms: - Medication Reconciliation Form sp3 - SBAR form sp3 - Leadership Thank You Letter sp3 Signatures: Dispatcher [employer] Damián Solo em1 Kate Shook RN RN ld1 Guillermo Webber MD MD sp3 Corrections: (The following items were deleted from the chart) 12:33 11:16 73-year-old female with history of hypothyroidism, psychiatric history presents sp3 via EMS for chief complaint generalized weakness and mild shortness of breath while sitting "on the toilet". Patient states that she has been "on the toilet for a day" and has been feeling this way. Patient's son activated EMS to her home after which patient was transported here. Patient was incontinent of urine but there is no reports of seizure history or any other neurological changes. Patient minimally communicative and therefore review of systems, history and physical are severely limited. This is similar to her prior presentation in August 2023 here at this facility.. sp3 16:45 13:33 sp3 em1
[2023-09-21 14:19] LABS: Blood Morphology Comment NOT SEEN (NOT SEEN); Platelet Estimate ADEQ; White Blood Cell Scan OK (OK)
[2023-09-21 15:42] LABS: Thyroid Stimulating Hormone 4.74 uIU/mL (0.358-3.740)
[2023-09-21 16:13] LABS: Albumin 3.3 g/dL (3.4-5.0); Bilirubin Direct 0.4 mg/dL (0-0.2); Bilirubin Indirect, Calculated 0.5 mg/dL (0.2-0.8); Bilirubin Total 0.9 mg/dL (0.2-1.0); Protein, Total 6.4 g/dL (6.4-8.2)
--- NOTE | 2023-09-21 16:25 | RAD REPORT ---
EXAM DESCRIPTION: CT - Abdomen Pelvis Wo Contrast - 09/21/2023 3:21 pm CLINICAL HISTORY: AMS / Lactic Acidosis COMPARISON: CT ABDOMEN PELVIS WO CONTRAST dated 09/29/2014; CT ABD PELVIS W CONTRAST dated 08/16/2014; CT ABD PELVIS W CONTRAST dated 06/08/2014 TECHNIQUE: Thin cut axial CT imaging of the abdomen and pelvis was performed without IV contrast. Mu ltiplanar reformats were generated and reviewed. All CT scans are performed using dose optimization technique as appropriate and may include automated exposure control or mA/KV adjustment according to patient size. FINDINGS: No suspicious findings in the lung bases. The liver, spleen, adrenal glands, and pancreas show no suspicious findings. Gallbladder layering hyp erdense material suggestive of sludge. Symmetric renal contour, without suspicious parenchymal findings within limits of noncontrast techniq ue. No evidence of radiopaque calculi or hydroureteronephrosis. No dilated bowel loops or bowel wall thickening. No free air, free fluid or inflammatory stranding. N o hernia, mass or bulky lymphadenopathy. The urinary bladder is without significant finding. No suspicious bony findings. Superior endplate compression deformities at T12 and L4, appear to be ch ronic although ultimately of indeterminate age. IMPRESSION: No acute intra-abdominal process. Superior endplate compression deformities at T12 and L4, of favored to be chronic, but ultimately of indeterminate age please correlate with any focal pain at those levels.
[2023-09-21] MEDS ORDERED: ACETAMINOPHEN 500 MG TAB PO PRN (16:33)
[2023-09-21] MEDS ORDERED: ONDANSETRON 4 MG/2 ML VIAL IV PRN (16:33)
--- NOTE | 2023-09-21 16:39 | RAD REPORT ---
EXAM DESCRIPTION: CT - Head Brain Wo Cont - 09/21/2023 3:19 pm CLINICAL HISTORY: CONFUSED COMPARISON: No comparisons TECHNIQUE: Noncontrast head CT images were obtained without IV contrast. Multiplanar reformats were generated and reviewed. All CT scans are performed using dose optimization technique as appropriate and may include automated exposure control or mA/KV adjustment according to patient size. FINDINGS: No intracranial hemorrhage, mass, or edema. Midline structures are unremarkable. Normal ventricular caliber for age. Beltrán-white matter differentiation is preserved, without evidence of acute infarct. No abnormal extra- axial fluid collections. Mastoid air cells and visualized portions of the paranasal sinuses are clear. No acute bony findings. IMPRESSION: No evidence of an acute intracranial process.
[2023-09-21 17:30] LABS: Arterial Blood Carboxyhemoglob 0.8 % (0-1.5); Blood O2 Saturation 96.5 % (92-98.5)
[2023-09-21] MEDS: NA CHLORIDE 0.9% 1,000 ML IV SCH (19:50)
[2023-09-21 20:09] VITALS: BMI 17.1
[2023-09-22] MEDS ORDERED: HYDRALAZINE HCL 20 MG/ML VIAL IV ONE (05:33)
[2023-09-22] MEDS: NA CHLORIDE 0.9% 1,000 ML IV SCH ×3 (05:59→16:39)
[2023-09-22 07:09] LABS: Absolute Lymphocytes (CBC) 0.5 K/uL (0.7-4.9); Hematocrit 33.2 % (36.0-45.0); MCV 86.3 fL (80-100); MPV 9.2 fL (7.6-11.3); Platelets 150 thou/uL (152-406); RBC Red Blood Cell Count 3.84 M/uL (3.86-4.86)
[2023-09-22 08:12] LABS: Albumin 3.2 g/dL (3.4-5.0); Potassium 3.9 mEq/L (3.5-5.1)
--- NOTE | 2023-09-22 08:16 | P.PN ---
Subjective Date of Service: 09/22/23 Chief Complaint: protein malnutrion, hypotenison, lactic acidosis eyes open to verbal, confused, cachectic, moderate generalized weakness Physical Examination Reviewed General: Oriented x1, Cachectic, Confused, Other (Emaciated) HEENT: Atraumatic, Normocephalic, Other (Temporal wasting) Neck: Supple, 2+ carotid pulse no bruit, JVD not distended, No Thyromegaly Respiratory: Clear to auscultation bilaterally, Normal air movement Cardiovascular: Regular rate/rhythm, Normal S1 S2, Systolic murmur Gastrointestinal: Normal bowel sounds, Soft and benign, Non-distended, W/out hepatomegaly, W/out splenomegaly Musculoskeletal: No clubbing, No swelling Integumentary: Other (blanching) Neurological: Other (Altered mental status; generalized weakness;), Abnormal gait, Abnormal speech, Abnormal strength, Abnormal tone, Abnormal sensation, Abnormal cranial nerve function, Abnormal affect Review of Systems per HPI Physical Examination - Vital Signs Temperature: 98.2 F Blood Pressure: 172/80 Pulse: 101 Respirations: 16 Pulse Ox (%): 97 - Studies Laboratory Data (last 24 hrs) 09/21/23 09/21/23 09/21/23 15:07 12:38 11:59 WBC Hgb Hct Plt Count PT 12.0 INR 1.09 Sodium 142 Potassium 3.6 BUN 41 H Creatinine 2.50 H Glucose 234 H Magnesium 2.2 Total Bilirubin 0.9 1.1 H AST 1816 H 1513 H ALT 669 H 671 H Alkaline Phosphatase 69 84 09/21/23 11:54 WBC 9.40 Hgb 13.9 Hct 42.3 Plt Count 234 PT INR Sodium Potassium BUN Creatinine Glucose Magnesium Total Bilirubin AST ALT Alkaline Phosphatase Microbiology Data (last 24 hrs): 09/21/23 12:00 Blood - Blood Anaerobic Blood Culture - Final 09/21/23 12:04 Nasopharnyx Influenza Type A Antigen Screen - Final 09/21/23 12:04 Nasopharnyx Influenza Type B Antigen Screen - Final Assessment And Plan - Plan Assessment plan Sepsis with elevated lactic acid with hypothermia metabolic encephalopathy likely septic and secondary to electrolyte abnormality versus hypotension versus lactic acidosis-hypothermic/hypotensive/TIGIST/ALI v rhabdo Hypothermia CT of the head FINDINGS: No intracranial hemorrhage, mass, or edema. Midline structures are unremarkable.Normal ventricular caliber for age Lactic acidosis Metabolic acidosis elevated anion gap Trend lactic Cefepime, normal saline at 100 IMPRESSION: No acute intra-abdominal process. Superior endplate compression deformities at T12 and L4, of favored to be chronic, but ultimately of indeterminate age please correlate with any focal pain at those levels. Chest XRAY FINDINGS: The lungs are moderately hyperaerated. The lungs appear clear of acute infiltrate. The heart is normal size IMPRESSION: No acute abnormalities displayed Elevated CK likely secondary from mild rhabdomyolysis CK473, IV fluids Nephrology consult Acute kidney injury unknown baseline Trend kidney function Nephrology consult IV fluids NSTEMI Elevated troponin Trend troponin Cardiology consult, telemetry Echo ordered Transaminitis Trend liver enzymes AST 1816 ALT 669 Hypothyroidism TSH H4.7040 Start p.o. Synthroid Cachectic Severe protein calorie malnutrition Anorexia emaciated Dietitian consult Full code DVT heparin Diet regular Disposition: senior living facility Plan: 1. Patient with altered mental status in the setting of hypothermia and hypotension; patient appears to be very emaciated and cachectic. I would aggressively hydrate the patient. Patient needs CT imaging of the brain to further evaluate her altered mentation. According to the son, she been behaving very bizarrely and she is not eating and she is hiding her food. She has not changed her close and a month. He thinks she may have dementia but he is not really sure why she has been acting so differently. Patient will need further imaging studies to further assess her altered mentation. If patient does indeed have liver injuries she may need ammonia levels checked as well. Patient has acute renal failure but her uremia level does not really explain her altered mentation. Patient does have lactic acidosis as well but that in itself does not really explain the cause of her altered mentation. Patient does need her thyroid levels checked including TSH and free T4. 2. Patient with acute kidney injury; aggressive IV hydration. Continue monitoring renal function closely. 2. Patient with elevated ALT/AST-this could be related to acute liver injury versus rhabdomyolysis. Patient needs CPK levels checked. Patient would also benefit from getting a CT of the abdomen and pelvis to further evaluate her liver injury and also her TIGIST. Patient bilirubin is elevated but normal ammonia level and normal coagulation profile. This would indicate an acute liver injury if her muscle enzymes are normal. 4. High anion gap metabolic acidosis; this is most likely related to her lactic acidosis. Patient has been hypotensive so this may explain her elevated lactic acid level. Patient could have ischemia. Patient would benefit from ABGs. This would help us identify the degree of acidosis. Patient probably has a metabolic alkalosis from dehydration but the degree of acidosis from the hypotension may be masking how severely acidotic or patient currently has at this time. 5. Elevated troponin; this is probably related to hypoperfusion. Type II myocardial infarction most likely. Echocardiogram will be needed. 6. GI and DVT prophylaxis Currently, I would recommend a CT of the head as well as a CT of the abdomen/pelvis w/out contrast to further evaluate patient. Patient needs further lab testing including thyroid studies-TSH, free T4-as well as a CPK level. Ammonia level may also be helpful if this is related to her liver issue. Patient would benefit from aggressive IV hydration and if thyroid studies indicate that patient has severe hypothyroidism then IV Synthroid may be beneficial. If patient does have severe rhabdomyolysis that could be causing acute renal failure. Adrenal insufficiency could also be a concern. At this time, this will be a consultation for the emergency room physician to assist in patient's care. If patient's ALT/AST levels are secondary to rhabdomyolysis and we should be able to admit the patient to the hospital. If they are more related to liver injury then patient needs to be transferred under the care of a sas statistical programmer. Discharge Plan: Home Time Spent Managing PTS Care (In Minutes): 35
[2023-09-22 08:31] LABS: Bilirubin Total 0.6 mg/dL (0.2-1.0)
[2023-09-22] MEDS: MULTIVITAMIN TAB PO SCH (08:50)
[2023-09-22] MEDS: LEVOTHYROXINE SOD 0.075 MG TAB PO SCH (08:50)
[2023-09-22] MEDS: HEPARIN 5000 UNIT/ML 1 ML VIAL SQ SCH ×2 (08:50→16:36)
[2023-09-22] MEDS: ASPIRIN EC 81 MG TAB PO SCH (08:50)
--- NOTE | 2023-09-22 10:30 | P.HP ---
Date of Service: 09/21/23 Date of Admission: 09/21/23 Reason for Admission: Patient was hypothermic/hypotensive/TIGIST/ALI v rhabdo Requesting Physician: Guillermo Webber Chief Complaint: Patient altered mental status/hypothermia/hypotensive/TIGIST/ALI History of Present Illness: Patient is a 73-year-old female who comes from home with confusion. Patient's son found her sitting on the toilet seat. Unknown amount of time asked to how long she had been sitting there. He states that she has been losing weight for the last month. She actually came to the emergency room a month ago with hypoglycemia. She was very confused and he pretty much had to carry her into the emergency room because she was unresponsive. He had a call 4 hours later saying she was ready to be discharged home. He said he pretty much had to carry her out of the emergency room at that time and he was pretty upset and wanted to talk to administration about being her being discharged. He said he washed her at home and she was getting by okay although she was not really eating anything. He will get her food and he would find it hidden in different places. She has not changed her close since she left the emergency room. She has not really been taking care of herself and he has contemplated bring her into the emergency room but he did not know if she would just be discharged. He said when he went to go check on her today there will door was frosted. Her air conditioner was set at 67 and it was 50 degrees outside. When he went into the bathroom he found her sitting group over on the toilet seat. He asked her what she was doing there and he apparently was told she was sleeping. She had urinated on numerous places throughout the house and there was a strong smell of urine everywhere. She had paper towels placed all over the house. He brought her into the emergency room because of her altered mentation and she was very cold to the touch. She was not really responding appropriately. She came into the emergency room and patient was found to have a systolic blood pressure of 70s with a temperature of 90 F. Patient had labs performed which revealed that she had severe lactic acidosis, acute renal failure, elevated ALT and AST which could be indicative of muscle injury or acute liver injury, elevated troponins, anion gap metabolic acidosis, along with severe hypothermia and hypotension. At this time, patient is out on the monitor so I will review the EKG. Patient has numerous issues going on with her and I am not sure if the ALT/AST is elevated because of rhabdo or because of acute liver injury. If patient has acute liver injury she needs to be transferred to higher level of care for gastroenterology. Patient will also need multiple imaging studies which have not been performed. Patient has not had CT of the head/abdomen and pelvis, and patient also needs a CPK level and thyroid studies. Patient will probably need to be transferred for gastroenterology services. Allergies bacitracin [From Neosporin] Allergy (Mild, Verified 03/17/15 13:55) Itching bacitracin zinc [From Neosporin] Allergy (Mild, Verified 03/17/15 13:55) Itching benzalkonium chloride [From Neosporin] Allergy (Mild, Verified 03/17/15 13:55) Itching gramicidin D [From Neosporin] Allergy (Mild, Verified 03/17/15 13:55) Itching meperidine HCl [From Demerol] Allergy (Mild, Verified 03/17/15 13:55) Itching morphine Allergy (Mild, Verified 03/17/15 13:55) Itching neomycin sulfate [From Neosporin] Allergy (Mild, Verified 03/17/15 13:55) Itching polymyxin B [From Neosporin] Allergy (Mild, Verified 03/17/15 13:55) Itching polymyxin B sulfate [From Neosporin] Allergy (Mild, Verified 03/17/15 13:55) Itching shellfish derived Allergy (Verified 03/17/15 13:55) Hives/Rash triclosan Allergy (Unverified 03/17/15 13:55) Unknown almonds Allergy (Uncoded 03/17/15 13:55) Unknown Lysterine Allergy (Uncoded 03/17/15 13:55) Unknown Neomycin Sulfate Allergy (Uncoded 03/17/15 13:55) Unknown Shrimp Allergy (Uncoded 03/17/15 13:55) Unknown Wheat/glutens Allergy (Uncoded 03/17/15 13:55) Unknown Home Medications: Cetirizine HCl [Zyrtec] 10 mg PO BID 06/08/14 Levothyroxine Sodium [Synthroid] 75 mcg PO DAILY 06/08/14 Tramadol HCl/Acetaminophen [Ultracet Tablet] 1 each PO Q4HP PRN #30 tablet 06/14/14 ondansetron HCL [Zofran] 4 mg PO Q6H PRN #15 tablet 06/14/14 Aspirin [Aspirin EC] 81 mg PO DAILY 03/17/15 Biotin 10 mg PO BID 03/17/15 Diphenhydramine [Benadryl Tab/Cap] 25 mg PO Q6HP PRN 03/17/15 Multivitamin [Multivitamins] 1 each PO DAILY 03/17/15 Naproxen Sodium [Aleve] 220 mg PO DAILYPRN PRN 03/17/15 - Past Medical/Surgical History Diabetic: No -: Hypothyroidism -: Eczema -: Bipolar disorder -: hysterectomy -: tonsillectomy -: - Family History Father Family History: Reviewed- Non-Contributory - Social History Smoking Status: Unknown if ever smoked Alcohol use: No CD- Drugs: No Caffeine use: Yes Review of Systems 10-point ROS is otherwise unremarkable Physical Examination Reviewed General: Oriented x1, Cachectic, Confused, Other (Emaciated) HEENT: Atraumatic, Normocephalic, Other (Temporal wasting) Neck: Supple, 2+ carotid pulse no bruit, JVD not distended, No Thyromegaly Respiratory: Clear to auscultation bilaterally, Normal air movement Cardiovascular: Regular rate/rhythm, Normal S1 S2, Systolic murmur Gastrointestinal: Normal bowel sounds, Soft and benign, Non-distended, W/out hepatomegaly, W/out splenomegaly Musculoskeletal: No clubbing, No swelling Integumentary: Other (blanching) Neurological: Other (Altered mental status; generalized weakness;), Abnormal gait, Abnormal speech, Abnormal strength, Abnormal tone, Abnormal sensation, Abnormal cranial nerve function, Abnormal affect Laboratory Data (last 24 hrs) 09/21/23 09/21/23 09/21/23 12:38 11:59 11:54 WBC 9.40 Hgb 13.9 Hct 42.3 Plt Count 234 PT 12.0 INR 1.09 Sodium 142 Potassium 3.6 BUN 41 H Creatinine 2.50 H Glucose 234 H Magnesium 2.2 Total Bilirubin 1.1 H AST 1513 H ALT 671 H Alkaline Phosphatase 84 - Problems (1) Altered mental status Current Visit: Yes Status: Acute (2) Hypothermia Current Visit: Yes Status: Acute (3) Hypotension Current Visit: Yes Status: Acute (4) Acute kidney injury Current Visit: Yes Status: Acute (5) Elevated troponin Current Visit: Yes Status: Acute (6) Elevated ALT measurement Current Visit: Yes Status: Acute (7) Elevated AST (SGOT) Current Visit: Yes Status: Acute (8) Lactic acidosis Current Visit: Yes Status: Acute (9) High anion gap metabolic acidosis Current Visit: Yes Status: Acute (10) Non-STEMI (non-ST elevated myocardial infarction) Current Visit: Yes Status: Acute Conclusions/ Impression: Plan: 1. Patient with altered mental status in the setting of hypothermia and hypotension; patient appears to be very emaciated and cachectic. I would aggressively hydrate the patient. Patient needs CT imaging of the brain to further evaluate her altered mentation. According to the son, she been behaving very bizarrely and she is not eating and she is hiding her food. She has not changed her close and a month. He thinks she may have dementia but he is not really sure why she has been acting so differently. Patient will need further imaging studies to further assess her altered mentation. If patient does indeed have liver injuries she may need ammonia levels checked as well. Patient has acute renal failure but her uremia level does not really explain her altered mentation. Patient does have lactic acidosis as well but that in itself does not really explain the cause of her altered mentation. Patient does need her thyroid levels checked including TSH and free T4. 2. Patient with acute kidney injury; aggressive IV hydration. Continue monitoring renal function closely. 2. Patient with elevated ALT/AST-this could be related to acute liver injury versus rhabdomyolysis. Patient needs CPK levels checked. Patient would also benefit from getting a CT of the abdomen and pelvis to further evaluate her liver injury and also her TIGIST. Patient bilirubin is elevated but normal ammonia level and normal coagulation profile. This would indicate an acute liver injury if her muscle enzymes are normal. 4. High anion gap metabolic acidosis; this is most likely related to her lactic acidosis. Patient has been hypotensive so this may explain her elevated lactic acid level. Patient could have ischemia. Patient would benefit from ABGs. This would help us identify the degree of acidosis. Patient probably has a metabolic alkalosis from dehydration but the degree of acidosis from the hypotension may be masking how severely acidotic or patient currently has at this time. 5. Elevated troponin; this is probably related to hypoperfusion. Type II myocardial infarction most likely. Echocardiogram will be needed. 6. GI and DVT prophylaxis Currently, I would recommend a CT of the head as well as a CT of the abdomen/pel vis w/out contrast to further evaluate patient. Patient needs further lab testing including thyroid studies-TSH, free T4-as well as a CPK level. Ammonia level may also be helpful if this is related to her liver issue. Patient would benefit from aggressive IV hydration and if thyroid studies indicate that patient has severe hypothyroidism then IV Synthroid may be beneficial. If patient does have severe rhabdomyolysis that could be causing acute renal failure. Adrenal insufficiency could also be a concern. At this time, this will be a consultation for the emergency room physician to assist in patient's care. If patient's ALT/AST levels are secondary to rhabdomyolysis and we should be able to admit the patient to the hospital. If they are more related to liver injury then patient needs to be transferred under the care of a head control clerk. Critical Care: Yes Time Spent Managing Pts care (In Minutes): 45
--- NOTE | 2023-09-22 13:25 | EKG ---
Test Date: 2023-09-21 Test Time: 12:09:29 Lead Software Engineer: SIVA MEASUREMENT RESULTS: Intervals: Rate: 76 MT: 156 QRSD: 94 QT: 430 QTc: 483 Tiona: P: 98 MT: 156 QRS: 72 T: 78 INTERPRETIVE STATEMENTS: Normal sinus rhythm Right atrial enlargement Voltage criteria for left ventricular hypertrophy Inferior infarct, age undetermined Abnormal ECG Compared to ECG 08/30/2023 13:33:38 Atrial abnormality now present Left ventricular hypertrophy now present Myocardial infarct finding now present Electronically Signed On 09-22-23 13:22:48 AQUATIC INSTRUCTOR by Ildefonso Knox
--- NOTE | 2023-09-22 15:43 | P.CNS ---
Date of Consult: 09/22/23 Reason for Consult: renal failure Requesting Physician: Troy Faith Chief Complaint: protein malnutrion, hypotenison, lactic acidosis History of Present Illness: 73F w/ recent episode of hypoglycemia, who p/w confusion, hypotension & hypothermia, admitted for further evaluation & mngt. Her lactic acid was elevated and she was empirically treated with antibiotics for possible sepsis. She received IV fluids and her blood pressure stabilized. She is referred to nephrology for TIGIST. Serum creatinine 2.5 on admission, today at 2.7. Her baseline serum creatinine is 1.3-1.4 as of August 2023. Urine studies are pending. Allergies bacitracin [From Neosporin] Allergy (Mild, Verified 03/17/15 13:55) Itching bacitracin zinc [From Neosporin] Allergy (Mild, Verified 03/17/15 13:55) Itching benzalkonium chloride [From Neosporin] Allergy (Mild, Verified 03/17/15 13:55) Itching gramicidin D [From Neosporin] Allergy (Mild, Verified 03/17/15 13:55) Itching meperidine HCl [From Demerol] Allergy (Mild, Verified 03/17/15 13:55) Itching morphine Allergy (Mild, Verified 03/17/15 13:55) Itching neomycin sulfate [From Neosporin] Allergy (Mild, Verified 03/17/15 13:55) Itching polymyxin B [From Neosporin] Allergy (Mild, Verified 03/17/15 13:55) Itching polymyxin B sulfate [From Neosporin] Allergy (Mild, Verified 03/17/15 13:55) Itching shellfish derived Allergy (Verified 03/17/15 13:55) Hives/Rash triclosan Allergy (Unverified 03/17/15 13:55) Unknown almonds Allergy (Uncoded 03/17/15 13:55) Unknown Lysterine Allergy (Uncoded 03/17/15 13:55) Unknown Neomycin Sulfate Allergy (Uncoded 03/17/15 13:55) Unknown Shrimp Allergy (Uncoded 03/17/15 13:55) Unknown Wheat/glutens Allergy (Uncoded 03/17/15 13:55) Unknown Home Medications: Cetirizine HCl [Zyrtec] 10 mg PO BID 06/08/14 Levothyroxine Sodium [Synthroid] 75 mcg PO DAILY 06/08/14 Tramadol HCl/Acetaminophen [Ultracet Tablet] 1 each PO Q4HP PRN #30 tablet 06/14/14 ondansetron HCL [Zofran] 4 mg PO Q6H PRN #15 tablet 06/14/14 Aspirin [Aspirin EC] 81 mg PO DAILY 03/17/15 Biotin 10 mg PO BID 03/17/15 Diphenhydramine [Benadryl Tab/Cap] 25 mg PO Q6HP PRN 03/17/15 Multivitamin [Multivitamins] 1 each PO DAILY 03/17/15 Naproxen Sodium [Aleve] 220 mg PO DAILYPRN PRN 03/17/15 - Past Medical/Surgical History Diabetic: No -: Hypothyroidism -: Eczema -: Bipolar disorder -: hysterectomy -: tonsillectomy -: - Family History Father History Unknown: Yes Family History: Reviewed- Non-Contributory - Social History Smoking Status: Unknown if ever smoked Alcohol use: No CD- Drugs: No Caffeine use: No Place of Residence: Home Review of Systems is unable to be obtained (d/t AMS) Physical Examination Temp Pulse Resp BP Pulse Ox 98.2 F 101 H 16 172/80 H 97 09/22/23 12:38 09/22/23 12:38 09/22/23 12:38 09/22/23 12:38 09/22/23 12:38 General: Other (Chronically ill-appearing) HEENT: Atraumatic, Normocephalic Neck: Supple Respiratory: Other (symmetric chest expansion) Cardiovascular: No rubs, No murmurs Gastrointestinal: Soft and benign, No rebound, No guarding Musculoskeletal: No clubbing Integumentary: No warmth Neurological: Normal tone Urinary: Other (no bladder distention) External genitalia: Deferred Rectal: Deferred Laboratory Data (last 24 hrs) 09/21/23 15:07 Total Bilirubin 0.9 AST 1816 H ALT 669 H Alkaline Phosphatase 69 Conclusions/Impression: # TIGIST likely 2/2 prerenal state +/- ATN from prolonged prerenal state & hypotension Serum creatinine 2.5 on admission, today at 2.7 Baseline serum creatinine is 1.3-1.4 as of August 2023 CPK not sig elevated, no rhabdo F/u urine studies, BNP, iPTH MAP > 65 Encourage liberal po fluid intake at least 1.5-2.0 L/day # Hypotension 2/2 volume depletion Resolved w/ IVF [place] po fluid intake # AMS Per other services # Lactic acidosis Resolving Empiric abx F/u BCx # NSTEMI Per Cardiology # Transaminitis She denies etoh use Monitor LFT # Hypothyroidism Synthroid # Protein-calorie malnutrition Per other services
[2023-09-22] MEDS: ENSURE ENLIVE 237 ML CAN PO SCH (20:17)
[2023-09-23] MEDS: NA CHLORIDE 0.9% 1,000 ML IV SCH ×2 (00:48→12:28)
[2023-09-23] MEDS: HEPARIN 5000 UNIT/ML 1 ML VIAL SQ SCH ×3 (00:51→12:22)
[2023-09-23] MEDS: LEVOTHYROXINE SOD 0.075 MG TAB PO SCH ×2 (06:10→06:17)
[2023-09-23] MEDS: ENSURE ENLIVE 237 ML CAN PO SCH ×3 (08:52→19:25)
[2023-09-23] MEDS: MULTIVITAMIN TAB PO SCH ×2 (08:52→08:55)
[2023-09-23] MEDS: ASPIRIN EC 81 MG TAB PO SCH ×2 (08:52→08:54)
--- NOTE | 2023-09-23 10:02 | P.PN ---
Subjective Date of Service: 09/23/23 Chief Complaint: protein malnutrion, hypotenison, lactic acidosis AOX1 confused, cachectic, moderate generalized weakness Physical Examination Reviewed General: Oriented x1, Cachectic, Confused, Other (Emaciated) HEENT: Atraumatic, Normocephalic, Other (Temporal wasting) Neck: Supple, 2+ carotid pulse no bruit, JVD not distended, No Thyromegaly Respiratory: Clear to auscultation bilaterally, Normal air movement Cardiovascular: Regular rate/rhythm, Normal S1 S2, Systolic murmur Gastrointestinal: Normal bowel sounds, Soft and benign, Non-distended, Musculoskeletal: No clubbing, No swelling Integumentary: Other (blanching) Neurological: Other (Altered mental status; generalized weakness;), Abnormal gait, Abnormal speech, Abnormal strength, Abnormal tone, Abnormal sensation, Abnormal cranial nerve function, Abnormal affect Review of Systems per HPI Physical Examination - Vital Signs Temperature: 97.4 F Blood Pressure: 125/69 Pulse: 66 Respirations: 17 Pulse Ox (%): 98 - Studies Microbiology Data (last 24 hrs): 09/21/23 12:00 Blood - Blood Anaerobic Blood Culture - Final Assessment And Plan - Plan Assessment plan Sepsis with elevated lactic acid with hypothermia metabolic encephalopathy likely septic and secondary to electrolyte abnormality versus hypotension versus lactic acidosis-hypothermic/hypotensive/TIGIST/ALI v rhabdo Hypothermia CT of the head FINDINGS: No intracranial hemorrhage, mass, or edema. Midline structures are unremarkable.Normal ventricular caliber for age Lactic acidosis Metabolic acidosis elevated anion gap Leukocytosis wbc 9.40-12.00, left shift, empiric ceftriaxone Trend lactic Cefepime, normal saline at 100 IMPRESSION: No acute intra-abdominal process. Superior endplate compression deformities at T12 and L4, of favored to be chronic, but ultimately of indeterminate age please correlate with any focal pain at those levels. Chest XRAY FINDINGS: The lungs are moderately hyperaerated. The lungs appear clear of acute infiltrate. The heart is normal size IMPRESSION: No acute abnormalities displayed flu AB negative BC no growth UA ordered Elevated CK likely secondary from mild rhabdomyolysis CK473, IV fluids Nephrology consult Acute kidney injury unknown baseline improving BUN 41/2.40-42/2.21 Trend kidney function Nephrology consult IV fluids NSTEMI Elevated troponin Trend troponin Cardiology consult, telemetry Echo ordered Transaminitis Trend liver enzymes AST 2585-5943 ALT 669-527 Hypothyroidism TSH H4.7040 Start p.o. Synthroid Cachectic Severe protein calorie malnutrition Anorexia emaciated Dietitian consult Full code DVT heparin Diet regular Disposition: assisted facility Plan: 1. Patient with altered mental status in the setting of hypothermia and hypotension; patient appears to be very emaciated and cachectic. I would aggressively hydrate the patient. Patient needs CT imaging of the brain to further evaluate her altered mentation. According to the son, she been behaving very bizarrely and she is not eating and she is hiding her food. She has not changed her close and a month. He thinks she may have dementia but he is not really sure why she has been acting so differently. Patient will need further imaging studies to further assess her altered mentation. If patient does indeed have liver injuries she may need ammonia levels checked as well. Patient has acute renal failure but her uremia level does not really explain her altered mentation. Patient does have lactic acidosis as well but that in itself does not really explain the cause of her altered mentation. Patient does need her thyroid levels checked including TSH and free T4. 2. Patient with acute kidney injury; aggressive IV hydration. Continue monitoring renal function closely. 2. Patient with elevated ALT/AST-this could be related to acute liver injury versus rhabdomyolysis. Patient needs CPK levels checked. Patient would also benefit from getting a CT of the abdomen and pelvis to further evaluate her liver injury and also her TIGIST. Patient bilirubin is elevated but normal ammonia level and normal coagulation profile. This would indicate an acute liver injury if her muscle enzymes are normal. 4. High anion gap metabolic acidosis; this is most likely related to her lactic acidosis. Patient has been hypotensive so this may explain her elevated lactic acid level. Patient could have ischemia. Patient would benefit from ABGs. This would help us identify the degree of acidosis. Patient probably has a metabolic alkalosis from dehydration but the degree of acidosis from the hypotension may be masking how severely acidotic or patient currently has at this time. 5. Elevated troponin; this is probably related to hypoperfusion. Type II myocardial infarction most likely. Echocardiogram will be needed. 6. GI and DVT prophylaxis Currently, I would recommend a CT of the head as well as a CT of the abdomen/pe lvis w/out contrast to further evaluate patient. Patient needs further lab testing including thyroid studies-TSH, free T4-as well as a CPK level. Ammonia level may also be helpful if this is related to her liver issue. Patient would benefit from aggressive IV hydration and if thyroid studies indicate that patient has severe hypothyroidism then IV Synthroid may be beneficial. If patient does have severe rhabdomyolysis that could be causing acute renal failure. Adrenal insufficiency could also be a concern. At this time, this will be a consultation for the emergency room physician to assist in patient's care. If patient's ALT/AST levels are secondary to rhabdomyolysis and we should be able to admit the patient to the hospital. If they are more related to liver injury then patient needs to be transferred under the care of a expediter clerk. Discharge Plan: Retirement - Code Status/Comfort Care Code Status: Full Code Critical Care: No Time Spent Managing PTS Care (In Minutes): 35
[2023-09-23] MEDS ORDERED: HALOPERIDOL LACT 5 MG/ML INJ IV PRN (10:24)
[2023-09-23] MEDS ORDERED: NA CHLORIDE 0.9% 1,000 ML IV SCH (11:00)
--- NOTE | 2023-09-23 12:24 | P.PN ---
Subjective Date of Service: 09/23/23 Chief Complaint: protein malnutrion, hypotenison, lactic acidosis 73F w/ recent episode of hypoglycemia, who p/w confusion, hypotension & hypothermia, admitted for further evaluation & mngt. Her lactic acid was elevated and she was empirically treated with antibiotics for possible sepsis. She received IV fluids and her blood pressure stabilized. She is referred to nephrology for TIGIST. Serum creatinine 2.5 on admission, today at 2.7. Her baseline serum creatinine is 1.3-1.4 as of August 2023. Urine studies are pending. Today pt refused labs and to talks labs from yesterday showed improved Cr Cont IVF Physical exam General: looks chronically ill , thin HEENT: Atraumatic, Normocephalic Neck: Supple, no elevated JVD Respiratory: CTAB Cardiovascular: No rubs, No murmurs Gastrointestinal: Soft and benign, Non-distended Musculoskeletal: No edema # TIGIST due to dehydration Cr improving, today refusing labs Baseline serum creatinine is 1.3-1.4 as of August 2023 # Hypotension 2/2 volume depletion Resolved w/ IVF Rush po fluid intake # AMS Per other services #Bipolar disorder? refusing meds # Lactic acidosis due to hypovolemic shock Resolving Empiric abx F/u BCx # NSTEMI Per Cardiology # Transaminitis She denies etoh use Monitor LFT # Hypothyroidism Synthroid # Protein-calorie malnutrition Per other services Physical Examination - Vital Signs Temperature: 97.4 F Blood Pressure: 125/69 Pulse: 66 Respirations: 17 Pulse Ox (%): 98 - Studies Microbiology Data (last 24 hrs): 09/21/23 12:00 Blood - Blood Anaerobic Blood Culture - Final
[2023-09-23] MEDS: CEFTRIAXONE 1,000 MG in NA CHLORIDE 0.9% 50 ML IVPB SCH (12:28)
[2023-09-23] MEDS: RISPERIDONE 1 MG TABLET PO SCH (21:00)
[2023-09-24] MEDS: HEPARIN 5000 UNIT/ML 1 ML VIAL SQ SCH ×4 (00:55→23:31)
[2023-09-24] MEDS: NA CHLORIDE 0.9% 1,000 ML IV SCH ×2 (05:00→08:30)
[2023-09-24] MEDS: HYDRALAZINE HCL 20 MG/ML VIAL IV PRN ×2 (05:31→23:46)
[2023-09-24] MEDS: LEVOTHYROXINE SOD 0.075 MG TAB PO SCH (06:30)
[2023-09-24] MEDS: ENSURE ENLIVE 237 ML CAN PO SCH ×3 (08:15→20:31)
[2023-09-24] MEDS: ASPIRIN EC 81 MG TAB PO SCH (08:15)
[2023-09-24] MEDS: MULTIVITAMIN TAB PO SCH (08:15)
[2023-09-24] MEDS: CEFTRIAXONE 1,000 MG in NA CHLORIDE 0.9% 50 ML IVPB SCH (08:30)
--- NOTE | 2023-09-24 09:24 | P.PN ---
Subjective Date of Service: 09/24/23 <Nick Faithelvia Tomer - Last Filed: 09/24/23 10:18> Date of Service: 09/24/23 Chief Complaint: protein malnutrion, hypotenison, lactic acidosis More alert today, alert and oriented to person place, avoided eye contact, mistrustful regarding discharge plans cachectic, moderate generalized weakness Physical Examination Reviewed General: Oriented x1, Cachectic, Confused, Other (Emaciated) HEENT: Atraumatic, Normocephalic, Other (Temporal wasting) Neck: Supple, 2+ carotid pulse no bruit, JVD not distended, No Thyromegaly Respiratory: Clear to auscultation bilaterally, Normal air movement Cardiovascular: Regular rate/rhythm, Normal S1 S2, Systolic murmur Gastrointestinal: Normal bowel sounds, Soft and benign, Non-distended, Musculoskeletal: No clubbing, No swelling Integumentary: Other (blanching) Neurological: Other (Altered mental status; generalized weakness;), Abnormal gait, Abnormal speech, Abnormal strength, Abnormal tone, Abnormal sensation, Abnormal cranial nerve function, Abnormal affect <Venessa Andino - Last Filed: 09/24/23 15:28> Review of Systems per HPI <SinaVenessa - Last Filed: 09/24/23 15:28> Physical Examination - Vital Signs Temperature: 98.6 F Blood Pressure: 133/60 Pulse: 74 Respirations: 16 Pulse Ox (%): 96 <SinaVenessa - Last Filed: 09/24/23 15:28> Assessment And Plan - Current Problems (Diagnosis) (1) Altered mental status Current Visit: Yes Status: Acute (2) Hypothermia Current Visit: Yes Status: Acute (3) Hypotension Current Visit: Yes Status: Acute (4) Acute kidney injury Current Visit: Yes Status: Acute (5) Elevated troponin Current Visit: Yes Status: Acute (6) Elevated ALT measurement Current Visit: Yes Status: Acute (7) Elevated AST (SGOT) Current Visit: Yes Status: Acute (8) Lactic acidosis Current Visit: Yes Status: Acute (9) High anion gap metabolic acidosis Current Visit: Yes Status: Acute (10) Non-STEMI (non-ST elevated myocardial infarction) Current Visit: Yes Status: Acute <Arsalan Faith - Last Filed: 09/24/23 10:18> - Plan Assessment plan Sepsis with elevated lactic acid with hypothermia improving metabolic encephalopathy likely septic and secondary to electrolyte abnormality versus hypotension versus lactic acidosis improving -hypothermic/hypotensive/TIGIST/ALI v rhabdo CT of the head FINDINGS: No intracranial hemorrhage, mass, or edema. Midline structures are unremarkable.Normal ventricular caliber for age Alert oriented time person and place today Hypothermia improving Lactic acidosis improving Metabolic acidosis elevated anion gap Leukocytosis improving wbc 9.40-12.00, left shift, empiric ceftriaxone Trend lactic Cefepime, normal saline at 100 IMPRESSION: No acute intra-abdominal process. Superior endplate compression deformities at T12 and L4, of favored to be chronic, but ultimately of indeterminate age please correlate with any focal pain at those levels. Chest XRAY FINDINGS: The lungs are moderately hyperaerated. The lungs appear clear of acute infiltrate. The heart is normal size IMPRESSION: No acute abnormalities displayed flu AB negative BC no growth UA ordered Elevated CK likely secondary from mild rhabdomyolysis CK473, IV fluids Nephrology consult Acute kidney injury unknown baseline improving BUN 41/2.40-42/2.21 Trend kidney function Nephrology consult IV fluids NSTEMI Elevated troponin Trend troponin Cardiology consult, telemetry Echo ordered Transaminitis Trend liver enzymes AST 9075-9766- ALT 669-527 Hypothyroidism TSH H4.7040 Start p.o. Synthroid Cachectic Severe protein calorie malnutrition Anorexia emaciated Dietitian consult History bipolar Avoidant eye contact, refusing meds Refusing to discuss discharge planning Resides at home unsafe to go home independently, she is malnourished, refuses to eat Full code DVT heparin Diet regular Disposition: half-way facility Plan: 1. Patient with altered mental status in the setting of hypothermia and hypotension; patient appears to be very emaciated and cachectic. I would aggressively hydrate the patient. Patient needs CT imaging of the brain to further evaluate her altered mentation. According to the son, she been behaving very bizarrely and she is not eating and she is hiding her food. She has not changed her close and a month. He thinks she may have dementia but he is not really sure why she has been acting so differently. Patient will need further imaging studies to further assess her altered mentation. If patient does indeed have liver injuries she may need ammonia levels checked as well. Patient has acute renal failure but her uremia level does not really explain her altered mentation. Patient does have lactic acidosis as well but that in itself does not really explain the cause of her altered mentation. Patient does need her thyroid levels checked including TSH and free T4. 2. Patient with acute kidney injury; aggressive IV hydration. Continue lexie toring renal function closely. 2. Patient with elevated ALT/AST-this could be related to acute liver injury versus rhabdomyolysis. Patient needs CPK levels checked. Patient would also benefit from getting a CT of the abdomen and pelvis to further evaluate her liver injury and also her TIGIST. Patient bilirubin is elevated but normal ammonia level and normal coagulation profile. This would indicate an acute liver injury if her muscle enzymes are normal. 4. High anion gap metabolic acidosis; this is most likely related to her lactic acidosis. Patient has been hypotensive so this may explain her elevated lactic acid level. Patient could have ischemia. Patient would benefit from ABGs. This would help us identify the degree of acidosis. Patient probably has a metabolic alkalosis from dehydration but the degree of acidosis from the hypotension may be masking how severely acidotic or patient currently has at this time. 5. Elevated troponin; this is probably related to hypoperfusion. Type II myocardial infarction most likely. Echocardiogram will be needed. 6. GI and DVT prophylaxis Currently, I would recommend a CT of the head as well as a CT of the abdomen/pelvis w/out contrast to further evaluate patient. Patient needs further lab testing including thyroid studies-TSH, free T4-as well as a CPK level. Ammonia level may also be helpful if this is related to her liver issue. Patient would benefit from aggressive IV hydration and if thyroid studies indicate that patient has severe hypothyroidism then IV Synthroid may be beneficial. If patient does have severe rhabdomyolysis that could be causing acute renal failure. Adrenal insufficiency could also be a concern. At this time, this will be a consultation for the emergency room physician to assist in patient's care. If patient's ALT/AST levels are secondary to rhabdomyolysis and we should be able to admit the patient to the hospital. If they are more related to liver injury then patient needs to be transferred under the care of a prehemmer. Discharge Plan: Correction - Code Status/Comfort Care Code Status: Full Code Critical Care: No Time Spent Managing PTS Care (In Minutes): 35 <Venessa Andino - Last Filed: 09/24/23 15:28>
--- NOTE | 2023-09-24 12:38 | P.PN ---
Subjective Date of Service: 09/24/23 Chief Complaint: protein malnutrion, hypotenison, lactic acidosis 73F w/ recent episode of hypoglycemia, who p/w confusion, hypotension & hypothermia, admitted for further evaluation & mngt. Her lactic acid was elevated and she was empirically treated with antibiotics for possible sepsis. She received IV fluids and her blood pressure stabilized. She is referred to nephrology for TIGIST. Serum creatinine 2.5 on admission, today at 2.7. Her baseline serum creatinine is 1.3-1.4 as of August 2023. Urine studies are pending. Today no overnight events Cont to refuse labs Cont IVF Physical exam General: looks chronically ill , thin HEENT: Atraumatic, Normocephalic Neck: Supple, no elevated JVD Respiratory: CTAB Cardiovascular: No rubs, No murmurs Gastrointestinal: Soft and benign, Non-distended Musculoskeletal: No edema # TIGIST due to dehydration Cr improving, today refusing labs Baseline serum creatinine is 1.3-1.4 as of August 2023 avoid NSAID and contrast renal dose meds # Hypotension 2/2 volume depletion Resolved w/ IVF [place] po fluid intake # AMS improving Per other services #Bipolar disorder? refusing meds # Lactic acidosis due to hypovolemic shock Resolving Empiric abx F/u BCx # NSTEMI Per Cardiology # Transaminitis She denies etoh use Monitor LFT # Hypothyroidism Synthroid # Protein-calorie malnutrition Per other services Physical Examination - Vital Signs Temperature: 98.9 F Blood Pressure: 136/70 Pulse: 65 Respirations: 16 Pulse Ox (%): 97
[2023-09-24] MEDS: D5 0.45 NS 1,000 ML IV SCH (19:24)
[2023-09-24] MEDS: RISPERIDONE 1 MG TABLET PO SCH (20:31)
[2023-09-25 03:21] LABS: Absolute Lymphocytes (CBC) 0.4 K/uL (0.7-4.9); Hematocrit 33.1 % (36.0-45.0); Lymphocytes % 5.2 % (15.3-44.8); MCV 85.9 fL (80-100); MPV 8.5 fL (7.6-11.3); Platelets 164 thou/uL (152-406); RBC Red Blood Cell Count 3.85 M/uL (3.86-4.86)
[2023-09-25 04:13] LABS: Albumin 2.8 g/dL (3.4-5.0); Bilirubin Total 0.6 mg/dL (0.2-1.0); Magnesium 1.2 mg/dL (1.6-2.4); Protein, Total 5.7 g/dL (6.4-8.2)
[2023-09-25] MEDS: LEVOTHYROXINE SOD 0.075 MG TAB PO SCH (04:28)
[2023-09-25 04:34] LABS: Potassium 2.1 mEq/L (3.5-5.1)
[2023-09-25] MEDS ORDERED: Magnesium Sulfate 2gm IVPB 2 G/50 ML BAG IV ONE (05:04)
[2023-09-25 05:07] LABS: Ferritin 343.4 ng/mL (8-388)
[2023-09-25 05:09] LABS: Phosphorus 0.7 mg/dL (2.5-4.9)
[2023-09-25] MEDS: KCL 20 MEQ/100 mL IVPB 20 MEQ/100 ML BAG IV SCH ×3 (05:17→10:00)
[2023-09-25] MEDS: D5 0.45 NS 1,000 ML IV SCH ×2 (05:17→16:00)
[2023-09-25 07:31] LABS: Blood Morphology Comment NOT SEEN (NOT SEEN); Platelet Estimate ADEQ
[2023-09-25] MEDS ORDERED: POTASSIUM PHOS 30 MM in NA CHLORIDE 0.9% 500 ML IV ONE (08:00)
[2023-09-25] MEDS: ENSURE ENLIVE 237 ML CAN PO SCH ×3 (09:00→20:24)
[2023-09-25] MEDS: HEPARIN 5000 UNIT/ML 1 ML VIAL SQ SCH ×2 (09:49→17:00)
[2023-09-25] MEDS: ASPIRIN EC 81 MG TAB PO SCH (09:49)
[2023-09-25] MEDS: MULTIVITAMIN TAB PO SCH (09:49)
[2023-09-25] MEDS: CEFTRIAXONE 1,000 MG in NA CHLORIDE 0.9% 50 ML IVPB SCH (09:49)
--- NOTE | 2023-09-25 12:39 | P.PN ---
Subjective Date of Service: 09/25/23 Chief Complaint: protein malnutrion, hypotenison, lactic acidosis Subjective: Improving Patient complaining of generalized weakness. Denies any signs and symptoms of distress. Review of Systems General: Weakness Eyes: Unremarkable ENT: Unremarkable Respiratory: Unremarkable Cardiovascular: Unremarkable Gastrointestinal: Unremarkable Genitourinary: Unremarkable Musculoskeletal: Unremarkable Integumentary: Unremarkable Lymphatics: Unremarkable Physical Examination - Vital Signs Temperature: 98.1 F Blood Pressure: 129/65 Pulse: 72 Respirations: 16 Pulse Ox (%): 97 - Physical Exam General: Alert, In no apparent distress, Oriented x3, Cooperative HEENT: Atraumatic, PERRLA, EOMI Neck: Supple, JVD not distended Respiratory: Clear to auscultation bilaterally, Normal air movement Cardiovascular: No edema, Regular rate/rhythm, Normal S1 S2 Capillary refill: <2 Seconds Gastrointestinal: Normal bowel sounds, No tenderness Musculoskeletal: No clubbing, No tenderness Integumentary: No rashes Neurological: Normal speech, Normal tone, Normal affect Lymphatics: No axilla or inguinal lymphadenopathy Assessment And Plan - Plan Interval history. 09/25/2023. Patient seen at bedside. Patient has not been able to get up. Physical therapy consulted for evaluation. Patient noted with significant electrolyte abnormality. Will replete electrolytes as needed. Bath Tester on board. Blood pressure stable. Continue supportive care. Sepsis with elevated lactic acid with hypothermia improving metabolic encephalopathy likely septic and secondary to electrolyte abnormality versus hypotension versus lactic acidosis improving -hypothermic/hypotensive/TIGIST/ALI v rhabdo CT of the head FINDINGS: No intracranial hemorrhage, mass, or edema. Midline structures are unremarkable.Normal ventricular caliber for age Alert oriented time person and place today Hypothermia improving Lactic acidosis improving Metabolic acidosis elevated anion gap Leukocytosis improving wbc 9.40-12.00, left shift, empiric ceftriaxone Trend lactic Cefepime, normal saline at 100 IMPRESSION: No acute intra-abdominal process. Superior endplate compression deformities at T12 and L4, of favored to be chronic, but ultimately of indetermi nina age please correlate with any focal pain at those levels. Chest XRAY FINDINGS: The lungs are moderately hyperaerated. The lungs appear clear of acute infiltrate. The heart is normal size IMPRESSION: No acute abnormalities displayed flu AB negative BC no growth UA ordered Elevated CK likely secondary from mild rhabdomyolysis CK473, IV fluids Nephrology consult Acute kidney injury unknown baseline improving BUN 41/2.40-42/2.21 Trend kidney function Nephrology consult IV fluids NSTEMI Elevated troponin Trend troponin Cardiology consult, telemetry Echo ordered Transaminitis Trend liver enzymes AST 2648-6567- ALT 669-527 Hypothyroidism TSH H4.7040 Start p.o. Synthroid Cachectic Severe protein calorie malnutrition Anorexia emaciated Dietitian consult History bipolar Avoidant eye contact, refusing meds Refusing to discuss discharge planning Resides at home unsafe to go home independently, she is malnourished, refuses to eat Full code DVT heparin Discharge Plan: Home Plan to discharge in: Greater than 2 days - Code Status/Comfort Care Code Status Assessed: Yes Physician Review: Patient Assessed, Agree with Above Assessment and Plan Critical Care: No
--- NOTE | 2023-09-25 13:29 | ECHO ---
HEIGHT: 5 ft 6 in WEIGHT: 106 lb 0 oz DATE OF STUDY: 09/25/[address]: Arsalan Faith MD 2-DIMENSIONAL: YES M.MODE: YES DOPPLER: YES COLOR FLOW: YES TDS: PORTABLE: YES DEFINITY: BUBBLE STUDY: DIAGNOSIS: NON ST ELEVATION MYOCARDIAL INFARCTION CARDIAC HISTORY: CATHERIZATION: SURGERY: PROSTHETIC VALVE: PACEMAKER: MEASUREMENTS (cm) DIASTOLIC (NORMALS) SYSTOLIC (NORMALS) IVSd 0.8 (0.6-1.2) LA Diam 3.5 (1.9-4.0) LVEF 70% LVIDd 4.8 (3.5-5.7) LVIDs 2.9 (2.0-3.5) %FS 40% LVPWd 0.9 (0.6-1.2) Ao Diam 3.2 (2.0-3.7) 2 DIMENSIONAL ASSESSMENT: RIGHT ATRIUM: NORMAL LEFT ATRIUM: NORMAL RIGHT VENTRICLE: NORMAL LEFT VENTRICLE: NORMAL TRICUSPID VALVE: MILD TRICUSPID REGURGITATION MITRAL VALVE: MILD MITRAL REGURGITATION PULMONIC VALVE: NORMAL AORTIC VALVE: MILD AORTIC INSUFFICIENCY PERICARDIAL EFFUSION: TRACE AORTIC ROOT: NORMAL LEFT VENTRICULAR WALL MOTION: NORMAL DOPPLER/COLOR FLOW: SEE BELOW COMMENTS: 1. NORMAL LEFT VENTRICULAR EJECTION FRACTION 60-65% WITH NORMAL WALL MOTION 2. MILD MITRAL REGURGITATION, TRICUSPID REGURGITATION, AORTIC INSUFFICIENCY 3. GRADE I DIASTOLIC DYSFUNCTION TECHNOLOGIST: CHRISTIANO STEEN
[2023-09-25] MEDS ORDERED: MAGNESIUM CHLORIDE 64 MG TAB PO ONE (13:36)
[2023-09-25] MEDS ORDERED: POTASS/SODIUM PHOSPHATE 1 PKT POWD.PACK PO ONE (13:37)
[2023-09-25] MEDS: MAGNESIUM CHLORIDE 64 MG TAB PO SCH ×2 (14:00→20:28)
[2023-09-25] MEDS: POTASS/SODIUM PHOSPHATE 1 PKT POWD.PACK PO SCH ×2 (14:00→20:23)
[2023-09-25] MEDS: JUVEN PACKET PO SCH (20:24)
[2023-09-25] MEDS: RISPERIDONE 1 MG TABLET PO SCH (20:27)
[2023-09-25 23:08] LABS: Albumin 2.4 g/dL (3.4-5.0); Bilirubin Total 0.3 mg/dL (0.2-1.0); Magnesium 1.7 mg/dL (1.6-2.4); Phosphorus 1.7 mg/dL (2.5-4.9); Potassium 3.2 mEq/L (3.5-5.1)
[2023-09-26] MEDS ORDERED: POTASSIUM PHOS IN 0.9 % NACL 15 MMOL/250 ML BAG IV ONE (00:11)
[2023-09-26] MEDS: MAGNESIUM SULFATE 1 gm IVPB 1 GM/100 ML BAG IV ONE ×2 (00:12→01:02)
[2023-09-26 00:49] VITALS: O2SAT 98
[2023-09-26] MEDS: HEPARIN 5000 UNIT/ML 1 ML VIAL SQ SCH ×2 (01:00→09:00)
[2023-09-26] MEDS ORDERED: POTASSIUM CL SA 10 MEQ TAB PO ONE (01:07)
[2023-09-26] MEDS: D5 0.45 NS 1,000 ML IV SCH ×2 (01:12→09:52)
[2023-09-26] MEDS: LEVOTHYROXINE SOD 0.075 MG TAB PO SCH (05:54)
[2023-09-26] MEDS: ENSURE ENLIVE 237 ML CAN PO SCH (09:00)
[2023-09-26] MEDS: JUVEN PACKET PO SCH (09:00)
[2023-09-26] MEDS: CEFTRIAXONE 1,000 MG in NA CHLORIDE 0.9% 50 ML IVPB SCH (09:00)
[2023-09-26] MEDS: MAGNESIUM CHLORIDE 64 MG TAB PO SCH (09:59)
[2023-09-26] MEDS: MULTIVITAMIN TAB PO SCH (09:59)
[2023-09-26] MEDS: ASPIRIN EC 81 MG TAB PO SCH (09:59)
[2023-09-26] MEDS: POTASS/SODIUM PHOSPHATE 1 PKT POWD.PACK PO SCH (10:00)
[2023-09-26 11:21] LABS: Absolute Lymphocytes (CBC) 0.8 K/uL (0.7-4.9); Hematocrit 33.3 % (36.0-45.0); MCV 86.6 fL (80-100); MPV 8.9 fL (7.6-11.3); Platelets 139 thou/uL (152-406); RBC Red Blood Cell Count 3.85 M/uL (3.86-4.86)
[2023-09-26 11:36] LABS: Albumin 2.4 g/dL (3.4-5.0); Bilirubin Total 0.4 mg/dL (0.2-1.0); Magnesium 1.7 mg/dL (1.6-2.4); Phosphorus 1.7 mg/dL (2.5-4.9); Potassium 3.8 mEq/L (3.5-5.1); Protein, Total 5.1 g/dL (6.4-8.2)
[2023-09-26 12:11] VITALS: BP 142/68; TEMP 98
[2023-09-26 12:23] LABS: Blood Morphology Comment NOT SEEN (NOT SEEN); Platelet Estimate ADEQ; White Blood Cell Scan OK (OK)
--- NOTE | 2023-09-26 16:09 | P.DS ---
Admission Date: 09/21/23 Discharge Date: 09/26/23 Disposition: ROUTINE DISCHARGE Discharge Condition: GOOD Reason for Admission: protein malnutrion, hypotenison, lactic acidosis Hospital Course: Patient is a 73-year-old female with a past medical history significant for Hypothyroidism, Eczema, Bipolar disorder who presents with complaint of altered mental status with associated signs and symptoms of weight loss. In the ER p isabela's systolic blood pressure was noted to be in the 70s and patient was diagnosed with severe lactic acidosis, acute renal failure, transaminitis, severe hypothermia, hypotension and type II DE. Dance Historian and socially responsible investment adviser were consulted. Patient was placed on IV hydration and antibiotics. CT head did not indicate any acute intracranial abnormality. CT abdomen did not indicate any acute intra-abdominal abnormality. Patient was also seen on this admission by physical therapy, speech therapist and dietitian. Their recommendations were implemented. Echocardiogram indicates normal EF and grade 1 diastolic dysfunction. Over time patient mental status and clinical situation improved. Patient was cleared for discharge by consultants. Patient was instructed to follow-up with her PCP and consultants. Patient was also referred to a psychiatrist. Patient verbalized understanding of discharge instructions and was discharged in stable condition to [facility]. Vital Signs/Physical Exam: Temp Pulse Resp BP Pulse Ox 98.0 F 80 14 142/68 H 99 09/26/23 12:00 09/26/23 12:00 09/26/23 12:00 09/26/23 12:00 09/26/23 12:00 General: Alert, Oriented x2 HEENT: Atraumatic, PERRLA Neck: Supple, 2+ carotid pulse no bruit Respiratory: Clear to auscultation bilaterally, Normal air movement Cardiovascular: No edema, Normal S1 S2 Capillary refill: <2 Seconds Gastrointestinal: Normal bowel sounds, Soft and benign, No ascites Musculoskeletal: No clubbing Integumentary: No rashes, No significant lesion Neurological: Normal speech, Normal tone Lymphatics: No axilla or inguinal lymphadenopathy Laboratory Data at Discharge: WBC 6.50 thou/uL (4.3-10.9) 09/26/23 11:08 Hgb 11.2 g/dL (12.0-15.0) L 09/26/23 11:08 Hct 33.3 % (36.0-45.0) L 09/26/23 11:08 Plt Count 139 thou/uL (152-406) L 09/26/23 11:08 PT 12.0 SECONDS (9.5-12.5) 09/21/23 11:59 INR 1.09 09/21/23 11:59 Sodium 141 mEq/L (136-145) 09/26/23 11:08 Potassium 3.8 mEq/L (3.5-5.1) D 09/26/23 11:08 BUN 13 mg/dL (7-18) 09/26/23 11:08 Creatinine 0.64 mg/dL (0.55-1.02) 09/26/23 11:08 Glucose 112 mg/dL (74-106) H 09/26/23 11:08 Phosphorus 1.7 mg/dL (2.5-4.9) L 09/26/23 11:08 Magnesium 1.7 mg/dL (1.6-2.4) 09/26/23 11:08 Total Bilirubin 0.4 mg/dL (0.2-1.0) 09/26/23 11:08 AST 43 U/L (15-37) H 09/26/23 11:08 ALT 107 U/L (13-56) H 09/26/23 11:08 Alkaline Phosphatase 70 U/L (45-117) 09/26/23 11:08 Home Medications: Cetirizine HCl [Zyrtec] 10 mg PO BID 06/08/14 Levothyroxine Sodium [Synthroid] 75 mcg PO DAILY 06/08/14 Tramadol HCl/Acetaminophen [Ultracet Tablet] 1 each PO Q4HP PRN #30 tablet 06/14/14 ondansetron HCL [Zofran] 4 mg PO Q6H PRN #15 tablet 06/14/14 Aspirin [Aspirin EC 81 MG] 81 mg PO DAILY 03/17/15 Biotin 10 mg PO BID 03/17/15 Multivitamin [Multivitamins] 1 each PO DAILY 03/17/15 Ensure Enlive 237 ml PO TID #90 can 09/25/23 Brent [Brent*] 1 pkt PO BID #60 packet 09/25/23 Magnesium Chloride [Slow-Mag*] 64 mg PO DAILY #30 tab 09/25/23 risperiDONE [Risperdal 1 mg tab*] 0.5 mg PO BEDTIME #30 tab 09/25/23 New Medications: Ensure Enlive 237 ml PO TID #90 can Brent [Brent*] 1 pkt PO BID #60 packet risperiDONE [Risperdal 1 mg tab*] 0.5 mg PO BEDTIME #30 tab Magnesium Chloride [Slow-Mag*] 64 mg PO DAILY #30 tab Physician Discharge Instructions: -DC IV and DC to swing bed once patient is accepted and approved -Follow-up with PCP in 2 to 4 weeks -Follow-up with psychiatry in 2 to 4 weeks -Please call Dr. Faith at [phone] if any questions regarding hospital stay -Please call nursing station at [phone] if any nursing or medication questions -Return to the emergency room if symptoms worsen Diet: Regular Activity: Fall precautions Followup: Jeffy Baca [ACTIVE - CAN ADMIT] - (F/U in 2-4 weeks) NONE,NONE [Primary Care Provider] -
== END 2023-09-26 17:30 | disposition swing bed (61) | DRG 871 ==
LOC: ER 11:07 → ERHOLD 16:41 → 4TH 17:33
PROVIDERS: ADMIT Hospitalist; ATTEND Hospitalist
DX: A41.9 Sepsis, unspecified organism (principal); E43 Unspecified severe protein-calorie malnutrition; G93.41 Metabolic encephalopathy; R57.1 Hypovolemic shock; I21.A1 Myocardial infarction type 2; N17.9 Acute kidney failure, unspecified; E87.21 Acute metabolic acidosis; Z68.1 Body mass index [BMI] 19.9 or less, adult; R64 Cachexia; E03.9 Hypothyroidism, unspecified; I95.9 Hypotension, unspecified; E86.9 Volume depletion, unspecified; F31.9 Bipolar disorder, unspecified; E86.0 Dehydration; R68.0 Hypothermia, not associated with low environmental temperature; R74.01 Elevation of levels of liver transaminase levels; Z88.5 Allergy status to narcotic agent; Z88.8 Allergy status to other drugs, medicaments and biological substances; Z11.52 Encounter for screening for COVID-19; Z79.82 Long term (current) use of aspirin; Z91.041 Radiographic dye allergy status; Z91.013 Allergy to seafood; Z79.899 Other long term (current) drug therapy; Z90.710 Acquired absence of both cervix and uterus; Z79.890 Hormone replacement therapy
CPT/HCPCS: 36415; 36600; 51702; 70450; 71045; 74176; 80048; 80053; 80076; 82140; 82306; 82533; 82550; 82728; 82805; 82947; 83540; 83605; 83735; 83880; 83970; 84100; 84439; 84443; 84466; 84484; 85025; 85610; 87040; 87804; 87811; 92523; 92610; 93005; 93306; 97161; 97165; 97530; 99285; J0360; J0692; J0696; J1630; J1644; J3475; J3480; J7030; J7040; J7799

== ENCOUNTER 2024-01-23 12:29 | Emergency (ER) | payer OTHER ==
--- NOTE | 2024-01-23 15:01 | ER ---
Nurse's Notes [facility] Name: Sharmaine Amaya Age: 73 yrs Sex: Female : 1950 Arrival Date: 01/23/2024 Time: 12:15 Bed 17 Private MD: Diagnosis: Dyspnea;Schizophrenia, unspecified Presentation: 01/22 12:19 Chief complaint: EMS states: SOB AT CARE HOME. Coronavirus screen: At this time, the bp client does not indicate any symptoms associated with coronavirus-19. Ebola Screen: No symptoms or risks identified at this time. Initial Sepsis Screen: Does the patient meet any 2 criteria? No. Patient's initial sepsis screen is negative. Does the patient have a suspected source of infection? No. Patient's initial sepsis screen is negative. Risk Assessment: Do you want to hurt yourself or someone else? Patient reports no desire to harm self or others. Onset of symptoms is unknown. Care prior to arrival: Glucose check: 138. 12:19 Method Of Arrival: EMS: [facility] bp 12:19 Acuity: YOKO 3 bp Triage Assessment: 12:20 General: Appears in no apparent distress. Behavior is calm, cooperative. Pain: Denies bp pain. Respiratory: Reports shortness of breath Onset: The symptoms/episode began/occurred this morning, the patient has mild shortness of breath. Historical: - Allergies: 12:20 BACITRACIN; bp 12:20 benzalkonium chloride; bp 12:20 Demerol; bp 12:20 Gramicidin D; bp 12:20 Iodinated Contrast Media - IV Dye; bp 12:20 Morphine; bp 12:20 Neomycin Sulfate; bp 12:20 Polymyxin B Sulfate; bp 12:20 triclosan; bp - PMHx: 12:20 Hallucinations; Hypothyroidism; Schizophrenia; Hypertensive disorder; bp - PSHx: 12:20 Leg SX bianka placement; bp - Immunization history:: Adult Immunizations up to date. - Infectious Disease History:: Denies. - Social history:: Smoking status: unknown. Screenin:30 [facility] ED Fall Risk Assessment (Adult) History of falling in the last 3 months, bp including since admission No falls in past 3 months (0 pts). Abuse screen: Denies threats or abuse. Denies injuries from another. Nutritional screening: No deficits noted. Tuberculosis screening: No symptoms or risk factors identified. Assessment: 13:32 Reassessment: PT REFUSING PIV AND OTHER STUDIES DESPITE STAFF AND PHYSICIAN COMMUNITY SERVICES MANAGER. bp AWARE. 15:18 Reassessment: REPORT TO [facility], TRANSPORT PENDING. Cardiovascular: Rhythm bp is sinus rhythm. Respiratory: Airway is patent Respiratory effort is even, unlabored, Breath sounds are coarse bilaterally. 15:41 Reassessment: [facility] transport at bedside to transport tpt at this time. jl7 Vital Signs: 12:19 BP 120 / 70; Pulse 87; Resp 18; Temp 98; Pulse Ox 92% on 2 lpm NC; bp 15:20 BP 127 / 67; Pulse 85; Resp 18; Pulse Ox 94% ; bp Rupesh Coma Score: 13:14 Eye Response: spontaneous(4). Motor Response: obeys commands(6). Verbal Response: jessica oriented(5). Total: 15. ED Course: 12:15 Patient arrived in ED. im 12:19 Terry Sanchez, CLAUDIA is Primary Nurse. bp 12:20 Sabas Licona MD is Attending Physician. jessica 12:20 Triage completed. bp 12:20 Arm band placed on. bp 12:30 Patient has correct armband on for positive identification. bp 12:33 asked patient if she would allow me to do an EKG. she stated would I have to run a bc6 treadmill, i informed her that its just a series of stickers across her chest. patient stated no they did that in the ambulance she dose not need another one. 13:39 EKG done, by ED staff. sm8 14:07 Echo w/ Doppler Sent. bp 15:00 Chest Single View In Process Unspecified. EDMS 15:01 Ildefonso Knox MD is Referral Physician. jessica 15:19 No provider procedures requiring assistance completed. Patient did not have IV access bp during this emergency room visit. 15:41 Provided Education on: use of call slaughter. jl7 Administered Medications: No medications were administered Medication: 15:20 VIS not applicable for this client. bp Outcome: 15:01 Discharge ordered by . jessica 15:19 Discharged to usp. Report called to [facility] bp 15:19 Condition: stable 15:19 Discharge instructions given to patient, usp, Instructed on discharge instructions, follow up and referral plans. Demonstrated understanding of instructions, follow-up care, 15:42 Patient left the ED. jl7 Signatures: Dispatcher [employer] Sabas Anderson MD MD cha Leal, Jahala RN RN jl7 Terry Sanchez RN RN Trinidad Sweet 6 Jessica Garcia Scarlett 8
--- NOTE | 2024-01-23 15:01 | EDPHYS ---
Physician Documentation [facility] Name: Sharmaine Amaya Age: 73 yrs Sex: Female : 1950 Arrival Date: 01/23/2024 Time: 12:15 Bed 17 Private MD: ED Physician Sabas Licona HPI: 01/22 13:11 This 73 yrs old Female presents to ER via EMS with complaints of Shortness Of jessica Breath. 13:11 The patient has shortness of breath at rest. Onset: The symptoms/episode began/occurred jessica 3 week(s) ago. Duration: The symptoms are continuous, and are steadily getting worse. The patient's shortness of breath has no apparent modifying factors. Associated signs and symptoms: The patient has no apparent associated signs or symptoms. Severity of symptoms: At their worst the symptoms were mild in the emergency department the symptoms are unchanged. The patient has experienced similar episodes in the past, multiple times. Historical: - Allergies: 12:20 BACITRACIN; bp 12:20 benzalkonium chloride; bp 12:20 Demerol; bp 12:20 Gramicidin D; bp 12:20 Iodinated Contrast Media - IV Dye; bp 12:20 Morphine; bp 12:20 Neomycin Sulfate; bp 12:20 Polymyxin B Sulfate; bp 12:20 triclosan; bp - PMHx: 12:20 Hallucinations; Hypothyroidism; Schizophrenia; Hypertensive disorder; bp - PSHx: 12:20 Leg SX bianka placement; bp - Immunization history:: Adult Immunizations up to date. - Infectious Disease History:: Denies. - Social history:: Smoking status: unknown. ROS: 13:14 Constitutional: Negative for fever, chills, and weight loss, Eyes: Negative for injury, jessica pain, redness, and discharge, ENT: Negative for injury, pain, and discharge, Neck: Negative for injury, pain, and swelling, Cardiovascular: Negative for chest pain, palpitations, and edema, Abdomen/GI: Negative for abdominal pain, nausea, vomiting, diarrhea, and constipation, Back: Negative for injury and pain, : Negative for injury, bleeding, discharge, and swelling, MS/Extremity: Negative for injury and deformity, Skin: Negative for injury, rash, and discoloration, Neuro: Negative for headache, weakness, numbness, tingling, and seizure, Psych: Negative for depression, anxiety, suicide ideation, homicidal ideation, and hallucinations, Allergy/Immunology: Negative for hives, rash, and allergies, Endocrine: Negative for neck swelling, polydipsia, polyuria, polyphagia, and marked weight changes, Hematologic/Lymphatic: Negative for swollen nodes, abnormal bleeding, and unusual bruising, 13:14 Respiratory: Positive for cough, shortness of breath, Exam: 13:14 Constitutional: This is a well developed, well nourished patient who is awake, alert, jessica and in no acute distress. Head/Face: Normocephalic, atraumatic. Eyes: Pupils equal round and reactive to light, extra-ocular motions intact. Lids and lashes normal. Conjunctiva and sclera are non-icteric and not injected. Cornea within normal limits. Periorbital areas with no swelling, redness, or edema. ENT: Nares patent. No nasal discharge, no septal abnormalities noted. Tympanic membranes are normal and external auditory canals are clear. Oropharynx with no redness, swelling, or masses, exudates, or evidence of obstruction, uvula midline. Mucous membranes moist. Neck: Trachea midline, no thyromegaly or masses palpated, and no cervical lymphadenopathy. Supple, full range of motion without nuchal rigidity, or vertebral point tenderness. No Meningismus. Chest/axilla: Normal chest wall appearance and motion. Nontender with no deformity. No lesions are appreciated. Cardiovascular: Regular rate and rhythm with a normal S1 and S2. No gallops, murmurs, or rubs. Normal PMI, no JVD. No pulse deficits. Respiratory: Lungs have equal breath sounds bilaterally, clear to auscultation and percussion. No rales, rhonchi or wheezes noted. No increased work of breathing, no retractions or nasal flaring. Abdomen/GI: Soft, non-tender, with normal bowel sounds. No distension or tympany. No guarding or rebound. No evidence of tenderness throughout. Back: No spinal tenderness. No costovertebral tenderness. Full range of motion. Skin: Warm, dry with normal turgor. Normal color with no rashes, no lesions, and no evidence of cellulitis. MS/ Extremity: Pulses equal, no cyanosis. Neurovascular intact. Full, normal range of motion. Neuro: Awake and alert, GCS 15, oriented to person, place, time, and situation. Cranial nerves II-XII grossly intact. Motor strength 5/5 in all extremities. Sensory grossly intact. Cerebellar exam normal. Normal gait. Psych: Awake, alert, with orientation to person, place and time. Behavior, mood, and affect are within normal limits. 13:17 Cardiovascular: Rhythm: regular, Pulses: no pulse deficits are appreciated, Heart jessica sounds: murmur, diastolic, grade 3 over 6, Edema: is not appreciated, JVD: is not appreciated, 13:33 ECG was reviewed by the Attending Physician. jessica Vital Signs: 12:19 BP 120 / 70; Pulse 87; Resp 18; Temp 98; Pulse Ox 92% on 2 lpm NC; bp 15:20 BP 127 / 67; Pulse 85; Resp 18; Pulse Ox 94% ; bp Rupesh Coma Score: 13:14 Eye Response: spontaneous(4). Motor Response: obeys commands(6). Verbal Response: jessica oriented(5). Total: 15. MDM: 12:20 Patient medically screened. jessica 13:17 Differential diagnosis: Anemia Anxiety Reaction asthma, Bronchitis CHF exacerbation, jessica pneumonia, Pneumothorax Psychogenic pulmonary edema, Pulmonary Embolism reactive airway disease, Sepsis Unstable Angina. Antibiotic administration: Not indicated, the patient does not have an appreciated infiltrate. Immunization status: Pneumococcal vaccine: within last 5 years. Influenza vaccine: within last 5 years. Data reviewed: vital signs, nurses notes, lab test result(s), EKG, radiologic studies, plain films. Consideration of Admission/Observation Escalation of care including admission/observation considered. I considered the following discharge prescriptions or medication management in the emergency department Medications were administered in the Emergency Department. See MAR. Independent interpretation of the following test(s) in the Emergency Department EKG: See my EKG interpretation above. Test considered but Not performed: Ultrasound . Historians other than the Patient: EMS: ems well informed. 01/22 14:39 Order name: Echo with Doppler [facility] 01/22 14:55 Order name: Chest Single View [facility] 01/22 15:04 Order name: RAD EDFL 01/22 12:21 Order name: Cardiac monitoring; Complete Time: 13:25 [facility] 01/22 12:21 Order name: EKG - Nurse/Tech; Complete Time: 13:25 [facility] 01/22 12:21 Order name: O2 Per Protocol; Complete Time: 12:31 [facility] 01/22 12:21 Order name: O2 Sat Monitoring; Complete Time: :31 jessica EC:33 Rate is 86 beats/min. Rhythm is regular. QRS [place] is Normal. MS interval is normal. QRS jessica interval is normal. QT interval is normal. No Q waves. T waves are Normal. No ST changes noted. Clinical impression: NSR w/ Non-specific ST/T Changes and No evidence of ischemia. Interpreted by me. Reviewed by me. Administered Medications: No medications were administered Disposition Summary: 01/23/24 15:01 Discharge Ordered Notes: Location: Home jessica Problem: new jessica Symptoms: have improved jessica Condition: Stable jessica Diagnosis - Dyspnea jessica - Schizophrenia, unspecified jessica Followup: jessica - With: Private Physician - When: 2 - 3 days - Reason: Recheck today's complaints, Continuance of care, Re-evaluation by your physician Followup: jessica - With: Ildefonso Knox MD - When: 2 - 3 days - Reason: Recheck today's complaints, Re-evaluation by your physician Discharge Instructions: - Discharge Summary Sheet jessica - Schizophrenia jessica - Shortness of Breath, Adult jessica Forms: - Medication Reconciliation Form jessica - Antibiotic Education jessica - Prescription Opioid Use jessica - Patient Portal Instructions jessica - Leadership Thank You Letter jessica - SBAR form bp Signatures: Dispatcher [employer] Sabas Anderson MD MD cha Peltier, Brian, RN RN bp Corrections: (The following items were deleted from the chart) 12:31 12:31 BASIC METABOLIC PANEL+C.LAB.BRZ ordered. EDFL EDFL 12: 12:31 CBC+H.LAB.BRZ ordered. EDFL EDFL 12: 12:31 D-DIMER+COAG.LAB.BRZ ordered. EDFL EDFL 12:31 12:31 HEPATIC FUNCTION+C.LAB.BRZ ordered. EDFL EDMS 12:31 12:31 MAGNESIUM+C.LAB.BRZ ordered. EDFL EDFL 12:31 12:31 PROBNP+C.LAB.BRZ ordered. EDFL EDFL 12:31 12:31 PROTIME (+INR)+COAG.LAB.BRZ ordered. EDFL EDFL 12:31 12:31 Troponin High Sensitivity+C.LAB.BRZ ordered. EDFL EDFL 12: 12:31 BLOOD CULTURE*+BA.LAB.BRZ ordered. EDMS EDMS 12:31 LACTATE+C.LAB.BRZ ordered. EDMS EDMS 12:31 SARS-COV-2 Antigen Rapid+I.LAB.BRZ ordered. EDMS EDMS 12:31 Influenza Screen (A \T\ B)+BA.LAB.BRZ ordered. EDMS EDMS : 12:31 Urinalysis+U.LAB.BRZ ordered. EDMS EDMS 12:31 Arterial Blood Gas+RC.LAB.BRZ ordered. EDMS EDMS 13: 12:21 IV Saline Lock ordered. jessica bp 13:28 12:21 Labs collected and sent ordered. jessica bp
--- NOTE | 2024-01-23 15:04 | RAD REPORT ---
EXAM DESCRIPTION: RAD - Chest Single View - 01/23/2024 2:58 pm CLINICAL HISTORY: PAIN Chest pain. COMPARISON: <Comparisons> FINDINGS: Portable technique limits examination quality. There is a large right pleural effusion noted. Small to moderate left pleural effusion is also seen. Cardiac silhouette is somewhat obscured but likely mildly increased in size. No fracture.
[2024-01-23 19:10] VITALS: BP 127/67; O2SAT 94
--- NOTE | 2024-01-24 12:46 | ECHO ---
HEIGHT: ft in WEIGHT: lb oz DATE OF STUDY: 01/23/[address]: Sabas Licona MD 2-DIMENSIONAL: YES M.MODE: YES DOPPLER: YES COLOR FLOW: YES TDS: YES PORTABLE: YES DEFINITY: BUBBLE STUDY: DIAGNOSIS: SHORTNESS OF BREATH CARDIAC HISTORY: CATHERIZATION: SURGERY: PROSTHETIC VALVE: PACEMAKER: MEASUREMENTS (cm) DIASTOLIC (NORMALS) SYSTOLIC (NORMALS) IVSd 0.9 (0.6-1.2) LA Diam 4.2 (1.9-4.0) LVEF 60-65% LVIDd 4.6 (3.5-5.7) LVIDs 2.7 (2.0-3.5) %FS 41% LVPWd 1.0 (0.6-1.2) Ao Diam 2.8 (2.0-3.7) 2 DIMENSIONAL ASSESSMENT: RIGHT ATRIUM: NORMAL LEFT ATRIUM: NORMAL RIGHT VENTRICLE: NORMAL LEFT VENTRICLE: SEVERE BASAL SEPTAL HYPERTROPHY TRICUSPID VALVE: MILD TRICUSPID REGURGITATION MITRAL VALVE: NORMAL PULMONIC VALVE: NORMAL AORTIC VALVE: NORMAL PERICARDIAL EFFUSION: NONE AORTIC ROOT: NORMAL LEFT VENTRICULAR WALL MOTION: NORMAL DOPPLER/COLOR FLOW: NORMAL COMMENTS: 1. MILD CONCENTRIC HYPERTROPHY WITH SEVERE BASAL SEPTAL HYPERTROPHY (MEASURING 1.7 CENTIMETERS IN THICKNESS). 2. NORMAL LEFT VENTRICULAR SYSTOLIC FUNCTION, EJECTION FRACTION 60-65%, NORMAL WALL MOTION 3. MILD PULMONARY HYPERTENSION (RIGHT VENTRICULAR SYSTOLIC PRESSURE 40-45 mmHg) 4. NORMAL FILLING PRESSURE (RIGHT ATRIUM 0-5 mmHg) 5. NORMAL DIASTOLIC FUNCTION TECHNOLOGIST: MARCO A SKINNER
== END 2024-01-23 15:42 | disposition home or self-care (01) ==
LOC: ER 12:29
DX: R06.00 Dyspnea, unspecified (principal); F20.9 Schizophrenia, unspecified; R05.9 Cough, unspecified; I10 Essential (primary) hypertension; Z88.1 Allergy status to other antibiotic agents; Z88.3 Allergy status to other anti-infective agents; Z88.5 Allergy status to narcotic agent; Z88.8 Allergy status to other drugs, medicaments and biological substances; Z91.041 Radiographic dye allergy status
CPT/HCPCS: 71045; 93005; 93306; 99283

== ENCOUNTER 2024-01-25 13:29 | Inpatient (IN) | payer OTHER ==
[2024-01-25] MEDS ORDERED: AZITHROMYCIN 500 MG INJ IVPB ONE (13:57)
[2024-01-25] MEDS ORDERED: CEFTRIAXONE 1000 MG/VIAL ONE (13:57)
[2024-01-25] MEDS ORDERED: NA CHLORIDE 0.9% 250 ML ONE (13:57)
[2024-01-25 14:43] LABS: PT Prothrombin Time 13.2 SECONDS (9.5-12.5); PTT, Activated Partial Thromb 36.6 SECONDS (24.3-36.9); Protime INR 1.21
[2024-01-25 14:46] LABS: Absolute Basophils 0.1 K/uL (0-0.5); Absolute Lymphocytes (CBC) 0.4 K/uL (0.7-4.9); Absolute Monocytes 0.8 K/uL (0.1-1.3); Absolute Neutrophil 20.8 K/uL (1.8-8.0); Basophils % 0.3 % (0-1.3); Hematocrit 36.4 % (36.0-45.0); Hemoglobin 11.3 g/dL (12.0-15.0); Lymphocytes % 1.6 % (15.3-44.8); MCH 25.2 pg (27.0-35.0); MCHC 31.1 g/dL (32.0-36.0); MCV 81.1 fL (80-100); MPV 7.3 fL (7.6-11.3); Monocytes % 3.6 % (3.3-12.3); Neutrophils % 94.5 % (41.7-73.7); Nucleated Red Blood Cells % 0.1 % (0-0); Platelets 271 thou/uL (152-406); RBC Red Blood Cell Count 4.49 M/uL (3.86-4.86); Red Cell Distribution Width 17.7 % (12.1-15.2)
[2024-01-25 14:52] LABS: Albumin/Globulin Ratio 0.8 (1.1-1.8); Anion Gap 10.9 mEq/L (5.0-15.0); Bilirubin Total 0.3 mg/dL (0.2-1.0); Globulin 3.9 g/dL (2.3-3.5); Potassium 4.9 mEq/L (3.5-5.1); Protein, Total 6.9 g/dL (6.4-8.2)
--- NOTE | 2024-01-25 14:53 | RAD REPORT ---
EXAM DESCRIPTION: RAD - Chest Single View - 01/25/2024 2:43 pm CLINICAL HISTORY: DYSPNEA Chest pain. COMPARISON: <Comparisons> FINDINGS: Portable technique limits examination quality. Moderate to large right pleural effusion, unchanged since 01/23/2024. Small left pleural effusion. Ca rdiac size is likely prominent. No displaced fractures.
[2024-01-25 14:54] LABS: Troponin High Sensitivity 282.1 pg/mL (<58.9)
[2024-01-25 15:07] LABS: Arterial Blood Carboxyhemoglob 1.3 % (0-1.5); Blood Gas Oxyhemoglobin 91.6 % (94-97); Blood O2 Saturation 94.3 % (92-98.5)
[2024-01-25 15:08] LABS: Blood Gas THB 12.4 g/dl (12-18)
--- NOTE | 2024-01-25 15:11 | RAD REPORT ---
EXAM DESCRIPTION: CT - Thorax Wo Con CLINICAL HISTORY: Chest pain pleural effusion, R sil COMPARISON: Chest Single View dated 01/25/2024; Chest Single View dated 01/23/2024 FINDINGS: There is a large right-sided pleural effusion present. There is a small left pleural effus ion. There is mild right to left shift of the cardiomediastinal structures. No axillary, mediastinal or hilar adenopathy. Significant atelectasis is present in both lung bases. High-grade compression fracture is seen lower thoracic spine. All CT scans are performed using dose optimization technique as appropriate and may include automated exposure control or mA/KV adjustment according to patient size. IMPRESSION: Large right-sided pleural effusion with mild right to left midline shift of cardiomedias tinal structures. Small left pleural effusion. Bibasilar atelectasis is present.
--- NOTE | 2024-01-25 15:14 | RAD REPORT ---
EXAM DESCRIPTION: US - UPPER EXTREMITY VENOUS UNILATE - 01/25/2024 2:43 pm CLINICAL HISTORY: eval for DVT, RUE Arm pain and swelling COMPARISON: <Comparisons> FINDINGS: Right upper extremity venous system was interrogated with Doppler technique. Normal flow, compressibility and augmentation was noted. There is no DVT present. IMPRESSION: No evidence of right upper extremity deep venous thrombosis.
[2024-01-25] MEDS ORDERED: FUROSEMIDE 40 MG/4 ML VIAL ONE (15:29)
[2024-01-25] MEDS ORDERED: KETAMINE HCL IN 0.9 % NACL 50 MG/5 ML SYRINGE IV ONE (15:29)
[2024-01-25 15:35] LABS: Anisocytosis 1+; Blood Morphology Comment NOTED (NOT SEEN); Platelet Estimate ADEQ; Polychromasia 1+; White Blood Cell Scan OK (OK)
[2024-01-25] MEDS ORDERED: NA CHLORIDE 0.9% 1,000 ML ONE (16:00)
[2024-01-25] MEDS ORDERED: propofoL 1,000 MG/100 ML VIAL IV ONE (16:00)
--- NOTE | 2024-01-25 16:16 | RAD REPORT ---
EXAM DESCRIPTION: RAD - Chest Single View - 01/25/2024 4:05 pm CLINICAL HISTORY: intubation Chest pain. COMPARISON: Chest Single View dated 01/25/2024; Chest Single View dated 01/23/2024; Chest Single View dated 09/21/2023; Chest Single View dated 08/30/2023; Thorax Wo Con dated 01/25/2024 FINDINGS: Portable technique limits examination quality. Tip of the endotracheal tube is at the level of the aortic arch and approximately 2 cm above the sparkle na. Enteric tube descends into the stomach. Moderate right pleural effusion with atelectasis in the r ight lung base.Mild atelectasis in the left lung base.
--- NOTE | 2024-01-25 16:53 | EDPHYS ---
Physician Documentation [facility] Name: Sharmaine Amaya Age: 73 yrs Sex: Female : 1950 Arrival Date: 01/25/2024 Time: 13:29 Bed 3 Private MD: ED Physician Daniel Taveras HPI: 01/24 13:37 This 73 yrs old Female presents to ER via EMS with complaints of hypoxia. ec2 13:38 Patient arrives today with reported hypoxia. Patient reportedly had saturations in the ec2 40s. Patient planing of some shortness of breath. Patient with history of hypertension, hypothyroidism. Also history of schizoaffective disease, schizophrenia. Patient states that she does not want an IV, states that she does not want to be worked up. She is agreeable after we expressed her concerns on her hypoxia.. Historical: - Allergies: 13:34 BACITRACIN; ld1 13:34 benzalkonium chloride; ld1 13:34 Demerol; ld1 13:34 Gramicidin D; ld1 13:34 Iodinated Contrast Media - IV Dye; ld1 13:34 Morphine; ld1 13:34 Neomycin Sulfate; ld1 13:34 Polymyxin B Sulfate; ld1 13:34 triclosan; ld1 - PMHx: 13:34 Hallucinations; Hypertensive disorder; Hypothyroidism; Schizophrenia; ld1 - PSHx: 13:34 Leg SX bianka placement; ld1 - Immunization history:: Adult Immunizations up to date. - Infectious Disease History:: Denies. - Social history:: Smoking status: Patient denies any tobacco usage or history of. ROS: 13:38 Constitutional: as per hpi ec2 Exam: 13:38 Constitutional: GEN: NAD Head: atraumatic Eyes: EOMI Ears: External ears are ec2 normal. CV: regular rate LUNGS: Diminished lung sounds on the right lung raman, bilateral lower extremity edema, right upper extremity edema. ABD: non-distended SKIN: no evidence of rashes MSK: no evidence of trauma NEURO: moves all extremities equally Vital Signs: 13:34 BP 126 / 80; Pulse 92; Resp 22; Pulse Ox 95% on 15 lpm Non-rebreather mask; Height 5 ld1 ft. 0 in. ; Pain 0/10; 13:41 Temp 97.8(TE); Weight 54.88 kg; ld1 13:41 Pulse Ox 94% on BiPAP; FiO2 60 %; ld1 14:38 BP 111 / 55; Pulse 84; Resp 20; Pulse Ox 98% on BiPAP; ld1 16:21 BP 111 / 70; Pulse 94; Resp 18; Pulse Ox 100% ; FiO2 100 %; mb9 16:30 BP 122 / 74; Pulse 95; Resp 16; Temp 97.1; Pulse Ox 100% on ETT vent; mb9 17:00 BP 110 / 79; Pulse 81; Resp 16; Pulse Ox 100% ; mb9 17:43 BP 90 / 73; Pulse 79; Resp 16; Pulse Ox 100% ; FiO2 60 %; mb9 18:09 BP 123 / 81; Pulse 78; Resp 16; Pulse Ox 100% ; FiO2 60 %; mb9 18:30 BP 104 / 75; Pulse 72; Resp 16; Pulse Ox 100% on ETT vent; ld1 18:44 BP 104 / 75; Pulse 73; Resp 16; Pulse Ox 100% on ETT vent; ld1 13:34 Pain Scale: Adult ld1 Procedures: 15:51 Intubation: Ventilated with 100% NRB prior to procedure. Intubated orally using # 3 ec2 Neftali blade with 7.5 mm ETT. was successful on first attempt. Ventilated with ventilator. Tube secured with ETT bishop measured 23 cm at lip. Placement verified by CXR, CO2 detector with (+) color change, auscultating bilateral breath sounds, O2 saturation after procedure was 99 %. Patient tolerated well. 16:50 Chest tube insertion: the site was prepped using Betadine, in sterile fashion, Tube ec2 size: a 16 english chest tube was inserted, introduced in right lateral chest wall, to pleur-e-vac, dressed with vaseline gauze, foam tape, 4x4s, the patient tolerated the procedure well. MDM: 13:34 Patient medically screened. ec2 13:38 Data reviewed: vital signs. ED course: Patient arrives today for evaluation of ec2 shortness of breath. Examination remarkable for hypoxic dividual with saturations in the 50s requiring 15 L of oxygen. I decided to place the patient on BiPAP for her hypoxia. Patient does have diminished lung sounds in the right lung field. Does have lower extremity edema as well. Will obtain lab work, chest x-ray, CT scan of the chest, ultrasound of the right upper extremity, evaluating for processes such as DVT, ACS, volume overload, PE, pneumonia.. 13:59 ED course: EKG independently reviewed and interpreted by me, shows normal sinus rhythm, ec2 rate 90, no acute ST segment elevations, intervals are non-concerning. . 14:29 ED course: On reassessment patient with improvement in respiratory status.. ec2 14:55 ED course: Chest x-ray independently reviewed and interpreted by me, shows large ec2 right-sided pleural effusion as well as smaller left-sided pleural effusion along with cardiomegaly. Radiology reports this is unchanged from 01/23/2024. . 14:55 ED course: Will obtain CT scan of the chest to further evaluate complexity of the ec2 pleural effusion. . 15:09 ED course: Metabolic profile is overall reassuring. BNP elevated at 8000, troponin ec2 elevated at 282. CBC shows leukocytosis with a white blood cell count of 22. Lactic acid within normal ranges at 2.0. Give the patient full dose of aspirin for the elevated troponin, I suspect patient is having a CHF exacerbation causing the patient's shortness of breath. Will give the patient Lasix as well. . 15:18 ED course: CT scan of the chest shows large right-sided pleural effusion with slight ec2 right to left midline shift. Will place a pigtail catheter to help drain the effusion. . 15:56 ED course: Given the patient's increase in alteration in mental status, I decided to ec2 intubate the patient. Patient intubated without issue.. 15:56 ED course: Will place a pigtail catheter as well to help drain the right-sided pleural ec2 effusion.. 16:47 ED course: I placed a right-sided pigtail catheter with copious amounts of serous fluid ec2 output.. 16:52 ED course: Additionally post intubation chest x-ray independently reviewed and ec2 interpreted by me, shows initial findings along with appropriate placed ET tube approximately 2 cm above the alton. . 16:56 ED course: Post chest tube intubation independently reviewed and interpreted by me, ec2 shows chest tube in the right hemithorax, is significantly advanced with some coiling. Patient does have significant serous fluid output, so I will not pull back the chest tube given that it is functioning.. 17:02 ED course: Ultimately I suspect volume overload, secondary to congestive heart failure ec2 causing patient's shortness of breath, I did empirically cover for pneumonia, possible concurrent pneumonia, sepsis. Patient admitted and appropriate for ICU.. 01/24 13:35 Order name: Blood Culture Adult (2) ec2 01/24 13:35 Order name: CBC with Diff; Complete Time: 16:53 ec2 01/24 13:35 Order name: CMP; Complete Time: 15:08 ec2 01/24 13:35 Order name: Lactate w/ 2H reflex if indic.; Complete Time: 14:54 ec2 01/24 13:35 Order name: Protime (+inr); Complete Time: 14:54 ec2 01/24 13:35 Order name: Ptt, Activated; Complete Time: 14:54 ec2 01/24 13:35 Order name: ABG ec2 01/24 13:35 Order name: BNP; Complete Time: 15:08 ec2 01/24 13:35 Order name: Troponin High Sensitivity; Complete Time: 15:08 ec2 01/24 14:51 Order name: CBC Smear Scan; Complete Time: 16:53 EDMS 01/24 17:29 Order name: ABG Arterial Blood Gas EDMS 01/24 17:29 Order name: ABG Arterial Blood Gas EDMS 01/24 17:29 Order name: ABG Arterial Blood Gas EDMS 01/24 17:29 Order name: CBC with Automated Diff EDMS 01/24 17:29 Order name: CBC with Automated Diff EDMS 01/24 17:29 Order name: Comprehensive Metabolic Panel EDMS 01/24 17:29 Order name: Comprehensive Metabolic Panel EDMS 01/24 17:29 Order name: Lactate w/ 2H reflex if indic. EDMS 01/24 17:29 Order name: Lactate w/ 2H reflex if indic. EDMS 01/24 17:29 Order name: Lipid Profile EDMS 01/24 17:29 Order name: Lipid Profile EDMS 01/24 17:29 Order name: Magnesium EDMS 01/24 17:29 Order name: Magnesium EDMS 01/24 17:29 Order name: NT PRO-BNP EDMS 01/24 17:29 Order name: NT PRO-BNP EDMS 01/24 17:29 Order name: Phosphorus EDMS 01/24 17:29 Order name: Phosphorus EDMS 01/24 17:29 Order name: Protime (+INR) EDLA 01/24 17:29 Order name: Protime (+INR) EDLA 01/24 17:29 Order name: PTT, Activated Partial Thromb EDLA 01/24 17:29 Order name: PTT, Activated Partial Thromb EDLA 01/24 17:29 Order name: T4 Free EDLA 01/24 17:29 Order name: T4 Free EDLA 01/24 17:29 Order name: Thyroid Stimulating Hormone EDLA 01/24 17:29 Order name: Thyroid Stimulating Hormone EDLA 01/24 17:29 Order name: Troponin High Sensitivity EDLA 01/24 17:29 Order name: Troponin High Sensitivity EDLA 01/24 17:29 Order name: Troponin High Sensitivity EDLA 01/24 17:29 Order name: Troponin High Sensitivity [facility] 01/24 13:35 Order name: Chest Single View XRAY; Complete Time: 14:54 ec2 01/24 13:40 Order name: UPPER EXTREMITY VENOUS UNILATE; Complete Time: 15:16 EDMS 01/24 14:47 Order name: CT Chest Wo Con; Complete Time: 15:16 ec2 01/24 15:46 Order name: XRAY Chest (1 view); Complete Time: 16:53 mb9 01/24 16:21 Order name: Chest Single View XRAY; Complete Time: 17:26 mb9 01/24 17:29 Order name: Abdomen 1 View (KUB) EDLA 01/24 13:35 Order name: EKG; Complete Time: 13:36 ec2 01/24 17:28 Order name: CONS Physician Consult EDLA 01/24 17:28 Order name: CONS Physician Consult [facility] 01/24 17:28 Order name: CONS Physician Consult EDLA 01/24 17:28 Order name: Dietitian Consult EDLA 01/24 17:28 Order name: Respiratory Therapy Consult EDLA 01/24 13:35 Order name: Accucheck; Complete Time: 13:40 ec2 01/24 13:35 Order name: Cardiac monitoring; Complete Time: 13:40 ec2 01/24 13:35 Order name: EKG - Nurse/Tech; Complete Time: 13:50 ec2 01/24 13:35 Order name: IV Saline Lock - Large Bore; Complete Time: 14:22 ec2 01/24 13:35 Order name: Labs collected and sent; Complete Time: 14:22 ec2 /16 13:35 Order name: O2 Per Protocol; Complete Time: 13:40 01/24 13:35 Order name: O2 Sat Monitoring; Complete Time: 13:40 01/24 13:35 Order name: Vital Signs; Complete Time: 13:40 01/24 15:18 Order name: Chest Tube Consent; Complete Time: 16:20 01/24 15:18 Order name: Chest Tube Setup; Complete Time: 16:20 01/24 15:48 Order name: Espinosa; Complete Time: 15:56 mb9 Administered Medications: 14:35 Drug: Rocephin IV 1 grams IV at calculated rate once; Given slow IV push per pharmacy ld1 instructions Route: IV; Rate: calculated rate; Site: left upper arm; 14:35 Drug: AZITHromycin IVPB 500 mg IVPB once over 1 hrs; (mix in 250 mL NS) Route: IVPB; ld1 Infused Over: 1 hrs; Site: left upper arm; 15:31 Not Given (Physician Discretion): [id number] mg IVP once mb9 15:41 Drug: Etomidate IVP 20 mg IVP once Route: IVP; Site: left upper arm; mb9 17:20 Follow up: Response: No adverse reaction mb9 15:42 Drug: Rocuronium IVP 70 mg IVP once Route: IVP; Site: left upper arm; mb9 17:20 Follow up: Response: No adverse reaction mb9 16:08 Drug: Propofol IV 5 mcg/kg/min IV at calculated rate See Administration Instructions; mb9 Standard concentration 1000 mg / 100 mL; Recommended max rate 50 mcg/kg/min; Titrate 2 mcg/kg/min every 5 minutes to achieve goal (see titration policy); Goal parameter RASS score 0 to -2 Route: IV; Rate: calculated rate; Site: left upper arm; 16:13 Follow up: Response: No adverse reaction; RASS: Restless (+1); Rate change 7 mcg/kg/min mb9 16:18 Follow up: Response: No adverse reaction; RASS: Restless (+1); Rate change 9 mcg/kg/min mb9 16:23 Follow up: Response: No adverse reaction; RASS: Restless (+1); Rate change 12 mcg/kg/minmb9 16:28 Follow up: Response: No adverse reaction; RASS: Restless (+1); Rate change 15 mcg/kg/minmb9 16:33 Follow up: Response: No adverse reaction; RASS: Restless (+1); Rate change 18 mcg/kg/minmb9 16:38 Follow up: Response: No adverse reaction; RASS: Alert and Calm (0); Rate change 20 mb9 mcg/kg/min 17:25 Follow up: Response: No adverse reaction; IV Status: Infusion continued upon admission mb9 16:20 Not Given (Physician Discretion): aspirinchewable tablet 324 mg PO once; 81 mg tablets mb9 x 4 16:28 Drug: NS 0.9% IV 1000 ml IV at 50 ml/hr continuous Route: IV; Rate: 50 ml/hr; Site: ld1 left antecubital; 17:21 Follow up: IV Status: Infusion continued upon admission mb9 16:30 Drug: Furosemide IVP 40 mg IVP once; give over 2 minutes Route: IVP; Site: left upper ld1 arm; 17:21 Follow up: Response: No adverse reaction mb9 Disposition Summary: 01/25/24 16:52 Hospitalization Ordered Notes: Hospitalization Status: Inpatient Admission ec2 Provider: Arsalan Faith ec2 Location: Intensive Care Unit ec2 Condition: Stable ec2 Problem: an acute exacerbation ec2 Symptoms: have improved ec2 Bed/Room Type: Standard ec2 Room Assignment: 1-(01/25/24 17:35) bc6 Diagnosis - Sepsis, unspecified organism ec2 - Acute on chronic systolic (congestive) heart failure ec2 - Acute respiratory failure with hypoxia ec2 - Acute pulmonary edema ec2 - Generalized edema ec2 - Elevated Troponin ec2 Forms: - Medication Reconciliation Form ec2 - SBAR form ec2 - Leadership Thank You Letter ec2 Critical care time excluding procedures: 16:51 Critical care time: Bedside Care: 75 minutes, Consultation: 10 minutes. Total time: 85 ec2 minutes Signatures: Dispatcher [employer] Kate Wood RN RN ld1 Salome Suarez PABreannaC PA-C sb4 Irlanda George RN RN mb9 Trinidad Sweet bc6 Daniel Taveras MD MD ec2 Corrections: (The following items were deleted from the chart) 13:36 13:36 BLOOD CULTURE*+BA.LAB.BRZ ordered. EDMS EDMS 13:36 13:36 CBC+H.LAB.BRZ ordered. EDMS EDMS 13:36 13:36 COMPREHENSIVE METABOLIC PANEL+C.LAB.BRZ ordered. EDMS EDMS 13:36 13:36 LACTATE+C.LAB.BRZ ordered. EDMS EDMS 13:36 13:36 PROTIME (+INR)+COAG.LAB.BRZ ordered. EDMS EDMS 13:36 13:36 PTT, ACTIVATED+COAG.LAB.BRZ ordered. EDMS EDMS 13:36 13:36 PROBNP+C.LAB.BRZ ordered. EDMS EDMS 13:36 13:36 Troponin High Sensitivity+C.LAB.BRZ ordered. EDMS EDMS 13:37 13:37 Extremity Venous Uni Ltd+US.RAD.BRZ ordered. EDMS EDMS 13:37 13:37 Chest For PE Angio+CT.RAD.BRZ ordered. EDMS EDMS 16:51 14:05 Critical care time: Bedside Care: 30 minutes, Consultation: 5 minutes. Total ec2 time: 35 minutes ec2 17:35 16:52 ec2 bc6
--- NOTE | 2024-01-25 16:53 | ER ---
Nurse's Notes [facility] Name: Sharmaine Amaya Age: 73 yrs Sex: Female : 1950 Arrival Date: 01/25/2024 Time: 13:29 Bed 3 Private MD: Diagnosis: Sepsis, unspecified organism;Acute on chronic systolic (congestive) heart failure;Acute respiratory failure with hypoxia;Acute pulmonary edema;Generalized edema;Elevated Troponin Presentation: 01/24 13:34 Chief complaint: EMS states: toned out to [facility] for pt SpO2 49% RA. Coronavirus ld1 screen: At this time, the client does not indicate any symptoms associated with coronavirus-19. Ebola Screen: No symptoms or risks identified at this time. Risk Assessment: Do you want to hurt yourself or someone else? Patient reports no desire to harm self or others. Onset of symptoms was January 25, 2024. 13:34 Method Of Arrival: EMS: [facility] ld1 13:34 Acuity: [facility] 2 ld1 13:34 Initial Sepsis Screen: Does the patient meet any 2 criteria? RR > 20 per min. Altered mb9 Mental Status. Does the patient have a suspected source of infection? No. Patient's initial sepsis screen is negative. Triage Assessment: 13:34 General: Appears in no apparent distress. comfortable, Behavior is calm, cooperative, ld1 appropriate for age. Pain: Denies pain. EENT: No signs and/or symptoms were reported regarding the EENT system. Neuro: Level of Consciousness is awake, alert, obeys commands, Oriented to person, place, time, situation. Cardiovascular: Capillary refill < 3 seconds Patient's skin is warm and dry. Rhythm is sinus rhythm. Respiratory: Airway is patent Respiratory effort is even, unlabored. GI: Abdomen is flat, non-distended. : No signs and/or symptoms were reported regarding the genitourinary system. Derm: No signs and/or symptoms reported regarding the dermatologic system. Musculoskeletal: No signs and/or symptoms reported regarding the musculoskeletal system. Historical: - Allergies: 13:34 BACITRACIN; ld1 13:34 benzalkonium chloride; ld1 13:34 Demerol; ld1 13:34 Gramicidin D; ld1 13:34 Iodinated Contrast Media - IV Dye; ld1 13:34 Morphine; ld1 13:34 Neomycin Sulfate; ld1 13:34 Polymyxin B Sulfate; ld1 13:34 triclosan; ld1 - PMHx: 13:34 Hallucinations; Hypertensive disorder; Hypothyroidism; Schizophrenia; ld1 - PSHx: 13:34 Leg SX bianka placement; ld1 - Immunization history:: Adult Immunizations up to date. - Infectious Disease History:: Denies. - Social history:: Smoking status: Patient denies any tobacco usage or history of. Screenin:39 [facility] ED Fall Risk Assessment (Adult) History of falling in the last 3 months, ld1 including since admission No falls in past 3 months (0 pts). Abuse screen: Denies threats or abuse. Denies injuries from another. Nutritional screening: No deficits noted. Tuberculosis screening: No symptoms or risk factors identified. Assessment: 13:39 Reassessment: See triage assessment. RT at bedside with patient. ld1 14:38 Reassessment: Patient appears in no apparent distress at this time. No changes from ld1 previously documented assessment. Ultrasound at bedside. 15:44 Respiratory: Ventilator assessment: ET Tube: 7.5 23 cm at gum line. Ventilator Mode: mb9 Assist Control (AC) Respiratory Rate: 16 FiO2: 60 PEEP: 5 HOB > 30 degrees. Patient repositioned to supine position. 16:30 Reassessment: Patient appears in no apparent distress at this time. No changes from ld1 previously documented assessment. Neuro: Rosario Agitation-Sedation Scale (RASS): -3 Moderate Sedation. 17:45 Reassessment: Patient appears in no apparent distress at this time. Neuro: Rosario ld1 Agitation-Sedation Scale (RASS): -4 Deep sedation. 18:45 Reassessment: Patient appears in no apparent distress at this time. No changes from ld1 previously documented assessment. Neuro: Rosario Agitation-Sedation Scale (RASS): -4 Deep sedation. 18:58 Reassessment: Spoke with pts son and PEDRO Gaspar. Updated him on plan of care and room mb9 change. Vital Signs: 13:34 BP 126 / 80; Pulse 92; Resp 22; Pulse Ox 95% on 15 lpm Non-rebreather mask; Height 5 ld1 ft. 0 in. ; Pain 0/10; 13:41 Temp 97.8(TE); Weight 54.88 kg; ld1 13:41 Pulse Ox 94% on BiPAP; FiO2 60 %; ld1 14:38 BP 111 / 55; Pulse 84; Resp 20; Pulse Ox 98% on BiPAP; ld1 16:21 BP 111 / 70; Pulse 94; Resp 18; Pulse Ox 100% ; FiO2 100 %; mb9 16:30 BP 122 / 74; Pulse 95; Resp 16; Temp 97.1; Pulse Ox 100% on ETT vent; mb9 17:00 BP 110 / 79; Pulse 81; Resp 16; Pulse Ox 100% ; mb9 17:43 BP 90 / 73; Pulse 79; Resp 16; Pulse Ox 100% ; FiO2 60 %; mb9 18:09 BP 123 / 81; Pulse 78; Resp 16; Pulse Ox 100% ; FiO2 60 %; mb9 18:30 BP 104 / 75; Pulse 72; Resp 16; Pulse Ox 100% on ETT vent; ld1 18:44 BP 104 / 75; Pulse 73; Resp 16; Pulse Ox 100% on ETT vent; ld1 13:34 Pain Scale: Adult ld1 ED Course: 13:32 Patient arrived in ED. iw 13:34 Kate Shook, CLAUDIA is Primary Nurse. ld1 13:34 Danile Taveras MD is Attending Physician. ec2 13:34 Arm band placed on right wrist. ld1 13:36 Triage completed. ld1 13:39 Patient has correct armband on for positive identification. Placed in gown. Bed in low ld1 position. Call light in reach. Side rails up X2. structural steel ironworker on. Pulse ox on. NIBP on. Door closed. Noise minimized. Warm blanket given. 13:39 No provider procedures requiring assistance completed. ld1 13:43 Missed attempt(s): 22 gauge in right antecubital area. Bleeding controlled, band aid mb9 applied, catheter tip intact. 13:54 Note: us delayed due to pt having an ekg done now, and then will have blood gas done. lc6 per roving department end finder. 14:21 Troponin High Sensitivity Sent. as6 14:21 BNP Sent. as6 14:21 Blood Culture Adult (2) Sent. as6 14:21 CBC with Diff Sent. as6 14:21 CMP Sent. as6 14:21 Lactate w/ 2H reflex if indic. Sent. as6 14:21 Protime (+inr) Sent. as6 14:22 Ptt, Activated Sent. as6 14:22 Accessed peripheral vein via ultrasound, utilizing dynamic ultrasound technique Clean \T\ as6 dry. Dressing intact. Good blood return. Flushes easily. 20g 10cm midline to left upper arm . 14:39 Chest Single View XRAY In Process Unspecified. EDMS 14:45 UPPER EXTREMITY VENOUS UNILATE In Process Unspecified. EDMS 14:55 Notified ED physician of a critical lab result(s). DZIP=479.4. iw 15:00 Thermoregulation: warm blanket given to patient. mb9 15:03 CT Chest Wo Con In Process Unspecified. EDMS 15:44 Assisted provider with intubation using 7.5 mm ETT via oral route. ET tube secured at mb9 23cm at the lips. Set up intubation tray. Intubated by Daniel Taveras MD Placement verified by CO2 detector w/ + color change, auscultating bilateral breath sounds, End-tidal CO2 montioring CXR, Patient tolerated well. 15:47 NGT: inserted 16 Fr. other OG verified placement of air over stomach, verified return mb9 of gastric contents, Placement verified by X-ray, to intermittent suction. Patient tolerated well. 15:59 Espinosa cath inserted, using sterile technique, 16 Fr., by mi, balloon inflated, returned mb9 aliza urine. Patient tolerated well. 16:05 XRAY Chest (1 view) In Process Unspecified. EDMS 16:20 Assist provider with chest tube insertion with 16 Fr. in right lateral chest wall. Tray mb9 was set up. Attached to wall suction, Chest tube inserted by Daniel Taveras MD Placement verified by CXR, fluctuation of fluid, return of air, Dressed with Vaseline gauze, foam tape, Patient tolerated well. 16:26 Patient admitted, IV remains in place. mb9 16:31 Cleaned of incontinence. Linen changed. Clean brief applied to patient. ld1 16:50 Chest Single View XRAY In Process Unspecified. EDMS 16:52 Arsalan Faith MD is Hospitalizing Provider. ec2 Administered Medications: 14:35 Drug: Rocephin IV 1 grams IV at calculated rate once; Given slow IV push per pharmacy ld1 instructions Route: IV; Rate: calculated rate; Site: left upper arm; 14:35 Drug: AZITHromycin IVPB 500 mg IVPB once over 1 hrs; (mix in 250 mL NS) Route: IVPB; ld1 Infused Over: 1 hrs; Site: left upper arm; 15:31 Not Given (Physician Discretion): [id number] mg IVP once mb9 15:41 Drug: Etomidate IVP 20 mg IVP once Route: IVP; Site: left upper arm; mb9 17:20 Follow up: Response: No adverse reaction mb9 15:42 Drug: Rocuronium IVP 70 mg IVP once Route: IVP; Site: left upper arm; mb9 17:20 Follow up: Response: No adverse reaction mb9 16:08 Drug: Propofol IV 5 mcg/kg/min IV at calculated rate See Administration Instructions; mb9 Standard concentration 1000 mg / 100 mL; Recommended max rate 50 mcg/kg/min; Titrate 2 mcg/kg/min every 5 minutes to achieve goal (see titration policy); Goal parameter RASS score 0 to -2 Route: IV; Rate: calculated rate; Site: left upper arm; 16:13 Follow up: Response: No adverse reaction; RASS: Restless (+1); Rate change 7 mcg/kg/min mb9 16:18 Follow up: Response: No adverse reaction; RASS: Restless (+1); Rate change 9 mcg/kg/min mb9 16:23 Follow up: Response: No adverse reaction; RASS: Restless (+1); Rate change 12 mcg/kg/minmb9 16:28 Follow up: Response: No adverse reaction; RASS: Restless (+1); Rate change 15 mcg/kg/minmb9 16:33 Follow up: Response: No adverse reaction; RASS: Restless (+1); Rate change 18 mcg/kg/minmb9 16:38 Follow up: Response: No adverse reaction; RASS: Alert and Calm (0); Rate change 20 mb9 mcg/kg/min 17:25 Follow up: Response: No adverse reaction; IV Status: Infusion continued upon admission mb9 16:20 Not Given (Physician Discretion): aspirinchewable tablet 324 mg PO once; 81 mg tablets mb9 x 4 16:28 Drug: NS 0.9% IV 1000 ml IV at 50 ml/hr continuous Route: IV; Rate: 50 ml/hr; Site: ld1 left antecubital; 17:21 Follow up: IV Status: Infusion continued upon admission mb9 16:30 Drug: Furosemide IVP 40 mg IVP once; give over 2 minutes Route: IVP; Site: left upper ld1 arm; 17:21 Follow up: Response: No adverse reaction mb9 Medication: 13:39 VIS not applicable for this client. ld1 Intake: 18:59 Chest tube drainage ld1 Output: 18:59 Drainage: 1600ml; Total: 1600ml. ld1 18:59 Chest tube drainage ld1 Outcome: 16:52 Decision to Hospitalize by Provider. ec2 19:33 Admitted to ICU accompanied by nurse, accompanied by tech, via wheelchair, room 1, with mb9 oxygen, on monitor, with chart, Report called to CLAUDIA Zambrano 19:33 Condition: stable 19:33 Instructed on the need for admit, 19:46 Patient left the ED. jb4 Signatures: Dispatcher [employer] Gisselle Vail RN RN iw Omer Mendoza RN RN jb4 Kate Shook RN RN ld1 Ren Hidalgo RN RN as6 Irlanda George RN RN mb9 Cunningham, Laulita lc6 Daniel Taveras MD MD ec2 Corrections: (The following items were deleted from the chart) 16:27 16:00 Respiratory: Ventilator assessment: ET Tube: 7.5 23 cm at gum line. Ventilator mb9 Mode: Assist Control (AC) Respiratory Rate: 16 FiO2: 60 PEEP: 5 HOB > 30 degrees. Patient repositioned to supine position. mb9 17:13 16:30 BP 122 / 74; Pulse 95bpm; Resp 16bpm; Pulse Ox 100% ET / Ventilator; ld1 mb9 17:26 17:00 BP 110 / 079; Pulse 81bpm; Resp 16bpm; Pulse Ox 100%; mb9 mb9
--- NOTE | 2024-01-25 17:02 | RAD REPORT ---
EXAM DESCRIPTION: RAD - Chest Single View - 01/25/2024 4:55 pm CLINICAL HISTORY: chest tube Chest pain. COMPARISON: Chest Single View dated 01/25/2024; Chest Single View dated 01/25/2024; Chest Single View dated 01/23/2024; Chest Single View dated 09/21/2023; Thorax Wo Con dated 01/25/2024 FINDINGS: Portable technique limits examination quality. A small bore right-sided chest tube is in place directed cephalad. Mild reduction in the size of the right pleural fluid effusion. No pneumothorax. Small left pleural effusion. The heart is mildly enlar ged in size. Endotracheal tube tip is unchanged above the alton. Enteric tube descends in the stomac h.
--- NOTE | 2024-01-25 17:33 | P.HP ---
Certification for Inpatient Patient admitted to: Inpatient With expected LOS: >2 Midnights Patient will require the following post-hospital care: Correction Practitioner: I am a practitioner with admitting privileges, knowledge of patient current condition, hospital course, and medical plan of care. Services: Services provided to patient in accordance with Admission requirements found in Title 42 Section 412.3 of the Code of Federal Regulations Patient History Date of Service: 01/25/24 Reason for admission: Acute hypoxic respiratory failure History of Present Illness: Patient is a 73-year-old female who comes from the senior living with hypoxemia and confusion. Patient was seen in the hospital 4 hours ago with similar complaints. At that time she did not want to stay in the hospital and was discharged back to the senior living. However, patient is remained short of breath and hypoxic. Her O2 sats on room air were 50%, and she was sent to the emergency room. In the ER she was obtunded and she was found to have a large right pleural effusion. She had shifting of the mediastinum. Plan was to do a thoracentesis to evacuate the pleural effusion; however, patient was combative and was not remaining still to allow us to get this done. Decision was made to proceed with intubation. Patient was intubated and right-sided thoracentesis secondary to chest tube thoracotomy was performed. Patient had 1.5 L of pleural fluid removed. This appears to be serosanguineous. Labs will be sent. Will review echocardiogram. Pulmonary consultation. Patient will be admitted to the intensive care unit at [facility] for further evaluation. Patient was living at home by herself during the start of this year. However, she was found confused at her house and sitting on the toilet seat with hypoglycemia. Her son brought her into the emergency room, and from there she was sent to a swing bed. From the swing bed she was placed at [facility]. She has been living there and her clinical condition has been improving. Her strength has been improving. Overall, it seems to be a pretty good move. She has developed this pleural effusion which cause her respiratory failure. Patient will be admitted as mentioned above for further evaluation. Allergies bacitracin [From Neosporin] Allergy (Mild, Verified 03/17/15 13:55) Itching bacitracin zinc [From Neosporin] Allergy (Mild, Verified 03/17/15 13:55) Itching benzalkonium chloride [From Neosporin] Allergy (Mild, Verified 03/17/15 13:55) Itching gramicidin D [From Neosporin] Allergy (Mild, Verified 03/17/15 13:55) Itching meperidine HCl [From Demerol] Allergy (Mild, Verified 03/17/15 13:55) Itching morphine Allergy (Mild, Verified 03/17/15 13:55) Itching neomycin sulfate [From Neosporin] Allergy (Mild, Verified 03/17/15 13:55) Itching polymyxin B [From Neosporin] Allergy (Mild, Verified 03/17/15 13:55) Itching polymyxin B sulfate [From Neosporin] Allergy (Mild, Verified 03/17/15 13:55) Itching shellfish derived Allergy (Verified 03/17/15 13:55) Hives/Rash triclosan Allergy (Verified 09/26/23 01:20) Unknown almonds Allergy (Uncoded 03/17/15 13:55) Unknown Lysterine Allergy (Uncoded 03/17/15 13:55) Unknown Neomycin Sulfate Allergy (Uncoded 03/17/15 13:55) Unknown Shrimp Allergy (Uncoded 03/17/15 13:55) Unknown Wheat/glutens Allergy (Uncoded 03/17/15 13:55) Unknown Home Medications: Cetirizine HCl [Zyrtec] 10 mg PO BID 06/08/14 Levothyroxine Sodium [Synthroid] 75 mcg PO DAILY 06/08/14 Tramadol HCl/Acetaminophen [Ultracet Tablet] 1 each PO Q4HP PRN #30 tablet 06/14/14 ondansetron HCL [Zofran] 4 mg PO Q6H PRN #15 tablet 06/14/14 Aspirin [Aspirin EC 81 MG] 81 mg PO DAILY 03/17/15 Biotin 10 mg PO BID 03/17/15 Multivitamin [Multivitamins] 1 each PO DAILY 03/17/15 Ensure Enlive 237 ml PO TID #90 can 09/25/23 Brent [Brent*] 1 pkt PO BID #60 packet 09/25/23 Magnesium Chloride [Slow-Mag*] 64 mg PO DAILY #30 tab 09/25/23 risperiDONE [Risperdal 1 mg tab*] 0.5 mg PO BEDTIME #30 tab 09/25/23 - Past Medical/Surgical History Diabetic: No -: Hypothyroidism -: Eczema -: Bipolar disorder -: CKD III -: hysterectomy -: tonsillectomy -: - Family History Father Family History: Reviewed- Non-Contributory - Social History Smoking Status: Former smoker Alcohol use: No CD- Drugs: No Caffeine use: No Review of Systems 10-point ROS is otherwise unremarkable Physical Examination - Vital Signs Pulse: 108 Pulse Ox (%): 98 - Physical Exam General: Alert, Cachectic, Unresponsive, Other (Patient was intubated and sedated) HEENT: Atraumatic, PERRLA, Mucous membr. moist/pink, EOMI, Sclerae nonicteric Neck: Supple, 2+ carotid pulse no bruit, No LAD, Without JVD or thyroid abnormality Respiratory: Diminished (Diminished breath sounds in the right base) Cardiovascular: Regular rate/rhythm, Normal S1 S2, Systolic murmur Gastrointestinal: Normal bowel sounds, Soft and benign, Non-distended, No tenderness Musculoskeletal: No clubbing, No swelling, No tenderness Integumentary: No rashes Neurological: Sensation intact, Cranial nerves 3-12 intact, Abnormal gait, Abnormal speech, Abnormal strength Lymphatics: No axilla or inguinal lymphadenopathy - Studies Laboratory Data (last 24 hrs) 01/25/24 01/25/24 01/25/24 14:14 14:14 14:14 WBC 22.00 H Hgb 11.3 L Hct 36.4 Plt Count 271 PT 13.2 H INR 1.21 APTT 36.6 Sodium 139 Potassium 4.9 BUN 40 H Creatinine 1.02 Glucose 107 H Total Bilirubin 0.3 AST 121 H ALT 77 H Alkaline Phosphatase 152 H Assessment & Plan - Problems (Diagnosis) (1) Acute hypoxic respiratory failure Current Visit: Yes Status: Acute (2) Pleural effusion, right Current Visit: Yes Status: Acute (3) History of bipolar disorder Current Visit: Yes Status: Acute (4) Chronic kidney disease, stage 3 Current Visit: Yes Status: Acute (5) Acute kidney injury Current Visit: No Status: Acute (6) Altered mental status Current Visit: No Status: Acute (7) Non-STEMI (non-ST elevated myocardial infarction) Current Visit: No Status: Acute - Plan 1. Patient with acute respiratory failure secondary to large right pleural effusion; patient status post chest tube thoracotomy with large amount of serosanguineous fluid removed. Labs will be obtained and sent from the pleural effusion. Continue on mechanical ventilation. Continue sedation for vent protocol. Nebs and IV steroids along with IV antibiotics. Will check procalcitonin level. Monitor white blood cell count. Will start tube feeding in a.m. as long as NG tube output is minimal. Continue with supportive care while patient on ventilator. Will speak with his son who is her medical power of energy attorney regarding long-term prognosis and decision making. 2. Elevated troponin; cardiology consultation and review echocardiogram. Most likely type II myocardial infarction secondary to hypoxemia. 3. Acute on chronic kidney failure patient with stage III chronic kidney disease; gently hydrate and monitor renal function 4. Bipolar disorder; continue with Depakote and medication for mood stabilization 5. GI and DVT prophylaxis Discharge Plan: [facility] Plan to discharge in: Greater than 2 days - Advance Directives Does patient have a Living Will: Yes Does patient have a Durable POA for Healthcare: No - Code Status/Comfort Care Code Status Assessed: Yes Code Status: Full Code Critical Care: Yes Time Spent Managing PTS Care (In Minutes): 55
[2024-01-25] MEDS: NA CHLORIDE 0.9% 1,000 ML IV SCH (18:00)
[2024-01-25] MEDS ORDERED: ROCURONIUM 50 MG/5 ML VIAL IV ONE (18:45)
[2024-01-25] MEDS ORDERED: ETOMIDATE 20 MG/10 ML VIAL IV ONE (18:45)
[2024-01-25] MEDS ORDERED: IPRATROPIUM BROM 0.5MG/2.5ML NEB SCH (19:00)
[2024-01-25] MEDS ORDERED: ALBUTEROL 2.5 MG/3 ML NEB SOL NEB SCH (19:00)
[2024-01-25] MEDS ORDERED: ALBUTEROL 2.5 MG/3 ML NEB SOL ONE (19:24)
[2024-01-25] MEDS: ALBUTEROL 2.5 MG/3 ML NEB SOL NEB SCH (20:02)
[2024-01-25] MEDS: IPRATROPIUM BROM 0.5MG/2.5ML NEB SCH (20:03)
[2024-01-25] MEDS: METHYLPREDNISOLONE 125 MG INJ IV SCH (21:07)
[2024-01-25] MEDS: Levofloxacin500mg IV 500 MG/100 ML BAG IV SCH (21:07)
[2024-01-25] MEDS: ENOXAPARIN 40 MG/0.4 ML SQ SCH (21:07)
[2024-01-25] MEDS: METOPROLOL TARTRATE 5 MG/5 ML INJ IV STA (22:32)
[2024-01-26] MEDS: propofoL 1,000 MG/100 ML VIAL IV SCH (00:49)
[2024-01-26 05:01] LABS: Absolute Lymphocytes (CBC) 0.3 K/uL (0.7-4.9); Absolute Monocytes 0.3 K/uL (0.1-1.3); Absolute Neutrophil 18.1 K/uL (1.8-8.0); Basophils % 0.2 % (0-1.3); Hematocrit 33.8 % (36.0-45.0); Hemoglobin 10.7 g/dL (12.0-15.0); Lymphocytes % 1.7 % (15.3-44.8); MCH 25.4 pg (27.0-35.0); MCHC 31.6 g/dL (32.0-36.0); MCV 80.3 fL (80-100); MPV 7.8 fL (7.6-11.3); Monocytes % 1.7 % (3.3-12.3); Neutrophils % 96.4 % (41.7-73.7); Platelets 240 thou/uL (152-406); RBC Red Blood Cell Count 4.21 M/uL (3.86-4.86)
[2024-01-26 05:15] LABS: PT Prothrombin Time 14.2 SECONDS (9.5-12.5); PTT, Activated Partial Thromb 35.9 SECONDS (24.3-36.9); Protime INR 1.3
[2024-01-26 05:28] LABS: Albumin 2.5 g/dL (3.4-5.0); Albumin/Globulin Ratio 0.8 (1.1-1.8); Anion Gap 8.1 mEq/L (5.0-15.0); Bilirubin Total 0.3 mg/dL (0.2-1.0); Globulin 3.3 g/dL (2.3-3.5); Magnesium 1.8 mg/dL (1.6-2.4); Phosphorus 4.2 mg/dL (2.5-4.9); Potassium 4.1 mEq/L (3.5-5.1); Protein, Total 5.8 g/dL (6.4-8.2); Thyroid Stimulating Hormone 2.87 uIU/mL (0.358-3.740)
[2024-01-26 05:55] LABS: Blood O2 Saturation 99.1 % (92-98.5)
[2024-01-26] MEDS: MAGNESIUM SULFATE 1 gm IVPB 1 GM/100 ML BAG IV ONE (06:01)
--- NOTE | 2024-01-26 09:12 | P.PN ---
Subjective Date of Service: 01/26/24 Plan CBC with extubation later today. Spontaneous breathing trial today. Patient otherwise clinically doing well. Minimal chest tube output. Urine output adequate. Following commands. Review of Systems is unable to be obtained (Sedated and intubated) Physical Examination - Vital Signs Temperature: 97.4 F Blood Pressure: 153/81 Pulse: 95 Respirations: 16 Pulse Ox (%): 99 - Physical Exam General: Alert, In no apparent distress, Other (Sedated intubated) HEENT: Atraumatic, PERRLA, EOMI Neck: Supple, JVD not distended Respiratory: Diminished (Right basilar crackles) Cardiovascular: Regular rate/rhythm, Normal S1 S2 Gastrointestinal: Normal bowel sounds, Soft and benign, Non-distended, No tenderness Musculoskeletal: No clubbing, No swelling, No tenderness Neurological: Sensation intact, Cranial nerves 3-12 intact - Studies Laboratory Data (last 24 hrs) 01/25/24 01/25/24 01/25/24 14:14 14:14 14:14 WBC 22.00 H Hgb 11.3 L Hct 36.4 Plt Count 271 PT 13.2 H INR 1.21 APTT 36.6 Sodium 139 Potassium 4.9 BUN 40 H Creatinine 1.02 Glucose 107 H Total Bilirubin 0.3 AST 121 H ALT 77 H Alkaline Phosphatase 152 H Medications List Reviewed: Yes Assessment & Plan - Problems (Diagnosis) (1) Acute hypoxic respiratory failure Current Visit: Yes Status: Acute (2) Pleural effusion, right Current Visit: Yes Status: Acute (3) History of bipolar disorder Current Visit: Yes Status: Acute (4) Chronic kidney disease, stage 3 Current Visit: Yes Status: Acute (5) Acute kidney injury Current Visit: No Status: Acute (6) Altered mental status Current Visit: No Status: Acute (7) Non-STEMI (non-ST elevated myocardial infarction) Current Visit: No Status: Acute - Plan 1. Patient with acute respiratory failure secondary to large right pleural effusion; patient status post chest tube thoracotomy with large amount of serosanguineous fluid removed-2L. Labs will be obtained and sent from the pleural effusion. Continue on mechanical ventilation. Continue sedation for vent protocol. Plan to extubate. Continue with supportive care while patient on ventilator. Will speak with his son who is her medical power of senior attorney regarding long-term prognosis and decision making. 2. Elevated troponin; cardiology consultation and review echocardiogram. Most likely type II myocardial infarction secondary to hypoxemia. 3. Acute on chronic kidney failure patient with stage III chronic kidney disease; gently hydrate and monitor renal function 4. Bipolar disorder; continue with Depakote and medication for mood stabilization 5. GI and DVT prophylaxis Discharge Plan: Home Plan to discharge in: Greater than 2 days - Advance Directives Does patient have a Living Will: No Does patient have a Durable POA for Healthcare: Yes - Code Status/Comfort Care Code Status: Full Code Critical Care: Yes Time Spent Managing PTS Care (In Minutes): 35
[2024-01-26] MEDS: FENTANYL CITR 100 MCG/2 ML IV ONE (11:06)
--- NOTE | 2024-01-26 12:31 | P.CNS ---
Date of Consult: 01/26/24 Reason for Consult: Respiratory failure patient is on a ventilator Chief Complaint: Acute hypoxic respiratory failure History of Present Illness: Patient is 73 years of age admitted from the retirement with hypoxemia and confusion he was admitted chest tube was emergently inserted by the emergency room physician patient was intubated currently stable on a ventilator Allergies bacitracin [From Neosporin] Allergy (Mild, Verified 03/17/15 13:55) Itching bacitracin zinc [From Neosporin] Allergy (Mild, Verified 03/17/15 13:55) Itching benzalkonium chloride [From Neosporin] Allergy (Mild, Verified 03/17/15 13:55) Itching gramicidin D [From Neosporin] Allergy (Mild, Verified 03/17/15 13:55) Itching meperidine HCl [From Demerol] Allergy (Mild, Verified 03/17/15 13:55) Itching morphine Allergy (Mild, Verified 03/17/15 13:55) Itching neomycin sulfate [From Neosporin] Allergy (Mild, Verified 03/17/15 13:55) Itching polymyxin B [From Neosporin] Allergy (Mild, Verified 03/17/15 13:55) Itching polymyxin B sulfate [From Neosporin] Allergy (Mild, Verified 03/17/15 13:55) Itching shellfish derived Allergy (Verified 03/17/15 13:55) Hives/Rash triclosan Allergy (Verified 09/26/23 01:20) Unknown almonds Allergy (Uncoded 03/17/15 13:55) Unknown Lysterine Allergy (Uncoded 03/17/15 13:55) Unknown Neomycin Sulfate Allergy (Uncoded 03/17/15 13:55) Unknown Shrimp Allergy (Uncoded 03/17/15 13:55) Unknown Wheat/glutens Allergy (Uncoded 03/17/15 13:55) Unknown Home Medications: Levothyroxine Sodium [Synthroid] 25 mcg PO DAILY 06/08/14 Mirtazapine 7.5 mg PO BEDTIME 01/25/24 NIFEdipine [Nifedipine ER] 30 mg PO DAILY 01/25/24 OLANZapine [Olanzapine] 5 mg PO BID 01/25/24 Sertraline [Zoloft] 50 mg PO DAILY 01/25/24 haloperidoL [Haldol] 0.5 mg PO Q8HP PRN 01/25/24 - Past Medical/Surgical History Diabetic: No -: Hypothyroidism -: Eczema -: Bipolar disorder -: CKD III -: HTN -: Major depressive disorder -: Schizoaffective disorder -: hysterectomy -: tonsillectomy -: - Family History Father History Unknown: Yes Family History: Reviewed- Non-Contributory - Social History Smoking Status: Unknown if ever smoked Alcohol use: No CD- Drugs: No Caffeine use: No Place of Residence: [place] Review of Systems is unable to be obtained Physical Examination Temp Pulse Resp BP Pulse Ox 97.4 F 95 H 19 153/81 H 99 01/26/24 09:12 01/26/24 09:12 01/26/24 11:06 01/26/24 09:12 01/26/24 11:06 General: Unresponsive Respiratory: Diminished (R side) Cardiovascular: Edema (2 plus edema) Gastrointestinal: Normal bowel sounds, Soft and benign Musculoskeletal: Swelling Integumentary: No rashes Laboratory Data (last 24 hrs) 01/25/24 01/25/24 01/25/24 14:14 14:14 14:14 WBC 22.00 H Hgb 11.3 L Hct 36.4 Plt Count 271 PT 13.2 H INR 1.21 APTT 36.6 Sodium 139 Potassium 4.9 BUN 40 H Creatinine 1.02 Glucose 107 H Total Bilirubin 0.3 AST 121 H ALT 77 H Alkaline Phosphatase 152 H - Problems (1) Acute hypoxic respiratory failure Current Visit: Yes Status: Acute Plan: Patient is 73 years of age with respiratory failure significant right-sided pleural effusion has a chest tube in place patient is currently intubated patient's white count is elevated possibility includes malignancy also thromboembolism patient's white count is elevated will need to send pleural fluid for cytology chemistries DC steroids schedule patient for CT pulmonary angiogram labs chemistries all reviewed chest x-ray reviewed
[2024-01-26] MEDS ORDERED: IPRATROPIUM BROM 0.5MG/2.5ML NEB SCH (13:00)
[2024-01-26] MEDS: FENTANYL CITR 100 MCG/2 ML IV PRN (13:29)
--- NOTE | 2024-01-26 14:14 | RAD REPORT ---
EXAM DESCRIPTION: RAD - Chest Single View - 01/26/2024 1:46 pm CLINICAL HISTORY: Status Post Thorocentesis Chest pain. COMPARISON: <Comparisons> FINDINGS: Portable technique limits examination quality. Right-sided chest tube has been placed directed cephalad. The majority of the right pleural effusion has been evacuated. Patchy opacity in the left lung base is noted probably atelectasis. Endotracheal tube tip is 1 cm above the alton. Enteric tube descends into the stomach.
--- NOTE | 2024-01-26 17:24 | CON ---
Date of Consultation: 01/26/2024 Reason For Consultation: Elevated troponin. History Of Present Illness: A 73-year-old female comes in from the [facility] with altered mental status and hypoxia and oxygen saturation of 50%. She required intubation and has been sedated ever s blake on the ventilator. She had no tima complaints of chest pain prior to hospitalization. Past Medical History: Bipolar disorder, hypothyroidism, chronic kidney disease. Past Surgical History: Tonsillectomy, hysterectomy, . Medications: Refer reconciliation sheet for detailed list. Allergies: LONG LIST OF ALLERGIES WAS REVIEWED. PLEASE REFER TO NURSING NOTES. Family History: No premature coronary artery disease or cancer. Social History: She does not smoke or drink. Does not use any drugs. Review of Systems: All systems reviewed are negative except above mentioned in HPI. Physical Examination: Vital Signs: Reviewed. Head and Neck: Pupils are equal, reactive to light. Intact eye movements. No cervical lymphadenopa thy. Neck is supple. Thyroid is not enlarged. Lungs: Decreased breathing sounds and rhonchi bilaterally. No accessory muscle use. No muscle retr action. Heart: Regular rate and rhythm. No extra sounds. Abdomen: Soft, nontender. Bowel sounds positive. No organomegaly. No masses or hernia. No rigidi ty or rebound. Extremities: No edema, clubbing, or cyanosis. Intact pulses. Skin: No rash or nodule. Neurological: Sedated on the ventilator. Lymph Nodes: No cervical or axillary lymphadenopathy. Investigations: Troponin 85, down from 282 and the NT-proBNP is 8083. BUN is 40, creatinine 1.04. Chest x-ray today showed right-sided chest tube. Assessment/recommendation: 1.Elevated troponin. This is likely demand. When she is off the ventilator and clinically stable, we will plan for stress test which can be done as an outpatient. 2.Elevated NT-proBNP, likely chronic heart failure, but she does not look fluid overloaded. Obtain an echo. She received Lasix. I will hold off on diuretics now pending the echo. 3.Pleural effusion, large, status post thoracentesis and chest tube is in place. 4.Acute hypoxic respiratory failure, probably combination of pleural effusion and pneumonia and ther e is a component probably of congestive heart failure, but I recommend to obtain an echo to further e valuate. /ALEX Voice ID: [id number] Report ID: [id number]
[2024-01-26] MEDS: VITAL AF 1,000 ML BOT RTH SCH (17:45)
[2024-01-27 06:23] LABS: Arterial Blood Carboxyhemoglob 1.1 % (0-1.5); Blood Gas Oxyhemoglobin 95.6 % (94-97); Blood O2 Saturation 97.9 % (92-98.5)
[2024-01-27 06:25] LABS: Blood Gas THB 10.8 g/dl (12-18)
--- NOTE | 2024-01-27 08:41 | P.PN ---
Subjective Date of Service: 01/27/24 Chief Complaint: Acute hypoxic respiratory failure Subjective: Improving (Patient is improving more alert responsive hemodynamically stable chest x-ray is clear) Review of Systems is unable to be obtained Physical Examination - Vital Signs Temperature: 97.1 F Blood Pressure: 155/99 Pulse: 76 Respirations: 17 Pulse Ox (%): 100 - Physical Exam General: Alert Neck: Supple Respiratory: Clear to auscultation bilaterally Cardiovascular: No edema, Regular rate/rhythm - Studies Medications List Reviewed: Yes Assessment And Plan - Current Problems (Diagnosis) (1) Acute hypoxic respiratory failure Current Visit: Yes Status: Acute Plan: Patient admitted with respiratory failure secondary to pleural effusion chest x- ray is now clear there is no drainage in the tube fortunately no pleural fluid was sent off for analysis there is no tidaling or air leak labs reviewed CBC is pending was declining blood pressure is elevated plan to wean and extubate today cultures are all negative Echocardiogram MILD CONCENTRIC HYPERTROPHY WITH SEVERE BASAL SEPTAL HYPERTROPHY (MEASURING 1.7 CENTIMETERS IN THICKNESS). 2. NORMAL LEFT VENTRICULAR SYSTOLIC FUNCTION, EJECTION FRACTION 60-65%, NORMAL WALL MOTION 3. MILD PULMONARY HYPERTENSION (RIGHT VENTRICULAR SYSTOLIC PRESSURE 40-45 mmHg) 4. NORMAL FILLING PRESSURE (RIGHT ATRIUM 0-5 mmHg) 5. NORMAL DIASTOLIC FUNCTIO
[2024-01-27 08:43] LABS: Absolute Lymphocytes (CBC) 0.3 K/uL (0.7-4.9); Absolute Monocytes 1.8 K/uL (0.1-1.3); Absolute Neutrophil 20.7 K/uL (1.8-8.0); Basophils % 0.2 % (0-1.3); Hemoglobin 10.1 g/dL (12.0-15.0); Lymphocytes % 1.5 % (15.3-44.8); MCH 24.6 pg (27.0-35.0); MCHC 30.7 g/dL (32.0-36.0); MCV 80.2 fL (80-100); MPV 7.8 fL (7.6-11.3); Monocytes % 7.7 % (3.3-12.3); Neutrophils % 90.6 % (41.7-73.7); Nucleated Red Blood Cells % 0.1 % (0-0); Platelets 218 thou/uL (152-406); RBC Red Blood Cell Count 4.11 M/uL (3.86-4.86); Red Cell Distribution Width 18.1 % (12.1-15.2)
[2024-01-27 08:59] LABS: Anion Gap 8.9 mEq/L (5.0-15.0); Magnesium 2.2 mg/dL (1.6-2.4); Phosphorus 4.3 mg/dL (2.5-4.9); Potassium 3.9 mEq/L (3.5-5.1)
[2024-01-27 09:37] LABS: Anisocytosis 1+; Blood Morphology Comment NOTED (NOT SEEN); Platelet Estimate ADEQ; White Blood Cell Scan OK (OK)
--- NOTE | 2024-01-27 09:48 | RAD REPORT ---
EXAM DESCRIPTION: RAD - Chest Single View - 01/27/2024 9:39 am CLINICAL HISTORY: R pleural effusion follow up COMPARISON: 01/26/2024 FINDINGS: Lines: The endotracheal tube tip is located at the alton. Suggest retracting by 3 cm for more optimal positioning.Enteric tube overlies the stomach. Lungs: Mild airspace disease present in both lung bases which is similar. Pleural: Right-sided chest tube in similar positioning. The course of the right lung apex and is dire cted inferiorly. Small left pleural effusion. Cardiac: Stable size and configuration Mediastinum: Within normal limits. Bones: No acute fractures. Other: None IMPRESSION: 1. Right sided chest tube in similar positioning. Probable mild basilar atelectasis with small left pleural effusion. No significant residual right sided effusion. 2. Endotracheal tube is low lying and at the alton. Suggest retracting by 3 cm for more optimal posi tioning at the aortic arch.
[2024-01-27] MEDS ORDERED: HOME MED 1 EA UNK (Olanzapine [Olanzapine] 5 MG Tablet) PO SCH (10:17)
[2024-01-27] MEDS ORDERED: HALOPERIDOL 0.5 MG PO PRN (10:17)
[2024-01-27] MEDS ORDERED: FENTANYL CITR 100 MCG/2 ML IV PRN ×2 (10:26→10:28)
[2024-01-27] MEDS: NIFEDIPINE XL 30 MG TABLET PO SCH (10:49)
[2024-01-27] MEDS: NA CHLORIDE 0.9% 1,000 ML IV SCH (10:49)
[2024-01-27] MEDS: SERTRALINE HCL 50 MG TAB PO SCH (10:49)
[2024-01-27] MEDS: OLANZapine 10 MG TABLET PO SCH (10:50)
[2024-01-27 20:40] VITALS: BMI 24.0
[2024-01-27] MEDS: MIRTAZAPINE 15 MG TAB PO SCH (20:49)
[2024-01-27] MEDS ORDERED: HOME MED 1 EA UNK (Mirtazapine [Mirtazapine] 7.5 MG Tablet) PO SCH (21:00)
[2024-01-28] MEDS: LEVOTHYROXINE SOD 0.025 MG TAB ONE (06:08)
[2024-01-28] MEDS: LEVOTHYROXINE SOD 0.025 MG TAB PO SCH (06:14)
[2024-01-28] MEDS ORDERED: LEVOTHYROXINE SOD 0.075 MG TAB PO SCH (06:30)
[2024-01-28] MEDS ORDERED: NIFEDIPINE XL 30 MG TABLET PO SCH (09:00)
[2024-01-28] MEDS ORDERED: NIFEDIPINE 30 MG PO SCH (09:00)
--- NOTE | 2024-01-28 09:30 | P.PN ---
Date of Service: 01/28/24 Subjective Patient was extubated. Patient is clinically doing well. Patient denies any complaints. Review of Systems 10 point review system otherwise unremarkable dated and intubated) Physical Examination - Vital Signs reviewed - Physical Exam General: Alert, In no apparent distress Respiratory: Diminished (Right basilar crackles); chest tube in place Cardiovascular: Regular rate/rhythm, Normal S1 S2 Gastrointestinal: Normal bowel sounds, Soft and benign, Non-distended, No tenderness Musculoskeletal: No clubbing, No swelling, No tenderness Neurological: Sensation intact, Cranial nerves 3-12 intact Assessment & Plan - Problems (Diagnosis) (1) Acute hypoxic respiratory failure Current Visit: Yes Status: Acute (2) Pleural effusion, right Current Visit: Yes Status: Acute (3) History of bipolar disorder Current Visit: Yes Status: Acute (4) Chronic kidney disease, stage 3 Current Visit: Yes Status: Acute (5) Acute kidney injury Current Visit: No Status: Acute (6) Altered mental status Current Visit: No Status: Acute (7) Non-STEMI (non-ST elevated myocardial infarction) Current Visit: No Status: Acute - Plan 1. Patient with acute respiratory failure secondary to large right pleural effusion; patient status post chest tube thoracotomy with large amount of serosanguineous fluid removed-2L. Patient was extubated. Will go ahead and remove chest tube if pulmonary agreeable. Plan to do physical therapy and arrange for placement back at [facility]. Will update son 2. Elevated troponin; Most likely type II myocardial infarction secondary to hypoxemia. 3. Acute on chronic kidney failure patient with stage III chronic kidney disease; continue to monitor renal function 4. Bipolar disorder; continue with zyprexa 5. GI and DVT prophylaxis Discharge Plan: Home/[place] Plan to discharge in: Greater than 2 days - Advance Directives Does patient have a Living Will: No Does patient have a Durable POA for Healthcare: Yes - Code Status/Comfort Care Code Status: Full Code Critical Care: No Time Spent Managing PTS Care (In Minutes): 35
--- NOTE | 2024-01-28 09:32 | P.PN ---
Date of Service: 01/27/24 Subjective Patient was extubated last night. Patient is clinically doing well with no new complaints. Will continue to wean down oxygen. Patient denies any complaints. Physical Examination - Vital Signs reviewed - Physical Exam General: Alert, In no apparent distress Respiratory: Diminished (Right basilar crackles); chest tube in place Cardiovascular: Regular rate/rhythm, Normal S1 S2 Gastrointestinal: Normal bowel sounds, Soft and benign, Non-distended, No tenderness Musculoskeletal: No clubbing, No swelling, No tenderness Neurological: Sensation intact, Cranial nerves 3-12 intact Assessment & Plan - Problems (Diagnosis) (1) Acute hypoxic respiratory failure Current Visit: Yes Status: Acute (2) Pleural effusion, right Current Visit: Yes Status: Acute (3) History of bipolar disorder Current Visit: Yes Status: Acute (4) Chronic kidney disease, stage 3 Current Visit: Yes Status: Acute (5) Acute kidney injury Current Visit: No Status: Acute (6) Altered mental status Current Visit: No Status: Acute (7) Non-STEMI (non-ST elevated myocardial infarction) Current Visit: No Status: Acute - Plan 1. Patient with acute respiratory failure secondary to large right pleural effusion; patient status post chest tube thoracotomy with large amount of serosanguineous fluid removed-2L. Patient was extubated. Will go ahead and remove chest tube if pulmonary agreeable. Monitor chest tube output. Physical therapy consultation. 2. Elevated troponin; Most likely type II myocardial infarction secondary to hypoxemia. Continue monitoring cardiac functioning postextubation 3. Acute on chronic kidney failure patient with stage III chronic kidney disease; continue to monitor renal function; monitor renal function closely 4. Bipolar disorder; continue with oral antipsychotics; zyprexa 5. GI and DVT prophylaxis Discharge Plan: Home/[place] Plan to discharge in: Greater than 2 days - Advance Directives Does patient have a Living Will: No Does patient have a Durable POA for Healthcare: Yes - Code Status/Comfort Care Code Status: Full Code Critical Care: No Time Spent Managing PTS Care (In Minutes): 30
[2024-01-28 09:57] LABS: Absolute Lymphocytes (CBC) 0.3 K/uL (0.7-4.9); Absolute Neutrophil 14.5 K/uL (1.8-8.0); Basophils % 0.1 % (0-1.3); Eosinophils % 0.1 % (0-4.4); Hematocrit 35.3 % (36.0-45.0); Hemoglobin 10.9 g/dL (12.0-15.0); MCH 25.2 pg (27.0-35.0); MCHC 30.8 g/dL (32.0-36.0); MCV 81.8 fL (80-100); MPV 7.3 fL (7.6-11.3); Monocytes % 6.6 % (3.3-12.3); Neutrophils % 91.2 % (41.7-73.7); Nucleated Red Blood Cells % 0.1 % (0-0); Platelets 179 thou/uL (152-406); RBC Red Blood Cell Count 4.32 M/uL (3.86-4.86)
[2024-01-28 10:17] LABS: Albumin 2.1 g/dL (3.4-5.0); Albumin/Globulin Ratio 0.7 (1.1-1.8); Bilirubin Total 0.3 mg/dL (0.2-1.0); Magnesium 1.9 mg/dL (1.6-2.4); Protein, Total 5.1 g/dL (6.4-8.2)
--- NOTE | 2024-01-28 13:01 | RAD REPORT ---
[facility] CLINICAL HISTORY: pneumonia COMPARISON: Chest Single View dated 01/27/2024; Chest Single View dated 01/26/2024; Chest Single View dated 01/25/2024; Chest Single View dated 01/25/2024 TECHNIQUE: Portable AP view of the chest. FINDINGS: Right apical chest tube unchanged in position. Bilateral small pleural effusions and perih ilar fluffy airspace opacities. No pneumothorax. Background hyperinflation. The cardiomediastinal con tours are unremarkable. IMPRESSION: Findings suggestive of pulmonary edema.
[2024-01-28] MEDS: ACETAMINOPHEN 500 MG TAB PO PRN (20:17)
[2024-01-28] MEDS: OLANZapine 2.5 MG TAB PO SCH (20:18)
--- NOTE | 2024-01-28 20:29 | PN ---
Date of Progress Note: 01/28/2024 Subjective: Seen by bedside, doing clinically well, off the ventilator. Review of Systems: No chest pain, shortness of breath, orthopnea, or cough. No nausea, vomiting, or diarrhea. All othe r systems were reviewed and they were negative except what was mentioned in HPI. Objective: Vital Signs: Reviewed. Head and Neck: Pupils are equal, reactive to light. Intact eye movements. No JVD. No cervical lym phadenopathy. Neck is supple. Thyroid not enlarged. Lungs: Clear to auscultation bilaterally. No rhonchi, wheezing, or crackles. No accessory muscle u se. Heart: Regular rate and rhythm. No extra sounds. Abdomen: Soft, nontender. Bowel sounds positive. No organomegaly. No masses or hernia. No rigidi ty or rebound. Extremities: No clubbing or cyanosis. No edema. Neurologic: Alert, awake, oriented x3. No acute focal deficits appreciated. Investigations: Labs were reviewed. Assessment And Recommendations: 1.Elevated troponin and then normalized. This is likely demand ischemia. Recommend outpatient stre ss test. 2.Elevated NT-proBNP, but with normal ejection fraction. She appears to be euvolemic. Continue cur rent management. 3.Paroxysmal atrial fibrillation. She is in sinus. Continue current therapy. SR/MODL Voice ID: [id number] Report ID: [id number]
--- NOTE | 2024-01-29 09:36 | P.PN ---
Subjective Date of Service: 01/29/24 Chief Complaint: Acute hypoxic respiratory failure Subjective: Improving (no chest tube output, no c/o CP, SOB) <Venita Hunterlen - Last Filed: 01/29/24 09:36> Date of Service: 01/29/24 <Michele Baig C - Last Filed: 01/29/24 13:46> Review of Systems 10-point ROS is otherwise unremarkable Respiratory: As per HPI Cardiovascular: As per HPI <Venita Hunter - Last Filed: 01/29/24 09:36> Physical Examination - Vital Signs Temperature: 97.0 F Blood Pressure: 119/69 Pulse: 74 Respirations: 14 Pulse Ox (%): 91 - Physical Exam General: Alert, In no apparent distress, Oriented x3 HEENT: Atraumatic, Normocephalic Neck: JVD not distended Respiratory: Normal air movement, Other (right chest tube, dressing intact, unchanged placement per CXR on 01/27/24) Cardiovascular: Normal pulses, Other (right upper ext edema, will US) Capillary refill: <2 Seconds Gastrointestinal: Normal bowel sounds, Soft and benign Musculoskeletal: No clubbing Integumentary: No rashes Neurological: Normal speech, Normal tone Lymphatics: No axilla or inguinal lymphadenopathy External genitalia: Deferred Rectal: Deferred - Studies Medications List Reviewed: Yes <Venita Hunter - Last Filed: 01/29/24 09:36> Assessment And Plan - Plan - Problems (Diagnosis) (1) Acute hypoxic respiratory failure Current Visit: Yes Status: Acute (2) Pleural effusion, right Current Visit: Yes Status: Acute (3) History of bipolar disorder Current Visit: Yes Status: Acute (4) Chronic kidney disease, stage 3 Current Visit: Yes Status: Acute (5) Acute kidney injury Current Visit: No Status: Acute (6) Altered mental status Current Visit: No Status: Acute (7) Non-STEMI (non-ST elevated myocardial infarction) Current Visit: No Status: Acute - Plan 1. Patient with acute respiratory failure secondary to large right pleural effusion; patient status post chest tube thoracotomy with large amount of serosanguineous fluid removed. Labs will be obtained and sent from the pleural effusion. Dr. Maharaj following 2. Elevated troponin; cardiology consultation and review echocardiogram. Dr. Knox following 3. Acute on chronic kidney failure patient with stage III chronic kidney disease; gently hydrate and monitor renal function, 01/29/24 IVF stopped today 4. Bipolar disorder; continue with Depakote and medication for mood stabilization 5. GI and DVT prophylaxis Discharge Plan: Care Home Plan to discharge in: Greater than 2 days <Venita Hunter - Last Filed: 01/29/24 09:36> - Plan Pt seen and examined. I agree with the note by the [employer] SUPERVISOR. Pulm removed the right chest tube s/p right pleural effusion removal. Pt has right breast cancer with cutaneous involvement. CT chest shows bilateral pleural effusion ( R > L). Will f/u CT abd/pelvis. Pt need to follow up with the oncologist in [place] as soon as possible. Trend LFTs. <Michele Baig - Last Filed: 01/29/24 13:46>
--- NOTE | 2024-01-29 11:56 | P.PN ---
Subjective Date of Service: 01/29/24 Chief Complaint: Acute hypoxic respiratory failure Subjective: No new changes Review of Systems 10-point ROS is otherwise unremarkable Physical Examination - Vital Signs Temperature: 97.0 F Blood Pressure: 119/69 Pulse: 74 Respirations: 14 Pulse Ox (%): 91 - Physical Exam General: Alert, In no apparent distress HEENT: Atraumatic, PERRLA, EOMI Neck: Supple, JVD not distended Respiratory: Clear to auscultation bilaterally, Normal air movement Cardiovascular: Regular rate/rhythm, Normal S1 S2 Gastrointestinal: Normal bowel sounds, No tenderness Musculoskeletal: No tenderness Integumentary: No rashes Neurological: Normal speech, Normal tone, Normal affect Lymphatics: No axilla or inguinal lymphadenopathy - Studies Medications List Reviewed: Yes Assessment And Plan - Current Problems (Diagnosis) (1) Atrial fibrillation Current Visit: Yes Status: Acute Plan: Patient currently in sinus rhythm. Continue Nifedpine 30 mg daily Continue ASA 81 mg daily (2) HTN (hypertension) Current Visit: Yes Status: Acute Plan: patient BP is normal Continue Nifedipine 30 mg daily (3) Elevated troponin Current Visit: No Status: Acute Plan: most likely demand ischemia, outpatient ischemia evaluation.
--- NOTE | 2024-01-29 12:05 | P.PN ---
Subjective Date of Service: 01/29/24 Chief Complaint: Right-sided pleural effusion right breast mass Subjective: Improving (Patient is improving doing well no new complaint) Patient is doing well more alert responsive in no respiratory distress chest tube has been clamped over the weekend unfortunately no pleural fluid was sent off for analysis Review of Systems General: Weakness Respiratory: Shortness of Breath Other: Patient's right breast has a large mass with cutaneous involvement and swelling of the right arm Physical Examination - Vital Signs Temperature: 97.0 F Blood Pressure: 119/69 Pulse: 74 Respirations: 14 Pulse Ox (%): 91 - Physical Exam General: Alert, In no apparent distress, Oriented x3 HEENT: Atraumatic Neck: Supple Respiratory: Clear to auscultation bilaterally, Diminished Cardiovascular: No edema, Regular rate/rhythm, Normal S1 S2 Gastrointestinal: Normal bowel sounds, Soft and benign Integumentary: Other (Patient has a large mass in the right breast with cutaneous involved) - Studies Medications List Reviewed: Yes Assessment And Plan - Current Problems (Diagnosis) (1) Pleural effusion Current Visit: Yes Status: Acute Plan: 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 unfortunately no pleural fluid was sent off after chest tube was inserted was unable to collect any fluid despite clamping it for 2 days chest tube was subsequently removed labs chemistries reviewed white count is declining changed to Levaquin once a day (2) Breast cancer Current Visit: Yes Status: Acute Plan: Patient had large right-sided breast mass with cutaneous involvement this was only apparent once the large amount of chest tube dressing was removed by me I have informed the hospitalist will need a workup for presumed breast cancer patient was aware of this cutaneous involvement in this breast mass apparently she was scheduled to see a doctor [place] to a biopsy
--- NOTE | 2024-01-29 12:35 | EKG ---
Test Date: 2024-01-25 Test Time: 13:50:09 Methods And Procedures Analyst: KYLAH MEASUREMENT RESULTS: Intervals: Rate: 90 TX: 158 QRSD: 74 QT: 378 QTc: 462 [place]: P: 56 TX: 158 QRS: 92 T: 72 INTERPRETIVE STATEMENTS: Normal sinus rhythm Normal ECG Compared to ECG 01/23/2024 13:21:54 First degree AV block no longer present Right-axis deviation no longer present Myocardial infarct finding no longer present Electronically Signed On 01-29-24 12:26:32 CDT by Gatito Hutton
[2024-01-29] MEDS: levoFLOXacin 500 MG TAB PO SCH (13:30)
--- NOTE | 2024-01-29 17:06 | RAD REPORT ---
EXAM DESCRIPTION: CT - Abdomen Pelvis Wo Contrast - 01/29/2024 3:51 pm CLINICAL HISTORY: Abdominal pain COMPARISON: September 2023 TECHNIQUE: Computed axial tomography of the abdomen and pelvis was obtained. IV and oral contrast we re not requested. All CT scans are performed using dose optimization technique as appropriate and may include automated exposure control or mA/KV adjustment according to patient size. FINDINGS: The evaluation of solid organs, vessels and bowel is limited secondary to the lack of con trast administration. A small right pneumothorax. Small to moderate left pleural effusion. Small right pleural effusion Low density areas throughout the liver. Splenic granulomata. The pancreas and kidneys grossly normal Moderate amount of stool throughout the colon. Diffuse edema within the subcutaneous tissues. Hysterectomy. No adnexal mass seen. Small amount ascites A marked compression fracture T12 vertebral body unchanged. Additional lumbar compression fractures u nchanged. IMPRESSION: Small right pneumothorax Low-density areas throughout of the liver. These probably represent lesions. However, it could repres ent artifact as the patient's arms are by her side. It is recommended that the patient have a CT abdo men with IV contrast for further evaluation.
[2024-01-29] MEDS: ONDANSETRON 4 MG/2 ML VIAL IV PRN (18:25)
--- NOTE | 2024-01-30 10:57 | P.PN ---
Subjective Date of Service: 01/30/24 Chief Complaint: Right-sided pleural effusion right breast mass Subjective: No new changes (chest tube removed 01/29/24, pt denies SOB, chest pain. Refuses meds last pm, refused blood draw this am. Discussed with pt the evidence that she has a right breast cancer. Pt denies this and states a CT was done yesterday.) <Venita Hunter - Last Filed: 01/30/24 10:50> Date of Service: 01/30/24 <Michele Baig - Last Filed: 01/30/24 15:53> Review of Systems 10-point ROS is otherwise unremarkable Respiratory: As per HPI <Venita Hunter - Last Filed: 01/30/24 10:50> Physical Examination - Vital Signs Temperature: 98.2 F Blood Pressure: 147/75 Pulse: 89 Respirations: 16 Pulse Ox (%): 95 - Physical Exam General: Alert, In no apparent distress, Oriented x3 HEENT: Atraumatic, Normocephalic Neck: JVD not distended Respiratory: Normal air movement Cardiovascular: Normal pulses Capillary refill: <2 Seconds Gastrointestinal: Soft and benign Musculoskeletal: No clubbing Integumentary: Other (right breast hard/misshapened, pt denies implants, skin over right breast with cutaneous indurated rash. Right arm edematous.) Neurological: Normal speech, Normal tone Lymphatics: No axilla or inguinal lymphadenopathy External genitalia: Deferred Rectal: Deferred - Studies Medications List Reviewed: Yes <Venita Hunter - Last Filed: 01/30/24 10:50> - Studies Microbiology Data (last 24 hrs): 01/25/24 14:30 Blood - Blood Aerobic Blood Culture - Final No growth in 5 days. 01/25/24 14:30 Blood - Blood Anaerobic Blood Culture - Final No growth in 5 days. 01/25/24 14:14 Blood - Blood Aerobic Blood Culture - Final No growth in 5 days. 01/25/24 14:14 Blood - Blood Anaerobic Blood Culture - Final No growth in 5 days. <Michele Baig - Last Filed: 01/30/24 15:53> Assessment And Plan - Plan - Problems (Diagnosis) (1) Acute hypoxic respiratory failure Current Visit: Yes Status: Acute (2) Pleural effusion, right Current Visit: Yes Status: Acute (3) History of bipolar disorder Current Visit: Yes Status: Acute (4) Chronic kidney disease, stage 3 Current Visit: Yes Status: Acute (5) Acute kidney injury Current Visit: No Status: Acute (6) Altered mental status Current Visit: No Status: Acute (7) Non-STEMI (non-ST elevated myocardial infarction) Current Visit: No Status: Acute - Plan 1. Patient with acute respiratory failure secondary to large right pleural effusion; patient status post chest tube thoracotomy with large amount of serosanguineous fluid removed. Labs will be obtained and sent from the pleural effusion. Dr. Maharaj following. Repeat CT post tube removal shows "small right pneumothorax". O2 at 100% via NRB ordered 2. Elevated troponin; cardiology consultation and review echocardiogram. Dr. Knox following 3. Acute on chronic kidney failure patient with stage III chronic kidney disease; gently hydrate and monitor renal function, 01/29/24 IVF stopped today 4. Bipolar disorder; continue with Depakote and medication for mood stabilization 5. Right breast mass: likely breast CA. Will need outpatient oncologic workup 6. GI and DVT prophylaxis Discharge Plan: Detention Plan to discharge in: Greater than 2 days <Venita Hunter - Last Filed: 01/30/24 10:50> - Plan Pt seen and examined. I agree with the note by the SNUFF CONTAINER INSPECTOR. Pt likely has right gonzalez st cancer with posssible mets to the liver. CT abd shows multiple low density lesions in the liver. Consulted Oncology. Waiting for biopsy. Pt repeat CT post chest tube removal shows small right pneumothorax. O2 at 100% while on NRB ordered <Michele Baig - Last Filed: 01/30/24 15:53>
--- NOTE | 2024-01-30 12:05 | P.PN ---
Subjective Date of Service: 01/30/24 Chief Complaint: Right-sided pleural effusion right breast mass Patient is doing well the drainage from the chest tube was declined Review of Systems General: Weakness Respiratory: Shortness of Breath Physical Examination - Vital Signs Temperature: 98.2 F Blood Pressure: 147/75 Pulse: 89 Respirations: 16 Pulse Ox (%): 95 - Physical Exam General: Alert, Oriented x3 Respiratory: Clear to auscultation bilaterally Cardiovascular: No edema, Regular rate/rhythm, Other (Patient has edema of the right arm) - Studies Medications List Reviewed: Yes Assessment And Plan - Current Problems (Diagnosis) (1) Pleural effusion Current Visit: Yes Status: Acute Plan: Patient is doing much better drainage has decreased (2) Breast cancer Current Visit: Yes Status: Acute Plan: Patient wants to be evaluated and treated here most likely patient has breast cancer with diastases she has got some liver lesions and may have underlying pleural effusion Qualifiers: Breast location: overlapping sites of breast
[2024-01-30 12:26] LABS: Absolute Basophils 0.1 K/uL (0-0.5); Absolute Eosinophils 0.1 K/uL (0-0.5); Absolute Lymphocytes (CBC) 0.5 K/uL (0.7-4.9); Absolute Monocytes 1.2 K/uL (0.1-1.3); Absolute Neutrophil 17.2 K/uL (1.8-8.0); Basophils % 0.6 % (0-1.3); Eosinophils % 0.6 % (0-4.4); Hematocrit 36.7 % (36.0-45.0); Hemoglobin 11.1 g/dL (12.0-15.0); Lymphocytes % 2.6 % (15.3-44.8); MCH 24.2 pg (27.0-35.0); MCHC 30.1 g/dL (32.0-36.0); MCV 80.2 fL (80-100); MPV 7.9 fL (7.6-11.3); Neutrophils % 90.2 % (41.7-73.7); Nucleated Red Blood Cells % 0.1 % (0-0); Platelets 156 thou/uL (152-406); RBC Red Blood Cell Count 4.58 M/uL (3.86-4.86)
[2024-01-30 12:35] LABS: Anion Gap 7.6 mEq/L (5.0-15.0); Potassium 4.6 mEq/L (3.5-5.1)
--- NOTE | 2024-01-30 22:00 | PN ---
Date of Progress Note: 01/30/2024 Subjective: Seen at bedside. She is doing well. No shortness of breath or chest pain. Review of Systems: No chest pain, shortness of breath, orthopnea, or cough. No nausea, vomiting, diarrhea. All other s ystems reviewed and were negative. Physical Examination: Vital signs: Reviewed. Head and Neck: Pupils are equal, reactive to light. Intact eye movements. No JVD. No cervical lym phadenopathy. Neck is supple. Thyroid is not enlarged. Lungs: Clear to auscultation bilaterally. No rhonchi, wheezing, or crackles. No accessory muscle u se. Heart: Regular rate and rhythm. No extra sounds. Abdomen: Soft, nontender. Bowel sounds positive. No organomegaly. No masses or hernia. No rigidi ty or rebound. Extremities: No edema, clubbing, cyanosis. Intact pulses. Skin: No rash. No nodule. Neuro: Alert, awake, oriented x3. No acute focal deficits appreciated. Investigations: Labs reviewed. Assessment/recommendation: 1.Elevated troponin, mild. No acute chest pain. Plan for outpatient stress test. 2.Paroxysmal atrial fibrillation. She is in sinus rhythm. Continue current management. 3.Edema of right lower extremity, probably due to positioning of her arm. Venous Doppler did not show any deep venous thrombosis. Recommended arm elevation while restin vikki DENT/MODL Voice ID: [id number] Report ID: [id number]
[2024-01-31 05:29] LABS: Absolute Eosinophils 0.2 K/uL (0-0.5); Absolute Lymphocytes (CBC) 0.4 K/uL (0.7-4.9); Absolute Neutrophil 15.6 K/uL (1.8-8.0); Basophils % 0.2 % (0-1.3); Eosinophils % 1.4 % (0-4.4); Hematocrit 35.5 % (36.0-45.0); Hemoglobin 11.2 g/dL (12.0-15.0); Lymphocytes % 2.1 % (15.3-44.8); MCHC 31.5 g/dL (32.0-36.0); MCV 79.4 fL (80-100); MPV 7.3 fL (7.6-11.3); Neutrophils % 90.3 % (41.7-73.7); Platelets 148 thou/uL (152-406); RBC Red Blood Cell Count 4.47 M/uL (3.86-4.86); Red Cell Distribution Width 17.6 % (12.1-15.2)
[2024-01-31 06:22] LABS: Potassium 4.1 mEq/L (3.5-5.1)
[2024-01-31 06:23] LABS: Anion Gap 7.1 mEq/L (5.0-15.0)
--- NOTE | 2024-01-31 07:57 | RAD REPORT ---
EXAM DESCRIPTION: Amyt Single View01/31/2024 6:40 am CLINICAL HISTORY: Shortness of breath. Chest tube removal. COMPARISON: CT abdomen January 29, 2024 FINDINGS: Patient's previously described small right pneumothorax is equivocally seen on this examin ation. Small right and small to moderate left pleural effusions are present with left basilar atelectasis. Mild bilateral interstitial lung opacities probably mild interstitial pulmonary edema. The heart remains enlarged
[2024-01-31 09:34] LABS: Platelet Estimate ADEQ; White Blood Cell Scan OK (OK)
[2024-01-31 09:35] LABS: Blood Morphology Comment NOT SEEN (NOT SEEN)
--- NOTE | 2024-01-31 18:00 | P.PN ---
Subjective Date of Service: 01/31/24 Chief Complaint: Right-sided pleural effusion right breast mass Subjective: Other (right arm edema, probability of effects of metastatic breast ca again discussed. Pt was a little more receptive to the news today. Understands need for MRI) <Venita Hunter - Last Filed: 01/31/24 17:46> Date of Service: 02/01/24 <Michele Baig Saji - Last Filed: 02/01/24 12:34> Review of Systems 10-point ROS is otherwise unremarkable General: As per HPI Respiratory: As per HPI Integumentary: As per HPI Lymphatics: As per HPI <Venita Hunter - Last Filed: 01/31/24 17:46> Physical Examination - Vital Signs Temperature: 97.1 F Blood Pressure: 128/70 Pulse: 70 Respirations: 14 Pulse Ox (%): 98 - Physical Exam General: Alert, In no apparent distress, Oriented x3 HEENT: Atraumatic, Normocephalic Neck: Supple Respiratory: Normal air movement, Other (O2 at 2L off and on, pt's xray still concerning for small pneumothorax) Cardiovascular: Normal pulses, Regular rate/rhythm Capillary refill: <2 Seconds Gastrointestinal: Soft and benign Musculoskeletal: No clubbing Integumentary: Other (right arm/hand edema) Neurological: Normal speech, Normal tone Urinary: Other (purewick) External genitalia: Deferred Rectal: Deferred - Studies Microbiology Data (last 24 hrs): 01/25/24 14:30 Blood - Blood Aerobic Blood Culture - Final No growth in 5 days. 01/25/24 14:30 Blood - Blood Anaerobic Blood Culture - Final No growth in 5 days. 01/25/24 14:14 Blood - Blood Aerobic Blood Culture - Final No growth in 5 days. 01/25/24 14:14 Blood - Blood Anaerobic Blood Culture - Final No growth in 5 days. Medications List Reviewed: Yes <Venita Hunter - Last Filed: 01/31/24 17:46> Assessment And Plan - Plan - Problems (Diagnosis) (1) Acute hypoxic respiratory failure Current Visit: Yes Status: Acute (2) Pleural effusion, right Current Visit: Yes Status: Acute (3) History of bipolar disorder Current Visit: Yes Status: Acute (4) Chronic kidney disease, stage 3 Current Visit: Yes Status: Acute (5) Acute kidney injury Current Visit: No Status: Acute (6) Altered mental status Current Visit: No Status: Acute (7) Non-STEMI (non-ST elevated myocardial infarction) Current Visit: No Status: Acute - Plan Patient with acute respiratory failure secondary to large right pleural effusion; patient status post chest tube thoracotomy with large amount of serosanguineous fluid removed. Labs will be obtained and sent from the pleural effusion. Dr. Maharaj following. Repeat CT post tube removal shows "small right pneumothorax". O2 at 100% via NRB ordered - 01/31/24 Tube has been removed (01/28). Unfortunately no fluid was sent for eval. (01/29)Pt on and off NRB for resolution of pneumonthorax Bipolar disorder; continue with Depakote and medication for mood stabilization Right breast mass: likely breast CA. Will start workup but will need further outpatient oncologic workup GI and DVT prophylaxis Discharge Plan: Retirement Plan to discharge in: Greater than 2 days <Venita Hunter - Last Filed: 01/31/24 17:46> - Plan Pt seen and examined. I agree with the note by the KEG RAISER. MRI of the liver shows lesions in the liver and spots on T2 vertebrae. Consulted Oncology. <Michele Baig - Last Filed: 02/01/24 12:34>
--- NOTE | 2024-02-01 00:47 | RAD REPORT ---
EXAM DESCRIPTION: MRI - Mri Abdomen W/Wo Cont - 01/31/2024 6:57 pm CLINICAL HISTORY: MRI of the liver without contrast COMPARISON: Abdomen Pelvis Wo Contrast dated 01/29/2024; Abdomen Pelvis Wo Contrast dated 09/21/19 24 TECHNIQUE: Multiplanar multisequence MRI of the abdomen, obtained before and after intravenous adm inistration of 12 mL MultiHance. FINDINGS: Numerous lesions within the upper aspect of the right liver lobe, demonstrating T2 hyperin tense signal and T1 hypointense signal on precontrast images, and arterial phase heterogeneous predom inantly central enhancement, with progressive homogeneous enhancement throughout the lesions, with ul timately mild hypoenhancement relative to the adjacent liver parenchyma. The largest of these is subc apsular near the dome measuring 3.2 x 2.8 cm. There is mild atrophic changes of the left liver lobe. There is smooth outer contour of the liver. Moderate bilateral layering pleural effusions. [id number] free ascites. The spleen, adrenal glands, pancreas, and kidneys are unremarkable. The visualized bowel is unremarkable. Small T2 hypo or hyperdense lesions within the left aspect of L5, L2, and L1 vertebral bodies, indete rminate. IMPRESSION: Numerous lesions within the right liver lobe as above, most of which demonstrating centr al arterial phase enhancement and no appreciable washout, with delete mild hyperenhancement relative to the adjacent liver parenchyma. The enhancement pattern is indeterminate, and benign including atyp ical HCC or cholangiocarcinoma are considered especially given that these may be new compared to prio r CTs. Benign etiologies such as hepatic adenomatosis or atypical hemangiomata are considered less li filippo. Indeterminate numerous lumbar vertebral T2 hyperintense lesions, may represent hemangiomata versus os seous metastatic disease. Moderate bilateral layering pleural effusions and [id number] free ascites.
[2024-02-01 05:50] LABS: Absolute Basophils 0.1 K/uL (0-0.5); Absolute Eosinophils 0.2 K/uL (0-0.5); Absolute Lymphocytes (CBC) 0.3 K/uL (0.7-4.9); Absolute Monocytes 0.9 K/uL (0.1-1.3); Basophils % 0.4 % (0-1.3); Eosinophils % 1.2 % (0-4.4); Hematocrit 34.5 % (36.0-45.0); Hemoglobin 10.6 g/dL (12.0-15.0); Lymphocytes % 2.1 % (15.3-44.8); MCH 24.4 pg (27.0-35.0); MCHC 30.6 g/dL (32.0-36.0); MCV 79.8 fL (80-100); MPV 8.1 fL (7.6-11.3); Neutrophils % 90.3 % (41.7-73.7); Platelets 158 thou/uL (152-406); RBC Red Blood Cell Count 4.32 M/uL (3.86-4.86); Red Cell Distribution Width 18.1 % (12.1-15.2)
[2024-02-01 05:53] LABS: Anion Gap 7.2 mEq/L (5.0-15.0); Potassium 4.2 mEq/L (3.5-5.1)
--- NOTE | 2024-02-01 12:44 | P.PN ---
Subjective Date of Service: 02/01/24 Chief Complaint: Right-sided pleural effusion right breast mass Pt is resting comfortably in bed. She is using 2L BNC. MRI liver shows liver lesions and spots on T2 vertebrae. Waiting for oncology eval. No other complaints. Review of Systems General: Weakness Eyes: Unremarkable ENT: Unremarkable Respiratory: SOB with Excertion Cardiovascular: Unremarkable Gastrointestinal: Unremarkable Genitourinary: Unremarkable Musculoskeletal: Unremarkable Integumentary: Unremarkable Neurological: Unremarkable Lymphatics: Unremarkable Physical Examination - Vital Signs Temperature: 98.1 F Blood Pressure: 163/77 Pulse: 76 Respirations: 23 Pulse Ox (%): 93 - Physical Exam General: Alert, In no apparent distress, Oriented x3 HEENT: Atraumatic, Normocephalic, PERRLA Neck: Supple, 2+ carotid pulse no bruit, JVD not distended Respiratory: Clear to auscultation bilaterally, Normal air movement Cardiovascular: No edema, Normal pulses, Regular rate/rhythm, Normal S1 S2 Capillary refill: <2 Seconds Gastrointestinal: Normal bowel sounds, Soft and benign, Non-distended Musculoskeletal: No clubbing, No swelling Integumentary: No rashes, No breakdown, No significant lesion, Other (Peau d' orange on right breast) Neurological: Normal speech, Normal strength at 5/5 x4 extr, Normal tone, Sensation intact Lymphatics: No axilla or inguinal lymphadenopathy - Studies Medications List Reviewed: Yes Assessment And Plan - Plan Acute respiratory failure with hypoxia: Due to large right pleural effusion. S/p chest tube thoracotomy with large amount of serosanguineous fluid removed. Pulm is following. Labs will be obtained and sent from the pleural effusion. Repeat CT post tube removal shows "small right pneumothorax". O2 at 100% via NRB ordered - 01/31/24 Tube has been removed (01/28). Unfortunately no fluid was sent for eval. (01/29)Pt on and off NRB for resolution of pneumonthorax. Currently using 2L BNC. Bipolar disorder: continue with Depakote and mood stabilizer Right breast mass: likely breast cancer. MRI abd/pelvis shows liver lesions and spots on T2. Consulted Oncology. Will start workup but will need further outpatient oncologic workup. GI ppx: SCD DVT ppx: Lovenox Dispo: Pending hospital course
[2024-02-02 12:40] LABS: Absolute Basophils 0.1 K/uL (0-0.5); Absolute Eosinophils 0.1 K/uL (0-0.5); Absolute Lymphocytes (CBC) 0.3 K/uL (0.7-4.9); Absolute Monocytes 0.9 K/uL (0.1-1.3); Absolute Neutrophil 13.7 K/uL (1.8-8.0); Basophils % 0.8 % (0-1.3); Eosinophils % 0.4 % (0-4.4); Hematocrit 35.8 % (36.0-45.0); Hemoglobin 10.9 g/dL (12.0-15.0); MCH 23.9 pg (27.0-35.0); MCHC 30.3 g/dL (32.0-36.0); MCV 78.8 fL (80-100); MPV 8.2 fL (7.6-11.3); Monocytes % 6.3 % (3.3-12.3); Neutrophils % 90.5 % (41.7-73.7); Nucleated Red Blood Cells % 0.1 % (0-0); Platelets 184 thou/uL (152-406); RBC Red Blood Cell Count 4.55 M/uL (3.86-4.86); Red Cell Distribution Width 18.4 % (12.1-15.2)
[2024-02-02 12:58] LABS: Albumin 1.9 g/dL (3.4-5.0); Albumin/Globulin Ratio 0.6 (1.1-1.8); Anion Gap 7.2 mEq/L (5.0-15.0); Bilirubin Total 0.2 mg/dL (0.2-1.0); Globulin 3.1 g/dL (2.3-3.5)
--- NOTE | 2024-02-02 12:59 | P.PN ---
Subjective Date of Service: 02/02/24 Chief Complaint: Right-sided pleural effusion right breast mass Pt is resting comfortably in bed. She is using 2L BNC. MRI liver shows liver lesions and spots on T2 vertebrae. Waiting for right breast biopsy. No other complaints. Review of Systems General: Unremarkable Eyes: Unremarkable ENT: Unremarkable Respiratory: Unremarkable Cardiovascular: Unremarkable Gastrointestinal: Unremarkable Genitourinary: Unremarkable Musculoskeletal: Unremarkable Integumentary: Unremarkable Neurological: Unremarkable Lymphatics: Unremarkable Physical Examination - Vital Signs Temperature: 97.9 F Blood Pressure: 195/81 Pulse: 78 Respirations: 15 Pulse Ox (%): 93 - Physical Exam General: Alert, In no apparent distress, Oriented x3 HEENT: Atraumatic, Normocephalic, PERRLA Neck: Supple, 2+ carotid pulse no bruit Respiratory: Clear to auscultation bilaterally, Normal air movement Cardiovascular: No edema, Normal pulses, Regular rate/rhythm, Normal S1 S2 Capillary refill: <2 Seconds Gastrointestinal: Normal bowel sounds, Soft and benign, Non-distended Musculoskeletal: No clubbing, No swelling Integumentary: No rashes, No breakdown, Skin lesion Neurological: Normal speech, Normal strength at 5/5 x4 extr, Normal tone, Sensation intact Lymphatics: No axilla or inguinal lymphadenopathy - Studies Medications List Reviewed: Yes Assessment And Plan - Plan Acute respiratory failure with hypoxia: Due to large right pleural effusion. S/p chest tube thoracotomy with large amount of serosanguineous fluid removed. Pulm is following. Labs will be obtained and sent from the pleural effusion. Repeat CT post tube removal shows "small right pneumothorax". O2 at 100% via NRB ordered - 01/31/24 Tube has been removed (01/28). Unfortunately no fluid was sent for eval. (01/29)Pt on and off NRB for resolution of pneumonthorax. Currently using 2L BNC. Bipolar disorder: continue with Depakote and mood stabilizer Right breast mass: likely breast cancer. MRI abd/pelvis shows liver lesions and spots on T2. Consulted Oncology. Will start workup but will need further outpatient oncologic work up. Will do right breast biopsy today. GI ppx: SCD DVT ppx: Lovenox Dispo: Pending hospital course
[2024-02-02 13:00] LABS: Potassium 4.2 mEq/L (3.5-5.1)
[2024-02-03] MEDS: HYDRALAZINE HCL 20 MG/ML VIAL IV PRN (09:07)
--- NOTE | 2024-02-03 13:02 | P.PN ---
Subjective Date of Service: 02/03/24 Chief Complaint: Right-sided pleural effusion right breast mass Pt is resting comfortably in bed. She is using 2L BNC. MRI liver shows liver lesions and spots on T2 vertebrae. Waiting for right breast biopsy. No other complaints. Review of Systems General: Unremarkable Eyes: Unremarkable ENT: Unremarkable Respiratory: Unremarkable Cardiovascular: Unremarkable Gastrointestinal: Unremarkable Genitourinary: Unremarkable Musculoskeletal: Unremarkable Integumentary: Unremarkable Neurological: Unremarkable Lymphatics: Unremarkable Physical Examination - Vital Signs Temperature: 97.6 F Blood Pressure: 138/73 Pulse: 98 Respirations: 18 Pulse Ox (%): 92 - Physical Exam General: Alert, In no apparent distress, Oriented x3 HEENT: Atraumatic, Normocephalic Neck: Supple, 2+ carotid pulse no bruit, JVD not distended Respiratory: Clear to auscultation bilaterally, Normal air movement Cardiovascular: No edema, Normal pulses, Regular rate/rhythm, Normal S1 S2, Edema Capillary refill: <2 Seconds Gastrointestinal: Normal bowel sounds, Soft and benign, Non-distended Musculoskeletal: No clubbing, No swelling Integumentary: No rashes, No breakdown, No significant lesion Neurological: Normal gait, Normal speech, Normal strength at 5/5 x4 extr, Normal tone, Sensation intact Lymphatics: No axilla or inguinal lymphadenopathy - Studies Medications List Reviewed: Yes Assessment And Plan - Plan Acute respiratory failure with hypoxia: Due to large right pleural effusion. S/p chest tube thoracotomy with large amount of serosanguineous fluid removed. Pulm is following. Labs will be obtained and sent from the pleural effusion. Repeat CT post tube removal shows "small right pneumothorax". O2 at 100% via NRB ordered - 01/31/24 Tube has been removed (01/28). Unfortunately no fluid was sent for eval. (01/29)Pt on and off NRB for resolution of pneumonthorax. Currently using 2L BNC. Bipolar disorder: continue with Depakote and mood stabilizer Right breast mass: likely breast cancer. MRI abd/pelvis shows liver lesions and spots on T2. Consulted Oncology. Will start workup but will need further outpatient oncologic work up. I called Ultrasound unit for right breast biopsy and they agreed to do the biopsy. leg edema: Will give lasix GI ppx: SCD DVT ppx: Lovenox Dispo: Pending hospital course
[2024-02-03] MEDS: FUROSEMIDE 40 MG/4 ML VIAL IV ONE (14:03)
[2024-02-03] MEDS: ALBUTEROL 2.5 MG/3 ML NEB SOL NEB PRN (20:18)
--- NOTE | 2024-02-04 08:13 | P.PN ---
Subjective Date of Service: 02/04/24 Chief Complaint: Right-sided pleural effusion right breast mass Pt is resting comfortably in bed. She is using 2L BNC. MRI liver shows liver lesions and spots on T2 vertebrae. Waiting for right breast biopsy. Pt refused lab draw this am. I encouraged her to allow the lab support tech to get her blood. No other complaints. Review of Systems General: Unremarkable Eyes: Unremarkable ENT: Unremarkable Respiratory: Unremarkable Cardiovascular: Unremarkable Gastrointestinal: Unremarkable Genitourinary: Unremarkable Musculoskeletal: Unremarkable Integumentary: Unremarkable Neurological: Unremarkable Lymphatics: Unremarkable Physical Examination - Vital Signs Temperature: 98.8 F Blood Pressure: 183/77 Pulse: 86 Respirations: 16 Pulse Ox (%): 90 - Physical Exam General: Alert, In no apparent distress, Oriented x3 HEENT: Atraumatic, Normocephalic, PERRLA Neck: Supple, 2+ carotid pulse no bruit, JVD not distended Respiratory: Clear to auscultation bilaterally, Normal air movement Cardiovascular: No edema, Normal pulses, Regular rate/rhythm, Normal S1 S2 Capillary refill: <2 Seconds Gastrointestinal: Normal bowel sounds, Soft and benign, Non-distended Musculoskeletal: No clubbing, No swelling, No contractures Integumentary: No rashes, No breakdown, Skin lesion, Other (peau d'orange on right breast) Neurological: Normal speech, Normal strength at 5/5 x4 extr, Normal tone, Sensation intact Lymphatics: No axilla or inguinal lymphadenopathy - Studies Medications List Reviewed: Yes Assessment And Plan - Plan Acute respiratory failure with hypoxia: Due to large right pleural effusion. S/p chest tube thoracotomy with large amount of serosanguineous fluid removed. Pulm is following. Labs will be obtained and sent from the pleural effusion. Repeat CT post tube removal shows "small right pneumothorax". O2 at 100% via NRB ordered - 01/31/24 Tube has been removed (01/28). Unfortunately no fluid was sent for eval. (01/29)Pt on and off NRB for resolution of pneumonthorax. Currently using 2L BNC. Bipolar disorder: continue with Depakote and mood stabilizer Right breast mass: likely breast cancer. MRI abd/pelvis shows liver lesions and spots on T2. Consulted Oncologist, Dr. العلي. Will start workup but will need further outpatient oncologic work up. I called Ultrasound unit for right breast biopsy on 02/02/24, but it has not been done. leg edema: Will give lasix GI ppx: SCD DVT ppx: Lovenox Dispo: Pending hospital course
--- NOTE | 2024-02-05 08:19 | P.PN ---
Subjective Date of Service: 02/05/24 Chief Complaint: Right-sided pleural effusion right breast mass Admitted for shortness of breath, She is using 2L NC.large right pleural effusion.S/p chest tube thoracotomy with large amount of serosanguineous fluid removed. Desats on room air, will need home O2 - Physical Exam General: Alert, In no apparent distress, Oriented x3 HEENT: Atraumatic, Normocephalic, PERRLA Neck: Supple, 2+ carotid pulse no bruit, JVD not distended Respiratory: Clear to auscultation bilaterally, Normal air movement Cardiovascular: No edema, Normal pulses, Regular rate/rhythm, Normal S1 S2 Capillary refill: <2 Seconds Gastrointestinal: Normal bowel sounds, Soft and benign, Non-distended Musculoskeletal: No clubbing, No swelling, No contractures Integumentary: No rashes, No breakdown, Skin lesion, Other (peau d'orange on right breast) Neurological: Normal speech, Normal strength at 5/5 x4 extr, Normal tone, Sensation intact Lymphatics: No axilla or inguinal lymphadenopathy Review of Systems Per HPI Physical Examination - Vital Signs Temperature: 97.6 F Blood Pressure: 152/93 Pulse: 88 Respirations: 16 Pulse Ox (%): 92 - Studies Medications List Reviewed: Yes Assessment And Plan - Plan Assessment And Plan Acute respiratory failure with hypoxia: Due to large right pleural effusion. S/p chest tube thoracotomy with large amount of serosanguineous fluid removed. Pulm is following. Labs will be obtained and sent from the pleural effusion. Repeat CT post tube removal shows "small right pneumothorax". O2 at 100% via NRB ordered - 01/31/24 Tube has been removed (01/28). Unfortunately no fluid was sent for eval. (01/29)Pt on and off NRB for resolution of pneumonthorax. Currently using 2L BNC. Desats on room air will need home O2 Bipolar disorder: continue with Depakote and mood stabilizer Right breast mass: likely breast cancer. MRI abd/pelvis shows liver lesions and spots on T2. Consulted Oncologist, Dr. العلي. Will start workup but will need further outpatient oncologic work up. I called Ultrasound unit for right breast biopsy on 02/02/24, but it has not been done. Scheduled for breast biopsy by surgery leg edema: Will give lasix GI ppx: SCD DVT ppx: Lovenox Dispo: Pending hospital course Discharge Plan: Home - Code Status/Comfort Care Code Status: Full Code Critical Care: No Time Spent Managing PTS Care (In Minutes): 35
--- NOTE | 2024-02-06 10:55 | P.PN ---
Subjective Date of Service: 02/06/24 Chief Complaint: Right-sided pleural effusion right breast mass Admitted for shortness of breath, She is using 2L NC.large right pleural effusion.S/p chest tube thoracotomy with large amount of serosanguineous fluid removed. Desats on room air, will need home O2 Breast biopsy ordered by oncology for breast mass - Physical Exam General: Alert, In no apparent distress, Oriented x3 HEENT: Atraumatic, Normocephalic, PERRLA Neck: Supple, 2+ carotid pulse no bruit, JVD not distended Respiratory: Clear to auscultation bilaterally, Normal air movement Cardiovascular: No edema, Normal pulses, Regular rate/rhythm, Normal S1 S2 Capillary refill: <2 Seconds Gastrointestinal: Normal bowel sounds, Soft and benign, Non-distended Musculoskeletal: No clubbing, No swelling, No contractures Integumentary: No rashes, No breakdown, Skin lesion, Other (peau d'orange on right breast) Neurological: Normal speech, Normal strength at 5/5 x4 extr, Normal tone, Sensation intact Lymphatics: No axilla or inguinal lymphadenopathy Review of Systems Per HPI Physical Examination - Vital Signs Temperature: 98.0 F Blood Pressure: 181/84 Pulse: 80 Respirations: 16 Pulse Ox (%): 90 - Studies Medications List Reviewed: Yes Assessment And Plan - Plan Assessment And Plan Acute respiratory failure with hypoxia: Due to large right pleural effusion. S/p chest tube thoracotomy with large amount of serosanguineous fluid removed. Pulm is following. Labs will be obtained and sent from the pleural effusion. Repeat CT post tube removal shows "small right pneumothorax". O2 at 100% via NRB ordered - 01/31/24 Tube has been removed (01/28). Unfortunately no fluid was sent for eval. (01/29)Pt on and off NRB for resolution of pneumonthorax. Currently using 2L BNC. Desats on room air will need home O2 Bipolar disorder: continue with Depakote and mood stabilizer Right breast mass: likely breast cancer. MRI abd/pelvis shows liver lesions and spots on T2. Consulted Oncologist, Dr. العلي. Will start workup but will need further outpatient oncologic work up. I called Ultrasound unit for right breast biopsy on 02/02/24, but it has not been done. Scheduled for breast biopsy requested by oncology leg edema: Will give lasix GI ppx: SCD DVT ppx: Lovenox Dispo: Pending hospital course - Code Status/Comfort Care Code Status: Full Code Critical Care: No Time Spent Managing PTS Care (In Minutes): 35
[2024-02-06] MEDS: ENSURE PLANT-BASED PROTEIN VANILLA 330 ML CAN PO SCH (21:00)
--- NOTE | 2024-02-07 09:04 | P.DS ---
Admission Date: 01/25/24 Discharge Date: 02/10/24 Disposition: HOSPICE-HOME Discharge Condition: GOOD Reason for Admission: Right-sided pleural effusion right breast mass Brief History of Present Illness: Patient is a 73-year-old female who [facility] with [facility]emia and confusion. Patient was seen in the hospital 4 hours ago with similar complaints. At that time she did not want to stay in the hospital and was d [facility]charged back to the [facility]. However, patient is remained short of breath and hypoxic. Her O2 sats on room air were 50%, and she was sent to the emergency room. In the ER she was obtunded and she was found to have a large right pleural effusion. She had shifting of the mediastinum. Plan was to do a thoracentesis to evacuate the pleural effusion; however, patient was combative and was not remaining still to allow us to get this done. Decision was made to proceed with intubation. Patient was intubated and right-sided thoracentesis secondary to chest tube thoracotomy was performed. Patient had 1.5 L of pleural fluid removed. This appears to be serosanguineous. Labs will be sent. Will review echocardiogram. Pulmonary consultation. Patient will be admitted to the intensive care unit at [facility] for further evaluation. - Physical Exam General: Alert, Cachectic HEENT: Atraumatic, PERRLA, Mucous membr. moist/pink, EOMI, Sclerae nonicteric Neck: Supple, 2+ carotid pulse no bruit, No LAD, Without JVD or thyroid abnormality Respiratory: Diminished (Diminished breath sounds in the right base) Cardiovascular: Regular rate/rhythm, Normal S1 S2, Systolic murmur Gastrointestinal: Normal bowel sounds, Soft and benign, Non-distended, No tenderness Musculoskeletal: No clubbing, No swelling, No tenderness Integumentary: No rashes Neurological: Sensation intact, Cranial nerves 3-12 intact, Lymphatics: No axilla or inguinal lymphadenopathy Hospital Course: 73-year-old female who [facility] with hypoxemia and confusion. Respiratory failure secondary to pleural effusion chest tube was placed, patient was initially placed in ICU. Status post thoracotomy, elevated troponin likely secondary to FL type II, patient was treated with aggressive diuresis., Chest tube placement, chest tube was removed, patient was transferred out of ICU. Patient was noted to have a right breast mass, scheduled for biopsy today. Patient tolerating diet, stable for discharge to home with follow-up appointment with primary care physician. Plan to discharge with hospice, PROBLEM: Right breast mass, refused breast biopsy, breast ultrasound plan to [place] home on hospice Respiratory failure secondary to pleural effusion, status post chest tube placement, treated with aggressive diuresis. Bipolar, resume home meds O2 dependence patient will need home O2 after discharge to group home facility Continue home medicines as previously prescribed GOAL: Clear understanding of disease process INSTRUCTIONS: Physician Discharge Instructions: -Follow-up with PCP in 1 to 2 weeks -Please call Dr. Faith at [phone] if any questions regarding hospital stay -Please call nursing station at [phone] if any nursing or medication questions -Return to the emergency room if symptoms worsen Diet: ADA, low sodium Activity: Fall precautions Vital Signs/Physical Exam: Temp Pulse Resp BP Pulse Ox 98.4 F 78 15 181/65 H 90 L 02/07/24 08:00 02/07/24 08:00 02/07/24 08:00 02/07/24 08:00 02/07/24 08:00 Laboratory Data at Discharge: WBC Cancelled 02/04/24 05:00 Hgb Cancelled 02/04/24 05:00 Hct Cancelled 02/04/24 05:00 Plt Count Cancelled 02/04/24 05:00 PT 14.2 SECONDS (9.5-12.5) H 01/26/24 04:30 INR 1.30 01/26/24 04:30 APTT 35.9 SECONDS (24.3-36.9) 01/26/24 04:30 Sodium Cancelled 02/05/24 05:00 Potassium Cancelled 02/05/24 05:00 BUN Cancelled 02/05/24 05:00 Creatinine Cancelled 02/05/24 05:00 Glucose Cancelled 02/05/24 05:00 Phosphorus 3.1 mg/dL (2.5-4.9) 01/28/24 09:15 Magnesium 1.9 mg/dL (1.6-2.4) 01/28/24 09:15 Total Bilirubin Cancelled 02/04/24 05:00 AST Cancelled 02/04/24 05:00 ALT Cancelled 02/04/24 05:00 Alkaline Phosphatase Cancelled 02/04/24 05:00 Triglycerides 128 mg/dL (<150) 01/26/24 04:30 Cholesterol 130 mg/dL (<200) 01/26/24 04:30 HDL Cholesterol 50 mg/dL (40-60) 01/26/24 04:30 Cholesterol/HDL Ratio 2.60 01/26/24 04:30 Home Medications: Levothyroxine Sodium [Synthroid] 25 mcg PO DAILY 06/08/14 Mirtazapine 7.5 mg PO BEDTIME 01/25/24 NIFEdipine [Nifedipine ER] 30 mg PO DAILY 01/25/24 OLANZapine [Olanzapine] 5 mg PO BID 01/25/24 Sertraline [Zoloft] 50 mg PO DAILY 01/25/24 haloperidoL [Haldol] 0.5 mg PO Q8HP PRN 01/25/24 Physician Discharge Instructions: Patient is a resident at: [address] P:[phone] F:[phone] [facility] - Rep Nancy Rodriguezl P: [phone] F: [phone] Woodyard Operator: Dr. Rea Frost 73-year-old female who [facility] with hypoxemia and confusion. Respiratory failure secondary to pleural effusion chest tube was placed, patient was initially placed in ICU. Status post thoracotomy, elevated troponin likely secondary to FL type II, patient was treated with aggressive diuresis., Chest tube placement, chest tube was removed, patient was transferred out of ICU. Patient was noted to have a right breast mass, scheduled for biopsy today. Patient tolerating diet, stable for discharge to home with follow-up appointment with primary care physician. Patient will need to follow-up with oncology after discharge. Stable to transfer to group home facility with home O2. PROBLEM: Right breast mass, status post biopsy, Respiratory failure secondary to pleural effusion, status post chest tube placement, treated with aggressive diuresis. Bipolar, resume home meds O2 dependence patient will need home O2 after discharge to group home facility Continue home medicines as previously prescribed GOAL: Clear understanding of disease process INSTRUCTIONS: Physician Discharge Instructions: -Follow-up with PCP in 1 to 2 weeks -Please call Dr. Faith at [phone] if any questions regarding hospital stay -Please call nursing station at [phone] if any nursing or medication questions -Return to the emergency room if symptoms worsen Diet: AHA Activity: Fall precautions Followup: Karla Vo MD [Primary Care Provider] - Time spent managing pt's care (in minutes): 55
--- NOTE | 2024-02-08 21:17 | P.PN ---
Subjective Date of Service: 02/08/24 Chief Complaint: Right-sided pleural effusion right breast mass Admitted for shortness of breath, She is using 2L NC.large right pleural effusion.S/p chest tube thoracotomy with large amount of serosanguineous fluid removed. Desats on room air, will need home O2 Breast biopsy ordered by oncology for breast mass (pt refused biopsy, and US breast) - Physical Exam General: Alert, In no apparent distress, Oriented x3 HEENT: Atraumatic, Normocephalic, PERRLA Neck: Supple, 2+ carotid pulse no bruit, JVD not distended Respiratory: Clear to auscultation bilaterally, Normal air movement Cardiovascular: No edema, Normal pulses, Regular rate/rhythm, Normal S1 S2 Capillary refill: <2 Seconds Gastrointestinal: Normal bowel sounds, Soft and benign, Non-distended Musculoskeletal: No clubbing, No swelling, No contractures Integumentary: No rashes, No breakdown, Skin lesion, Other (peau d'orange on right breast) Neurological: Normal speech, Normal strength at 5/5 x4 extr, Normal tone, Sensation intact Lymphatics: No axilla or inguinal lymphadenopathy Review of Systems per HPI Physical Examination - Vital Signs Temperature: 97.8 F Blood Pressure: 129/59 Pulse: 92 Respirations: 16 Pulse Ox (%): 91 - Studies Medications List Reviewed: Yes Assessment And Plan - Plan Assessment And Plan Acute respiratory failure with hypoxia: Due to large right pleural effusion. S/p chest tube thoracotomy with large amount of serosanguineous fluid removed. Pulm is following. Labs will be obtained and sent from the pleural effusion. Repeat CT post tube removal shows "small right pneumothorax". O2 at 100% via NRB ordered - 01/31/24 Tube has been removed (01/28). Unfortunately no fluid was sent for eval. (01/29)Pt on and off NRB for resolution of pneumonthorax. Currently using 2L BNC. Desats on room air will need home O2 plan to order home 02 at discharge Bipolar disorder: continue with Depakote and mood stabilizer Right breast mass: likely breast cancer. MRI abd/pelvis shows liver lesions and spots on T2. Consulted Oncologist, Dr. العلي. Will start workup but will need further outpatient oncologic work up. I called Ultrasound unit for right breast biopsy on 5/24/24, but it has not been done. Scheduled for breast biopsy requested by oncology refused breast biopsy, and ultrasound leg edema: Will give lasix GI ppx: SCD DVT ppx: Lovenox Dispo: Pending hospital course Critical Care: No Time Spent Managing PTS Care (In Minutes): 35
--- NOTE | 2024-02-10 08:43 | P.PN ---
Subjective Date of Service: 02/10/24 Chief Complaint: Right-sided pleural effusion right breast mass Admitted for shortness of breath, She is using 2L NC.large right pleural effusion.S/p chest tube thoracotomy with large amount of serosanguineous fluid removed. Desats on room air, will need home O2 Breast biopsy ordered by oncology for breast mass (pt refused biopsy, and US breast) Plan to set up for discharge with hospice - Physical Exam General: Alert, In no apparent distress, Oriented x3 HEENT: Atraumatic, Normocephalic, PERRLA Neck: Supple, 2+ carotid pulse no bruit, JVD not distended Respiratory: Clear to auscultation bilaterally, Normal air movement Cardiovascular: No edema, Normal pulses, Regular rate/rhythm, Normal S1 S2 Capillary refill: <2 Seconds Gastrointestinal: Normal bowel sounds, Soft and benign, Non-distended Musculoskeletal: No clubbing, No swelling, No contractures Integumentary: No rashes, No breakdown, Skin lesion, Other (peau d'orange on right breast) Neurological: Normal speech, Normal strength at 5/5 x4 extr, Normal tone, Sensation intact Lymphatics: No axilla or inguinal lymphadenopathy Review of Systems per HPI Physical Examination - Vital Signs Temperature: 98 F Blood Pressure: 179/77 Pulse: 86 Respirations: 15 Pulse Ox (%): 90 - Studies Medications List Reviewed: Yes Assessment And Plan - Plan Assessment And Plan Acute respiratory failure with hypoxia: Due to large right pleural effusion. S/p chest tube thoracotomy with large amount of serosanguineous fluid removed. Pulm is following. Labs will be obtained and sent from the pleural effusion. Repeat CT post tube removal shows "small right pneumothorax". O2 at 100% via NRB ordered - 01/31/24 Tube has been removed (01/28). Unfortunately no fluid was sent for eval. (01/29)Pt on and off NRB for resolution of pneumonthorax. Currently using 2L BNC. Desats on room air will need home O2 plan to order home 02 at discharge Plan to discharge to hospice Bipolar disorder: continue with Depakote and mood stabilizer Right breast mass: likely breast cancer. MRI abd/pelvis shows liver lesions and spots on T2. Consulted Oncologist, Dr. العلي. Will start workup but will need further outpatient oncologic work up. I called Ultrasound unit for right breast biopsy on 02/02/24, but it has not been done. Scheduled for breast biopsy requested by oncology refused breast biopsy, and ultrasound leg edema: Will give lasix GI ppx: SCD DVT ppx: Lovenox Dispo: Pending hospital course Discharge Plan: Other (Hospitalist) - Code Status/Comfort Care Comfort Measures: Palliative Care Critical Care: No Time Spent Managing PTS Care (In Minutes): 35
[2024-02-10 12:29] VITALS: O2SAT 94
[2024-02-10 14:34] VITALS: BP 179/77; TEMP 98
== END 2024-02-10 13:06 | disposition hospice, home (50) | DRG 208 ==
LOC: ER 13:29 → ERHOLD 17:16 → 3RD-ICU 19:33 → 4TH 01-28 10:11
PROVIDERS: ADMIT Hospitalist; ATTEND Hospitalist
PROC: 5A1945Z Respiratory Ventilation, 24-96 Consecutive Hours (ICD-10-PCS; principal; 2024-01-25)
PROC: 0BH17EZ Insertion of Endotracheal Airway into Trachea, Via Natural or Artificial Opening (ICD-10-PCS; 2024-01-25)
PROC: 4A033R1 Measurement of Arterial Saturation, Peripheral, Percutaneous Approach (ICD-10-PCS; 2024-01-25)
PROC: 5A09357 Assistance with Respiratory Ventilation, Less than 24 Consecutive Hours, Continuous Positive Airway Pressure (ICD-10-PCS; 2024-01-25)
PROC: 0W9930Z Drainage of Right Pleural Cavity with Drainage Device, Percutaneous Approach (ICD-10-PCS; 2024-01-25)
PROC: 0T9B70Z Drainage of Bladder with Drainage Device, Via Natural or Artificial Opening (ICD-10-PCS; 2024-01-28)
DX: J96.01 Acute respiratory failure with hypoxia (principal); I50.23 Acute on chronic systolic (congestive) heart failure; I21.A1 Myocardial infarction type 2; I13.0 Hypertensive heart and chronic kidney disease with heart failure and stage 1 through stage 4 chronic kidney disease, or unspecified chronic kidney disease; R64 Cachexia; N17.9 Acute kidney failure, unspecified; J91.0 Malignant pleural effusion; J93.9 Pneumothorax, unspecified; C50.911 Malignant neoplasm of unspecified site of right female breast; N18.30 Chronic kidney disease, stage 3 unspecified; F31.9 Bipolar disorder, unspecified; E16.2 Hypoglycemia, unspecified; I48.0 Paroxysmal atrial fibrillation; E03.9 Hypothyroidism, unspecified; Z78.1 Physical restraint status; Z51.5 Encounter for palliative care; Z88.5 Allergy status to narcotic agent; Z88.8 Allergy status to other drugs, medicaments and biological substances; Z79.82 Long term (current) use of aspirin; Z68.24 Body mass index [BMI] 24.0-24.9, adult; Z91.013 Allergy to seafood; Z91.041 Radiographic dye allergy status; Z79.890 Hormone replacement therapy; Z79.899 Other long term (current) drug therapy; Z87.891 Personal history of nicotine dependence; Z90.710 Acquired absence of both cervix and uterus
CPT/HCPCS: 31500; 36415; 36600; 51702; 71045; 71250; 74176; 74183; 76642; 80048; 80053; 80061; 82805; 82947; 83605; 83735; 83880; 84100; 84439; 84443; 84484; 85025; 85610; 85730; 87040; 93005; 93971; 94002; 94003; 94660; 96365; 96375; 97116; 97161; 97530; 99291; A9577; J0360; J0696; J1650; J1940; J2405; J2704; J2919; J3010; J3475; J7030; J7050; J7613; J7644